=== PATIENT | male | born 1965 | race Caucasian/White ===

== ENCOUNTER 2022-06-25 13:11 | Emergency (ER) | payer OTHER, SELFPAY ==
[2022-06-25 13:22] VITALS: BP 161/74; PULSE 96; RESP 18; TEMP 36.8; O2SAT 97; BMI 28.7
[2022-06-25 13:30] VITALS: BP 154/104; PULSE 92; RESP 18; O2SAT 98
--- NOTE | 2022-06-25 13:36 | CRLHL7_ITS ---
For Patients: As a result of the Century Cures Act, medical imaging exams and procedure reports are released immediately into your electronic medical record. You may view this report before your referring provider. If you have questions, please contact your health care provider. INDICATION: CHEST PAIN TECHNIQUE: Chest 1 view. COMPARISON: 12/15/19 FINDINGS: Cardiovascular and mediastinum: Heart size and vasculature are normal in caliber and appearance. Mediastinum is within normal limits. Lungs and pleural space: Lungs are clear. No sign of infiltrate or mass. No sign of pleural effusion. No pneumothorax. Bones and soft tissues: No significant findings. IMPRESSION: Unremarkable chest. Dictated by: Jono Salinas MD @ 06/25/2022 14:23:49 (Electronically Signed)
[2022-06-25 13:43] LABS: Troponin, Point-of-Care* 0.01 ng/ml (0.01-0.04)
[2022-06-25 13:44] LABS: Basophils Absolute Auto 0.03 K/uL (0.00-0.30); Basophils Percent Auto 0.3 % (0.0-3.0); Eosinophils Absolute Auto 0.11 K/uL (0.00-0.50); Eosinophils Percent Auto 1.2 % (0.0-7.0); Hematocrit 44.9 % (37.0-53.0); Hemoglobin* 15.3 gm/dL (13.5-17.5); Immature Granulocytes Abs Auto 0.04 K/uL (0.00-0.30); Lymphocytes Absolute Auto 1.92 K/uL (0.90-2.90); Lymphocytes Percent Auto 21.4 % (20-44); Mean Corpuscular HGB Conc 34 gm/dL (32-36); Mean Corpuscular Hemoglobin 31 pg (26-34); Mean Corpuscular Volume 91 fL (80-100); Monocytes Percent Auto 9.7 % (0.0-11.0); Neutrophils Absolute Auto 6.01 K/uL (1.7-7.0); Platelet Count* 231 K/uL (140-440); RDW Coefficient of Variation % 12.9 % (11.5-15.5); Red Blood Count 4.91 m/uL (4.30-5.90); White Blood Count* 8.98 K/uL (4.50-11.00)
[2022-06-25] MEDS: ASPIRIN 81 MG TAB.CHEW 324 MG PO (13:46)
--- OUTSIDE RECORDS SUMMARY | 2022-06-25 13:47 | XMS_ITS | Clinical Summary ---
:1965 Author Organization [facility] [place] [address] Care Team Providers Name Role Phone Leticia Armendariz MD Primary Care Provider Allergies No known active allergies Medications Medication Sig Dispensed Refills Start Date End Date Status fenofibrate TAKE 2 TABLETS 0 08/14/2020 Ac tive nanocrystallized (TRICOR) BY MOUTH DAILY. 48 mg tablet omeprazole (PRILOSEC) 20 Take 20 mg by 0 Active mg Delayed-Release mouth. capsule tamsulosin (FLOMAX) 0.4 Take 0.8 mg by 0 08/06/2020 Active mg capsule mouth. sildenafil citrate Take 1 Tablet 0 10/31/2021 Active (VIAGRA) 100 mg tablet by mouth one time if needed. losartan (COZAAR) 50 mg Take 1 Tablet 90 Tablet 1 04/06/2022 Active tabletIndications: (50 mg) by Essential hypertension mouth once daily. amLODIPine (NORVASC) 5 mg Take 1 Tablet 90 Tablet 2 04/30/2022 Active tabletIndications: Benign (5 mg) by mouth essential HTN once daily. zolpidem (AMBIEN) 10 mg Take 1 Tablet 30 Tablet 0 05/05/2022 Active tabletIndications: (10 mg) by Primary insomnia mouth at bedtime if needed for Sleep. Active Problems Problem Noted Date Pulmonary nodules 02/22/2020 Overview: Formatting of this note might be differe nt from the original. 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 er 01/03/2018 Primary insomnia 01/03/2018 Atrial fibrillation status post cardioversion 08/24/20 13 Essential hypertension 08/24/2013 Esophageal reflux 12/02/2005 Encounters Date Type Specialty Care Team Description 06/06/2022 Emergency TorjaienAllison Facial l aceration, initial encounter (Primary Dx); DICK Knapp Injury of head, initial encounter; Nasal laceratio n, initial encounter 06/06/2022 Travel 04/07/2022 Office Visit Jeremias Horn MD Fol low Up (Cervical/ Lumbar Spine) 04/07/2022 Travel 03/25/2022 Telephone Jeremias Horn MD from Last 3 Months Immunizations Name Administration Dates Next Due Tdap 03/29/2016, 02/03/2006 Family History Medical History Relation Name Comments Other Father PVD Relation Name Status Comments Father Alive Mother Alive Social History Tobacco Use Types Packs/Day Years Used Date Current Every Day Smoker Cigarettes 0.5 Jean t: 09/02/2009 Smokeless Tobacco: Never Used Tobacco Cessation: Ready to Quit: Yes; C ounseling Given: Yes Comments: previous use 1.0ppd for 30 yea rs Alcohol Use Standard Drinks/Week Comments No 0 (1 standard drink = 0.6 oz pure alcoho l) 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 Date Recorded Not on file COVID-19 Exposure Response Date Recorded In the last 10 days, have you been in contact with No / Unsu re 06/06/2022 4:16 PM CDT someone who was confirmed or suspected to have Coronavirus/COVID-19? Obstetrics History Last Filed Vital Signs Vital Sign Reading Time Taken Comments Blood Pressure 130/80 06/06/2022 5:00 PM CDT Pulse 79 06/06/2022 5:00 PM CDT Temperature 36.8 ??C (98.2 ??F) 06/06/2022 4:20 PM CDT Respiratory Rate 18 06/06/2022 5:00 PM CDT Oxygen Saturation 99% 06/06/2022 5:00 PM CDT Inhaled Oxygen Concentration - - Weight 90.7 kg (200 lb) 06/06/2022 4:20 PM CDT Height 177.8 cm (5' 10) 06/06/2022 4:20 PM CDT Body Mass Index 28.7 06/06/2022 4:20 PM CDT Plan of Treatment Health Maintenance Due Date Last Done Comments Pneumococcal series for age 19-64 1971 (1 - PCV) Hepatitis C screening for age 0703/18/1983 18-79 Zoster (shingles) series for age 0703/18/2015 50+ (1 of 2) Lipids for age 45-75 04/01/2016 04/01/2011 COVID-19 vaccine series (3 - 07/01/2021 05/06/2021, 021 Booster for Moderna series) Influenza for age 50-64 05/06/2022 Depression screening for age 12+ 12/24/2022 12/24/2021 BMI (ht and wt on same day) for 04/07/2023 04/07/2022, 02/03, age 18+ 12/24/2021, Additional history exists Colonoscopy through age 75 06/25/2025 06/25/2015 Tetanus booster 03/29/2026 03/29/2016, 02/03/2006 Tdap Completed 03/29/2016, 02/03/2006 Procedures Procedure Name Priority Date/Time Associated Comments Diagnosis CT HEAD BRAIN AND STAT 06/06/2022 4:56 PM Resu lts for this FACIAL BONES WO CDT procedure ar e in the results section. LACERATION REPAIR Routine 06/06/2022 4:41 PM Resu lts for this CDT procedure are i n the results section. from Last [address] HEAD BRAIN AND FACIAL BONES WO (06/06/2022 4:56 PM CDT) Anatomical Region Laterality Modality HEAD, BRAIN, SINUS Computed Tomography Specimen (Source) Anatomical Collection Method Collection Time Re ceived Time Location / / Volume Laterality 06/06/2022 5:17 PM CDT Addenda Addendum by Aryan Malloy MD on 10/2021 5:24 PM CDT For Patients: ??As a result of the Century Cures Act, medical imaging exams and procedure reports are released immediately into your electronic medical record. ??You may view this repo rt before your referring provider. ?? If you have questions, please contact [facility] health care provider. Indication: Laceration Technique: CT examination of the facial bones was p erformed. Imaging was acquired from a above the frontal sinuses through below the hyoid bone. Contrast was not administered. Sagittal and coron al reformatted imaging was also performed. Please note that all CT scans at this [facility] use dose modulation, iterative reconstruction, and/or weight- based dosing when appropriate to reduce radiation dose to as low as reaso nably achievable. Comparison: None Findings: There is no radiopaque foreign body iden tified within the soft tissues. There is carious dentition diffusely. Th is includes abnormal periapical lucencies. Follow-up dental evaluation i s recommended at a clinically appropriate time. There are nasal bone fractures that are probably not acute. Correlate with point tenderness in this area. There are no additional findings suggesting fracture involving the orbits or facial bones. Impression: 1. Nasal bone fractures, nondisplaced. T hey are probably not acute. Correlate with point tenderness in this area. Otherwise, there is no suggestion of acute fracture involving t he orbits or facial bones. 2. Carious dentition for which dental fo llow-up is recommended in the not acute care setting. Please note that all CT scans at this [facility] use dose modulation, iterative reconstruction, and/or weight- based dosing when appropriate to reduce radiation dose to as low as reaso nably achievable. Dictated by Aryan Malloy MD @ 2 5:23:34 PM (Electronically Signed) Impressions 06/06/2022 5:17 PM CDT No acute intracranial posttraumatic findings. Please note that all CT scans at this [facility] use dose modulation, iterative reconstruction, and/or weight-based dosing when appropriate to reduce radiation dose to as low as reasonably achievable. Dictated by Aryan Malloy MD @ 2 5:17:26 PM (Electronically Signed) Narrative 06/06/2022 5:17 PM CDT For Patients: ??As a result of the Century Cures Act, medical imaging exams and procedure report s are released immediately into your [facility] medical record. ??You may view this report before your referring provider. ??If you have questions, please contact your health care provider. INDICATION: Laceration COMPARISON: None TECHNIQUE: CT examination of the head was performed as axial sections without intravenous contrast. Images were obtained from the vertex of the skull through the skull base. Please note that all CT scans at this [facility] use dose modulation, iterative reconstruction, and/or weight-based dosing when appropriate to reduce radiation dose to as low as reasonably achievable. FINDINGS: The brain shows no sign of mass lesion, mass effect, hemorrhage, or edema. The ventricles and sulci are normal in a ppearance for the patient`s age. The visualized portions of the orbits ar e normal in appearance. The osseous structures are normal in the ir appearance with no sign of abnormality in the skull base or calvarium. Procedure Note Aryan Malloy MD - 06/06/2022Format ting of this note might be different from the original. For Patients: As a result of the ntury Cures Act, medical imaging exams and procedure reports are released immediately into your electronic medical record. You may view this report before your referring provider. If you have questions, please contact [facility] care provider. INDICATION: Laceration COMPARISON: None TECHNIQUE: CT examination of the head was performed as axial sections without intravenous contrast. Images were obtained from the vertex of the skull through the skull base. Please note that all CT scans at this fa cility use dose modulation, iterative reconstruction, and/or weight-based dosing when appropriate to reduce radiation dose to as low as reasonably achievable. FINDINGS: The brain shows no sign of mass lesion, mass effect, hemorrhage, or edema. The ventricles and sulci are normal in a ppearance for the patient`s age. The visualized portions of the orbits ar e normal in appearance. The osseous structures are normal in the ir appearance with no sign of abnormality in the skull base or calvarium. IMPRESSION: No acute intracranial posttraumatic find ings. Please note that all CT scans at this fa cility use dose modulation, iterative reconstruction, and/or weight-based dosing when appropriate to reduce radiation dose to as low as reasonably achievable. Dictated by Aryan Malloy MD @ 5:17:26 PM (Electronically Signed) Allison Sahu NP CT LACERATION REPAIR (06/06/2022 4:41 PM CDT) Narrative Allison Sahu NP - 022 4:41 PM CDT Allison Sahu NP ? 06/06/2022 ??5:39 PM LACERATION REPAIR Date/Time: 06/06/2022 4:41 PM Performed by: Allison Sahu NP Authorized by: Allison Sahu NP Consent: ??Consent obtained: ??Verbal ??Consent given by: ??Patient ??Risks, benefits, and alternatives wer e discussed: yes ?Risks discussed: ??Pain and poor cosm etic result ??Alternatives discussed: ??No treatmen t [place] protocol: ??Procedure explained and questions ans wered to patient or proxy's satisfaction: yes ?Relevant documents present and verifi ed: yes ?Test results available: yes ?Imaging studies available: yes ?Required blood products, implants, de vices, and special equipment available: no ?Site/side marked: yes ?Immediately prior to procedure, a hayder e out was called: yes ?Patient identity confirmed: ??Verball y with patient Anesthesia: ??Anesthesia method: ??Topical applicat ion ??Topical anesthetic: ??LET Laceration details: ??Location: ??Face ??Face location: ??Forehead (nose sutur e) ??Length (cm): ??5 ??Depth (mm): ??6 Pre-procedure details: ??Preparation: ??Patient was prepped an d draped in usual sterile fashion Exploration: ??Limited defect created (wound extende d): no ?Hemostasis achieved with: ??Direct pr essure ??Imaging obtained: x-ray ?Imaging outcome: foreign body not not ed ?Wound exploration: entire depth of wo und visualized ?Wound extent: no nerve damage noted, no tendon damage noted and no vascular damage noted ?Contaminated: no ?? Treatment: ??Area cleansed with: ??Saline and Shur -Clens ??Amount of cleaning: ??Standard ??Irrigation solution: ??Sterile saline ??Irrigation volume: ??5000 ??Irrigation method: ??Pressure wash ??Visualized foreign bodies/material re moved: no ?Debridement: ??None ??Undermining: ??None ??Scar revision: no ?? Skin repair: ??Repair method: ??Sutures ??Suture size: ??4-0 ??Suture technique: ??Simple interrupte d ??Number of sutures: ??6 Approximation: ??Approximation: ??Close Repair type: ??Repair type: ??Simple Post-procedure details: ??Dressing: ??Adhesive bandage, antibio tic ointment and non-adherent dressing ??Procedure completion: ??Tolerated wel l, no immediate complications Comments: ?? he has a total of 2 lacerations. ??F irst laceration is on his forehead right side above the eyebrow measuring 2 cm, second laceration is over the nose measuring 3 cm Allison Sahu NP PROCEDURE ORD from Last 3 Months Insurance Payer Benefit Plan Subscriber ID Effective Dates Phone Address Type / Group WC WORKERS WC WORKERS [id number] Effective for [phone] [address] [place] [address] MEDICA MEDICA CHOICE [id number] 2020-Presen [address] [address] [place] [address] Feng Perez Workers Comp Self [birth year] [facility] (Home) [phone] [place] (Work) [id number] Care Teams Glass Wool Blanket Machine Feeder Relationship Specialty Start Date End Date Leticia Armendariz MD PCP - General Internal Medicine 07/27/21 [address] [place], [place] [address]
--- OUTSIDE RECORDS SUMMARY | 2022-06-25 13:47 | XMS_ITS | Encounter Summary ---
:1965 Author Organization [facility] Address [address] [place] [address] Care Team Providers Name Role Phone Leticia Armendariz MD Primary Care Provider Nahum Lemus MD Unavailable Karuna Ramirez MD Unavailable [phone] Karime Castro DO Unavailable Tito Almonte MD Unavailable Torsten Rodriguez MD Unavailable Annabelle Shields CNP Unavailable Reason for Visit Reason Comments Medication Refill ambien Encounter Details Date Type Department Care Team Description 10/31/2021 Refill [facility] Maged Aggarwal, Med ication Refill Clinic [facility] BOURGEOIS (ambien) [address] [place] [address] [place], [place] [phone] (Wo rk) [address] [phone] Social History Tobacco Use Types Packs/Day Years Used Date Smoking Tobacco: Every Day Cigarettes 0.8 25 Smokeless Tobacco: Never Comments: 1 pack daily Alcohol Use Standard Drinks/Week Comments No 0 (1 standard drink = 0.6 oz pure alcoho l) 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 Date Recorded 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 encounter Miscellaneous Notes Telephone Encounter - Natali Hamilton RN - 11/02/2021 10:48 AM CST Routing refill request to provider for review/approval because: Drug not on the [facility] refill protocol Routed to provider covering the letter Too Armendariz FACTURING ASSISTANT documented in this encounter Plan of Treatment Not on filedocumented as of this encounter Visit Diagnoses Diagnosis Primary insomnia Persistent disorder of initiating or adrianne ntaining sleep documented in this encounter Additional Health Concerns Assessment Noted Time PHQ-9 Depression Total Score: 3 01/08/2021 4:16 PM CDT documented as of this encounter Care Teams Automotive Artist Relationship Specialty Start Date End Date Leticia Armendariz, PCP - General Internal Medicine 03/17/15 Nahum Lemus MD 09/16/16 [facility] [address] [facility] [facility] [address] [place] [phone] Karuna Ramirez MD Cardiology 09/16/16 MD Erend[place] Karime Castro, Referring Physician Orthopedics 05/13/17 DO [facility] [address] [id number] Tito Almonte MD MD Orthopedics 05/13/[address] [place], [place] [address] Torsten Rodriguez MD Assigned Musculoskeletal 08/24/20 02/19/22 [address] [facility] Provider [place], [place] [id number] Annabelle Shields CNP Assigned PCP 02/08/[address] [place], [place] [address] documented as of this encounter
--- OUTSIDE RECORDS SUMMARY | 2022-06-25 13:47 | XMS_ITS | Encounter Summary ---
:1965 Author Organization [facility] Address [address] [place] [address] Care Team Providers Name Role Phone Leticia Armendariz MD Primary Care Provider Nahum Lemus MD Unavailable Karuna Ramirez MD Unavailable [phone] Karime Castro DO Unavailable Tito Almonte MD Unavailable Annabelle Shields CNP Unavailable Reason for Visit Reason Comments Medication Refill Encounter Details Date Type Department Care Team Description 02/26/2022 Refill [facility] Maged Aggarwal MD Medication Refill [address] [place] [address] [facility] [place] [address] [phone] Social History Tobacco Use Types Packs/Day Years Used Date Smoking Tobacco: Every Day Cigarettes 0.8 25 Smokeless Tobacco: Never Comments: 1 pack daily Alcohol Use Standard Drinks/Week Comments No 0 (1 standard drink = 0.6 oz pure alcoho l) 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 Date Recorded 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 as of this encounter Miscellaneous Notes Telephone Encounter - Natali Hamilton RN - 02/26/2022 11:31 AM CDT Routing refill request to provider for review/approval because: Drug not on the [facility] refill protocol Routed to covering provider for Juan Colov documented in this encounter Plan of Treatment Not on filedocumented as of this encounter Visit Diagnoses Diagnosis Primary insomnia Persistent disorder of initiating or adrianne ntaining sleep documented in this encounter Additional Health Concerns Assessment Noted Time PHQ-9 Depression Total Score: 3 01/08/2021 4:16 PM CDT documented as of this encounter Care Teams Pharmacognosist Relationship Specialty Start Date End Date Leticia Armendariz MD PCP - General Internal Medicine 03/17/15 Nahum Lemus MD 09/16/16 [place] [facility] [address] [place] [id number] Karuna Ramirez MD MD Cardiology 09/16/16 Karime Castro DO Referring Physician Orthopedics 05/13/17 [facility] [address] [id number] Tito Almonte MD MD Orthopedics 05/13/[address] [place], [place] [address] Annabelle Shields, LINSEED CAKE TRIMMER Assigned PCP 02/08/[address] [place], [place] [id number] documented as of this encounter
--- OUTSIDE RECORDS SUMMARY | 2022-06-25 13:47 | XMS_ITS | Encounter Summary ---
:1965 Author Organization [facility] Address [address] [place] [address] Care Team Providers Name Role Phone Leticia Armendariz MD Primary Care Provider Nahum Lemus MD Unavailable Karuna Ramirez MD Unavailable [phone] Karime Castro DO Unavailable Tito Almonte MD Unavailable Annabelle Shields CNP Unavailable Reason for Visit Reason Comments Medication Refill Encounter Details Date Type Department Care Team Description 04/03/2022 Refill [facility] Annabelle Shields CNP Medication Refill [place] [address] [address] [facility] [address] [facility] [place] [address] [facility] [place] [address] [phone] Social History Tobacco Use Types Packs/Day Years Used Date Smoking Tobacco: Every Day Cigarettes 0.8 25 Smokeless Tobacco: Never Comments: 1 pack daily Alcohol Use Standard Drinks/Week Comments No 0 (1 standard drink = 0.6 oz pure alcoho l) 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 Date Recorded Male 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 Patient is seeing Dr. Armendariz at [facility], please advise pharmacy to forward to Dr. Armendariz at [facility], see my note from 02/04/22. Please inform pharmacy to send all further refills to [facility]. Telephone Encounter - Akila Low RN - 04/05/2022 6:45 PM CDT Pending Prescriptions: Disp Refills losartan (COZAAR) 50 MG tablet [Pharmacy M*90 tab*2 Sig: TAKE 1 TABLET BY MOUTH EVERY DAY Routing refill request to provider for review/approval because: Patient needs to be seen because it has been more than 1 year since last office visit. documented in this encounter Plan of Treatment Not on filedocumented as of this encounter Visit Diagnoses Diagnosis Atrial fibrillation status post cardiove rsion documented in this encounter Additional Health Concerns Assessment Noted Time PHQ-9 Depression Total Score: 3 01/08/2021 4:16 PM CDT documented as of this encounter Care Teams Joiner Apprentice Relationship Specialty Start Date End Date Leticia Armendariz MD PCP - General Internal Medicine 03/17/15 Nahum Lemus MD 09/16/16 [place] [facility] [address] [facility] [facility] [address] [place] [phone] Karuna Ramirez MD MD Cardiology 09/16/16 Karime Castro DO Referring Physician Orthopedics 05/13/17 [facility] [address] [facility] [address] [place] [address] Tito Almonte MD MD Orthopedics 05/13/17 [address] [facility] [address] [place] [address] Annabelle Shields, EDISON Assigned PCP 02/08/21 [address] [place] [address] documented as of this encounter
--- OUTSIDE RECORDS SUMMARY | 2022-06-25 13:47 | XMS_ITS | Encounter Summary ---
:1965 Author Organization [place] Address [address] [place] [address] Care Team Providers Name Role Phone Leticia Armendariz MD Primary Care Provider Nahum Lemus MD Unavailable Karuna Ramirez MD Unavailable [phone] Karime Castro DO Unavailable Tito Almonte MD Unavailable Torsten Rodriguez MD Unavailable Annabelle Shields CNP Unavailable Reason for Visit Reason Comments Medication Refill Encounter Details Date Type Department Care Team Description 11/12/2021 Refill [facility] Annabelle Shields CNP Medication Refill [address] [place] [address] [facility] [place] [address] [phone] Social History Tobacco Use Types Packs/Day Years Used Date Smoking Tobacco: Every Day Cigarettes 0.8 25 Smokeless Tobacco: Never Comments: 1 pack daily Alcohol Use Standard Drinks/Week Comments No 0 (1 standard drink = 0.6 oz pure alcoho l) 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 Date Recorded 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 Telephone Encounter - Janina Pavon RN - 11/13/2021 10:13 AM CST Prescription approved per [facility] Refill Protocol. Routing to [place]/[facility] [employer]. The Pt is due for a visit with PCP in January with a new provider Janina Polk RN, BSN LIFE REFUGE SPECIALIST documented in this encounter Plan of Treatment Not on filedocumented as of this encounter Visit Diagnoses Diagnosis Dysuria documented in this encounter Additional Health Concerns Assessment Noted Time PHQ-9 Depression Total Score: 3 01/08/2021 4:16 PM CDT documented as of this encounter Care Teams Dry Roller Relationship Specialty Start Date End Date Leticia Armendariz, PCP - General Internal Medicine 03/17/15 Nahum Lemus MD 09/16/16 [facility] [address] [facility] [place] [address] Karuna Ramirez MD Cardiology 09/16/16 MD [place] Karime Castro, Referring Physician Orthopedics 05/13/[address] [facility] [address] [facility] [address] [place] [address] Tito Almonte MD MD Orthopedics 05/13/[address] [place] [address] Torsten Rodriguez MD Assigned Musculoskeletal 08/24/20 02/19/22 909 [facility] Provider [place], [place] [address] Annabelle Shields CNP Assigned PCP 02/08/[address] [place], [place] [id number] documented as of this encounter
--- OUTSIDE RECORDS SUMMARY | 2022-06-25 13:47 | XMS_ITS | Encounter Summary ---
:1965 Author Organization [place] Address [address] [place] [address] Care Team Providers Name Role Phone Leticia Armendariz MD Primary Care Provider Nahum Lemus MD Unavailable Karuna Ramirez MD Unavailable [phone] Karime Castro DO Unavailable Tito Almonte MD Unavailable Leticia Armendariz MD Unavailable Cristian Cooper MD Unavailable Torsten Rodriguez MD Unavailable Encounter Details Date Type Department Care Team Description 01/15/2021 Travel Social History Tobacco Use Types Packs/Day Years Used Date Smoking Tobacco: Every Day Cigarettes 0.8 25 Smokeless Tobacco: Never Comments: 1 pack daily Alcohol Use Standard Drinks/Week Comments No 0 (1 standard drink = 0.6 oz pure alcoho l) 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 Date Recorded 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 documented as of this encounter Plan of Treatment Not on filedocumented as of this encounter Visit Diagnoses Not on filedocumented in this encounter Additional Health Concerns Assessment Noted Time PHQ-9 Depression Total Score: 3 01/08/2021 4:16 PM CDT documented as of this encounter Care Teams Scratch Brusher Relationship Specialty Start Date End Date Leticia Armendariz, PCP - General Internal Medicine 03/17/15 Nahum Lemus MD 09/16/16 [place] [facility] [address] [facility] [place] [address] Karuna Ramirez MD Cardiology 09/16/16 MD Erendira Karime Castro, Referring Physician Orthopedics 05/13/17 DO [facility] [address] [facility] [address] [place], [place] [phone] Tito Almonte MD MD Orthopedics 05/13/[address] [place], [place] [phone] Leticia Armendariz, Assigned PCP 12/30/19 02/07/21 [facility] [address] [place] [address] Cristian Cooper MD Assigned Heart and 06/27/20 07/11/21 [address], Vascular Provider [facility] [address] [place], [place] [address] Torsten Rodriguez MD Assigned Musculoskeletal 08/24/20 02/19/22 [address] [facility] [place] [address] documented as of this encounter
--- OUTSIDE RECORDS SUMMARY | 2022-06-25 13:47 | XMS_ITS | Encounter Summary ---
:1965 Author Organization [place] Address [address] [place] [address] Care Team Providers Name Role Phone Leticia rAmendariz MD Primary Care Provider Nahum Lemus MD Unavailable Karuna Ramirez MD Unavailable [phone] Karime Castro DO Unavailable Tito Almonte MD Unavailable Leticia Armendariz MD Unavailable Cristian Cooper MD Unavailable Torsten Rodriguez MD Unavailable Reason for Visit Reason Comments Medication Refill Encounter Details Date Type Department Care Team Description [facility] Leticia Armendariz, Medication Refill [place] MD [address] [place] [address] 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 documented as of this encounter Miscellaneous Notes Telephone Encounter - Jasmin Mcdowell MA - 02/05/2021 7:04 AM CDT Controlled Substance Refill Request for zolpidem (AMBIEN) 10 MG tablet 30 tablet 1 10/06/2020 Problem List Complete: No PROVIDER TO CONSIDER COMPLETION OF PROBLEM LIST AND OVERVIEW/CONTROLLED SUBSTANCE AGREEMENT Last Written Prescription Date: 10/06/2020 Last Fill Quantity: 30, # refills: 1 THE MOST RECENT OFFICE VISIT MUST BE WITHIN THE PAST 3 MONTHS. AT LEAST ONE FACE TO FACE VISIT MUST OCCUR EVERY 6 MONTHS. ADDITIONAL VISITS CAN BE VIRTUAL. (THIS STATEMENT SHOULD BE DELETED.) Last Office Visit with [facility] primary care provider: 01/29/2021 Future Office visit: Controlled substance agreement: Encounter-Level CSA: There are no encounter-level csa. Patient-Level CSA: There are no patient-level csa. Last Urine Drug Screen: No results found for: CDAUT, No results found for: COMDAT, No results found for: THC13, PCP13, COC13, MAMP13, OPI13, AMP13, BZO13, TCA13, MTD13, BAR13, OXY13, PPX13, BUP13 Processing: Rx to be electronically transmitted to pharmacy by provider [email or web address] documented in this encounter Plan of Treatment Not on filedocumented as of this encounter Visit Diagnoses Diagnosis Primary insomnia Persistent disorder of initiating or adrianne ntaining sleep documented in this encounter Additional Health Concerns Assessment Noted Time PHQ-9 Depression Total Score: 3 01/08/2021 4:16 PM CDT documented as of this encounter Care Teams Alteration Hand Relationship Specialty Start Date End Date Leticia Armendariz, PCP - General Internal Medicine 03/17/15 Nahum Lemus MD 09/16/16 [facility] [address] [place] [address] Karuna Ramirez MD Cardiology 09/16/16 MD Erendira Karime Castro, Referring Physician Orthopedics 05/13/17 DO [facility] [address] [facility] [address] [place] [address] Tito Almonte MD MD Orthopedics 05/13/[address] [place] [address] Leticia Armendariz, Assigned PCP 12/30/19 02/07/21 [facility] [address] [place], [place] [phone] Cristian Cooper MD Assigned Heart and 06/27/20 07/11/21 [address], Vascular Provider [facility] [address] [place], [place] [address] Torsten Rodriguez MD Assigned Musculoskeletal 08/24/20 02/19/[address] [place] [address] documented as of this encounter
--- OUTSIDE RECORDS SUMMARY | 2022-06-25 13:47 | XMS_ITS | Encounter Summary ---
:1965 Author Organization [place] Address [address] [place] [address] Care Team Providers Name Role Phone Leticia Armendariz MD Primary Care Provider Nahum Lemus MD Unavailable Karuna Ramirez MD Unavailable [phone] Karime Castro DO Unavailable Tito Almonte MD Unavailable Leticia Armendariz MD Unavailable Cristian Cooper MD Unavailable Torsten Rodriguez MD Unavailable Encounter Details Date Type Department Care Team Description 01/29/2021 Travel Social History Tobacco Use Types Packs/Day Years Used Date Smoking Tobacco: Every Day Cigarettes 0.8 25 Smokeless Tobacco: Never Comments: 1 pack daily Alcohol Use Standard Drinks/Week Comments No 0 (1 standard drink = 0.6 oz pure alcoho l) 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 Date Recorded 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 Date Recorded In the [...] documented as of this encounter Care Teams Rivet Maker Relationship Specialty Start Date End Date Leticia Armenadriz, PCP - General Internal Medicine 03/17/15 Nahum Lemus MD 09/16/16 [place] [facility] [address] [facility] [place] [address] Karuna Ramirez MD Cardiology 09/16/16 MD Erendira Karime Castro, Referring Physician Orthopedics 05/13/17 DO [facility] [address] [facility] [address] [place], [place] [phone] Tito Almonte MD MD Orthopedics 05/13/[address] [place], [place] [phone] Leticia Armendariz, Assigned PCP 12/30/19 02/07/21 [facility] [address] [place] [address] Cristian Cooper MD Assigned Heart and 06/27/20 07/11/21 [address], Vascular Provider [facility] [address] [place], [place] [address] Torsten Rodriguez MD Assigned Musculoskeletal 08/24/20 02/19/22 909 [place] [address] documented as of this encounter
--- OUTSIDE RECORDS SUMMARY | 2022-06-25 13:47 | XMS_ITS | Encounter Summary ---
:1965 Author Organization [place] Address [address] [place] [address] Care Team Providers Name Role Phone Leticia Armendariz MD Primary Care Provider Nahum Lemus MD Unavailable Karuna Ramirez MD Unavailable [phone] Karime Castro DO Unavailable Tito Almonte MD Unavailable Leticia Armendariz MD Unavailable Cristian Cooper MD Unavailable Torsten Rodriguez MD Unavailable Reason for Visit Reason Onset Date Comments Panel Management 01/08/2021 PHQ9 is due Encounter Details Date Type Department Care Team Description 01/08/2021 [facility] Annabelle Shields CNP Panel Management (PHQ9 [facility] [place] [address] [facility] is due) [address] [place] [address] [facility] [place] [address] Social History Tobacco Use Types Packs/Day Years Used Date Smoking Tobacco: Every Day Cigarettes 0.8 25 Smokeless Tobacco: Never Comments: 1 pack daily Alcohol Use Standard Drinks/Week Comments No 0 (1 standard drink = 0.6 oz pure alcoho l) 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 Date Recorded 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 documented as of this encounter Miscellaneous Notes Telephone Encounter - Opal Mclean MA - 01/08/2021 4:16 PM CDT Patient Quality Outreach Summary: Patient has the following on his problem list/HM: Depression / Dysthymia review 6 Month Remission: 4-8 month window range: 12 Month Remission: 10-14 month window range: PHQ-9 SCORE 12/20/2019 02/19/2020 01/08/2021 PHQ-9 Total Score MyChart - - - PHQ-9 Total Score 0 19 3 If PHQ-9 recheck is 5 or more, route to provider for next steps. Patient is due/failing the following: PHQ-9 Needed Type of outreach: Patient was seen today and PHQ9 was done in clinic. Questions for provider review: None Opal Mclean MA Chart routed to closed. documented in this encounter Plan of Treatment Not on filedocumented as of this encounter Visit Diagnoses Not on filedocumented in this encounter Additional Health Concerns Assessment Noted Time PHQ-9 Depression Total Score: 3 01/08/2021 4:16 PM CDT documented as of this encounter Care Teams Jinrikisha Driver Relationship Specialty Start Date End Date Leticia Armendariz, PCP - General Internal Medicine 03/17/15 Nahum Lemus MD 09/16/16 [place] [facility] [address] [facility]1] [place] [phone] Karuna Ramirez MD Cardiology 09/16/16 MD Erendira Karime Castro, Referring Physician Orthopedics 05/13/17 DO [facility] [address] [facility] [address] [place], [place] [phone] Tito Almonte MD MD Orthopedics 05/13/[address] [place] [address] Leticia Armendariz, Assigned PCP 12/30/19 02/07/21 [facility] [address] [place] [address] Cristian Cooper MD Assigned Heart and 06/27/20 07/11/21 [address], Vascular Provider [facility] [address] [place], [place] [address] Torsten Rodriguez MD Assigned Musculoskeletal 08/24/20 02/19/22 [address] [facility] [place] [address] documented as of this encounter
--- OUTSIDE RECORDS SUMMARY | 2022-06-25 13:47 | XMS_ITS | Clinical Summary ---
:1965 Author Organization [place] Address [address] [place] [address] Care Team Providers Name Role Phone Leticia Armendariz MD Primary Care Provider Nahum Lemus MD Unavailable Karuna Ramirez MD Unavailable [phone] Karime Castro DO Unavailable Tito Almonte MD Unavailable Annabelle Shields CNP Unavailable Allergies No known active allergies Medications Medication Sig Dispensed Refills Start Date End Date Status omeprazole (PRILOSEC) Take 20 mg by 0 Active 20 MG CR capsule mouth daily ciclopirox (LOPROX) Apply topically 2 90 g 1 08/24/2019 Active 0.77 % times daily creamIndications: Rash sertraline (ZOLOFT) 50 TAKE 1 TABLET BY 30 tablet 0 01/27/2021 Active MG tabletIndications: MOUTH EVERY DAY Mild single current episode of major depressive disorder (H), LUIS FELIPE (generalized anxiety disorder) amLODIPine (NORVASC) 5 TAKE 1 TABLET BY 90 tablet 3 05/08/2021 Active MG tabletIndications: MOUTH EVERY DAY Atrial fibrillation status post cardioversion (H) losartan (COZAAR) 50 TAKE 1 TABLET BY 90 tablet 2 05/19/2021 Active MG tabletIndications: MOUTH EVERY DAY Atrial fibrillation status post cardioversion (H) tamsulosin (FLOMAX) TAKE 1 CAPSULE BY 90 capsule 0 11/13/2021 Active 0.4 MG MOUTH EVERY DAY capsuleIndications: Dysuria fenofibrate (TRICOR) TAKE 2 TABLETS BY 180 tablet 0 01/25/2022 Active 48 MG MOUTH EVERY DAY tabletIndications: Elevated triglycerides with high cholesterol zolpidem (AMBIEN) 10 TAKE 1 TABLET BY 15 tablet 0 04/02/2022 Active MG tabletIndications: MOUTH EVERY DAY Primary insomnia AT BEDTIME NEEDED. Due for follow up for future refills. Active Problems Problem Noted Date Pulmonary nodules 02/22/2020 Overview: Follow up due 02/2021 Dilated aortic root 01/08/2020 Primary insomnia 01/03/2018 Mild single current episode of major depressive disord er 01/03/2018 Essential hypertension 03/30/2017 Tremors of nervous system 10/18/2014 Cervical disc herniation 03/08/2014 HTN (hypertension) 08/24/2013 Atrial fibrillation status post cardioversion 08/24/20 13 CARDIOVASCULAR SCREENING; LDL GOAL LESS THAN 130 08/24 High triglycerides Resolved Problems Problem Noted Date Resolved Date Cervicalgia 02/14/2017 03/29/2017 Low back pain 07/17/2014 07/24/2014 Overview: Diagnosis updated by automated process. Provider to review and confirm. S/P cervical spinal fusion 04/15/2014 03/29/2017 Encounters Date Type Specialty Care Team Description 05/03/2022 Refill Internal Medicine Sascha Fitzgerald MD Medication Refill 04/23/2022 Refill Internal Medicine Annabelle Shields CNP Medi cation Refill 04/03/2022 Refill Internal Medicine Annabelle Shields CNP Medi cation Refill 04/01/2022 Refill Internal Medicine Sascha Fitzgerald MD Medication Refill from Last 3 Months Immunizations Name Administration Dates Next Due TDAP Vaccine (Adacel) 03/29/2016 Tdap (Adacel,Boostrix) 02/03/2006 Family History Medical History Relation Comments Circulatory Father Coronary Artery Disease Father Hyperlipidemia Father Hypertension Father C.A.D. Maternal Grandmother Arthritis Mother Hypertension Mother C.A.D. 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 Filed Vital Signs Vital Sign Reading Time Taken Comments Blood Pressure 134/78 01/29/2021 2:29 PM CDT Pulse 88 01/29/2021 2:29 PM CDT Temperature 36.8 ??C (98.2 ??F) 01/29/2021 2:29 PM CDT Respiratory Rate 16 01/29/2021 2:29 PM CDT Oxygen Saturation 98% 01/29/2021 2:29 PM CDT Inhaled Oxygen Concentration - - Weight 93.4 kg (205 lb 12.8 oz) 01/29/2021 2:29 PM CDT Height 177.8 cm (5' 10) 01/08/2021 2:59 PM CDT Body Mass Index 29.53 01/08/2021 2:59 PM CDT Plan of Treatment Health Maintenance Due Date Last Done Comments ADVANCE CARE PLANNING 1965 ANNUAL REVIEW OF HM ORDERS 1965 CT COLONOGRAPHY 1965 DEPRESSION ACTION PLAN 1965 FIT-DNA (Cologuard) 1965 FLEX SIG 1965 HEPATITIS B IMMUNIZATION (1 1965 of 3 - 3-dose series) COVID-19 Vaccine (#1) 1965 Pneumococcal Vaccine: 1971 Pediatrics (0 to 5 Years) and At-Risk Patients (6 to 64 Years) (1 - PCV) HIV SCREENING 1980 FIT 12/27/2014 12/27/2013 ZOSTER IMMUNIZATION (1 of 2015 2) LUNG CANCER SCREENING 10/26/2016 10/26/2015 YEARLY PREVENTIVE VISIT 01/03/2019 01/03/2018 PHQ-9 07/11/2021 01/08/2021, 02/19/2020, 12/20/2019, Additional history exists INFLUENZA VACCINE (#1) 2022 08/24/2019 (Declined), 07/17/2018 (Declined) COLONOSCOPY 06/25/2025 06/25/2015, 06/25/2015 COLORECTAL CANCER SCREENING 06/25/2025 LIPID 01/29/2026 01/29/2021, 07/12/2018, 04/26/2018, Additional history exists DTAP/TDAP/TD IMMUNIZATION 03/29/2026 03/29/2016, 02/03/2006 (3 - Td or Tdap) HEPATITIS C SCREENING Completed 03/29/2016 IPV IMMUNIZATION Aged Out No longer eligi ble based on patient 's age to complete this topic MENINGITIS IMMUNIZATION Aged Out No longe r eligible based on patient 's age to complete this topic Medical Devices Implanted Type Area Air Conditioner Installer Helper Device Shelf Model / Identifier Expiration Serial / Date Lot Mesh Ultrapro Hernia 2.4x4.7 Large Uhsl Mesh Left: Groin [employer] 11/03/2019 UHSL / Implanted: Qty: 1 on 07/21/2018 by Jono Loving MD at [facility]- / [id number] 4.2x16mm Fixed N/A: Spine 150. 016 / Implanted: Qty: 2 on 04/15/2014 by Umang Polanco MD at [facility] Cervical / 1 2 [id number] Insurance Payer Benefit Plan / Subscriber ID Effective Dates Phone Addre ss Type Group MEDICA MEDICA CHOICE [id number] 2020-Present [phone] [address] [address] Indemnity 2 [place] [address] Feng Perez Personal/Family Self 1965 [id number] (Home) [facility] [phone] Deena AGUILERA (Work) [phone] Feng Perez Behavioral Self 1965 [id number] (Home) [facility] [phone] Deena AGUILERA (Work) [phone] Advance Directives For more information, please contact: [phone] Latest Code Status on File Code Status Date Activated Date Inactivated Comments Full Code 04/12/2019 10:26 AM Question Answer Comments Code status determined by: Discussion with patient/legal dec ision maker Code Status History Code Status Date Activated Date Inactivated Comments Full Code 04/16/2014 7:28 AM 04/12/2019 6:06 AM Full Code 04/15/2014 3:51 PM 04/16/2014 7:28 AM Care Teams Roof Shingler Relationship Specialty Start Date End Date Leticia Armendariz MD PCP - General Internal Medicine 03/17/15 Nahum Lemus MD 09/16/16 [facility] [address] [facility] [address] [place] [phone] Karuna Ramirez MD MD Cardiology 09/16/16 Karime Castro DO Referring Physician Orthopedics 05/13/17 [facility] [address] [facility] [address] [place], [place] [phone] Tito Almonte MD MD Orthopedics 05/13/17 [address] [facility] [address] [place] [address] Annabelle Shields, EDISON Assigned PCP 02/08/21 [address] [place], [place] [phone]
--- OUTSIDE RECORDS SUMMARY | 2022-06-25 13:47 | XMS_ITS | Encounter Summary ---
:1965 Author Organization [place] Address [address] [place] [address] Care Team Providers Name Role Phone Leticia Armendariz MD Primary Care Provider Nahum Lemus MD Unavailable Karuna Ramirez MD Unavailable [phone] Karime Csatro DO Unavailable Tito Almonte MD Unavailable Leticia Armendariz MD Unavailable Cristian Cooper MD Unavailable Torsten Rodriguez MD Unavailable Reason for Visit Reason Comments Medication Refill Encounter Details Date Type Department Care Team Description [facility] Let[facility] Armendariz, Medication Refill Jarrell MD [address] [place] [address] 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 documented as of this encounter Miscellaneous Notes Telephone Encounter - Cecelia Antonio RN - 01/27/2021 11:21 AM CDT Prescription approved per [facility] Refill Protocol. documented in this encounter Plan of Treatment Not on filedocumented as of this encounter Visit Diagnoses Diagnosis Mild single current episode of major dep ressive disorder (H) LUIS FELIPE (generalized anxiety disorder) Generalized anxiety disorder documented in this encounter Additional Health Concerns Assessment Noted Time PHQ-9 Depression Total Score: 3 01/08/2021 4:16 PM CDT documented as of this encounter Care Teams Emergency Room Physician Assistant Relationship Specialty Start Date End Date Leticia Armendariz, PCP - General Internal Medicine 03/17/15 Nahum Lemus MD 09/16/16 [place] [facility] [address] [facility] [address] [place] [phone] Karuna Ramirez MD Cardiology 09/16/16 MD Erendira Karime Castro, Referring Physician Orthopedics 05/13/17 DO [facility] [address] [facility] [address] [place] [address] Tito Almonte MD MD Orthopedics 05/13/17 [address] [facility] [address] [place] [address] Leticia Armendariz, Assigned PCP 12/30/19 02/07/21 [place] [address] [place] [id number] Cristian Cooper MD Assigned Heart and 06/27/20 07/11/21 [address], Vascular Provider [facility] [address] [place] [address] Torsten Rodriguez MD Assigned Musculoskeletal 08/24/20 02/19/22 909 [facility] Provider [place], [place] [phone] documented as of this encounter
--- OUTSIDE RECORDS SUMMARY | 2022-06-25 13:47 | XMS_ITS | Encounter Summary ---
:1965 Author Organization [place] Address [address] [place] [address] Care Team Providers Name Role Phone Leticia Armendariz MD Primary Care Provider Nahum Lemus MD Unavailable Karuna Ramirez MD Unavailable [phone] Karime Castro DO Unavailable Tito Almonte MD Unavailable Cristian Cooper MD Unavailable Torsten Rodriguez MD Unavailable Annabelle Shields CNP Unavailable Reason for Visit Reason Comments Medication Refill Encounter Details Date Type Department Care Team Description 06/05/2021 Refill [facility] Leticia Armendariz, Medication Refill [place] MD [address] [place] [address] [address] [place] [address] [place], [place] [address] (Wo rk) Social History Tobacco Use Types Packs/Day Years Used Date Smoking Tobacco: Every Day Cigarettes 0.8 25 Smokeless Tobacco: Never Comments: 1 pack daily Alcohol Use Standard Drinks/Week Comments No 0 (1 standard drink = 0.6 oz pure alcoho l) 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 Date Recorded 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 documented as of this encounter Miscellaneous Notes Telephone Encounter - Maged Aggarwal MD - 06/08/2021 5:18 PM CDT PDMP checked - no concerns Last office visit 01/29 Last refill 02/05 CSA Telephone Encounter - Natali Hamilton, RN - 06/05/2021 4:26 PM CDT Routing refill request to provider for review/approval because: Drug not on the [facility] refill protocol Routed to covering provider for the letter R documented in this encounter Plan of Treatment Not on filedocumented as of this encounter Visit Diagnoses Diagnosis Primary insomnia Persistent disorder of initiating or adrianne ntaining sleep documented in this encounter Additional Health Concerns Assessment Noted Time PHQ-9 Depression Total Score: 3 01/08/2021 4:16 PM CDT documented as of this encounter Care Teams Paste Up Copy Camera Operator Relationship Specialty Start Date End Date Leticia Armendariz, PCP - General Internal Medicine 03/17/15 Nahum Lemus MD 09/16/16 [facility] [address] [place] [address] Karuna Ramirez MD Cardiology 09/16/16 MD Erend[place] Karime Castro, Referring Physician Orthopedics 05/13/17 DO [place] [facility] [address] [facility] [address] [place], [place] [phone] Tito Almonte MD MD Orthopedics 05/13/[address] [place], [place] [address] Cristian Cooper MD Assigned Heart and 06/27/20 07/11/21 [address], Vascular Provider [address] [place], [place] [address] Torsten Rodriguez MD Assigned Musculoskeletal 08/24/20 02/19/22 [address] Provider [place], [place] [phone] Annabelle Shields, EDISON Assigned PCP 02/08/21 [address] [place], [place] [phone] documented as of this encounter
--- OUTSIDE RECORDS SUMMARY | 2022-06-25 13:47 | XMS_ITS | Encounter Summary ---
:1965 Author Organization [place] Address [address] [place] [address] Care Team Providers Name Role Phone Leticia Armendariz MD Primary Care Provider Nahum Lemus MD Unavailable Karuna Ramirez MD Unavailable [phone] Karime Castro DO Unavailable Tito Almonte MD Unavailable Leticia Armendariz MD Unavailable Cristian Cooper MD Unavailable Torsten Rodriguez MD Unavailable Reason for Visit Reason Comments Pre-Op Exam Encounter Details Date Type Department Care Team Description 01/29/2021 Office Visit [facility] Evelin Lozano CNP Pre-op exam (Primary Dx); Clinic [place] [address] Hip pain, right; [address] [place] [phone] Social History Tobacco Use Types Packs/Day Years Used Date Smoking Tobacco: Every Day Cigarettes 0.8 25 Smokeless Tobacco: Never Comments: 1 pack daily Alcohol Use Standard Drinks/Week Comments No 0 (1 standard drink = 0.6 oz pure alcoho l) 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 Date Recorded 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 documented as of this encounter Last Filed Vital Signs Vital Sign Reading Time Taken Comments Blood Pressure 134/78 01/29/2021 2:29 PM CDT Pulse 88 01/29/2021 2:29 PM CDT Temperature 36.8 ??C (98.2 ??F) 01/29/2021 2:29 PM CDT Respiratory Rate 16 01/29/2021 2:29 PM CDT Oxygen Saturation 98% 01/29/2021 2:29 PM CDT Inhaled Oxygen Concentration - - Weight 93.4 kg (205 lb 12.8 oz) 01/29/2021 2:29 PM CDT Height - - Body Mass Index 29.53 01/08/2021 2:59 PM CDT documented in this encounter Patient Instructions Patient InstructionsEvelin Lozano CNP - 01/29/2021 2:30 PM CDT Pre-op Exam done and cleared for surgery EKG: Ok Labs are pending (done earlier today) Will treat with antibiotic called Doxycycline 100 mg twice daily x 7 days for swollen testicle suspected Epidymidis (history); if no resolve will need follow up appointment to evaluate further Take only blood pressure medications (Amlodopine and Losartan) with sip of water day of surgery documented in this encounter Progress Notes Evelin Lozano CNP - 01/29/2021 2:30 PM CDT [address] [address] Primary Provider: Leticia Armendariz Pre-op Performing Provider: EVELIN LOZANO PREOPERATIVE EVALUATION: Today's date: 01/29/2021 Feng Perez is a 55 year old male who presents for a preoperative evaluation. Surgical Information: Surgery/Procedure: total right hip replacement Surgery Location: [facility] Surgeon: Dr T J Binta Surgery Date: 02/26/21 Time of Surgery: TBD Where patient plans to recover: At home with family Fax number for surgical facility: [phone] Type of Anesthesia Anticipated: General Assessment & Plan The proposed surgical procedure is considered INTERMEDIATE risk. Pre-op exam - cleared for surgery - EKG 12-lead complete w/read - Clinics: normal Hip pain, right - having right Total Hip Replacement on 02/26/2021 Epididymitis - history with some left testicular swelling so will go ahead and treat: - doxycycline hyclate (VIBRA-TABS) 100 MG tablet; Take 1 tablet (100 mg) by mouth 2 times daily for 7 days Risks and Recommendations: The patient has the following additional risks and recommendations for perioperative complications: - No identified additional risk factors other than previously addressed Medication Instructions: Take only Amlodipine and Losartan with sip of water prior to surgery; HOLD all other medications NO NSAID'S. RECOMMENDATION: APPROVAL GIVEN to proceed with proposed procedure, without further diagnostic evaluation. [id number]} Subjective HPI related to upcoming procedure: complete right hip replacement due to severe osteoarthritis with hip pain scheduled for 02/26/2021 Preop Questions 01/29/2021 1. Have you ever had a heart attack or stroke? No 2. Have you ever had surgery on your heart or blood vessels, such as a stent placement, a coronary artery bypass, or surgery on an artery in your head, neck, heart, or legs? No 3. Do you have chest pain with activity? No 4. Do you have a history of heart failure? No 5. Do you currently have a cold, bronchitis or symptoms of other infection? No 6. Do you have a cough, shortness of breath, or wheezing? No 7. Do you or anyone in your family have previous history of blood clots? No 8. Do you or does anyone in your family have a serious bleeding problem such as prolonged bleeding following surgeries or cuts? No 9. Have you ever had problems with anemia or been told to take iron pills? No 10. Have you had any abnormal blood loss such as black, tarry or bloody stools? No 11. Have you ever had a blood transfusion? No 12. Are you willing to have a blood transfusion if it is medically needed before, during, or after your surgery? Yes 13. Have you or any of your relatives ever had problems with anesthesia? No 14. Do you have sleep apnea, excessive snoring or daytime drowsiness? No 15. Do you have any artifical heart valves or other implanted medical devices like a pacemaker, defibrillator, or continuous glucose monitor? No 16. Do you have artificial joints? YES - metal in neck s/p surgery 17. Are you allergic to latex? No Health Care Directive: Patient does not have a Health Care Directive or Living Will: Patient states has Advance Directive and will bring in a copy to clinic. Preoperative Review of HOSPICE CARE CONSULTANT: HOSPICE CARE CONSULTANT reviewed - no record of controlled substances prescribed. Status of Chronic Conditions: A-FIB - Patient had hx of A-fib. Current treatment regimen includes none; had cardioconversion and no problem since (2013) with no issues for stroke and denies significant symptoms of lightheadedness, palpitations or dyspnea. HYPERLIPIDEMIA - Patient has a long history of significant Hyperlipidemia requiring medication for treatment with recent good control. Patient reports no problems or side effects with the medication. HYPERTENSION - Patient has longstanding history of HTN , currently denies any symptoms referable to elevated blood pressure. Specifically denies chest pain, palpitations, dyspnea, orthopnea, PND or peripheral edema. Blood pressure readings have been in normal range. Current medication regimen is as listed below. Patient denies any side effects of medication. See ROS for other details Review of Systems CONSTITUTIONAL: NEGATIVE for fever, chills, change in weight INTEGUMENTARY/SKIN: NEGATIVE for worrisome rashes, moles or lesions EYES: NEGATIVE for vision changes or irritation ENT/MOUTH: NEGATIVE for ear, mouth and throat problems RESP: NEGATIVE for significant cough or SOB CV: NEGATIVE for chest pain, palpitations or peripheral edema; hx of AF and on medication for HTN GI: NEGATIVE for nausea, abdominal pain, heartburn, or change in bowel habits : NEGATIVE for frequency, dysuria, or hematuria; reports testicular enlargement and discomfort with hx of epididymitis MUSCULOSKELETAL: NEGATIVE for significant arthralgias or myalgia; right hip pain and OA NEURO: NEGATIVE for weakness, dizziness or paresthesias ENDOCRINE: NEGATIVE for temperature intolerance, skin/hair changes HEME: NEGATIVE for bleeding problems PSYCHIATRIC: NEGATIVE for changes in mood or affect; on medication for depression Patient Active Problem List Diagnosis Date Noted ??? High triglycerides Priority: Medium ??? Pulmonary nodules 02/22/2020 Priority: Medium Follow up due 02/2021 ??? Dilated aortic root (H) 01/08/2020 Priority: Medium ??? Primary insomnia 01/03/2018 Priority: Medium ??? Mild single current episode of major depressive disorder (H) 01/03/2018 Priority: Medium ??? Essential hypertension 03/30/2017 Priority: Medium ??? Tremors of nervous system 10/18/2014 Priority: Medium ??? Cervical disc herniation 03/08/2014 Priority: Medium ??? HTN (hypertension) 08/24/2013 Priority: Medium ??? Atrial fibrillation status post cardioversion (H) 08/24/2013 Priority: Medium ??? CARDIOVASCULAR SCREENING; LDL GOAL LESS THAN 130 08/24/2013 Priority: Medium Past Medical History: Diagnosis Date ??? A-fib (H) ??? Arrhythmia afib ??? Arthritis hips, back, hands ??? Atrial fibrillation (H) ??? Complication of anesthesia panics when waking up ??? Gastroesophageal reflux disease ??? Hepatitis 15 yrs ago from bad food ??? High triglycerides ??? Hypertension ??? Other chronic pain back, hip and hands ??? Palpitations Past Surgical History: Procedure Laterality Date ??? COLONOSCOPY N/A 06/25/2015 Procedure: COLONOSCOPY; Surgeon: Haven Sosa MD; Location: [facility] ??? DISCECTOMY LUMBAR POSTERIOR MICROSCOPIC TWO LEVELS Right 04/12/2019 Procedure: 1. Right L4-5 hemilaminectomy, medial facetectomy and microdiscectomy 2. Right L5-S1 hemilaminectomy, medial facetectomy and microdiscectomy 3. Use of intraoperative microscope and C-Arm; Surgeon: Umang Sandoval MD; Location: [facility] ??? FUSION CERVICAL ANTERIOR ONE LEVEL 04/15/2014 Procedure: FUSION CERVICAL ANTERIOR ONE LEVEL; Surgeon: Umang Sandoval MD; Location: [facility] ??? GENITOURINARY SURGERY vasectomy ??? HERNIORRHAPHY INGUINAL Left 07/21/2018 Procedure: open left inguinal hernia repair with mesh; Surgeon: Jono Delarosa MD; Location: [facility] ??? TESTICLE SURGERY ??? VASECTOMY ??? VASOVASOSTOMY Current Outpatient Medications Medication Sig Dispense Refill ??? amLODIPine (NORVASC) 5 MG tablet Take 1 tablet (5 mg) by mouth daily 90 tablet 0 ??? ciclopirox (LOPROX) 0.77 % cream Apply topically 2 times daily 90 g 1 ??? fenofibrate (TRICOR) 48 MG tablet Take 2 tablets (96 mg) by mouth daily 180 tablet 1 ??? losartan (COZAAR) 50 MG tablet Take 1 tablet (50 mg) by mouth daily 90 tablet 0 ??? omeprazole (PRILOSEC) 20 MG CR capsule Take 20 mg by mouth daily ??? sertraline (ZOLOFT) 50 MG tablet TAKE 1 TABLET BY MOUTH EVERY DAY 30 tablet 0 ??? tamsulosin (FLOMAX) 0.4 MG capsule Take 1 capsule (0.4 mg) by mouth daily 90 capsule 0 ??? zolpidem (AMBIEN) 10 MG tablet TAKE 1 TABLET BY MOUTH AT BEDTIME NEEDED 30 tablet 1 No Known Allergies Social History Tobacco Use ??? Smoking status: Current Every Day Smoker Packs/day: 0.75 Years: 25.00 Pack years: 18.75 Types: Cigarettes ??? Smokeless tobacco: Never Used ??? Tobacco comment: 1 pack daily Substance Use Topics ??? Alcohol use: No Alcohol/week: 0.0 standard drinks Family History Problem Relation Age of Onset ??? Arthritis Mother ??? Hypertension Mother ??? Circulatory Father ??? Coronary Artery Disease Father ??? Hypertension Father ??? Hyperlipidemia Father ??? C.A.D. Maternal Grandmother ??? C.A.D. Paternal Grandmother ??? Breast Cancer No family hx of ??? Colon Cancer No family hx of ??? Prostate Cancer No family hx of History Drug Use No Comment: clean for 13 years- cocaine Objective BP 134/78 (BP Location: Left arm, Patient Position: Sitting, Cuff Size: Adult Large) Pulse 88 Temp 98.2 ??F (36.8 ??C) (Oral) Resp 16 Wt 93.4 kg (205 lb 12.8 oz) SpO2 98% BMI 29.53 kg/m?? Physical Exam GENERAL APPEARANCE: alert and no distress EYES: EOMI, PERRL HENT: ear canals and TM's normal NECK: no adenopathy, no asymmetry, masses, or scars and thyroid normal to palpation RESP: lungs clear to auscultation - no rales, rhonchi or wheezes CV: regular rates and rhythm, normal S1 S2, no S3 or S4 and no murmur, click or rub ABDOMEN: soft, nontender, no HSM or masses and bowel sounds normal MS: extremities normal- no gross deformities noted, no evidence of inflammation in joints, FROM in all extremities. SKIN: no suspicious lesions or rashes NEURO: Normal strength and tone, sensory exam grossly normal, mentation intact and speech normal PSYCH: mentation appears normal. and affect normal/bright LYMPHATICS: No cervical adenopathy Recent Labs Lab Test 01/29/21 0918 08/22/20 1526 04/04/19 1543 HGB 16.5 15.3 15.8 PLT 209 236 235 NA -- -- 140 POTASSIUM -- -- 4.2 CR -- -- 1.23 Diagnostics: Labs pending at this time. Results will be reviewed when available. EKG: Normal Sinus Rhythm, normal axis, normal intervals, no acute ST/T changes c/w ischemia, no LVH by voltage criteria, improved from EKG 04/04/2019 Had Stress Echocardiogram 01/04/2020 essentially normal Revised Cardiac Risk Index (RCRI): The patient has the following serious cardiovascular risks for perioperative complications: - No serious cardiac risks = 0 points RCRI Interpretation: 1 point: Class II (low risk - 0.9% complication rate) Signed Electronically by: Evelin Lozano CNP Copy of this evaluation report is provided to requesting physician. documented in this encounter Plan of Treatment Not on filedocumented as of this encounter Procedures Procedure Name Priority Date/Time Associated Diagnosis Comme nts EKG 12-LEAD Routine 01/29/2021 3:09 PM Pre-op exam Results f or this COMPLETE W/READ - CDT procedure are in CLINICS the results section. documented in this encounter Results EKG 12-lead complete w/read - Clinics (01/29/2021 3:09 PM CDT) Narrative This result has an attachment that is no t available. Evelin Lozano CNP ECG ORDERABLES documented in this encounter Visit Diagnoses Diagnosis Pre-op exam - Primary Preoperative examination, unspecified Hip pain, right Pain in joint, pelvic region and thigh Epididymitis Orchitis and epididymitis, unspecified documented in this encounter Additional Health Concerns Assessment Noted Time PHQ-9 Depression Total Score: 3 01/08/2021 4:16 PM CDT documented as of this encounter Care Teams Assurance Specialist Relationship Specialty Start Date End Date Leticia Armendariz, PCP - General Internal Medicine 03/17/15 Nahum Lemus MD 09/16/16 [facility] [address] [facility] [place] [address] Karuna Ramirez MD Cardiology 09/16/16 MD Erendira Karime Castro, Referring Physician Orthopedics 05/13/[address] [facility] [address] [facility] [address] [place], [place] [phone] Tito Almonte MD MD Orthopedics 05/13/[address] [place], [place] [phone] Leticia Armendariz, Assigned PCP 12/30/19 02/07/21 [facility] [address] [place] [address] Cristian Cooper MD Assigned Heart and 06/27/20 07/11/21 [address], Vascular Provider [facility] [address] [place], [place] [address] Torsten Rodriguez MD Assigned Musculoskeletal 08/24/20 02/19/22 [address] [facility] [place] [address] documented as of this encounter
--- OUTSIDE RECORDS SUMMARY | 2022-06-25 13:47 | XMS_ITS | Encounter Summary ---
:1965 Author Organization [place] Address [address] [place] [address] Care Team Providers Name Role Phone Leticia Armendariz MD Primary Care Provider Nahum Lemus MD Unavailable Karuna Ramirez MD Unavailable [phone] Karime Castro DO Unavailable Tito Almonte MD Unavailable Annabelle Shields CNP Unavailable Reason for Visit Reason Onset Date Comments Medication Refill CHANGED CLINICS 02/25/2022 CHANGED CLINICS TO [facility] Encounter Details Date Type Department Care Team Description 02/25/2022 Refill [facility] Annabelle Shields CNP Medication Refill; Clinic [address] CHANGED CLINICS [address] [place] [address] (CHANGED CLINICS TO [facility]) [place] [address] Social History Tobacco Use Types Packs/Day Years Used Date Smoking Tobacco: Every Day Cigarettes 0.8 25 Smokeless Tobacco: Never Comments: 1 pack daily Alcohol Use Standard Drinks/Week Comments No 0 (1 standard drink = 0.6 oz pure alcoho l) 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 Date Recorded 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 Goes to [facility]. documented in this encounter Plan of Treatment Not on filedocumented as of this encounter Visit Diagnoses Diagnosis Elevated triglycerides with high cholest [place] Mixed hyperlipidemia Atrial fibrillation status post cardiove rsion documented in this encounter Additional Health Concerns Assessment Noted Time PHQ-9 Depression Total Score: 3 01/08/2021 4:16 PM CDT documented as of this encounter Care Teams Yarn Mercerizer Operator Relationship Specialty Start Date End Date Leticia Armendariz MD PCP - General Internal Medicine 03/17/15 Nahum Lemus MD 09/16/16 [facility] [address] [facility] [address] [place] [phone] Karuna Ramirez MD MD Cardiology 09/16/16 Karime Castro DO Referring Physician Orthopedics 05/13/17 [facility] [address] [phone] Tito Almonte MD MD Orthopedics 05/13/17 [address] [facility] [address] [place], [place] [phone] Annabelle Shields, EDISON Assigned PCP 02/08/21 [address] [place] [address] documented as of this encounter
--- OUTSIDE RECORDS SUMMARY | 2022-06-25 13:47 | XMS_ITS | Encounter Summary ---
:1965 Author Organization [place] Address [address] [place] [address] Care Team Providers Name Role Phone Leticia Armendariz MD Primary Care Provider Nahum Lemus MD Unavailable Karuna Ramirez MD Unavailable [phone] Karime Castro DO Unavailable Tito Almonte MD Unavailable Cristian Cooper MD Unavailable Torsten Rodriguez MD Unavailable Annabelle Shields CNP Unavailable Reason for Visit Reason Comments Medication Refill Encounter Details Date Type Department Care Team Description 05/17/2021 Refill [facility] Annabelle Shields CNP Medication Refill [place] [address] [place] [address] [place] [address] [facility] [place] [address] [phone] Social History Tobacco Use Types Packs/Day Years Used Date Smoking Tobacco: Every Day Cigarettes 0.8 25 Smokeless Tobacco: Never Comments: 1 pack daily Alcohol Use Standard Drinks/Week Comments No 0 (1 standard drink = 0.6 oz pure alcoho l) 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 Date 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 documented in this encounter Plan of Treatment Not on filedocumented as of this encounter Visit Diagnoses Diagnosis Atrial fibrillation status post cardiove rsion documented in this encounter Additional Health Concerns Assessment Noted Time PHQ-9 Depression Total Score: 3 01/08/2021 4:16 PM CDT documented as of this encounter Care Teams Ore Fielder Relationship Specialty Start Date End Date Leticia Armendariz, PCP - General Internal Medicine 03/17/15 Nahum Lemus MD 09/16/16 [facility] [address] [facility] [address] [place] [phone] Karuna Ramirez MD Cardiology 09/16/16 MD Erendira Karime Castro, Referring Physician Orthopedics 05/13/17 DO [facility] [address] [facility] [address] [place], [place] [phone] Tito Almonte MD MD Orthopedics 05/13/[address] [place], [place] [phone] Cristian Cooper MD Assigned Heart and 06/27/20 07/11/[address], Vascular Provider [facility] [address] [place], [place] [address] Torsten Rodriguez MD Assigned Musculoskeletal 08/24/20 02/19/[address] [place] [address] Annabelle Shields, EDISON Assigned PCP 02/08/21 [address] [place] [address] documented as of this encounter
--- OUTSIDE RECORDS SUMMARY | 2022-06-25 13:47 | XMS_ITS | Encounter Summary ---
:1965 Author Organization [place] Address [address] [place] [address] Care Team Providers Name Role Phone Leticia Armendariz MD Primary Care Provider Nahum Lemus MD Unavailable Karuna Ramirez MD Unavailable Karime Castro DO Unavailable Tito Almonte MD Unavailable Leticia Armendariz MD Unavailable Cristian Cooper MD Unavailable Torsten Rodriguez MD Unavailable Encounter Details Date Type Department Care Team Description 01/08/2021 Travel Social History Tobacco Use Types Packs/Day Years Used Date Smoking Tobacco: Every Day Cigarettes 0.8 25 Smokeless Tobacco: Never Comments: 1 pack daily Alcohol Use Standard Drinks/Week Comments No 0 (1 standard drink = 0.6 oz pure alcoho l) 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 Date Recorded 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 Exposure Response Date Recorded In the [...] documented as of this encounter Care Teams Fisher [employer]ef Net Relationship Specialty Start Date End Date Leticia Armendariz, PCP - General Internal Medicine 03/17/15 Nahum Lemus MD 09/16/16 [facility] [address] [facility] [place] [address] Karuna Ramirez MD Cardiology 09/16/16 MD Erendira Karime Castro, Referring Physician Orthopedics 05/13/17 DO [facility] [address] [facility] [address] [place], [place] [phone] Tito Almonte MD MD Orthopedics 05/13/[address] [place], [place] [phone] Leticia Armendariz, Assigned PCP 12/30/19 02/07/21 [facility] [address] [place] [address] Cristian Cooper MD Assigned Heart and 06/27/20 07/11/21 [address], Vascular Provider [facility] [address] [place], [place] [address] Torsten Rodriguez MD Assigned Musculoskeletal 08/24/20 02/19/22 909 [facility] [place] [address] documented as of this encounter
--- OUTSIDE RECORDS SUMMARY | 2022-06-25 13:47 | XMS_ITS | Encounter Summary ---
:1965 Author Organization [place] Address [address] [place] [address] Care Team Providers Name Role Phone Leticia Armendariz MD Primary Care Provider Nahum Lemus MD Unavailable Karuna Ramirez MD Unavailable [phone] Karime Castro DO Unavailable Tito Almonte MD Unavailable Annabelle Shields CNP Unavailable Reason for Visit Reason Comments Medication Refill Encounter Details Date Type Department Care Team Description 04/23/2022 Refill [facility] Annabelle Shields CNP Medication Refill [address] [place] [address] [facility] [place] [address] [phone] Social History Tobacco Use Types Packs/Day Years Used Date Smoking Tobacco: Every Day Cigarettes 0.8 25 Smokeless Tobacco: Never Comments: 1 pack daily Alcohol Use Standard Drinks/Week Comments No 0 (1 standard drink = 0.6 oz pure alcoho l) 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 Date 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 Miscellaneous Notes Telephone Encounter - Maddie Barnhart RN - 04/26/2022 6:03 PM CDT Amlodipine 5 mg tab Patient of [facility] Patient should contact provider at [facility] documented in this encounter Plan of Treatment Not on filedocumented as of this encounter Visit Diagnoses Diagnosis Atrial fibrillation status post cardiove rsion documented in this encounter Additional Health Concerns Assessment Noted Time PHQ-9 Depression Total Score: 3 01/08/2021 4:16 PM CDT documented as of this encounter Care Teams Brand Protection Manager Relationship Specialty Start Date End Date Leticia Armendariz MD PCP - General Internal Medicine 03/17/15 Nahum Lemus MD 09/16/16 [place] [facility] [address] [facility] [facility] [address] [place] [id number] Karuna Ramirez MD MD Cardiology 09/16/16 Karime Castro DO Referring Physician Orthopedics 05/13/17 [facility] [address] [facility] [address] [place], [place] [id number] Tito Almonte MD MD Orthopedics 05/13/17 [address] [facility] [address] [place], [place] [address] Annabelle Shields, EDISON Assigned PCP 02/08/21 Renny [place], [place] [phone] documented as of this encounter
--- OUTSIDE RECORDS SUMMARY | 2022-06-25 13:47 | XMS_ITS | Encounter Summary ---
:1965 Author Organization [place] Address [address] [place] [address] Care Team Providers Name Role Phone Leticia Armendariz MD Primary Care Provider Nahum Lemus MD Unavailable Karuna Ramirez MD Unavailable [phone] Karime Castro DO Unavailable Tito Almonte MD Unavailable Leticia Armendariz MD Unavailable Cristian Cooper MD Unavailable Torsten Rodriguez MD Unavailable Annabelle Shields CNP Unavailable Reason for Visit Reason Onset Date Comments Refill Request 01/29/2021 sertraline (ZOLOFT) 50 MG tablet wants 90 day supply Encounter Details Date Type Department Care Team Description 01/29/2021 Refill [facility] Leticia Armendariz Refill Request Demarco Bender MD (sertraline (ZOLOFT) [address] alth MG tablet wants 90 day [facility] [address] [place] [address]) [place] [address] [phone] Social History Tobacco Use Types Packs/Day Years Used Date Smoking Tobacco: Every Day Cigarettes 0.8 25 Smokeless Tobacco: Never Comments: 1 pack daily Alcohol Use Standard Drinks/Week Comments No 0 (1 standard drink = 0.6 oz pure alcoho l) 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 Date Recorded 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 COVID-19 Exposure Response Date Recorded In [...] documented as of this encounter Care Teams Paint Roller Covermaker Relationship Specialty Start Date End Date Leticia Armendariz, PCP - General Internal Medicine 03/17/15 Nahum Lemus MD 09/16/16 [place] [facility] [address] [facility] [place] [address] Karuna Ramirez MD Cardiology 09/16/16 MD Erendira Karime Castro, Referring Physician Orthopedics 05/13/17 DO [facility] [address] [facility] [address] [place], [place] [phone] Tito Almonte MD MD Orthopedics 05/13/[address] [place], [place] [phone] Leticia Armendariz, Assigned PCP 12/30/19 02/07/21 [facility] [address] [place], [place] [address] Cristian Cooper MD Assigned Heart and 06/27/20 07/11/21 [address], Vascular Provider [address] [place], [place] [address] Torsten Rodriguez MD Assigned Musculoskeletal 08/24/20 02/19/22 909 [facility] SE Provider [place], [place] [phone] Annabelle Shields CNP Assigned PCP 02/08/21 [address] [place] [place], [place] [address] documented as of this encounter
--- OUTSIDE RECORDS SUMMARY | 2022-06-25 13:47 | XMS_ITS | Encounter Summary ---
:1965 Author Organization [place] Address [address] [place] [address] Care Team Providers Name Role Phone Leticia Armendariz MD Primary Care Provider Nahum Lemus MD Unavailable Karuna Ramirez MD Unavailable [phone] Karime Castro DO Unavailable Tito Almonte MD Unavailable Torsten Rodriguez MD Unavailable Annabelle Shields CNP Unavailable Reason for Visit Reason Comments Medication Refill Encounter Details Date Type Department Care Team Description 01/24/2022 Refill [facility] Annabelle Shields CNP Medication Refill [address] [place] [address] [facility] [place] [address] [phone] Social History Tobacco Use Types Packs/Day Years Used Date Smoking Tobacco: Every Day Cigarettes 0.8 25 Smokeless Tobacco: Never Comments: 1 pack daily Alcohol Use Standard Drinks/Week Comments No 0 (1 standard drink = 0.6 oz pure alcoho l) 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 Date Recorded 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 GAIL Chauhan Telephone Encounter - Janina Pavon RN - 01/25/2022 2:30 PM CDT Medication is being filled for 1 time refill only due to: Patient needs to be seen because it has been more than one year since last visit. Routing to MA/TC [place]. The Pt is due for a visit with PCP Janina Polk RN, BSN documented in this encounter Plan of Treatment Not on filedocumented as of this encounter Visit Diagnoses Diagnosis Elevated triglycerides with high cholest [place] Mixed hyperlipidemia documented in this encounter Additional Health Concerns Assessment Noted Time PHQ-9 Depression Total Score: 3 01/08/2021 4:16 PM CDT documented as of this encounter Care Teams Steel Cutter Relationship Specialty Start Date End Date Leticia Armendariz, PCP - General Internal Medicine 03/17/15 Nahum Lemus MD 09/16/16 [place] [facility] [address] [facility] [place] [address] Karuna Ramirez MD Cardiology 09/16/16 MD Erendira Karime Castro, Referring Physician Orthopedics 05/13/17 DO [facility] [address] [facility] [address] [place] [address] Tito Almonte MD MD Orthopedics 05/13/17 [address] [facility] [address] [place], [place] [address] Torsten Rodriguez MD Assigned Musculoskeletal 08/24/20 02/19/22 [address] [place], [place] [address] Annabelle Shields CNP Assigned PCP 02/08/21 [address] [place], [place] [address] documented as of this encounter
--- OUTSIDE RECORDS SUMMARY | 2022-06-25 13:47 | XMS_ITS | Encounter Summary ---
:1965 Author Organization [place] Address [address] [place] [address] Care Team Providers Name Role Phone Leticia Armendariz MD Primary Care Provider Nahum eLmus MD Unavailable Karuna Ramirez MD Unavailable [phone] Karime Castro DO Unavailable Tito Almonte MD Unavailable Leticia Armendariz MD Unavailable Cristian Cooper MD Unavailable Torsten Rodriguez MD Unavailable Encounter Details Date Type Department Care Team Description 01/29/2021 Orders Only [facility] Scr eening for prostate cancer; [place] [facility] Elevated triglycerides with high cholesterol; [address] Dysuria; [place] [address] Atrial fibrillation status p ost cardioversion [phone] Social History Tobacco Use Types Packs/Day Years Used Date Smoking Tobacco: Every Day Cigarettes 0.8 25 Smokeless Tobacco: Never Comments: 1 pack daily Alcohol Use Standard Drinks/Week Comments No 0 (1 standard drink = 0.6 oz pure alcoho l) 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 Date Recorded 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 documented as of this encounter Plan of Treatment Not on filedocumented as of this encounter Procedures Procedure Name Priority Date/Time Associated Diagnosis Comme nts PROSTATE SPECIFIC Routine 01/29/2021 9:18 Screening for Result s for this ANTIGEN SCREEN AM CDT prostate cancer procedure are in the results section. LIPID REFLEX TO Routine 01/29/2021 9:18 Elevated Results f or this DIRECT LDL PANEL AM CDT triglycerides with proce dure are in high cholesterol the results section. COMPREHENSIVE Routine 01/29/2021 9:18 Atrial fibrillation Resu lts for this METABOLIC PANEL AM CDT status post procedure ar e in cardioversion the results section. CBC WITH PLATELETS Routine 01/29/2021 9:18 Dysuria Result s for this AM CDT procedure are i n the results section. documented in this encounter Results (ABNORMAL) Comprehensive metabolic panel FUTURE anytime (01/29/2021 9:18 AM CDT) athologist Signature Sodium 138 133 - 144 01/29/2021 [place] mmol/L 4:39 PM [facility] Potassium 4.1 3.4 - 5.3 01/29/2021 [place] mmol/L 4:39 PM [facility] Chloride 106 94 - 109 01/29/2021 [place] mmol/L 4:39 PM [facility] Carbon Dioxide 31 20 - 32 01/29/2021 [place] mmol/L 4:48 PM [facility] Anion Gap 1 (L) 3 - 14 01/29/2021 [place] mmol/L 4:48 PM [facility] Glucose 86 70 - 99 01/29/2021 [place] mg/dL 4:48 PM [facility] Comment: Fasting specimen Urea Nitrogen 9 7 - 30 mg/dL 01/29/2021 4:48 PM [facility] Creatinine 1.23 0.66 - 1.25 mg/dL 01/29/2021 4:48 PM [facility] GFR Estimate 65 >60 01/29/2021 4:48 PM [facility] mL/min/{1.73_m2} HOSPITAL Comment: Non GFR Calc Starting 08/22/2018, serum creatinine ba sed estimated GFR (eGFR) will be calculated using the Chronic Kidney Dise ase Epidemiology Collaboration (CKD-EPI) equation. GFR Estimate If 76 >60 mL/min/{1.73_m2} 01/29/2021 4: 48 PM [facility] Comment: GFR Calc Starting 08/22/2018, serum creatinine ba sed estimated GFR (eGFR) will be calculated using the Chronic Kidney Dise [facility] Epidemiology Collaboration (CKD-EPI) equation. Calcium 9.3 8.5 - 10.1 mg/dL 01/29/2021 4:48 PM [facility] Bilirubin Total 0.7 0.2 - 1.3 mg/dL 01/29/2021 4:50 PM [facility] Albumin 4.0 3.4 - 5.0 g/dL 01/29/2021 4:50 PM [facility] Protein Total 7.7 6.8 - 8.8 g/dL 01/29/2021 4:50 PM [facility] Alkaline Phosphatase 61 40 - 150 U/L 01/29/2021 4:50 PM [facility] ALT 25 0 - 70 U/L 01/29/2021 4:50 PM [facility] AST 16 0 - 45 U/L 01/29/2021 4:50 PM [facility] Specimen Anatomical Collection Method Collection Time Receive d Time (Source) Location / / Volume Laterality Blood 01/29/2021 9:18 AM 9:23 CDT AM CDT Annabelle Shields CNP LAB - BLOOD ORDERABLES Performing Organization Address City/State/ZIP Code Phon e Number [place] [address] [place] [address] [facility] [address] [place] [address] [place] [address], [facility] [phone] [place] [address] [place] [address], [facility] CBC with platelets FUTURE anytime (01/29/2021 9:18 AM CDT) athologist Signature WBC 7.8 4.0 - 11.0 01/29/2021 [place] 10e9/L 11:08 AM CDT [facility] RBC Count 5.33 4.4 - 5.9 01/29/2021 [place] 10e12/L 11:08 AM CDT [facility] Hemoglobin 16.5 13.3 - 01/29/2021 [place] 17.7 g/dL 11:08 AM CDT [facility] Hematocrit 49.2 40.0 - 01/29/2021 [place] 53.0 % 11:08 AM CDT [facility] MCV 92 78 - 100 01/29/2021 [place] fl 11:08 AM CDT [facility] MCH 31.0 26.5 - 01/29/[address] [facility] 33.0 pg 11:08 AM CDT [facility] MCHC 33.5 31.5 - 01/29/2021 [place] 36.5 g/dL 11:08 AM CDT [facility] RDW 13.2 10.0 - 01/29/[address] 15.0 % 11:08 AM CDT [facility] Platelet Count 209 150 - 450 01/29/2021 [place] 10e9/L 11:08 AM CDT [facility] Specimen Anatomical Collection Method Collection Time Receive d Time (Source) Location / / Volume Laterality Blood 01/29/2021 9:18 AM 9:23 CDT AM CDT Annabelle Shields CNP LAB - BLOOD ORDERABLES Performing Organization Address City/State/ZIP Code Phon e Number [facility] [address] [place], [place] [address] [address] (ABNORMAL) Lipid panel reflex to direct LDL Fasting (01/29/2021 9:18 AM CDT) P athologist Signature Cholesterol 163 <200 mg/dL 01/29/2021 [place] 4:50 PM CDT [facility] Triglycerides 183 (H) <150 mg/dL 01/29/2021 [place] 4:50 PM CDT [facility] Comment: Borderline high: ??150-199 mg/dl High: ? 200-499 mg/dl Very high: ? >499 mg/dl Fasting specimen HDL Cholesterol 33 (L) >39 mg/dL 01/29/2021 4:51 PM [facility] LDL Cholesterol 93 <100 mg/dL 01/29/2021 4:[address] [facility] Comment: Desirable: <100 mg/dl Non HDL Cholesterol 130 (H) <130 mg/dL 01/29/2021 4:51 PM T [facility] Comment: Above Desirable: ??130-159 mg/dl Borderline high: ??160-189 mg/dl High: ? 190-219 mg/dl Very high: ? >219 mg/dl Specimen Anatomical Collection Method Collection Time Receive d Time (Source) Location / / Volume Laterality Blood 01/29/2021 9:18 AM 9:23 CDT AM CDT Annabelle Shields CNP LAB - BLOOD ORDERABLES Performing Organization Address City/State/ZIP Code Phon e Number M [facility] [address] [place], [place] [address] [facility] [address] [place] [address] [address] [place], [place] [address], [facility] [phone] Prostate spec antigen screen FUTURE anytime (01/29/2021 9:18 AM CDT) athologist Signature PSA 1.89 0 - 4 ug/L 01/30/2021 [place] 8:23 AM [facility] Comment: Assay Method: Chemiluminescence using Siemens [place] analyzer Specimen Anatomical Collection Method Collection Time Receive d Time (Source) Location / / Volume Laterality Blood 01/29/2021 9:18 AM 9:23 CDT AM CDT Annabelle Shields CNP LAB - BLOOD ORDERABLES Performing Organization Address City/State/ZIP Code Phon e Number M [facility] [address] [place] [address] [phone] [facility] [address] [place] [address], [facility] [phone] documented in this encounter Visit Diagnoses Diagnosis Screening for prostate cancer Special screening for malignant neoplasm of prostate Elevated triglycerides with high cholest [place] Mixed hyperlipidemia Dysuria Atrial fibrillation status post cardiove rsion documented in this encounter Additional Health Concerns Assessment Noted Time PHQ-9 Depression Total Score: 3 01/08/2021 4:16 PM CDT documented as of this encounter Care Teams Care Transport Nurse Relationship Specialty Start Date End Date Leticia Armendariz, PCP - General Internal Medicine 03/17/15 Nahum Lemus MD 09/16/16 [place] [facility] [address] [place] [address] Karuna Ramirez MD Cardiology 09/16/16 MD Erendira Karime Castro, Referring Physician Orthopedics 05/13/17 DO [facility] [address] [facility] [address] [place] [address] Tito Almonte MD MD Orthopedics 05/13/[address] [place] [address] Leticia Armendariz, Assigned PCP 12/30/19 02/07/21 [facility] [address] [place], [place] [address] Cristian Cooper MD Assigned Heart and 06/27/20 07/11/21 [address] , Vascular Provider [facility] [address] [place] [address] Torsten Rodriguez MD Assigned Musculoskeletal 08/24/20 02/19/22 9[address] [facility] [place] [address] documented as of this encounter
--- OUTSIDE RECORDS SUMMARY | 2022-06-25 13:47 | XMS_ITS | Encounter Summary ---
:1965 Author Organization [place] Address [address] [place] [address] Care Team Providers Name Role Phone Leticia Armendariz MD Primary Care Provider Nahum Lemus MD Unavailable Karuna Ramirez MD Unavailable [phone] Karime Castro DO Unavailable Tito Almonte MD Unavailable Torsten Rodriguez MD Unavailable Annabelle Shields CNP Unavailable Reason for Visit Reason Comments Medication Refill Encounter Details Date Type Department Care Team Description 01/24/2022 Refill [facility] Maged Aggarwal MD Medication Refill [address] [place] [address] [place] [address] [phone] Social History Tobacco Use Types Packs/Day Years Used Date Smoking Tobacco: Every Day Cigarettes 0.8 25 Smokeless Tobacco: Never Comments: 1 pack daily Alcohol Use Standard Drinks/Week Comments No 0 (1 standard drink = 0.6 oz pure alcoho l) 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 Date Recorded 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 documented as of this encounter Miscellaneous Notes Telephone Encounter - Janina Pavon RN - 01/25/2022 10:34 AM CDT Routing refill request to provider for review/approval because: Drug not on the [facility] refill protocol Janina Pavon RN, BSN documented in this encounter Plan of Treatment Not on filedocumented as of this encounter Visit Diagnoses Diagnosis Primary insomnia Persistent disorder of initiating or adrianne ntaining sleep documented in this encounter Additional Health Concerns Assessment Noted Time PHQ-9 Depression Total Score: 3 01/08/2021 4:16 PM CDT documented as of this encounter Care Teams Registered Occupational Therapist Relationship Specialty Start Date End Date Leticia Armendariz, PCP - General Internal Medicine 03/17/15 Nahum Lemus MD 09/16/16 [place] [facility] [address] [facility] [place] [id number] Karuna Ramirez MD Cardiology 09/16/16 MD Erendira Karime Castro, Referring Physician Orthopedics 05/13/17 DO [facility] [address] [address] Tito Almonte MD MD Orthopedics 05/13/[address] [place], [place] [address] Torsten Rodriguez MD Assigned Musculoskeletal 08/24/20 02/19/22 909 [facility] Provider [place], [place] [phone] Annabelle Shields, EDISON Assigned PCP 02/08/21 [address] [place], [place] [address] documented as of this encounter
--- OUTSIDE RECORDS SUMMARY | 2022-06-25 13:47 | XMS_ITS | Encounter Summary ---
:1965 Author Organization [place] Address [address] [place] [address] Care Team Providers Name Role Phone Leticia Armendariz MD Primary Care Provider Nahum Lemus MD Unavailable Karuna Ramirez MD Unavailable [phone] Karime Castro DO Unavailable Tito Almonte MD Unavailable Torsten Rodriguez MD Unavailable Annabelle Shields CNP Unavailable Reason for Visit Reason Comments Medication Refill Encounter Details Date Type Department Care Team Description 08/06/2021 Refill [facility] Annabelle Shields CNP Medication Refill [address] [place] [address] [facility] [place] [address] [phone] Social History Tobacco Use Types Packs/Day Years Used Date Smoking Tobacco: Every Day Cigarettes 0.8 25 Smokeless Tobacco: Never Comments: 1 pack daily Alcohol Use Standard Drinks/Week Comments No 0 (1 standard drink = 0.6 oz pure alcoho l) 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 Date Recorded 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 ER SETTER documented in this encounter Plan of Treatment Not on filedocumented as of this encounter Visit Diagnoses Diagnosis Elevated triglycerides with high cholest [place] Mixed hyperlipidemia documented in this encounter Additional Health Concerns Assessment Noted Time PHQ-9 Depression Total Score: 3 01/08/2021 4:16 PM CDT documented as of this encounter Care Teams Tight Cooper Relationship Specialty Start Date End Date Leticia Armendariz, PCP - General Internal Medicine 03/17/15 Nahum [place]us MD 09/16/16 [place] [facility] [address] [facility] [address] [place] [phone] Karuna Ramirez MD Cardiology 09/16/16 MD Erendira Karime Castro, Referring Physician Orthopedics 05/13/17 [facility] [address] [facility] [address] [place], [place] [address] Tito Almonte MD MD Orthopedics 05/13/[address] [place], [place] [phone] Torsten Rodriguez MD Assigned Musculoskeletal 08/24/20 02/19/22 909 [facility] Provider [place], [place] [address] Annabelle Shields, EDISON Assigned PCP 02/08/21 [address] [place], [place] [address] documented as of this encounter
--- OUTSIDE RECORDS SUMMARY | 2022-06-25 13:47 | XMS_ITS | Encounter Summary ---
:1965 Author Organization [place] Address [address] [place] [address] Care Team Providers Name Role Phone Leticia Armendariz MD Primary Care Provider Nahum Lemus MD Unavailable Karuna Ramirez MD Unavailable [phone] Karime Castro DO Unavailable Tito Almonte MD Unavailable Annabelle Shields CNP Unavailable Reason for Visit Reason Comments Medication Refill Encounter Details Date Type Department Care Team Description 05/03/2022 Refill [facility] Tommy Fitzgerald, Medication Refill Demarco [address] [place] [address] [place] [address] [place] [address] [phone] Social History Tobacco Use Types Packs/Day Years Used Date Smoking Tobacco: Every Day Cigarettes 0.8 25 Smokeless Tobacco: Never Comments: 1 pack daily Alcohol Use Standard Drinks/Week Comments No 0 (1 standard drink = 0.6 oz pure alcoho l) 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 Date Recorded 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 [facility] [place] [phone] Telephone Encounter - Sascha Fitzgerald MD - 05/05/2022 7:42 AM CDT Per review of his chart, it would appear that he has not been seen in the clinic since January 2021. Telephone Encounter - Natali Hamilton RN - 05/04/2022 2:27 PM CDT Routing refill request to provider for review/approval because: Drug not on the [facility] refill protocol documented in this encounter Plan of Treatment Not on filedocumented as of this encounter Visit Diagnoses Diagnosis Primary insomnia Persistent disorder of initiating or adrianne ntaining sleep documented in this encounter Additional Health Concerns Assessment Noted Time PHQ-9 Depression Total Score: 3 01/08/2021 4:16 PM CDT documented as of this encounter Care Teams Top Printing Press Operator Relationship Specialty Start Date End Date Leticia Armendariz MD PCP - General Internal Medicine 03/17/15 Nahum Lemus MD 09/16/16 [place] [facility] 1185 [facility] [place] [id number] Karuna Ramirez MD MD Cardiology 09/16/16 Karime Castro DO Referring Physician Orthopedics 05/13/17 [facility] [address] [facility] [address] [place] [address] Tito Almonte MD MD Orthopedics 05/13/17 2450 [facility] [address] [place] [address] Annabelle Shields, EDISON Assigned PCP 02/08/21 [address] [place] [address] documented as of this encounter
--- OUTSIDE RECORDS SUMMARY | 2022-06-25 13:47 | XMS_ITS | Encounter Summary ---
:1965 Author Organization [place] Address [address] [place] [address] Care Team Providers Name Role Phone Leticia Armendariz MD Primary Care Provider Nahum Lemus MD Unavailable Karuna Ramirez MD Unavailable [phone] Karime Castro DO Unavailable Tito Almonte MD Unavailable Torsten Rodriguez MD Unavailable Annabelle Shields CNP Unavailable Reason for Visit Reason Comments Medication Refill Encounter Details Date Type Department Care Team Description 02/04/2022 Refill [facility] Annabelle Shields CNP Medication Refill [address] [place] [address] [facility] [place] [address] [phone] Social History Tobacco Use Types Packs/Day Years Used Date Smoking Tobacco: Every Day Cigarettes 0.8 25 Smokeless Tobacco: Never Comments: 1 pack daily Alcohol Use Standard Drinks/Week Comments No 0 (1 standard drink = 0.6 oz pure alcoho l) 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 Date Recorded 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 Armendariz at [facility], please advise pharmacy to forward to Dr. Armendariz at [facility] Telephone Encounter - Cyndee Peters RN - 02/05/2022 3:30 PM CDT Pending Prescriptions: Disp Refills losartan (COZAAR) 50 MG tablet [Pharmacy M*90 tab*2 Sig: TAKE 1 TABLET BY MOUTH EVERY DAY Routing refill request to provider for review/approval because: Patient needs to be seen because it has been more than 1 year since last office visit. Protocol failed. Thea Shields is no longer within the organization. Per the medication refill policy, the refill request is to be sent to the covering provider for review and recommendation. Please advise, thanks. Routed to covering provider(s). documented in this encounter Plan of Treatment Not on filedocumented as of this encounter Visit Diagnoses Diagnosis Atrial fibrillation status post cardiove rsion documented in this encounter Additional Health Concerns Assessment Noted Time PHQ-9 Depression Total Score: 3 01/08/2021 4:16 PM CDT documented as of this encounter Care Teams Reconciliation Manager Relationship Specialty Start Date End Date Leticia Armendariz, PCP - General Internal Medicine 03/17/15 Nahum Lemus MD 09/16/16 [facility] [address] [facility] [facility] [address] [place] [phone] Karuna Ramirez MD Cardiology 09/16/16 MD [place] Karime Castro, Referring Physician Orthopedics 05/13/[address] [facility] [address] [facility] [address] [place] [address] Tito Almonte MD MD Orthopedics 05/13/[address] [place] [address] Torsten Rodriguez MD Assigned Musculoskeletal 08/24/20 02/19/22 [address] [place] [address] Annabelle Shields, EDISON Assigned PCP 02/08/21 [address] [place], [place] [id number] documented as of this encounter
--- OUTSIDE RECORDS SUMMARY | 2022-06-25 13:47 | XMS_ITS | Encounter Summary ---
:1965 Author Organization [facility] Address [address] [place] [address] Care Team Providers Name Role Phone Leticia Armendariz MD Primary Care Provider Nahum Lemus MD Unavailable Karuna Ramirez MD Unavailable [phone] Karime Castro DO Unavailable Tito Almonte MD Unavailable Annabelle Shields CNP Unavailable Reason for Visit Reason Comments Medication Refill Encounter Details Date Type Department Care Team Description 04/01/2022 Refill [facility] Tommy Fitzgerald, Medication Refill [place] [address] [place] [address] [place] [address] [place] [address] [place] [address] [phone] Social History Tobacco Use Types Packs/Day Years Used Date Smoking Tobacco: Every Day Cigarettes 0.8 25 Smokeless Tobacco: Never Comments: 1 pack daily Alcohol Use Standard Drinks/Week Comments No 0 (1 standard drink = 0.6 oz pure alcoho l) 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 Date Recorded 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 documented as of this encounter Miscellaneous Notes Telephone Encounter - Natali Hamilton RN - 04/02/2022 10:02 AM CDT Routing refill request to provider [...] documented as of this encounter Care Teams Payroll Analyst Relationship Specialty Start Date End Date Leticia Armendariz MD PCP - General Internal Medicine 03/17/15 Nahum Lemus MD 09/16/16 [place] [facility] [address] [facility] [place] [phone] Karuna Ramirez MD MD Cardiology 09/16/16 Karime Castro DO Referring Physician Orthopedics 05/13/17 [facility] SP[facility]TS [facility] [address] [facility] [address] [place], [place] [phone] Tito Almonte MD MD Orthopedics 05/13/[address] [place], [place] [phone] Annabelle Shields, DRYWALL PROFESSIONAL Assigned PCP 02/08/21 [address] [place] [place], [place] [id number] documented as of this encounter
--- OUTSIDE RECORDS SUMMARY | 2022-06-25 13:47 | XMS_ITS | Encounter Summary ---
:1965 Author Organization [place] Address [address] [place] [address] Care Team Providers Name Role Phone Leticia Armendariz MD Primary Care Provider Nahum Lemus MD Unavailable Karuna Ramirez MD Unavailable [phone] Karime Castro DO Unavailable Tito Almonte MD Unavailable Cristian Cooper MD Unavailable Torsten Rodriguez MD Unavailable Annabelle Shields CNP Unavailable Reason for Visit Reason Comments Medication Refill Encounter Details Date Type Department Care Team Description 05/08/2021 Refill [facility] Annabelle Shields CNP Medication Refill [place] [address] [address] [place] [address] [facility] [place] [address] [phone] Social History Tobacco Use Types Packs/Day Years Used Date Smoking Tobacco: Every Day Cigarettes 0.8 25 Smokeless Tobacco: Never Comments: 1 pack daily Alcohol Use Standard Drinks/Week Comments No 0 (1 standard drink = 0.6 oz pure alcoho l) 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 Date Recorded 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 documented in this encounter Plan of Treatment Not on filedocumented as of this encounter Visit Diagnoses Diagnosis Atrial fibrillation status post cardiove rsion documented in this encounter Additional Health Concerns Assessment Noted Time PHQ-9 Depression Total Score: 3 01/08/2021 4:16 PM CDT documented as of this encounter Care Teams Technical Sales Representatives Relationship Specialty Start Date End Date Leticia Armendariz, PCP - General Internal Medicine 03/17/15 Nahum Lemus MD 09/16/16 [facility] [address] [facility] [address] [place] [phone] Karuna Ramirez MD Cardiology 09/16/16 MD [place] Karime Castro, Referring Physician Orthopedics 05/13/17 DO [facility] [address] [facility] [address] [place] [address] Tito Almonte MD MD Orthopedics 05/13/[address] [place] [address] Cristian Cooper MD Assigned Heart and 06/27/20 07/11/[address], Vascular Provider [facility] [address] [place], [place] [address] Torsten Rodriguez MD Assigned Musculoskeletal 08/24/20 02/19/[address] [place] [address] Annabelle Shields, HACKSAW INSPECTOR Assigned PCP 02/08/21 [address] [place] [address] documented as of this encounter
--- OUTSIDE RECORDS SUMMARY | 2022-06-25 13:47 | XMS_ITS | Encounter Summary ---
:1965 Author Organization [place] Address [address] [place] [address] Care Team Providers Name Role Phone Leticia Armendariz MD Primary Care Provider Nahum Lemus MD Unavailable Karuna Ramirez MD Unavailable [phone] Karime Castro DO Unavailable Tito Almonte MD Unavailable Cristian Cooper MD Unavailable Torsten Rodriguez MD Unavailable Annabelle Shields CNP Unavailable Reason for Visit Reason Comments Medication Refill Encounter Details Date Type Department Care Team Description 04/21/2021 Refill [facility] Annabelle Shields CNP Medication Refill [place] [address] [address] [place] [address] [facility] [place] [phone] [phone] Social History Tobacco Use Types Packs/Day Years Used Date Smoking Tobacco: Every Day Cigarettes 0.8 25 Smokeless Tobacco: Never Comments: 1 pack daily Alcohol Use Standard Drinks/Week Comments No 0 (1 standard drink = 0.6 oz pure alcoho l) 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 Date Recorded 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 documented in this encounter Plan of Treatment Not on filedocumented as of this encounter Visit Diagnoses Diagnosis Dysuria documented in this encounter Additional Health Concerns Assessment Noted Time PHQ-9 Depression Total Score: 3 01/08/2021 4:16 PM CDT documented as of this encounter Care Teams Staker Surveying Relationship Specialty Start Date End Date Leticia Armendariz, PCP - General Internal Medicine 03/17/15 Nahum Lemus MD 09/16/16 [place] [facility] [address] [facility] [address] [place] [phone] Karuna Ramirez MD Cardiology 09/16/16 MD [place] Karime Castro, Referring Physician Orthopedics 05/13/17 DO [facility] SPORTS [facility] [address] [facility] [address] [place], [place] [address] Tito Almonte MD MD Orthopedics 05/13/17 [address] [place] [address] Cristian Cooper MD Assigned Heart and 06/27/20 07/11/21 [address], Vascular Provider [facility] [address] [place], [place] [address] Torsten Rodriguez MD Assigned Musculoskeletal 08/24/20 02/19/22 909 [facility] [place] [address] Annabelle Shields, EDISON Assigned PCP 02/08/21 [address] [place] [address] documented as of this encounter
--- OUTSIDE RECORDS SUMMARY | 2022-06-25 13:47 | XMS_ITS | Encounter Summary ---
:1965 Author Organization [place] Address [address] [place] [address] Care Team Providers Name Role Phone Leticia Armendariz MD Primary Care Provider Nahum Lemus MD Unavailable Karuna Ramirez MD Unavailable [phone] Karime Castro DO Unavailable Tito Almonte MD Unavailable Torsten Rodriguez MD Unavailable Annabelle Shields CNP Unavailable Reason for Visit Reason Comments Medication Refill Encounter Details Date Type Department Care Team Description 09/29/2021 Refill [facility] Maged Aggarwal MD Medication Refill [address] [place] [address] [facility] [place] [address] [phone] Social History Tobacco Use Types Packs/Day Years Used Date Smoking Tobacco: Every Day Cigarettes 0.8 25 Smokeless Tobacco: Never Comments: 1 pack daily Alcohol Use Standard Drinks/Week Comments No 0 (1 standard drink = 0.6 oz pure alcoho l) 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 Date Recorded 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 encounter Miscellaneous Notes Telephone Encounter - Natali Hamilton RN - 09/29/2021 1:40 PM CST Routing refill request to provider for review/approval because: Drug not on the [facility] refill protocol TRUCK DRIVER documented in this encounter Plan of Treatment Not on filedocumented as of this encounter Visit Diagnoses Diagnosis Primary insomnia Persistent disorder of initiating or adrianne ntaining sleep documented in this encounter Additional Health Concerns Assessment Noted Time PHQ-9 Depression Total Score: 3 01/08/2021 4:16 PM CDT documented as of this encounter Care Teams Enamel Dipper Relationship Specialty Start Date End Date Leticia Armendariz, PCP - General Internal Medicine 03/17/15 Nahum Lemus MD 09/16/16 [place] [facility] [address] [facility] [address] [place] [phone] Karuna Ramirez MD Cardiology 09/16/16 MD [place] Karime Castro, Referring Physician Orthopedics 05/13/17 DO [facility] [address] [address] Tito Almonte MD MD Orthopedics 05/13/[address] [place], [place] [address] Torsten Rodriguez MD Assigned Musculoskeletal 08/24/20 02/19/22 9[address] [facility] Provider [place], [place] [phone] Annabelle Shields, EDISON Assigned PCP 02/08/21 [address] [place], [place] [address] documented as of this encounter
--- OUTSIDE RECORDS SUMMARY | 2022-06-25 13:48 | XMS_ITS | Encounter Summary ---
:1965 Author Organization [place] Address [address] [place] [address] Care Team Providers Name Role Phone Leticia Armendariz MD Primary Care Provider Nahum Lemus MD Unavailable Karuna Ramirez MD Unavailable [phone] Karime Castro DO Unavailable Tito Almonte MD Unavailable Leticia Armendariz MD Unavailable Cristian Cooper MD Unavailable Encounter Details Date Type Department Care Team Description 08/19/2020 Travel Social History Tobacco Use Types Packs/Day Years Used Date Smoking Tobacco: Every Day Cigarettes 0.8 25 Smokeless Tobacco: Never Comments: 1 pack daily Alcohol Use Standard Drinks/Week Comments No 0 (1 standard drink = 0.6 oz pure alcoho l) 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 Date Recorded 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 documented as of this encounter Plan of Treatment Not on filedocumented as of this encounter Visit Diagnoses Not on filedocumented in this encounter Additional Health Concerns Assessment Noted Time PHQ-9 Depression Total Score: 19 02/19/2020 1:05 PM CD T documented as of this encounter Care Teams Rectifying Operator Relationship Specialty Start Date End Date Leticia Armendariz MD PCP - General Internal Medicine 03/17/15 Nahum Lemus MD 09/16/16 [place] [facility] [address] [facility] [address] [place], [place] [phone] Karuna Ramirez MD Cardiology 09/16/16 MD [place] Karime Castro DO Referring Physician Orthopedics 05/13/17 [facility] [address] [facility] [address] [place], [place] [phone] Tito Almonte MD MD Orthopedics 05/13/[address] [place], [place] [phone] Leticia Armendariz MD Assigned PCP 12/30/19 02/07/21 [facility] [address] [place], [place] [address] Cristian Cooper MD Assigned Heart and 06/27/20 07/11/21 [address], [facility] Vascular Provider [address] [place], [place] [address] documented as of this encounter
--- OUTSIDE RECORDS SUMMARY | 2022-06-25 13:48 | XMS_ITS | Encounter Summary ---
:1965 Author Organization [place] Address [address] [place] [address] Care Team Providers Name Role Phone Leticia Armendariz MD Primary Care Provider Nahum Lemus MD Unavailable Karuna Ramirez MD Unavailable [phone] Karime Castro DO Unavailable Tito Almonte MD Unavailable Leticia Armendariz MD Unavailable Reason for Visit Reason Comments Medication Refill Encounter Details Date Type Department Care Team Description 02/10/2020 Refill [facility] Leticia Armendariz, Medication Refill [place] MD [address] [place] [address] [address] [place] [address] [place], [place] [address] (Wo rk) Social History Tobacco Use Types Packs/Day Years Used Date Smoking Tobacco: Every Day Cigarettes 0.8 25 Smokeless Tobacco: Never Comments: 1 pack daily Alcohol Use Standard Drinks/Week Comments No 0 (1 standard drink = 0.6 oz pure alcoho l) 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 Date Recorded 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 documented as of this encounter Miscellaneous Notes Telephone Encounter - Macy Murdock, [facility] - 02/12/2020 7:46 AM CDT Patient on fluticasone-salmeterol in [place]. Prescription approved per [facility] Refill Protocol. Electronically signed by [place], Macycarito Mercer [facility] at 02/12/2020 7:46 AM CDT documented in this encounter Plan of Treatment Not on filedocumented as of this encounter Visit Diagnoses Diagnosis Shortness of breath documented in this encounter Additional Health Concerns Assessment Noted Time PHQ-9 Depression Total Score: 0 12/20/2019 11:27 AM CD T documented as of this encounter Care Teams Acid Filler Relationship Specialty Start Date End Date Leticia Armendariz MD PCP - General Internal Medicine 03/17/15 Nahum Lemus MD 09/16/16 [place] [facility] [address] [facility] [address] [place] [phone] Karuna Ramirez MD MD Cardiology 09/16/16 Karime Castro DO Referring Physician Orthopedics 05/13/17 [facility] SP[facility]TS MED [address] [facility] [address] [place], [place] [phone] Tito Almonte MD MD Orthopedics 05/13/[address] [place], [place] [address] Leticia Armendariz MD Assigned PCP 12/30/19 02/07/21 [place] [address] [address], [place] [address] documented as of this encounter
--- OUTSIDE RECORDS SUMMARY | 2022-06-25 13:48 | XMS_ITS | Encounter Summary ---
:1965 Author Organization [place] Address [address] [place] [address] Care Team Providers Name Role Phone Leticia Armendariz MD Primary Care Provider Nahum Lemus MD Unavailable Karuna Ramirez MD Unavailable [phone] Karime Castro DO Unavailable Tito Almonte MD Unavailable Leticia Armendariz MD Unavailable Cristian Cooper MD Unavailable Encounter Details Date Type Department Care Team Description 08/22/2020 Travel Social History Tobacco Use Types Packs/Day Years Used Date Smoking Tobacco: Every Day Cigarettes 0.8 25 Smokeless Tobacco: Never Comments: 1 pack daily Alcohol Use Standard Drinks/Week Comments No 0 (1 standard drink = 0.6 oz pure alcoho l) 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 Date Recorded 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 documented as of this encounter Plan of Treatment Not on filedocumented as of this encounter Visit Diagnoses Not on filedocumented in this encounter Additional Health Concerns Assessment Noted Time PHQ-9 Depression Total Score: 19 02/19/2020 1:05 PM CD T documented as of this encounter Care Teams Steam Setter Relationship Specialty Start Date End Date Leticia Armendariz MD PCP - General Internal Medicine 03/17/15 Nahum Lemus MD 09/16/16 [place] [facility] [address] [facility] [address] [place], [place] [phone] Karuna Ramirez MD Cardiology 09/16/16 MD [place] Karime Castro DO Referring Physician Orthopedics 05/13/17 [facility] MED [address] [facility] [address] [place], [place] [phone] Tito Almonte MD MD Orthopedics 05/13/[address] [place], [place] [phone] Leticia Armendariz MD Assigned PCP 12/30/19 02/07/21 [facility] [address] [place], [place] [address] Cristian Cooper MD Assigned Heart and 06/27/20 07/11/21 [address], [facility] Vascular Provider [address] [place], [place] [address] documented as of this encounter
--- OUTSIDE RECORDS SUMMARY | 2022-06-25 13:48 | XMS_ITS | Encounter Summary ---
:1965 Author Organization [place] Address [address] [place] [address] Care Team Providers Name Role Phone Leticia Armendariz MD Primary Care Provider Nahum Lemus MD Unavailable Karuna Ramirez MD Unavailable Karime Castro DO Unavailable Tito Almonte MD Unavailable Leticia Armendariz MD Unavailable Encounter Details Date Type Department Care Team Description 02/06/2020 Telephone [facility] Sa manav Asher RN [facility] [address] [place] [address] Social History Tobacco Use Types Packs/Day Years Used Date Smoking Tobacco: Every Day Cigarettes 0.8 25 Smokeless Tobacco: Never Comments: 1 pack daily Alcohol Use Standard Drinks/Week Comments No 0 (1 standard drink = 0.6 oz pure alcoho l) 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 Date Recorded Male 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 documented as of this encounter Miscellaneous Notes Telephone Encounter - Janae Asher RN - 02/06/2020 11:49 AM CDT Notes recorded by Janae Asher RN on 02/06/2020 at 8:43 AM CDT Last OV W/Dr. Cooper 01/08/2020, for non-exertional chest discomfort in pt with Hx PAF. Pt to have coronary CTA and 14 day ziopatch for further eval. CTA complete. Ziopatch ordered for 03/10/2020 placement. Follow-up ordered / Scheduled for 05/2020. Routing to Dr. Cooper for review and recommendations. Dana Asher RN, BSN. ----- Message from Cristian Cooper MD sent at 02/06/2020 9:04 AM CDT ----- Results reviewed, very favorable coronary CTA results with no blockages detected, and no coronary artery calcium. Mildly dilated ascending aorta There is mild dilatation aortic root measuring 38.4 mm, but this is only borderline above normal limits, should get a follow up ultrasound in about a year orso, and then if it's stable, it can be followed every 3-5 years with a repeat ultrasound. Overall very favorable results. Call placed to pt to review results. Pt verbalized understanding of all results. Incidental findingsfound on scan to be forwarded to PMD per Pt's request. All pt's questions answered to satisfaction. Dana Asher RN, BSN. 02/07/20 12:59 PM documented in this encounter Plan of Treatment Not on filedocumented as of this encounter Visit Diagnoses Not on filedocumented in this encounter Additional Health Concerns Assessment Noted Time PHQ-9 Depression Total Score: 0 12/20/2019 11:27 AM CD T documented as of this encounter Care Teams Block Cutter Relationship Specialty Start Date End Date Leticia Armendariz MD PCP - General Internal Medicine 03/17/15 Nahum Lemus MD 09/16/16 [place] [facility] [address] [facility] [place] [address] Karuna Ramirez MD MD Cardiology 09/16/16 Karime Castro DO Referring Physician Orthopedics 05/13/17 [facility] SP[facility]TS MED [address] [facility] [address] [place] [address] Tito Almonte MD MD Orthopedics 05/13/17 [address] [facility] [address] [place] [address] Leticia Armendariz MD Assigned PCP 12/30/19 02/07/21 [facility] [address] [place], [place] [address] documented as of this encounter
--- OUTSIDE RECORDS SUMMARY | 2022-06-25 13:48 | XMS_ITS | Encounter Summary ---
:1965 Author Organization [facility] Address [address] [place] [address] Care Team Providers Name Role Phone Leticia Armendariz MD Primary Care Provider Nahum Lemus MD Unavailable Karuna Ramirez MD Unavailable [phone] Karime Castro DO Unavailable Tito Almonte MD Unavailable Leticia Armendariz MD Unavailable Reason for Visit Reason Comments Medication Refill Encounter Details Date Type Department Care Team Description 02/22/2020 Refill [facility] Leticia Armendariz, Medication Refill [place] MD [address] [place] [address] [place] [address] [place], [place] [address] (Wo rk) Social History Tobacco Use Types Packs/Day Years Used Date Smoking Tobacco: Every Day Cigarettes 0.8 25 Smokeless Tobacco: Never Comments: 1 pack daily Alcohol Use Standard Drinks/Week Comments No 0 (1 standard drink = 0.6 oz pure alcoho l) 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 Date Recorded 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 documented as of this encounter Miscellaneous Notes Telephone Encounter - Akila Low RN - 02/25/2020 5:09 PM CDT Pending Prescriptions: Disp Refills losartan (COZAAR) 50 MG tablet [Pharmacy *90 tab*2 Sig: TAKE 1 TABLET BY MOUTH EVERY DAY Prescription approved per [facility] Refill Protocol. documented in this encounter Plan of Treatment Not on filedocumented as of this encounter Visit Diagnoses Diagnosis Atrial fibrillation status post cardiove rsion documented in this encounter Additional Health Concerns Assessment Noted Time PHQ-9 Depression Total Score: 02/19/2020 1:05 PM CD T documented as of this encounter Care Teams Base Brander Relationship Specialty Start Date End Date Lteicia Armendariz MD PCP - General Internal Medicine 03/17/15 Nahum Lemus MD 09/16/16 [facility] [address] [address] [place] [id number] Karuna Ramirez MD MD Cardiology 09/16/16 Karime Castro DO Referring Physician Orthopedics 05/13/17 [facility] [address] [facility] [address] [place], [place] [phone] Tito Almonte MD MD Orthopedics 05/13/[address] [place], [place] [phone] Leticia Armendariz MD Assigned PCP 12/30/19 02/07/21 [facility] [address], [place] [address] documented as of this encounter
--- OUTSIDE RECORDS SUMMARY | 2022-06-25 13:48 | XMS_ITS | Encounter Summary ---
:1965 Author Organization [facility] Address [address] [place] [address] Care Team Providers Name Role Phone Leticia Armendariz MD Primary Care Provider Nahum Lemus MD Unavailable Karuna Ramirez MD Unavailable [phone] Karime Castro DO Unavailable Tito Almonte MD Unavailable Leticia Armendariz MD Unavailable Cristian Cooper MD Unavailable Torsten Rodriguez MD Unavailable Reason for Visit Reason Comments Medication Refill Encounter Details Date Type Department Care Team Description [facility], Medication Refill [place] MD [address] [place] [address] [address] [phone] [place], [place] [address] (Wo rk) Social History Tobacco Use Types Packs/Day Years Used Date Smoking Tobacco: Every Day Cigarettes 0.8 25 Smokeless Tobacco: Never Comments: 1 pack daily Alcohol Use Standard Drinks/Week Comments No 0 (1 standard drink = 0.6 oz pure alcoho l) 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 Date Recorded 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 ressive disorder (H) LUIS FELIPE (generalized anxiety disorder) Generalized anxiety disorder documented in this encounter Additional Health Concerns Assessment Noted Time PHQ-9 Depression Total Score: 19 02/19/2020 1:05 PM CD T documented as of this encounter Care Teams Logistics Center Manager Relationship Specialty Start Date End Date Leticia Armendariz, PCP - General Internal Medicine 03/17/15 Nahum Lemus MD 09/16/16 [place] [facility] [address] [address] [place] [phone] Karuna Ramirez MD Cardiology 09/16/16 MD [place] Karime Castro, Referring Physician Orthopedics 05/13/17 DO [facility] [place] [facility] [address] [facility] [address] [place] [address] Tito Almonte MD MD Orthopedics 05/13/17 [address] [facility] [address] [place] [address] Leticia Armendariz, Assigned PCP 12/30/19 02/07/21 [place] [address] [place] [phone] Cristian Cooper MD Assigned Heart and 06/27/20 07/11/21 [address], Vascular Provider [facility] [address] [place] [address] Torsten Rodriguez MD Assigned Musculoskeletal 08/24/20 02/19/22 [address] [facility] [place] [address] documented as of this encounter
--- OUTSIDE RECORDS SUMMARY | 2022-06-25 13:48 | XMS_ITS | Encounter Summary ---
:1965 Author Organization [facility] Address [address] [place] [address] Care Team Providers Name Role Phone Leticia Armendariz MD Primary Care Provider Nahum Lemus MD Unavailable Karuna Ramirez MD Unavailable [phone] Karime Castro DO Unavailable Tito Almonte MD Unavailable Leticia Armendariz MD Unavailable Reason for Visit Reason Comments Medication Refill Encounter Details Date Type Department Care Team Description 03/09/2020 Refill [facility] Leticia Armendariz, Medication Refill [place] MD [address] [place] [address] [address] [place] [address] [place], [place] [address] (Wo rk) Social History Tobacco Use Types Packs/Day Years Used Date Smoking Tobacco: Every Day Cigarettes 0.8 25 Smokeless Tobacco: Never Comments: 1 pack daily Alcohol Use Standard Drinks/Week Comments No 0 (1 standard drink = 0.6 oz pure alcoho l) 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 Date Recorded 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 documented as of this encounter Miscellaneous Notes Telephone Encounter - Akila Low, RN - 03/10/2020 4:13 PM CDT Pending Prescriptions: Disp Refills amLODIPine (NORVASC) 5 MG tablet [Pharmacy*90 tab*2 Sig: TAKE 1 TABLET BY MOUTH EVERY DAY Routing refill request to provider for review/approval because: Labs will this month, should patient have labs drawn? documented in this encounter Plan of Treatment Not on filedocumented as of this encounter Visit Diagnoses Diagnosis Atrial fibrillation status post cardiove rsion documented in this encounter Additional Health Concerns Assessment Noted Time PHQ-9 Depression Total Score: 02/19/2020 1:05 PM CD T documented as of this encounter Care Teams President And Ceo Relationship Specialty Start Date End Date Leticia Armendariz MD PCP - General Internal Medicine 03/17/15 Nahum Lemus MD 09/16/16 [place] [facility] [address] [facility] [place] [phone] Karuna Ramirez MD MD Cardiology 09/16/16 Karime Castro DO Referring Physician Orthopedics 05/13/17 [facility] SP[facility] [address] [facility] [address] [place], [place] [phone] Tito Almonte MD MD Orthopedics 05/13/[address] [place], [place] [phone] Leticia Armendariz MD Assigned PCP 12/30/19 02/07/21 [facility] [address] [place], [place] [address] documented as of this encounter
--- OUTSIDE RECORDS SUMMARY | 2022-06-25 13:48 | XMS_ITS | Encounter Summary ---
:1965 Author Organization [facility] Address [address] [place] [address] Care Team Providers Name Role Phone Leticia Armendariz MD Primary Care Provider Nahum Lemus MD Unavailable Karuna Ramirez MD Unavailable [phone] Karime Castro DO Unavailable Tito Almonte MD Unavailable Leticia Armendariz MD Unavailable Cristian Cooper MD Unavailable Torsten Rodriguez MD Unavailable Reason for Visit Reason Comments Recheck Medication Encounter Details Date Type Department Care Team Description 01/08/2021 Office Visit [facility] Annabelle Shields CNP Screening for prostate cancer (Primary D x); [facility] [address] Atrial fibrillation status p ost cardioversion; [address] Elevated triglycerides with high cholest [place]; [place], [place] Dysuria [place], [place] [phone] Social History Tobacco Use Types Packs/Day Years Used Date Smoking Tobacco: Every Day Cigarettes 0.8 25 Smokeless Tobacco: Never Tobacco Cessation: Counseling Given: No Comments: 1 pack daily Alcohol Use Standard Drinks/Week Comments No 0 (1 standard drink = 0.6 oz pure alcoho l) 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 Date Recorded 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 documented as of this encounter Last Filed Vital Signs Vital Sign Reading Time Taken Comments Blood Pressure 131/81 01/08/2021 2:59 PM CDT Pulse 96 01/08/2021 2:59 PM CDT Temperature 36.7 ??C (98 ??F) 01/08/2021 2:59 PM CDT Respiratory Rate 18 01/08/2021 2:59 PM CDT Oxygen Saturation 100% 01/08/2021 2:59 PM CDT Inhaled Oxygen Concentration - - Weight 95.3 kg (210 lb 1.6 oz) 01/08/2021 2:59 PM CDT Height 177.8 cm (5' 10) 01/08/2021 2:59 PM CDT Body Mass Index 30.15 01/08/2021 2:59 PM CDT documented in this encounter Patient Instructions Patient InstructionsAnnabelle Shields CNP - 01/08/2021 3:10 PM CDT Medication refills on Amlodipine, Trichor, Losartan, and Tamulosin Go to [address] for scheduling fasting labs Will be scheduling pre-op for right hip total hip replacement documented in this encounter Progress Notes Annabelle Shields CNP - 01/08/2021 3:10 PM CDT Assessment & Plan Atrial fibrillation status post cardioversion - stable with Rx refill with lab: - amLODIPine (NORVASC) 5 MG tablet; Take 1 tablet (5 mg) by mouth daily - losartan (COZAAR) 50 MG tablet; Take 1 tablet (50 mg) by mouth daily - Comprehensive metabolic panel FUTURE anytime; Future Elevated triglycerides with high cholesterol - Rx refill with lab order: - fenofibrate (TRICOR) 48 MG tablet; Take 2 tablets (96 mg) by mouth daily - Lipid panel reflex to direct LDL Fasting; Future Dysuria - intermittent but stable with Rx refill: - tamsulosin (FLOMAX) 0.4 MG capsule; Take 1 capsule (0.4 mg) by mouth daily - CBC with platelets FUTURE anytime; Future Screening for prostate cancer - Prostate spec antigen screen FUTURE anytime; Future [id number]} Tobacco Cessation: reports that he has been smoking cigarettes. He has a 18.75 pack-year smoking history. He has neverused smokeless tobacco. Tobacco Cessation Action Plan: working on quitting by self BMI: Estimated body mass index is 30.15 kg/m?? as calculated from the following: Height as of this encounter: 1.778 m (5' 10). Weight as of this encounter: 95.3 kg (210 lb 1.6 oz). Patient Instructions Medication refills on Amlodipine, Trichor, Losartan, and Tamulosin Go to [address] for scheduling fasting labs Will be scheduling pre-op for right hip total hip replacement Return in about 1 year (around 01/08/2022) for Routine preventive, with me, in person. Annabelle Shields CNP [facility] Shelley Toney is a 55 year old who presents for the following health issues accompanied by himself: HPI Hyperlipidemia Follow-Up ?? Are you regularly taking any medication or supplement to lower your cholesterol? Yes- Fenofibrate ?? Are you having muscle aches or other side effects that you think could be caused by your cholesterol lowering medication? No Hypertension Follow-up ?? Do you check your blood pressure regularly outside of the clinic? Yes ?? Are you following a low salt diet? Yes ?? Are your blood pressures ever more than 140 on the top number (systolic) OR more than 90 on the bottom number (diastolic), for example 140/90? Yes Former patient of [facility]. He wants to establish care with you and have you manage his medications. ?? How many servings of fruits and vegetables do you eat daily? 0-1 ?? On average, how many sweetened beverages do you drink each day (Examples: soda, juice, sweet tea,etc. Do NOT count diet or artificially sweetened beverages)? 4 ?? How many days per week do you exercise enough to make your heart beat faster? 4 ?? How many minutes a day do you exercise enough to make your heart beat faster? 30 - 60 ?? How many days per week do you miss taking your medication? 0 See above. Needs Rx refills for Amlodopione, Losartan, and Trichor. Last visit with PCP Dr. Armendariz was 02/22/2020 with last labs 03/2019 (BMP, CBC) and 03/2018 (Lipid, TSH, CBC, and PSA). Today plans to establish with me. Briefly reviewed PMH, SH, FH, medications and labs. Overall doing ok. Voiced no fever or cough. No shortness of breathe or chest pain. No stomach issues. Has urinary hesitancy for years. Getting scheduled for right Total Hip Replacement in February. Review of Systems Constitutional, HEENT, cardiovascular, pulmonary, GI, , musculoskeletal, neuro, skin, endocrine and psych systems are negative, except as otherwise noted. Objective BP 131/81 (BP Location: Left arm, Patient Position: Sitting, Cuff Size: Adult Large) Pulse 96 Temp 98 ??F (36.7 ??C) (Oral) Resp 18 Ht 1.778 m (5' 10) Wt 95.3 kg (210 lb 1.6 oz) SpO2 100% BMI 30.15 kg/m?? Body mass index is 30.15 kg/m??. Physical Exam GENERAL: alert and no distress RESP: lungs clear to auscultation - no rales, rhonchi or wheezes CV: regular rate and rhythm, normal S1 S2, no S3 or S4, no murmur, click or rub, no peripheral edemaand peripheral pulses strong ABDOMEN: soft, nontender, no hepatosplenomegaly, no masses and bowel sounds normal MS: no gross musculoskeletal defects noted, no edema SKIN: no suspicious lesions or rashes documented in this encounter Plan of Treatment Not on filedocumented as of this encounter Results Prostate spec antigen screen FUTURE anytime (01/29/2021 9:18 AM CDT) athologist Signature PSA 1.89 0 - 4 ug/L 01/30/2021 [place] 8:23 AM CDT [facility] Comment: Assay Method: Chemiluminescence using Siemens [place] analyzer Specimen Anatomical Collection Method Collection Time Receive d Time (Source) Location / / Volume Laterality Blood 01/29/2021 9:18 AM 9:23 CDT AM CDT Annabelle Shields CNP LAB - BLOOD ORDERABLES Performing Organization Address City/State/ZIP Code Phon e Number M [facility] [address] [place] [address] [phone] [facility] [address] [place] [address], [place] [phone] (ABNORMAL) Lipid panel reflex to direct LDL Fasting (01/29/2021 9:18 AM CDT) athologist Signature Cholesterol 163 <200 mg/dL 01/29/2021 [place] 4:50 PM [facility] Triglycerides 183 (H) <150 mg/dL 01/29/2021 [place] 4:50 PM [facility] Comment: Borderline high: ??150-199 mg/dl High: ? 200-499 mg/dl Very high: ? >499 mg/dl Fasting specimen HDL Cholesterol 33 (L) >39 mg/dL 01/29/2021 4:51 PM [facility] LDL Cholesterol 93 <100 mg/dL 01/29/2021 4:51 PM [facility] Comment: Desirable: <100 mg/dl Non HDL Cholesterol 130 (H) <130 mg/dL 01/29/2021 4:51 PM [facility] Comment: Above Desirable: ??130-159 mg/dl Borderline high: ??160-189 mg/dl High: ? 190-219 mg/dl Very high: ? >219 mg/dl Specimen Anatomical Collection Method Collection Time Receive d Time (Source) Location / / Volume Laterality Blood 01/29/2021 9:18 AM 9:23 CDT AM CDT Annabelle Shields CNP LAB - BLOOD ORDERABLES Performing Organization Address City/State/ZIP Code Phon e Number M [facility] [address] [place], [place] [address] [facility] [address] [place] [address], [facility] [phone] [facility] [address] [place], [place] [address], [facility] [phone] CBC with platelets FUTURE anytime (01/29/2021 9:18 AM CDT) athologist Signature WBC 7.8 4.0 - 11.0 01/29/2021 [place] 10e9/L 11:08 AM CDT [facility] RBC Count 5.33 4.4 - 5.9 01/29/2021 [place] 10e12/L 11:08 AM CDT [facility] Hemoglobin 16.5 13.3 - 01/29/2021 [place] 17.7 g/dL 11:08 AM CDT [facility] Hematocrit 49.2 40.0 - 01/29/2021 [place] 53.0 % 11:08 AM CDT [facility] MCV 92 78 - 100 01/29/2021 [place] fl 11:08 AM CDT [facility] MCH 31.0 26.5 - 01/29/2021 [place] 33.0 pg 11:08 AM CDT [facility] MCHC 33.5 31.5 - 01/29/2021 [place] 36.5 g/dL 11:08 AM CDT [facility] RDW 13.2 10.0 - 01/29/2021 [place] 15.0 % 11:08 AM CDT [facility] Platelet Count 209 150 - 450 01/29/2021 [place] 10e9/L 11:08 AM CDT [facility] Specimen Anatomical Collection Method Collection Time Receive d Time (Source) Location / / Volume Laterality Blood 01/29/2021 9:18 AM 9:23 CDT AM CDT Annabelle Shields CNP LAB - BLOOD ORDERABLES Performing Organization Address City/State/ZIP Code Phon e Number [facility] [address] [place], [place] [address] [address] (ABNORMAL) Comprehensive metabolic panel FUTURE anytime (01/29/2021 9:18 AM CDT) athologist Signature Sodium 138 133 - 144 01/29/2021 [facility] mmol/L 4:39 PM [facility] Potassium 4.1 3.4 - 5.3 01/29/2021 [facility] mmol/L 4:39 PM [facility] Chloride 106 94 - 109 01/29/2021 [facility] mmol/L 4:39 PM [facility] Carbon Dioxide 31 20 - 32 01/29/2021 [facility] mmol/L 4:48 PM [facility] Anion Gap 1 (L) 3 - 14 01/29/2021 [facility] mmol/L 4:48 PM [facility] Glucose 86 70 - 99 01/29/2021 [facility] mg/dL 4:48 PM [facility] Comment: Fasting specimen Urea Nitrogen 9 7 - 30 mg/dL 01/29/2021 4:48 PM [facility] Creatinine 1.23 0.66 - 1.25 mg/dL 01/29/2021 4:48 PM [facility] GFR Estimate 65 >60 01/29/2021 4:48 PM [facility] mL/min/{1.73_m2} [facility] Comment: Non GFR Calc Starting 08/22/2018, serum creatinine ba sed estimated GFR (eGFR) will be calculated using the Chronic Kidney Dise [facility] Epidemiology Collaboration (CKD-EPI) equation. GFR Estimate If 76 >60 mL/min/{1.73_m2} 01/29/2021 4: 48 PM [facility] Comment: GFR Calc Starting 08/22/2018, serum creatinine ba sed estimated GFR (eGFR) will be calculated using the Chronic Kidney Dise [facility] Epidemiology Collaboration (CKD-EPI) equation. Calcium 9.3 8.5 - 10.1 mg/dL 01/29/2021 4:48 PM [facility] Bilirubin Total 0.7 0.2 - 1.3 mg/dL 01/29/2021 4:50 PM [facility] Albumin 4.0 3.4 - 5.0 g/dL 01/29/2021 4:50 PM [facility] Protein Total 7.7 6.8 - 8.8 g/dL 01/29/2021 4:50 PM [facility] Alkaline Phosphatase 61 40 - 150 U/L 01/29/2021 4:50 PM [facility] ALT 25 0 - 70 U/L 01/29/2021 4:[address] [facility] AST 16 0 - 45 U/L 01/29/2021 4:[address] [facility] Specimen Anatomical Collection Method Collection Time Receive d Time (Source) Location / / Volume Laterality Blood 01/29/2021 9:18 AM 9:23 CDT AM CDT Annabelle Shields [facility] LAB - BLOOD ORDERABLES Performing Organization Address City/State/ZIP Code Phon e Number M [facility] [address] [facility] [place] [address] [facility] [address] [place], [place] [address], [facility] [phone] [place] [address], [facility] documented in this encounter Visit Diagnoses Diagnosis Screening for prostate cancer - Primary Special screening for malignant neoplasm of prostate Atrial fibrillation status post cardiove rsion Elevated triglycerides with high cholest [place] Mixed hyperlipidemia Dysuria documented in this encounter Additional Health Concerns Assessment Noted Time PHQ-9 Depression Total Score: 3 01/08/2021 4:16 PM CDT documented as of this encounter Care Teams Grain Cleaner Relationship Specialty Start Date End Date Leticia Armendariz, PCP - General Internal Medicine 03/17/15 Nahum Lem[place] MD 09/16/16 [facility] [address] [facility] [place] [address] Karuna Ramirez MD Cardiology 09/16/16 MD [place] Karime Castro, Referring Physician Orthopedics 05/13/17 [facility] [address] [facility] [address] [place] [address] Tito Almonte MD MD Orthopedics 05/13/[address] [place] [address] Leticia Armendariz, Assigned PCP 12/30/19 02/07/21 [facility] [address] [place] [address] Cristian Cooper MD Assigned Heart and 06/27/20 07/11/21 [address], Vascular Provider [address] [place] [address] Torsten Rodriguez MD Assigned Musculoskeletal 08/24/20 02/19/22 [address] [facility] [place] [address] documented as of this encounter
--- OUTSIDE RECORDS SUMMARY | 2022-06-25 13:48 | XMS_ITS | Encounter Summary ---
:1965 Author Organization [facility] Address [address] [place] [address] Care Team Providers Name Role Phone Leticia Armendariz MD Primary Care Provider Nahum Lemus MD Unavailable Karuna Ramirez MD Unavailable [phone] Karime Castro DO Unavailable Tito Almonte MD Unavailable Leticia Armendariz MD Unavailable Reason for Visit Reason Comments Medication Refill Encounter Details Date Type Department Care Team Description 03/26/2020 Refill [facility] Leticia Armendariz, Medication Refill [place]a [place] MD [address] [place] [address] [place] [address] [place], [place] [address] (Wo rk) Social History Tobacco Use Types Packs/Day Years Used Date Smoking Tobacco: Every Day Cigarettes 0.8 25 Smokeless Tobacco: Never Comments: 1 pack daily Alcohol Use Standard Drinks/Week Comments No 0 (1 standard drink = 0.6 oz pure alcoho l) 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 Date Recorded 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 encounter Miscellaneous Notes Telephone Encounter - Natali Hamilton RN - 03/26/2020 5:18 PM CDT Routing refill request to provider for review/approval because: Labs not current: Due for lipids documented in this encounter Plan of Treatment Not on filedocumented as of this encounter Visit Diagnoses Diagnosis Elevated triglycerides with high cholest [place] Mixed hyperlipidemia documented in this encounter Additional Health Concerns Assessment Noted Time PHQ-9 Depression Total Score: 19 02/19/2020 1:05 PM CD T documented as of this encounter Care Teams Concrete Pipe Making Machine Operator Relationship Specialty Start Date End Date Leticia Armendariz MD PCP - General Internal Medicine 03/17/15 Nahum Lemus MD 09/16/16 [place] [facility] [address]5 [facility] [place] [phone] Karuna Ramirez MD MD Cardiology 09/16/16 Karime Castro DO Referring Physician Orthopedics 05/13/17 [facility] [address] [facility] [address] [place], [place] [phone] Tito Almonte MD MD Orthopedics 05/13/[address] [place], [place] [address] Leticia Armendariz MD Assigned PCP 12/30/19 02/07/21 [facility] [address] [place] [id number] documented as of this encounter
--- OUTSIDE RECORDS SUMMARY | 2022-06-25 13:48 | XMS_ITS | Encounter Summary ---
:1965 Author Organization [facility] Address [address] [place] [address] Care Team Providers Name Role Phone Leticia Armendariz MD Primary Care Provider Nahum Lemus MD Unavailable Karuna Ramirez MD Unavailable [phone] Karime Castro DO Unavailable Tito Almonte MD Unavailable Leticia Armendariz MD Unavailable Encounter Details Date Type Department Care Team Description 02/05/2020 [facility]o Ph[facility] Heart [address] [address] Social History Tobacco Use Types Packs/Day Years Used Date Smoking Tobacco: Every Day Cigarettes 0.8 25 Smokeless Tobacco: Never Comments: 1 pack daily Alcohol Use Standard Drinks/Week Comments No 0 (1 standard drink = 0.6 oz pure alcoho l) 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 Date Recorded 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 documented as of this encounter Miscellaneous Notes Telephone Encounter - Allison Pham - 02/05/2020 1:56 PM CDT Left a message to call back. documented in this encounter Plan of Treatment Not on filedocumented as of this encounter Visit Diagnoses Not on filedocumented in this encounter Additional Health Concerns Assessment Noted Time PHQ-9 Depression Total Score: 0 12/20/2019 11:27 AM CD T documented as of this encounter Care Teams Water Mechanic Relationship Specialty Start Date End Date Leticia Armendariz MD PCP - General Internal Medicine 03/17/15 Nahum Lemus MD 09/16/16 [place] [facility] [address] [facility] [address] [place] [phone] Karuna Ramirez MD MD Cardiology 09/16/16 Karime Castro DO Referring Physician Orthopedics 05/13/17 [facility] [address] [facility] [address] [place], [place] [address] Tito Almonte MD MD Orthopedics 05/13/[address] [place], [place] [phone] Leticia Armendariz MD Assigned PCP 12/30/19 02/07/[address] [id number] documented as of this encounter
--- OUTSIDE RECORDS SUMMARY | 2022-06-25 13:48 | XMS_ITS | Encounter Summary ---
:1965 Author Organization [facility] Address [address] [place] [address] Care Team Providers Name Role Phone Leticia Armendariz MD Primary Care Provider Nahum Lemus MD Unavailable Karuna Ramirez MD Unavailable [phone] Karime Castro DO Unavailable Tito Almonte MD Unavailable Leticia Armendariz MD Unavailable Reason for Visit Reason Comments Medication Refill Encounter Details Date Type Department Care Team Description 03/05/[address] 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 documented as of this encounter Plan of Treatment Not on filedocumented as of this encounter Visit Diagnoses Diagnosis Tobacco abuse Tobacco use disorder documented in this encounter Additional Health Concerns Assessment Noted Time PHQ-9 Depression Total Score: 19 02/19/2020 1:05 PM CD T documented as of this encounter Care Teams Paralegal Specialist Relationship Specialty Start Date End Date Leticia Armendariz MD PCP - General Internal Medicine 03/17/15 Nahum Lemus MD 09/16/16 [place] [facility] [address] [facility] [address] [place] [phone] Karuna Ramirez MD MD Cardiology 09/16/16 Karime Castro DO Referring Physician Orthopedics 05/13/17 [facility] [address] [facility] [address] [place], [place] [address] Tito Almonte MD MD Orthopedics 05/13/17 [address] [facility] [address] [place], [place] [phone] Leticia Armendariz MD Assigned PCP 12/30/19 02/07/[address] [id number] documented as of this encounter
--- OUTSIDE RECORDS SUMMARY | 2022-06-25 13:48 | XMS_ITS | Encounter Summary ---
:1965 Author Organization [facility] Address [address] [place] [address] Care Team Providers Name Role Phone Leticia Armendariz MD Primary Care Provider Nahum Lemus MD Unavailable Karuna Ramirez MD Unavailable [phone] Karime Castro DO Unavailable Tito Almonte MD Unavailable Leticia Armendariz MD Unavailable Reason for Visit Reason Onset Date Comments Refill Request 06/23/2020 Encounter Details Date Type Department Care Team Description 06/23/2020 [facility] Leticia Armendariz, Refill Request [place]ar[place] [address] [place] [address] [address] [place] [address] [place], [place] [address] (Wo rk) Social History Tobacco Use Types Packs/Day Years Used Date Smoking Tobacco: Every Day Cigarettes 0.8 25 Smokeless Tobacco: Never Comments: 1 pack daily Alcohol Use Standard Drinks/Week Comments No 0 (1 standard drink = 0.6 oz pure alcoho l) 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 Date Recorded 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 documented as of this encounter Plan of Treatment Not on filedocumented as of this encounter Visit Diagnoses Diagnosis Primary insomnia Persistent disorder of initiating or adrianne ntaining sleep documented in this encounter Additional Health Concerns Assessment Noted Time PHQ-9 Depression Total Score: 19 02/19/2020 1:05 PM CD T documented as of this encounter Care Teams Edi Consultant Relationship Specialty Start Date End Date Leticia Armendariz MD PCP - General Internal Medicine 03/17/15 Nahum Lemus MD 09/16/16 [place] [facility] [address] [facility] [address] [place] [phone] Karuna Ramirez MD MD Cardiology 09/16/16 Karime Castro DO Referring Physician Orthopedics 05/13/17 [facility] [address] [facility] [address] [place], [place] [phone] Tito Almonte MD MD Orthopedics 05/13/[address] [place], [place] [phone] Leticia Armendariz MD Assigned PCP 12/30/19 02/07/21 [place] [address] [address], [place] [address] documented as of this encounter
--- OUTSIDE RECORDS SUMMARY | 2022-06-25 13:48 | XMS_ITS | Encounter Summary ---
:1965 Author Organization [facility] Address [address] [place] [address] Care Team Providers Name Role Phone Leticia Armendariz MD Primary Care Provider Nahum Lemus MD Unavailable Karuna Ramirez MD Unavailable [phone] Karime Castro DO Unavailable Tito Almonte MD Unavailable Leticia Armendariz MD Unavailable Encounter Details Date Type Department Care Team Description 02/22/2020 Travel Social History Tobacco Use Types Packs/Day Years Used Date Smoking Tobacco: Every Day Cigarettes 0.8 25 Smokeless Tobacco: Never Comments: 1 pack daily Alcohol Use Standard Drinks/Week Comments No 0 (1 standard drink = 0.6 oz pure alcoho l) 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 Date Recorded 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 [place] [address] Karuna Ramirez MD MD Cardiology 09/16/16 Karime Castro DO Referring Physician Orthopedics 05/13/17 [facility] [address] [facility] [address] [place] [address] Tito Almonte MD MD Orthopedics 05/13/[address] [place], [place] [phone] Leticia Armendariz MD Assigned PCP 12/30/19 02/07/21 [place] [address] [place] [address] documented as of this encounter
--- OUTSIDE RECORDS SUMMARY | 2022-06-25 13:48 | XMS_ITS | Encounter Summary ---
:1965 Author Organization [facility] Address [address] [place] [address] Care Team Providers Name Role Phone Leticia Armendariz MD Primary Care Provider Nahum Lemus MD Unavailable Karuna Ramirez MD Unavailable [phone] Karime Castro DO Unavailable Tito Almonte MD Unavailable Leticia Armendariz MD Unavailable Reason for Referral Consultation (Routine) - Closed Specialty Diagnoses / Procedures Referred By Contact Refer red To Contact Diagnoses Shortness of breath Leticia Armendariz MD [facility] [address] [place] [phone] Fax: Referral ID Status Reason Start Date Expiration Date Visits Requ ested Visits Authorized [id number] Closed 02/22/2020 02/21/2021 1 1 Reason for Visit Reason Onset Date Comments Consult 02/22/2020 anxiety Encounter Details Date Type Department Care Team Description 02/22/2020 Virtual Visit [facility] Leticia Armendarizn ess of breath (Primary Dx); Clinic Demarco Bender MD Mild single current episode of major dep ressive disorder (H); [address] [place] alth LUIS FELIPE (generalized anxiety disorder); [place] [address] [place] [address] [phone] Social History Tobacco Use Types Packs/Day Years Used Date Smoking Tobacco: Every Day Cigarettes 0.8 25 Smokeless Tobacco: Never Comments: 1 pack daily Alcohol Use Standard Drinks/Week Comments No 0 (1 standard drink = 0.6 oz pure alcoho l) 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 Date Recorded 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 documented as of this encounter Progress Notes Leticia Armendariz MD - 02/22/2020 10:20 AM CDT Feng Perez is a 54 year old male who is being evaluated via a billable video visit. The patient has been notified of following: This video visit will be conducted via a call between you and your physician/provider. We have found that certain health care needs can be provided without the need for an in-person physical exam. This service lets us provide the care you need with a video conversation. If a prescription is necessarywe can send it directly to your pharmacy. If lab work is needed we can place an order for that and you can then stop by our lab to have the test done at a later time. Video visits are billed at different rates depending on your insurance coverage. Please reach out toyour insurance provider with any questions. If during the course of the call the physician/provider feels a video visit is not appropriate, you will not be charged for this service. Patient has given verbal consent for Video visit? Yes Will anyone else be joining your video visit? No Subjective Feng Perez is a 54 year old male who presents today via video visit for the following health issues: HPI Hypertension Follow-up ?? Do you check your blood pressure regularly outside of the clinic? No ?? Are you following a low salt diet? Yes ?? Are your blood pressures ever more than 140 on the top number (systolic) OR more than 90 on the bottom number (diastolic), for example 140/90? No Depression and Anxiety Follow-Up ?? How are you doing with your depression since your last visit? Worsened ?? How are you doing with your anxiety since your last visit? anxiety ?? Have you had a significant life event? See below ?? Do you have any concerns with your use of alcohol or other drugs? no He has dealt with this until age [age] years old. He reports that he is exhausted from trying to control it. He becomes quite angry at times. The patient reports last May his dad's . Then he found out his dad had dementia. 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 His father in September 18. His moved out in September 25. She moved out November 03. Then MISTI hit. The patient has made 7 different appointment with therapists, and has cancelled them. He has went to the ER for chest pain and shortness of breath. He had a cardiac work up. Doni has helped with his shortness of breath. He had a CT scan of his chest, which found nodules he needs to follow up in 1 month. Of note, he is decreasing amount of smoking. He is on chantix. Insomnia. Patient has returned to the gym, and he is sleeping better through the night. ambien 10mg for sleep works better now. When the gym was closed, he was only having 2 hours of sleepin a row. Social History Tobacco Use ??? Smoking status: Current Every Day Smoker Packs/day: 0.75 Years: 25.00 Pack years: 18.75 Types: Cigarettes ??? Smokeless tobacco: Never Used ??? Tobacco comment: 1 pack daily Substance Use Topics ??? Alcohol use: No Alcohol/week: 0.0 standard drinks ??? Drug use: No Comment: clean for 13 years- cocaine PHQ 06/09/2018 12/20/2019 02/19/2020 PHQ-9 Total Score 0 0 19 Q9: Thoughts of better off /self-harm past 2 weeks Not at all Not at all Not at all Suicide Assessment Five-step Evaluation and Treatment (SAFE-T) ?? Returning to exercise Video Start Time: 11:24am Patient Active Problem List Diagnosis ??? HTN (hypertension) ??? Atrial fibrillation status post cardioversion (H) ??? CARDIOVASCULAR SCREENING; LDL GOAL LESS THAN 130 ??? Cervical disc herniation ??? Tremors of nervous system ??? Essential hypertension ??? Primary insomnia ??? Mild single current episode of major depressive disorder (H) ??? Dilated aortic root (H) ??? Pulmonary nodules Past Surgical History: Procedure Laterality Date ??? [...] ??? TESTICLE SURGERY ??? VASECTOMY ??? VASOVASOSTOMY Social History Tobacco Use ??? Smoking status: [...] ??? Prostate Cancer No family hx of Reviewed and updated as needed this visit by Provider Meds Review of Systems CONSTITUTIONAL: NEGATIVE for fever, chills, change in weight ENT/MOUTH: NEGATIVE for ear, mouth and throat problems RESP: NEGATIVE for significant cough or SOB CV: NEGATIVE for chest pain, palpitations or peripheral edema Objective There were no vitals taken for this visit. Estimated body mass index is 29.64 kg/m?? as calculated from the following: Height as of 08/24/19: 1.778 m (5' 10). Weight as of 08/24/19: 93.7 kg (206 lb 9.6 oz). Physical Exam No vitals at home recently GENERAL: Healthy, alert and no distress EYES: Eyes grossly normal to inspection. No discharge or erythema, or obvious scleral/conjunctival abnormalities. RESP: No audible wheeze, cough, or visible cyanosis. No visible retractions or increased work of breathing. SKIN: Visible skin clear. No significant rash, abnormal pigmentation or lesions. NEURO: Cranial nerves grossly intact. Mentation and speech appropriate for age. PSYCH: Mentation appears normal, affect normal/bright, judgement and insight intact, normal speech and appearance well-groomed. Diagnostic Test Results: Labs reviewed in [facility] Assessment & Plan (R06.02) Shortness of breath (primary encounter diagnosis) Comment: Plan: PULMONARY MEDICINE REFERRAL (F32.0) Mild single current episode of major depressive disorder (H) Comment: denies harm Plan: sertraline (ZOLOFT) 50 MG tablet -start zoloft (F41.1) LUIS FELIPE (generalized anxiety disorder) Comment: Plan: sertraline (ZOLOFT) 50 MG tablet -start zoloft BMI: Estimated body mass index is 29.64 kg/m?? as calculated from the following: Height as of 08/24/19: 1.778 m (5' 10). Weight as of 08/24/19: 93.7 kg (206 lb 9.6 oz). See Patient Instructions Return in about 4 weeks (around 03/21/2020) for anxiety, depression. Leticia Armendariz MD [facility] Video-Visit Details Type of service: Video Visit Video End Time11:42am Originating Location (pt. Location): Home Distant Location (provider location):home Platform used for Video Visit: Doximity Return in about 4 weeks (around 03/21/2020) for anxiety, depression. Leticia Armendariz MD documented in this encounter Plan of Treatment Scheduled Referrals Name Type Priority Associated Diagnoses Order S chedule PULMONARY MEDICINE Referral Routine Shortness of breath Or dered: 02/22/2020 REFERRAL documented as of this encounter Visit Diagnoses Diagnosis Shortness of breath - Primary Mild single current episode of major dep ressive disorder (H) LUIS FELIPE (generalized anxiety disorder) Generalized anxiety disorder Pulmonary nodules Other nonspecific abnormal finding of lee ng field documented in this encounter Additional Health Concerns Assessment Noted Time PHQ-9 Depression Total Score: 02/19/2020 1:05 PM CD T documented as of this encounter Care Teams General Intern Relationship Specialty Start Date End Date Leticia Armendariz MD PCP - General Internal Medicine 03/17/15 Nahum Lemus MD 09/16/16 [facility] [address] [facility] [address] [place] [phone] Karuna Ramirez MD MD Cardiology 09/16/16 Karime Castro DO Referring Physician Orthopedics 05/13/17 [facility] [address] [facility] [address] [place], [place] [phone] Tito Almonte MD MD Orthopedics 05/13/[address] [place], [place] [phone] Leticia Armendariz MD Assigned PCP 12/30/19 02/07/21 [facility] [address] [place], [place] [address] documented as of this encounter
--- OUTSIDE RECORDS SUMMARY | 2022-06-25 13:48 | XMS_ITS | Encounter Summary ---
:1965 Author Organization [facility] Address [address] [place] [address] Care Team Providers Name Role Phone Leticia Armendariz MD Primary Care Provider Nahum Lemus MD Unavailable Karuna Ramirez MD Unavailable [phone] Karime Castro DO Unavailable Tito Almonte MD Unavailable Leticia Armendariz MD Unavailable Reason for Visit Reason Comments Medication Refill Encounter Details Date Type Department Care Team Description 06/12/2020 [facility] Leticia Armendariz, Medication Refill [employer] MD [address] [place] [address] [place] [address] [place], [place] [address] (Wo rk) Social History Tobacco Use Types Packs/Day Years Used Date Smoking Tobacco: Every Day Cigarettes 0.8 25 Smokeless Tobacco: Never Comments: 1 pack daily Alcohol Use Standard Drinks/Week Comments No 0 (1 standard drink = 0.6 oz pure alcoho l) 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 Date Recorded 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 documented as of this encounter Miscellaneous Notes Telephone Encounter - Akila Low RN - 06/13/2020 8:35 AM CDT Pending Prescriptions: Disp Refills sertraline (ZOLOFT) 50 MG tablet [Pharmacy*90 tab*0 Sig: TAKE 1 TABLET BY MOUTH EVERY DAY Routing refill request to provider for review/approval because: Patient fails protocol PHQ-9 score: PHQ 02/19/2020 PHQ-9 Total Score 19 Q9: Thoughts of better off /self-harm past 2 weeks Not at all documented in this encounter Plan of Treatment Not on filedocumented as of this encounter Visit Diagnoses Diagnosis Mild single current episode of major dep ressive disorder (H) LUIS FELIPE (generalized anxiety disorder) Generalized anxiety disorder documented in this encounter Additional Health Concerns Assessment Noted Time PHQ-9 Depression Total Score: 19 02/19/2020 1:05 PM CD T documented as of this encounter Care Teams Melt Helper Relationship Specialty Start Date End Date Letiica Armendariz MD PCP - General Internal Medicine 03/17/15 Nahum Lemus MD 09/16/16 [facility] [address] [facility] [place] [address] Karuna Ramirez MD MD Cardiology 09/16/16 Karime Castro DO Referring Physician Orthopedics 05/13/17 [facility] [address] [facility] [address] [place], [place] [phone] Tito Almonte MD MD Orthopedics 05/13/[address] [place], [place] [address] Leticia Armendariz MD Assigned PCP 12/30/19 02/07/21 [facility] [address], [place] [address] documented as of this encounter
--- OUTSIDE RECORDS SUMMARY | 2022-06-25 13:48 | XMS_ITS | Encounter Summary ---
:1965 Author Organization [facility] Address [address] [place] [address] Care Team Providers Name Role Phone Leticia Armendariz MD Primary Care Provider Nahum Lemus MD Unavailable Karuna Ramirez MD Unavailable [phone] Karime Castro DO Unavailable Tito Almonte MD Unavailable Leticia Armendariz MD Unavailable Reason for Visit Reason Comments Medication Refill Encounter Details Date Type Department Care Team Description 03/19/2020 Refill [facility] Leticia Armendariz, Medication Refill [place] MD [address] [place] [phone] [place] [address] [place], [place] [address] (Wo rk) Social History Tobacco Use Types Packs/Day Years Used Date Smoking Tobacco: Every Day Cigarettes 0.8 25 Smokeless Tobacco: Never Comments: 1 pack daily Alcohol Use Standard Drinks/Week Comments No 0 (1 standard drink = 0.6 oz pure alcoho l) 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 Date Recorded Male 08/13/2020 9:06 AM [employer] COVID-19 Exposure Response Date Recorded In the last month, have you been in contact with No / Unsure 02/22/2020 10:20 AM CDT someone who was confirmed or suspected to have Coronavirus / COVID-19? documented as of this encounter Miscellaneous Notes Telephone Encounter - Akila Low RN - 03/20/2020 8:50 AM CDT Pending Prescriptions: Disp Refills sertraline (ZOLOFT) 50 MG tablet [Pharmacy*34 tab*0 Sig: TAKE 1/2 TABLET (25 MG) BY MOUTH DAILY FOR 7 DAYS, THEN 1 TABLET (50 MG) DAILY. Routing refill request to provider for review/approval because: PHQ-9 score PHQ-9 score: PHQ 02/19/2020 PHQ-9 Total Score [...] documented as of this encounter Care Teams Manager Hospitality Relationship Specialty Start Date End Date Leticia Armendariz MD PCP - General Internal Medicine 03/17/15 Nahum Lemus MD 09/16/16 [facility] GA[facility] [id number] [facility] [place] [id number] Karuna Ramirez MD MD Cardiology 09/16/16 Kairme Castro DO Referring Physician Orthopedics 05/13/17 [facility] [address] [facility] [address] [place] [address] Tito Almonte MD MD Orthopedics 05/13/17 [facility] [address] [place], [place] [address] Leticia Armendariz MD Assigned PCP 12/30/19 02/07/[address] [address] documented as of this encounter
--- OUTSIDE RECORDS SUMMARY | 2022-06-25 13:48 | XMS_ITS | Encounter Summary ---
:1965 Author Organization [place] Address [address] [place] [address] Care Team Providers Name Role Phone Leticia Armendariz MD Primary Care Provider Nahum Lemus MD Unavailable Karuna Ramirez MD Unavailable [phone] Karime Castro DO Unavailable Tito Almonte MD Unavailable Leticia Armendariz MD Unavailable Cristian Cooper MD Unavailable Encounter Details Date Type Department Care Team Description 08/22/[address] [facility] Raphael ateral primary [facility] osteoarthritis of hip [address] [place] [address] Social History Tobacco Use Types Packs/Day Years Used Date Smoking Tobacco: Every Day Cigarettes 0.8 25 Smokeless Tobacco: Never Comments: 1 pack daily Alcohol Use Standard Drinks/Week Comments No 0 (1 standard drink = 0.6 oz pure alcoho l) 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 Date Recorded Male 08/13/2020 9:06 AM [employer] COVID-19 Exposure Response Date Recorded In the last month, have you been in contact with No / Unsure 08/22/2020 3:25 PM [employer] someone who was confirmed or suspected to have Coronavirus / COVID-19? documented as of this encounter Plan of Treatment Not on filedocumented as of this encounter Procedures Procedure Name Priority Date/Time Associated Diagnosis Comme nts CYCLIC CITRULLINATED Routine 08/22/2020 3:26 Bilateral primary Results for this PEPTIDE ANTIBODY IGG PM [employer] osteoarthritis of hi p procedure are in the results section. CBC WITH PLATELETS & Routine 08/22/2020 3:26 Bilateral primary Results for this DIFFERENTIAL PM [employer] osteoarthritis of hip proced ure are in the results section. RHEUMATOID FACTOR Routine 08/22/2020 3:26 Bilateral primary Re sults for this PM [employer] osteoarthritis of hip proced ure are in the results section. ERYTHROCYTE Routine 08/22/2020 3:26 Bilateral primary Results for this SEDIMENTATION RATE PM [employer] osteoarthritis of hip procedure are in AUTO the results section. CRP INFLAMMATION Routine 08/22/2020 3:26 Bilateral primary Res ults for this PM [employer] osteoarthritis of hip proced ure are in the results section. documented in this encounter Results Cyclic Citrullinated Peptide Antibody IgG (08/22/2020 3:26 PM [employer]) [facility] gist Method Time Signature Cyclic 1 <7 U/mL 08/27/2020 [facility] 10:24 AM [employer]DER [facility] Peptide Antibody, [facility] Comment: Negative Specimen Anatomical Collection Method Collection Time Receive d Time (Source) Location / / Volume Laterality Blood specimen 08/22/2020 3:26 PM 020 3:31 (specimen) [employer] PM [employer] Karime Castro DO LAB - BLOOD ORDERABLES Performing Organization Address City/[facility] Code Phon e Number [address] CRP inflammation (08/22/2020 3:26 PM [employer] BU[employer]) Analysis Performed At Patho logist Time Signature CRP Inflammation <2.9 0.0 - 8.0 08/22/2020 [facility] mg/L 9:42 PM [employer] Specimen Anatomical Collection Method Collection Time Receive d Time (Source) Location / / Volume Laterality Blood specimen 08/22/2020 3:26 PM 020 3:31 (specimen) [employer] PM [employer] Karime Castro LAB - BLOOD ORDERABLES Performing Organization Address City/[facility] Phon e Number [address] CBC with platelets differential (08/22/2020 3:26 PM [employer]) [facility] gist Method Time Signature WBC 10.5 4.0 - 08/22/2020 [facility] 11.0 3:46 PM [facility] [employer] [facility] CLINICS 10e9/L [place] RBC Count 4.89 4.4 - 5.9 08/22/2020 [facility] 10e12/L 3:46 PM [facility] [facility] [place] Hemoglobin 15.3 13.3 - 08/22/2020 [facility] 17.7 g/dL 3:46 PM [facility] [place] Hematocrit 44.9 40.0 - 08/22/2020 [facility] 53.0 % 3:46 PM [facility] [employer] [facility] [place] MCV 92 78 - 100 08/22/2020 [facility] fl 3:46 PM [facility] [employer] [facility] [place] MCH 31.3 26.5 - 08/22/2020 [facility] 33.0 pg 3:46 PM [facility] [employer] [facility] [place] MCHC 34.1 31.5 - 08/22/2020 [facility] 36.5 g/dL 3:46 PM [facility] [facility] [place] RDW 12.7 10.0 - 08/22/2020 [facility] 15.0 % 3:46 PM [facility] [place] Platelet Count 236 150 - 450 08/22/2020 [facility] 10e9/L 3:46 PM [facility] [place] % Neutrophils 69.8 % 08/22/2020 [facility] 3:46 PM [facility] [place] % Lymphocytes 19.5 % 08/22/2020 [facility] 3:46 PM [facility] [place] % Monocytes 8.9 % 08/22/2020 [facility] 3:46 PM [facility] [place] % Eosinophils 1.2 % 08/22/2020 [facility] 3:46 PM [facility] [place] % Basophils 0.6 % 08/22/2020 [facility] 3:46 PM [facility] [place] Absolute 7.3 1.6 - 8.3 08/22/2020 [facility] Neutrophil 10e9/L 3:46 PM [facility] [place] Absolute 2.0 0.8 - 5.3 08/22/2020 [facility] Lymphocytes 10e9/L 3:46 PM [facility] [place] Absolute 0.9 0.0 - 1.3 08/22/2020 [facility] Monocytes 10e9/L 3:46 PM [facility] [place] Absolute 0.1 0.0 - 0.7 08/22/2020 [facility] Eosinophils 10e9/L 3:46 PM [facility] [place] Absolute 0.1 0.0 - 0.2 08/22/2020 [facility] Basophils 10e9/L 3:46 PM [facility] Diff Method Automated 08/22/2020 [facility] Method 3:46 PM [facility] Specimen Anatomical Collection Method Collection Time Receive d Time (Source) Location / / Volume Laterality Blood specimen 08/22/2020 3:26 PM 020 3:31 (specimen) [employer] PM [employer] Karime Castro DO LAB - BLOOD ORDERABLES Performing Organization Address [facility]/ZIP Code Phon e Number [facility] [address] [place], [place] [address] [address] Rheumatoid factor (08/22/2020 3:26 PM [employer] BU[employer]DER) athologist Signature Rheumatoid <7 <12 IU/mL 08/25/2020 [facility] 1:21 PM [facility] Specimen Anatomical Collection Method Collection Time Receive d Time (Source) Location / / Volume Laterality Blood specimen 08/22/2020 3:26 PM 020 3:31 (specimen) [employer] PM [employer] Karime Castro DO LAB - BLOOD ORDERABLES Performing Organization Address City/[facility]/ZIP Code Phon e Number [facility] [address] [place], [place] [phone] [place] [address] Erythrocyte sedimentation rate auto (08/22/2020 3:26 PM [employer]) athologist Signature Sed Rate 5 0 - 20 mm/h 08/22/2020 [facility] 3:58 PM [facility] Specimen Anatomical Collection Method Collection Time Receive d Time (Source) Location / / Volume Laterality Blood specimen 08/22/2020 3:26 PM 020 3:31 (specimen) [employer] PM [employer]ILDER Shemara Irina Castro DO LAB - BLOOD ORDERABLES Performing Organization Address City/[facility]/ZIP [facility] Phon e Number [facility] [address] [place], [place] [address] [address] documented in this encounter Visit Diagnoses Diagnosis Bilateral primary osteoarthritis of hip documented in this encounter Additional Health Concerns Assessment Noted Time PHQ-9 Depression Total Score: 19 02/19/2020 1:05 PM CD T documented as of this encounter Care Teams Drywall Finisher Relationship Specialty Start Date End Date Leticia Armendariz MD PCP - General Internal Medicine 03/17/15 Nahum Lemus MD 09/16/16 [place] [facility] [address] [facility] [place] [id number] Karuna Ramirez MD Cardiology 09/16/16 MD E[facility] Karime Castro DO Referring Physician Orthopedics 05/13/17 [facility] [address] [facility] [address] [place] [address] Tito Almonte MD MD Orthopedics 05/13/[address] [place], [place] [id number] Leticia Armendariz MD Assigned PCP 12/30/19 02/07/21 [facility] [address] [place], [place] [phone] Cristian Cooper MD Assigned Heart and 06/27/20 07/11/21 [address] , [facility] Vascular Provider [address] [place], [place] [phone] documented as of this encounter
--- OUTSIDE RECORDS SUMMARY | 2022-06-25 13:48 | XMS_ITS | Encounter Summary ---
:1965 Author Organization [facility] Address [address] [place] [address] Care Team Providers Name Role Phone Leticia Armendariz MD Primary Care Provider Nahum Lemus MD Unavailable Karuna Ramirez MD Unavailable [phone] Karime Castro DO Unavailable Tito Almonte MD Unavailable Leticia Armendariz MD Unavailable Cristian Cooper MD Unavailable Reason for Referral Consultation (Routine) - Closed Specialty Diagnoses / Procedures Referred By Contact Refer red To Contact Diagnoses Bilateral primary osteoarthritis of hip Torsten Rodriguez MD [address] [place], [place] [address] Referral ID Status Reason Start Date Expiration Date Visits Requ ested Visits Authorized [id number] Closed 08/19/2020 08/19/2021 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 Reason for Visit Reason Comments Hip Pain Consultation (Routine) - Closed Specialty Diagnoses / Procedures Referred By Contact Refer red To Contact Diagnoses Bilateral primary osteoarthritis of hip Karime Castro DO [facility] [address] [facility] [address] [place] [address] Referral ID Status Reason Start Date Expiration Date Visits Requ ested Visits Authorized [id number] Closed 08/14/2020 08/14/2021 1 1 Encounter Details Date Type Department Care Team Description 08/19/2020 Office Visit [facility] Karime Castro, DO [facility] [place] [facility] [address] [facility] [address] [place], [place] [address] Bilateral primary Orthopedic Clinic Torsten Rodriguez MD [address] [place] [address] osteoarthritis of hip [place] [id number] [place] [address] [address] [place] [address] Social History Tobacco Use Types Packs/Day Years Used Date Smoking Tobacco: Every Day Cigarettes 0.8 25 Smokeless Tobacco: Never Tobacco Cessation: Ready to Quit: No; Co unseling Given: Yes Comments: 1 pack daily Alcohol Use Standard Drinks/Week Comments No 0 (1 standard drink = 0.6 oz pure alcoho l) 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 Date Recorded Male 08/13/2020 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 documented as of this encounter Last Filed Vital Signs Vital Sign Reading Time Taken Comments Blood Pressure 148/78 08/19/2020 11:38 AM TAXICAB DRIVER Pulse - - Temperature - - Respiratory Rate - - Oxygen Saturation - - Inhaled Oxygen Concentration - - Weight 93 kg (205 lb) 08/19/2020 11:38 AM TAXICAB DRIVER Height 177.8 cm (5' 10) 08/19/2020 11:38 AM TAXICAB DRIVER Body Mass Index 29.41 08/19/2020 11:38 AM TAXICAB DRIVER documented in this encounter Patient Instructions Patient InstructionsRadha Reyna - 08/19/2020 11:30 AM CST Recommend bilateral ultrasound guided hip injections. Follow up via Video or Telephone visit 2 weeks after injections, call [phone] to schedule this appointment. Call my office with any questions or concerns, . CAB DRIVER documented in this encounter Progress Notes Torsten Rodriguez MD - 08/19/2020 11:30 AM CST Images from the original note were not included. [facility] Orthopaedic Surgery Consultation by Torsten Rodriguez M.D. Feng Perez Age: [age] year old Date of : 1965 Requesting physician: Leticia Josue Background history: DX: 1. Hepatitis 2. GERD 3. Hypertension 4. Atrial fibrillation 5. Dilated aortic root 6. Depressive disorder TREATMENTS: 1. 04/15/2014, C5-C6 anterior discectomy and fusion, Dr. Sandoval 2. 07/21/2018, open left inguinal hernia repair, Dr. Rausch 3. 04/12/2019 right L4-S1 hemilaminectomy History of Present Illness: 55 year old male who was referred to our clinic by Dr. Castro because of bilateral hip pain. Patienthas had chronic hip pain that waxes and wanes for the past 3 to 4 years. In 2017 he had bilateral intra-articular injections of his hip which alleviated his pain for proximately 3 to 4 months. Patient also has a past medical history that includes lower back pain. For this he has underwent a L4-S1 hemilaminectomy by Dr. Sandoval in 2019. Patient feels that the pain is mostly located in his groin and buttock region which does not radiate down his lower extremities. He describes night pain and initiationstiffness and soreness. After sitting down for 10 minutes he starts feeling more pain that subsides a fter 5 minutes of walking. He has trouble putting on his shoes. He denies the presence of motor or neurological deficits. Does not ambulate with any assistive devices. To mitigate the pain he uses NSAIDs. He has not seen a physical therapist recently. Patient works in [employer]. He lives independently and alone. Current symptoms: Problem: Right sided low back pain, bilateral hip pain. Onset and duration: chronic low back pain, and hip pain. Recent flare-up of pain ~ 4 weeks ago. Awakens from sleep due to sx's: Yes Precipitating Injury: No Other joints or sites painful: Yes, neck, low back Social: Occupation: [employer]- [employer] removal Living situation: lives alone, his daughter occasionally will stay with him Hobbies / Sports: has been limited due to his pain from riding motorcycle, and working around the house. Smoking: Yes Alcohol: No Illicit drug use: No Physical Exam: EXAMINATION pertinent findings: PSYCH: Pleasant, healthy-appearing, alert, oriented x3, cooperative. Normal mood and affect. VITAL SIGNS: Blood pressure (!) 148/78, height 1.778 m (5' 10), weight 93 kg (205 lb).. Reviewed nursing intake notes. Body mass index is 29.41 kg/m??. RESP: non labored breathing ABD: benign, soft, non-tender, no acute peritoneal findings SKIN: grossly normal LYMPHATIC: grossly normal, no adenopathy, no extremity edema NEURO: grossly normal , no motor deficits VASCULAR: satisfactory perfusion of all extremities MUSCULOSKELETAL: Alignment: Neutral Gait: Slightly antalgic with shortened stance over the right lower extremity. Hips: L hip: ROM FF 100 ??, Extension 0 ??, IRF 0 ??, ERF 40 ??, ABD 40 ??, ADD 10 ?? R hip: ROM FF 95 ??, Extension 0 ??, IRF 0 ??, ERF 40 ??, ABD 40 ??, ADD 10 ?? Bilateral LE: Thigh and leg compartments soft and compressible +Quad/TA/GSC/FHL/EHL SILT DP/SP/Scooby/Saph/Tib nerve distributions Palpable dorsalis pedis pulse Data: All laboratory data reviewed All imaging studies reviewed by me personally. XR pelvis/bilateral hip 08/14/2020: Moderate osteoarthritic changes of the right hip. Superior joint space narrowing with sclerosis, osteophyte formation and cyst formation. Calcification of the labrum. Cam deformity/osteophytic changes femoral neck. A similar pattern to a lesser extent is visible on the left side. Assessment and Plan: Assessment: 55-year-old male with chronic bilateral hip pain right > left most likely due to osteoarthritic changes in the setting of underlying cam deformity and labral pathology. Lumbar spine pathology seems less likely but cannot be excluded. Plan: I extensively discussed my findings with the patient. In order to objectify the origin of his pain intra-articular injections of bilateral hips under fluoroscopic guidance were proposed. This would be both diagnostic and therapeutic will help differentiate between intra-articular and lumbar spine pathology. We had a long discussion about nonoperative and operative management options for hip osteoarthritis. Patient understands and agrees to the treatment plan as set forth. We will follow-up 2 weeks after the injections to evaluate its results. I furthermore advised him strongly to attempt quitting smoking to which he is agreeable. Feng to follow up with Primary Care provider regarding elevated blood pressure. Thank you for your referral. Torsten Rodriguez MD [employer] Adult [employer] [facility] Department of Orthopaedic Surgery Pager DATA for DOCUMENTATION: Past Medical History: Patient Active Problem List Diagnosis ??? HTN (hypertension) ??? Atrial fibrillation status post cardioversion (H) ??? CARDIOVASCULAR SCREENING; LDL GOAL LESS THAN 130 ??? Cervical disc herniation ??? Tremors of nervous system ??? Essential hypertension ??? Primary insomnia ??? Mild single current episode of major depressive disorder (H) ??? Dilated aortic root (H) ??? Pulmonary nodules Past Medical History: Diagnosis Date ??? A-fib (H) ??? Arrhythmia afib ??? Arthritis hips, back, hands ??? Atrial fibrillation (H) ??? Complication of anesthesia panics when waking up ??? Gastroesophageal reflux disease ??? Hepatitis 15 yrs ago from bad food ??? Hypertension ??? Other chronic pain back, hip and hands ??? Palpitations Also see scanned health assessment forms. Past Surgical History: Past Surgical History: Procedure Laterality Date ??? [...] TESTICLE SURGERY ??? VASECTOMY ??? VASOVASOSTOMY Social History: Social History Socioeconomic History ??? Marital status: Legally Spouse name: Not on file ??? Number of children: 2 ??? Years of education: Not on file ??? Highest education level: Not on file Occupational History Employer: [employer] Social Needs ??? Financial resource strain: Not on file ??? Food insecurity Worry: Not on file Inability: Not on file ??? Transportation needs Medical: Not on file Non-medical: Not on file Tobacco Use ??? Smoking status: Current Every Day Smoker Packs/day: 0.75 Years: 25.00 Pack years: 18.75 Types: Cigarettes ??? Smokeless tobacco: Never Used ??? Tobacco comment: 1 pack daily Substance and Sexual Activity ??? Alcohol use: No Alcohol/week: 0.0 standard drinks ??? 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 Sexual activity: Yes Partners: Female Comment: spouse Lifestyle ??? Physical activity Days per week: Not on file Minutes per session: Not on file ??? Stress: Not on file Relationships ??? Social connections Talks on phone: Not on file Gets together: Not on file Attends moravian service: Not on file Active member of club or organization: Not on file Attends meetings of clubs or organizations: Not on file Relationship status: Not on file ??? Intimate partner violence Fear of current or ex partner: Not on file Emotionally abused: Not on file Physically abused: Not on file Forced sexual activity: Not on file Other Topics Concern ??? Parent/sibling w/ CABG, AK or angioplasty before 65F 55M? Not Asked ??? Service Not Asked ??? Blood Transfusions Not Asked ??? Caffeine Concern No Comment: 1 pot of coffee daily ??? Occupational Exposure Not Asked ??? Hobby Hazards Not Asked ??? Sleep Concern Not Asked ??? Stress Concern Not Asked ??? Weight Concern Not Asked ??? Special Diet No Comment: regular ??? Back Care Not Asked ??? Exercise No Comment: work is physical ??? Bike Helmet Not Asked ??? Seat Belt Not Asked ??? Self-Exams Not Asked Social History Narrative ??? Not on file Family History: Family History Problem Relation Age of Onset ??? Arthritis Mother ??? Hypertension Mother ??? Circulatory Father ??? Coronary Artery Disease Father ??? Hypertension Father ??? Hyperlipidemia Father ??? C.A.D. Maternal Grandmother ??? C.A.D. Paternal Grandmother ??? Breast Cancer No family hx of ??? Colon Cancer No family hx of ??? Prostate Cancer No family hx of Medications: Current Outpatient Medications Medication Sig ??? amLODIPine (NORVASC) 5 MG tablet TAKE 1 TABLET BY MOUTH EVERY DAY ??? ciclopirox (LOPROX) 0.77 % cream Apply topically 2 times daily ??? fenofibrate (TRICOR) 48 MG tablet TAKE 2 TABLETS BY MOUTH DAILY. ??? ketoconazole (NIZORAL) 2 % external shampoo Use over affected area daily ??? losartan (COZAAR) 50 MG tablet TAKE 1 TABLET BY MOUTH EVERY DAY ??? omeprazole (PRILOSEC) 20 MG CR capsule Take 20 mg by mouth daily ??? sertraline (ZOLOFT) 50 MG tablet TAKE 1 TABLET BY MOUTH EVERY DAY ??? tamsulosin (FLOMAX) 0.4 MG capsule Take 1 capsule (0.4 mg) by mouth daily ??? zolpidem (AMBIEN) 10 MG tablet TAKE 1 TABLET BY MOUTH AT BEDTIME NEEDED No current facility-administered medications for this visit. Review of Systems: A comprehensive 10 point review of systems (constitutional, ENT, cardiac, peripheral vascular, lymphatic, respiratory, GI, , Musculoskeletal, skin, Neurological) was performed and found to be negative except as described in this note. 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 DRIVER documented in this encounter Plan of Treatment Scheduled Referrals Name Type Priority Associated Diagnoses Order S chedule Orthopedic & Spine Referral Routine Bilateral primary Expe cted: Post Acute Care Nurse Referral osteoarthritis of hip 08/19/2020, Expires: 2020 documented as of this encounter Visit Diagnoses Diagnosis Bilateral primary osteoarthritis of hip documented in this encounter Additional Health Concerns Assessment Noted Time PHQ-9 Depression Total Score: 19 02/19/2020 1:05 PM CD T documented as of this encounter Care Teams Library Aide Relationship Specialty Start Date End Date Leticia Armendariz MD PCP - General Internal Medicine 03/17/15 Nahum Lemus MD 09/16/16 [place] [facility] [address] [facility] [place] [address] Karuna Ramirez MD Cardiology 09/16/16 MD Erendira Karime Castro DO Referring Physician Orthopedics 05/13/17 [facility] [address] [facility] [address] [place], [place] [phone] Tito Almonte MD MD Orthopedics 05/13/[address] [place], [place] [phone] Leticia Armendariz MD Assigned PCP 12/30/19 02/07/21 [facility] [address] [place], [place] [phone] Cristian Cooper MD Assigned Heart and 06/27/20 07/11/21 [address] [facility] [place] , [facility] Vascular Provider [address] [place], [place] [phone] documented as of this encounter
--- OUTSIDE RECORDS SUMMARY | 2022-06-25 13:48 | XMS_ITS | Encounter Summary ---
:1965 Author Organization [facility] [place] Address [address] [place] [address] Care Team Providers Name Role Phone Leticia Armendariz MD Primary Care Provider Nahum Lemus MD Unavailable Karuna Ramirez MD Unavailable Karime Castro DO Unavailable Tito Almonte MD Unavailable Leticia Armendariz MD Unavailable Cristian Cooper MD Unavailable Encounter Details Date Type Department Care Team Description 08/14/2020 Travel Social History Tobacco Use Types Packs/Day Years Used Date Smoking Tobacco: Every Day Cigarettes 0.8 25 Smokeless Tobacco: Never Comments: 1 pack daily Alcohol Use Standard Drinks/Week Comments No 0 (1 standard drink = 0.6 oz pure alcoho l) 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 Date Recorded Male 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 documented as of this encounter Plan of Treatment Not on filedocumented as of this encounter Visit Diagnoses Not on filedocumented in this encounter Additional Health Concerns Assessment Noted Time PHQ-9 Depression Total Score: 19 02/19/2020 1:05 PM CD T documented as of this encounter Care Teams Carton Counter Feeder Relationship Specialty Start Date End Date Leticia Armendariz MD PCP - General Internal Medicine 03/17/15 Nahum Lemus MD 09/16/16 [place] [facility] [address] [facility] [address] [place], [place] [phone] Karuna Ramirez MD Cardiology 09/16/16 MD Erendira Karime Castro DO Referring Physician Orthopedics 05/13/17 [facility] MED [address] [facility] [address] [place], [place] [phone] Tito Almonte MD MD Orthopedics 05/13/[address] [place], [place] [phone] Leticia Armendariz MD Assigned PCP 12/30/19 02/07/21 [facility] [address] [place], [place] [address] Cristian Cooper MD Assigned Heart and 06/27/20 07/11/21 [address], [facility] Vascular Provider [address] [place], [place] [phone] documented as of this encounter
--- OUTSIDE RECORDS SUMMARY | 2022-06-25 13:48 | XMS_ITS | Encounter Summary ---
:1965 Author Organization [facility] Address [address] [place] [address] Care Team Providers Name Role Phone Leticia Armendariz MD Primary Care Provider Nahum Lemus MD Unavailable Karuna Ramirez MD Unavailable [phone] Karime Castro DO Unavailable Tito Almonte MD Unavailable Leticia Armendariz MD Unavailable Cristian Cooper MD Unavailable Torsten Rodriguez MD Unavailable Annabelle Shields CNP Unavailable Reason for Visit Reason Onset Date Comments Medication Refill 02/08/2020 CHANTIX 1 MG tablet Encounter Details Date Type Department Care Team Description 02/08/2020 Refill [facility] Leticia Armendariz Medication Refill Demarco Bender MD (CHANTIX 1 MG tablet) [address] [place] [id number] Social History Tobacco Use Types Packs/Day Years Used Date Smoking Tobacco: Every Day Cigarettes 0.8 25 Smokeless Tobacco: Never Comments: 1 pack daily Alcohol Use Standard Drinks/Week Comments No 0 (1 standard drink = 0.6 oz pure alcoho l) 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 Date Recorded 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 documented as of this encounter Miscellaneous Notes Telephone Encounter - Ro Mares RPH - 02/11/2020 2:30 PM CDT Prescription approved per [facility] Refill Protocol. Ro Mares Pharm D [phone] (phone) [phone] (pager) Medication Therapy Management Pharmacist Telephone Encounter - Keyla Pennington - 02/08/2020 3:11 PM CDT Requested Prescriptions Pending Prescriptions Disp Refills ??? CHANTIX 1 MG tablet [Pharmacy Med Name: CHANTIX 1 MG TABLET] Last Written Prescription Date: 01/13/2020 Last Fill Quantity: 90, # refills: 0 Last office visit: 08/24/2019 with prescribing provider: Michael Future Office Visit: 56 tablet 1 Sig: TAKE 1 TABLET BY MOUTH TWICE A DAY Partial Cholinergic Nicotinic Agonist Agents Passed - 02/08/2020 8:32 AM Passed - Blood pressure under 140/90 in past 12 months BP Readings from Last 3 Encounters: 02/05/20 122/80 08/24/19 138/84 04/12/19 120/78 Passed - Recent (12 mo) or future (30 days) visit within the authorizing provider's specialty Patient has had an office visit with the authorizing provider or a provider within the authorizing providers department within the previous 12 mos or has a future within next 30 days. See Patient Info tab in inbasket, or Choose Columns in Meds & Orders section of the refill encounter. Passed - Medication is active on med list Passed - Patient is 18 years of age or older documented in this encounter Plan of Treatment Not on filedocumented as of this encounter Visit Diagnoses Diagnosis Tobacco abuse Tobacco use disorder documented in this encounter Additional Health Concerns Assessment Noted Time PHQ-9 Depression Total Score: 0 12/20/2019 11:27 AM CD T documented as of this encounter Care Teams Vp Ancillary Relationship Specialty Start Date End Date Leticia Armendariz, PCP - General Internal Medicine 03/17/15 Nahum Lemus MD 09/16/16 [facility] [facility] [address] [facility] [address] [place] [phone] Karuna Ramirez MD Cardiology 09/16/16 MD Erendira Karime Castro, Referring Physician Orthopedics 05/13/17 DO [facility] [address] [facility] [address] [place], [place] [phone] Tito Almonte MD MD Orthopedics 05/13/17 [address] [place] [address] Leticia Armendariz, Assigned PCP 12/30/19 02/07/21 [facility] [address], [place] [address] Cristian Cooper MD Assigned Heart and 06/27/20 07/11/[address], Vascular Provider [facility] [address] [place], [place] [address] Torsten Rodriguez MD Assigned Musculoskeletal 08/24/20 02/19/[address] Provider [place], [place] [phone] Annabelle Shields, EDISON Assigned PCP 02/08/21 [address] [place] [address] documented as of this encounter
--- OUTSIDE RECORDS SUMMARY | 2022-06-25 13:48 | XMS_ITS | Encounter Summary ---
:1965 Author Organization [facility] Address [address] [place] [address] Care Team Providers Name Role Phone Leticia Armendariz MD Primary Care Provider Nahum Lemus MD Unavailable Karuna Ramirez MD Unavailable [phone] Karime Castro DO Unavailable Tito Almonte MD Unavailable Leticia Armendariz MD Unavailable Cristian Cooper MD Unavailable Reason for Visit Diagnostic Imaging XR (Routine) - Closed Specialty Diagnoses / Procedures Referred By Contact Refer red To Contact Diagnoses Chronic hip pain, bilateral Gloria, Shemara Irina, DO Procedures XR Pelvis and Hip Bilateral 2 Views [place] [id number] [facility] [address] [place] [address] Referral ID Status Reason Start Date Expiration Date Visits Requ ested Visits Authorized [id number] Closed 08/14/2020 08/14/2021 1 1 Encounter Details Date Type Department Care Team Description 08/14/2020 [facility] Karime Castro Chronic hip pain, Procedure Sports and Irina, DO bilateral [facility] [address] [place] [address] 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 documented as of this encounter Plan of Treatment Not on filedocumented as of this encounter Procedures Procedure Name Priority Date/Time Associated Diagnosis Comme nts XR PELVIS AND HIP Routine 08/14/2020 11:48 AM Chronic hip pain , Results for this BILATERAL 2 VIEWS AUTOMATIC GRINDING MACHINE OPERATOR bilateral procedure are in the results section. documented in this encounter Results XR Pelvis and Hip Bilateral 2 Views (08/14/2020 11:48 AM AUTOMATIC GRINDING MACHINE OPERATOR) Anatomical Region Laterality Modality Hip, Abdomen/Pelvis Bilateral Computed Radiography Specimen (Source) Anatomical Location Collection Method / Collectio n Time Received Time / Laterality Volume Impressions 08/14/2020 3:48 PM AUTOMATIC GRINDING MACHINE OPERATOR IMPRESSION: Mild bilateral hip osteoarthritis. There is bony convexity at the lateral femoral head-neck junctio n regions bilaterally. ??This can predispose to femoroacetabular impin gement, and clinical correlation is recommended. SUMANTH CASILLAS MD Narrative 08/14/2020 3:48 PM AUTOMATIC GRINDING MACHINE OPERATOR PELVIS AND BILATERAL HIPS, TWO VIEWS ?? 08/14/2020 11:48 AM HISTORY: ??Chronic hip pain, bilateral. COMPARISON: ??04/28/2017 Procedure Note Sumanth Casillas MD - 08/14/2020Formatting o f this note might be different from the original. PELVIS AND BILATERAL HIPS, TWO VIEWS 06/2020 11:48 AM HISTORY: Chronic hip pain, bilateral. COMPARISON: 04/28/2017 IMPRESSION: Mild bilateral hip osteoarth ritis. There is bony convexity at the lateral femoral head-neck junctio n regions bilaterally. This can predispose to femoroacetabular impin gement, and clinical correlation is recommended. SUMANTH CASILLAS MD Karime Castro DO IMG DIAGNOSTIC IMAGING ORDER WHITNEY documented in this encounter Visit Diagnoses Diagnosis Chronic hip pain, bilateral documented in this encounter Additional Health Concerns Assessment Noted Time PHQ-9 Depression Total Score: 19 02/19/2020 1:05 PM CD T documented as of this encounter Care Teams Legal Clerk Relationship Specialty Start Date End Date Leticia Armendariz MD PCP - General Internal Medicine 03/17/15 Nahum Lemus MD 09/16/16 [place] [facility] [address] [facility] [place] [address] Karuna Ramirez MD Cardiology 09/16/16 MD [place] Karime Castro DO Referring Physician Orthopedics 05/13/17 [facility] [address] [facility] [address] [place], [place] [phone] Tito Almonte MD MD Orthopedics 05/13/[address] [place], [place] [address] Leticia Armendariz MD Assigned PCP 12/30/19 02/07/21 [facility] [address] [place], [place] [address] Cristian Cooper MD Assigned Heart and 06/27/20 07/11/21 [address], [facility] Vascular Provider [address] [place], [place] [address] documented as of this encounter
--- OUTSIDE RECORDS SUMMARY | 2022-06-25 13:48 | XMS_ITS | Encounter Summary ---
:1965 Author Organization [facility] Address [address] [place] [address] Care Team Providers Name Role Phone Leticia Armendariz MD Primary Care Provider Nahum Lemus MD Unavailable Karuna Ramirez MD Unavailable [phone] Karime Castro DO Unavailable Tito Almonte MD Unavailable Leticia Armendariz MD Unavailable Cristian Cooper MD Unavailable Torsten Rodriguez MD Unavailable Reason for Visit Reason Comments Medication Refill Encounter Details Date Type Department Care Team Description 11/21/2020 [facility] Leticia Armendariz, Medication Refill [place] MD [address] [place] [address] [address] [phone] [place], [place] [address] (Wo rk) Social History Tobacco Use Types Packs/Day Years Used Date Smoking Tobacco: Every Day Cigarettes 0.8 25 Smokeless Tobacco: Never Comments: 1 pack daily Alcohol Use Standard Drinks/Week Comments No 0 (1 standard drink = 0.6 oz pure alcoho l) 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 Date 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 Miscellaneous Notes Telephone Encounter - Akila Low RN - 11/21/2020 10:23 AM CDT Pending Prescriptions: Disp Refills losartan (COZAAR) 50 MG tablet [Pharmacy M*90 tab*2 Sig: TAKE 1 TABLET BY MOUTH EVERY DAY Routing refill request to provider for review/approval because: BP Readings from Last 3 Encounters: 08/19/20 (!) 148/78 08/14/20 132/84 02/05/20 122/80 Sodium Date Value Ref Range Status 04/04/2019 140 133 - 144 mmol/L Final Creatinine Date Value Ref Range Status 04/04/2019 1.23 0.66 - 1.25 mg/dL Final documented in this encounter Plan of Treatment Not on filedocumented as of this encounter Visit Diagnoses Diagnosis Atrial fibrillation status post cardiove rsion documented in this encounter Additional Health Concerns Assessment Noted Time PHQ-9 Depression Total Score: 19 02/19/2020 1:05 PM CD T documented as of this encounter Care Teams Fourdrinier Operator Relationship Specialty Start Date End Date Leticia Armendariz, PCP - General Internal Medicine 03/17/15 Nahum Lemus MD 09/16/16 [place] [facility] [address] [facility] [address] [place] [id number] Karuna Ramirez MD Cardiology 09/16/16 MD [place]ira Karime Castro, Referring Physician Orthopedics 05/13/17 DO [facility] [address] [facility] [address] [place], [place] [phone] Tito Almonte MD MD Orthopedics 05/13/17 [address] [facility] [address] [place], [place] [phone] Leticia Armendariz, Assigned PCP 12/30/19 02/07/21 [facility] [address] [place], [place] [address] Cristian Cooper MD Assigned Heart and 06/27/20 07/11/21 [address], Vascular Provider [address] [place], [place] [address] Torsten Rodriguez MD Assigned Musculoskeletal 08/24/20 02/19/22 909 [facility] Provider [place], [place] [phone] documented as of this encounter
--- OUTSIDE RECORDS SUMMARY | 2022-06-25 13:48 | XMS_ITS | Encounter Summary ---
:1965 Author Organization [place] Address [address] [place] [address] Care Team Providers Name Role Phone Leticia Armendariz MD Primary Care Provider Nahum Lemus MD Unavailable Karuna Ramirez MD Unavailable [phone] Karime Castro DO Unavailable Tito Almonte MD Unavailable Leticia Armendariz MD Unavailable Cristian Cooper MD Unavailable Reason for Visit Reason Comments Medication Refill Encounter Details Date Type Department Care Team Description 08/13/2020 [facility] Leticia Armendariz, Medication Refill [place] MD [address] [place] [address] [place] [address] [place], [place] [address] (Wo rk) Social History Tobacco Use Types Packs/Day Years Used Date Smoking Tobacco: Every Day Cigarettes 0.8 25 Smokeless Tobacco: Never Comments: 1 pack daily Alcohol Use Standard Drinks/Week Comments No 0 (1 standard drink = 0.6 oz pure alcoho l) 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 Date Recorded 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 OPERATIONS AGENT documented in this encounter Plan of Treatment Not on filedocumented as of this encounter Visit Diagnoses Diagnosis Elevated triglycerides with high cholest [place] Mixed hyperlipidemia documented in this encounter Additional Health Concerns Assessment Noted Time PHQ-9 Depression Total Score: 19 02/19/2020 1:05 PM CD T documented as of this encounter Care Teams Apple Thinner Relationship Specialty Start Date End Date Leticia Armendariz MD PCP - General Internal Medicine 03/17/15 Nahum Lemus MD 09/16/16 [place] [facility] [address] [facility] [address] [place] [phone] Karuna Ramirez MD Cardiology 09/16/16 MD [place] Karime Castro DO Referring Physician Orthopedics 05/13/17 [facility] [address] [facility] [address] [place], [place] [phone] Tito Almonte MD MD Orthopedics 05/13/[address] [place], [place] [phone] Leticia Armendariz MD Assigned PCP 12/30/19 02/07/21 [facility] [address] [place], [place] [phone] Cristian Cooper MD Assigned Heart and 06/27/20 07/11/21 [address] [facility] , [facility] Vascular Provider [address] [place] [address] documented as of this encounter
--- OUTSIDE RECORDS SUMMARY | 2022-06-25 13:48 | XMS_ITS | Encounter Summary ---
:1965 Author Organization [facility] Address [address] [place] [address] Care Team Providers Name Role Phone Leticia Armendariz MD Primary Care Provider Nahum Lemus MD Unavailable Karuna Ramirez MD Unavailable [phone] Karime Castro DO Unavailable Tito Almonte MD Unavailable Leticia Armendariz MD Unavailable Encounter Details Date Type Department Care Team Description 02/05/2020 Travel Social History Tobacco Use Types Packs/Day Years Used Date Smoking Tobacco: Every Day Cigarettes 0.8 25 Smokeless Tobacco: Never Comments: 1 pack daily Alcohol Use Standard Drinks/Week Comments No 0 (1 standard drink = 0.6 oz pure alcoho l) 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 Date 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 Date Recorded In [...] documented as of this encounter Care Teams Communications Tower Technician Relationship Specialty Start Date End Date Leticia Armendariz MD PCP - General Internal Medicine 03/17/15 Nahum Lemus MD 09/16/16 [place] [facility] [address] [facility] [place] [address] Karuna Ramirez MD MD Cardiology 09/16/16 Karime Castro DO Referring Physician Orthopedics 05/13/17 [facility] [address] [facility] [address] [place] [address] Tito Almonte MD MD Orthopedics 05/13/[address] [place], [place] [phone] Leticia Armendariz MD Assigned PCP 12/30/19 02/07/21 [place] [address] [place] [id number] documented as of this encounter
--- OUTSIDE RECORDS SUMMARY | 2022-06-25 13:48 | XMS_ITS | Encounter Summary ---
:1965 Author Organization [facility] Address [address] [place] [address] Care Team Providers Name Role Phone Leticia Armendariz MD Primary Care Provider Nahum Lemus MD Unavailable Karuna Ramirez MD Unavailable [phone] Karime Castro DO Unavailable Tito Almonte MD Unavailable Leticia Armendariz MD Unavailable Reason for Visit Reason Onset Date Comments Refill Request 03/01/2020 Encounter Details Date Type Department Care Team Description 03/01/2020 [facility] Leticia Armendariz, Refill Request [place]ar[place] [address] [place] [address] [place] [address] [place], [place] [address] (Wo rk) Social History Tobacco Use Types Packs/Day Years Used Date Smoking Tobacco: Every Day Cigarettes 0.8 25 Smokeless Tobacco: Never Comments: 1 pack daily Alcohol Use Standard Drinks/Week Comments No 0 (1 standard drink = 0.6 oz pure alcoho l) 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 documented as of this encounter Miscellaneous Notes Telephone Encounter - Mary Pan RN - 03/03/2020 4:14 PM CDT Pending Prescriptions: Disp Refills zolpidem (AMBIEN) 10 MG tablet 30 tab*1 Sig: TAKE 1 TABLET BY MOUTH AT BEDTIME NEEDED Routing refill request to provider for review/approval because: Drug not on the [facility] refill protocol documented in this encounter Plan of Treatment Not on filedocumented as of this encounter Visit Diagnoses Diagnosis Primary insomnia Persistent disorder of initiating or adrianne ntaining sleep documented in this encounter Additional Health Concerns Assessment Noted Time PHQ-9 Depression Total Score: 02/19/2020 1:05 PM CD T documented as of this encounter Care Teams Water Pump Operator Relationship Specialty Start Date End Date Leticia Armendariz MD PCP - General Internal Medicine 03/17/15 Nahum Lemus MD 09/16/16 [place] [facility] [address] [facility] [place] [phone] Karuna Ramirez MD MD Cardiology 09/16/16 Karime Castro DO Referring Physician Orthopedics 05/13/17 [facility] SP[facility]TS MED [address] [facility] [address] [place] [address] Tito Almonte MD MD Orthopedics 05/13/17 [address] [facility] [address] [place] [address] Leticia Armendariz MD Assigned PCP 12/30/19 02/07/21 [place] [address] [place] [phone] documented as of this encounter
--- OUTSIDE RECORDS SUMMARY | 2022-06-25 13:48 | XMS_ITS | Encounter Summary ---
:1965 Author Organization [facility] Address [address] [place] [address] Care Team Providers Name Role Phone Leticia Armendariz MD Primary Care Provider Nahum Lemus MD Unavailable Karuna Ramirez MD Unavailable [phone] Karime Castro DO Unavailable Tito Almonte MD Unavailable Leticia Armendariz MD Unavailable Cristian Cooper MD Unavailable Torsten Rodriguez MD Unavailable Annabelle Shields CNP Unavailable Reason for Visit Reason Comments Medication Refill Encounter Details Date Type Department Care Team Description 12/04/[address] [facility] Leticia Armendariz, Medication Refill [place] [address] [place] [address] 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 [place] [id number] Karuna Ramirez MD Cardiology 09/16/16 MD Erendira Karime Castro, Referring Physician Orthopedics 05/13/17 DO [facility] SP[facility]TS [facility] [address] [facility] [address] [place], [place] [address] Tito Almonte MD MD Orthopedics 05/13/17 [address] [facility] [address] [place], [place] [address] Leticia Armendariz, Assigned PCP 12/30/19 02/07/21 [place] [address] [place] [address] Cristian Cooper MD Assigned Heart and 06/27/20 07/11/21 [address], Vascular Provider [address] [place], [place] [address] Torsten Rodriguez MD Assigned Musculoskeletal 08/24/20 02/19/22 909 [facility] [address] Provider [place], [place] [phone] Annabelle Shields, EDISON Assigned PCP 02/08/21 [address] [place], [place] [phone] documented as of this encounter
--- OUTSIDE RECORDS SUMMARY | 2022-06-25 13:48 | XMS_ITS | Encounter Summary ---
:1965 Author Organization [place] Address [address] [place] [address] Care Team Providers Name Role Phone Leticia Armendariz MD Primary Care Provider Nahum Lemus MD Unavailable Karuna Ramirez MD Unavailable [phone] Karime Castro DO Unavailable Tito Almonte MD Unavailable Leticia Armendariz MD Unavailable Cristian Cooper MD Unavailable Torsten Rodriguez MD Unavailable Annabelle Shields CNP Unavailable Reason for Visit Reason Comments Medication Refill Encounter Details Date Type Department Care Team Description 11/25/2020 Refill [facility] Leticia Armendariz, Medication Refill [place] [address] [place] [address] [address] [phone] [place], [place] [address] (Wo rk) Social History Tobacco Use Types Packs/Day Years Used Date Smoking Tobacco: Every Day Cigarettes 0.8 25 Smokeless Tobacco: Never Comments: 1 pack daily Alcohol Use Standard Drinks/Week Comments No 0 (1 standard drink = 0.6 oz pure alcoho l) 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 Date 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 Miscellaneous Notes Telephone Encounter - Akila Low, RN - 11/27/2020 10:13 AM CDT Pending Prescriptions: Disp Refills amLODIPine (NORVASC) 5 MG tablet [Pharmacy*90 tab*2 Sig: TAKE 1 TABLET BY MOUTH EVERY DAY Routing refill request to provider for review/approval because: BP Readings from Last 3 Encounters: 08/19/20 (!) 148/78 08/14/20 132/84 02/05/20 122/80 Creatinine Date Value Ref Range Status 04/04/2019 1.23 0.66 - 1.25 mg/dL Final documented in this encounter Plan of Treatment Not on filedocumented as of this encounter Visit Diagnoses Diagnosis Atrial fibrillation status post cardiove rsion documented in this encounter Additional Health Concerns Assessment Noted Time PHQ-9 Depression Total Score: 19 02/19/2020 1:05 PM CD T documented as of this encounter Care Teams Warp Preparer Relationship Specialty Start Date End Date Leticia Armendariz, PCP - General Internal Medicine 03/17/15 Nahum Lemus MD 09/16/16 [place] [facility] [address]5 [facility] [place] [address] Karuna Ramirez MD Cardiology 09/16/16 MD [place] Karime Castro, Referring Physician Orthopedics 05/13/17 DO [facility] SP[facility] [address] [facility] [address] [place], [place] [phone] Tito Almonte MD MD Orthopedics 05/13/17 [address] [facility] [address] [place], [place] [address] Leticia Armendariz, Assigned PCP 12/30/19 02/07/21 [facility] [address] [place], [place] [address] Cristian Cooper MD Assigned Heart and 06/27/20 07/11/21 [address], Vascular Provider [address] [place], [place] [address] Torsten Rodriguez MD Assigned Musculoskeletal 08/24/20 02/19/[address] [facility] Provider [place], [place] [phone] Annabelle Shields, EDISON Assigned PCP 02/08/21 [address] [place], [place] [phone] documented as of this encounter
--- OUTSIDE RECORDS SUMMARY | 2022-06-25 13:48 | XMS_ITS | Encounter Summary ---
:1965 Author Organization [place] Address [address] [place] [address] Care Team Providers Name Role Phone Leticia Armendariz MD Primary Care Provider Nahum Lemus MD Unavailable Karuna Ramirez MD Unavailable [phone] Karime Castro DO Unavailable Tito Almonte MD Unavailable Leticia Armendariz MD Unavailable Cristian Cooper MD Unavailable Reason for Referral Consultation (Routine) - Closed Specialty Diagnoses / Procedures Referred By Contact Refer red To Contact Diagnoses Bilateral primary osteoarthritis of hip Karime Castro DO [facility] [address] [address] Referral ID Status Reason Start Date Expiration Date Visits Requ ested Visits Authorized [id number] Closed 08/14/2020 08/14/2021 1 1 NCIAL SERVICES REPRESENTATIVE Diagnostic Imaging XR (Routine) - Closed Specialty Diagnoses / Procedures Referred By Contact Refer red To Contact Diagnoses Chronic hip pain, bilateral Karime Castro DO Procedures XR Pelvis and Hip Bilateral 2 Views [facility] [address] [address] Referral ID Status Reason Start Date Expiration Date Visits Requ ested Visits Authorized [id number] Closed 08/14/2020 08/14/2021 1 1 NCIAL SERVICES REPRESENTATIVE Reason for Visit Reason Comments Pain Pain Encounter Details Date Type Department Care Team Description 08/14/2020 Office Visit [facility] Karime Castro Chronic hip pain, bilateral (Primary Dx); Sports Medicine DO Irina Bilateral primary osteoarthritis of hip Clinic [facility] [id number] [place] [address] [employer] [address] [place] [id number] (Wo rk) Social History Tobacco Use Types Packs/Day Years Used Date Smoking Tobacco: Every Day Cigarettes 0.8 25 Smokeless Tobacco: Never Tobacco Cessation: Ready to Quit: No; Co unseling Given: Yes Comments: 1 pack daily Alcohol Use Standard Drinks/Week Comments No 0 (1 standard drink = 0.6 oz pure alcoho l) 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 Date Recorded Male 08/13/2020 9:06 AM 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 documented as of this encounter Last Filed Vital Signs Vital Sign Reading Time Taken Comments Blood Pressure 132/84 08/14/2020 11:24 AM FINANCIAL SERVICES REPRESENTATIVE Pulse - - Temperature - - Respiratory Rate - - Oxygen Saturation - - Inhaled Oxygen Concentration - - Weight 93 kg (205 lb) 08/14/2020 11:24 AM FINANCIAL SERVICES REPRESENTATIVE pt repor marcela Height 177.8 cm (5' 10) 08/14/2020 11:24 AM FINANCIAL SERVICES REPRESENTATIVE Body Mass Index 29.41 08/14/2020 11:24 AM FINANCIAL SERVICES REPRESENTATIVE documented in this encounter Patient Instructions Patient InstructionsKarime Castro DO - 08/14/2020 11:00 AM CST 1. Chronic hip pain, bilateral 2. Bilateral primary osteoarthritis of hip Reviewed xrays - impingement and mild arthritis Given how much pain you're in recommend labwork to evaluate for inflammatory causes. These have beenordered and I will let you know through [facility] Recommend getting your post-surgical MRI from Dr. Sandoval and dropping off for Dr. Rodriguez Referral placed to Dr. Rodriguez to discuss your hips Follow-up with Dr. Rodriguez NCIAL SERVICES REPRESENTATIVE documented in this encounter Progress Notes Karime Castro DO - 08/14/2020 11:00 AM CST ASSESSMENT & PLAN 1. Chronic hip pain, bilateral 2. Bilateral primary osteoarthritis of hip Reviewed xrays - impingement and mild arthritis Given how much pain you're in recommend labwork to evaluate for inflammatory causes. These have beenordered and I will let you know through [facility] Recommend getting your post-surgical lumbar MRI from Dr. Sandoval and dropping off for Dr. Rodriguez Referral placed to Dr. Rodriguez to discuss your hips Follow-up with Dr. Rodriguez ----- SUBJECTIVE Feng Perez is a/an 55 year old male who is seen in consultation at the request of Leticia Armendariz M.D. for evaluation of bilateral hip pain. The patient is seen by themselves. Onset: years. Reports insidious onset without acute precipitating event. Has been evaluated by ([facility]) and at [facility]. Location of Pain: bilateral groin (right side worse than left side), right lateral hip, right sided low back Rating of Pain at worst: 12/10 Rating of Pain Currently: 5/10 Worsened by: bending forward, walking, turning over in bed, prolonged sitting then transitioning from sit to stand Better with: nothing Treatments tried: rest/activity avoidance, ibuprofen, other medications: Cyclobenzaprine (Flexeril) and previous imaging (MRI 02/01/2019 - lumbar spine, MRI 05/02/2017 left hip) and xray 11/30/2018 - bilateral hips), most recent: XR guided bilateral hip intra articular CSI 11/09/2017 - which provided minimal relief, Right L5-S1 transforaminal LUZ 02/21/2019 which provided minimal relief Quality: stiffness, sharp, shooting / stabbing into right lower back Associated symptoms: shooting pain right lower back Orthopedic history: YES - chronic low back pain Relevant surgical history: YES - lumbar microdiscectomy 04/2019 which provided great relief (was having crippling midline lower back pain and radiating pain and numbness in right foot), cervical fusion 2013 (Dr. 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 REVIEW OF SYSTEMS: 10 point ROS is negative other than symptoms noted above in HPI, Past Medical History or as stated below Constitutional: NEGATIVE for fever, chills, change in weight Skin: NEGATIVE for worrisome rashes, moles or lesions GI/: NEGATIVE for bowel or bladder changes Neuro: NEGATIVE for weakness, dizziness or paresthesias OBJECTIVE: BP 132/84 Ht 1.778 m (5' 10) Wt 93 kg (205 lb) BMI 29.41 kg/m?? General: healthy, alert and in moderate distress due to pain HEENT: no scleral icterus or conjunctival erythema Skin: no suspicious lesions or rash. No jaundice. CV: no pedal edema Resp: normal respiratory effort without conversational dyspnea Psych: normal mood and affect Gait: extremely slow to rise from chair and to achieve hip extension, in significant amount of distress to walk to and get up onto the exam table Neuro: Normal light sensory exam of bilateral lower extremity MSK: BILATERAL HIP Inspection: Uneven pelvis, extremely difficult to ambulate due to pain Palpation: Tender about the anterior groin/joint line, SI joint and sciatic notch. Otherwise all other landmarks are nontender. Active Range of Motion: Flexion limited by pain, IR limited by pain, ER limited by pain Strength: Flexion 5-/5 Special Tests: Positive: anterior impingement (FADIR), slump (increased back pain) Independent visualization of the below image: Recent Results (from the past 24 hour(s)) XR Pelvis and Hip Bilateral 2 Views Narrative PELVIS AND BILATERAL HIPS, TWO VIEWS 08/14/2020 11:48 AM HISTORY: Chronic hip pain, bilateral. COMPARISON: 04/28/2017 Impression IMPRESSION: Mild bilateral hip osteoarthritis. There is bony convexity at the lateral femoral head-neck junction regions bilaterally. This can predispose to femoroacetabular impingement, and clinical correlation is recommended. XR Bilateral Hips 11/30/2018 Result Impression IMPRESSION: Mild to moderate right, mild left hip osteoarthritis. Result Narrative EXAM: DX HIPS AND PELVIS BILATERAL 3-4 VIEWS COMPARISON: None FINDINGS: Mild to moderate osteoarthritis of the right hip. Mild osteoarthritis of the left hip. No fracture or dislocation. No suspicious osseous lesion. MR HIP LEFT WITHOUT CONTRAST 05/02/2017 10:22 AM ?? HISTORY: Several years of bilateral hip pain. ?? COMPARISON: A CT of the abdomen and pelvis which included the hips on 04/20/2017. That examination demonstrated a dense calcification or ossification in the medial aspect of the left hip joint. ?? TECHNIQUE: Coronal T1 and STIR. Transverse T1 and T2 fat suppression. Sagittal T1. ?? FINDINGS: ?? Osseous and Cartilaginous Structures: No fracture or osseous lesion is demonstrated. No femoral head osteonecrosis. No abnormal marrow signal intensity is identified. No significant hip osteoarthritis or apparent chondromalacia. ?? Acetabular Labrum: No juxtaacetabular cyst. No obvious labral tear is appreciated, allowing for the large field of view technique. If indicated clinically, MR arthrography would be considered the study of choice to evaluate the labrum. ?? Hip joint space: No significant joint effusion. In the medial aspect of the left hip joint, there is a 1.0 cm diameter focus of decreased signal intensity on all pulse sequences. This corresponds to the calcific densities seen on the recent CT. No other intra-articular filling defect is identified. ?? Trochanteric and Iliopsoas Bursae: No fluid collection in the trochanteric or iliopsoas bursae. ?? Common Hamstring Tendon: No evidence of tear or significant tendinosis. ?? Additional Findings: The muscles are symmetric and demonstrate normal signal intensity. No adjacent soft tissues pathology is seen. ?? IMPRESSION: There is a 1.0 cm calcified body within the medial aspect of the left hip joint corresponding to the abnormality on the recent CT. This likely represents a loose body, although the origin is not identified. ?? SARAH BRAVO MD XR Lumbar Spine 01/20/2019 Result Narrative EXAM: DX LUMBAR SPINE 2-3 VIEWS Other Result Information Interface, [facility] Generic [id number] - 01/20/2019 7:28 PM CDT EXAM: DX LUMBAR SPINE 2-3 VIEWS IMPRESSION: Pseudoarthrosis of left L5 transverse process with left S1. Slight lateral curvature convex to the right. Slight retrolisthesis L2-L3. No fracture. There is multilevel disc height loss, disc endplate spurring, and facet hypertrophy from degenerative lumbar spondylosis. MRI Lumbar Spine 02/01/2019 - before microdisc Interface, [facility] Generic [id number] - 02/01/2019 8:25 AM CDT EXAM: MR LUMBAR SPINE WITHOUT IV CONTRAST COMPARISON: X-ray January 20, 2019 FINDINGS: Lumbar vertebral bodies are normal in stature. Slight degenerative grade 1 retrolisthesis of L4-5. No suspicious bone marrow signal abnormality. The conus is normal in position and morphology. Partially imaged right renal cyst. Multilevel lumbar spine degenerative changes are detailed below: L1-2: Noncontributory. L2-3: Small broad-based disc bulge. Facet arthropathy. Mild spinal canal stenosis. Mild bilateral neuroforaminal stenosis. L3-4: Small broad-based disc bulge and annular fissure. Facet arthropathy. Mild spinal canal stenosis. Mild to moderate bilateral neuroforaminal stenosis. L4-5: Broad-based disc bulge with superimposed right paracentral disc protrusion which severely narrows the lateral recess, abutting and potentially impinging the right L5 nerve root (series 8 images #[id number]). Facet arthropathy. Mild central canal stenosis. Mild bilateral neuroforaminal stenosis. L5-S1: Right paracentral disc protrusion moderately narrows the right lateral recess with potential abutment of the right S1 nerve root (series 8 images #22). Facet arthropathy. Mild central canal stenosis. Mild bilateral neuroforaminal stenosis. For the purpose of this report, 5 lumbar type vertebral bodies are assumed. Close radiographic correlation recommended prior to any spinal intervention or surgery. IMPRESSION: Lumbar disc and joint degeneration with right paracentral disc protrusions at L4-5 and L5-S1 potentially affecting the L5 and S1 nerve roots respectively. Karime Castro DO [facility] NCIAL SERVICES REPRESENTATIVE documented in this encounter Plan of Treatment Scheduled Referrals Name Type Priority Associated Diagnoses Order S chedule Orthopedic & Spine Referral Routine Bilateral primary Expe cted: Lead Cashier Referral osteoarthritis of hip 08/14/2020, Expires: 2020 documented as of this encounter Results Rheumatoid factor (08/22/2020 3:26 PM FINANCIAL SERVICES REPRESENTATIVE) athologist Signature Rheumatoid <7 <12 IU/mL 08/25/2020 [facility] 1:21 PM FINANCIAL SERVICES REPRESENTATIVE [facility] Specimen Anatomical Collection Method Collection Time Receive d Time (Source) Location / / Volume Laterality Blood specimen 08/22/2020 3:26 PM 020 3:31 (specimen) FINANCIAL SERVICES REPRESENTATIVE PM FINANCIAL SERVICES REPRESENTATIVE [facility] LAB - BLOOD ORDERABLES Performing Organization Address City/State/ZIP Code Phon e Number [facility] [address] [place] [address] [facility] Erythrocyte sedimentation rate auto (08/22/2020 3:26 PM FINANCIAL SERVICES REPRESENTATIVE) athologist Signature Sed Rate 5 0 - 20 mm/h 08/22/2020 [facility] 3:58 PM [facility] Specimen Anatomical Collection Method Collection Time Receive d Time (Source) Location / / Volume Laterality Blood specimen 08/22/2020 3:26 PM 020 3:31 (specimen) FINANCIAL SERVICES REPRESENTATIVE PM FINANCIAL SERVICES REPRESENTATIVE [facility] - BLOOD ORDERABLES Performing Organization Address City/State/ZIP Code Phon e Number [facility] [address] [place], [place] [address] [address] CBC with platelets differential (08/22/2020 3:26 PM FINANCIAL SERVICES REPRESENTATIVE) [facility] Method Time Signature WBC 10.5 4.0 - 08/22/2020 [facility] 11.0 3:46 PM [facility] 10e9/L [place] RBC Count 4.89 4.4 - 5.9 08/22/2020 [facility] 10e12/L 3:46 PM [facility] Hemoglobin 15.3 13.3 - 08/22/2020 [facility] 17.7 g/dL 3:46 PM [facility] Hematocrit 44.9 40.0 - 08/22/2020 [facility] 53.0 % 3:46 PM [facility] MCV 92 78 - 100 08/22/2020 [facility] fl 3:46 PM [facility] MCH 31.3 26.5 - 08/22/2020 [facility] 33.0 pg 3:46 PM [facility] MCHC 34.1 31.5 - 08/22/2020 [facility] 36.5 g/dL 3:46 PM [facility] RDW 12.7 10.0 - 08/22/2020 [facility] 15.0 % 3:46 PM [facility] Platelet Count 236 150 - 450 08/22/2020 [facility] 10e9/L 3:46 PM [facility] % Neutrophils 69.8 % 08/22/2020 [facility] 3:46 PM [facility] % Lymphocytes 19.5 % 08/22/2020 [facility] 3:46 PM FINANCIAL SERVICES REPRESENTATIVE [facility] % Monocytes 8.9 % 08/22/2020 [facility] 3:46 PM FINANCIAL SERVICES REPRESENTATIVE [facility] % Eosinophils 1.2 % 08/22/2020 [facility] 3:46 PM [facility] % Basophils 0.6 % 08/22/2020 [facility] 3:46 PM [facility] Absolute 7.3 1.6 - 8.3 08/22/2020 [facility] Neutrophil 10e9/L 3:46 PM [facility] Absolute 2.0 0.8 - 5.3 08/22/2020 [facility] Lymphocytes 10e9/L 3:46 PM [facility] Absolute 0.9 0.0 - 1.3 08/22/2020 [facility] Monocytes 10e9/L 3:46 PM [facility] Absolute 0.1 0.0 - 0.7 08/22/2020 [facility] Eosinophils 10e9/L 3:46 PM [facility] Absolute 0.1 0.0 - 0.2 08/22/2020 [facility] Basophils 10e9/L 3:46 PM [facility] Diff Method Automated 08/22/2020 [facility] Method 3:46 PM [facility] Specimen Anatomical Collection Method Collection Time Receive d Time (Source) Location / / Volume Laterality Blood specimen 08/22/2020 3:26 PM 020 3:31 (specimen) FINANCIAL SERVICES REPRESENTATIVE PM FINANCIAL SERVICES REPRESENTATIVE Karime Castro DO LAB - BLOOD ORDERABLES Performing Organization Address City/State/ZIP Code Phon e Number [facility] [address] [place], [place] [address] [address] CRP inflammation (08/22/2020 3:26 PM FINANCIAL SERVICES REPRESENTATIVE) Analysis Performed At Patho logist Time [facility] CRP Inflammation <2.9 0.0 - 8.0 08/22/2020 [facility] mg/L 9:42 PM FINANCIAL SERVICES REPRESENTATIVE [facility] Specimen Anatomical Collection Method Collection Time Receive d Time (Source) Location / / Volume Laterality Blood specimen 08/22/2020 3:26 PM 020 3:31 (specimen) FINANCIAL SERVICES REPRESENTATIVE PM FINANCIAL SERVICES REPRESENTATIVE Karime Castro DO LAB - BLOOD ORDERABLES Performing Organization Address City/State/ZIP Code Phon e Number [facility] [address] [place] [address] [facility] XR Pelvis and Hip Bilateral 2 Views (08/14/2020 11:48 AM FINANCIAL SERVICES REPRESENTATIVE) Anatomical Region Laterality Modality Hip, Abdomen/Pelvis Bilateral Computed Radiography Specimen (Source) Anatomical Location Collection Method / Collectio n Time Received Time / Laterality Volume Impressions 08/14/2020 3:48 PM FINANCIAL SERVICES REPRESENTATIVE IMPRESSION: Mild bilateral hip osteoarthritis. There is bony convexity at the lateral femoral head-neck junctio n regions bilaterally. ??This can predispose to femoroacetabular impin gement, and clinical correlation is recommended. SYLVESTER CASILLAS MD Narrative 08/14/2020 3:48 PM FINANCIAL SERVICES REPRESENTATIVE PELVIS AND BILATERAL HIPS, TWO VIEWS ?? 08/14/2020 11:48 AM HISTORY: ??Chronic hip pain, bilateral. COMPARISON: ??04/28/2017 Procedure Note Sylvester Casillas MD - 08/14/2020Formatting o f this note might be different from the original. PELVIS AND BILATERAL HIPS, TWO VIEWS 06/2020 11:48 AM HISTORY: Chronic hip pain, bilateral. COMPARISON: 04/28/2017 IMPRESSION: Mild bilateral hip osteoarth ritis. There is bony convexity at the lateral femoral head-neck junctio n regions bilaterally. This can predispose to femoroacetabular impin gement, and clinical correlation is recommended. SYLVESTER CASILLAS MD Karime Castro DO [facility] ORDER WHITNEY documented in this encounter Visit Diagnoses Diagnosis Chronic hip pain, bilateral - Primary Bilateral primary osteoarthritis of hip Chronic hip pain, bilateral documented in this encounter Additional Health Concerns Assessment Noted Time PHQ-9 Depression Total Score: 19 02/19/2020 1:05 PM CD T documented as of this encounter Care Teams Processing Associate Relationship Specialty Start Date End Date Leticia Armendariz MD PCP - General Internal Medicine 03/17/15 Nahum Lemus MD 09/16/16 [facility] [address] [place] [id number] Karuna Ramirez MD Cardiology 09/16/16 MD Erendira Karime Castro DO Referring Physician Orthopedics 05/13/17 [facility] [address] [facility] [address] [place], [place] [phone] Tito Almonte MD MD Orthopedics 05/13/[address] [place], [place] [id number] Leticia Armendariz MD Assigned PCP 12/30/19 02/07/21 [facility] [address] [place], [place] [phone] Cristian Cooper MD Assigned Heart and 06/27/20 07/11/21 [address], [facility] Vascular Provider [address] [place], [place] [phone] documented as of this encounter
--- OUTSIDE RECORDS SUMMARY | 2022-06-25 13:48 | XMS_ITS | Encounter Summary ---
:1965 Author Organization [place] Address [address] [place] [address] Care Team Providers Name Role Phone Leticia Armendariz MD Primary Care Provider Nahum Lemus MD Unavailable Karuna Ramirez MD Unavailable Karime Castro DO Unavailable Tito Almonte MD Unavailable Leticia Armendariz MD Unavailable Cristian Cooper MD Unavailable Torsten Rodriguez MD Unavailable Reason for Visit Reason Comments Medication Refill Encounter Details Date Type Department Care Team Description 12/30/2020 Refill [facility] Nabila Medley ba, Medication Refill Demarco [facility] [address] [place] [address] Social History Tobacco Use Types Packs/Day Years Used Date Smoking Tobacco: Every Day Cigarettes 0.8 25 Smokeless Tobacco: Never Comments: 1 pack daily Alcohol Use Standard Drinks/Week Comments No 0 (1 standard drink = 0.6 oz pure alcoho l) 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 Date Recorded 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 Telephone Encounter - Leticia Armendariz MD - 01/01/2021 12:30 PM CDT Due for appointment. Telephone Encounter - Akila Low RN - 01/01/2021 11:48 AM CDT Pending Prescriptions: Disp Refills sertraline (ZOLOFT) 50 MG tablet [Pharmacy*30 tab*0 Sig: TAKE 1 TABLET BY MOUTH [...] documented as of this encounter Care Teams Candy Polisher Relationship Specialty Start Date End Date Leticia Armendariz, PCP - General Internal Medicine 03/17/15 Nahum Lemus MD 09/16/16 [place] [facility] [address] [facility] [place] [address] Karuna Ramirez MD Cardiology 09/16/16 MD Erendira Karime Castro, Referring Physician Orthopedics 05/13/17 DO [facility] [address] [facility] [address] [place] [address] Tito Almonte MD MD Orthopedics 05/13/17 [address] [place] [address] Leticia Armendariz, Assigned PCP 12/30/19 02/07/21 [facility] [address] [place] [address] Cristian Cooper MD Assigned Heart and 06/27/20 07/11/21 [address], Vascular Provider [address] [place] [address] Torsten Rodriguez MD Assigned Musculoskeletal 08/24/20 02/19/22 [address] [facility] [place] [address] documented as of this encounter
--- OUTSIDE RECORDS SUMMARY | 2022-06-25 13:49 | XMS_ITS | Encounter Summary ---
:1965 Author Organization [facility] Address [address] [place] [address] Care Team Providers Name Role Phone Leticia Armendariz MD Primary Care Provider Nahum Lemus MD Unavailable Karuna Ramirez MD Unavailable [phone] Karime Castro DO Unavailable Tito Almonte MD Unavailable Ro Reyna NP Unavailable Reason for Visit Reason Comments Pre-Op Exam back surgery 04/12/2019 Encounter Details Date Type Department Care Team Description [facility] (Primary Dx[facility] [place] Preop general physical exam [address] [place] [address] [phone] Social History Tobacco Use Types Packs/Day Years Used Date Smoking Tobacco: Every Day Cigarettes 0.8 25 Smokeless Tobacco: Never Tobacco Cessation: Ready to Quit: No; Co unseling Given: No Comments: 1 pack daily Alcohol Use Standard Drinks/Week Comments No 0 (1 standard drink = 0.6 oz pure alcoho l) 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 Date Recorded 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 documented as of this encounter Last Filed Vital Signs Vital Sign Reading Time Taken Comments Blood Pressure 140/89 04/04/2019 3:28 PM CDT Pulse 95 04/04/2019 3:28 PM CDT Temperature 36.7 ??C (98.1 ??F) 04/04/2019 3:28 PM CDT Respiratory Rate 18 04/04/2019 3:28 PM CDT Oxygen Saturation 97% 04/04/2019 3:28 PM CDT Inhaled Oxygen Concentration - - Weight 94 kg (207 lb 3.2 oz) 04/04/2019 3:28 PM CDT Height 177.8 cm (5' 10) 04/04/2019 3:28 PM CDT Body Mass Index 29.73 04/04/2019 3:28 PM CDT documented in this encounter Patient Instructions Patient InstructionsMoLubna dale - 04/04/2019 3:00 PM CDT Before Your Surgery ??? Call your surgeon if there is any change in your health. This includes signs of a cold or flu (such as a sore throat, runny nose, cough, rash or fever). ??? Do not smoke, drink alcohol or take over the counter medicine (unless your surgeon or primary care doctor tells you to) for the 24 hours before and after surgery. ??? If you take prescribed drugs: Follow your doctor???s orders about which medicines to take and which to stop until after surgery. ??? Eating and drinking prior to surgery: follow the instructions from your surgeon ??? Take a shower or bath the night before surgery. Use the soap your surgeon gave you to gently clean your skin. If you do not have soap from your surgeon, use your regular soap. Do not shave or scrubthe surgery site. Wear clean pajamas and have clean sheets on your bed. documented in this encounter Progress Notes Ro Reyna NP - 04/04/2019 3:00 PM CDT [place] [address] [facility] [address] Dept: [phone] PRE-OP EVALUATION: Today's date: 04/04/2019 Feng Perez (: 1965) presents for pre-operative evaluation assessment as requested by Dr. Rj Sandoval. He requires evaluation and anesthesia risk assessment prior to undergoing surgery/procedure for treatment of L4-5, L5-S1 discectomy . Fax number for surgical facility: [facility] Primary Physician: Leticia Armendariz Type of Anesthesia Anticipated: General Patient has a Health Care Directive or Living Will: NO Preop Questions 04/04/2019 Who is doing your surgery? Dr Sandoval What are you having done? back surgery Date of Surgery/Procedure: April 12 2019 Facility or Hospital where procedure/surgery will be performed: [facility] 1. Do you have a history of Heart attack, stroke, stent, coronary bypass surgery, or other heart surgery? No 2. Do you ever have any pain or discomfort in your chest? No 3. Do you have a history of Heart Failure? No 4. Are you troubled by shortness of breath when: walking on a level surface, or up a slight hill, orat night? No 5. Do you currently have a cold, bronchitis or other respiratory infection? No 6. Do you have a cough, shortness of breath, or wheezing? No 7. Do you sometimes get pains in the calves of your legs when you walk? UNKNOWN - 8. Do you or anyone in your family have previous history of blood clots? UNKNOWN - 9. Do you or does anyone in your family have a serious bleeding problem such as prolonged bleeding following surgeries or cuts? No 10. Have you ever had problems with anemia or been told to take iron pills? No 11. Have you had any abnormal blood loss such as black, tarry or bloody stools? No 12. Have you ever had a blood transfusion? No 13. Have you or any of your relatives ever had problems with anesthesia? UNKNOWN - 14. Do you have sleep apnea, excessive snoring or daytime drowsiness? YES - snoring 15. Do you have any prosthetic heart valves? No 16. Do you have prosthetic joints? No HPI: HPI related to upcoming procedure: lumbar discectomy See problem list for active medical problems. Problems all longstanding and stable, except as noted/documented. See ROS for pertinent symptoms related to these conditions. MEDICAL HISTORY: Patient Active Problem List Diagnosis Date Noted ??? Primary insomnia 01/03/2018 Priority: Medium ??? [...] Haven Sosa MD; Location: [facility] ??? FUSION CERVICAL ANTERIOR ONE LEVEL 04/15/2014 Procedure: FUSION CERVICAL ANTERIOR ONE LEVEL; Surgeon: Umang Sandoval MD; Location: [facility] ??? GENITOURINARY SURGERY vasectomy ??? HERNIORRHAPHY INGUINAL Left 07/21/2018 Procedure: open left inguinal hernia repair with mesh; Surgeon: Jono Delarosa MD; Location: [facility] ??? TESTICLE SURGERY ??? VASECTOMY ??? VASOVASOSTOMY Current Outpatient Medications Medication Sig Dispense Refill ??? amLODIPine (NORVASC) 5 MG tablet TAKE 1 TABLET BY MOUTH EVERY DAY 90 tablet 2 ??? cyclobenzaprine (FLEXERIL) 10 MG tablet Take 1 tablet (10 mg) by mouth 3 times daily as needed for muscle spasms 40 tablet 0 ??? fenofibrate (TRICOR) 48 MG tablet TAKE 2 TABLETS (96 MG) BY MOUTH DAILY 180 tablet 1 ??? losartan (COZAAR) 50 MG tablet TAKE 1 TABLET BY MOUTH EVERY DAY 90 tablet 1 ??? omeprazole (PRILOSEC) 20 MG CR capsule Take 20 mg by mouth daily ??? tamsulosin (FLOMAX) 0.4 MG capsule Take 1 capsule (0.4 mg) by mouth daily 90 capsule 3 ??? zolpidem (AMBIEN) 10 MG tablet TAKE 1 TABLET BY MOUTH AT BEDTIME NEEDED 30 tablet 1 OTC products: None, except as noted above No Known Allergies Latex Allergy: NO Social History Tobacco Use ??? Smoking status: Current Every Day Smoker Packs/day: 0.75 Years: 25.00 Pack years: 18.75 Types: Cigarettes ??? Smokeless tobacco: Never Used ??? Tobacco comment: 1 pack daily Substance Use Topics ??? Alcohol use: No Alcohol/week: 0.0 oz History Drug Use No Comment: clean for 13 years- cocaine REVIEW OF SYSTEMS: CONSTITUTIONAL: NEGATIVE for fever, chills, change in weight ENT/MOUTH: NEGATIVE for ear, mouth and throat problems RESP: NEGATIVE for significant cough or SOB CV: NEGATIVE for chest pain, palpitations or peripheral edema GI: NEGATIVE for nausea, abdominal pain, heartburn, or change in bowel habits : NEGATIVE for frequency, dysuria, or hematuria MUSCULOSKELETAL: NEGATIVE for significant arthralgias or myalgia NEURO: NEGATIVE for weakness, dizziness or paresthesias ENDOCRINE: NEGATIVE for temperature intolerance, skin/hair changes HEME: NEGATIVE for bleeding problems PSYCHIATRIC: NEGATIVE for changes in mood or affect EXAM: There were no vitals taken for this visit. GENERAL APPEARANCE: healthy, alert and no distress RESP: lungs clear to auscultation - no rales, rhonchi or wheezes CV: regular rates and rhythm, normal S1 S2, no S3 or S4 and no murmur, click or rub ABDOMEN: soft, nontender, no HSM or masses and bowel sounds normal MS: extremities normal- no gross deformities noted, no evidence of inflammation in joints, FROM in all extremities. NEURO: Normal strength and tone, sensory exam grossly normal, mentation intact and speech normal PSYCH: mentation appears normal. and affect normal/bright DIAGNOSTICS: EKG: appears normal, NSR Recent Labs Lab Test 07/17/18 0919 07/07/18 1155 HGB 15.6 15.8 PLT 227 203 NA 142 140 POTASSIUM 4.1 4.3 CR 1.04 1.06 IMPRESSION: Reason for surgery/procedure: lumbar discectomy The proposed surgical procedure is considered INTERMEDIATE risk. REVISED CARDIAC RISK INDEX The patient has the following serious cardiovascular risks for perioperative complications such as (AL, PE, VFib and 3?? AV Block): No serious cardiac risks INTERPRETATION: 0 risks: Class I (very low risk - 0.4% complication rate) The patient has the following additional risks for perioperative complications: No identified additional risks ICD-10-CM 1. Pre-op exam Z01.818 EKG 12-lead complete w/read - Clinics 2. Preop general physical exam Z01.818 (Z01.818) Pre-op exam (primary encounter diagnosis) Comment: Plan: EKG 12-lead complete w/read - Clinics, CBC with platelets, Basic metabolic panel RECOMMENDATIONS: --Consult hospital rounder / IM to assist post-op medical management --Patient is to take all scheduled medications on the day of surgery EXCEPT for modifications listedbelow. APPROVAL GIVEN to proceed with proposed procedure, without further diagnostic evaluation Signed Electronically by: Ro Reyna NP Copy of this evaluation report is provided to requesting physician. [facility] Preop Guidelines Revised Cardiac Risk Index documented in this encounter Nursing Notes [facility] Schmid - 04/04/2019 3:00 PM CDT BP (!) 140/89 (BP Location: Right arm, Patient Position: Sitting, Cuff Size: Adult Large) Pulse 95 Temp 98.1 ??F (36.7 ??C) (Oral) Resp 18 Ht 1.778 m (5' 10) Wt 94 kg (207 lb 3.2 oz) SpO2 97% BMI 29.73 kg/m?? Patient is here for a pre op exam back surgery on 04/12/2019 documented in this encounter Plan of Treatment Not on filedocumented as of this encounter Procedures Procedure Name Priority Date/Time Associated Diagnosis Comme nts BASIC METABOLIC Routine 04/04/2019 3:43 PM Pre-op exam Result s for this PANEL CDT procedure are i n the results section. CBC WITH PLATELETS Routine 04/04/2019 3:43 PM Pre-op exam Res ults for this CDT procedure are i n the results section. EKG 12-LEAD Routine 04/04/2019 3:24 PM Pre-op exam Results f or this COMPLETE W/READ - CDT procedure are in CLINICS the results section. documented in this encounter Results Basic metabolic panel (04/04/2019 3:43 PM CDT) P athologist Signature Sodium 140 133 - 144 04/05/2019 [facility] mmol/L 1:[address] [facility] Potassium 4.2 3.4 - 5.3 04/05/2019 [facility] mmol/L 1:[address] [facility] Chloride 107 94 - 109 04/05/2019 [facility] mmol/L 1:[address] [facility] Carbon Dioxide 29 20 - 32 04/05/2019 [facility] mmol/L 1:[address] [facility] Anion Gap 4 3 - 14 04/05/2019 [facility] mmol/L 1:[address] [facility] Glucose 73 70 - 99 04/05/2019 [facility] mg/dL 1:[address] [facility] Comment: Non Fasting Urea Nitrogen 9 7 - 30 mg/dL 04/05/2019 1:49 PM T [facility] Creatinine 1.23 0.66 - 1.25 mg/dL 04/05/2019 1:49 PM CD T [facility] GFR Estimate 66 >60 04/05/2019 1:49 PM T [facility] mL/min/{1.73_m2} [place] [facility] [place] Comment: Non GFR Calc Starting 08/22/2018, serum creatinine ba sed estimated GFR (eGFR) will be calculated using the Chronic Kidney Dise [facility] Epidemiology Collaboration (CKD-EPI) equation. GFR Estimate If 77 >60 mL/min/{1.73_m2} 04/05/2019 1: [address] [facility] Black [facility] Comment: GFR Calc Starting 08/22/2018, serum creatinine ba sed estimated GFR (eGFR) will be calculated using the Chronic Kidney Dise [facility] Epidemiology Collaboration (CKD-EPI) equation. Calcium 8.9 8.5 - 10.1 mg/dL 04/05/2019 1:49 PM T [facility] Specimen Anatomical Collection Method Collection Time Receive d Time (Source) Location / / Volume Laterality Blood specimen 04/04/2019 3:43 PM 019 3:44 (specimen) CDT PM CDT Ro Reyna CLINICAL SALES CONSULTANT LAB - BLOOD ORDERABLES Performing Organization Address City/State/ZIP Code Phon e Number [facility] [place] [address] [place] [address] CBC with platelets (04/04/2019 3:43 PM CDT) athologist Signature WBC 8.8 4.0 - 11.0 04/04/2019 [facility] 10e9/L 4:22 PM CDT [facility] [place] RBC Count 5.13 4.4 - 5.9 04/04/2019 [facility] 10e12/L 4:22 PM CDT [facility] [place] Hemoglobin 15.8 13.3 - 04/04/2019 [facility] 17.7 g/dL 4:22 PM CDT [facility] Hematocrit 46.7 40.0 - 04/04/2019 [facility] 53.0 % 4:22 PM CDT [facility] MCV 91 78 - 100 04/04/2019 [facility] fl 4:22 PM CDT [facility] [place] MCH 30.8 26.5 - 04/04/2019 [facility] 33.0 pg 4:22 PM CDT [facility] [place] MCHC 33.8 31.5 - 04/04/2019 [facility] 36.5 g/dL 4:22 PM CDT [facility] RDW 13.0 10.0 - 04/04/2019 [facility] 15.0 % 4:22 PM CDT [facility] Platelet Count 235 150 - 450 04/04/2019 [facility] 10e9/L 4:22 PM CDT [facility] Specimen Anatomical Collection Method Collection Time Receive d Time (Source) Location / / Volume Laterality Blood specimen 04/04/2019 3:43 PM 019 3:44 (specimen) CDT PM CDT Ro Reyna CLINICAL SALES CONSULTANT LAB - BLOOD ORDERABLES Performing Organization Address City/State/ZIP Code Phon e Number [facility] [address] [place], [place] [address] [address] EKG 12-lead complete w/read - Clinics (04/04/2019 3:24 PM CDT) Narrative This result has an attachment that is no t available. Ro Reyna CLINICAL SALES CONSULTANT ECG ORDERABLES documented in this encounter Visit Diagnoses Diagnosis Pre-op exam - Primary Preoperative examination, unspecified Preop general physical exam Other specified pre-operative examinatio n documented in this encounter Additional Health Concerns Assessment Noted Time PHQ-9 Depression Total Score: 0 06/10/2018 7:05 AM CDT documented as of this encounter Care Teams Corporate Officer Relationship Specialty Start Date End Date Leticia Armendariz MD PCP - General Internal Medicine 03/17/15 Nahum Lemus MD 09/16/16 [place] GASTROENTEROLOG[facility] [address] [facility] [place] [address] Karuna Ramirez MD MD Cardiology 09/16/16 Karime Castro DO Referring Physician Orthopedics 05/13/17 [facility] [address] [phone] Tito Almonte MD MD Orthopedics 05/13/17 [address] [facility] [address] [place], [place] [id number] Ro Reyna NP Assigned PCP 01/07/19 08/25/19 [address] [place] [address] documented as of this encounter
--- OUTSIDE RECORDS SUMMARY | 2022-06-25 13:49 | XMS_ITS | Encounter Summary ---
:1965 Author Organization [facility] Address [address] [place] [address] Care Team Providers Name Role Phone Leticia Armendariz MD Primary Care Provider Nahum Lemus MD Unavailable Karuna Ramirez MD Unavailable [phone] Karime Castro DO Unavailable Tito Almonte MD Unavailable Leticia Armendariz MD Unavailable Encounter Details Date Type Department Care Team Description [facility] [address] [address] Social History Tobacco Use Types Packs/Day Years Used Date Smoking Tobacco: Every Day Cigarettes 0.8 25 Smokeless Tobacco: Never Comments: 1 pack daily Alcohol Use Standard Drinks/Week Comments No 0 (1 standard drink = 0.6 oz pure alcoho l) 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 Date Recorded 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 documented as of this encounter Miscellaneous Notes Telephone Encounter - Nikolas Fregoso - 02/04/2020 2:56 PM CDT Left message for wellness screening documented in this encounter Plan of Treatment Not on filedocumented as of this encounter Visit Diagnoses Not on filedocumented in this encounter Additional Health Concerns Assessment Noted Time PHQ-9 Depression Total Score: 0 12/20/2019 11:27 AM CD T documented as of this encounter Care Teams Air Traffic Controller Relationship Specialty Start Date End Date Leticia Armendariz MD PCP - General Internal Medicine 03/17/15 Nahum Lemus MD 09/16/16 [place] GASTROENTEROLOG[facility] [address] [facility] [place] [id number] Karuna Ramirez MD MD Cardiology 09/16/16 Karime Castro DO Referring Physician Orthopedics 05/13/17 [facility] [address] [facility] [address] [place], [place] [phone] Tito Almonte MD MD Orthopedics 05/13/17 [address] [facility] [address] [place], [place] [address] Leticia Armendariz MD Assigned PCP 12/30/19 02/07/[address] [id number] documented as of this encounter
--- OUTSIDE RECORDS SUMMARY | 2022-06-25 13:49 | XMS_ITS | Encounter Summary ---
:1965 Author Organization [facility] Address [address] [place] [address] Care Team Providers Name Role Phone Leticia Armendariz MD Primary Care Provider Nahum Lemus MD Unavailable Karuna Ramirez MD Unavailable [phone] Karime Castro DO Unavailable Tito Almonte MD Unavailable Leticia Armendariz MD Unavailable Reason for Referral Diagnostic Imaging XR (Routine) - Closed Specialty Diagnoses / Procedures Referred By Contact Refer red To Contact Diagnoses Atypical chest pain Palpitations Cristian Cooper MD Procedures Radiologist Consult For Cardiology [address], [address] [place] [id number] Referral ID Status Reason Start Date Expiration Date Visits Requ ested Visits Authorized [id number] Closed 01/21/2020 01/20/2021 [address] Scan (Routine) - Closed Specialty Diagnoses / Procedures Referred By Contact Refer red To Contact Cardiology Diagnoses Atypical chest pain Palpitations Cristian Cooper MD Sh Cv Ct Procedures CTA Angiogram coronary artery [address], [place] [address] [place] [address] [place] [id number] Referral ID Status Reason Start Date Expiration Date Visits Requ ested Visits Authorized [id number] Closed 01/08/2020 01/07/2021 1 1 Reason for Visit Diagnostic Imaging CT Scan (Routine) - Closed Specialty Diagnoses / Procedures Referred By Contact Refer red To Contact Cardiology Diagnoses Atypical chest pain Palpitations Cristian Cooper MD Cv Ct Procedures CTA Angiogram coronary artery [address], [place] [address] [facility] [address] [place] [address] [place] [address] Referral ID Status Reason Start Date Expiration Date Visits Requ ested Visits Authorized [id number] Closed 01/08/2020 01/07/2021 1 1 Encounter Details Date Type Department Care Team Description 02/05/2020 Hospital Encounter [facility] Cristian Cooper MD Atypical chest pain; [facility] [address] [facility] [facility] [place], [place] [address] [address] [phone] [address] (Work) [place] [phone] (Fax) [phone] Social History Tobacco Use Types Packs/Day Years Used Date Smoking Tobacco: Every Day Cigarettes 0.8 25 Smokeless Tobacco: Never Comments: 1 pack daily Alcohol Use Standard Drinks/Week Comments No 0 (1 standard drink = 0.6 oz pure alcoho l) 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 Date Recorded Male 08/13/2020 9:06 AM [employer] COVID-19 Exposure Response Date Recorded In the last month, have you been in contact with No / Unsure 02/05/2020 7:49 AM CDT someone who was confirmed or suspected to have Coronavirus / COVID-19? documented as of this encounter Last Filed Vital Signs Vital Sign Reading Time Taken Comments Blood Pressure 122/80 02/05/2020 9:16 AM CDT Pulse 85 02/05/2020 8:00 AM CDT Temperature - - Respiratory Rate - - Oxygen Saturation - - Inhaled Oxygen Concentration - - Weight - - Height - - Body Mass Index - - documented in this encounter Medications at Time of Discharge Medication Sig Dispensed Refills Start Date End Date ciclopirox (LOPROX) 0.77 Apply topically 2 90 g 1 08/06 % creamIndications: Rash times daily omeprazole (PRILOSEC) 20 Take 20 mg by mouth 0 MG CR capsule daily ADVAIR DISKUS 100-50 INHALE 1 PUFF INTO 1 Inhaler 0 020 02/12/2020 MCG/DOSE THE LUNGS EVERY 12 inhalerIndications: HOURS Shortness of breath amLODIPine (NORVASC) 5 TAKE 1 TABLET BY 90 tablet 2 019 03/10/2020 MG tabletIndications: MOUTH EVERY DAY Atrial fibrillation status post cardioversion (H) CHANTIX 1 MG TAKE 1 TABLET BY 90 tablet 0 01/13/20202019 tabletIndications: MOUTH TWICE A DAY Tobacco abuse fenofibrate (TRICOR) 48 TAKE 2 TABLETS (96 180 tablet 1 09/0603/26/2020 MG tabletIndications: MG) BY MOUTH DAILY Elevated triglycerides with high cholesterol ketoconazole (NIZORAL) 2 Use over affected 120 mL 3 08/0601/08/2021 % external area daily shampooIndications: Rash losartan (COZAAR) 50 MG TAKE 1 TABLET BY 90 tablet 2 201802/25/2020 tabletIndications: MOUTH EVERY DAY Atrial fibrillation status post cardioversion (H) tamsulosin (FLOMAX) 0.4 Take 1 capsule (0.4 90 capsule 3 10/201701/08/2021 MG capsuleIndications: mg) by mouth daily Dysuria zolpidem (AMBIEN) 10 MG TAKE 1 TABLET BY 30 tablet 1 201903/01/2020 tabletIndications: MOUTH AT BEDTIME Primary insomnia NEEDED documented as of this encounter Plan of Treatment Scheduled Orders Name Type Priority Associated Diagnoses Order S chedule EKG 12-lead, tracing EKG STAT One Jhonny e for use with EKGs only so they will sc hedule correctly for 1 Occurrences starting 2019 until 02/05/2020 documented as of this encounter Procedures Procedure Name Priority Date/Time Associated Comments Diagnosis CTA ANGIOGRAM Routine 02/05/2020 10:04 Atypical chest pain Results for this CORONARY ARTERY AM CDT Palpitations procedure ar e in the results section. RADIOLOGIST CONSULT Routine 02/05/2020 10:04 Atypical ch est pain Results for this FOR CARDIOLOGY AM CDT Palpitations procedure are in the results section. documented in this encounter Results Radiologist Consult For Cardiology (02/05/2020 10:04 AM CDT) Anatomical Region Laterality Modality Computed Tomography Specimen (Source) Anatomical Location Collection Method / Collectio n Time Received Time / Laterality Volume Impressions 02/05/2020 2:13 PM CDT IMPRESSION: 2 mm nodule left upper lobe image 20 series 12. 3 mm right lower lobe nodule image 32 series 12. Be nign calcified granuloma in the upper right middle lobe. Additional granulomata in tiny nodules noted. No effusions. No infiltrates. Ple ase see cardiology report for cardiac and vascular findings. Recommendations for one or multiple inci dental lung nodules < 6mm : ??Low risk patients: No routine follow- up. ??High risk patients: Optional follow-u p CT at 12 months; if unchanged, no further follow-up. *Low Risk: Minimal or absent history of smoking or other known risk factors. *Nonsolid (ground glass) or partly solid nodules may require longer follow-up to exclude indolent adenocarci noma. *Recommendations based on Guidelines for the Management of Incidental Pulmonary Nodules Detected at CT: From t he Fleischner Society 2017, Radiology 2017. Procedure: CTA ANGIOGRAM CORONARY ARTERY , RADIOLOGIST CONSULT FOR CARDIOLOGY Examination Date: 02/05/2020 10:04 AM Indication: ??Atypical chest pain. Clinical Information: CAD eval, intermed iate/high risk, norm angio >= 2yrs; Atypical chest pain; Palpitations Ordering Provider: Dr. Cooper Overall quality of the study: . PROCEDURE: ECG gated multi-slice compute d tomography of the heart with and without intravenous contrast ?? ( Isovue 370, 100 cc) was performed on a Siemens Dual Source Flash scanner without incident. Beta-blockers were used to optimize hear t rate (Metoprolol 100 mg Oral/ Metoprolol 40 mg IV). Sublingual N itrostat 0.4 mg was given prior to scanning. Coronary artery calci um score was performed using the Flash scanner protocol. CTA was perf ormed in the spiral mode at a heart rate of 65 bpm with 120/100 kVp. I mages were reconstructed and analyzed on a [employer] workstation. Sca n protocol was optimized to minimize radiation exposure. The total r adiation exposure including the calcium score was calculated to be 3 43 DLP, and 4.8 mSv. IMPRESSION: 1. Total Agatston score 0, 2. Normal coronary anatomy with no detec table stenosis. 3. ??Please review Radiology report for incidental noncardiac findings that will follow separately. 4. ??Mild dilatation of the aortic root measuring 38.4 mm FINDINGS: CORONARY CALCIUM SCORE: The total Agatst on calcium score is 0, Left main: 0, left anterior descendin, ?? circumflex: 0, right coronary artery: 0. CORONARY CT ANGIOGRAPHY DOMINANCE: Right dominant system. LEFT MAIN: The left main arises normally from the left coronary cusp and is widely patent without any detecta ble stenosis. LEFT ANTERIOR DESCENDING: The left anter ior descending and its major diagonal branches are widely patent with out any detectable stenosis. CIRCUMFLEX: The circumflex and its major branches are widely patent without any detectable stenosis . RIGHT CORONARY ARTERY: The right coronar y artery and its major branches are widely patent without any d etectable stenosis. ADDITIONAL FINDINGS: The proximal ascending aorta is normal i n size. There is mild dilatation aortic root puneet suring 38.4 mm. Normal pulmonary venous anatomy with all four pulmonary veins draining into the left atrium. ?? There is no left ventricular mass or thr ombus. Normal pericardial thickness. There is n o pericardial effusion. The proximal pulmonary arteries are well opacified. Please review Radiology report for incid ental noncardiac findings that will follow separately. JASON ESCALONA MD Narrative 02/05/2020 2:13 PM CDT CTA ANGIOGRAM CORONARY ARTERY, RADIOLOGIST CONSULT FOR CARDIOLOGY 02/05/2020 10:04 AM HISTORY: CAD eval, intermediate/high ris k, norm angio >= 2yrs; Atypical chest pain; Palpitations COMPARISON: None. TECHNIQUE: Volumetric helical acquisitio n of CT images of the chest from the clavicles to the kidneys were a cquired without IV contrast. Radiation dose for this scan was reduced using automated exposure control, adjustment of the mA and/or kV according to patient size, or iterative reconstruction technique. Procedure Note Jason Escalona MD - 02/05/2020Fo rmatting of this note might be different from the original. CTA ANGIOGRAM CORONARY ARTERY, RADIOLOGI ST CONSULT FOR CARDIOLOGY 02/05/2020 10:04 AM HISTORY: CAD eval, intermediate/high ris k, norm angio >= 2yrs; Atypical chest pain; Palpitations COMPARISON: None. TECHNIQUE: Volumetric helical acquisitio n of CT images of the chest from the clavicles to the kidneys were a cquired without IV contrast. Radiation dose for this scan was reduced using automated exposure control, adjustment of the mA and/or kV according to patient size, or iterative reconstruction technique. IMPRESSION: 2 mm nodule left upper lobe image 20 series 12. 3 mm right lower lobe nodule image 32 series 12. Be nign calcified granuloma in the upper right middle lobe. Additional granulomata in tiny nodules noted. No effusions. No infiltrates. Ple ase see cardiology report for cardiac and vascular findings. Recommendations for one or multiple inci dental lung nodules < 6mm : Low risk patients: No routine follow-up . High risk patients: Optional follow-up CT at 12 months; if unchanged, no further follow-up. *Low Risk: Minimal or absent history of smoking or other known risk factors. *Nonsolid (ground glass) or partly solid nodules may require longer follow-up to exclude indolent adenocarci noma. *Recommendations based on Guidelines for the Management of Incidental Pulmonary Nodules Detected at CT: From t he Fleischner Society 2017, Radiology 2017. Procedure: CTA ANGIOGRAM CORONARY ARTERY , RADIOLOGIST CONSULT FOR CARDIOLOGY Examination Date: 02/05/2020 10:04 AM Indication: Atypical chest pain. Clinical Information: CAD eval, intermed iate/high risk, norm angio >= 2yrs; Atypical chest pain; Palpitations Ordering Provider: Dr. Cooper Overall quality of the study: . PROCEDURE: ECG gated multi-slice compute d tomography of the heart with and without intravenous contrast ( Isovue 370, 100 cc) was performed on a Siemens Dual Source Flash scanner without incident. Beta-blockers were used to optimize hear t rate (Metoprolol 100 mg Oral/ Metoprolol 40 mg IV). Sublingual N itrostat 0.4 mg was given prior to scanning. Coronary artery calci um score was performed using the Flash scanner protocol. CTA was perf ormed in the spiral mode at a heart rate of 65 bpm with 120/100 kVp. I mages were reconstructed and analyzed on a [employer] workstation. Sca n protocol was optimized to minimize radiation exposure. The total r adiation exposure including the calcium score was calculated to be 3 43 DLP, and 4.8 mSv. IMPRESSION: 1. Total Agatston score 0, 2. Normal coronary anatomy with no detec table stenosis. 3. Please review Radiology report for in cidental noncardiac findings that will follow separately. 4. Mild dilatation of the aortic root me asuring 38.4 mm FINDINGS: CORONARY CALCIUM SCORE: The total Agatst on calcium score is 0, Left main: 0, left anterior descendin, ci rcumflex: 0, right coronary artery: 0. CORONARY CT ANGIOGRAPHY DOMINANCE: Right dominant system. LEFT MAIN: The left main arises normally from the left coronary cusp and is widely patent without any detecta ble stenosis. LEFT ANTERIOR DESCENDING: The left anter ior descending and its major diagonal branches are widely patent with out any detectable stenosis. CIRCUMFLEX: The circumflex and its major branches are widely patent without any detectable stenosis . RIGHT CORONARY ARTERY: The right coronar y artery and its major branches are widely patent without any d etectable stenosis. ADDITIONAL FINDINGS: The proximal ascending aorta is normal i n size. There is mild dilatation aortic root puneet suring 38.4 mm. Normal pulmonary venous anatomy with all four pulmonary veins draining into the left atrium. There is no left ventricular mass or thr ombus. Normal pericardial thickness. There is n o pericardial effusion. The proximal pulmonary arteries are well opacified. Please review Radiology report for incid ental noncardiac findings that will follow separately. JASON ESCALONA MD Cristian Cooper MD IMG DIAGNOSTIC IMAGING ORDER WHITNEY CTA Angiogram coronary artery (02/05/2020 10:04 AM CDT) Anatomical Region Laterality Modality Cardio, SUBRAD CT BODY, UMP CT CHEST, RAD CT Computed Tomography Specimen (Source) Anatomical Location Collection Method / Collectio n Time Received Time / Laterality Volume Impressions 02/05/2020 2:13 PM CDT IMPRESSION: 2 mm nodule left upper lobe image 20 series 12. 3 mm right lower lobe nodule image 32 series 12. Be nign calcified granuloma in the upper right middle lobe. Additional granulomata in tiny nodules noted. No effusions. No infiltrates. Ple ase see cardiology report for cardiac and vascular findings. Recommendations for one or multiple inci dental lung nodules < 6mm : ??Low risk patients: No routine follow- up. ??High risk patients: Optional follow-u p CT at 12 months; if unchanged, no further follow-up. *Low Risk: Minimal or absent history of smoking or other known risk factors. *Nonsolid (ground glass) or partly solid nodules may require longer follow-up to exclude indolent adenocarci noma. *Recommendations based on Guidelines for the Management of Incidental Pulmonary Nodules Detected at CT: From t he Fleischner Society 2017, Radiology 2017. Procedure: CTA ANGIOGRAM CORONARY ARTERY , RADIOLOGIST CONSULT FOR CARDIOLOGY Examination Date: 02/05/2020 10:04 AM Indication: ??Atypical chest pain. Clinical Information: CAD eval, intermed iate/high risk, norm angio >= 2yrs; Atypical chest pain; Palpitations Ordering Provider: Dr. Cooper Overall quality of the study: . PROCEDURE: ECG gated multi-slice compute d tomography of the heart with and without intravenous contrast ?? ( Isovue 370, 100 cc) was performed on a Siemens Dual Source Flash scanner without incident. Beta-blockers were used to optimize hear t rate (Metoprolol 100 mg Oral/ Metoprolol 40 mg IV). Sublingual N itrostat 0.4 mg was given prior to scanning. Coronary artery calci um score was performed using the Flash scanner protocol. CTA was perf ormed in the spiral mode at a heart rate of 65 bpm with 120/100 kVp. I mages were reconstructed and analyzed on a [employer] workstation. Sca n protocol was optimized to minimize radiation exposure. The total r adiation exposure including the calcium score was calculated to be 3 43 DLP, and 4.8 mSv. IMPRESSION: 1. Total Agatston score 0, 2. Normal coronary anatomy with no detec table stenosis. 3. ??Please review Radiology report for incidental noncardiac findings that will follow separately. 4. ??Mild dilatation of the aortic root measuring 38.4 mm FINDINGS: CORONARY CALCIUM SCORE: The total Agatst on calcium score is 0, Left main: 0, left anterior descendin, ?? circumflex: 0, right coronary artery: 0. CORONARY CT ANGIOGRAPHY DOMINANCE: Right dominant system. LEFT MAIN: The left main arises normally from the left coronary cusp and is widely patent without any detecta ble stenosis. LEFT ANTERIOR DESCENDING: The left anter ior descending and its major diagonal branches are widely patent with out any detectable stenosis. CIRCUMFLEX: The circumflex and its major branches are widely patent without any detectable stenosis . RIGHT CORONARY ARTERY: The right coronar y artery and its major branches are widely patent without any d etectable stenosis. ADDITIONAL FINDINGS: The proximal ascending aorta is normal i n size. There is mild dilatation aortic root puneet suring 38.4 mm. Normal pulmonary venous anatomy with all four pulmonary veins draining into the left atrium. ?? There is no left ventricular mass or thr ombus. Normal pericardial thickness. There is n o pericardial effusion. The proximal pulmonary arteries are well opacified. Please review Radiology report for incid ental noncardiac findings that will follow separately. JASON ESCALONA MD Narrative 02/05/2020 2:13 PM CDT CTA ANGIOGRAM CORONARY ARTERY, RADIOLOGIST CONSULT FOR CARDIOLOGY 02/05/2020 10:04 AM HISTORY: CAD eval, intermediate/high ris k, norm angio >= 2yrs; Atypical chest pain; Palpitations COMPARISON: None. TECHNIQUE: Volumetric helical acquisitio n of CT images of the chest from the clavicles to the kidneys were a cquired without IV contrast. Radiation dose for this scan was reduced using automated exposure control, adjustment of the mA and/or kV according to patient size, or iterative reconstruction technique. Procedure Note Jason Escalona MD - 02/05/2020Fo rmatting of this note might be different from the original. CTA ANGIOGRAM CORONARY ARTERY, RADIOLOGI ST CONSULT FOR CARDIOLOGY 02/05/2020 10:04 AM HISTORY: CAD eval, intermediate/high ris k, norm angio >= 2yrs; Atypical chest pain; Palpitations COMPARISON: None. TECHNIQUE: Volumetric helical acquisitio n of CT images of the chest from the clavicles to the kidneys were a cquired without IV contrast. Radiation dose for this scan was reduced using automated exposure control, adjustment of the mA and/or kV according to patient size, or iterative reconstruction technique. IMPRESSION: 2 mm nodule left upper lobe image 20 series 12. 3 mm right lower lobe nodule image 32 series 12. Be nign calcified granuloma in the upper right middle lobe. Additional granulomata in tiny nodules noted. No effusions. No infiltrates. Ple ase see cardiology report for cardiac and vascular findings. Recommendations for one or multiple inci dental lung nodules < 6mm : Low risk patients: No routine follow-up . High risk patients: Optional follow-up CT at 12 months; if unchanged, no further follow-up. *Low Risk: Minimal or absent history of smoking or other known risk factors. *Nonsolid (ground glass) or partly solid nodules may require longer follow-up to exclude indolent adenocarci noma. *Recommendations based on Guidelines for the Management of Incidental Pulmonary Nodules Detected at CT: From t he Fleischner Society 2017, Radiology 2017. Procedure: CTA ANGIOGRAM CORONARY ARTERY , RADIOLOGIST CONSULT FOR CARDIOLOGY Examination Date: 02/05/2020 10:04 AM Indication: Atypical chest pain. Clinical Information: CAD eval, intermed iate/high risk, norm angio >= 2yrs; Atypical chest pain; Palpitations Ordering Provider: Dr. Cooper Overall quality of the study: . PROCEDURE: ECG gated multi-slice compute d tomography of the heart with and without intravenous contrast ( Isovue 370, 100 cc) was performed on a Siem[employer] Dual Source Flash scanner without incident. Beta-blockers were used to optimize hear t rate (Metoprolol 100 mg Oral/ Metoprolol 40 mg IV). Sublingual N itrostat 0.4 mg was given prior to scanning. Coronary artery calci um score was performed using the Flash scanner protocol. CTA was perf ormed in the spiral mode at a heart rate of 65 bpm with 120/100 kVp. I mages were reconstructed and analyzed on a [employer] workstation. Sca n protocol was optimized to minimize radiation exposure. The total r adiation exposure including the calcium score was calculated to be 3 43 DLP, and 4.8 mSv. IMPRESSION: 1. Total Agatston score 0, 2. Normal coronary anatomy with no detec table stenosis. 3. Please review Radiology report for in cidental noncardiac findings that will follow separately. 4. Mild dilatation of the aortic root me asuring 38.4 mm FINDINGS: CORONARY CALCIUM SCORE: The total Agatst on calcium score is 0, Left main: 0, left anterior descendin, ci rcumflex: 0, right coronary artery: 0. CORONARY CT ANGIOGRAPHY DOMINANCE: Right dominant system. LEFT MAIN: The left main arises normally from the left coronary cusp and is widely patent without any detecta ble stenosis. LEFT ANTERIOR DESCENDING: The left anter ior descending and its major diagonal branches are widely patent with out any detectable stenosis. CIRCUMFLEX: The circumflex and its major branches are widely patent without any detectable stenosis . RIGHT CORONARY ARTERY: The right coronar y artery and its major branches are widely patent without any d etectable stenosis. ADDITIONAL FINDINGS: The proximal ascending aorta is normal i n size. There is mild dilatation aortic root puneet suring 38.4 mm. Normal pulmonary venous anatomy with all four pulmonary veins draining into the left atrium. There is no left ventricular mass or thr ombus. Normal pericardial thickness. There is n o pericardial effusion. The proximal pulmonary arteries are well opacified. Please review Radiology report for incid ental noncardiac findings that will follow separately. JASON ESCALONA MD Cristian Cooper MD IMG CT ORDERABLES documented in this encounter Visit Diagnoses Diagnosis Atypical chest pain Other chest pain Palpitations documented in this encounter Administered Medications Inactive Administered Medications - up to 3 most recent administrations Medication Order MAR Action Action Date Dose Rate Site iopamidol (ISOVUE-370) solution Given 02/05/2020 10:05 AM CDT 10 0 mLs 500 mL 500 mL, Intravenous, ONCE, On Tue02/05/20 at 0930, For 1 dose metoprolol (LOPRESSOR) injection 5-15 mg Given 02/05/2020 9:16 AM CDT 5 mg 5-15 mg, Intravenous, EVERY 3 MIN PRN, other, during procedure for maintaining heart rate less than 60 bpm.?MAX total dose = 40 mg., Administer over 5-10 Minutes, Starting on Tue02/05/20 at 0821, May give every 3 minutes, as needed during the procedure as verbally directed by provider. Vital signs to be monitored during the administration of the drug. HOLD for systolic blood pressure less than 90 mmHg. Dose to be given by CT nursing staff. Discontinue after procedure. USE metoprolol (LOPRESSOR) UNLESS allergic to beta-blockers or contraindications (asthma, COPD with active wheezing, or advanced heart block). IF patient has asthma or COPD with wheezing, use diltiazem (avoid diltiazem if advanced second degree or third degree heart block) Give IV Push undiluted for IV doses 0.1-15 mg. For new therapy administer each 5mg administered over 1-2 minutes. When replacing chronic therapy, administer dose over 5-10 minutes., Cardiac Intra-procedure Given 02/05/2020 9:13 AM CDT 5 mg Given 02/05/2020 9:10 AM CDT 5 mg metoprolol tartrate (LOPRESSOR) tablet 50-100 Given 8:02 AM CDT 100 mg mg 50-100 mg, Oral, ONCE PRN, for patients in whom the heart rate is 55 bpm or greater and systolic blood pressure greater than 90 mm Hg, Starting on Tue02/05/20 at 0821, For 1 dose, If patient has not received metoprolol prior to the procedure. - 50 mg if heart rate is 55-59 bpm and systolic blood pressure greater than 90 mmHg - 100 mg if heart rate is 60 bpm or greater and systolic blood pressure greater than 90 mmHg USE metoprolol (LOPRESSOR) UNLESS allergic to beta-blockers or contraindications (asthma, COPD with active wheezing, or advanced heart block). IF patient has asthma or COPD with wheezing, use diltiazem (avoid diltiazem if advanced second degree or third degree heart block) HOLD for systolic blood pressure less than 90 mmHg. Give one hour PRIOR to procedure. Dose to be given by CT nursing staff. Discontinue after procedure., Cardiac Intra-procedure nitroGLYcerin (NITROSTAT) sublingual tablet Given 02/05/2020 9:28 AM CDT 0.4 mg 0.4 mg 0.4 mg, Sublingual, EVERY 15 MIN PRN, other, Administer the first dose when the patient is on the table just before starting CT scan. As verbally ordered by the provider., Starting on Tue02/05/20 at 0821, For 2 doses, If there is a delay in the procedure, administer a second dose if necessary 15 minutes after the initial dose IF directed by the provider prior to the start of the exam. Hold for systolic blood pressure less than 90 mmHg - notify provider. Notify provider prior to giving medication if patient has a history of severe aortic stenosis., Cardiac Intra-procedure sodium chloride (PF) 0.9% PF flush 40-100 Given 02/05/2020 1 0:05 AM CDT 100 mLs mL 40-100 mL, Intravenous, ONCE, On Tue02/05/20 at 0930, For 1 dose documented in this encounter Additional Health Concerns Assessment Noted Time PHQ-9 Depression Total Score: 0 12/20/2019 11:27 AM CD T documented as of this encounter Care Teams Emergency Planner Relationship Specialty Start Date End Date Leticia Armendariz MD PCP - General Internal Medicine 03/17/15 Nahum Lemus MD 09/16/16 [place] [facility] [address] [facility] [address] Karuna Ramirez MD MD Cardiology 09/16/16 Karime Castro DO Referring Physician Orthopedics 05/13/17 [facility] [address] [facility] [address] [place], [place] [id number] Tito Almonte MD MD Orthopedics 05/13/17 [address] [facility] [address] [place], [place] [id number] Leticia Armendariz MD Assigned PCP 12/30/19 02/07/21 [place] [address] [place] [phone] documented as of this encounter
--- OUTSIDE RECORDS SUMMARY | 2022-06-25 13:49 | XMS_ITS | Encounter Summary ---
:1965 Author Organization [place] Address [address] [place] [address] Care Team Providers Name Role Phone Leticia Armendariz MD Primary Care Provider Nahum Lemus MD Unavailable Karuna Rmairez MD Unavailable [phone] Karime Castro DO Unavailable Tito Almonte MD Unavailable Kedar Rodriguez MD Unavailable Reason for Visit Reason Onset Date Comments Refill Request 11/07/2019 zolpidem (AMBIEN) 10 MG tablet Encounter Details Date Type Department Care Team Description 11/07/2019 MyC Refill [facility] Leticia Armendariz Refill Request Clinic Demarco Bender MD (zolpidem (AMBIEN) [address] alth MG ta... [facility] [address] [place] [phone] Social History Tobacco Use Types Packs/Day Years Used Date Smoking Tobacco: Every Day Cigarettes 0.8 25 Smokeless Tobacco: Never Comments: 1 pack daily Alcohol Use Standard Drinks/Week Comments No 0 (1 standard drink = 0.6 oz pure alcoho l) 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 Date Recorded Male 08/13/2020 9:06 AM [employer] documented as of this encounter Miscellaneous Notes Telephone Encounter - Mary Pan RN - 11/09/2019 11:00 AM CST Requested Prescriptions Pending Prescriptions Disp Refills ??? zolpidem (AMBIEN) 10 MG tablet Last Written Prescription Date: 07/17/19 Last Fill Quantity: 30, # refills: 1 Last office visit: 08/24/2019 with prescribing provider: Dr. 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 documented in this encounter Additional Health Concerns Assessment Noted Time PHQ-9 Depression Total Score: 0 06/10/2018 7:05 AM CDT documented as of this encounter Care Teams Supervisor Production Department Relationship Specialty Start Date End Date Leticia Armendariz MD PCP - General Internal Medicine 03/17/15 Nahum Lemus MD 09/16/16 [place] [facility] [address] [facility] [address] [place] [phone] Karuna Ramirez MD MD Cardiology 09/16/16 Karime Castro DO Referring Physician Orthopedics 05/13/17 [facility] [address] [facility] [address] [place] [address] Tito Almonte MD MD Orthopedics 05/13/17 [address] [facility] [address] [place], [place] [address] Kedar Rodriguez MD Assigned PCP 08/26/19 12/29/[address] TRANLLET [address] [address] documented as of this encounter
--- OUTSIDE RECORDS SUMMARY | 2022-06-25 13:49 | XMS_ITS | Encounter Summary ---
:1965 Author Organization [place] Address [address] [place] [address] Care Team Providers Name Role Phone Leticia Armendariz MD Primary Care Provider Nahum Lemus MD Unavailable Karuna Ramirez MD Unavailable [phone] Karime Castro DO Unavailable Tito Almonte MD Unavailable Ro Reyna NP Unavailable Reason for Visit Reason Onset Date Comments Refill Request 05/28/2019 losartan (COZAAR) Encounter Details Date Type Department Care Team Description 05/28/[address] 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 Per 04/04/19 office visit note, patient is not due to return until 03/2020 Telephone Encounter - Shyann Wooten - 05/28/2019 3:55 PM CDT Requested Prescriptions Pending Prescriptions Disp Refills ??? losartan (COZAAR) 50 MG tablet [Pharmacy Med Name: LOSARTAN POTASSIUM 50 MG TAB] 90 tablet 1 Sig: TAKE 1 TABLET BY MOUTH EVERY DAY Last Written Prescription Date: 12/22/2018 Last Fill Quantity: 90, # refills: 01 Last office visit: 04/04/2019 with prescribing provider: Future Office Visit: Angiotensin-II Receptors Passed - 05/28/2019 2:16 AM Passed - Last blood pressure under 140/90 in past 12 months BP Readings from Last 3 Encounters: 04/12/19 120/78 04/04/19 (!) 140/89 02/21/19 126/81 Passed - Recent (12 mo) or future (30 days) visit within the authorizing provider's specialty Patient had office visit in the last 12 months or has a visit in the next 30 days with authorizing provider or within the authorizing provider's specialty. See Patient Info tab in inbasket, or Choose Columns in Meds & Orders section of the refill encounter. Passed - Medication is active on med list Passed - Patient is age 18 or older Passed - Normal serum creatinine on file in past 12 months Recent Labs Lab Test 04/04/19 1543 10/26/15 1355 CR 1.23 < > -- CREAT -- -- 1.2 < > = values in this interval not displayed. Passed - Normal serum potassium on file in past 12 months Recent Labs Lab Test 04/04/19 1543 POTASSIUM 4.2 documented in this encounter Plan of Treatment Not on filedocumented as of this encounter Visit Diagnoses Diagnosis Atrial fibrillation status post cardiove rsion documented in this encounter Additional Health Concerns Assessment Noted Time PHQ-9 Depression Total Score: 0 06/10/2018 7:05 AM CDT documented as of this encounter Care Teams Travel [employer] Relationship Specialty Start Date End Date Leticia Armendariz MD PCP - General Internal Medicine 03/17/15 Nahum Lemus MD 09/16/16 [place] [facility] [address] [facility] [address] [place] [phone] Karuna Ramirez MD MD Cardiology 09/16/16 Karime Castro DO Referring Physician Orthopedics 05/13/17 [facility] [id number] [address] Tito Almonte MD MD Orthopedics 05/13/17 [address] [facility] [address] [place] [address] Ro Reyna, DICK Assigned PCP 01/07/19 08/25/19 [address] [place] [address] documented as of this encounter
--- OUTSIDE RECORDS SUMMARY | 2022-06-25 13:49 | XMS_ITS | Encounter Summary ---
:1965 Author Organization [facility] Address [address] [place] [id number] Care Team Providers Name Role Phone Leticia Armendariz MD Primary Care Provider Nahum Lemus MD Unavailable Karuna Ramirez MD Unavailable [phone] Karime Castro DO Unavailable Tito Almonte MD Unavailable Ro Reyna NP Unavailable Reason for Visit Auth/Cert Specialty Diagnoses / Procedures Referred By Contact Refer red To Contact Surgery Diagnoses Large right L4-S1 herniated disc with RLE rediculopathy and weakness Rh Periop Services Procedures MICRODISCECTOMY, SPINE, LUMBAR, 1 LEVEL, POSTERIOR APPROACH [address] [place], [place] [address] Phone: Fax: Referral ID Status Reason Start Date Expiration Date Visits Requ ested Visits Authorized [id number] 1 1 Encounter Details Date Type Department Care Team Description 04/12[facility] Umang Sandoval S/P l umbar Encounter Corazon Navarro MD microdiscectomy PreOP/PostOP [facility] (Primary Dx) [address] [facility] [address] [place], [place] [address] [id number] [place], [place] [phone] [id number] Social History Tobacco Use Types Packs/Day Years Used Date Smoking Tobacco: Every Day Cigarettes 0.8 25 Smokeless Tobacco: Never Comments: 1 pack daily Alcohol Use Standard Drinks/Week Comments No 0 (1 standard drink = 0.6 oz pure alcoho l) 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 Date Recorded 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 documented as of this encounter Last Filed Vital Signs Vital Sign Reading Time Taken Comments Blood Pressure 120/78 04/12/2019 1:40 PM CDT Pulse 87 04/12/2019 1:17 PM CDT Temperature 36.5 ??C (97.7 ??F) 04/12/2019 11:30 AM CDT Respiratory Rate 16 04/12/2019 1:40 PM CDT Oxygen Saturation 96% 04/12/2019 1:40 PM CDT Inhaled Oxygen Concentration - - Weight 93.4 kg (206 lb) 04/12/2019 6:13 AM CDT Height 177.8 cm (5' 10) 04/12/2019 6:13 AM CDT per pt Body Mass Index 29.56 04/12/2019 6:13 AM CDT documented in this encounter Discharge Instructions Discharge InstructionsKevin Carcamo RN - 04/12/2019 12:30 PM CDT SPINE SURGERY DISCHARGE INSTRUCTIONS DR. UMANG SANDOVAL M.D. [phone] 1. NO LIFTING OF MORE THAT 10 POUNDS AND NO BENDING, TWISTING OR OVERHEAD REACHING UNTIL FOLLOW-UP VISIT IN 6-8 WEEKS. 2. OK TO REMOVE DRESSING IN 24 HOURS. YOU MAY SHOWER IN 48 HOURS,, BUT DO NOT SCRUB OR SUBMERGE INCISION UNDER WATER FOR 6 WEEKS. IF YOU HAVE DRAINAGE FROM THE INCISION, YOU MAY REPLACE THE DRESSING ASNEEDED. 3. OK TO USE ICE PACKS TO THE BACK AREA FOR 20 MINUTES ON AND 20 MINUTES OFF FOR 24-48 HOURS AFTER SURGERY. AVOID ICE CONTACT DIRECTLY TO THE SKIN OR INCISION. 4. OK TO WALK MUCH TOLERATED. 5. NO CONTACT SPORTS UNTIL FOLLOW-UP VISIT. 6. NO HIGH IMPACT ACTIVITIES SUCH RUNNING/JOGGING, SNOWMOBILE OR FOUR KNIGHT RIDING OR ANY OTHERRECREACTIONAL VEHICLES. CALL MY OFFICE AT [phone] FOR INCREASING REDNESS, SWELLING OR PUS DRAINING FROM THE INCISION. CALL IF YOU HAVE INCREASED PAIN OR ANY OTHER QUESTIONS OR CONCERNS. GENERAL ANESTHESIA OR SEDATION ADULT DISCHARGE INSTRUCTIONS SPECIAL PRECAUTIONS FOR 24 HOURS AFTER SURGERY IT IS NOT UNUSUAL TO FEEL LIGHT-HEADED OR FAINT, UP TO 24 HOURS AFTER SURGERY OR WHILE TAKING PAIN MEDICATION. IF YOU HAVE THESE SYMPTOMS; SIT FOR A FEW MINUTES BEFORE STANDING AND HAVE SOMEONE ASSIST YOU WHEN YOU GET UP TO WALK OR USE THE BATHROOM. YOU SHOULD REST AND RELAX FOR THE NEXT 24 HOURS AND YOU MUST MAKE ARRANGEMENTS TO HAVE SOMEONE STAY WITH YOU FOR AT LEAST 24 HOURS AFTER YOUR DISCHARGE. AVOID HAZARDOUS AND STRENUOUS ACTIVITIES. DO NOTMAKE IMPORTANT DECISIONS FOR [address] ANY VEHICLE OR OPERATE MECHANICAL EQUIPMENT FOR 24 HOURS FOLLOWING THE END OF YOUR SURGERY. EVEN THOUGH YOU MAY FEEL NORMAL, YOUR REACTIONS MAY BE AFFECTED BY THE MEDICATION YOU HAVE RECEIVED. DO NOT DRINK ALCOHOLIC BEVERAGES FOR 24 HOURS FOLLOWING YOUR SURGERY. DRINK CLEAR LIQUIDS (APPLE JUICE, ATTILA LULU, 7-UP, BROTH, ETC.). PROGRESS TO YOUR REGULAR DIET YOU FEEL ABLE. YOU MAY HAVE A DRY MOUTH, A SORE THROAT, MUSCLES ACHES OR TROUBLE SLEEPING. THESE SHOULD GO AWAY AFTER 24 HOURS. CALL YOUR DOCTOR FOR ANY OF THE FOLLOWING: SIGNS OF INFECTION (FEVER, GROWING TENDERNESS AT THE SURGERY SITE, A LARGE AMOUNT OF DRAINAGE OR BLEEDING, SEVERE PAIN, FOUL-SMELLING DRAINAGE, REDNESS OR SWELLING. IT HAS BEEN OVER 8 TO 10 HOURS SINCE SURGERY AND YOU ARE STILL NOT ABLE TO URINATE (PASS WATER). documented in this encounter Medications at Time of Discharge Medication Sig Dispensed Refills Start Date End Date omeprazole (PRILOSEC) 20 Take 20 mg by 0 MG CR capsule mouth daily amLODIPine (NORVASC) 5 MG TAKE 1 TABLET BY 90 tablet 2 09/201806/23/2019 tabletIndications: Atrial MOUTH EVERY DAY fibrillation status post cardioversion (H) cyclobenzaprine (FLEXERIL) Take 1 tablet (10 40 tablet 0 08/24/2019 10 MG tabletIndications: mg) by mouth 3 Low back pain radiating to times daily as right leg needed for muscle spasms fenofibrate (TRICOR) 48 MG TAKE 2 TABLETS (96 180 tablet 1 0 04/06/2019 10/01/2019 tabletIndications: MG) BY MOUTH DAILY Elevated triglycerides with high cholesterol HYDROmorphone (DILAUDID) 2 Take 1-2 tablets 50 tablet 0 04/201908/24/2019 MG tabletIndications: S/P (2-4 mg) by mouth lumbar microdiscectomy every 6 hours as needed for pain losartan (COZAAR) 50 MG TAKE 1 TABLET BY 90 tablet 1 201805/28/2019 tabletIndications: Atrial MOUTH EVERY DAY fibrillation status post cardioversion (H) tamsulosin (FLOMAX) 0.4 MG Take 1 capsule 90 capsule 3 01/0401/08/2021 capsuleIndications: (0.4 mg) by mouth Dysuria daily zolpidem (AMBIEN) 10 MG TAKE 1 TABLET BY 30 tablet 1 201807/15/2019 tabletIndications: Primary MOUTH AT BEDTIME insomnia NEEDED documented as of this encounter Miscellaneous Notes Op Note - Umang Sandoval MD - 04/12/2019 10:31 AM CDT Operative Report PREOPERATIVE DIAGNOSIS: Right L4-5 and right L5-S1 herniated disk with right lower extremity radiculopathy POSTOPERATIVE DIAGNOSIS: Same PROCEDURE: 1. Right L4-5 hemilaminectomy, medial facetectomy and microdiscectomy 2. Right L5-S1 hemilaminectomy, medial facetectomy and microdiscectomy 3. Use of intraoperative microscope and C-arm ARTIST'S MODEL: Rikki Meza INDICATION FOR PROCEDURE: The patient is a 54 year old male that presented with RLE radiculopathy. After reviewing the imaging studies and examination, the decision was made to proceed with the above procedure. The patient understood the risk of surgery to be infection, CSF leak, nerve root injury, failure of improvement of his symptoms. The patient voiced understanding and wanted to proceed. DESCRIPTION OF PROCEDURE: The patient was seen in the pre op area and the procedure was discussed with the patient and significant other once again and all questions were answered. The consent was thensigned and the lumbar spine was marked with a marker. The patient was transported to the operating room on a stretcher and received general endotracheal anesthesia. The patient was placed on the operating table in the prone position on the Zev frame with all pressure points padded. The planned operative area of the back was prepped and draped in normal sterile fashion. Portable X-ray was used to identify the appropriate level. Local anesthesia was then injected along the planned incision. A 10 blade scalpel was used to make a midline incision with dissection down through the subcutaneous tissue to the fascia. The fascia was opened on the right side with the Bovie cautery. Subperiosteal dissection exposed the lamina facet joint at L4-5 and L5-S1. The Zarate retractor was then placed. The Mid as Jose Cruz drill and the Kerrison rongeur were used to perform the hemilaminectomy, medial facetectomy, foraminotomy, and to remove the ligamentum flavum. The thecal sac and L5 and S1 nerve roots were identified. There was a small inferiorly migrated disk fragment at L4-5 and a larger superiorly migrated f ragment at L5-S1. The disks were then removed with the Asha curette and also the pituitary rongeur. The nerve root was then noted to be decompressed and the Kincaid ball hook was used to verify that.Copious irrigation was performed with saline. The retractor was removed and the wound was irrigated once again. The retractor was removed and the wound was irrigated once again. The fascia was then closed with 0-Vicryl, the subcutaneous tissue with 3-0 Vicryl, and the skin closed with Dermabond. The patient was then transported back to the stretcher, extubated, and sent to recovery. At the end of thecase, all counts were correct. No complications ESTIMATED BLOOD LOSS: 30 ml IV FLUID: See Anesthesia The patient received Ancef preoperatively and Vancomycin powder in the wound Umang Sandoval MD, MS, FAANS documented in this encounter Plan of Treatment Not on filedocumented as of this encounter Procedures Procedure Name Priority Date/Time Associated Diagnosis Comme nts XR CROSSTABLE Routine 04/12/2019 9:02 AM Results for this LATERAL LUMBAR CDT procedure are in SPINE PORTABLE the results section. XR CROSSTABLE Routine 04/12/2019 8:23 AM Results for this LATERAL LUMBAR CDT procedure are in SPINE PORTABLE the results section. MICRODISCECTOMY, 04/12/2019 7:29 AM Large right L4-S1 SPINE, LUMBAR, 2 CDT herniated disc with LEVELS, POSTERIOR RLE rediculopathy and APPROACH weakness Special Needs 5ft 10 in, 210 lbs per ptOnl ine class documented in this encounter Results XR Lumbar Spine Port 1 View (04/12/2019 9:02 AM CDT) Anatomical Region Laterality Modality Spine Radio Fluoroscopy Specimen (Source) Anatomical Location Collection Method / Collectio n Time Received Time / Laterality Volume Impressions 04/12/2019 9:28 AM CDT IMPRESSION: Surgical instrument appears to be directed at the L5 vertebral body if there are assumed to b e five lumbar-type vertebral bodies. ?? DOTTIE PLUNKETT MD Narrative 04/12/2019 9:28 AM CDT LUMBAR SPINE PORTABLE ONE VIEW ??04/12/2019 9:02 AM HISTORY: Xtbl lumbar port. COMPARISON: None. Procedure Note Dottie Plunkett MD - 04/12/2019 LUMBAR SPINE PORTABLE ONE VIEW 04/12/2019 9:02 AM HISTORY: Xtbl lumbar port. COMPARISON: None. IMPRESSION: Surgical instrument appears to be directed at the L5 vertebral body if there are assumed to b e five lumbar-type vertebral bodies. DOTTIE PLUNKETT MD Umang Sandoval MD [facility] XR Lumbar Spine Port 1 View (04/12/2019 8:23 AM CDT) Specimen (Source) Anatomical Location Collection Method / Collectio n Time Received Time / Laterality Volume Narrative [facility] - 04/12/2019 8:28 AM CDT This exam was marked as non-reportable because it will not be read by a radiologist or a [facility] non-radiologis t provider. Umang Sandoval MD [facility] ER[facility] Performing Organization Address City/State/ZIP Code Phon e Number [facility] documented in this encounter Visit Diagnoses Diagnosis S/P lumbar microdiscectomy - Primary Other postprocedural status documented in this encounter Administered Medications Inactive Administered Medications - up to 3 most recent administrations Medication Order MAR Action Action Date Dose Rate Site fentaNYL (PF) (SUBLIMAZE) Given 04/12/2019 10:56 AM CDT 50 mcg injection 25-50 mcg 25-50 mcg, Intravenous, EVERY 2 MIN PRN, other, acute pain while in PACU., Starting on Felicia 04/12/19 at 1025, MAX cumulative dose = 250 mcg. Use fentaNYL (SUBLIMAZE) initially, as a short acting agent for acute pain control. If insufficient, or a longer acting agent is needed, begin morphine or HYDROmorphone (DILAUDID) if ordered. For ordered IV doses 1-100 mcg give IV Push undiluted over a minimum of 3-5 minutes., PACU Given 04/12/2019 10:45 AM CDT 50 mcg fentaNYL (PF) (SUBLIMAZE) injection 25-5 0 mcg 25-50 mcg, Intravenous, EVERY 15 MIN PRN, other, acute pain while in Phase II, Starting on Felicia 04/12/19 at 1025, Indicati ons: Sedated State, MAX cumulative dose = 250 mcg. Use fentaNYL (SUBLIMAZE) initia lly, as a short acting agent for acute pain control. If insufficient, or a longer acting agent is needed, begin morphine or HYDROmorphone (DILAUDID) if ordered. For ordered IV doses 1-100 mcg give IV Push undiluted over a minimum of 3-5 minutes., Phase ll HYDROmorphone (DILAUDID) tablet 2-4 mg Given 04/12/2019 11:34 AM CDT 2 mg 2-4 mg, Oral, ONCE PRN, moderate to severe pain, Starting on Felicia 04/12/19 at 1131, For 1 dose, PACU/Phase II HYDROmorphone (PF) (DILAUDID) injection 0.3-0.5 mg 0.3-0.5 mg, Intravenous, EVERY 10 MIN PRN, other, acut e pain. May administer if Respiratory Rate is greater than 10, Sta rting on Felicia 04/12/19 at 1025, Max cumulative dose = 2 mg If fentaNYL (SUBLIMAZE) is a lso ordered, use HYDROmorphone (DILAUDID) if pain control insufficient with fentaN YL (SUMBLIMAZE) or a longer acting agent is needed. For ordered IV doses 0.1-4 mg gi ve IV Push undiluted. Administer each 2mg over 2-5 minutes., PACU/Phase II lactated ringers infusion Rate/Dose Verify 04/12/2019 10:25 AM CDT 100 mL/hr at 100 mL/hr, Intravenous, CONTINUOUS, Continue until IV catheter is weaned, PACU/Phase II, Starting on Felicia 04/12/19 at 1030, Until Felicia 04/12/19 at 1541 meperidine (DEMEROL) injection 12.5 mg 12.5 mg, Intravenous, EVERY 15 MIN PRN, post anesthesia shivering, Starting on Felicia 04/12/19 at 1025, For 2 doses, If ordered intravenously. Give IV Push undiluted. 10-40 mg over 2-3 minutes, up to 125 mg over 3-15 kaylie valentina, PACU/Phase II naloxone (NARCAN) injection 0.1-0.4 mg 0.1-0.4 mg, Intravenous, EVERY 2 MIN PRN , opioid reversal, Starting on Felicia 04/12/19 at 1025, For 24 hours, For apnea or imminent respirato ry arrest: give 0.4 mg IV undiluted Q 2 minutes PRN until desired degree of reversal is obtained, stop opioid and notify provider. Continue monitoring until dischar ge are criteria met for a minimum of 2 hours. For severe sedation, decrease in respiratory depth, quality or Respiratory Rate greater than 8: give 0. 1 mg IV Q 2 minutes x 3 doses, stop opioid and notify provider. Try to minimize reversal of analg esia especially in end-of-life patients. Continue monitorin g until discharge criteria are met for a minimum of 2 hours. For ordered IV doses 0.1-2mg give IVP. Give each 0.4mg over 15 seconds in emergency situations. For non -emergent situations further dilute in 9mL of NS to facilitate titration of response., PACU/Phase II ondansetron (ZOFRAN) injection 4 mg Given 04/12/2019 11:40 AM CDT 4 mg 4 mg, Intravenous, EVERY 30 MIN PRN, nausea, vomiting, Administer over 2-5 Minutes, Starting on Felicia 04/12/19 at 1025, For 2 doses, MAX total dose = 8 mg, including OR dosing. This is step 1 of nausea and vomiting management. If not resolved in 15 minutes, then go to step 2 [prochlorperazine (COMPAZINE) if ordered]. Irritant. For ordered IV doses 0.1-4 mg, give IV Push undiluted over 2-5 minutes., PACU/Phase II ondansetron (ZOFRAN-ODT) ODT tab 4 mg 4 mg, Oral, EVERY 30 MIN PRN, nausea, vo miting, Starting on Felicia 04/12/19 at 1025, For 2 doses, MAX total dose = 8 mg, includin g OR dosing. This is step 1 of nausea and vomiting management. If not resolved in 15 minutes, th en go to step 2 [prochlorperazine (COMPAZINE) if ordered ]. With dry hands, peel back foil backing and gently remove tablet. Do not push oral disintegrat ing tablet through foil backing. Administer immediately on tongu e and oral disintegrating tablet dissolves in seconds, then swallow with saliva. Liquid not requi red., PACU/Phase II ORAL Pain Medications - may administer a s ordered by surgeon for take home use CONTINUOUS PRN, Starting on Felicia 04/12/19 at 1025, Until Felicia 04/12/19 at 1541, May administer oral pain medications as ordered by surgeon for take home use. Discontinue IV pain medication prior to administration of oral pain medication., PACU/Phase II documented in this encounter Active and Recently Administered Medications Times are shown in CDT. Scheduled Medication Order 04/10/2019 04/11/2019 04/12/2019 ceFAZolin (ANCEF) 1 g, gentamicin (GARAM YCIN) 120 mg in sodium chloride 0.9% (bag) 1,000 mL irrigation (COMPLETED) 00 30 (Due)0946 (Given - Provider: Umang Sandoval MD) Irrigation, ONCE, Felicia 04/12/19 at 0030, For 1 dose, Intra-procedur e Continuous Medication Order 04/10/2019 04/11/2019 04/12/2019 lactated ringers infusion (CANCELED) 0656 (New Bag - Provider: Feng Portillo APRN CRNA)0818 (New Bag - Provider: Feng Portillo APRN CRNA)0928 (New Bag - Provider: Feng Portillo APRN CRNA)1013 (Anesthesia Volume Adjustment - Provider: Feng Portillo APRN CRNA) at 25 mL/hr, Intravenous, CONTINUOUS, IF patient NOT on dialysis., Pre- procedure, Starting Felicia 04/12/19 at 0630, Until Felicia 04/12/19 at 1025 lactated ringers infusion 1025 ( Rate/Dose Verify - Provider: Fide Locke RN) at 100 mL/hr, Intravenous, CONTINUOUS, C ontinue until IV catheter is weaned, PACU/Phase II, Starting Felicia 04/12/19 at 1030, Until Felicia 04/12/19 at 1541 PRN Medication Order 04/10/2019 04/11/2019 04/12/2019 bupivacaine 0.5 % - EPINEPHrine 1:200,000 injection (CANCELED) 1014 (Given - Provider: Umang Sandoval MD) PRN, Starting Felicia 04/12/19 at 1014, Intra-procedure fentaNYL (PF) (SUBLIMAZE) injection 25-50 mcg (CANCELED) 1045 (Given - Provider: Fide Locke RN)1056 (Given - Provider: Fide Locke RN) 25-50 mcg, Intravenous, EVERY 2 MIN PRN, Starting Feliica 04/12/19 at 1025, other, acute pain while in PACU., MAX cumulative dose = 250 mcg. Use fentaNYL (SUBLIMAZE) initially, as a short acting agent for acu te pain control. If insufficient, or a l onger acting agent is needed, begin morphine or HYDROmorphone (DILAUDID) if ordered. For ordered IV doses 1-100 mcg give IV Push undiluted over a minimum of 3-5 minutes., PACU fentaNYL (PF) (SUBLIMAZE) injection 25-50 mcg 25-50 mcg, Intravenous, EVERY 15 MIN PRN , Starting Felicia 04/12/19 at 1025, other, acute pain while in Phase II, MAX cumulative dose = 250 mcg. Use fentaNYL (SUBLIMAZE) initially, as a short acting agent for acute pain control. If insufficient, or a longer acting agent is needed, begin morphine or HYDROmorphone (DILAUDID) if ordered. For ordered IV doses 1-100 mcg give IV Push undiluted over a minimum of 3-5 minutes., Phase ll hemostatic matrix with thrombin (SURGIFLO) kit (CANCELED) 0858 (Given - Provider: Umang Sandoval MD) PRN, Starting Felicia 04/12/19 at 0858, Intra-procedure HYDROmorphone (DILAUDID) tablet 2-4 mg (COMPLETED) 1134 (Given - Provider: Fide Locke RN) 2-4 mg, Oral, ONCE PRN, moderate to jadyn re pain, Starting Felicia 04/12/19 at 1131, For 1 dose, PACU/Phase II HYDROmorphone (PF) (DILAUDID) injection 0.3-0.5 mg 0.3-0.5 mg, Intravenous, EVERY 10 MIN NY N, Starting Felicia 04/12/19 at 1025, Until Felicia 8 at 1541, other, acute pain. May administer if Respiratory Rate is greater than 10, PACU/Phase II, Max cumulative dose = 2 mg If fentaNYL (SUBLIMAZE) is a lso ordered, use HYDROmorphone (DILAUDID) if pain control insufficient with fentaNYL (SUMBLIMAZE) or a longer acting agent is needed. For ordered IV doses 0.1-4 m g give IV Push undiluted. Administer each 2mg over 2-5 minutes. meperidine (DEMEROL) injection 12.5 mg 12.5 mg, Intravenous, EVERY 15 MIN PRN, 2 doses, Starting Felicia 8 at 1025, Until Felicia 8 at 1541, post anesthesia shivering, PACU/Phase II, If ordered intravenously. Give IV Push undiluted. 10-40 mg over 2-3 minutes, up to 125 mg over 3-15 minutes naloxone (NARCAN) injection 0.1-0.4 mg 0.1-0.4 mg, Intravenous, EVERY 2 MIN PRN , opioid reversal, Starting Felicia 04/12/19 at 1025, For 24 hours, For apnea or imminent respiratory arrest: give 0.4 mg IV undiluted Q 2 minutes PRN until desired deg ree of reversal is obtained, stop opioid and notify provider. Continue monitoring until discharge are criteria met for a minimum of 2 hours. For severe sedation, decrease in respiratory depth, quality o r Respiratory Rate greater than 8: give 0.1 mg IV Q 2 minutes x 3 doses, stop opioid and notify provider. Try to minimize reversal of analgesia especially in end-of-life patients. Continue monitoring un til discharge criteria are met for a min imum of 2 hours. For ordered IV doses 0.1-2mg give IVP. Give each 0.4mg over 15 seconds in emergency situations. For non-emergent situations further dilute in 9mL of NS to facilitate titration of response., PACU/Phase II ondansetron (ZOFRAN) injection 4 mg(Linked Group 1) 1140 (Given - Provider: Fide Locke RN) 4 mg, Intravenous, EVERY 30 MIN PRN, roc sea, vomiting, Administer over 2-5 Minutes, Starting Felicia 04/12/19 at 1025, For 2 doses, MAX total dose = 8 mg, including OR dosing. This is step 1 of nausea and vom iting management. If not resolved in 15 minutes, then go to step 2 [prochlorperazine (COMPAZINE) if ordered]. Irritant. For ordered IV doses 0.1-4 mg, give IV Push undiluted over 2-5 minutes., PACU/Phase II ondansetron (ZOFRAN-ODT) ODT tab 4 mg(Linked Group 1) 1140 (See Alternative - Provider: Fide Locke RN) 4 mg, Oral, EVERY 30 MIN PRN, nausea, vo miting, Starting Felicia 04/12/19 at 1025, For 2 doses, MAX total dose = 8 mg, including OR dosing. This is step 1 of nausea and vomiting management. If not resolved in 15 minutes, then go to step 2 [prochlor perazine (COMPAZINE) if ordered]. With dry hands, peel back foil backing and gently remove tablet. Do not push oral disintegrating tablet through foil backing. Ad health care assistant immediately on tongue and oral disintegrating tablet dissolves in seconds, then swallow with saliva. Liquid not required., PACU/Phase II ORAL Pain Medications - may administer as ordered by surgeon for take home use CONTINUOUS PRN, Starting Felicia 04/12/19 at 1 025, Until Felicia 04/12/19 at 1541, May administer oral pain medications as ordered by surgeon for take home use. Discontinue IV pain medication prior to administration of oral pain medication., PACU/Phase II thrombin 5000 units vial (CANCELED) 0858 (Given - Provider: Umang Sandoval MD) PRN, Starting Felicia 04/12/19 at 0858, Intra-procedure vancomycin (VANCOCIN) topical powder (CANCELED) 0945 (Given - Provider: Umang Sandoval MD) PRN, Starting Felicia 04/12/19 at 0945, Intra-procedure Linked Groups Order Group 1: ondansetron (ZOFRAN-ODT) ODT tab 4 mgJump to med 4 mg, Oral, EVERY 30 MIN PRN, nausea, vo miting, Starting Felicia 04/12/19 at 1025, For 2 doses
MAX total dose = 8 mg, including OR dosing. This is step 1 of nausea and vomiting management. & amp;nbsp;If not resolved in 15 minutes, then go to step 2 [prochlorperazine (COMPAZINE) if ordered]. With dry hands, peel back foil backing and gently remove tablet. Do not push oral disintegra ting tablet through foil backing. Admini ster immediately on tongue and oral disintegrating tablet dissolves in seconds, then swallow with saliva. Liquid not required.
PACU/Phase II Or ondansetron (ZOFRAN) injection 4 mgJump to med 4 mg, Intravenous, EVERY 30 MIN PRN, roc sea, vomiting, Administer over 2-5 Minutes, Starting Felicia 04/12/19 at 1025, For 2 doses
MAX total dose = 8 mg, including OR dosing. This is step 1 of nausea and vomiting management. If not resolved in 15 minutes, then go to step 2 [prochlorperazine (COMPAZINE) if ordered]. Irritant. For ordered IV doses 0.1-4 mg, give IV Push undiluted over 2-5 minutes.
PACU/Phase II documented in this encounter Additional Health Concerns Assessment Noted Time PHQ-9 Depression Total Score: 0 06/10/2018 7:05 AM CDT documented as of this encounter Care Teams Eyelet Cutter Relationship Specialty Start Date End Date Leticia Armendariz MD PCP - General Internal Medicine 03/17/15 Nahum Lemus MD 09/16/16 [place] [facility] [address] [facility] [place] [address] Karuna Ramirez MD MD Cardiology 09/16/16 Karime Castro DO Referring Physician Orthopedics 05/13/17 [facility] [id number] [address] Tito Almonte MD MD Orthopedics 05/13/17 [id number] [place] [address] Ro Reyna NP Assigned PCP 01/07/19 08/25/19 [address] [place] [address] documented as of this encounter
--- OUTSIDE RECORDS SUMMARY | 2022-06-25 13:49 | XMS_ITS | Encounter Summary ---
:1965 Author Organization [place] Address [address] [place] [address] Care Team Providers Name Role Phone Leticia Armendariz MD Primary Care Provider Nahum Lemus MD Unavailable Karuna Ramirez MD Unavailable [phone] Karime Castro DO Unavailable Tito Almonte MD Unavailable Ro Reyna NP Unavailable Reason for Visit Reason Comments Medication Refill fenofibrate (TRICOR) Encounter Details Date Type Department Care Team Description 04/06/2019 Refill [facility] Leticia Armendariz Medication Refill Demarco Bender MD (fenofibrate (TRICOR)) [address] [place] [facility] [address] [phone] [id number] Social History Tobacco Use Types Packs/Day Years Used Date Smoking Tobacco: Every Day Cigarettes 0.8 25 Smokeless Tobacco: Never Comments: 1 pack daily Alcohol Use Standard Drinks/Week Comments No 0 (1 standard drink = 0.6 oz pure alcoho l) 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 Date Recorded 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 Telephone Encounter - Shyann Wooten - 04/06/2019 9:30 AM CDT Requested Prescriptions Pending Prescriptions Disp Refills ??? fenofibrate (TRICOR) 48 MG tablet [Pharmacy Med Name: FENOFIBRATE 48 MG TABLET] 180 tablet 1 Sig: TAKE 2 TABLETS (96 MG) BY MOUTH DAILY Last Written Prescription Date: 10/18/2018 Last Fill Quantity: 180, # refills: 01 Last office visit: 04/04/2019 with prescribing provider: Future Office Visit: Fibrates Passed - 04/06/2019 8:33 AM Passed - Lipid panel on file in past 12 months Recent Labs Lab Test 04/26/18 0803 CHOL 222* TRIG 439* HDL 31* LDL Cannot estimate LDL when triglyceride exceeds 400 mg/dL 117* NHDL 191* Passed - No abnormal creatine kinase in past 12 months Recent Labs Lab Test 03/05/14 0810 CKT 247 Passed - Recent (12 mo) or future [...] - Patient is age 18 or older documented in this encounter Plan of Treatment Not on filedocumented as of this encounter Visit Diagnoses Diagnosis Elevated triglycerides with high cholest [place] Mixed hyperlipidemia documented in this encounter Additional Health Concerns Assessment Noted Time PHQ-9 Depression Total Score: 0 06/10/2018 7:05 AM CDT documented as of this encounter Care Teams Cold Roll Packer Sheet Iron Relationship Specialty Start Date End Date Leticia Armendariz MD PCP - General Internal Medicine 03/17/15 Nahum Lemus MD 09/16/16 [place] [facility] [address] [facility] [place], [place] [phone] Karuna Ramirez MD MD Cardiology 09/16/16 Karime Castro DO Referring Physician Orthopedics 05/13/17 [facility] [address] [facility] [address] [place] [address] Tito Almonte MD MD Orthopedics 05/13/17 [address] [facility] [address] [place] [address] Ro Reyna, DICK Assigned PCP 01/07/19 08/25/19 [address] [place], [place] [id number] documented as of this encounter
--- OUTSIDE RECORDS SUMMARY | 2022-06-25 13:49 | XMS_ITS | Encounter Summary ---
:1965 Author Organization [place] Address [address] [place] [address] Care Team Providers Name Role Phone Leticia Armendariz MD Primary Care Provider Nahum Lemus MD Unavailable Karuna Ramirez MD Unavailable [phone] Karime Castro DO Unavailable Tito Almonte MD Unavailable Ro Reyna NP Unavailable Reason for Visit Reason Onset Date Comments Refill Request 07/15/2019 laila Encounter Details Date Type Department Care Team Description 07/15/2019 My[facility] Leticia Armendariz Refill Request (laila) Clinic Paramusben Bender MD [address] [facility] [address] [phone] [id number] Social History Tobacco Use Types Packs/Day Years Used Date Smoking Tobacco: Every Day Cigarettes 0.8 25 Smokeless Tobacco: Never Comments: 1 pack daily Alcohol Use Standard Drinks/Week Comments No 0 (1 standard drink = 0.6 oz pure alcoho l) 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 Date Recorded 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 Miscellaneous Notes Telephone Encounter - Akila Low RN - 07/17/2019 3:13 PM CST Laila Last Written Prescription Date: 03/14/19 Last Fill Quantity: 30, # refills: 1 Last Office Visit: 04/04/19 Future Office visit: Routing refill request to provider for review/approval because: Drug not on the [facility], [facility] or [facility] refill protocol or controlled substance documented in this encounter Plan of Treatment Not on filedocumented as of this encounter Visit Diagnoses Diagnosis Primary insomnia Persistent disorder of initiating or adrianne ntaining sleep documented in this encounter Additional Health Concerns Assessment Noted Time PHQ-9 Depression Total Score: 0 06/10/2018 7:05 AM CDT documented as of this encounter Care Teams Clean Rice Broker Relationship Specialty Start Date End Date Leticia Armendariz MD PCP - General Internal Medicine 03/17/15 Nahum Lemus MD 09/16/16 [place] [facility] [address] [facility] [address] [place] [phone] Karuna Ramirez MD MD Cardiology 09/16/16 Karime Castro DO Referring Physician Orthopedics 05/13/17 [facility] [address] [facility] [address] [place], [place] [address] Tito Almonte MD MD Orthopedics 05/13/[address] [place], [place] [address] Ro Reyna, DICK Assigned PCP 01/07/19 08/25/19 [address] [place], [place] [phone] documented as of this encounter
--- OUTSIDE RECORDS SUMMARY | 2022-06-25 13:49 | XMS_ITS | Encounter Summary ---
:1965 Author Organization [place] Address [address] [place] [address] Care Team Providers Name Role Phone Leticia Armendariz MD Primary Care Provider Nahum Lemus MD Unavailable Karuna Ramirez MD Unavailable [phone] Karime Castro DO Unavailable Tito Almonte MD Unavailable Leticia Armendariz MD Unavailable Reason for Visit Reason Comments Medication Refill Encounter Details Date Type Department Care Team Description 01/11/2020 Refill [facility] Leticia Armendariz, Medication Refill Lueders MD [address] [place] [address] [address] [place] [address] [place], [place] [address] (Wo rk) Social History Tobacco Use Types Packs/Day Years Used Date Smoking Tobacco: Every Day Cigarettes 0.8 25 Smokeless Tobacco: Never Comments: 1 pack daily Alcohol Use Standard Drinks/Week Comments No 0 (1 standard drink = 0.6 oz pure alcoho l) 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 Date 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 documented as of this encounter Miscellaneous Notes Telephone Encounter - Akila Low, RN - 01/11/2020 10:42 AM CDT Pending Prescriptions: Disp Refills CHANTIX 1 MG tablet [Pharmacy Med Name: C*56 tab*1 Sig: TAKE 1 TABLET BY MOUTH TWICE A DAY Routing refill request to provider for review/approval because: Drug interaction warning documented in this encounter Plan of Treatment Not on filedocumented as of this encounter Visit Diagnoses Diagnosis Tobacco abuse Tobacco use disorder documented in this encounter Additional Health Concerns Assessment Noted Time PHQ-9 Depression Total Score: 0 12/20/2019 11:27 AM CD T documented as of this encounter Care Teams Facilities Administrator Relationship Specialty Start Date End Date Leticia Armendariz MD PCP - General Internal Medicine 03/17/15 Nahum Lemus MD 09/16/16 [place] [facility] [address] [facility] [place] [address] Karuna Ramirez MD MD Cardiology 09/16/16 Karime Castro DO Referring Physician Orthopedics 05/13/17 [facility] [employer] [address] [facility] [address] [place], [place] [address] Tito Almonte MD MD Orthopedics 05/13/[address] [place], [place] [phone] Leticia Armendariz MD Assigned PCP 12/30/19 02/07/21 [facility] [address], [place] [address] documented as of this encounter
--- OUTSIDE RECORDS SUMMARY | 2022-06-25 13:49 | XMS_ITS | Encounter Summary ---
:1965 Author Organization [place] Address [address] [place] [address] Care Team Providers Name Role Phone Leticia Armendariz MD Primary Care Provider Nahum Lemus MD Unavailable Karuna Ramirez MD Unavailable [phone] Karime Castro DO Unavailable Tito Almonte MD Unavailable Ro Reyna NP Unavailable Encounter Details Date Type Department Care Team Description 04/12/2019 Travel Social History Tobacco Use Types Packs/Day Years Used Date Smoking Tobacco: Every Day Cigarettes 0.8 25 Smokeless Tobacco: Never Comments: 1 pack daily Alcohol Use Standard Drinks/Week Comments No 0 (1 standard drink = 0.6 oz pure alcoho l) 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 Date Recorded 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 as 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 encounter Plan of Treatment Not on filedocumented as of this encounter Visit Diagnoses Not on filedocumented in this encounter Additional Health Concerns Assessment Noted Time PHQ-9 Depression Total Score: 0 06/10/2018 7:05 AM CDT documented as of this encounter Care Teams Retirement Officer Relationship Specialty Start Date End Date Leticia Armendariz MD PCP - General Internal Medicine 03/17/15 Nahum Lemus MD 09/16/16 [place] [facility] [address] [facility] [place] [phone] Karuna Ramirez MD MD Cardiology 09/16/16 Karime Castro DO Referring Physician Orthopedics 05/13/17 [facility] [address] [facility] [address] [place] [address] Tito Almonte MD MD Orthopedics 05/13/17 [address] [facility] [address] [place] [address] Ro Reyna NP Assigned PCP 01/07/19 08/25/19 [address] [place], [place] [phone] documented as of this encounter
--- OUTSIDE RECORDS SUMMARY | 2022-06-25 13:49 | XMS_ITS | Encounter Summary ---
:1965 Author Organization [facility] Address [address] [place] [address] Care Team Providers Name Role Phone Leticia Armendariz MD Primary Care Provider Nahum Lemus MD Unavailable Karuna Ramirez MD Unavailable [phone] Karime Castro DO Unavailable Tito Almonte MD Unavailable Ro Reyna NP Unavailable Reason for Visit Auth/Cert Specialty Diagnoses / Procedures Referred By Contact Refer red To Contact Surgery Diagnoses Large right L4-S1 herniated disc with RLE rediculopathy and weakness Rh Periop Services Procedures MICRODISCECTOMY, SPINE, LUMBAR, 1 LEVEL, POSTERIOR APPROACH [address] [place], [place] [address] Phone: Fax: Referral ID Status Reason Start Date Expiration Date Visits Requ ested Visits Authorized [id number] 1 1 Encounter Details Date Type Department Care Team Description 04/12/2019 Surgery [facility] Umang Sandoval 1. Ri ght L4-5 [place] PeriOp MD Ramon hemilaminectomy, [facility] Services [facility] facetectomy and [address] [facility] ORTHOPEDICS microdiscectomy 2. Right [place], [place] [address] L5-S1 hemilaminectomy, [phone] 201 medial facetectomy and [phone] [place], [place] [address] microdiscectomy 3. Use of [phone] (Wo rk) intraoperative microscope and C-Arm Surgery Details Date/Time Status Location OR Service Patient Case Case Traum a Class Class Type Case? 04/12/19 7:30 Posted OR OR Neurosurgery Same Day AM Surgery Panel 1 Procedure [facility] Anes Op Region Wound Class Commen ts 1. Right L4-5 hemilaminectomy, medial Right General Spine I-Clean facetectomy and microdiscectomy 2. Right L5-S1 hemilaminectomy, medial facetectomy and microdiscectomy 3. 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 UMANG SANDOVAL M.D. [phone] 1. NO LIFTING OF MORE THAT 10 [...] ANY OTHERRECREACTIONAL VEHICLES. CALL MY OFFICE AT [phone] FOR INCREASING REDNESS, SWELLING OR PUS DRAINING [...] 3. Use of intraoperative microscope and C-arm METAL CUT OFF SAW TENDER: Rikki Meza INDICATION FOR PROCEDURE: The patient [...] bodies. DOTTIE PLUNKETT MD Umang Sandoval MD IMG DIAGNOSTIC IMAGING ORD ERABLES XR Lumbar Spine Port 1 View (04/12/2019 8:23 AM CDT) Specimen (Source) Anatomical Location Collection Method / Collectio n Time Received Time / Laterality Volume Narrative RADIANT - 04/12/2019 8:28 AM CDT This exam was marked as non-reportable because it will not be read by a radiologist or a [facility] non-radiologis t provider. Umang Sandoval MD IMG DIAGNOSTIC IMAGING ORD ERABLES Performing Organization Address City/State/ZIP Code Phon e Number RADIANT documented in this encounter Visit Diagnoses Not on filedocumented in this encounter Administered Medications Inactive Administered Medications - up to 3 most recent administrations Medication Order MAR Action Action Date Dose Rate Site bupivacaine 0.5 % - Given 04/12/2019 10:14 10 mLs Operative EPINEPHrine 1:200,000 AM CDT Sit e/Surgical Site injection PRN, Starting on Felicia 04/12/19 at 1014, Intra-procedure ceFAZolin (ANCEF) 1 g, Given 04/12/2019 9:46 1,000 mLs Operative gentamicin (GARAMYCIN) 120 mg AM CDT Site/Surgical Site in sodium chloride 0.9% (bag) 1,000 mL irrigation Irrigation, ONCE, On Felicia 04/12/19 at 0030, For 1 dose, Intra-procedure fentaNYL (PF) (SUBLIMAZE) injection 25-50 Given 04/12/2019 10:56 AM CDT 50 mcg mcg 25-50 mcg, Intravenous, EVERY 2 MIN [...] 3-5 minutes., Phase ll hemostatic matrix with Given 04/12/2019 8:58 AM 2 kits Operative Site/Surgical thrombin (SURGIFLO) kit CDT Site PRN, Starting on Felicia 04/12/19 at 0858, Intra-procedure HYDROmorphone (DILAUDID) tablet 2-4 mg Given 04/12/2019 [...] medication., PACU/Phase II thrombin 5000 units vial Given 04/12/2019 8:58 AM 10,000 Units Operative PRN, Starting on Felicia CDT Site /Surgical Site 04/12/19 at 0858, Intra-procedure vancomycin (VANCOCIN) Given 04/12/2019 9:45 AM CDT 1 g Operative Site/Surgical topical powder Site PRN, Starting on Felicia 04/12/19 at 0945, Intra-procedure documented in this encounter Active and Recently [...] (New Bag - Provider: Feng Portillo APRN OUTREACH ASSOCIATE)1013 (Anesthesia Volume Adjustment - Provider: Feng Portillo [...] mcg, Intravenous, EVERY 2 MIN PRN, Starting Felicia 04/12/19 at 1025, other, acute [...] mg 0.3-0.5 mg, Intravenous, EVERY 10 MIN TN N, Starting Felicia 04/12/19 at 1025, Until Felicia 04/12/19 at 1541, other, acute pain. May administer [...] 15 MIN PRN, 2 doses, Starting Felicia 04/12/19 at 1025, Until Felicia 04/12/19 at 1541, post anesthesia shivering, PACU/Phase II, [...] vomiting, Administer over 2-5 Minutes, Starting Felicia 8/8/19 at 1025, For 2 doses, MAX total [...] oral disintegrating tablet through foil backing. Ad brass instrument repair technician immediately on tongue and oral disintegrating tablet [...] documented as of this encounter Care Teams Anthropologist Physical Relationship Specialty Start Date End Date Leticia Armendariz MD PCP - General Internal Medicine 03/17/15 Nahum Lemus MD 09/16/16 [place] [facility] [address] [facility] [place] [phone] Karuna Ramirez MD MD Cardiology 09/16/16 Karime Castro DO Referring Physician Orthopedics 05/13/[address] [facility] [address] [facility] [address] [place] [address] Tito Almonte MD MD Orthopedics 05/13/[address] [place] [address] Ro Reyna NP Assigned PCP 01/07/19 08/25/19 [address] [place] [address] documented as of this encounter
--- OUTSIDE RECORDS SUMMARY | 2022-06-25 13:49 | XMS_ITS | Encounter Summary ---
:1965 Author Organization [facility] Address [address] [place] [address] Care Team Providers Name Role Phone Leticia Armendariz MD Primary Care Provider Nahum Lemus MD Unavailable Karuna Ramirez MD Unavailable [phone] Karime Castro DO Unavailable Tito Almonte MD Unavailable Ro Reyna NP Unavailable Reason for Visit Reason Comments Medication Refill amLODIPine (NORVASC) Encounter Details Date Type Department Care Team Description 06/23/2019 Refill [facility] Leticia Armendariz Medication Refill Demarco Bender MD (amLODIPine (NORVASC)) [address] [place] [facility] [address] [place] [phone] [id number] Social History Tobacco Use Types Packs/Day Years Used Date Smoking Tobacco: Every Day Cigarettes 0.8 25 Smokeless Tobacco: Never Comments: 1 pack daily Alcohol Use Standard Drinks/Week Comments No 0 (1 standard drink = 0.6 oz pure alcoho l) 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 Date 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 Telephone Encounter - Shyann Wooten - 06/25/2019 9:08 AM CDT Requested Prescriptions Pending Prescriptions Disp Refills ??? amLODIPine (NORVASC) 5 MG tablet [Pharmacy Med Name: AMLODIPINE BESYLATE 5 MG TAB] 90 tablet 2 Sig: TAKE 1 TABLET BY MOUTH EVERY DAY Last Written Prescription Date: 10/06/2018 Last Fill Quantity: 90, # refills: 02 Last office visit: 04/04/2019 with prescribing provider: Future Office Visit: Calcium Channel Blockers Protocol Passed - 06/23/2019 9:12 AM Passed - Blood pressure under 140/90 [...] = values in this interval not displayed. documented in this encounter Plan of Treatment Not on filedocumented as of this encounter Visit Diagnoses Diagnosis Atrial fibrillation status post cardiove rsion documented in this encounter Additional Health Concerns Assessment Noted Time PHQ-9 Depression Total Score: 0 06/10/2018 7:05 AM CDT documented as of this encounter Care Teams Sports Marketing Specialist Relationship Specialty Start Date End Date Leticia Armendariz MD PCP - General Internal Medicine 03/17/15 Nahum Lemus MD 09/16/16 [place] [facility] [address] [facility] [address] [place] [phone] Karuna Ramirez MD MD Cardiology 09/16/16 Karime Castro DO Referring Physician Orthopedics 05/13/17 [facility] [address] [id number] Tito Almonte MD MD Orthopedics 05/13/17 [address] [facility] [address] [place], [place] [address] Ro Reyna NP Assigned PCP 01/07/19 08/25/19 [address] [place], [place] [phone] documented as of this encounter
--- OUTSIDE RECORDS SUMMARY | 2022-06-25 13:49 | XMS_ITS | Encounter Summary ---
:1965 Author Organization [place] Address [address] [place] [address] Care Team Providers Name Role Phone Leticia Armendariz MD Primary Care Provider Nahum Lemus MD Unavailable Karuna Ramirez MD Unavailable [phone] Karime Castro DO Unavailable Tito Almonte MD Unavailable Leticia Armendariz MD Unavailable Reason for Visit Reason Comments Medication Refill Encounter Details Date Type Department Care Team Description 01/12/2020 Refill [facility] Leticia Armendariz, Medication Refill [place] MD [address] [place] [address] [address] [place] [address] [place], [place] [address] (Wo rk) Social History Tobacco Use Types Packs/Day Years Used Date Smoking Tobacco: Every Day Cigarettes 0.8 25 Smokeless Tobacco: Never Comments: 1 pack daily Alcohol Use Standard Drinks/Week Comments No 0 (1 standard drink = 0.6 oz pure alcoho l) 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 Date Recorded 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 documented as of this encounter Miscellaneous Notes Telephone Encounter - Cyndee Peters RN - 01/14/2020 11:50 AM CDT Pending Prescriptions: Disp Refills ADVAIR DISKUS 100-50 MCG/DOSE inhaler [Pha* 0 Sig: INHALE 1 PUFF INTO THE LUNGS EVERY 12 HOURS Routing refill request to provider for review/approval because: Protocol failed. Please advise, thanks. documented in this encounter Plan of Treatment Not on filedocumented as of this encounter Visit Diagnoses Diagnosis Shortness of breath documented in this encounter Additional Health Concerns Assessment Noted Time PHQ-9 Depression Total Score: 0 12/20/2019 11:27 AM CD T documented as of this encounter Care Teams It Senior Analyst Relationship Specialty Start Date End Date Leticia Armendariz MD PCP - General Internal Medicine 03/17/15 Nahum Lemus MD 09/16/16 [place] [facility] [address] [facility] [place] [address] Karuna Ramirez MD MD Cardiology 09/16/16 Karime Castro DO Referring Physician Orthopedics 05/13/17 [facility] [address] [facility] [address] [place], [place] [phone] Tito Almonte MD MD Orthopedics 05/13/[address] [place], [place] [phone] Leticia Armendariz MD Assigned PCP 12/30/19 02/07/21 [facility] [address] [place], [place] [address] documented as of this encounter
--- OUTSIDE RECORDS SUMMARY | 2022-06-25 13:49 | XMS_ITS | Encounter Summary ---
:1965 Author Organization [facility] Address [address] [place] [address] Care Team Providers Name Role Phone Leticia Armendariz MD Primary Care Provider Nahum Lemus MD Unavailable Karuna Ramirez MD Unavailable [phone] Karime Castro DO Unavailable Tito Almonte MD Unavailable Kedar Rodriguez MD Unavailable Encounter Details Date Type Department Care Team Description 12/20/2019 Travel Social History Tobacco Use Types Packs/Day Years Used Date Smoking Tobacco: Every Day Cigarettes 0.8 25 Smokeless Tobacco: Never Comments: 1 pack daily Alcohol Use Standard Drinks/Week Comments No 0 (1 standard drink = 0.6 oz pure alcoho l) 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 Date Recorded 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 documented as of this encounter Plan of Treatment Not on filedocumented as of this encounter Visit Diagnoses Not on filedocumented in this encounter Additional Health Concerns Assessment Noted Time PHQ-9 Depression Total Score: 0 12/20/2019 11:27 AM CD T documented as of this encounter Care Teams Talend Etl Developer Relationship Specialty Start Date End Date Leticia Armendariz MD PCP - General Internal Medicine 03/17/15 Nahum Lemus MD 09/16/16 [place] [facility] [address] [facility] [place] [place] [id number] Karuna Ramirez MD MD Cardiology 09/16/16 Karime Castro DO Referring Physician Orthopedics 05/13/17 [facility] [address] [facility] [address] [place], [place] [id number] Tito Almonte MD MD Orthopedics 05/13/17 [address] [facility] [address] [place], [place] [phone] Kedar Rodriguez MD Assigned PCP 08/26/19 12/29/19 [address] [facility] [address] [place], [place] [id number] documented as of this encounter
--- OUTSIDE RECORDS SUMMARY | 2022-06-25 13:49 | XMS_ITS | Encounter Summary ---
:1965 Author Organization [facility] Address [address] [place] [address] Care Team Providers Name Role Phone Leticia Armendariz MD Primary Care Provider Nahum Lemus MD Unavailable Karuna Ramirez MD Unavailable [phone] Karime Castro DO Unavailable Tito Almonte MD Unavailable Ro Reyna NP Unavailable Reason for Referral Consultation (Routine) - Closed Specialty Diagnoses / Procedures Referred By Contact Refer red To Contact Diagnoses Kedar Mccormick MD MULTIPLE LOCATIONS [address] [facility] 160 [place] [address] Referral ID Status Reason Start Date Expiration Date Visits Requ ested Visits Authorized [id number] Closed 08/24/2019 08/23/2020 1 1 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 Encounter Details Date Type Department Care Team Description 08/24/[address] 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 documented as of this encounter Last Filed Vital Signs Vital Sign Reading Time Taken Comments Blood Pressure 138/84 08/24/2019 8:25 AM PRODUCTION CLOTH CUTTER Pulse 94 08/24/2019 8:25 AM PRODUCTION CLOTH CUTTER Temperature 36.7 ??C (98.1 ??F) 08/24/2019 8:25 AM PRODUCTION CLOTH CUTTER Respiratory Rate 18 08/24/2019 8:25 AM PRODUCTION CLOTH CUTTER Oxygen Saturation 99% 08/24/2019 8:25 AM PRODUCTION CLOTH CUTTER Inhaled Oxygen Concentration - - Weight 93.7 kg (206 lb 9.6 oz) 08/24/2019 8:25 AM PRODUCTION CLOTH CUTTER Height 177.8 cm (5' 10) 08/24/2019 8:25 AM PRODUCTION CLOTH CUTTER Body Mass Index 29.64 08/24/2019 8:25 AM PRODUCTION CLOTH CUTTER documented in this encounter Patient Instructions Patient InstructionsKedar Rodriguez MD - 08/24/2019 8:20 AM CST Try once daily use of one of the three antifungal options (two are creams, one is a shampoo) over the affected areas--every day for at least four weeks or so, then daily as needed. If no clear benefit from any of these, we should probably get some help from dermatology. UCTION CLOTH CUTTER documented in this encounter Progress Notes Kedar Rodriguez MD - 08/24/2019 8:20 AM CST Subjective Feng Perez is a 54 year old male who presents to clinic today for the following health issues: Patient is being seen for arthritis and joint pain. Patient also has psoriasis on head, face and chest. HPI Dry skin Over the past few years, 95% of his face, head, and ears have been affected with severe dry skin. Itflakes so bad it looks like snow. There are times he and his are able to pull chunks of skin off of his face and scalp. At times his skin is so dry it cracks and leads to open weeping sores. Themustache, cheeks, and chin area will also get very red and tender about once weekly. He has kept a lopez to help hide the dry skin. Notes that he has been applying OTC lotions aimed for Psoriasis, which provide temporary relief. He has never been diagnosed with psoriasis. His has commented that it appears he has craddle cap at times. He has never used OTC shampoos for dandruff. Symptoms are progressively worsening. Also has a red patch that flakes on the center of his chest. Joint pains He reports bilateral knee, hip, and hand pains. 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 Notes that his mother has RA. He wonders if he could have RA as well or psoriatic arthritis. He has a hx of back and neck surgery. He was also very into weight lifting years ago. Tobacco use He is a current smoker and interested in cessation. Requests an rx for Chantix. He's used Chantix inthe past which worked for him. Past/recent records reviewed and discussed for: -Last colonoscopy was on 06/05/2015--due for repeat 2024 Reviewed and updated as needed this visit by Provider Review of Systems No dyspnea or cough. No chest discomfort, dizziness or palpitations. No diarrhea, abdominal pain or rectal bleeding. No acute problems with vision or speech, lateralizing weakness or paresthesias. ROS: as above or negative for derm, musculoskeletal systems. This document serves as a record of the services and decisions personally performed and made by Kedar Rodriguez MD. It was created on his behalf by Abi Castrejon, a trained medical record administrator. The creation of this document is based on the provider's statements to the medical record administrator. Abi Castrejon August 24, 2019 8:29 AM Objective BP 138/84 (BP Location: Right arm, Patient Position: Sitting, Cuff Size: Adult Large) Pulse 94 Temp 98.1 ??F (36.7 ??C) (Oral) Resp 18 Ht 1.778 m (5' 10) Wt 93.7 kg (206 lb 9.6 oz) SpO2 99% BMI 29.64 kg/m?? Body mass index is 29.64 kg/m??. Physical Exam GENERAL: healthy, alert and no distress MS: no gross musculoskeletal defects noted, no edema SKIN: no suspicious lesions or rashes NEURO: Normal strength and tone, mentation intact and speech normal PSYCH: mentation appears normal, affect normal/bright Diagnostic Test Results: Labs reviewed in Epic Assessment & Plan (R21) Rash (primary encounter diagnosis) Comment: Suspect dermatitis and/or a possible fungal component. Recommended trying ketaconazole shampoo or cream, and/or ciclopirox cream daily for 4 weeks. Recommended applying bacitracin ointment to any weeping sores. If symptoms do not improve, consider following up with dermatology. Plan: DERMATOLOGY REFERRAL, ketoconazole (NIZORAL) 2 % external cream, ciclopirox (LOPROX) 0.77 % cream, ketoconazole (NIZORAL) 2 % external shampoo (Z72.0) Tobacco abuse Comment: Patient requested rx. He's used Chantix before successfully. Plan: varenicline (CHANTIX STARTING MONTH BRANDY) 0.5 MG X 11 & 1 MG X 42 tablet, varenicline (CHANTIX CONTINUING MONTH BRANDY) 1 MG tablet Suspect joint pains are likely osteoarthritis and not inflammatory related. Recommended Tylenol as needed for pain. Tobacco Cessation: reports that he has been smoking cigarettes. He has a 18.75 pack-year smoking history. He has neverused smokeless tobacco. Tobacco Cessation Action Plan: Pharmacotherapies : Chantix BMI: Estimated body mass index is 29.64 kg/m?? as calculated from the following: Height as of this encounter: 1.778 m (5' 10). Weight as of this encounter: 93.7 kg (206 lb 9.6 oz). Weight management plan: Discussed healthy diet and exercise guidelines FUTURE APPOINTMENTS: - Follow-up visit in 6 months Patient Instructions Try once daily use of one of the three antifungal options (two are creams, one is a shampoo) over the affected areas--every day for at least four weeks or so, then daily as needed. If no clear benefit from any of these, we should probably get some help from dermatology. The information in this document, created by the medical record administrator for me, accurately reflects the services I personally performed and the decisions made by me. I have reviewed and approved this document for accuracy prior to leaving the patient care area. August 24, 2019 8:49 AM Kedar Rodriguez MD, [facility] UCTION CLOTH CUTTER documented in this encounter Nursing Notes Lubna Schmid - 08/24/2019 8:20 AM CST BP 138/84 (BP Location: Right arm, Patient Position: Sitting, Cuff Size: Adult Large) Pulse 94 Temp 98.1 ??F (36.7 ??C) (Oral) Resp 18 Ht 1.778 m (5' 10) Wt 93.7 kg (206 lb 9.6 oz) SpO2 99% BMI 29.64 kg/m?? Patient is being seen for arthritis and joint pain. Patient also has psoriasis on face chest and head. UCTION CLOTH CUTTER documented in this encounter Plan of Treatment Scheduled Referrals Name Type Priority Associated Diagnoses Order S [facility] DERMATOLOGY REFERRAL Referral Routine Rash Ordered : 08/24/2019 documented as of this encounter Visit Diagnoses Diagnosis Rash - Primary Rash and other nonspecific skin eruption Tobacco abuse Tobacco use disorder documented in this encounter Additional Health Concerns Assessment Noted Time PHQ-9 Depression Total Score: 0 06/10/2018 7:05 AM CDT documented as of this encounter Care Teams Manager Global Communications Relationship Specialty Start Date End Date Leticia Armendariz MD PCP - General Internal Medicine 03/17/15 Nahum Lemus MD 09/16/16 [place] [facility] [address] [facility] [place] [phone] Karuna Ramirez MD MD Cardiology 09/16/16 Karime Castro DO Referring Physician Orthopedics 05/13/17 [facility] [address] [facility] [address] [place] [address] Tito Almonte MD MD Orthopedics 05/13/[address] [place] [address] Ro Reyna NP Assigned PCP 01/07/19 08/25/19 [address] [place] [address] documented as of this encounter
--- OUTSIDE RECORDS SUMMARY | 2022-06-25 13:49 | XMS_ITS | Encounter Summary ---
:1965 Author Organization [facility] Address [address] [place] [address] Care Team Providers Name Role Phone Leticia Armendariz MD Primary Care Provider Nahum Lemus MD Unavailable Karuna Ramirez MD Unavailable [phone] Karime Castro DO Unavailable Tito Almonte MD Unavailable Kedar Rodriguez MD Unavailable Reason for Visit Reason Comments Medication Refill CHANTIX 1 MG Encounter Details Date Type Department Care Team Description 12/17/[address] 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 documented as of this encounter Miscellaneous Notes Telephone Encounter - Akila Low RN - 12/19/2019 2:37 PM CDT Patient is scheduled for an appointment tomorrow. Next 5 appointments (look out 90 days) Dec 20, 2019 1:00 PM CDT Telephone Visit with Leticia Armendariz MD [facility] ([facility]) Renny Gordon [facility] [id number] Telephone Encounter - Leticia Armendariz MD - 12/19/2019 12:22 PM CDT Due for an appt Telephone Encounter - Macy Conley RN - 12/18/2019 12:55 PM CDT This medication appears to pass protocol, but a warning pops up regarding medication and suggests analternative med should be used- which nursing can not approve. Routing to provider for review Telephone Encounter - Janae Medley - 12/17/2019 3:28 PM CDT Requested Prescriptions Pending Prescriptions Disp Refills ??? CHANTIX 1 MG tablet [Pharmacy Med Name: CHANTIX 1 MG TABLET] Last Written Prescription Date: 08/24/2019 Last Fill Quantity: 60, # refills: 4 Last office visit: 08/24/2019 with prescribing provider: Future Office Visit: 180 tablet 1 Sig: TAKE 1 TABLET BY MOUTH TWICE A DAY Partial Cholinergic Nicotinic Agonist Agents Passed - 12/17/2019 1:45 PM Passed - Blood pressure under 140/90 in past 12 months BP Readings from Last 3 Encounters: 08/24/19 138/84 04/12/19 120/78 04/04/19 (!) 140/89 Passed - Recent (12 mo) or future [...] documented as of this encounter Care Teams Engineering Production Liaison Relationship Specialty Start Date End Date Leticia Armendariz MD PCP - General Internal Medicine 03/17/15 Nahum Lemus MD 09/16/16 [facility] [address] [facility] [address] Karuna Ramirez MD MD Cardiology 09/16/16 Karime Castro DO Referring Physician Orthopedics 05/13/17 [facility] [address] [facility] [address] [place], [place] [address] Tito Almonte MD MD Orthopedics 05/13/17 [address] [facility] [address] [place], [place] [phone] Kedar Rodriguez MD Assigned PCP 08/26/19 12/29/19 [address] [facility] [address] [place], [place] [phone] documented as of this encounter
--- OUTSIDE RECORDS SUMMARY | 2022-06-25 13:49 | XMS_ITS | Encounter Summary ---
:1965 Author Organization [facility] Address [address] [place] [address] Care Team Providers Name Role Phone Leticia Armendariz MD Primary Care Provider Nahum Lemus MD Unavailable Karuna Ramirez MD Unavailable [phone] Karime Castro DO Unavailable Tito Almonte MD Unavailable Leticia Armendariz MD Unavailable Encounter Details Date Type Department Care Team Description 01/08/2020 Travel Social History Tobacco Use Types Packs/Day Years Used Date Smoking Tobacco: Every Day Cigarettes 0.8 25 Smokeless Tobacco: Never Comments: 1 pack daily Alcohol Use Standard Drinks/Week Comments No 0 (1 standard drink = 0.6 oz pure alcoho l) 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 Date Recorded Male 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 COVID-19 Exposure Response Date Recorded In the [...] documented as of this encounter Care Teams Thread Grinder Relationship Specialty Start Date End Date Leticia Armendariz MD PCP - General Internal Medicine 03/17/15 Nahum Lemus MD 09/16/16 [facility] [address] [facility] [place] [address] Karuna Ramirez MD MD Cardiology 09/16/16 Karime Castro DO Referring Physician Orthopedics 05/13/17 [facility] [address] [facility] [address] [place] [address] Tito Almonte MD MD Orthopedics 05/13/[address] [place], [place] [phone] Leticia Armendariz MD Assigned PCP 12/30/19 02/07/21 [place] [address] [place] [id number] documented as of this encounter
--- OUTSIDE RECORDS SUMMARY | 2022-06-25 13:49 | XMS_ITS | Encounter Summary ---
:1965 Author Organization [place] Address [address] [facility] [place] [address] Care Team Providers Name Role Phone Leticia Armendariz MD Primary Care Provider Nahum Lemus MD Unavailable Karuna Ramirez MD Unavailable [phone] Karime Castro DO Unavailable Tito Almonte MD Unavailable Ro Reyna NP Unavailable Reason for Visit Auth/Cert Specialty Diagnoses / Procedures Referred By Contact Refer red To Contact Surgery Diagnoses Large right L4-S1 herniated disc with RLE rediculopathy and weakness Rh Periop Services Procedures MICRODISCECTOMY, SPINE, LUMBAR, 1 LEVEL, POSTERIOR APPROACH [address], [place] [address] Phone: Fax: Referral ID Status Reason Start Date Expiration Date Visits Requ ested Visits Authorized [id number] 1 1 Encounter Details Date Type Department Care Team Description 04/12/2019 Anesthesia Event [facility] Ronny Greer PeriOp Services MD Erendira [address] [place] [address] ANESTHESIA [id number] [place], [place] [address] (Wo rk) Anesthesia Record Procedure Summary Procedure Name Responsible Anesthesia Start Anesthesia Stop Anesthesiologist Time Time 1. Right L4-5 Ronny Greer MD 04/12/19 0728 9 1031 hemilaminectomy, medial facetectomy and microdiscectomy 2. Right L5-S1 hemilaminectomy, medial facetectomy and microdiscectomy 3. Use of intraoperative microscope and C-Arm (Right: Spine) Events Date Time Event Comment 04/12/2019 0728 An Start 0728 MD Present 0730 An Start Data 0731 An Induction 0732 MD Present 0734 MD Present 0735 An Intubation 0739 MD Present 0821 MD Present 0836 Quick Note Diego drip started 0850 MD Present 0941 MD Present 1020 MD Present 1023 an stop data 1031 An Stop Electronically s igned by Feng Portillo on April 12, 2019 10:31 AM Name Total fentaNYL (SUBLIMAZE) injection 250 mcg propofol (DIPRIVAN) injection 10 mg/mL vial 200 mg lidocaine 1% 40 mg glycopyrrolate 0.2 mg/mL 0.6 mg neostigmine 1mg/mL 2 mg rocuronium 10mg/mL 80 mg dexamethasone 4 mg/mL 4 mg ondansetron 2 mg/mL 4 mg HYDROmorphone 1 mg/ml 2 mg ePHEDrine 5 mg/mL 10 mg phenylephrine (DIEGO-SYNEPHRINE) injection 800 mcg dexmedetomidine (PRECEDEX) in NS syringe (4 mcg/mL) 75 .5 mcg lactated ringers infusion 2,500 mL Agents Name NO HELIOX O2 N2O Air Exp Sevoflurane Exp Isoflurane Exp Desflurane Exp N2O Ins Sevoflurane Ins Isoflurane Ins Desflurane O2 Auxiliary Blood No blood administrations on file. Lines, Drains, and Airways Type Details Placement Removal Incision/Surgical Site 04/15/14; 1233; Neck 04/15/14 1233 by Chela Coppola RN Incision/Surgical Site 07/21/18; 0750; Left; 07/21/18 0750 by Janae Steve RN Incision/Surgical Site 04/12/19; 0812; Back 04/12/19 0812 by Jessica Brown, [place] Arterial Sheath 06/26/13; 1026; 4 Fr; 06/26/13 1026 by 02/05/20 1005 by Femoral; Right; Dr. 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 MACHINE OPERATOR Intubation: Easy; Airway Size: 8; Cuffed; Oral; Blade Type: Glidescope; Place by: mdt; Insertion Attempts: 1; Secured at (cm)to lip: 23 cm; Breath Sounds: Equal, clear and bilateral; End Tidal CO2: Present; Dentition: Intact, Unchanged; Grade View of Cords: 1 documented in this encounter Social History Tobacco Use Types Packs/Day Years Used Date Smoking Tobacco: Every Day Cigarettes 0.8 25 Smokeless Tobacco: Never Comments: 1 pack daily Alcohol Use Standard Drinks/Week Comments No 0 (1 standard drink = 0.6 oz pure alcoho l) 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 Date Recorded 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 Anesthesia Type: General, ETT Note: Anesthesia Post Evaluation Patient location during evaluation: PACU Patient participation: Able to fully participate in evaluation Level of consciousness: awake Pain management: adequate Airway patency: patent Cardiovascular status: acceptable Respiratory status: acceptable Hydration status: acceptable PONV: none Last vitals: Vitals: 04/12/19 1120 04/12/19 1125 04/12/19 1130 BP: (!) 121/90 Pulse: 95 Resp: 07 17 21 Temp: 97.7 ??F (36.5 ??C) SpO2: 91% 91% 95% Electronically Signed By: Ronny Greer MD April 12, 2019 11:54 AM Anesthesia Preprocedure Evaluation - Ronny Greer MD - 04/12/2019 6:28 AM CDT Anesthesia Pre-Procedure Evaluation Patient: Feng Perez : 1965 Preoperative Diagnosis: Large right L4-S1 herniated disc with RLE rediculopathy and weakness Procedure(s): Right L4-5 L5-S1 microdiscectomy Past Medical History: Diagnosis Date ??? A-fib [...] ??? TESTICLE SURGERY ??? VASECTOMY ??? VASOVASOSTOMY Anesthesia Evaluation . Pt has had prior anesthetic. No history of anesthetic complications ROS/MED HX ENT/Pulmonary: (+)tobacco use, Current use , . . Neurologic: (+)other neuro HNP Cardiovascular: (+) hypertension----. : . . . :. dysrhythmias a-fib, . METS/Exercise Tolerance: Hematologic: - neg hematologic ROS Musculoskeletal: (+) arthritis, - GI/Hepatic: (+) GERD hepatitis type A, Renal/Genitourinary: Endo: Psychiatric: (+) psychiatric history depression Infectious Disease: Malignancy: Other: (+) H/O Chronic Pain, Physical Exam Normal systems: cardiovascular and pulmonary Airway Mallampati: II TM distance: >3 FB Neck ROM: limited Dental Cardiovascular Pulmonary Lab Results Component Value Date WBC 8.8 04/04/2019 HGB 15.8 04/04/2019 HCT 46.7 04/04/2019 PLT 235 04/04/2019 NA 140 04/04/2019 POTASSIUM 4.2 04/04/2019 CHLORIDE 107 04/04/2019 CO2 29 04/04/2019 BUN 9 04/04/2019 CR 1.23 04/04/2019 GLC 73 04/04/2019 CEFERINO 8.9 04/04/2019 MAG 2.0 03/05/2014 ALBUMIN 4.2 01/09/2018 PROTTOTAL 7.5 01/09/2018 ALT 30 04/26/2018 AST 16 01/09/2018 ALKPHOS 93 01/09/2018 BILITOTAL 0.8 01/09/2018 TSH 0.66 01/09/2018 T4 0.81 06/21/2013 Preop Vitals BP Readings from Last 3 Encounters: 04/12/19 (!) 137/91 04/04/19 (!) 140/89 02/21/19 126/81 Pulse Readings from Last 3 Encounters: 04/12/19 78 04/04/19 95 02/21/19 94 Resp Readings from Last 3 Encounters: 04/04/19 18 07/21/18 16 07/17/18 16 SpO2 Readings from Last 3 Encounters: 04/12/19 98% 04/04/19 97% 07/21/18 100% Temp Readings from Last 1 Encounters: 04/12/19 97.7 ??F (36.5 ??C) (Temporal) Ht Readings from Last 1 Encounters: 04/12/19 1.778 m (5' 10) Wt Readings from Last 1 Encounters: 04/12/19 93.4 kg (206 lb) Estimated body mass index is 29.56 kg/m?? as calculated from the following: Height as of this encounter: 1.778 m (5' 10). Weight as of this encounter: 93.4 kg (206 lb). Anesthesia Plan History & Physical Review History and physical reviewed and following examination; no interval change. ASA Status: 2 . NPO Status: > 8 hours Plan for General and ETT with Intravenous and Propofol induction. Maintenance will be Balanced. PONV prophylaxis: Ondansetron (or other 5HT-3) and Dexamethasone or Solumedrol Postoperative Care Postoperative pain management: IV analgesics. Consents Anesthetic plan, risks, benefits and alternatives discussed with: Patient. Use of blood products discussed: Yes. Use of blood products discussed with Patient. Consented to blood products. . Ronny Greer MD . documented in this encounter Miscellaneous Notes Anesthesia Care Transfer Note - Feng Portillo APRN CRNA - 04/12/2019 10:31 AM CDT Patient: Feng Perez Procedure(s): Right L4-5 L5-S1 microdiscectomy Diagnosis: Large right L4-S1 herniated disc with RLE rediculopathy and weakness Diagnosis Additional Information: No value filed. Anesthesia Type: General, ETT Note: Airway :Face Mask Patient transferred to:PACU Handoff Report: Identifed the Patient, Identified the Reponsible Provider, Reviewed the pertinent medical history, Discussed the surgical course, Reviewed Intra-OP anesthesia mangement and issues during anesthesia, Set expectations for post-procedure period and Allowed opportunity for questions and acknowledgement of understanding Vitals: (Last set prior to Anesthesia Care Transfer) CATHERINE VITALS 04/12/2019 0953 - 04/12/2019 1031 04/12/2019 Pulse: 105 SpO2: 98 % Resp Rate (observed): 24 Electronically Signed By: Feng Portillo APRN CRNA April 12, 2019 10:31 AM documented in this encounter Plan of Treatment Not on filedocumented as of this encounter Visit Diagnoses Not on filedocumented in this encounter Administered Medications Inactive Administered Medications - up to 3 most recent administrations Medication Order MAR Action Action Date Dose Rate Site dexamethasone (DECADRON) injection Given 04/12/2019 7:32 AM CDT 4 mg Intravenous, PRN, Administer over 1 Minutes, Starting on Felicia 04/12/19 at 0732, Anesthesia Intra-op dexmedetomidine (PRECEDEX) in Restarted 04/12/2019 9:29 AM 0.5 m cg/kg/hr 11.7 mL/hr NS syringe (4 mcg/mL) CDT CONTINUOUS PRN, Starting on Felicia 04/12/19 at 0745, Anesthesia Intra-op Rate/Dose Change 04/12/2019 8:25 AM CDT 0.4 mcg/kg/hr 9.3 mL/hr New Bag 04/12/2019 7:45 AM CDT 0.5 mcg/kg/hr 11.7 mL/hr ePHEDrine injection Given 04/12/2019 8:52 AM CDT 10 mg PRN, Starting on Felicia 04/12/19 at 0852, Anesthesia Intra-op fentaNYL (PF) (SUBLIMAZE) injection Given 04/12/2019 8:11 AM CDT 150 mcg PRN, Administer over 3-5 Minutes, Starting on Felicia 04/12/19 at 0732, Anesthesia Intra-op Given 04/12/2019 7:32 AM CDT 100 mcg glycopyrrolate (ROBINUL) injection Given 04/12/2019 10:02 AM CDT 0.4 mg Intravenous, PRN, Administer over 1-2 Minutes, Starting on Felicia 04/12/19 at 0732, Anesthesia Intra-op Given 04/12/2019 7:32 AM CDT 0.2 mg HYDROmorphone (DILAUDID) injection Given 04/12/2019 9:35 AM CDT 1 mg Intravenous, PRN, Starting on Felicia 04/12/19 at 0922, Anesthesia Intra-op Given 04/12/2019 9:22 AM CDT 1 mg lactated ringers infusion New Bag 04/12/2019 9:28 AM CDT at 25 mL/hr, Intravenous, CONTINUOUS, IF patient NOT on dialysis., Pre-procedure, Starting on Felicia 04/12/19 at 0630, Until Felicia 04/12/19 at 1025 New Bag 04/12/2019 8:18 AM CDT New Bag 04/12/2019 6:56 AM CDT lidocaine 1 % injection Given 04/12/2019 7:32 AM CDT 40 mg Intravenous, PRN, Starting on Felicia 04/12/19 at 0732, Anesthesia Intra-op neostigmine (PROSTIGMINE) injection Given 04/12/2019 10:02 AM CDT 2 mg Intravenous, PRN, Starting on Felicia 04/12/19 at 1002, Anesthesia Intra-op ondansetron (ZOFRAN) injection Given 04/12/2019 9:33 AM CDT 4 mg Intravenous, PRN, Administer over 2-5 Minutes, Starting on Felicia 04/12/19 at 0933, Anesthesia Intra-op phenylephrine (DIEGO-SYNEPHRINE) injection Bolus 04/12/2019 8:31 AM CDT 200 mcg Intravenous, CONTINUOUS PRN, Starting on Felicia 04/12/19 at 0800, Anesthesia Intra-op Bolus 04/12/2019 8:24 AM CDT 200 mcg Bolus 04/12/2019 8:18 AM CDT 200 mcg propofol (DIPRIVAN) injection 10 mg/mL v ial Given 04/12/2019 7:32 AM CDT 200 mg PRN, Starting on Felicia 04/12/19 at 0732, Anesthesia Intra-op rocuronium injection Given 04/12/2019 9:22 AM CDT 10 mg PRN, Starting on Felicia 04/12/19 at 0732, Anesthesia Intra-op Given 04/12/2019 8:01 AM CDT 20 mg Given 04/12/2019 7:32 AM CDT 50 mg documented in this encounter Additional Health Concerns Assessment Noted Time PHQ-9 Depression Total Score: 0 06/10/2018 7:05 AM CDT documented as of this encounter Care Teams Calenderer Relationship Specialty Start Date End Date Leticia Armendariz MD PCP - General Internal Medicine 03/17/15 Nahum Lemus MD 09/16/16 [facility] [address] [facility] [place] [id number] Karuna Ramirez MD MD Cardiology 09/16/16 Karime Castro DO Referring Physician Orthopedics 05/13/17 [facility] [address] [facility] [address] [place] [address] Tito Almonte MD MD Orthopedics 05/13/17 [address] [facility] [address] [place] [address] Ro Reyna, DICK Assigned PCP 01/07/19 08/25/19 [address] [place], [place] [id number] documented as of this encounter
--- OUTSIDE RECORDS SUMMARY | 2022-06-25 13:49 | XMS_ITS | Encounter Summary ---
:1965 Author Organization [facility] Address [address] [place] [address] Care Team Providers Name Role Phone Leticia Armendariz MD Primary Care Provider Nahum Lemus MD Unavailable Karuna Ramirez MD Unavailable [phone] Karime Castro DO Unavailable Tito Almonte MD Unavailable Kedar Rodriguez MD Unavailable Reason for Visit Reason Comments Medication Refill fenofibrate (TRICOR) Encounter Details Date Type Department Care Team Description 09/29/2019 Refill [facility] Leticia Armendariz Medication Refill Demarco Bender MD (fenofibrate (TRICOR)) [address] [facility] [address] [id number] Social History Tobacco Use Types Packs/Day Years Used Date Smoking Tobacco: Every Day Cigarettes 0.8 25 Smokeless Tobacco: Never Comments: 1 pack daily Alcohol Use Standard Drinks/Week Comments No 0 (1 standard drink = 0.6 oz pure alcoho l) 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 Date Recorded 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 Failed - Lipid panel on file in past 12 months ? Recent Labs Lab Test 04/26/18 0803 CHOL 222* TRIG 439* HDL 31* LDL Cannot estimate LDL when triglyceride exceeds 400 mg/dL 117* NHDL 191* TING SALES REPRESENTATIVE Telephone Encounter - Shyann Wooten - 10/01/2019 8:45 AM CST Requested Prescriptions Pending Prescriptions Disp Refills ??? fenofibrate (TRICOR) 48 MG tablet [Pharmacy Med Name: FENOFIBRATE 48 MG TABLET] 180 tablet 1 Sig: TAKE 2 TABLETS (96 MG) BY MOUTH DAILY Last Written Prescription Date: 04/06/2019 Last Fill Quantity: 180, # refills: 01 Last office visit: 08/24/2019 with prescribing provider: Future Office Visit: Fibrates Failed - 09/29/2019 9:56 AM Failed - Lipid panel on file in past [...] - Patient is age 18 or older TING SALES REPRESENTATIVE documented in this encounter Plan of Treatment Not on filedocumented as of this encounter Visit Diagnoses Diagnosis Elevated triglycerides with high cholest [place] Mixed hyperlipidemia documented in this encounter Additional Health Concerns Assessment Noted Time PHQ-9 Depression Total Score: 0 06/10/2018 7:05 AM CDT documented as of this encounter Care Teams Housing And Residence Life Director Relationship Specialty Start Date End Date Leticia Armendariz MD PCP - General Internal Medicine 03/17/15 Nahum Lemus MD 09/16/16 [facility] [address] [facility] [address] [place] [id number] Karuna Ramirez MD MD Cardiology 09/16/16 Karime Castro DO Referring Physician Orthopedics 05/13/17 [facility] [address] [facility] [address] [place] [address] Tito Almonte MD MD Orthopedics 05/13/17 [address] [facility] [address] [place] [address] Kedar Rodriguez MD Assigned PCP 08/26/19 12/29/19 [address] [facility] [address] [place] [address] documented as of this encounter
--- OUTSIDE RECORDS SUMMARY | 2022-06-25 13:49 | XMS_ITS | Encounter Summary ---
:1965 Author Organization [place] Address [address] [place] [address] Care Team Providers Name Role Phone Frances Leon MD Primary Care Provider Nahum Lemus MD Unavailable Karuna Ramirez MD Unavailable [phone] Karime Castro DO Unavailable Tito Almonte MD Unavailable Frances Leon MD Unavailable Reason for Referral CV Testing (Routine) - Closed Specialty Diagnoses / Procedures Referred By Contact Refer red To Contact Cardiology Diagnoses Atypical chest pain Frances Leon MD Rh Cardiac Services Procedures Echocardiogram Exercise Stress HC DOPPLER ECHO PULSED, F/U OR LIMITED HC DOPPLER ECHO COLOR FLOW VELOCITY MAP HC ECHO HEART XTHORACIC, STRESS/REST HC ECHO TRANSTHORACIC, STRESS/REST W CONTRAST [address] [facility] HC ECHO TRANSTHORACIC, STRES S/REST W/O CONTRAST HC IV PUSH SINGLE, INITIAL SUBSTANCE C INJECTION, PERFLUTREN LIPID MICROSPHERES, PER ML HC STATISTIC IV PUSH SINGLE INITIAL SUBSTANCE [address] [place], [place] [phone] Referral ID Status Reason Start Date Expiration Date Visits Requ ested Visits Authorized [id number] Closed 12/21/2019 12/20/2020 1 1 Reason for Visit CV Testing (Routine) - Closed Specialty Diagnoses / Procedures Referred By Contact Refer red To Contact Cardiology Diagnoses Atypical chest pain Frances Leon MD Rh Cardiac Services Procedures Echocardiogram Exercise Stress HC DOPPLER ECHO PULSED, F/U OR LIMITED HC DOPPLER ECHO COLOR FLOW VELOCITY MAP HC ECHO HEART XTHORACIC, STRESS/REST HC ECHO TRANSTHORACIC, STRESS/REST W CONTRAST [facility] [address] HC ECHO TRANSTHORACIC, STRES S/REST W/O CONTRAST HC IV PUSH SINGLE, INITIAL SUBSTANCE C INJECTION, PERFLUTREN LIPID MICROSPHERES, PER ML HC STATISTIC IV PUSH SINGLE INITIAL SUBSTANCE [address] [place] [phone] Referral ID Status Reason Start Date Expiration Date Visits Requ ested Visits Authorized [id number] Closed 12/21/2019 12/20/2020 1 1 Encounter Details Date Type Department Care Team Description 01/04/2020 Hospital Encounter [facility] Charles Leon ical chest pain [facility] Heart Frances Bender MD Care [facility] [address] [place] [address] Social History Tobacco Use Types Packs/Day Years Used Date Smoking Tobacco: Every Day Cigarettes 0.8 25 Smokeless Tobacco: Never Comments: 1 pack daily Alcohol Use Standard Drinks/Week Comments No 0 (1 standard drink = 0.6 oz pure alcoho l) 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 Date Recorded Male 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 documented as of this encounter Medications at Time of Discharge Medication Sig Dispensed Refills Start Date End Date ciclopirox (LOPROX) 0.77 Apply topically 2 90 g 1 08/06 % creamIndications: Rash times daily omeprazole (PRILOSEC) 20 Take 20 mg by mouth 0 MG CR capsule daily amLODIPine (NORVASC) 5 TAKE 1 TABLET BY 90 tablet 2 019 03/10/2020 MG tabletIndications: MOUTH EVERY DAY Atrial fibrillation status post cardioversion (H) fenofibrate (TRICOR) 48 TAKE 2 TABLETS (96 180 tablet 1 09/0603/26/2020 MG tabletIndications: MG) BY MOUTH DAILY Elevated triglycerides with high cholesterol fluticasone-salmeterol Inhale 1 puff into 1 Inhaler 0 12/2001/14/2020 (ADVAIR) 100-50 MCG/DOSE the lungs every 12 inhalerIndications: hours Shortness of breath ketoconazole (NIZORAL) 2 Apply topically 60 g 3 201801/08/2020 % external daily creamIndications: Rash ketoconazole (NIZORAL) 2 Use over affected 120 mL 3 08/0601/08/2021 % external area daily shampooIndications: Rash losartan (COZAAR) 50 MG TAKE 1 TABLET BY 90 tablet 2 201802/25/2020 tabletIndications: MOUTH EVERY DAY Atrial fibrillation status post cardioversion (H) tamsulosin (FLOMAX) 0.4 Take 1 capsule (0.4 90 capsule 3 10/201701/08/2021 MG capsuleIndications: mg) by mouth daily Dysuria varenicline (CHANTIX Take 1 tablet (1 mg) 60 tablet 4 08/2401/08/2020 CONTINUING MONTH BRANDY) 1 by mouth 2 times MG tabletIndications: daily Tobacco abuse varenicline (CHANTIX Use as directed 53 tablet 1 08/24/2019 01/08/2020 STARTING MONTH BRANDY) 0.5 MG X 11 & 1 MG X 42 tabletIndications: Tobacco abuse varenicline (CHANTIX) 1 Take 1 tablet (1 mg) 90 tablet 0 01/11/2020 MG tabletIndications: by mouth 2 times Tobacco abuse daily zolpidem (AMBIEN) 10 MG TAKE 1 TABLET BY 30 tablet 1 201903/01/2020 tabletIndications: MOUTH AT BEDTIME Primary insomnia NEEDED documented as of this encounter Plan of Treatment Not on filedocumented as of this encounter Procedures Procedure Name Priority Date/Time Associated Diagnosis Comme nts ECHO EXERCISE Routine 01/04/2020 10:03 AM Atypical chest pain Results for this STRESS TEST WITH CDT procedure a re in CONTRAST the results section. documented in this encounter Results ECHO EXERCISE STRESS TEST WITH CONTRAST (01/04/2020 10:03 AM CDT) Anatomical Region Laterality Modality Echocardiography Specimen (Source) Anatomical Collection Method Collection Time Re ceived Time Location / / Volume Laterality 01/04/2020 9:17 AM CDT Narrative 01/04/2020 12:19 PM CDT [id number]^EDWARD^FRANCES^RAMANDEEP [facility] Echocardiography Laboratory [address] [place] [address] Name: LILIANA DUEÑAS : 1965 Study Date: 01/04/2020 09:17 AM Age: 54 yrs Gender: Male Patient Location: [facility] Reason For Study: Atypical chest pain History: HTN Ordering Physician: FRANCES LEON Referring Physician: FRANCES LEON Performed By: Omayra Buckley RDCS BSA: 2.1 m2 Height: 70 in Weight: 200 lb HR: 82 BP: 138/84 mmHg Medications: Norvasc,LOSARTAN __ Procedure Stress Echo Complete. Contrast Optison. __ Interpretation Summary Pt had 1/10 chest pain before/during/att er treadmill test unchanged There were no ST segment changes observe d with stress. This was a normal stress echocardiogram with no evidence of stress-induced ischemia. Normal resting wall motion and no stress -induced wall motion abnormality. __ Stress The patient exercised 10:56. RPP 49229. Pt had 1/10 chest pain before/during/att er treadmill test unchanged. A high workload was achieved. There was a normal BP response to exerci se. Exercise was stopped due to fatigue. Target Heart Rate was achieved. The Guillen treadmill score was low risk ( >5 Guillen score). There were no ST segment changes observe d with stress. A moderately-high workload was achieved. No arrhythmia noted. This was a normal stress echocardiogram with no evidence of stress-induced ischemia. The visual ejection fraction is estimate d at >70%. Normal resting wall motion and no stress -induced wall motion abnormality. Baseline Normal baseline electrocardiogram. Normal left ventricular function and wal l motion at rest. The visual ejection fraction is estimate d at 55-60%. Stress Results ? Protocol: ??Bon ?Maximum Predicted HR: ?? 166 bpm ? Target HR: 141 bpm ?% Maximum Predicted HR: 86 % ?Stage ??DurationHeart Rate ??BP ? Comment ?(mm:ss) ?? (bpm) ? Stage 1 ?? 3:00 ?106 ?? 14 ? Stage 2 ?? 3:00 ?116 ?? 14 ? Stage 3 ?? 3:00 ?130 ?? 15 ? Stage 4 ?? 1:56 ?142 ?? 16 RPP: [id number] ?RecoveryR ??6:00 ?98 ?1 4/10 chest tightness during recovery ? Stress Duration: ?? 10:56 mm:s s * ?Recovery Time: 6:00 mm:ss ? Maximum Stress HR: 142 bpm * ?METS: ?13 Aortic Valve No hemodynamically significant valvular aortic stenosis. Vessels Borderline aortic root dilatation. __ Report approved by: Chung Camp 01/04/2020 12:19 PM __ Procedure Note Myles Paiz MD - 01/04/2020Format ting of this note might be different from the original. [id number]^EDWARD^FRANCES^RAMANDEEP [facility] Echocardiography Laboratory [address] [place] [address] Name: LILIANA DUEÑAS : 1965 Study Date: 01/04/2020 09:17 AM Age: 54 yrs Gender: Male Patient Location: [facility] Reason For Study: Atypical chest pain History: HTN Ordering Physician: FRANCES LEON Referring Physician: FRANCES LEON Performed By: Omayra Buckley RDCS BSA: 2.1 m2 Height: 70 in Weight: 200 lb HR: 82 BP: 138/84 mmHg Medications: Norvasc,LOSARTAN __ Procedure Stress Echo Complete. Contrast Optison. __ Interpretation Summary Pt had 1/10 chest pain before/during/att er treadmill test unchanged There were no ST segment changes observe d with stress. This was a normal stress echocardiogram with no evidence of stress-induced ischemia. Normal resting wall motion and no stress -induced wall motion abnormality. __ Stress The patient exercised 10:56. RPP 28278. Pt had 1/10 chest pain before/during/att er treadmill test unchanged. A high workload was achieved. There was a normal BP response to exerci se. Exercise was stopped due to fatigue. Target Heart Rate was achieved. The Guillen treadmill score was low risk ( >5 Guillen score). There were no ST segment changes observe d with stress. A moderately-high workload was achieved. No arrhythmia noted. This was a normal stress echocardiogram with no evidence of stress-induced ischemia. The visual ejection fraction is estimate d at >70%. Normal resting wall motion and no stress -induced wall motion abnormality. Baseline Normal baseline electrocardiogram. Normal left ventricular function and wal l motion at rest. The visual ejection fraction is estimate d at 55-60%. Stress Results Protocol: Bon Maximum Predicted HR: 1 66 bpm Target HR: 141 bpm % Maximum Predicted HR: 86 % Stage DurationHeart Rate BP Comment (mm:ss) (bpm) Stage 1 3:00 106 142/84 Stage 2 3:00 116 148/84 Stage 3 3:00 130 158/84 Stage 4 1:56 142 164/84RPP: [id number] RecoveryR 6:00 98 128/784/10 chest tigh tness during recovery Stress Duration: 10:56 mm:ss * Recovery Time: 6:00 mm:ss Maximum Stress HR: 142 bpm * METS: 13 Aortic Valve No hemodynamically significant valvular aortic stenosis. Vessels Borderline aortic root dilatation. __ Report approved by: Chung Camp 01/04/2020 12:19 PM __ Frances Leon MD CV ECHO ORDERABLES documented in this encounter Visit Diagnoses Diagnosis Atypical chest pain Other chest pain documented in this encounter Administered Medications Inactive Administered Medications - up to 3 most recent administrations Medication Order MAR Action Action Date Dose Rate Site perflutren diluted 1mL to 2mL with Given 01/04/2020 10:05 AM CDT 4 mLs saline (OPTISON) diluted injection 4 mL 4 mL, Intravenous, ONCE, On Tue01/04/20 at 1015, For 1 dose, [facility] 2150-4548-87 sodium chloride (PF) 0.9% PF flush 10 mL Given 01/04/2020 10:05 AM CDT 10 mLs 10 mL, Intravenous, ONCE, On Tue01/04/20 at 1015, For 1 dose documented in this encounter Additional Health Concerns Assessment Noted Time PHQ-9 Depression Total Score: 0 12/20/2019 11:27 AM CD T documented as of this encounter Care Teams Pickers Material Handlers Relationship Specialty Start Date End Date Frances Leon MD PCP - General Internal Medicine 03/17/15 Nahum Lemus MD 09/16/16 [facility] [address] [facility] [place] [id number] Karuna Ramirez MD MD Cardiology 09/16/16 Karime Castro DO Referring Physician Orthopedics 05/13/17 [facility] [address] [facility] [address] [place] [address] Tito Almonte MD MD Orthopedics 05/13/17 [address] [facility] [address] [place] [address] Frances Leon MD Assigned PCP 12/30/19 02/07/21 [facility] [address] [place] [address] documented as of this encounter
--- OUTSIDE RECORDS SUMMARY | 2022-06-25 13:49 | XMS_ITS | Encounter Summary ---
:1965 Author Organization [place] Address [address] [place] [address] Care Team Providers Name Role Phone Leticia Armendariz MD Primary Care Provider Nahum Lemus MD Unavailable Karuna Ramirez MD Unavailable [phone] Karime Castro DO Unavailable Tito Almonte MD Unavailable Leticia Armendariz MD Unavailable Reason for Referral (Routine) - Closed Specialty Diagnoses / Procedures Referred By Contact Refer red To Contact Diagnoses Atypical chest pain Palpitations Cristian Cooper MD [address], [address] [place] [address] Referral ID Status Reason Start Date Expiration Date Visits Requ ested Visits Authorized [id number] Closed 01/08/2020 01/07/2021 [address] Scan (Routine) - Closed Specialty Diagnoses / Procedures Referred By Contact Refer red To Contact Cardiology Diagnoses Atypical chest pain Palpitations Cristian Cooper MD Cv Ct Procedures CTA Angiogram coronary artery [address], [place] [address] [place] [address] [place] [phone] Referral ID Status Reason Start Date Expiration Date Visits Requ ested Visits Authorized [id number] Closed 01/08/2020 01/07/2021 1 1 Reason for Visit CV Cardio consult (Routine) - Closed Specialty Diagnoses / Procedures Referred By Contact Refer red To Contact Cardiology Diagnoses Atypical chest pain Leticia Armendariz MD [facility] [address] [facility] [address] [place] [address] [address] [place] [address] [place] [address] Phone: Fax: Referral ID Status Reason Start Date Expiration Date Visits Requ ested Visits Authorized [id number] Closed 12/28/2019 12/27/2020 1 1 Encounter Details Date Type Department Care Team Description 01/08/2020 Virtual Visit [facility] Leticia Armendariz MD [facility] [address] [place] [id number] Other chest pain (Primary Dx); [facility] Cristian Cooper MD [address] [facility] [address] [place], [place] [address] Atypical chest pain; [facility] Palpitations; [address] [facility] Dilated aortic root (H) [address] [place] [address] Social History Tobacco Use Types Packs/Day Years Used Date Smoking Tobacco: Every Day Cigarettes 0.8 25 Smokeless Tobacco: Never Comments: 1 pack daily Alcohol Use Standard Drinks/Week Comments No 0 (1 standard drink = 0.6 oz pure alcoho l) 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 Date Recorded 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 documented as of this encounter Patient Instructions Patient InstructionsCristian Cooper MD - 01/08/2020 8:15 AM CDT Images from the original note were not included. January 08, 2020 Thank you for allowing our Cardiology team to participate in your care. Please note the following changes to your heart treatment plan: Medication changes: - none Tests to be done: - ZioPatch 14days - Coronary CTA Follow up: - Follow up when results are available, or sooner as needed. Please contact our team at [phone] for any questions or concerns. If you are having a medical emergency, please call 911. Sincerely, Cristian Cooper MD, [facility] Cardiology [facility] - [facility] - [facility] [place] documented in this encounter Progress Notes Cristian Cooper MD - 01/08/2020 8:57 AM CDT Service Date: 01/08/2020 CARDIOLOGY CLINIC VIRTUAL VISIT CONSULT NOTE HISTORY OF PRESENT ILLNESS CONSULT INDICATION: Chest discomfort, atrial fibrillation. I had the opportunity to speak to patient Liliana Dueñas today through a video encounter for a Cardiology Clinic consultation. Due to the COVID-19 pandemic, this visit was done as a virtual video visit. As you know, Liliana Dueñas is a 54-year-old male with a past medical history significant for paroxysmal atrial fibrillation in 2012, for which he was seen by Dr. Ramirez on 08/20/2016. At that time, it was reported that he was doing heavy weight lifting and using anabolic steroids as well as testosterone supplementation with multiple stimulant drinks and was found to have atrial fibrillation and underwent a cardioversion. Since then, he has been doing reasonably well; however, he did complain of chest pain at that time, and so he was evaluated further. Prior cardiac evaluation includes a stress echocardiogram 10/2015 that was negative, his last cardiac evaluation in 2012, also, and a coronary angiogram 06/26/2013 showed no significant coronary artery disease. Subsequently, he underwent anevent monitor 07/2013 that showed no evidence of atrial fibrillation (enrolled 06/29/2013-07/16/2013). Subsequent exercise stress echocardiogram as aforementioned 10/2015 was negative for ischemia. He also underwent a Zio patch 08/2016 (in place from 08/03/2016-08/14/2016) that did not show any evidence of atrial fibrillation, but did show some paroxysmal SVT. After that, he reports that he has been doing reasonably well, no longer using any anabolic steroids. However, over the past several months, he has had significant fatigue as well as some chest discomfort, which he states is similar to his prior chest discomfort, no palpitation, it is not exertional, present at rest and with exertion all of the time. He underwent an exercise stress echocardiogram on 01/04/2020 that was negative for evidenceof ischemia. This chest discomfort is described as a vague central chest discomfort without radiation. No associated jaw numbness or tingling or radiation to his shoulders. No associated diaphoresis. He does note significant fatigue and some shortness of breath with exertion. No palpitations, dizziness, lightheadedness. He is not sure if this is similar to his prior atrial fibrillation symptoms, but he does not believe it is. 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 He also notes that he was suspected of sleep apnea a few years ago and underwent a sleep study approximately 5 years ago that was negative for evidence of sleep apnea. ASSESSMENT AND PLAN 1. Chest discomfort. Etiology of his chest discomfort is not entirely clear. His symptoms are not classic for angina in that his chest discomfort is not exertional, not associated with any diaphoresis and is present throughout the day and has been present for several months up to a year. He has undergone extensive cardiac evaluation for this chest discomfort, including a stress test as well as a coronary angiogram in 08/2013, most recently a stress echocardiogram 01/2020 that was negative for evidence of ischemia. This chest pain/discomfort does seem to be worse over the past several months. Previously, he was diagnosed with a hiatal hernia; however, after treatment, he did not note any change in his symptoms. 2. Atrial fibrillation, paroxysmal. CHADS2-VASc of 1 for hypertension. Diagnosed in 2012 during a period in which he was taking anabolic steroids, using testosterone as well as numerous stimulant drinks. Required cardioversion. No evidence of recurrence since then. 3. Hypertension. 4. Mildly dilated aortic root on stress echocardiogram 01/2020. 5. Hiatal hernia with erosion/GERD. - Will obtain a Zio patch 14 days to assess for recurrence of atrial fibrillation. - Discussed with him anticoagulation for the primary prevention of stroke. Due to his occupation as a monotype mechanic and a propensity to injure himself with minor bleeding events, the decision was made to hold off on anticoagulation for now, which I think is reasonable. - We will assess with a coronary CTA. - Follow up when results are available. Thank you for allowing our team to participate in the care of patient Liliana Dueñas. Please do not hesitate to page or call anytime with questions or concerns. Cristian Cooper MD, [facility] Cardiology Pager: [phone] Text Page January 08, 2020 MT: [place]aine Name: LILIANA DUEÑAS MRN: [id number] Account: [id number] : 1965 Service Date: 01/08/2020 Document: [id number] Cristian Cooper MD - 01/08/2020 8:15 AM CDT Liliana Dueñas is a 54 year old male who [...] given verbal consent for Video visit? Yes How would you like to obtain your AVS? Mail a copy Patient would like the video invitation sent by: Text to cell phone: [phone] Will anyone else be joining your video visit? No Patient reported vitals: BP: 137/82 Heart rate: n/a Weight: 200lb Review Of Systems Skin: negative Eyes: negative Ears/Nose/Throat: negative Respiratory: Dyspnea on exertion- minimal exertion, inhaler helps Cardiovascular: exertional chest pain or pressure Gastrointestinal: heartburn Genitourinary: negative Musculoskeletal: neck pain Neurologic: negative Psychiatric: negative Hematologic/Lymphatic/Immunologic: negative Endocrine: negative Pinky Corrigan CMA 01/08/2020 Video-Visit Details Type of service: Video Visit Video Start Time: 8:15 Video End Time: 8:32 Originating Location (pt. Location): Home Distant Location (provider location): [facility] Platform used for Video Visit: [facility] CARDIOLOGY CLINIC VIRTUAL VISIT NOTE: Past medical history, social history, family history, medication list, allergies all personally reviewed. HP and A/P: PLEASE SEE DICTATION [id number] Physical exam: Constitutional: appears stated age, in no apparent distress, appears to be well nourished Eyes: sclera anicteric, conjunctiva normal, no lesions on eyelids or lashes ENT: normocephalic, without obvious abnormality, atraumatic Pulmonary: no increased work of breathing Cardiovascular: JVP normal Gastrointestinal: No jaundice, no guarding Neurologic: awake, alert, face symmetrical, symmetrical upper extremity movement Skin: no abnormal rashes or lesions on limited exam Psychiatric: affect is normal, answers questions appropriately, oriented to self and place Cristian Cooper MD, [facility] Cardiology Pager: [phone] Text Page January 08, 2020 documented in this encounter Plan of Treatment Scheduled Referrals Name Type Priority Associated Diagnoses Order S chedule Follow-Up with Referral Routine Atypical chest p ain Expected: 05/10/2020 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 Sca n protocol was optimized to [...] mages were reconstructed and analyzed on a [employer] workstation. Sca n protocol was optimized to [...] documented in this encounter Visit Diagnoses Diagnosis Other chest pain - Primary Atypical chest pain Other chest pain Palpitations Dilated aortic root (H) Aortic ectasia, unspecified site Atypical chest pain Other chest pain Palpitations documented in this encounter Additional Health Concerns Assessment Noted Time PHQ-9 Depression Total Score: 0 12/20/2019 11:27 AM CD T documented as of this encounter Care Teams Director Of Curriculum And Instruction Relationship Specialty Start Date End Date Leticia Armendariz MD PCP - General Internal Medicine 03/17/15 Nahum Lemus MD 09/16/16 [place] [facility] [address] [facility] [address] [place] [id number] Karuna Ramirez MD MD Cardiology 09/16/16 Karime Castro DO Referring Physician Orthopedics 05/13/17 [facility] [address] [facility] [address] [place], [place] [address] Tito Almonte MD MD Orthopedics 05/13/[address] [place] [address] Leticia Armendariz MD Assigned PCP 12/30/19 02/07/[address] [address] documented as of this encounter
--- OUTSIDE RECORDS SUMMARY | 2022-06-25 13:49 | XMS_ITS | Encounter Summary ---
:1965 Author Organization [facility] Address [address] [place] [address] Care Team Providers Name Role Phone Frances Leon MD Primary Care Provider Nahum Lemus MD Unavailable Karuna Ramirez MD Unavailable [phone] Karime Castro DO Unavailable Tito Almonte MD Unavailable Kedar Rodriguez MD Unavailable Reason for Referral CV Testing (Routine) - Closed Specialty Diagnoses / Procedures Referred By Contact Refer red To Contact Cardiology Diagnoses Atypical chest pain Frances Leon MD [facility] Procedures Echocardiogram Exercise Stress HC DOPPLER ECHO PULSED, F/U OR LIMITED HC DOPPLER ECHO COLOR FLOW VELOCITY MAP HC ECHO HEART XTHORACIC, STRESS/REST HC ECHO TRANSTHORACIC, STRESS/REST W CONTRAST [facility] [address] [facility] HC ECHO TRANSTHORACIC, STRES S/REST W/O CONTRAST HC IV PUSH SINGLE, INITIAL SUBSTANCE C INJECTION, PERFLUTREN LIPID MICROSPHERES, PER ML HC STATISTIC IV PUSH SINGLE INITIAL SUBSTANCE [address] [place], [place] [id number] Referral ID Status Reason Start Date Expiration Date Visits Requ ested Visits Authorized [id number] Closed 12/21/2019 12/20/2020 1 1 Reason for Visit Reason Onset Date Comments RECHECK 12/20/2019 ED F/U Encounter Details Date Type Department Care Team Description 12/20/2019 Virtual Visit [facility] Frances Leon chest pain (Primary Dx); Clinic Demarco Bender MD Tobacco abuse; [address] Shortness of breath [place] [address] [place] [address] [phone] Social History Tobacco Use Types Packs/Day Years Used Date Smoking Tobacco: Every Day Cigarettes 0.8 25 Smokeless Tobacco: Never Tobacco Cessation: Counseling Given: No Comments: 1 pack daily Alcohol Use Standard Drinks/Week Comments No 0 (1 standard drink = 0.6 oz pure alcoho l) 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 Date Recorded 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 documented as of this encounter Progress Notes Frances Leon MD - 12/20/2019 1:00 PM CDT Liliana Dueñas is a 54 year [...] would you like to obtain your AVS? Lawrence Patient would like the video invitation sent by: Text to cell phone: [phone] Change to telephone secondary to technology issues. Subjective Liliana Dueñas is a 54 year old male who presents to clinic today for the following health issues: Do not have records yet. He reports that he had went to the ER in [place]. The patient had an EKG. He also had an ultrasound. He had blood work and was told they were normal- troponin and ddimer. He also had a chest xray. He was told he might have COPD. Consider seeing a project manager finance. Since the ER, he continues to have chest pain and shortness of breath. He did not have a stress test. The tightness in the chest is constant and to the left side. Flares up when he is sitting still or when he moves. When he exerts himself, the shortness of breath increases. The patient wishes to quit smoking. Of note, he takes prilosec every day. Stress test was negative in 2016. Hypertension Follow-up ?? Do you check your blood pressure regularly outside of the clinic? Yes ?? Are you following a low salt diet? Yes ?? Are your blood pressures ever more than 140 on the top number (systolic) OR more than 90 on the bottom number (diastolic), for example 140/90? No ?? How many servings of fruits and vegetables do you eat daily? 2-3 ?? On average, how many sweetened beverages do you drink each day (Examples: soda, juice, sweet tea,etc. Do NOT count diet or artificially sweetened beverages)? 2 ?? How many days per week do you exercise enough to make your heart beat faster? 4 ?? How many minutes a day do you exercise enough to make your heart beat faster? 20 - 29 ?? How many days per week do you miss taking your medication? 0 Patient Active Problem List Diagnosis ??? HTN (hypertension) ??? Atrial fibrillation status post cardioversion (H) ??? CARDIOVASCULAR SCREENING; LDL GOAL LESS THAN 130 ??? Cervical disc herniation ??? Tremors of nervous system ??? Essential hypertension ??? Primary insomnia ??? Mild single current episode of major depressive disorder (H) Past Surgical History: Procedure Laterality Date ??? [...] this visit by Provider Review of Systems ROS COMP: CONSTITUTIONAL: NEGATIVE for fever, chills, change in weight RESP: POS SOB CV: POS chest pain, palpitations or peripheral edema Objective There were no vitals taken for this visit. Estimated body mass index is 29.64 kg/m?? as calculated from the following: Height as of 08/24/19: 1.778 m (5' 10). Weight as of 08/24/19: 93.7 kg (206 lb 9.6 oz). Physical Exam GENERAL: healthy, alert and no distress Diagnostic Test Results: Labs reviewed in [facility] Assessment & Plan (R07.89) Atypical chest pain (primary encounter diagnosis) Comment: assess for cardiac etiology; consider COPD Plan: obtain records -stress test ordered -during COVID would unlikely obtain spirometry- trial of advair to see if improvement (Z72.0) Tobacco abuse Comment: counseled on smoking cessation Plan: varenicline (CHANTIX) 1 MG tablet See Patient Instructions Frances Leon MD [facility] Video-Visit Details- change to telephone visity Type of service: phone visit Originating Location (pt. Location): Home Distant Location (provider location): [facility] Frances Leon MD Telephone visit 22 minutes documented in this encounter Plan of Treatment Not on filedocumented as of this encounter Results ECHO EXERCISE STRESS TEST WITH CONTRAST (01/04/2020 10:03 AM CDT) Anatomical Region Laterality Modality Echocardiography Specimen (Source) Anatomical Collection Method Collection Time Re ceived Time Location / / Volume Laterality 01/04/2020 9:17 AM CDT Narrative 01/04/2020 12:19 PM CDT [id number]^EDWARD^FRANCES^RAMANDEEP [facility] Echocardiography Laboratory [address] [place] [address] Name: LILIANA DUEÑAS : 1965 Study Date: 01/04/2020 09:17 AM Age: 54 yrs Gender: Male Patient Location: [facility] Reason For Study: Atypical chest pain History: [...] __ Stress The patient exercised 10:56. RPP 15942. Pt had 1/10 chest pain before/during/att er [...] 4 ?? 1:56 ?142 ?? 16 RPP: 57780 ?RecoveryR ??6:00 ?98 ?1 4/10 chest tightness [...] note might be different from the original. [id number]^EDWARD^FRANCES^[facility] Echocardiography Laboratory [address] [place] [address] Name: LILIANA DUEÑAS Gómez : 1965 Study Date: 01/04/2020 09:17 AM Age: 54 yrs Gender: Male Patient Location: [facility] Reason For Study: Atypical chest pain History: [...] __ Stress The patient exercised 10:56. RPP 25391. Pt had 1/10 chest pain before/during/att er [...] 130 158/84 Stage 4 1:56 142 164/84RPP: 21478 RecoveryR 6:00 98 128/784/10 chest tigh tness [...] encounter Visit Diagnoses Diagnosis Atypical chest pain - Primary Other chest pain Tobacco abuse Tobacco use disorder Shortness of breath Atypical chest pain Other chest pain documented in this encounter Additional Health Concerns Assessment Noted Time PHQ-9 Depression Total Score: 0 12/20/2019 11:27 AM CD T documented as of this encounter Care Teams Food Mixer Assembler Relationship Specialty Start Date End Date Frances Leon MD PCP - General Internal Medicine 03/17/15 Nahum Lemus MD 09/16/16 [place] [facility] [address] [facility] [place] [id number] Karuna Ramirez MD MD Cardiology 09/16/16 Karime Castro DO Referring Physician Orthopedics 05/13/17 [facility] [address] [facility] [address] [place], [place] [id number] Tito Almonte MD MD Orthopedics 05/13/[address] [address] [place], [place] [phone] Kedar Rodriguez MD Assigned PCP 08/26/19 12/29/19 [address] [facility] [address] [place], [place] [phone] documented as of this encounter
--- OUTSIDE RECORDS SUMMARY | 2022-06-25 13:49 | XMS_ITS | Encounter Summary ---
:1965 Author Organization [facility] [place] Address [address] [place] [address] Care Team Providers Name Role Phone Leticia Armendariz MD Primary Care Provider Nahum Lemus MD Unavailable Karuna Ramirez MD Unavailable [phone] Karime Castro DO Unavailable Tito Almonte MD Unavailable Ro Reyna NP Unavailable Encounter Details Date Type Department Care Team Description 08/24/2019 Travel Social History Tobacco Use Types Packs/Day Years Used Date Smoking Tobacco: Every Day Cigarettes 0.8 25 Smokeless Tobacco: Never Comments: 1 pack daily Alcohol Use Standard Drinks/Week Comments No 0 (1 standard drink = 0.6 oz pure alcoho l) 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 Date Recorded 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 encounter Plan of Treatment Not on filedocumented as of this encounter Visit Diagnoses Not on filedocumented in this encounter Additional Health Concerns Assessment Noted Time PHQ-9 Depression Total Score: 0 06/10/2018 7:05 AM CDT documented as of this encounter Care Teams Digital Field Service Technician Relationship Specialty Start Date End Date Leticia Armendariz MD PCP - General Internal Medicine 03/17/15 Nahum Lemus MD 09/16/16 [place] [facility] [address] [facility] [place] [phone] Karuna Ramirez MD MD Cardiology 09/16/16 Karime Castro DO Referring Physician Orthopedics 05/13/17 [facility] [address] [facility] [address] [place] [address] Tito Almonte MD MD Orthopedics 05/13/17 [facility] [facility] [address] [place] [address] Ro Reyna NP Assigned PCP 01/07/19 08/25/19 [address] [place], [place] [id number] documented as of this encounter
--- OUTSIDE RECORDS SUMMARY | 2022-06-25 13:49 | XMS_ITS | Encounter Summary ---
:1965 Author Organization [facility] Address [address] [place] [address] Care Team Providers Name Role Phone Leticia Armendariz MD Primary Care Provider Nahum Lemus MD Unavailable Karuna Ramirez MD Unavailable [phone] Karime Castro DO Unavailable Tito Almonte MD Unavailable Leticia Armendariz MD Unavailable Encounter Details Date Type Department Care Team Description 01/04/2020 Travel Social History Tobacco Use Types Packs/Day Years Used Date Smoking Tobacco: Every Day Cigarettes 0.8 25 Smokeless Tobacco: Never Comments: 1 pack daily Alcohol Use Standard Drinks/Week Comments No 0 (1 standard drink = 0.6 oz pure alcoho l) 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 Date Recorded 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-19 Exposure Response Date Recorded In the [...] of this encounter Care Teams Director Of Business Continuity Relationship Specialty Start Date End Date Leticia Armendariz MD PCP - General Internal Medicine 03/17/15 Nahum Lemus MD 09/16/16 [place] [facility] [address] [facility] [place] [address] Karuna Ramierz MD MD Cardiology 09/16/16 Karime Castro DO Referring Physician Orthopedics 05/13/17 [facility] [address] [facility] [address] [place] [address] Tito Almonte MD MD Orthopedics 05/13/[address] [place], [place] [phone] Leticia Armendariz MD Assigned PCP 12/30/19 02/07/21 [place] [address] [place] [id number] documented as of this encounter
--- OUTSIDE RECORDS SUMMARY | 2022-06-25 13:49 | XMS_ITS | Encounter Summary ---
:1965 Author Organization [facility] Address [address] [place] [address] Care Team Providers Name Role Phone Leticia Armendariz MD Primary Care Provider Nahum Lemus MD Unavailable Karuna Ramirez MD Unavailable [phone] Karime Castro DO Unavailable Tito Almonte MD Unavailable Ro Reyna NP Unavailable Encounter Details Date Type Department Care Team Description 04/04/2019 Travel Social History Tobacco Use Types Packs/Day Years Used Date Smoking Tobacco: Every Day Cigarettes 0.8 25 Smokeless Tobacco: Never Comments: 1 pack daily Alcohol Use Standard Drinks/Week Comments No 0 (1 standard drink = 0.6 oz pure alcoho l) 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 Date Recorded 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 [place] [id number] Karuna Ramirez MD MD Cardiology 09/16/16 Karime Castro DO Referring Physician Orthopedics 05/13/17 [facility] SP[facility]TS [facility] [address] [facility] [address] [place] [address] Tito Almonte MD MD Orthopedics 05/13/17 2450 [facility] [address] [place] [address] Ro Reyna NP Assigned PCP 01/07/19 08/25/19 [address] [place], [place] [phone] documented as of this encounter
--- OUTSIDE RECORDS SUMMARY | 2022-06-25 13:49 | XMS_ITS | Encounter Summary ---
:1965 Author Organization [facility] Address [address] [place] [address] Care Team Providers Name Role Phone Leticia Armendariz MD Primary Care Provider Nahum Lemus MD Unavailable Karuna Ramirez MD Unavailable [phone] Karime Castro DO Unavailable Tito Almonte MD Unavailable Kedar Rodriguez MD Unavailable Encounter Details Date Type Department Care Team Description 12/14/2019 E-Visit [facility] Leticia Armendariz Dyspnea, unspecified Demarco Bender MD type (Primary Dx) [address] [place] [facility] [address] [place] [id number] Social History Tobacco Use Types Packs/Day Years Used Date Smoking Tobacco: Every Day Cigarettes 0.8 25 Smokeless Tobacco: Never Comments: 1 pack daily Alcohol Use Standard Drinks/Week Comments No 0 (1 standard drink = 0.6 oz pure alcoho l) 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 Date Recorded Male 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 His grandson and daughter live with him. His grandson has stage 1/2 kidney disease. Daughter works in a snf. Around noon yesterday came home from work. He slept all day yesterday. The patient reports that he had chest tightness and shortness of breath starting around 11am. The patient would get winded going up and down the stairs. This morning he has had chest pain still and shortness of breath. No significant cough. His temperature is 97. He has chest pain located substernal in his chest. The chest pain is a 3/10 and constant. After he ate dinner, the pain flared up further. He takes his prilosec every day. He had seen a GI doctor years ago and was found to have a hiatal hernia. If he is walking around, he reports that he becomes winded going up the stairs. The patient reports that his right lower back from his hip down started bothering him. He does not have swelling in his legs. He has a history of atrial fibrillation, elevated blood pressure, devendra cholesterol, and he smokes. No family history of early heart disease. Recommend ER, as patient has exertional dyspnea and chest pain- consider cardiac- CAD or atrial fibrillation; consider pulmonary etiology. Patient will have neighbor drive him to the closest ER, as he is not wanting to take an ambulance. He is 15 minutes from the nearest hospital. E-Visit time total (minutes): 27 minutes documented in this encounter Plan of Treatment Not on filedocumented as of this encounter Visit Diagnoses Diagnosis Dyspnea, unspecified type - Primary documented in this encounter Additional Health Concerns Assessment Noted Time PHQ-9 Depression Total Score: 0 06/10/2018 7:05 AM CDT documented as of this encounter Care Teams Necktie Centralizing Machine Operator Relationship Specialty Start Date End Date Leticia Armendariz MD PCP - General Internal Medicine 03/17/15 Nahum Lemus MD 09/16/[address] [place] [facility] [address] [facility] [place] [address] Karuna Ramirez MD MD Cardiology 09/16/16 Karime Castro DO Referring Physician Orthopedics 05/13/17 [facility]TS [facility] [address] [facility] [address] [place] [address] Tito Almonte MD MD Orthopedics 05/13/17 2450 [facility] [address] [place] [address] Kedar Rodriguez MD Assigned PCP 08/26/19 12/29/19 [address] [facility] 160 [place] [address] documented as of this encounter
--- OUTSIDE RECORDS SUMMARY | 2022-06-25 13:49 | XMS_ITS | Encounter Summary ---
:1965 Author Organization [facility] [place] Address [address] [place] [address] Care Team Providers Name Role Phone Leticia Armendariz MD Primary Care Provider Nahum Lemus MD Unavailable Karuna Ramirez MD Unavailable [phone] Karime Castro DO Unavailable Tito Almonte MD Unavailable Kedar Rodriguez MD Unavailable Reason for Visit Reason Onset Date Comments Refill Request 10/27/2019 Encounter Details Date Type Department Care Team Description 10/27/2019 MyC Refill [facility] Kedar Rodriguez MD Refill Request [place] [address] [facility] [address] [place] [address] [place] [address] [phone] Social History Tobacco Use Types Packs/Day Years Used Date Smoking Tobacco: Every Day Cigarettes 0.8 25 Smokeless Tobacco: Never Comments: 1 pack daily Alcohol Use Standard Drinks/Week Comments No 0 (1 standard drink = 0.6 oz pure alcoho l) 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 Date Recorded 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 See StayNTouch message. RATOR TENDER documented in this encounter Plan of Treatment Not on filedocumented as of this encounter Visit Diagnoses Diagnosis Tobacco abuse Tobacco use disorder documented in this encounter Additional Health Concerns Assessment Noted Time PHQ-9 Depression Total Score: 0 06/10/2018 7:05 AM CDT documented as of this encounter Care Teams It Field Technician Relationship Specialty Start Date End Date Leticia Armendariz MD PCP - General Internal Medicine 03/17/15 Nahum Lemus MD 09/16/16 [place] [facility] [address] [facility] [place] [address] Karuna Ramirez MD MD Cardiology 09/16/16 Karime Castro DO Referring Physician Orthopedics 05/13/17 [facility] [address] [facility] [address] [place] [address] Tito Almonte MD MD Orthopedics 05/13/17 2450 [facility] [address] [place], [place] [address] Kedar Rodriguez MD Assigned PCP 08/26/19 12/29/19 [address] [facility] [place], [place] [id number] documented as of this encounter
[2022-06-25 13:50] LABS: Slide Review Reflex No
--- OUTSIDE RECORDS SUMMARY | 2022-06-25 13:50 | XMS_ITS | Encounter Summary ---
:1965 Author Organization [facility] Address [address] [place] [address] Care Team Providers Name Role Phone Leticia Armendariz MD Primary Care Provider Nahum Lemus MD Unavailable Karuna Ramirez MD Unavailable [phone] Karime Castro DO Unavailable Tito Almonte MD Unavailable Leticia Armendariz MD Unavailable Leticia Armendariz MD Unavailable Reason for Visit Reason Onset Date Comments Refill Request 10/19/2018 zolpidem Encounter Details Date Type Department Care Team Description 10/19/2018 MyC Refill [facility] Leticia Armendariz Refill Request Clinic Demarco Bender MD (zolpidem) [address] [facility] [address] [address] [phone] Social History Tobacco Use Types Packs/Day Years Used Date Smoking Tobacco: Every Day Cigarettes Smokeless Tobacco: Never Comments: 1 pack daily Alcohol Use Standard Drinks/Week Comments No 0 (1 standard drink = 0.6 oz pure alcoho l) 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 Date Recorded 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 RX monitoring program ([place]) reviewed: MUTUAL FUND ANALYST reviewed- no concerns [place] profile: [email or web address] Please advise, thanks. ER documented in this encounter Plan of Treatment Not on filedocumented as of this encounter Visit Diagnoses Diagnosis Primary insomnia Persistent disorder of initiating or adrianne ntaining sleep documented in this encounter Additional Health Concerns Assessment Noted Time PHQ-9 Depression Total Score: 0 06/10/2018 7:05 AM CDT documented as of this encounter Care Teams Nutritionalist Relationship Specialty Start Date End Date Leticia Armendariz MD PCP - General Internal Medicine 03/17/15 Leticia Armendariz MD PCP - Assigned PCP 06/30/14 11/07/[address] [address] Nahum Lemus MD 09/16/16 [place] [facility] [address] [facility] [place] [address] Karuna Ramirez MD MD Cardiology 09/16/16 Karime Castro DO Referring Physician Orthopedics 05/13/17 [facility] [address] [facility] 300 [place] [address] Tito Almonte MD MD Orthopedics 05/13/[address] [place], [place] [address] Leticia Armendariz MD Assigned PCP 06/30/14 01/06/19 [place] [address] [place] [id number] documented as of this encounter
--- OUTSIDE RECORDS SUMMARY | 2022-06-25 13:50 | XMS_ITS | Encounter Summary ---
:1965 Author Organization [facility] Address [address] [place] [address] Care Team Providers Name Role Phone Leticia Armendariz MD Primary Care Provider Nahum Lemus MD Unavailable Karuna Ramirez MD Unavailable [phone] Karime Castro DO Unavailable Tito Almonte MD Unavailable Leticia Armendariz MD Unavailable Leticia Armendariz MD Unavailable Reason for Visit Reason Comments Medication Refill amLODIPine (NORVASC) Encounter Details Date Type Department Care Team Description 10/05/2018 Refill [facility] Leticia Armendariz Medication Refill Demarco Bender MD (amLODIPine (NORVASC)) [address] 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 DIANA Bradshaw, RN Flex Workforce Triage IC TANK INSTALLER Telephone Encounter - Shyann Wooten - 10/05/2018 8:35 AM CST Requested Prescriptions Pending Prescriptions Disp Refills ??? amLODIPine (NORVASC) 5 MG tablet [Pharmacy Med Name: AMLODIPINE BESYLATE 5 MG TAB] 90 tablet 1 Last Written Prescription Date: 04/10/2018 Last Fill Quantity: 90, # refills: 1 Last office visit: 07/17/2018 with prescribing provider: Future Office Visit: Sig: TAKE 1 TABLET BY MOUTH EVERY DAY Calcium Channel Blockers Protocol Passed - 10/05/2018 1:48 AM Passed - Blood pressure under 140/90 in past 12 months BP Readings from Last 3 Encounters: 07/21/18 129/83 07/17/18 138/89 07/10/18 118/72 Passed - Recent (12 mo) or future [...] past 12 months Recent Labs Lab Test 07/17/18 0919 10/26/15 1355 CR 1.04 < > -- CREAT -- -- 1.2 < > = values in this interval not displayed. IC TANK INSTALLER documented in this encounter Plan of Treatment Not on filedocumented as of this encounter Visit Diagnoses Diagnosis Atrial fibrillation status post cardiove rsion documented in this encounter Additional Health Concerns Assessment Noted Time PHQ-9 Depression Total Score: 0 06/10/2018 7:05 AM CDT documented as of this encounter Care Teams Mainframe Systems Administrator Relationship Specialty Start Date End Date Leticia Armendariz MD PCP - General Internal Medicine 03/17/15 Leticia Armendariz MD PCP - Assigned PCP 06/30/14 11/07/[address] [address] Nahum Lemus MD 09/16/16 [facility] [address] [facility] [address] [place] [id number] Karuna Ramirez MD MD Cardiology 09/16/16 Karime Castro DO Referring Physician Orthopedics 05/13/17 [facility] [address] [facility] [address] [place], [place] [address] Tito Almonte MD MD Orthopedics 05/13/[address] [place], [place] [address] Leticia Armendariz MD Assigned PCP 06/30/14 01/06/[address] [address] documented as of this encounter
--- OUTSIDE RECORDS SUMMARY | 2022-06-25 13:50 | XMS_ITS | Encounter Summary ---
:1965 Author Organization [place] Address [address] [place] [address] Care Team Providers Name Role Phone Leticia Armendariz MD Primary Care Provider Nahum Lemus MD Unavailable Karuna Ramirez MD Unavailable [phone] Karime Castro DO Unavailable Tito Almonte MD Unavailable Leticia Armendariz MD Unavailable Leticia Armendariz MD Unavailable Reason for Visit Reason Onset Date Comments Medication Request 07/28/2018 Alternative for Dicy clomine Encounter Details Date Type Department Care Team Description 07/28/2018 [facility] Leticia Armendariz Medicat ion Request Clinic Demarco Bender MD (Alternative for [address] [place] [address] [place] [facility] Dicyclomine ) [facility] [address] [address] [phone] Social History Tobacco Use Types Packs/Day Years Used Date Smoking Tobacco: Every Day Cigarettes Smokeless Tobacco: Never Comments: 1 pack daily Alcohol Use Standard Drinks/Week Comments No 0 (1 standard drink = 0.6 oz pure alcoho l) 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 Date Recorded 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 RER PLUMBING Telephone Encounter - Leticia Armendariz MD - 07/31/2018 12:39 PM LABORER PLUMBING Maybe patient can get at a different pharmacy. Patient is taking for IBS. Not sure if his insurance will cover hyoscyamine Please ask patient if would like to try a different pharmacy or check with insurance what they cover. RER PLUMBING Telephone Encounter - Megha Tarango - 07/28/2018 1:21 PM CST Fax received from [facility] in [place] requesting alternative for Dicyclomine. Medication is on Backorder/Univailable. Please advise. RER PLUMBING documented in this encounter Plan of Treatment Not on filedocumented as of this encounter Visit Diagnoses Not on filedocumented in this encounter Additional Health Concerns Assessment Noted Time PHQ-9 Depression Total Score: 0 06/10/2018 7:05 AM CDT documented as of this encounter Care Teams Him Manager Relationship Specialty Start Date End Date Leticia Armendariz MD PCP - General Internal Medicine 03/17/15 Leticia Armendariz MD PCP - Assigned PCP 06/30/14 [facility] [place] [address] [place] [address] Nahum Lemus MD 09/16/16 [facility] [address] [facility] [place] [id number] Karuna Ramirez MD MD Cardiology 09/16/16 Karime Castro DO Referring Physician Orthopedics 05/13/17 [facility] [address] [facility] [address] [place] [address] Tito Almonte MD MD Orthopedics 05/13/17 [id number] [place] [address] Leticia Armendariz MD Assigned PCP 06/30/14 01/06/19 [facility] [address] [place] [address] documented as of this encounter
--- OUTSIDE RECORDS SUMMARY | 2022-06-25 13:50 | XMS_ITS | Encounter Summary ---
:1965 Author Organization [facility] Address [address] [place] [address] Care Team Providers Name Role Phone Leticia Armendariz MD Primary Care Provider Nahum Lemus MD Unavailable Karuna Ramirez MD Unavailable [phone] Karime Castro DO Unavailable Tito Almonte MD Unavailable Ro Reyna NP Unavailable Reason for Referral Diagnostic Imaging XR (Routine) - Closed Specialty Diagnoses / Procedures Referred By Contact Refer red To Contact Radiology. Diagnoses Low back pain radiating to right leg Lumbar disc herniation with radiculopathy Jorge Young, Xray Rscc Procedures XR Lumbar Epidural Injection Incl Imaging [facility] [address] [place] [address] [address] [place] [phone] Fax: Referral ID Status Reason Start Date Expiration Date Visits Requ ested Visits Authorized [id number] Closed 02/13/2019 02/13/2020 1 1 Reason for Visit Diagnostic Imaging XR (Routine) - Closed Specialty Diagnoses / Procedures Referred By Contact Refer red To Contact Radiology. Diagnoses Low back pain radiating to right leg Lumbar disc herniation with radiculopathy Jorge Young, Rh Xray Rscc Procedures XR Lumbar Epidural Injection Incl Rex [facility] [address] [place] [address] [address] [facility] [address] [place] [phone] Fax: Referral ID Status Reason Start Date Expiration Date Visits Requ ested Visits Authorized [id number] Closed 02/13/2019 02/13/2020 1 1 Encounter Details Date Type Department Care Team Description 02/21[facility] Jorge Young Low back pain radiating to right leg; Encounter Corazon Gottlieb PA-C Lumbar disc herniation with radiculopath y [address] [place] [address] [place] [address] [address] [place] [address] [phone] (Wo rk) Social History Tobacco Use Types Packs/Day Years Used Date Smoking Tobacco: Every Day Cigarettes Smokeless Tobacco: Never Comments: 1 pack daily Alcohol Use Standard Drinks/Week Comments No 0 (1 standard drink = 0.6 oz pure alcoho l) 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 Date Recorded 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 Last Filed Vital Signs Vital Sign Reading Time Taken Comments Blood Pressure 126/81 02/21/2019 3:49 PM CDT Pulse 94 02/21/2019 3:49 PM CDT Temperature - - Respiratory Rate - [...] TAKE 1 TABLET BY 90 tablet 2 /09/201806/23/2019 tabletIndications: Atrial MOUTH EVERY DAY fibrillation status post cardioversion (H) cyclobenzaprine Take 1 tablet (10 40 tablet 0 02/16/2019 (FLEXERIL) 10 MG mg) by mouth 3 tabletIndications: Low times daily as back pain radiating to needed for muscle right leg spasms dicyclomine (BENTYL) 10 TAKE 1 CAPSULE BY 240 capsule 3 07/0703/26/2019 MG capsuleIndications: ORAL ROUTE 2-4 Irritable bowel syndrome, TIMES EVERY DAY unspecified type fenofibrate (TRICOR) 48 TAKE 2 TABLETS (96 180 tablet 1 10/0604/06/2019 MG tabletIndications: MG) BY MOUTH DAILY Elevated triglycerides with high cholesterol losartan (COZAAR) 50 MG TAKE 1 TABLET BY 90 tablet 1 201805/28/2019 tabletIndications: Atrial MOUTH EVERY DAY fibrillation status post cardioversion (H) oxyCODONE IR (ROXICODONE) Take 1-2 tablets 12 tablet 0 07/0603/26/2019 5 MG tabletIndications: (5-10 mg) by mouth Left inguinal hernia every 4 hours as needed for moderate to severe pain tamsulosin (FLOMAX) 0.4 Take 1 capsule 90 capsule 3 01/05/20 18 01/08/2021 MG capsuleIndications: (0.4 mg) by mouth Dysuria daily traMADol (ULTRAM) 50 MG Take 1 tablet (50 30 tablet 0 02/1604/04/2019 tabletIndications: Low mg) by mouth every back pain radiating to 6 hours as needed right leg for moderate pain or severe pain zolpidem (AMBIEN) 10 MG TAKE 1 TABLET BY 30 tablet 1 201803/13/2019 tabletIndications: MOUTH AT BEDTIME Primary insomnia NEEDED documented as of this encounter Progress Notes Bereket Bell PA - 02/21/2019 4:42 PM CDT RADIOLOGY PROCEDURE NOTE Patient name: Feng Perez : 1965 Pre-procedure diagnosis: Low back pain Post-procedure diagnosis: Same Procedure Date/Time: February 21, 2019 4:43 PM Procedure: Right L5-S1 TFESI Estimated blood loss: None Specimen(s) collected with description: none The patient tolerated the procedure well with no immediate complications. Significant findings:none See imaging dictation for procedural details. Provider name: Bereket Bell Studio Operations Manager(s):None Miroslava Rinaldi RN - 02/21/2019 4:31 PM CDT Pt here for Low back pain and right leg pain . Consent obtained by provider. Procedure performed by Bereket MITCHELL. Pt tolerated procedure well no complications. Pre procedure pain Low Back 5/Right Leg 5. Post procedure pain Low Back 3/Right Leg 3. Discharge instructions reviewed. Pt verified underst anding. Pt discharged in satisfactory condition to be driven home by spouse. documented in this encounter Plan of Treatment Not on filedocumented as of this encounter Procedures Procedure Name Priority Date/Time Associated Diagnosis Comme nts XR LUMBAR EPIDURAL Routine 02/21/2019 4:28 PM Low back pain Re sults for this INJECTION INCL CDT radiating to rig ht leg procedure are in IMAGING Lumbar disc herniation the r esults with radiculopathy section. documented in this encounter Results XR Lumbar Epidural Injection Incl Imaging (02/21/2019 4:28 PM CDT) Anatomical Region Laterality Modality Spine Radio Fluoroscopy Specimen (Source) Anatomical Location Collection Method / Collectio n Time Received Time / Laterality Volume Impressions 02/22/2019 10:04 AM CDT Impression: ??Technically successful ??transforaminal lumbar epidural steroid injection ??with favorable initi al pain relief. jail results pending. PAULA BOLIVAR-Deepali Narrative 02/22/2019 10:04 AM CDT XR LUMBAR EPIDURAL INJECTION INCL IMAGING ? 02/21/2019 4:28 PM ?? History: ??back pain radiating to right leg; Lumbar disc herniation with radiculopathy. Procedure: ??The risks (bleeding, infect ion, reaction to contrast and medications) and benefits of the procedu re were explained to the patient and consent was obtained. ??Dayanara alvarado sterile technique and fluoroscopic guidance a #22 gauge spinal needle was placed into the right L5-S1 foramen using a posterior- l ateral approach. ??A small amount of contrast was injected confirmi ng satisfactory position of the needle tip. ??20 mg of Dexamethasone mixed with 3 mL Lidocaine 1% were injected. ??No initial complication . ? Fluoroscopy time: ??0.5 minutes Number of Images: 2 Medications used: 3 mL lidocaine 1% loca l anesthetic The patient's pain levels (0-10 scale) w ere as follows: ? PRE INJECTION ? Low back ?5 ? Right leg ? 5 ? POST INJECTION Low back ? 3 Right leg ?3 Procedure Note Bereket Bell PA - 02/22/2019F ormatting of this note might be different from the original. XR LUMBAR EPIDURAL INJECTION INCL ROBE G 02/21/2019 4:28 PM History: back pain radiating to right le g; Lumbar disc herniation with radiculopathy. Procedure: The risks (bleeding, infectio n, reaction to contrast and medications) and benefits of the procedu re were explained to the patient and consent was obtained. Using sterile technique and fluoroscopic guidance a #22 gauge spinal needle was placed into the right L5-S1 foramen using a posterior- l ateral approach. A small amount of contrast was injected confirmi ng satisfactory position of the needle tip. 20 mg of Dexamethasone m ixed with 3 mL Lidocaine 1% were injected. No initial complication. Fluoroscopy time: 0.5 minutes Number of Images: 2 Medications used: 3 mL lidocaine 1% loca l anesthetic The patient's pain levels (0-10 scale) w ere as follows: PRE INJECTION Low back 5 Right leg 5 POST INJECTION Low back 3 Right leg 3 Impression: Technically successful trans foraminal lumbar epidural steroid injection with favorable initial pain relief. lobsterman results pending. BEREKET BELL PA-C Jorge Young PA-C IMG DIAGNOSTIC IMAGING ORDER WHITNEY documented in this encounter Visit Diagnoses Diagnosis Low back pain radiating to right leg Lumbago Lumbar disc herniation with radiculopath y Displacement of lumbar intervertebral di sc without myelopathy documented in this encounter Administered Medications Inactive Administered Medications - up to 3 most recent administrations Medication Order MAR Action Action Date Dose Rate Site dexamethasone PF (DECADRON) 10 MG/ML inj ection Starting on Tue02/21/19 at 1559, For 1 d ose, Miroslava Rinaldi : cabinet override For IV doses 1-20 mg, give IV Push undiluted over 1 minute . dexamethasone PF (DECADRON) injection 20 mg Given 02/21/2019 4:07 PM CDT 10 mg 20 mg, EPIDURAL, ONCE, Administer over 1 Minutes, On Tue02/21/19 at 1600, For 1 dose, For IV doses 1-20 mg, give IV Push undiluted over 1 minute., IR Pre-procedure iopamidol (ISOVUE-M 200) solution 10 mL Given 02/21/2019 4:06 PM CDT 10 mLs 10 mL, EPIDURAL, ONCE, On Tue02/21/19 at 1600, For 1 dose, IR Pre-procedure lidocaine (PF) (XYLOCAINE) 1 % injection 3 mL Given 02/21/2019 4:10 PM CDT 30 mLs 3 mL, EPIDURAL, ONCE, On Tue02/21/19 at 1600, For 1 dose, IR Pre-procedure lidocaine (PF) (XYLOCAINE) 1 % injection 5 mL Given 02/21/2019 4:05 PM CDT 30 mLs 5 mL, Subcutaneous, ONCE, On Tue02/21/19 at 1600, For 1 dose, IR Pre-procedure lidocaine (PF) (XYLOCAINE) 1 % injection Starting on Tue02/21/19 at 1559, For 1 dose, Miroslava Rinaldi : cabinet override documented in this encounter Additional Health Concerns Assessment Noted Time PHQ-9 Depression Total Score: 0 06/10/2018 7:05 AM CDT documented as of this encounter Care Teams Tub Washer Relationship Specialty Start Date End Date Leticia Armendariz MD PCP - General Internal Medicine 03/17/15 Nahum Lemus MD 09/16/16 [facility] [address] [facility] [address] [place] [phone] Karuna Ramirez MD MD Cardiology 09/16/16 Karime Castro DO Referring Physician Orthopedics 05/13/17 [facility] [address] [address] Tito Almonte MD MD Orthopedics 05/13/17 [address] [facility] [address] [place] [address] Ro Reyna NP Assigned PCP 01/07/19 08/25/19 [address] [place] [address] documented as of this encounter
--- OUTSIDE RECORDS SUMMARY | 2022-06-25 13:50 | XMS_ITS | Encounter Summary ---
:1965 Author Organization [place] Address [address] [place] [address] Care Team Providers Name Role Phone Leticia Armendariz MD Primary Care Provider Nahum Lemus MD Unavailable Karuna Ramirez MD Unavailable [phone] Karime Castro DO Unavailable Tito Almonte MD Unavailable Leticia Armendariz MD Unavailable Leticia Armendariz MD Unavailable Reason for Visit Reason Onset Date Comments Refill Request 07/24/2018 Dicyclomine Encounter Details Date Type Department Care Team Description 07/24/2018 MyC Refill [facility] Leticia Armendariz Refill Request Clinic Demarco Bender MD (Dicyclomine) [address] [facility] [address] [address] [phone] Social History Tobacco Use Types Packs/Day Years Used Date Smoking Tobacco: Every Day Cigarettes Smokeless Tobacco: Never Comments: 1 pack daily Alcohol Use Standard Drinks/Week Comments No 0 (1 standard drink = 0.6 oz pure alcoho l) 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 Date Recorded 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 Patient has been taking once per day. EL DEPARTMENT MANAGER Telephone Encounter - Mary Pan RN - 07/25/2018 8:51 AM CST Requested Prescriptions Pending Prescriptions Disp Refills ??? dicyclomine (BENTYL) 10 MG capsule Last Written Prescription Date: historic Last Fill Quantity: n/a, # refills: n/a Last office visit: 07/17/2018 with prescribing provider: Ro Future Office Visit: 240 capsule 3 Sig: TAKE 1 CAPSULE BY ORAL ROUTE 2-4 TIMES EVERY DAY Oral Anticholinergic Agents Passed 07/25/2018 8:51 AM Passed - Patient is of age 12 or older Passed - Recent (12 mo) or future (30 days) visit with authorizing provider's specialty Patient had office visit in the last 12 months or has a visit in the next 30 days with authorizing provider or within the authorizing provider's specialty. See Patient Info tab in inbasket, or Choose Columns in Meds & Orders section of the refill encounter. LED Engin message sent to patient to confirm dosing, who was ordering this and what he uses it for. Refill request can then be sent to PCP to review. EL DEPARTMENT MANAGER Telephone Encounter - Mary Pan RN - 07/25/2018 8:50 AM MUTUEL DEPARTMENT MANAGER Message from [place]: Original authorizing provider: MD Feng Gandhi would like a refill of the following medications: dicyclomine (BENTYL) 10 MG capsule [Leticia Armendariz MD] Preferred pharmacy: [facility] [address] [place] [address] Comment: EL DEPARTMENT MANAGER documented in this encounter Plan of Treatment Not on filedocumented as of this encounter Visit Diagnoses Diagnosis Irritable bowel syndrome, unspecified ty pe - Primary documented in this encounter Additional Health Concerns Assessment Noted Time PHQ-9 Depression Total Score: 0 06/10/2018 7:05 AM CDT documented as of this encounter Care Teams Senior Marketing Data Analyst Relationship Specialty Start Date End Date Leticia Armendariz MD PCP - General Internal Medicine 03/17/15 Leticia Armendariz MD PCP - Assigned PCP 06/30/14 11/07/18 [facility] [address] [address] Nahum Lemus MD 09/16/16 [facility] [address] [facility] [place] [address] Karuna Ramirez MD MD Cardiology 09/16/16 Karime Castro DO Referring Physician Orthopedics 05/13/17 [facility] [address] [facility] [address] [place], [place] [phone] Tito Almonte MD MD Orthopedics 05/13/[address] [place], [place] [address] Leticia Armendariz MD Assigned PCP 06/30/14 01/06/19 [facility] [address] [address] documented as of this encounter
--- OUTSIDE RECORDS SUMMARY | 2022-06-25 13:50 | XMS_ITS | Encounter Summary ---
:1965 Author Organization [place] Address [address] [place] [address] Care Team Providers Name Role Phone Leticia Armendariz MD Primary Care Provider Nahum Lemus MD Unavailable Karuna Ramirez MD Unavailable [phone] Karime Castro DO Unavailable Tito Almonte MD Unavailable Leticia Armendariz MD Unavailable Reason for Visit Reason Onset Date Comments Refill Request 11/16/2018 Zolpidem Encounter Details Date Type Department Care Team Description 11/16/2018 MyC Refill [facility] Leticia Armendariz Refill Request Clinic Demarco Bender MD (Zolpidem) [address] [facility] [address] [address] [phone] Social History Tobacco Use Types Packs/Day Years Used Date Smoking Tobacco: Every Day Cigarettes Smokeless Tobacco: Never Comments: 1 pack daily Alcohol Use Standard Drinks/Week Comments No 0 (1 standard drink = 0.6 oz pure alcoho l) 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 Date Recorded 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 zolpidem (AMBIEN) 10 MG tablet Last Written Prescription Date: 10/23/18 Last Fill Quantity: 30, # refills: 1 Last office visit: 07/17/2018 with prescribing provider: Ro; 01/03/[address] Armendariz Future Office Visit: 30 tablet 1 Sig: TAKE 1 TABLET BY MOUTH AT BEDTIME NEEDED There is no refill protocol information for this order Routing refill request to provider for review/approval because: Drug not on the [facility] refill protocol documented in this encounter Plan of Treatment Not on filedocumented as of this encounter Visit Diagnoses Diagnosis Primary insomnia Persistent disorder of initiating or adrianne ntaining sleep documented in this encounter Additional Health Concerns Assessment Noted Time PHQ-9 Depression Total Score: 0 06/10/2018 7:05 AM CDT documented as of this encounter Care Teams Photogrammetric Surveyor Relationship Specialty Start Date End Date Leticia Armendariz MD PCP - General Internal Medicine 03/17/15 Nahum Lemus MD 09/16/16 [facility] [address] [facility] [address] [place] [id number] Karuna Ramirez MD MD Cardiology 09/16/16 Karime Castro DO Referring Physician Orthopedics 05/13/17 [facility] [address] [address] Tito Almonte MD MD Orthopedics 05/13/[address] [place], [place] [address] Leticia Armendariz MD Assigned PCP 06/30/14 01/06/19 [place] [address] [place], [place] [id number] documented as of this encounter
--- OUTSIDE RECORDS SUMMARY | 2022-06-25 13:50 | XMS_ITS | Encounter Summary ---
:1965 Author Organization [place] Address [address] [place] [address] Care Team Providers Name Role Phone Leticia Armendariz MD Primary Care Provider Nahum Lemus MD Unavailable Karuna Ramirez MD Unavailable [phone] Karime Castro DO Unavailable Tito Almonte MD Unavailable Leticia Armendariz MD Unavailable Leticia Armendariz MD Unavailable Reason for Visit Reason Comments Medication Refill fenofibrate (TRICOR) 48 MG t ablet Encounter Details Date Type Department Care Team Description 10/18/2018 Refill [facility] Leticia Armendariz Medication Refill Demarco Bender MD (fenofibrate (TRICOR) 48 [address] [facility] MG tablet ) [address] [address] [phone] Social History Tobacco Use Types Packs/Day Years Used Date Smoking Tobacco: Every Day Cigarettes Smokeless Tobacco: Never Comments: 1 pack daily Alcohol Use Standard Drinks/Week Comments No 0 (1 standard drink = 0.6 oz pure alcoho l) 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 Date Recorded 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 fenofibrate (TRICOR) 48 MG tablet [Pharmacy Med Name: FENOFIBRATE 48 MG TABLET] 180 tablet 1 Last Written Prescription Date: 04/28/2018 Last Fill Quantity: 180, # refills: 1 Last office visit: 07/17/2018 with prescribing provider: Future Office Visit: Sig: TAKE 2 TABLETS (96 MG) BY MOUTH DAILY Fibrates Passed - 10/18/2018 1:36 AM Passed - Lipid panel on file [...] - Patient is age 18 or older PROCESSOR documented in this encounter Plan of Treatment Not on filedocumented as of this encounter Visit Diagnoses Diagnosis Elevated triglycerides with high cholest [place] Mixed hyperlipidemia documented in this encounter Additional Health Concerns Assessment Noted Time PHQ-9 Depression Total Score: 0 06/10/2018 7:05 AM CDT documented as of this encounter Care Teams Second Miller Relationship Specialty Start Date End Date Leticia Armendariz MD PCP - General Internal Medicine 03/17/15 Leticia Armendariz MD PCP - Assigned PCP 06/30/14 11/07/[address] [id number] Nahum Lemus MD 09/16/16 [facility] [address] [place] [address] Karuna Ramirez MD MD Cardiology 09/16/16 Karime Castro DO Referring Physician Orthopedics 05/13/17 [facility] [address] [facility] [address] [place], [place] [id number] Tito Almonte MD MD Orthopedics 05/13/[address] [place], [place] [address] Leticia Armendariz MD Assigned PCP 06/30/14 01/06/[address] [address] documented as of this encounter
--- OUTSIDE RECORDS SUMMARY | 2022-06-25 13:50 | XMS_ITS | Encounter Summary ---
:1965 Author Organization [place] Address [address] [place] [address] Care Team Providers Name Role Phone Leticia Armendariz MD Primary Care Provider Nahum Lemus MD Unavailable Karuna Ramirez MD Unavailable [phone] Karime Castro DO Unavailable Tito Almonte MD Unavailable Leticia Armendariz MD Unavailable Reason for Visit Reason Comments Medication Refill Encounter Details Date Type Department Care Team Description [facility] Angy Feliciano PA-C Medication Refill Clinic [address] [place] [address] [address] [place] [address] [place] [address] [phone] Social History Tobacco Use Types Packs/Day Years Used Date Smoking Tobacco: Every Day Cigarettes Smokeless Tobacco: Never Comments: 1 pack daily Alcohol Use Standard Drinks/Week Comments No 0 (1 standard drink = 0.6 oz pure alcoho l) 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 Date Recorded 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 Plan of Treatment Not on filedocumented as of this encounter Visit Diagnoses Diagnosis Dysuria documented in this encounter Additional Health Concerns Assessment Noted Time PHQ-9 Depression Total Score: 0 06/10/2018 7:05 AM CDT documented as of this encounter Care Teams Assistant Professor Of English Relationship Specialty Start Date End Date Leticia Armendariz MD PCP - General Internal Medicine 03/17/15 Nahum Lemus MD 09/16/16 [place] [facility] [address] [facility] [address] [place] [id number] Karuna Ramirez MD MD Cardiology 09/16/16 Karime Castro DO Referring Physician Orthopedics 05/13/17 [facility] [address] [facility] [address] [place], [place] [id number] Tito Almonte MD MD Orthopedics 05/13/17 [address] [facility] [address] [place], [place] [phone] Leticia Armendariz MD Assigned PCP 06/30/14 01/06/19 [facility] [address] [place] [id number] documented as of this encounter
--- OUTSIDE RECORDS SUMMARY | 2022-06-25 13:50 | XMS_ITS | Encounter Summary ---
:1965 Author Organization [facility] Address [address] [place] [id number] Care Team Providers Name Role Phone Leticia Armendariz MD Primary Care Provider Nahum Lemus MD Unavailable Karuna Ramirez MD Unavailable [phone] Karime Castro DO Unavailable Tito Almonte MD Unavailable Leticia Armendariz MD Unavailable Leticia Armendariz MD Unavailable Reason for Visit Auth/Cert Specialty Diagnoses / Procedures Referred By Contact Refer red To Contact Surgery Diagnoses left inguinal hernia Rh Periop Services Procedures HERNIORRHAPHY INGUINAL [address] [place], [place] [address] Phone: Fax: Referral ID Status Reason Start Date Expiration Date Visits Requ ested Visits Authorized [id number] 1 1 Encounter Details Date Type Department Care Team Description 07/21/2018 Surgery [facility] Jono Delarosa MD open left inguinal [facility] [address] [facility] hernia repair with mesh [address] [place], [place] [id number] [phone] Surgery Details Date/Time Status Location OR Service Patient Case Class Case Type Trauma Class Case? 07/21/18 7:30 Posted [facility] OR OR 02 General Same Day AM Surgery Panel 1 Procedure LRB Anes Op Region Wound Class Commen ts open left inguinal hernia repair with Left General Groin I-Clean mesh Surgeon Surgeon Role Service Panel Nilda Johnson PA-C Assisting Cell Technician Authorizati on 1 Jono Delarosa MD Primary General 1 Special Needs [id number], 212 lb H&P documented in this encounter Social History Tobacco Use Types Packs/Day Years Used Date Smoking Tobacco: Every Day Cigarettes Smokeless Tobacco: Never Comments: 1 pack daily Alcohol Use Standard Drinks/Week Comments No 0 (1 standard drink = 0.6 oz pure alcoho l) 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 Date Recorded Male 08/13/2020 9:06 AM MANAGER ED documented as of this encounter Last Filed Vital Signs Vital Sign Reading Time Taken Comments Blood Pressure 105/65 07/21/2018 9:00 AM MANAGER ED Pulse 74 07/21/2018 6:14 AM MANAGER ED Temperature 36.3 ??C (97.4 ??F) 07/21/2018 8:34 AM MANAGER ED Respiratory Rate 12 07/21/2018 9:00 AM MANAGER ED Oxygen Saturation 91% 07/21/2018 9:00 AM MANAGER ED Inhaled Oxygen Concentration - - Weight 94.3 kg (208 lb) 07/21/2018 6:10 AM MANAGER ED Height 177.8 cm (5' 10) 07/21/2018 6:14 AM MANAGER ED per pt Body Mass Index 29.84 07/21/2018 6:10 AM MANAGER ED documented in this encounter Discharge Instructions Discharge Cecelia Mcginnis RN - 07/21/2018 9:00 AM CST HOME CARE FOLLOWING INGUINAL/FEMORAL HERNIA REPAIR Stefany Kimbrough N. Guttormson, D. Maurer, R. O???Denisse Kinney DIET: No restrictions. Increased fluid intake is recommended. While taking pain medications, increase dietary fiber or add a fiber supplementation like Metamucil or Citrucel to help prevent constipation - a possible side effect of pain medications. NAUSEA: If nauseated from the anesthetic/pain meds; rest in bed, get up cautiously with assistance, and drink clear liquids (juice, tea, broth). ACTIVITY: Light Activity -- you may immediately be up and about as tolerated. Driving -- you may drive when comfortable and off narcotic pain medications. Light Work -- resume when comfortable off pain medications. (If you can drive, you probably can work.) Strenuous Work/Activity -- limit lifting to 20 pounds for 3 weeks. Active Sports (running, biking, etc.) -- cautiously resume after 4 weeks. INCISIONAL CARE: ??? If you have a dressing in place, keep clean and dry for 48 hours; you may replace the gauze if it becomes soiled. ??? After 48 hours you may remove the dressing and shower. Do not submerse incision in water for 1 week. ??? Sutures will absorb and need not be removed. ??? If present, leave the steri-strips (white paper tapes) in place for 14 days after surgery. ??? Expect a variable amount of swelling/black and blue discoloration that may involve the penis/scrotum or labia. ??? Some numbness around the incision is common. ??? A lump/ridge under the incision is normal and will gradually resolve. DISCOMFORT: Local anesthetic placed at surgery should provide relief for 4-8 hours. Begin taking pain pills before discomfort is severe. Take the pain medication with some food, when possible, to minimize side effects. Intermittent use of ice packs to the hernia repair site may help during the first 1-3 weeks after surgery. Expect gradual improvement. Mkhz-rrk-hshcunl anti-inflammatory medications (i.e. Ibuprofen/Advil/Motrin or Naprosyn/Aleve) may be used per package instructions in addition to or while tapering off the narcotic pain medications todecrease swelling and sensitivity at the repair site. DO NOT TAKE these Anti-inflammatory medications if your primary physician has advised against doing so, or if you have acid reflux, ulcer, or bleeding disorder, or take blood-thinner medications. Call your primary physician or the surgery office ifyou have medication questions. RETURN APPOINTMENT: Schedule a follow-up visit 2-3 weeks post-op. Office CONTACT US IF THE FOLLOWING DEVELOPS: 1. A fever that is above 101?? 2. If there is a large amount of drainage, bleeding, or swelling. 3. Severe pain that is not relieved by your prescription. 4. Drainage that is thick, cloudy, yellow, green or white. 5. Any other questions not answered by ???Frequently Asked Questions?? sheet. FREQUENTLY ASKED QUESTIONS: Q: How should my incision look? A: Normally your incision will appear slightly swollen with light redness directly along the incision itself as it heals. It may feel like a bump or ridge as the healing/scarring happens, and over time(3-4 months) this bump or ridge feeling should slowly go away. In general, clear or pink watery drainage can be normal at first as your incision heals, but should decrease over time. Q: How do I know if my incision is infected? A: Look at your incision for signs of infection, like redness around the incision spreading to surrounding skin, or drainage of cloudy or foul-smelling drainage. If you feel warm, check your temperature to see if you are running a fever. If any of these things occur, please notify the nurse at our office. We may need you to come into the office for an incision check. Q: How do I take care of my incision? A: If you have a dressing in place - Starting the day after surgery, replace the dressing 1-2 times a day until there is no further drainage from the incision. At that time, a dressing is no longer needed. Try to minimize tape on the skin if irritation is occurring at the tape sites. If you have significant irritation from tape on the skin, please call the office to discuss other method of dressing your incision. Small pieces of tape called ???steri-strips?? may be present directly overlying your incision; these may be removed 10 days after surgery unless otherwise specified by your surgeon. If these tapes start to loosen at the ends, you may trim them back until they fall off or are removed. Q: There is a piece of tape or a sticky ???lead?? still on my skin. Can I remove this? A: Sometimes the sticky ???leads?? used for monitoring during surgery or for evaluation in the emergency department are not all removed while you are in the hospital. These sometimes have a tab or metal dot on them. You can easily remove these on your own, like taking off a band-aid. If there is a gel substance under the ???lead?? , simply wipe/clean it off with a washcloth or paper towel. Q: What can I do to minimize constipation (very hard stools, or lack of stools)? A: Stay well hydrated. Increase your dietary fiber intake or take a fiber supplement -with plenty ofwater. Walk around frequently. You may consider an tant-izp-rlzuxmx stool-softener. Your Pharmacist can assist you with choosing one that is stocked at your pharmacy. Constipation is also one of the most common side effects of pain medication. If you are using pain medication, be pro-active and try toPREVENT problems with constipation by taking the steps above BEFORE constipation becomes a problem. Q: What do I do if I need more pain medications? A: Call the office to receive refills. Be aware that certain pain meds cannot be called into a pharmacy and actually require a paper prescription. A change may be made in your pain med as you progress thru your recovery period or if you have side effects to certain meds. --Pain meds are NOT refilled after 5pm on weekdays, and NOT AT ALL on the weekends, so please look ahead to prevent problems. Q: Why am I having a hard time sleeping now that I am at home? A: Many medications you receive while you are in the hospital can impact your sleep for a number of days after your surgery/hospitalization. Decreased level of activity and naps during the day may alsomake sleeping at night difficult. Try to minimize day-time naps, and get up frequently during the day to walk around your home during your recovery time. Sleep aides may be of some help, but are not recommended for long-term use. Q: I am having some back discomfort. What should I do? A: This may be related to certain positioning that was required for your surgery, extended periods of time in bed, or other changes in your overall activity level. You may try ice, heat, acetaminophen,or ibuprofen to treat this temporarily. Note that many pain medications have acetaminophen in them and would state this on the prescription bottle. Be sure not to exceed the maximum of 4000mg per day of acetaminophen. If the pain you are having does not resolve, is severe, or is a flare of back pain you have had onother occasions prior to surgery, please contact your primary physician for further recommendations or for an appointment to be examined at their office. Q: Why am I having headaches? A: Headaches can be caused by many things: caffeine withdrawal, use of pain meds, dehydration, high blood pressure, lack of sleep, over-activity/exhaustion, flare-up of usual migraine headaches. If youfeel this is related to muscle tension (a band-like feeling around the head, or a pressure at the low-back of the head) you may try ice or heat to this area. You may need to drink more fluids (try electrolyte drink like Gatorade), rest, or take your usual migraine medications. If your headaches do not resolve, worsen, are accompanied by other symptoms, or if your blood pressure is high, please call your primary physician for recommendation and/or examination. Q: I am unable to urinate. What do I do? A: A small percentage of people can have difficulty urinating initially after surgery. This includesbeing able to urinate only a very small amount at a time and feeling discomfort or pressure in the very low abdomen. This is called ???urinary retention?? , and is actually an urgent situation. Proceedto your nearest Emergency department for evaluation (not an Urgent Care Center). Sometimes the bladder does not work correctly after certain medications you receive during surgery, or related to certain procedures. You may need to have a catheter placed until your bladder recovers. When planning to goto an Emergency department, it may help to call the ER to let them know you are coming in for this problem after a surgery. This may help you get in quicker to be evaluated. If you have symptoms of a urinary tract infection, please contact your primary physician for the proper evaluation and treatment. If you have other questions, please call the office Tuesday thru Tuesday between 8am and 5pm to discuss with the nurse or physician assistant spa director. # There is a surgeon [employer] on weekday evenings and over the weekend in case of urgent need only, andmay be contacted at the same number. If you are having an emergency, call 911 or proceed to your nearest emergency department. GENERAL ANESTHESIA OR SEDATION ADULT DISCHARGE INSTRUCTIONS [...] STILL NOT ABLE TO URINATE (PASS WATER). You received Toradol, an IV form of ibuprofen (Motrin) at 7:30. Do not take any ibuprofen products until 1:30pm. GER ED documented in this encounter Medications at Time of Discharge Medication Sig Dispensed Refills Start Date End Date omeprazole (PRILOSEC) 20 Take 20 mg by mouth 0 MG CR capsule daily amLODIPine (NORVASC) 5 TAKE 1 TABLET (5 90 tablet 1 018 10/05/2018 MG tabletIndications: MG) BY MOUTH DAILY Atrial fibrillation status post cardioversion (H) dicyclomine (BENTYL) 10 TAKE 1 CAPSULE BY 240 capsule 3 03/0607/24/2018 MG capsule ORAL ROUTE 2-4 TIMES EVERY DAY fenofibrate 48 MG Take 2 tablets (96 180 tablet 1 04/28/2018 10/18/2018 tabletIndications: mg) by mouth daily Elevated triglycerides with high cholesterol losartan (COZAAR) 50 MG TAKE 1 TABLET (50 90 tablet 1 06/2812/21/2018 tabletIndications: MG) BY MOUTH DAILY Atrial fibrillation status post cardioversion (H) oxyCODONE IR Take 1-2 tablets 12 tablet 0 07/21/20182018 (ROXICODONE) 5 MG (5-10 mg) by mouth tabletIndications: Left every 4 hours as inguinal hernia needed for moderate to severe pain tamsulosin (FLOMAX) 0.4 Take 1 capsule (0.4 90 capsule 3 10/201701/08/2021 MG capsuleIndications: mg) by mouth daily Dysuria zolpidem (AMBIEN) 10 MG TAKE 1 TABLET BY 30 tablet 1 201710/19/2018 tabletIndications: MOUTH AT BEDTIME Primary insomnia NEEDED documented as of this encounter H&P Notes Amaya Arrington - 07/20/2018 10:56 AM CST This note is for the purpose of making the H&P performed in clinic within the last 30 days available in the hospital surgical encounter. GER ED Source Note - Ro Reyan NP - 07/17/2018 8:37 AM MANAGER ED [address] [address] Dept: [phone] PRE-OP EVALUATION: Today's date: 07/17/2018 Feng Perez (: 1965) presents for pre-operative evaluation assessment as requested by Dr. Rausch. He requires evaluation and anesthesia risk assessment prior to undergoing surgery/procedurefor treatment of Left inguinal hernia . Fax number for surgical facility: [facility] Primary Physician: Leticia Armendariz Type of Anesthesia Anticipated: General Patient has a Health Care Directive or Living Will: NO Preop Questions 07/15/2018 Who is doing your surgery? [facility] consultant What are you having done? Hernia repair. Left inguinal Date of Surgery/Procedure: 07-21-18 Facility or Hospital where procedure/surgery will be performed: [facility] 1. Do you have a history of Heart attack, stroke, stent, coronary bypass surgery, or other heart surgery? No 2. Do you ever have any pain or discomfort in your chest? No 3. Do you have a history of Heart Failure? No 4. Are you troubled by shortness of breath when: walking on a level surface, or up a slight hill, orat night? YES - smoker 5. Do you currently have a cold, bronchitis or other respiratory infection? No 6. Do you have a cough, shortness of breath, or wheezing? No 7. Do you sometimes get pains in the calves of your legs when you walk? No 8. Do you or anyone in your family have previous history of blood clots? No 9. Do you or does anyone in [...] drowsiness? No 15. Do you have any prosthetic heart valves? No 16. Do you have prosthetic joints? No HPI: HPI related to upcoming procedure: Left inguinal hernia See problem list for active medical problems. Problems all longstanding and stable, except as noted/documented. See ROS for pertinent symptoms related to these conditions. . MEDICAL HISTORY: Patient Active Problem List Diagnosis [...] Date ??? A-fib (H) ??? Arrhythmia afib ablation ??? Atrial fibrillation (H) ??? Complication of anesthesia ??? Hepatitis 15 yrs ago from bad food ??? Hypertension ??? Palpitations Past Surgical History: Procedure Laterality Date ??? COLONOSCOPY N/A 06/25/2015 Procedure: COLONOSCOPY; Surgeon: Haven Sosa MD; Location: [facility] ??? FUSION CERVICAL ANTERIOR ONE LEVEL 04/15/2014 Procedure: FUSION CERVICAL ANTERIOR ONE LEVEL; Surgeon: Umang Sandoval MD; Location: [facility] ??? GENITOURINARY SURGERY vasectomy ??? TESTICLE SURGERY ??? VASECTOMY ??? VASOVASOSTOMY Current Outpatient Prescriptions Medication Sig Dispense Refill ??? amLODIPine (NORVASC) 5 MG tablet TAKE 1 TABLET (5 MG) BY MOUTH DAILY 90 tablet 1 ??? dicyclomine (BENTYL) 10 MG capsule TAKE 1 CAPSULE BY ORAL ROUTE 2-4 TIMES EVERY DAY 240 capsule 3 ??? fenofibrate 48 MG tablet Take 2 tablets (96 mg) by mouth daily 180 tablet 1 ??? losartan (COZAAR) 50 MG tablet TAKE 1 TABLET (50 MG) BY MOUTH DAILY 90 tablet 1 ??? omeprazole (PRILOSEC) 20 MG CR capsule Take 20 mg by mouth daily ??? tamsulosin (FLOMAX) 0.4 MG capsule Take 1 capsule (0.4 mg) by mouth daily 90 capsule 3 ??? zolpidem (AMBIEN) 10 MG tablet TAKE 1 TABLET BY MOUTH AT BEDTIME NEEDED 30 tablet 1 ??? [DISCONTINUED] fenofibrate 48 MG tablet Take 96 mg by mouth OTC products: None, except as noted above No Known Allergies Latex Allergy: NO Social History Substance Use Topics ??? Smoking status: Current Every Day Smoker Types: Cigarettes ??? Smokeless tobacco: Never Used Comment: 1 pack daily ??? Alcohol use No History Drug Use No Comment: clean for 13 years- cocaine REVIEW OF SYSTEMS: CONSTITUTIONAL: NEGATIVE for fever, chills, change in weight RESP: NEGATIVE for significant cough or SOB [...] for changes in mood or affect EXAM: BP 138/89 (BP Location: Right arm, Patient Position: Sitting, Cuff Size: Adult Large) Pulse 97 Temp 98.1 ??F (36.7 ??C) (Oral) Resp 16 Ht 5' 10 (1.778 m) Wt 212 lb 1.6 oz (96.2 kg) SpO2 97% BMI 30.43 kg/m2 GENERAL APPEARANCE: healthy, alert and no distress NECK: no adenopathy, no asymmetry, masses, or [...] appears normal. and affect normal/bright DIAGNOSTICS: EKG: Normal Sinus Rhythm Recent Labs Lab Test 07/07/18 1155 01/09/18 0824 HGB 15.8 14.8 PLT 203 210 NA 140 142 POTASSIUM 4.3 4.2 CR 1.06 0.87 IMPRESSION: Reason for surgery/procedure: Left inguinal hernia The proposed surgical procedure is considered INTERMEDIATE risk. REVISED CARDIAC RISK INDEX The patient has the following serious cardiovascular risks for perioperative complications such as (IN, PE, VFib and 3?? AV Block): No [...] evaluation report is provided to requesting physician. [facility] Preop Guidelines Revised Cardiac Risk Index GER ED documented in this encounter Miscellaneous Notes Op Note - Jono Delarosa MD - 07/21/2018 8:23 AM CST General Surgery Operative Note Pre-operative diagnosis: Left inguinal hernia Post-operative diagnosis: Left inguinal hernia, indirect Procedure: Indirect left inguinal hernia repair with Ultrapro hernia system (large size) Surgeon: Jono Delarosa MD Cell Technician(s): SANDEE Martinez PA was medically necessary for their expertise in prepping, retracting, exposure, and suctioning. Anesthesia: General Estimated blood loss: Complications: 5 cc None Specimens: * No specimens in log * DESCRIPTION OF PROCEDURE: The patient was placed on the table in supine position. General endotracheal anesthesia was induced and the abdomen was prepped and draped in sterile fashion. A pause was performed, the site had been marked with the patient in pre-induction. An inguinal incision was made on the left side and was carried down through the subcutaneous tissue. The external oblique aponeurosis was cleared of subcutaneous tissue. The external oblique aponeurosis was incised parallel to its fibers through the external ring. Flaps were developed superomedially and inferolaterally. The cord was encircled with a isidro drain at the level of the pubic tubercle. This allowed for good exposure of the inguinal canal. This revealed an intact floor of the inguinal canal. We then performed a thorough evaluation of the spermatic cord. Cremaster fibers were split and the nerve was preserved. There was amoderate indirect hernia defect noted. The sac was mobilized from normal cord structures and reduced. The pre-peritoneal space was developed to accept the inner layer of the Ultrapro hernia system. Theoperative field and the Ultrapro mesh were irrigated with irricept and rinsed. The inner layer of the mesh was carefully deployed in the preperitoneal space. The outer layer was deployed. A slit had been cut for egress of the cord and nerve. This was coapted adjacent to the cord, thus re- enforcing theinternal ring. The medial portion of the outer layer was sutured to the inguinal ligament (wrapping the ligament with the mesh), overlapped and sutured adjacent to the pubic tubercle and then sutured to the anterior rectus sheath as far medially as possible. The other portion of the outer layer was tuc ked up under the external oblique aponeurosis. The cord was evaluated with a sterile doppler and excellent arterial and venous signals were noted. There was no venous engorgement of the cord. Local anesthetic was injected for post op pain relief. . We inspected for hemostasis and irrigated with sterile saline. We closed the external oblique aponeurosis with a 2-0 PDS suture in running fashion. The Edelmira's fascia was closed with 2-0 PDS sutures. The skin was closed with a running 4-0 Vicryl subcuticular suture and dressings were applied. The patient tolerated the procedure well. Sponge, needle and instrument counts were correct at the end of the case. The testicle position was verified after the procedure. Jono Delarosa MD GER ED Provider Notification - Reba Rojas RN - 07/18/2018 1:43 PM CST [facility] contacted today and spoke to Nurse regarding pt. Lab results - WBC 12.4. Nurse to consult with And call us back. GER ED documented in this encounter Plan of Treatment Not on filedocumented as of this encounter Procedures Procedure Name Priority Date/Time Associated Diagnosis Comme nts HERNIORRHAPHY, 07/21/2018 7:26 AM MANAGER ED left inguinal h ernia INGUINAL, OPEN Special Needs [id number], 212 lb H&P documented in this encounter Visit Diagnoses Not on filedocumented in this encounter Administered Medications Inactive Administered Medications - up to 3 most recent administrations Medication Order MAR Action Action Date Dose Rate Site bupivacaine 0.25 % - Given 07/21/2018 8:19 AM 30 mLs Operative EPINEPHrine 1:200,000 MANAGER ED Sit e/Surgical Site (PF) injection PRN, Starting on Tue07/21/18 at 0819, Intra-procedure chlorhexidine 0.05% in Given 07/21/2018 8:06 AM 200 mLs Operative Site/Surgical water for irrigation MANAGER ED Site (IRRESEPT) PRN, Starting on Tue07/21/18 at 0806, Intra-procedure naloxone (NARCAN) injection 0.1-0.4 mg 0.1-0.4 mg, Intravenous, EVERY 2 MIN PRN , opioid reversal, Starting on Tue07/21/18 at 0835, For 24 hours, For apnea or imminent respirato ry arrest: give 0.4 mg IV undiluted Q 2 minutes PRN until desired degree of reversal is obtained, stop opioid and notify provider. Continue monitoring until dischar ge criteria are met for a minimum of 2 hours. For severe sedation, decrease in respiratory depth, quality or respiratory rate less than 8: give 0.1 m g IV Q 2 minutes x 3 doses, stop opioid and notify provider. Try to minimize reversa l of analgesia especially in end-of-life patients For ordered IV doses 0.1-2mg gi ve IVP. Give each 0.4mg over 15 seconds in emergency situations. For non-emergent s ituations further dilute in 9mL of NS to facilitate titration of response., Post-procedure tamsulosin (FLOMAX) capsule 0.4 mg 0.4 mg, Oral, ONCE PRN, If ruvalcaba placed for urinary re tention AND history of previous postoperative Urinary Retention OR male age >50, Starting on Tue07/21/18 at 0835, For 1 dose, Capsules should be swallowed whol e; do not crush chew or open., PACU/Phase II documented in this encounter Active and Recently Administered Medications Times are shown in MANAGER ED. Scheduled Medication Order 07/19/2018 07/20/2018 07/21/2018 ceFAZolin (ANCEF) intermittent infusion 2 g in 100 mL dextrose PRE-MIX (COMPLETED) 0724 (Given - Provid er: Alisha Rowe APRN CRNA) 2 g, Intravenous, PRE-OP/PRE-PROCEDURE, Starting Tue07/21/18 at 0608, For 1 dose, Give first dose within 1 hour PRIOR to incision. If patient weight is greater than or equal to 120 kg increase dose to 3 g., Indications: Perioperative Pharmacoprophylaxis, Pre-proced ure Continuous Medication Order 07/19/2018 07/20/2018 07/21/2018 lactated ringers infusion (CANCELED) 0724 (New Bag - Provider: Alisha Rowe APRN CRNA)0817 (New Bag - Provider: Alisha Rowe APRN CRNA) at 25 mL/hr, Intravenous, CONTINUOUS, IF patient NOT on dialysis., Pre- procedure, Starting Tue07/21/18 at 0615, Until Tue07/21/18 at 0834 PRN Medication Order 07/19/2018 07/20/2018 07/21/2018 bupivacaine 0.25 % - EPINEPHrine 1:200,000 (PF) injection (CANCE LED) 0819 (Given - Provider: Jono Delarosa MD - Comment: topical and injection) PRN, Starting Tue07/21/18 at 0819, Intra-procedure chlorhexidine 0.05% in water for irrigation (IRRESEPT) (CANCELED ) 08 (Given - Provider: Jono Delarosa MD - Comment: mesh soaked in irrisept prior to implantation) PRN, Starting Tue07/21/18 at 0806, Intra-procedure lidocaine 1 % 1 mL (CANCELED) 07 (Given - Provider: Kostas Arreaga MD) 1 mL, Other, EVERY 1 HOUR PRN, mild pain with VAD insertion or accessing implanted port, Starting Tue07/21/18 at 0611, Do NOT give if patient has a history of allergy to any local anesthetic or any ca ine product. MAX dose 1 mL subcutaneous OR intradermal in divided doses., Pre-procedure naloxone (NARCAN) injection 0.1-0.4 mg 0.1-0.4 mg, Intravenous, EVERY 2 MIN PRN , opioid reversal, Starting Tue07/21/18 at 0835, For 24 hours, For apnea or imminent respiratory arrest: give 0.4 mg IV undiluted Q 2 minutes PRN until desired d egree of reversal is obtained, stop opio id and notify provider. Continue monitoring until discharge criteria are met for a minimum of 2 hours. For severe sedation, decrease in respiratory depth, quality or respiratory rate less than 8: give 0 .1 mg IV Q 2 minutes x 3 doses, stop opioid and notify provider. Try to minimize reversal of analgesia especially in end-of-life patients For ordered IV doses 0.1 -2mg give IVP. Give each 0.4mg over 15 s econds in emergency situations. For non- emergent situations further dilute in 9mL of NS to facilitate titration of response., Post-procedure oxyCODONE IR (ROXICODONE) tablet 5 mg 5 mg, Oral, ONCE PRN, other, pain contro l or improvement in physical function.??, Starting Tue07/21/18 at 0835, For 1 dose, Notify provider to assess for uncontrolled pain or analgesic side effects., Post-procedure tamsulosin (FLOMAX) capsule 0.4 mg 0.4 mg, Oral, ONCE PRN, If ruvalcaba placed for urinary retention AND history of previous postoperative Urinary Retention OR male age >50, Starting Tue07/21/18 at 0835, For 1 dose, Capsules should be sw allowed whole; do not crush chew or open., PACU/Phase II documented in this encounter Additional Health Concerns Assessment Noted Time PHQ-9 Depression Total Score: 0 06/10/2018 7:05 AM CDT documented as of this encounter Care Teams Therapy Teacher Relationship Specialty Start Date End Date Leticia Armendariz MD PCP - General Internal Medicine 03/17/15 Leticia Armendariz MD PCP - Assigned PCP 06/30/14 11/07/[address] [facility] [address] [place] [address] Nahum Lemus MD 09/16/16 [facility] [address] [facility] [place] [id number] Karuna Ramirez MD MD Cardiology 09/16/16 Karime Castro DO Referring Physician Orthopedics 05/13/17 [facility] [address] [facility] [address] [place], [place] [id number] Tito Almonte MD MD Orthopedics 05/13/17 [address] [facility] [address] [place], [place] [address] Leticia Armendariz MD Assigned PCP 06/30/14 01/06/[address] [facility] [address] [address] documented as of this encounter
--- OUTSIDE RECORDS SUMMARY | 2022-06-25 13:50 | XMS_ITS | Encounter Summary ---
:1965 Author Organization [facility] Address [address] [facility] [place] [address] Care Team Providers Name Role Phone Leticia Armendariz MD Primary Care Provider Nahum Lemus MD Unavailable Karuna Ramirez MD Unavailable [phone] Karime Castro DO Unavailable Ttio Almonte MD Unavailable Leticia Armendariz MD Unavailable Leticia Armendariz MD Unavailable Reason for Visit Auth/Cert Specialty Diagnoses / Procedures Referred By Contact Refer red To Contact Surgery Diagnoses left inguinal hernia Rh Periop Services Procedures HERNIORRHAPHY INGUINAL [address] [place], [place] [address] Phone: Fax: Referral ID Status Reason Start Date Expiration Date Visits Requ ested Visits Authorized [id number] 1 1 Encounter Details Date Type Department Care Team Description 07/21/2018 Anesthesia Event [facility] Jeff Arreaga Ahmet PeriOp Services MD [facility] [address] [place] [address] ANESTHESIA [id number] [place], [place] [address] (Wo rk) Anesthesia Record Procedure Summary Procedure Name Responsible Anesthesia Start Anesthesia Stop Time Anesthesiologist Time open left inguinal Kostas Arreaga Ahmet 07/21/18 0724 07/21/18 0848 hernia repair with MD [facility] mesh (Left: Groin) Events Date Time Event Comment 07/21/2018 0724 An Start 0724 MD Present 0727 An Start Data 0727 MD Present 0729 An Induction 0729 MD Present 0730 AN START SEVO 0731 An LMA 0731 MD Present 0734 MD Present 0820 Present 0823 AN END SEVO 0833 an stop data 0838 MD Present 0844 MD Present 0848 An Stop Electronically s igned by Alisha Rowe on July 21 8 8:48 AM 0848 MD Present Name Total midazolam 1mg/mL 4 mg fentaNYL (SUBLIMAZE) injection 100 mcg propofol (DIPRIVAN) injection 10 mg/mL vial 200 mg propofol infusion (mcg/kg/min) 216.89 mg glycopyrrolate 0.2mg/mL 0.2 mg rocuronium 10 mg/mL 20 mg ondansetron 2mg/mL 4 mg dexamethasone 4 mg/mL 8 mg ketorolac 30 mg/mL 30 mg HYDROmorphone 1 mg/mL 1 mg phenylephrine 10mg/mL 300 mcg lidocaine 1 % 1 mL 30 mg ceFAZolin (ANCEF) intermittent infusion 2 g in 100 mL dextrose PRE-MIX 2 g lactated ringers infusion 1,000 mL Agents Name NO HELIOX O2 N2O Air Exp Sevoflurane Exp Isoflurane Exp Desflurane Exp N2O Ins Sevoflurane Ins Isoflurane Ins Desflurane O2 Auxiliary Blood No blood administrations on file. Lines, Drains, and Airways Type Details Placement Removal Incision/Surgical Site 04/15/14; 1233; Neck 04/15/14 1233 by Chela Coppola RN Incision/Surgical Site 07/21/18; 0750; Left; 07/21/18 0750 by Janae Steve, [place] Arterial Sheath 06/26/13; 1026; 4 Fr; 06/26/13 1026 by 02/05/20 1005 by Femoral; Right; Marixa Zepeda Olson, Lynn Biring; 02/05/20; 1005 RN Retired Non-Surgical 07/21/18 0848 by 07/21/18 0 848 by Airway Semaj Rowe APRN COAL SAMPLER Retired Non-Surgical 07/21/18; 0731; Easy; 07/21/18 0731 by 07/06 02/20 0848 by Airway Intravenous; Easy; 5; Alisha Rowe J ennifer, RN laryngeal mask airway; BRUCE Bender CRNA center of mouth; Equal, clear and bilateral; COAL SAMPLER; KB; Spontaneous ventilation, Adequate tidal volume, Follows commands, Transported with oxygen, Purposeful movement; End of therapy Peripheral IV 07/21/18; 0834; 20 G; 07/21/18 0834 by 07/21/18 1106 by Left; Cecelia Cavazos RN Ries, Kristen M, RN documented in this encounter Social History Tobacco Use Types Packs/Day Years Used Date Smoking Tobacco: Every Day Cigarettes Smokeless Tobacco: Never Comments: 1 pack daily Alcohol Use Standard Drinks/Week Comments No 0 (1 standard drink = 0.6 oz pure alcoho l) 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 Date Recorded 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 encounter OR Notes Anesthesia Postprocedure Evaluation - Kostas Arreaga MD - 07/21/2018 9:40 AM CST Patient: Feng Perez Procedure(s): open left inguinal hernia repair with mesh Diagnosis: left inguinal hernia Diagnosis Additional Information: JOHN Delarosa Anesthesia Type: General, LMA Note: Anesthesia Post Evaluation Patient location during evaluation: PACU Patient participation: Able to fully participate in evaluation Level of consciousness: awake Pain management: adequate Airway patency: patent Cardiovascular status: acceptable Respiratory status: acceptable Hydration status: acceptable PONV: none Last vitals: Vitals: 07/21/18 0845 07/21/18 0900 07/21/18 0915 BP: 93/57 105/65 108/68 Pulse: Resp: 16 12 8 Temp: 97.8 ??F (36.6 ??C) SpO2: 97% 91% 92% Electronically Signed By: Kostas Arreaga MD July 21, 2018 9:40 AM EMATICAL TECHNICIAN Anesthesia Preprocedure Evaluation - Kostas Arreaga MD - 07/21/2018 6:18 AM CST PAC NOTE: ANESTHESIA PRE EVALUATION: Anesthesia Evaluation . Pt has had prior anesthetic. Type: General No history of anesthetic complications ROS/MED HX ENT/Pulmonary: (+)tobacco use, Current use 1 packs/day , . . Neurologic: (+)other neuro tremor of uncertain etiology Cardiovascular: Comment: afib was successfully treated with endocardial ablation (+) hypertension----. : . . . :. dysrhythmias a-fib, . METS/Exercise Tolerance: Hematologic: - neg hematologic ROS Musculoskeletal: (+) arthritis, , , - GI/Hepatic: (+) GERD Asymptomatic on medication, hepatitis type A, liver disease, Renal/Genitourinary: - ROS Renal section negative Endo: - neg endo ROS Psychiatric: (+) psychiatric history depression Infectious Disease: - neg infectious disease ROS Malignancy: - no malignancy Other: - neg other ROS Physical Exam Normal systems: cardiovascular, pulmonary and dental Airway Mallampati: II TM distance: >3 FB Neck ROM: full Dental Cardiovascular Rhythm and rate: regular and normal Pulmonary breath sounds clear to auscultation Other findings: Lab Test 07/17/18 07/07/18 01/09/18 0919 1155 0824 WBC 12.4* 6.4 9.0 HGB 15.6 15.8 14.8 MCV 93 93 91 PLT 227 203 210 Lab Test 07/17/18 07/07/18 01/09/18 0919 1155 0824 NA 142 140 142 POTASSIUM 4.1 4.3 4.2 CHLORIDE 108 106 108 CO2 27 28 25 BUN 6* 11 9 CR 1.04 1.06 0.87 ANIONGAP 7 6 9 CEFERINO 9.2 8.6 9.2 GLC 81 82 100* ECG EKG: Normal Sinus Rhythm Anesthesia Plan History & Physical Review History and physical reviewed and following examination; no interval change. ASA Status: 2 . NPO Status: > 8 hours Plan for General and LMA with Intravenous and Propofol induction. Maintenance will be Balanced (propofol background). PONV prophylaxis: Ondansetron (or other 5HT-3) and Dexamethasone or Solumedrol Postoperative Care Postoperative pain management: IV analgesics, Oral pain medications and Multi- modal analgesia. Consents Anesthetic plan, risks, benefits and alternatives discussed with: Patient. Use of blood products discussed: No . . . EMATICAL TECHNICIAN documented in this encounter Miscellaneous Notes Anesthesia Care Transfer Note - Alisha Rowe APRN CRNA - 07/21/2018 8:48 AM CST Patient: Feng Perez Procedure(s): open left inguinal hernia repair with mesh Diagnosis: left inguinal hernia Diagnosis Additional Information: No value filed. Anesthesia Type: General, LMA Note: Airway :Face Mask Patient transferred to:PACU Handoff Report: Identifed the Patient, Identified the Reponsible Provider, Reviewed the pertinent medical history, Discussed the surgical course, Reviewed Intra-OP anesthesia mangement and issues during anesthesia, Set expectations for post-procedure period and Allowed opportunity for questions and acknowledgement of understanding Vitals: (Last set prior to Anesthesia Care Transfer) CATHERINE VITALS 07/21/2018 0803 - 07/21/2018 0848 07/21/2018 Pulse: 83 SpO2: 99 % Resp Rate (observed): 16 Electronically Signed By: Alisha Rowe APRN CRNA July 21, 2018 8:48 AM EMATICAL TECHNICIAN documented in this encounter Plan of Treatment Not on filedocumented as of this encounter Visit Diagnoses Not on filedocumented in this encounter Administered Medications Inactive Administered Medications - up to 3 most recent administrations Medication Order MAR Action Action Date Dose Rate Site ceFAZolin (ANCEF) intermittent Given 07/21/2018 7:24 AM MATHEMATICAL TECHNICIAN 2 g infusion 2 g in 100 mL dextrose PRE-MIX Routine, 2 g, Intravenous, PRE-OP/PRE-PROCEDURE, Starting on Tue07/21/18 at 0608, For 1 dose, Give first dose within 1 hour PRIOR to incision. If patient weight is greater than or equal to 120 kg increase dose to 3 g., Indications: Perioperative Pharmacoprophylaxis, Pre-procedure dexamethasone (DECADRON) injection Given 07/21/2018 7:29 AM MATHEMATICAL TECHNICIAN 8 mg Intravenous, PRN, Administer over 1 Minutes, Starting on Tue07/21/18 at 0729, Anesthesia Intra-op fentaNYL (PF) (SUBLIMAZE) injection Given 07/21/2018 7:29 AM MATHEMATICAL TECHNICIAN 100 mcg PRN, moderate to severe pain, Administer over 3-5 Minutes, Starting on Tue07/21/18 at 0729, Anesthesia Intra-op glycopyrrolate (ROBINUL) injection Given 07/21/2018 7:29 AM MATHEMATICAL TECHNICIAN 0.2 mg PRN, Administer over 1-2 Minutes, Starting on Tue07/21/18 at 0729, Anesthesia Intra-op HYDROmorphone (DILAUDID) injection Given 07/21/2018 7:29 AM MATHEMATICAL TECHNICIAN 1 mg Intravenous, PRN, moderate to severe pain, Starting on Tue07/21/18 at 0729, Anesthesia Intra-op ketorolac (TORADOL) injection Given 07/21/2018 7:29 AM MATHEMATICAL TECHNICIAN 30 mg Intravenous, PRN, moderate pain, Administer over 2 Minutes, Starting on Tue07/21/18 at 0729, Anesthesia Intra-op lactated ringers infusion New Bag 07/21/2018 8:17 AM MATHEMATICAL TECHNICIAN at 25 mL/hr, Intravenous, CONTINUOUS, IF patient NOT on dialysis., Pre-procedure, Starting on Tue07/21/18 at 0615, Until Tue07/21/18 at 0834 New Bag 07/21/2018 7:24 AM MATHEMATICAL TECHNICIAN lidocaine 1 % 1 mL Given 07/21/2018 7:29 AM MATHEMATICAL TECHNICIAN 30 mg 1 mL, Other, EVERY 1 HOUR PRN, mild pain with VAD insertion or accessing implanted port, Starting on Tue07/21/18 at 0611, Do NOT give if patient has a history of allergy to any local anesthetic or any wyatt product. MAX dose 1 mL subcutaneous OR intradermal in divided doses., Pre-procedure midazolam (VERSED) injection Given 07/21/2018 8:10 AM MATHEMATICAL TECHNICIAN 2 mg Administer over 2 Minutes, PRN, anxiety, Starting on Tue07/21/18 at 0724, Anesthesia Intra-op Given 07/21/2018 7:24 AM MATHEMATICAL TECHNICIAN 2 mg ondansetron (ZOFRAN) injection Given 07/21/2018 7:29 AM MATHEMATICAL TECHNICIAN 4 mg PRN, nausea, vomiting, Administer over 2-5 Minutes, Starting on Tue07/21/18 at 0729, Anesthesia Intra-op phenylephrine (LA-SYNEPHRINE) injection Given 07/21/2018 8:19 AM MATHEMATICAL TECHNICIAN 100 mcg PRN, Starting on Tue07/21/18 at 0804, Anesthesia Intra-op Given 07/21/2018 8:09 AM MATHEMATICAL TECHNICIAN 100 mcg Given 07/21/2018 8:04 AM MATHEMATICAL TECHNICIAN 100 mcg propofol (DIPRIVAN) infusion New Bag 07/21/2018 7:29 AM 50 mcg/kg/min 28.3 mL/hr Intravenous, CONTINUOUS PRN, MATHEMATICAL TECHNICIAN Starting on Tue07/21/18 at 0729, Anesthesia Intra-op propofol (DIPRIVAN) injection 10 mg/mL v ial Given 07/21/2018 7:29 AM MATHEMATICAL TECHNICIAN 200 mg PRN, Starting on Tue07/21/18 at 0729, Anesthesia Intra-op rocuronium (ZEMURON) injection Given 07/21/2018 7:29 AM MATHEMATICAL TECHNICIAN 20 mg Intravenous, PRN, Starting on Tue07/21/18 at 0729, Anesthesia Intra-op documented in this encounter Additional Health Concerns Assessment Noted Time PHQ-9 Depression Total Score: 0 06/10/2018 7:05 AM CDT documented as of this encounter Care Teams Survey Research Manager Relationship Specialty Start Date End Date Leticia Armendariz MD PCP - General Internal Medicine 03/17/15 Leticia Armendariz MD PCP - Assigned PCP 06/30/14 11/07/18 [facility] [address] [place] [id number] Nahum Lemus MD 09/16/16 [place] [facility] [address] [facility] [place] [phone] Karuna Ramirez MD MD Cardiology 09/16/16 Karime Castro DO Referring Physician Orthopedics 05/13/17 [facility] [address] [facility] [address] [place] [address] Tito Almonte MD MD Orthopedics 05/13/17 [address] [facility] [address] [place], [place] [phone] Leticia Armendariz MD Assigned PCP 06/30/14 01/06/[address] [address] documented as of this encounter
--- OUTSIDE RECORDS SUMMARY | 2022-06-25 13:50 | XMS_ITS | Encounter Summary ---
:1965 Author Organization [facility] Address [address] [place] [address] Care Team Providers Name Role Phone Leticia Armendariz MD Primary Care Provider Nahum Lemus MD Unavailable Karuna Ramirez MD Unavailable [phone] Karime Castro DO Unavailable Tito Almonte MD Unavailable Leticia Armendariz MD Unavailable Reason for Visit Reason Comments Medication Refill losartan (COZAAR) 50 MG tabl et Encounter Details Date Type Department Care Team Description 12/21/2018 Refill [facility] Leticia Armendariz Medication Refill Deamrco Bender MD (losartan (COZAAR) 50 MG [address] [place] Heidi Hobbs He alth tablet) [address] [id number] [phone] Social History Tobacco Use Types Packs/Day Years Used Date Smoking Tobacco: Every Day Cigarettes Smokeless Tobacco: Never Comments: 1 pack daily Alcohol Use Standard Drinks/Week Comments No 0 (1 standard drink = 0.6 oz pure alcoho l) 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 Date Recorded 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 Telephone Encounter - Shyann Wooten - 12/21/2018 9:22 AM CDT Requested Prescriptions Pending Prescriptions Disp Refills ??? losartan (COZAAR) 50 MG tablet [Pharmacy Med Name: LOSARTAN POTASSIUM 50 MG TAB] 90 tablet 1 Sig: TAKE 1 TABLET BY MOUTH EVERY DAY Last Written Prescription Date: 06/28/2018 Last Fill Quantity: 90, # refills: 1 Last office visit: 07/17/2018 with prescribing provider: Future Office Visit: Angiotensin-II Receptors Passed - 12/21/2018 2:02 AM Passed - Blood pressure under 140/90 [...] months Recent Labs Lab Test 07/17/18 0919 POTASSIUM 4.1 documented in this encounter Plan of Treatment Not on filedocumented as of this encounter Visit Diagnoses Diagnosis Atrial fibrillation status post cardiove rsion documented in this encounter Additional Health Concerns Assessment Noted Time PHQ-9 Depression Total Score: 0 06/10/2018 7:05 AM CDT documented as of this encounter Care Teams Dip Stand Loader Relationship Specialty Start Date End Date Leticia Armendariz MD PCP - General Internal Medicine 03/17/15 Nahum Lemus MD 09/16/16 [place] [facility] [address] [facility] [address] [place] [id number] Karuna Ramirez MD MD Cardiology 09/16/16 Karime Castro DO Referring Physician Orthopedics 05/13/17 [facility] [address] [facility] [address] [place] [address] Tito Almonte MD MD Orthopedics 05/13/17 [facility] [address] [place], [place] [phone] Leticia Armendariz MD Assigned PCP 06/30/14 01/06/19 [facility] [address] [place] [phone] documented as of this encounter
--- OUTSIDE RECORDS SUMMARY | 2022-06-25 13:50 | XMS_ITS | Encounter Summary ---
:1965 Author Organization [facility] Address [address] [place] [address] Care Team Providers Name Role Phone Leticia Armendariz MD Primary Care Provider Nahum Lemus MD Unavailable Karuna Ramirez MD Unavailable [phone] Karime Castro DO Unavailable Tito Almonte MD Unavailable Leticia Armendariz MD Unavailable Leticia Armendariz MD Unavailable Reason for Visit Auth/Cert Specialty Diagnoses / Procedures Referred By Contact Refer red To Contact Surgery Diagnoses left inguinal hernia Rh Periop Services Procedures HERNIORRHAPHY INGUINAL [address] [place], [place] [address] Phone: Fax: Referral ID Status Reason Start Date Expiration Date Visits Requ ested Visits Authorized [id number] 1 1 Encounter Details Date Type Department Care Team Description 07/21/2018 Hospital Encounter [facility] Jono Delarosa, Left inguinal hernia [place] PreOP/PostOP (Primary Dx) [address] [facility] [address] [address] [place], [place] [phone] Social History Tobacco Use Types Packs/Day Years Used Date Smoking Tobacco: Every Day Cigarettes Smokeless Tobacco: Never Comments: 1 pack daily Alcohol Use Standard Drinks/Week Comments No 0 (1 standard drink = 0.6 oz pure alcoho l) 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 Date Recorded Male 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 documented as of this encounter Last Filed Vital Signs Vital Sign Reading Time Taken Comments Blood Pressure 129/83 07/21/2018 11:00 AM FUR BUYER Pulse 74 07/21/2018 6:14 AM FUR BUYER Temperature 36.8 ??C (98.3 ??F) 07/21/2018 11:00 AM FUR BUYER Respiratory Rate 16 07/21/2018 11:00 AM FUR BUYER Oxygen Saturation 100% 07/21/2018 11:00 AM FUR BUYER Inhaled Oxygen Concentration - - Weight 94.3 kg (208 lb) 07/21/2018 6:10 AM FUR BUYER Height 177.8 cm (5' 10) 07/21/2018 6:14 AM FUR BUYER per pt Body Mass Index 29.84 07/21/2018 6:10 AM FUR BUYER documented in this encounter Discharge Instructions Discharge Cecelia Mcginnis RN - 07/21/2018 9:00 AM CST HOME CARE FOLLOWING INGUINAL/FEMORAL HERNIA REPAIR Stefany Kimbrough, Romel Allison, R. O???Denisse Kinney DIET: No restrictions. Increased [...] 1-3 weeks after surgery. Expect gradual improvement. Fumr-eij-xdmsqfk anti-inflammatory medications (i.e. Ibuprofen/Advil/Motrin or Naprosyn/Aleve) may [...] Walk around frequently. You may consider an gihb-qrm-lvzxexv stool-softener. Your Pharmacist can assist you with [...] discuss with the nurse or physician assistant manager/embalmer. # There is a surgeon FINANCIAL SERVICES DIRECTOR on weekday evenings and over the weekend [...] not take any ibuprofen products until 1:30pm. BUYER documented in this encounter Medications at Time [...] days available in the hospital surgical encounter. BUYER Source Note - Ro Reyna NP - 07/17/2018 8:37 AM FUR BUYER [address] [address] Dept: [phone] PRE-OP EVALUATION: Today's date: 07/17/2018 Feng Perez [...] Questions 07/15/2018 Who is doing your surgery? [facility] websphere commerce consultant What are you having done? Hernia repair. Left inguinal Date of Surgery/Procedure: 07-21-18 Facility or Hospital where procedure/surgery will be performed: [facility] 1. Do you have a history of [...] ONE LEVEL; Surgeon: Umang Sandoval MD; Location: [facility] ??? GENITOURINARY SURGERY vasectomy ??? TESTICLE SURGERY [...] cardiovascular risks for perioperative complications such as ([place], PE, VFib and 3?? AV Block): No [...] Olivia Preop Guidelines Revised Cardiac Risk Index BUYER documented in this encounter Miscellaneous Notes Op Note - Jono Delarosa MD - 07/21/2018 8:23 AM CST General Surgery Operative Note Pre-operative diagnosis: Left inguinal hernia Post-operative diagnosis: Left inguinal hernia, indirect Procedure: Indirect left inguinal hernia repair with Ultrapro hernia system (large size) Surgeon: Jono Delarosa MD Retirement Officer(s): SANDEE Martinez PA was medically necessary for [...] verified after the procedure. Jono Delarosa MD BUYER Provider Notification - Reba Rojas, RN - 07/18/2018 1:43 PM CST [facility] [place] 2] contacted today and spoke to Nurse regarding pt. Lab results - WBC 12.4. Nurse to consult with And call us back. BUYER documented in this encounter Plan of Treatment Not on filedocumented as of this encounter Procedures Procedure Name Priority Date/Time Associated Diagnosis Comme nts HERNIORRHAPHY, 07/21/2018 7:26 AM FUR BUYER left inguinal h ernia INGUINAL, OPEN Special Needs [id number], 212 lb H&P documented in this encounter Visit Diagnoses Diagnosis Left inguinal hernia - Primary Inguinal hernia without mention of obstr uction or gangrene, unilateral or unspecified, (not specified as recurrent ) documented in this encounter Administered Medications Inactive Administered Medications - up to 3 most recent administrations Medication Order MAR Action Action Date Dose Rate Site naloxone (NARCAN) injection 0.1-0.4 mg 0.1-0.4 mg, [...] Recently Administered Medications Times are shown in FUR BUYER. Scheduled Medication Order 07/19/2018 07/20/2018 07/21/2018 ceFAZolin [...] (New Bag - Provider: Alisha Rowe APRN SOLDERER)0817 (New Bag - Provider: Alisha Rowe APRN [...] in water for irrigation (IRRESEPT) (CANCELED ) 0806 (Given - Provider: Jono Delarosa MD - Comment: mesh soaked in irrisept prior to implantation) PRN, Starting Tue07/21/18 at 0806, Intra-procedure lidocaine 1 % 1 mL (CANCELED) 07 29 (Given - Provider: Kostas Arreaga MD) 1 [...] documented as of this encounter Care Teams Planning Specialist Relationship Specialty Start Date End Date Leticia Armendariz MD PCP - General Internal Medicine 03/17/15 Leticia Armendariz MD PCP - Assigned PCP 06/30/14 11/07/[address] [address] Nahum Lemus MD 09/16/16 [place] [facility] [address] [facility] [place] [address] Karuna Ramirez MD MD Cardiology 09/16/16 Karime Castro DO Referring Physician Orthopedics 05/13/17 [facility] [address] [id number] Tito Almonte MD MD Orthopedics 05/13/[address] [place], [place] [address] Leticia Armendariz MD Assigned PCP 06/30/14 01/06/[address] [address] documented as of this encounter
--- OUTSIDE RECORDS SUMMARY | 2022-06-25 13:50 | XMS_ITS | Encounter Summary ---
:1965 Author Organization [facility] Address [address] [place] [address] Care Team Providers Name Role Phone Leticia Armendariz MD Primary Care Provider Nahum Lemus MD Unavailable Karuna Ramirez MD Unavailable [phone] Karime Castro DO Unavailable Tito Almonte MD Unavailable Ro Reyna NP Unavailable Reason for Visit Reason Onset Date Comments Refill Request 03/13/2019 Encounter Details Date Type Department Care Team Description 03/13/2019 Darius Yanes [facility] Leticia Armendariz, Refill Request Demarco BOURGEOIS [address] [place] [address] [place] [address] [place], [place] [address] (Wo rk) Social History Tobacco Use Types Packs/Day Years Used Date Smoking Tobacco: Every Day Cigarettes Smokeless Tobacco: Never Comments: 1 pack daily Alcohol Use Standard Drinks/Week Comments No 0 (1 standard drink = 0.6 oz pure alcoho l) 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 Date Recorded 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 Kerry Dumont MA Telephone Encounter - Akila Low RN - 03/14/2019 3:56 PM CDT Livia Last Written Prescription Date: 11/17/18 Last Fill Quantity: 30, # refills: 1 Last Office Visit: 07/17/18 Future Office visit: Routing refill request to provider for review/approval because: Drug not on the [facility], [facility] or Health refill protocol or controlled substance documented in this encounter Plan of Treatment Not on filedocumented as of this encounter Visit Diagnoses Diagnosis Primary insomnia Persistent disorder of initiating or adrianne ntaining sleep documented in this encounter Additional Health Concerns Assessment Noted Time PHQ-9 Depression Total Score: 0 06/10/2018 7:05 AM CDT documented as of this encounter Care Teams Patient Relations Coordinator Relationship Specialty Start Date End Date Leticia Armendariz MD PCP - General Internal Medicine 03/17/15 Nahum Lemus MD 09/16/16 [place] [facility] [address] [facility] [address] [place] [phone] Karuna Ramirez MD MD Cardiology 09/16/16 Karime Castro DO Referring Physician Orthopedics 05/13/17 [facility] [address] [facility] [address] [place] [address] Tito Almonte MD MD Orthopedics 05/13/17 [address] [facility] [address] [place], [place] [address] Ro Reyna NP Assigned PCP 01/07/19 08/25/19 [place] [address] documented as of this encounter
--- OUTSIDE RECORDS SUMMARY | 2022-06-25 13:50 | XMS_ITS | Encounter Summary ---
:1965 Author Organization [facility] Address [address] [place] [address] Care Team Providers Name Role Phone Leticia Armendariz MD Primary Care Provider Nahum Lemus MD Unavailable Karuna Ramirez MD Unavailable [phone] Karime Castro DO Unavailable Tito Almonte MD Unavailable Ro Reyna NP Unavailable Reason for Visit Reason Onset Date Comments Referral 02/15/2019 LUZ Encounter Details Date Type Department Care Team Description 02/15/2019 [facility] Jorge Young, Referral (LUZ) Orthopedic Clinic SANDEE Chelan [address] [facility] [id number] [place] [address] [address] [place] [address] [place] [address] [phone] Social History Tobacco Use Types Packs/Day Years Used Date Smoking Tobacco: Every Day Cigarettes Smokeless Tobacco: Never Comments: 1 pack daily Alcohol Use Standard Drinks/Week Comments No 0 (1 standard drink = 0.6 oz pure alcoho l) 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 Date Recorded 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 He was told he would be called to set up an injection for his back and has not received a call. He asks if there is a number he can call, or should he continue to wait. Phone call to patient and provided [facility]'s phone number to schedule. Patient instructedto call in 2 weeks if not improving an we would refer to a surgeon. If improving, he is to follow upwith Wayne Young PA-C in 4 weeks. Patient verbalized understanding. Chery Ren RN documented in this encounter Plan of Treatment Not on filedocumented as of this encounter Visit Diagnoses Not on filedocumented in this encounter Additional Health Concerns Assessment Noted Time PHQ-9 Depression Total Score: 0 06/10/2018 7:05 AM CDT documented as of this encounter Care Teams Kiln Packer Relationship Specialty Start Date End Date Leticia Armendariz MD PCP - General Internal Medicine 03/17/15 Nahum Lemus MD 09/16/16 [place] [facility] [address] [facility] [address] [place] [phone] Karuna Ramirez MD MD Cardiology 09/16/16 Karime Castro DO Referring Physician Orthopedics 05/13/17 [facility] [address] [facility] [address] [place] [address] Tito Almonte MD MD Orthopedics 05/13/[address] [place], [place] [address] Ro Reyna NP Assigned PCP 01/07/19 08/25/19 [place] [address] documented as of this encounter
--- OUTSIDE RECORDS SUMMARY | 2022-06-25 13:50 | XMS_ITS | Encounter Summary ---
:1965 Author Organization [facility] Address [address] [place] [address] Care Team Providers Name Role Phone Leticia Armendariz MD Primary Care Provider Nahum Lemus MD Unavailable Karuna Ramirez MD Unavailable [phone] Karime Castro DO Unavailable Tito Almonte MD Unavailable Leticia Armendariz MD Unavailable Leticia Armendariz MD Unavailable Reason for Visit Reason Comments Pre-Op Exam hernia repair Encounter Details Date Type Department Care Team Description 07/17/2018 Office Visit [facility] Maribell Ro Pre-op e xam (Primary [facility] [place] DICK Sarabia Dx) [address] [phone] Social History Tobacco Use Types Packs/Day Years Used Date Smoking Tobacco: Every Day Cigarettes Smokeless Tobacco: Never Comments: 1 pack daily Alcohol Use Standard Drinks/Week Comments No 0 (1 standard drink = 0.6 oz pure alcoho l) 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 Date Recorded 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 encounter Last Filed Vital Signs Vital Sign Reading Time Taken Comments Blood Pressure 138/89 07/17/2018 8:33 AM KNIFE BLADE POLISHER Pulse 97 07/17/2018 8:33 AM KNIFE BLADE POLISHER Temperature 36.7 ??C (98.1 ??F) 07/17/2018 8:33 AM KNIFE BLADE POLISHER Respiratory Rate 16 07/17/2018 8:33 AM KNIFE BLADE POLISHER Oxygen Saturation 97% 07/17/2018 8:33 AM KNIFE BLADE POLISHER Inhaled Oxygen Concentration - - Weight 96.2 kg (212 lb 1.6 oz) 07/17/2018 8:33 AM KNIFE BLADE POLISHER Height 177.8 cm (5' 10) 07/17/2018 8:33 AM KNIFE BLADE POLISHER Body Mass Index 30.43 07/17/2018 8:33 AM KNIFE BLADE POLISHER documented in this encounter Patient Instructions Patient InstructionsLubna Schmid - 07/17/2018 8:37 AM CST Before Your Surgery ??? Call your surgeon [...] and have clean sheets on your bed. E BLADE POLISHER documented in this encounter Progress Notes Ro Reyna NP - 07/17/2018 8:37 AM CST [address] [address] Dept: [phone] PRE-OP EVALUATION: Today's date: 07/17/2018 Feng Perez [...] Questions 07/15/2018 Who is doing your surgery? [facility] tax consultant What are you having done? Hernia repair. Left inguinal Date of Surgery/Procedure: 07-21-18 Facility or Hospital where procedure/surgery will be performed: [facility] 1. Do you have a history of [...] Location: [facility] ??? GENITOURINARY SURGERY vasectomy ??? TESTICLE SURGERY [...] Olivia Preop Guidelines Revised Cardiac Risk Index E BLADE POLISHER documented in this encounter Nursing Notes Lubna Schmid - 07/17/2018 8:20 AM CST Patient here for hernia repair preop E BLADE POLISHER documented in this encounter Plan of Treatment Not on filedocumented as of this encounter Procedures Procedure Name Priority Date/Time Associated Diagnosis Comme nts BASIC METABOLIC Routine 07/17/2018 9:19 AM Pre-op exam Result s for this PANEL KNIFE BLADE POLISHER procedure are i n the results section. CBC WITH PLATELETS Routine 07/17/2018 9:19 AM Pre-op exam Res ults for this KNIFE BLADE POLISHER procedure are i n the results section. EKG 12-LEAD Routine 07/17/2018 8:22 AM Pre-op exam Results f or this COMPLETE W/READ - KNIFE BLADE POLISHER procedure are in CLINICS the results section. documented in this encounter Results (ABNORMAL) Basic metabolic panel (07/17/2018 9:19 AM KNIFE BLADE POLISHER) P athologist Signature Sodium 142 133 - 144 07/18/2018 [facility] mmol/L 7:53 AM KNIFE BLADE POLISHER [facility] [place] Potassium 4.1 3.4 - 5.3 07/18/2018 [facility] mmol/L 7:53 AM KNIFE BLADE POLISHER [facility] [place] Chloride 108 94 - 109 07/18/2018 [facility] mmol/L 7:53 AM [facility]IFE BLADE POLISHER [facility] Carbon Dioxide 27 20 - 32 07/18/2018 [facility] mmol/L 7:53 AM [facility] Anion Gap 7 3 - 14 07/18/2018 [facility] mmol/L 7:53 AM [facility] Glucose 81 70 - 99 07/18/2018 [facility] mg/dL 7:53 AM [facility] Comment: Non Fasting Urea Nitrogen 6 (L) 7 - 30 mg/dL 07/18/2018 7:53 AM [facility] Creatinine 1.04 0.66 - 1.25 mg/dL 07/18/2018 7:[address] [facility] GFR Estimate 75 >60 mL/min/1.7m2 07/18/2018 7:[address] [facility] Comment: Non GFR Calc GFR Estimate If >90 >60 mL/min/1.7m2 07/18/2018 7:53 A M [facility] Black [facility] Comment: GFR Calc Calcium 9.2 8.5 - 10.1 mg/dL 07/18/2018 7:53 AM [facility] Specimen Anatomical Collection Method Collection Time Receive d Time (Source) Location / / Volume Laterality Blood specimen 07/17/2018 9:19 AM 018 9:20 (specimen) KNIFE BLADE POLISHER AM KNIFE BLADE POLISHER Ro Reyna NP LAB - BLOOD ORDERABLES Performing Organization Address City/State/ZIP Code Phon e Number [facility] [address] [place] [address] (ABNORMAL) CBC with platelets (07/17/2018 9:19 AM KNIFE BLADE POLISHER) [facility] gist Method Time Signature WBC 12.4 (H) 4.0 - 11.0 07/17/2018 [facility] 10e9/L 10:47 AM [facility] RBC Count 5.02 4.4 - 5.9 07/17/2018 [facility] 10e12/L 10:47 AM [facility] Hemoglobin 15.6 13.3 - 07/17/2018 [facility] 17.7 g/dL 10:47 AM [facility] Hematocrit 46.6 40.0 - 07/17/2018 [facility] 53.0 % 10:47 AM [facility] MCV 93 78 - 100 07/17/2018 [facility] fl 10:47 AM [facility] MCH 31.1 26.5 - 07/17/2018 [facility] 33.0 pg 10:47 AM [facility] MCHC 33.5 31.5 - 07/17/2018 [facility] 36.5 g/dL 10:47 AM [facility] RDW 12.7 10.0 - 07/17/2018 [facility] 15.0 % 10:47 AM [facility] Platelet Count 227 150 - 450 07/17/2018 [facility] 10e9/L 10:47 AM [facility] Specimen Anatomical Collection Method Collection Time Receive d Time (Source) Location / / Volume Laterality Blood specimen 07/17/2018 9:19 AM 018 9:20 (specimen) KNIFE BLADE POLISHER AM KNIFE BLADE POLISHER Ro Reyna NP LAB - BLOOD ORDERABLES Performing Organization Address City/State/ZIP Code Phon e Number [facility] [address] [place], [place] [address] [address] EKG 12-lead complete w/read - Clinics (07/17/2018 8:22 AM KNIFE BLADE POLISHER) Narrative This result has an attachment that is no t available. Ro Reyna NP ECG ORDERABLES documented in this encounter Visit Diagnoses Diagnosis Pre-op exam - Primary Preoperative examination, unspecified documented in this encounter Additional Health Concerns Assessment Noted Time PHQ-9 Depression Total Score: 0 06/10/2018 7:05 AM CDT documented as of this encounter Care Teams Fire Coordinator Relationship Specialty Start Date End Date Leticia Armendariz MD PCP - General Internal Medicine 03/17/15 Leticia Armendariz MD PCP - Assigned PCP 06/30/14 11/07/18 [facility] [address] [place] [address] Nahum Lemus MD 09/16/16 [place] [facility] [address] [facility] [place] [address] Karuna Ramirez MD MD Cardiology 09/16/16 Karime Castro DO Referring Physician Orthopedics 05/13/17 [facility] [address] [facility] [address] [place] [address] Tito Almonte MD MD Orthopedics 05/13/17 [address] [facility] [address] [place] [address] Leticia Armendariz MD Assigned PCP 06/30/14 01/06/19 [facility] [address] [place] [address] documented as of this encounter
--- OUTSIDE RECORDS SUMMARY | 2022-06-25 13:50 | XMS_ITS | Encounter Summary ---
:1965 Author Organization [facility] Address [address] [place] [address] Care Team Providers Name Role Phone Leticia Armendariz MD Primary Care Provider Nahum Lemus MD Unavailable Karuna Ramirez MD Unavailable [phone] Karime Castro DO Unavailable Tito Almonte MD Unavailable Ro Reyna NP Unavailable Encounter Details Date Type Department Care Team Description 02/13/2019 Travel Social History Tobacco Use Types Packs/Day Years Used Date Smoking Tobacco: Every Day Cigarettes Smokeless Tobacco: Never Comments: 1 pack daily Alcohol Use Standard Drinks/Week Comments No 0 (1 standard drink = 0.6 oz pure alcoho l) 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 Date Recorded 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 documented as of this encounter Plan of Treatment Not on filedocumented as of this encounter Visit Diagnoses Not on filedocumented in this encounter Additional Health Concerns Assessment Noted Time PHQ-9 Depression Total Score: 0 06/10/2018 7:05 AM CDT documented as of this encounter Care Teams Engraver Flatware Relationship Specialty Start Date End Date Leticia Armendariz MD PCP - General Internal Medicine 03/17/15 Nah[facility] Lemus MD 09/16/16 [place] [facility] [address] [facility] [place] [phone] Karuna Ramirez MD MD Cardiology 09/16/16 Karime Castro DO Referring Physician Orthopedics 05/13/17 [facility] [address] [facility] [address] [place] [address] Tito Almonte MD MD Orthopedics 05/13/17 [address] [facility] [address] [place] [address] Ro Reyna NP Assigned PCP 01/07/19 08/25/19 [address] [place], [place] [id number] documented as of this encounter
--- OUTSIDE RECORDS SUMMARY | 2022-06-25 13:50 | XMS_ITS | Encounter Summary ---
:1965 Author Organization [place] Address [address] [place] [address] Care Team Providers Name Role Phone Leticia Armendariz MD Primary Care Provider Nahum Lemus MD Unavailable Karuna Ramirez MD Unavailable [phone] Karime Castro DO Unavailable Tito Almonte MD Unavailable Leticia Armendariz MD Unavailable Leticia Armendariz MD Unavailable Reason for Visit Reason Comments Medication Refill losartan (COZAAR) 50 MG tabl et Encounter Details Date Type Department Care Team Description 06/28/2018 Refill [facility] Leticia Armendariz Medication Refill Demarco Bender MD (losartan (COZAAR) 50 MG [address] Faby bianchi tablet ) [address] [address] [phone] Social History Tobacco Use Types Packs/Day Years Used Date Smoking Tobacco: Every Day Cigarettes Smokeless Tobacco: Never Comments: 1 pack daily Alcohol Use Standard Drinks/Week Comments Yes 0 (1 standard drink = 0.6 oz pure alcoho l) 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 Date Recorded 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 [Pharmacy Med Name: LOSARTAN POTASSIUM 50 MG TAB] Last Written Prescription Date: 10/06/2017 Last Fill Quantity: 90, # refills: 2 Last office visit: 01/03/2018 with prescribing provider: Future Office Visit: 90 tablet 2 Sig: TAKE 1 TABLET (50 MG) BY MOUTH DAILY Angiotensin-II Receptors Passed 06/28/2018 2:18 AM Passed - Blood pressure under 140/90 in past 12 months BP Readings from Last 3 Encounters: 01/03/18 120/72 11/09/17 119/71 07/13/17 159/87 Passed - Recent (12 mo) or future (30 days) visit within the authorizing provider's specialty Patient had office visit in the last 12 months or has a visit in the next 30 days with authorizing provider or within the authorizing provider's specialty. See Patient Info tab in inbasket, or Choose Columns in Meds & Orders section of the refill encounter. Passed - Patient is age 18 or older Passed - Normal serum creatinine on file in past 12 months Recent Labs Lab Test 01/09/18 0824 10/26/15 1355 CR 0.87 < > -- CREAT -- -- 1.2 < > = values in this interval not displayed. Passed - Normal serum potassium on file in past 12 months Recent Labs Lab Test 01/09/18 0824 POTASSIUM 4.2 documented in this encounter Plan of Treatment Not on filedocumented as of this encounter Visit Diagnoses Diagnosis Atrial fibrillation status post cardiove rsion documented in this encounter Additional Health Concerns Assessment Noted Time PHQ-9 Depression Total Score: 0 06/10/2018 7:05 AM CDT documented as of this encounter Care Teams Rubber Roller Grinder Operator Relationship Specialty Start Date End Date Leticia Armendariz MD PCP - General Internal Medicine 03/17/15 Leticia Armendariz MD PCP - Assigned PCP 06/30/14 11/07/18 [facility] [address] [place] [address] Nahum Lemus MD 09/16/16 [facility] [address] [facility] [place] [address] Karuna Ramirez MD MD Cardiology 09/16/16 Karime Castro DO Referring Physician Orthopedics 05/13/17 [facility] [address] [facility] [address] [place], [place] [address] Tito Almonte MD MD Orthopedics 05/13/17 [address] [facility] [address] [place], [place] [address] Leticia Armendariz MD Assigned PCP 06/30/14 01/06/19 [employer] [facility] [facility] [employer] [address] [place] [address] documented as of this encounter
--- OUTSIDE RECORDS SUMMARY | 2022-06-25 13:50 | XMS_ITS | Encounter Summary ---
:1965 Author Organization [facility] Address [address] [place] [address] Care Team Providers Name Role Phone Leticia Armendariz MD Primary Care Provider Nahum Lemus MD Unavailable Karuna Ramirez MD Unavailable [phone] Karime Castro DO Unavailable Tito Almonte MD Unavailable Ro Reyna NP Unavailable Reason for Visit Reason Onset Date Comments Back Pain 02/26/2019 Encounter Details Date Type Department Care Team Description 02/26/2019 [facility] Jorge Young, [facility] [place] [address] [facility] [address] [address] [address] [place] [address] [place] [address] [phone] Social History Tobacco Use Types Packs/Day Years Used Date Smoking Tobacco: Every Day Cigarettes Smokeless Tobacco: Never Comments: 1 pack daily Alcohol Use Standard Drinks/Week Comments No 0 (1 standard drink = 0.6 oz pure alcoho l) 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 Date Recorded 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 Huddled with Wayne and he said it was fine that he doesn't come back and see him and a referral be placed. He would recommend Dr. Anderson otherwise his other option would be [facility]. He recommended waiting another week to truly see if he gets any relief from the injection and stated most surgeons would say the same before seeing him. Ruchi Jay ATC Telephone Encounter - Toya Ren RN - 02/26/2019 2:57 PM CDT Feng Perez is a 53 year old male who calls stating he had LUZ's done x 3 on 02/21/19 ordered byWayne Young PA-C. For The first day and a half, his pain level decreased from a +5/10 to a +3-4/10.It has now returned to the +5/10. Foot numbness has been unchanged since January 14. He states the radiologist wasn't confident the LUZ's would help the pain. He states he has not had a lot of relief from cortisone injections given to other areas of his body in the past. Informed he needs to wait at least the 2 week time frame before we know the cortisone has not been effective. He asks if he needs to see Wayne Young PA-C after the 2 weeks or if he would be referred to a surgeon. Informed Wayne will be gone the first week of March, so he will need to follow up with us the weekof March 11. Appointment scheduled for March 13. Patient will cancel if not needed. He verbalized understanding. Chery Ren RN documented in this encounter Plan of Treatment Not on filedocumented as of this encounter Visit Diagnoses Not on filedocumented in this encounter Additional Health Concerns Assessment Noted Time PHQ-9 Depression Total Score: 0 06/10/2018 7:05 AM CDT documented as of this encounter Care Teams Bender Machine Operator Relationship Specialty Start Date End Date Leticia Armendariz MD PCP - General Internal Medicine 03/17/15 Nahum Lemus MD 09/16/16 [facility] [address] [facility] [place] [id number] Karuna Ramirez MD MD Cardiology 09/16/16 Karime Castro DO Referring Physician Orthopedics 05/13/17 [facility] [address] [phone] Tito Almonte MD MD Orthopedics 05/13/17 [address] [facility] [address] [place], [place] [address] Ro Reyna NP Assigned PCP 01/07/19 08/25/19 Renny MURRIETA [place], [place] [phone] documented as of this encounter
--- OUTSIDE RECORDS SUMMARY | 2022-06-25 13:50 | XMS_ITS | Encounter Summary ---
:1965 Author Organization [place] Address [address] [place] [address] Care Team Providers Name Role Phone Leticia Armendariz MD Primary Care Provider Nahum Lemus MD Unavailable Karuna Ramirez MD Unavailable [phone] Karime Castro DO Unavailable Tito lAmonte MD Unavailable Leticia Armendariz MD Unavailable Leticia Armendariz MD Unavailable Reason for Visit Reason Comments Consult IH Encounter Details Date Type Department Care Team Description 07/10/2018 Office Visit [facility] Jono Delarosa MD Left inguinal hernia Surgery Clinic [address] [facility] (Prima [facility] Dx) [place] [address] [facility] [address] [address] [place], [place] [phone] (Wo rk) [address] [phone] Social History Tobacco Use Types Packs/Day Years Used Date Smoking Tobacco: Every Day Cigarettes Smokeless Tobacco: Never Tobacco Cessation: Counseling Given: Yes Comments: 1 pack daily Alcohol Use Standard Drinks/Week Comments No 0 (1 standard drink = 0.6 oz pure alcoho l) 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 Date Recorded Male 08/13/2020 9:06 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 documented as of this encounter Last Filed Vital Signs Vital Sign Reading Time Taken Comments Blood Pressure 118/72 07/10/2018 12:47 PM PERSONAL LINES AGENT Pulse - - Temperature - - Respiratory Rate 16 07/10/2018 12:47 PM PERSONAL LINES AGENT Oxygen Saturation - - Inhaled Oxygen Concentration - - Weight 94.8 kg (209 lb) 07/10/2018 12:47 PM PERSONAL LINES AGENT Height 177.8 cm (5' 10) 07/10/2018 12:47 PM PERSONAL LINES AGENT Body Mass Index 29.99 07/10/2018 12:47 PM PERSONAL LINES AGENT documented in this encounter Progress Notes Jono eDlarosa MD - 07/10/2018 1:00 PM CST HPI: Feng is a 53 year old male who presents for evaluation of left groin bulge. Symptoms began 1 weekago. This is described as aching and pressure. The pain occurs with walking and prolonged standing. Associated symptoms include none. The patient has noticed a bulge. The patient has not had a previousherniorrhaphy in this location. Employment does occasional require heavy lifting. Constipation: No Colonoscopy: Yes, 2014, diverticulosis Dysuria: No Cough: No Diabetes: No Past Medical History: has a past medical history of A-fib (H); Arrhythmia; Atrial fibrillation (H); Complication of anesthesia; Hepatitis; Hypertension; and Palpitations. Past Surgical History: Past Surgical History: Procedure Laterality Date ??? COLONOSCOPY N/A 06/25/2015 Procedure: COLONOSCOPY; Surgeon: Haven Sosa MD; Location: [facility] ??? FUSION CERVICAL ANTERIOR ONE LEVEL 04/15/2014 Procedure: FUSION CERVICAL ANTERIOR ONE LEVEL; Surgeon: Umang Sandoval MD; Location: [facility] ??? GENITOURINARY SURGERY vasectomy ??? TESTICLE SURGERY ??? VASECTOMY ??? VASOVASOSTOMY Additional abdominal operations: none Social History: Social History Social History ??? Marital status: Spouse name: N/A ??? Number of children: 2 ??? Years of education: N/A Occupational History ??? [employer] Social History Main Topics ??? Smoking status: Current Every Day Smoker Types: Cigarettes ??? Smokeless tobacco: Never Used Comment: 1 pack daily ??? Alcohol use 0.0 oz/week 0 Standard drinks or equivalent per week ??? 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 Sexual activity: Yes Partners: Female Comment: spouse Other Topics Concern ??? Caffeine Concern No 1 pot of coffee daily ??? Special Diet No regular ??? Exercise No work is physical Social History Narrative Family History: Family History Problem Relation Age of Onset ??? Arthritis Mother ??? Circulatory Father ??? C.A.D. Maternal Grandmother ??? C.A.D. Paternal Grandmother ??? Coronary Artery Disease No family hx of ??? Breast Cancer No family hx of ??? Colon Cancer No family hx of ??? Prostate Cancer No family hx of Hernias: No ROS: The 10 point review of systems is negative other than noted in the HPI and above. PE: General- Well-developed, well-nourished, patient able to get up on table without difficulty. HEENT- Normocephalic and atraumatic. Pupils equal and round. Mucous membranes moist. Sclera are nonicteric. Neck- No lymphadenopathy or masses Respirations- are regular and non labored Abdomen is abdomen is soft without significant tenderness, masses, organomegaly or guarding Hernia- Left inguinal hernia is present with valsalva Right inguinal hernia is not present with valsalva The hernia is reducible Testicles are normal Varix- left present Imagin/17 - CT, questionable small amount of fat in left inguinal canal Assesment: LIH, reducible, symptomatic Plan: We have discussed observation, reduction techniques and importance, incarceration and strangulation signs, symptoms and importance as well as need to seek emergency treatment. We have discussed surgery in detail, including risk, benefits, complications, mesh, infection, nerveand cord damage and their sequelae including chronic pain and testicular loss, lifting and activity limits after surgery. He has been given literature to review. We also discussed laparoscopic surgery,including transabdominal surgery and complications. We will schedule surgery at patient's convenience. Time spent with the patient with greater that 50% of the time in discussion was 30 minutes. Jono Delarosa MD Please route or send letter to: Primary Care Provider (PCP) and Include Progress Note ONAL LINES AGENT Casi Hardy REGISTERED NURSE AMBULATORY - 07/10/2018 1:00 PM CST HPI ROS (Review of Systems): Cardiovascular: Positive for leg pain, hypertension and hyperlipidemia. GASTROINTESTINAL: Positive for abdominal pain. MUSCULOSKELETAL: Positive for arthralgias. Physical Exam ONAL LINES AGENT documented in this encounter Plan of Treatment Not on filedocumented as of this encounter Visit Diagnoses Diagnosis Left inguinal hernia - Primary Inguinal hernia without mention of obstr uction or gangrene, unilateral or unspecified, (not specified as recurrent ) documented in this encounter Additional Health Concerns Assessment Noted Time PHQ-9 Depression Total Score: 0 06/10/2018 7:05 AM CDT documented as of this encounter Care Teams Software Specialist Relationship Specialty Start Date End Date Leticia Armendariz MD PCP - General Internal Medicine 03/17/15 Leticia Armendariz MD PCP - Assigned PCP 06/30/14 [facility] [address] [phone] Nahum Lemus MD 09/16/16 [facility] [address] [facility] [place] [id number] Karuna Ramirez MD MD Cardiology 09/16/16 Karime Castro DO Referring Physician Orthopedics 05/13/17 [facility] [address] [facility] [address] [place], [place] [phone] Tito Almonte MD MD Orthopedics 05/13/17 [address] [facility] [address] [place], [place] [phone] Leticia Armendariz MD Assigned PCP 06/30/14 01/06/[address] [phone] documented as of this encounter
--- OUTSIDE RECORDS SUMMARY | 2022-06-25 13:50 | XMS_ITS | Encounter Summary ---
:1965 Author Organization [facility] Address [address] [place] [address] Care Team Providers Name Role Phone Leticia Armendariz MD Primary Care Provider Nahum Lemus MD Unavailable Karuna Ramirez MD Unavailable [phone] Karime Castro DO Unavailable Tito Almonte MD Unavailable Ro Reyna NP Unavailable Encounter Details Date Type Department Care Team Description 02/21/2019 Travel Social History Tobacco Use Types Packs/Day [...] documented as of this encounter Care Teams Campaign Worker Relationship Specialty Start Date End Date Leticia Armendariz MD PCP - General Internal Medicine 03/17/15 Nahum Lemus MD 09/16/16 [facility] [address] [facility] [place] [phone] Karuna Ramirez MD MD Cardiology 09/16/16 Karime Castro DO Referring Physician Orthopedics 05/13/17 [facility] [address] [facility] [address] [place] [address] Tito Almonte MD MD Orthopedics 05/13/17 [address] [facility] [address] [place] [address] Ro Reyna NP Assigned PCP 01/07/19 08/25/19 [address] [place], [place] [phone] documented as of this encounter
--- OUTSIDE RECORDS SUMMARY | 2022-06-25 13:50 | XMS_ITS | Encounter Summary ---
:1965 Author Organization [facility] Address [address] [place] [address] Care Team Providers Name Role Phone Leticia Armendariz MD Primary Care Provider Nahum Lemus MD Unavailable Karuna Ramirez MD Unavailable [phone] Karime Castro DO Unavailable Tito Almonte MD Unavailable Leticia Armendariz MD Unavailable Leticia Armendariz MD Unavailable Reason for Visit Reason Comments Abdominal Pain Encounter Details Date Type Department Care Team Description 07/07/2018 Emergency [facility] Fransisco Rubalcava MD Abdominal pain, left lower quadrant; [facility] Emergency Dep t [facility]ERG[facility] PHYSIC[facility] Unilateral inguinal hernia w ithout obstruction or gangrene, recurrence not specified [address] [place], [place] [address] [address] [place] [id number] [place] [address] [place], [place] [id number] (Wo rk) Social History Tobacco Use Types Packs/Day Years Used Date Smoking Tobacco: Every Day Cigarettes Smokeless Tobacco: Never Comments: 1 pack daily Alcohol Use Standard Drinks/Week Comments Yes 0 (1 standard drink = 0.6 oz pure alcoho l) 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 Date Recorded Male 08/13/2020 9:06 AM [employer] 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 Your evaluation today does not show the exact cause for your pain. Your provider today has decided that it is unlikely your pain is due to a life threatening problem, or a problem requiring surgery or hospital admission. Sometimes those problems cannot be found right away, so it is very important that you follow up as directed. Sometimes only the changes which occur over time allow the cause of your pain to be found. Generally, every Emergency Department visit should have a follow-up clinic visit with either a primary or a specialty clinic/provider. Please follow-up as instructed by your emergency provider today. With abdominal pain, we often recommend very close follow-up, such as the following day. ADULTS: Return to the Emergency Department right away if: ??? You get an oral temperature above 102oF or as directed by your provider. ??? You have blood in your stools. This may be bright red or appear as black, tarry stools. ??? You keep vomiting (throwing up) or cannot drink liquids. ??? You see blood when you vomit. ??? You cannot have a bowel movement or you cannot pass gas. ??? Your stomach gets bloated or bigger. ??? Your skin or the whites of your eyes look yellow. ??? You faint. ??? You have bloody, frequent or painful urination (peeing). ??? You have new symptoms or anything that worries you. CHILDREN: Return to the Emergency Department right away if your child has any of the above-listed symptoms or the following: ??? Pushes your hand away or screams/cries when his/her belly is touched. ??? You notice your child is very fussy or weak. ??? Your child is very tired and is too tired to eat or drink. ??? Your child is dehydrated. Signs of dehydration can be: o Significant change in the amount of wet diapers/urine. o Your or child starts to have dry mouth and lips, or no saliva (spit) or tears. WOMEN: Return to the Emergency Department right away if you have any of the above-listed symptoms or the following: ??? You have bleeding, leaking fluid or passing tissue from the vagina. ??? You have worse pain or cramping, or pain in your shoulder or back. ??? You have vomiting that will not stop. ??? You have a temperature of 100oF or more. ??? Your baby is not moving as much as usual. ??? You faint. ??? You get a bad headache with or without eye problems and abdominal pain. ??? You have a seizure. ??? You have unusual discharge from your vagina and abdominal pain. Abdominal pain is pretty common during . Your pain may or may not be related to your . You should follow-up closely with your OB provider so they can evaluate you and your baby. Untilyou follow-up with your regular provider, do the following: ??? Avoid sex and do not put anything in your vagina. ??? Drink clear fluids. ??? Only take medications approved by your provider. MORE INFORMATION: Appendicitis: A possible cause of abdominal pain in any person who still has their appendix is acuteappendicitis. Appendicitis is often hard to diagnose. Testing does not always rule out early appendicitis or other causes of abdominal pain. Close follow-up with your provider and re-evaluations may beneeded to figure out the reason for your abdominal pain. Follow-up: It is very important that you make an appointment with your clinic and go to the appointment. If you do not follow-up with your primary provider, it may result in missing an important development which could result in permanent injury or disability and/or lasting pain. If there is any problem keeping your appointment, call your provider or return to the Emergency Department. Medications: Take your medications as directed by your provider today. Before using licl-cfo-whjfvjrzxbnkwiwavl, ask your provider and make sure to take the medications as directed. If you have any questions about medications, ask your provider. Diet: Resume your normal diet as much as possible, but do not eat fried, fatty or spicy foods while you have pain. Do not drink alcohol or have caffeine. Do not smoke tobacco. Probiotics: If you have been given an antibiotic, you may want to also take a probiotic pill or eat yogurt with live cultures. Probiotics have good bacteria to help your intestines stay healthy. Studies have shown that probiotics help prevent diarrhea (loose stools) and other intestine problems (including C. diff infection) when you take antibiotics. You can buy these without a prescription in the pharmacy section of the store. If you were given a prescription for medicine here today, be sure to read all of the information (including the package insert) that comes with your prescription. This will include important information about the medicine, its side effects, and any warnings that you need to know about. The pharmacist who fills the prescription can provide more information and answer questions you may have about the medicine. If you have questions or concerns that the pharmacist cannot address, please call or return to the Emergency Department. Remember that you can always come back to the Emergency Department if you are not able to see your regular provider in the amount of time listed above, if you get any new symptoms, or if there is anything that worries you. documented in this encounter Medications at Time of Discharge Medication Sig Dispensed Refills Start Date End Date omeprazole (PRILOSEC) 20 Take 20 mg by 0 MG CR capsule mouth daily amLODIPine (NORVASC) 5 MG TAKE 1 TABLET (5 90 tablet 1 02/201810/05/2018 tabletIndications: Atrial MG) BY MOUTH DAILY fibrillation status post cardioversion (H) dicyclomine (BENTYL) 10 TAKE 1 CAPSULE BY 240 capsule 3 03/0607/24/2018 MG capsule ORAL ROUTE 2-4 TIMES EVERY DAY fenofibrate 48 MG tablet Take 96 mg by 0 04/28/20 18 07/17/2018 mouth fenofibrate 48 MG Take 2 tablets (96 180 tablet 1 04/28/2018 10/18/2018 tabletIndications: mg) by mouth daily Elevated triglycerides with high cholesterol losartan (COZAAR) 50 MG TAKE 1 TABLET (50 90 tablet 1 06/2812/21/2018 tabletIndications: Atrial MG) BY MOUTH DAILY fibrillation status post cardioversion (H) tamsulosin (FLOMAX) 0.4 Take 1 capsule 90 capsule 3 01/05/20 18 01/08/2021 MG capsuleIndications: (0.4 mg) by mouth Dysuria daily zolpidem (AMBIEN) 10 MG TAKE 1 TABLET BY 30 tablet 1 201710/19/2018 tabletIndications: MOUTH AT BEDTIME Primary insomnia NEEDED documented as of this encounter ED Notes Angy Chong - 07/07/2018 12:59 PM CDT Patient discharged to home. Patient received follow-up information with PCP as needed and follow-up with Surgical consultants within 1 week. Patient received discharge instructions and has no other questions at this time. Angy Chong - 07/07/2018 11:05 AM CDT Patient presents with left-sided abdominal pain for the past month on/off. Patient has history of diverticulosis with flare-ups. Patient states pain has gotten worse in the past month, but yesterday, noticed mass in left lower abdomen with pain and swelling. ABCDs intact, alert and oriented x 4. Louie Rubalcava MD - 07/07/2018 10:58 AM CDT History Chief Complaint: Abdominal Pain HPI Feng Perez is a 53 year old male who presents to the emergency department today with abdominalpain. Patient reports 3 years ago he was told he has diverticulosis. For the last month he notes that the left side is swollen on the abdomen, with associated intermittent pain. Last night he felt likethere was a lump, with associated pain this morning not resolving, he decided to come into the ED today. The pain is at the bulge area and feels warm and wet and radiates to the front of the abdomen.He rates his pain as 5/10. He denies testicular pain, hematuria, dysuria, vomiting, black or bloody stool. He denies recent heavy lifting, trauma, straining. Allergies: No Known Drug Allergies Medications: Fenofibrate Norvasc Bentryl Cozaar Prilosec Flomax Ambien Past Medical History: Atrial fibrillation Primary insomnia Hypertension Tremors of nervous system Cervical disk herniation Arrhythmia Complication of anesthesia Hepatitis Palpitations Past Surgical History: Colonoscopy Fusion cervical anterior Genitourinary Testicle surgery Vasectomy Vasovasostomy Family History: Arthritis Circulatory CAD Social History: The patient was alone. Smoking Status: Current every day Smokeless Tobacco: Never Alcohol Use: 0.0 oz/week Marital Status: Review of Systems Gastrointestinal: Positive for abdominal distention (swelling on the left side on the right) and abdominal pain. Negative for blood in stool and vomiting. Genitourinary: Negative for dysuria, hematuria and testicular pain. All other systems reviewed and are negative. Physical Exam Patient Vitals for the past 24 hrs: BP Temp Temp src Heart Rate Resp SpO2 07/07/18 1115 (!) 126/98 - - - - - 07/07/18 1109 - - - - - 97 % 07/07/18 1108 146/85 - - - - - 07/07/18 1104 146/85 97.6 ??F (36.4 ??C) Oral 85 16 97 % Physical Exam VS: Reviewed per above HENT: Mucous membranes moist EYES: sclera anicteric CV: Rate as noted, regular rhythm. RESP: Effort normal. Breath sounds are normal bilaterally. GI: minimal left sided tenderness, not distended. : No testicular tenderness, bulging ballotable protrusion in the left inguinal canal. NEURO: Alert, moving all extremities MSK: No deformity of the extremities SKIN: Warm and dry Emergency Department Course Laboratory: Laboratory findings were communicated with the patient who voiced understanding of the findings. UA: clear, yellow urine all WNL Lactic Acid: 0.7 CBC: AWNL (WBC 6.4, HGB 15.8, PLT 203) BMP: AWNL (Creatinine 1.06) Procedures: Procedure Note: Hernia reduction Indication: Suspected hernia Consent: Verbal consent obtained after reviewing the risk and benefits of this. Technique: With gentle and gradual slow movements and pressure over the area of tenderness, the hernia was reduced and pt was pain free. Outcome: pt is pain free. Emergency Department Course: Nursing notes and vitals reviewed. 1104: I performed an exam of the patient as documented above. IV was inserted and blood was drawn for laboratory testing, results above. The patient provided a urine sample here in the emergency department. This was sent for laboratory testing, findings above. 1236: Findings and plan explained to the Patient. Patient discharged home with instructions regarding supportive care, medications, and reasons to return. The importance of close follow-up was reviewed. I personally reviewed the laboratory results with the Patient and answered all related questions prior to discharge. Impression & Plan Medical Decision Making: Patient presents to the ER with 1 day of left inguinal mass and associated pain radiating into the abdomen. Initial vital signs are unremarkable. Patient declined pain medicine. On exam there is evidence of left inguinal hernia. This was successfully reduced at bedside according to the procedure note above. His pain did improve after this. There is no evidence of bowel ischemia with normal lactate. Urinalysis revealed no evidence of infection or blood. Patient has reported history of diverticulosis and states that he has chronic intermittent left-sided abdominal discomfort. He has not had fevers orblood in the stool or worsening pain. In the past he has reportedly had CT imaging for similar sympto ms and there was no evidence of diverticulitis. Based on minimal tenderness on exam and history, I have a lower suspicion that his abdominal discomfort is secondary to diverticulitis flare. Patient wasdischarged home with general surgery outpatient follow-up to discuss hernia repair. Close return precautions were discussed. Diagnosis: ICD-10-CM 1. Abdominal pain, left lower quadrant R10.32 2. Unilateral inguinal hernia without obstruction or gangrene, recurrence not specified K40.90 Disposition: discharged to home Scribe Disclosure: Araseli Stallworth, am serving as a scribe at 11:04 AM on 07/07/2018 to document services personally performed by Louie Rubalcava MD based on my observations and the provider's statements to me. 07/07/2018 [facility] EMERGENCY DEPARTMENT Louie Rubalcava MD 07/07/18 [id number] documented in this encounter Plan of Treatment Not on filedocumented as of this encounter Procedures Procedure Name Priority Date/Time Associated Comments Diagnosis CBC WITH PLATELETS & STAT 07/07/2018 11:55 Res ults for this DIFFERENTIAL AM CDT procedure are i n the results section. LACTIC ACID STAT 07/07/2018 11:55 Results for this AM CDT procedure are i n the results section. BASIC METABOLIC PANEL STAT 07/07/2018 11:55 Re sults for this AM CDT procedure are i n the results section. ROUTINE UA WITH STAT 07/07/2018 11:46 Results for this MICROSCOPIC AM CDT procedure are i n the results section. documented in this encounter Results Lactic acid (07/07/2018 11:55 AM CDT) P athologist Signature Lactic Acid 0.7 0.4 - 2.0 07/07/2018 [place] mmol/L 12:00 PM T [facility] Specimen Anatomical Collection Method Collection Time Receive d Time (Source) Location / / Volume Laterality Blood specimen 07/07/2018 11:55 8 (specimen) AM CDT 11:56 AM CDT Louie Rubalcava MD LAB - BLOOD ORDERABLES Performing Organization Address City/State/ZIP Code Phon e Number [place] [address] [address] [place] [phone] [place] [phone] CBC with platelets differential (07/07/2018 11:55 AM CDT) Patholo gist Method Time Signature WBC 6.4 4.0 - 07/07/2018 [facility] 11.0 12:00 PM [facility] 10e9/L [facility] RBC Count 5.05 4.4 - 5.9 07/07/2018 [place] 10e12/L 12:00 PM [facility] Hemoglobin 15.8 13.3 - 07/07/2018 [place] 17.7 g/dL 12:00 PM [facility] Hematocrit 46.7 40.0 - 07/07/2018 [place] 53.0 % 12:00 PM [facility] MCV 93 78 - 100 07/07/2018 [place] fl 12:00 PM [facility] MCH 31.3 26.5 - 07/07/2018 [place] 33.0 pg 12:00 PM [facility] MCHC 33.8 31.5 - 07/07/2018 [facility] 36.5 g/dL 12:00 PM [facility] RDW 12.5 10.0 - 07/07/2018 [facility] 15.0 % 12:00 PM [facility] Platelet Count 203 150 - 450 07/07/2018 [facility] 10e9/L 12:00 PM [facility] Diff Method Automated 07/07/2018 [facility] Method 12:00 [facility] % Neutrophils 61.3 % 07/07/2018 [facility] 12:00 PM [facility] % Lymphocytes 26.6 % 07/07/2018 [facility] 12:00 PM [facility] % Monocytes 9.8 % 07/07/2018 [facility] 12:00 PM [facility] % Eosinophils 1.1 % 07/07/2018 [facility] 12:00 PM [facility] % Basophils 0.6 % 07/07/2018 [facility] 12:00 [facility] % Immature 0.6 % 07/07/2018 [facility] Granulocytes 12:00 [facility] Nucleated RBCs 0 0 /100 07/07/2018 [facility] 12:00 PM [facility] Absolute 3.9 1.6 - 8.3 07/07/2018 [facility] Neutrophil 10e9/L 12:00 PM [facility] Absolute 1.7 0.8 - 5.3 07/07/2018 [facility] Lymphocytes 10e9/L 12:00 [facility] Absolute 0.6 0.0 - 1.3 07/07/2018 [facility] Monocytes 10e9/L 12:00 PM [facility] Absolute 0.1 0.0 - 0.7 07/07/2018 [facility] Eosinophils 10e9/L 12:00 PM [facility] Absolute 0.0 0.0 - 0.2 07/07/2018 [facility] Basophils 10e9/L 12:00 PM [facility] Abs Immature 0.0 0 - 0.4 07/07/2018 [facility] Granulocytes 10e9/L 12:00 [facility] Absolute 0.0 07/07/2018 [facility] Nucleated RBC 12:00 PM [facility] Specimen Anatomical Collection Method Collection Time Receive d Time (Source) Location / / Volume Laterality Blood specimen 07/07/2018 11:55 8 (specimen) AM CDT 11:56 AM CDT Louie Rubalcava MD LAB - BLOOD ORDERABLES Performing Organization Address City/State/ZIP Code Phon e Number [place] [address] [address], [place] [address] [facility] [address] [place], [place] [address] [facility] [phone] Basic metabolic panel (07/07/2018 11:55 AM CDT) athologist Signature Sodium 140 133 - 144 07/07/2018 [facility] mmol/L 12:16 PM [facility] Potassium 4.3 3.4 - 5.3 07/07/2018 [place] mmol/L 12:16 PM [facility] Chloride 106 94 - 109 07/07/2018 [place] mmol/L 12:16 PM [facility] Carbon Dioxide 28 20 - 32 07/07/2018 [place] mmol/L 12:16 PM [facility] Anion Gap 6 3 - 14 07/07/2018 [place] mmol/L 12:16 PM [facility] Glucose 82 70 - 99 07/07/2018 [place] mg/dL 12:16 PM [facility] Urea Nitrogen 11 7 - 30 07/07/2018 [facility] mg/dL 12:16 PM [facility] Creatinine 1.06 0.66 - 07/07/2018 [facility] 1.25 mg/dL 12:16 PM [facility] GFR Estimate 73 >60 07/07/2018 [place] mL/min/1.7 12:[address] Comment: Non GFR Calc GFR Estimate If 88 >60 mL/min/1.7m2 07/07/2018 12:16 PM [facility] Comment: GFR Calc Calcium 8.6 8.5 - 10.1 mg/dL 07/07/2018 12:16 PM [facility] Specimen Anatomical Collection Method Collection Time Receive d Time (Source) Location / / Volume Laterality Blood specimen 07/07/2018 11:55 8 (specimen) AM CDT 11:56 AM CDT Louie Rubalcava MD LAB - BLOOD ORDERABLES Performing Organization Address City/State/ZIP Code Phon e Number [facility] [address] [place], [place] [address] [facility] [address] [place], [place] [address] [facility] [phone] UA with Microscopic (07/07/2018 11:46 AM CDT) [facility] Method Time Signature Color Urine Yellow 07/07/2018 [facility] 12:08 PM [facility] Appearance Urine Clear 07/07/2018 [facility] 12:08 PM [facility] Glucose Urine Negative NEG^Negat 07/07/2018 [place] audra mg/dL 12:08 PM [facility] Bilirubin Urine Negative NEG^Negat 07/07/2018 [place] audra 12:08 PM [facility] Ketones Urine Negative NEG^Negat 07/07/2018 [place] audra mg/dL 12:08 PM [facility] Specific [place] 1.006 1.003 - 07/07/2018 [facility] Urine 1.035 12:08 PM [facility] Blood Urine Negative NEG^Negat 07/07/2018 [place] audra 12:08 PM [facility] pH Urine 7.0 5.0 - 7.0 07/07/2018 [place] pH 12:08 PM [facility] Protein Albumin Negative NEG^Negat 07/07/2018 [place] Urine audra mg/dL 12:08 PM [facility] Urobilinogen 0.0 0.0 - 2.0 07/07/2018 [place] mg/dL mg/dL 12:08 PM [facility] Nitrite Urine Negative NEG^Negat 07/07/2018 [place] audra 12:08 PM [facility] Leukocyte Negative NEG^Negat 07/07/2018 [place] Esterase Urine audra 12:08 PM [facility] Source Midstream 07/07/2018 [facility] Urine 11:46 AM [facility] WBC Urine <1 0 - 5 07/07/2018 [facility] /HPF 12:08 PM [facility] RBC Urine <1 0 - 2 07/07/2018 [facility] /HPF 12:08 PM [facility] Specimen (Source) Anatomical Collection Method Collection Time Re ceived Time Location / / Volume Laterality Examination of 07/07/2018 11:46 8 midstream urine AM CDT 11:47 AM CDT specimen (procedure) Louie Rubalcava MD LAB - URINE ORDERABLES Performing Organization Address City/State/ZIP Code Phon e Number M [facility] [address], [place] [address] [facility] [address], [place] [address] [facility] [phone] documented in this encounter Visit Diagnoses Diagnosis Abdominal pain, left lower quadrant Unilateral inguinal hernia without obstr uction or gangrene, recurrence not specified documented in this encounter Additional Health Concerns Assessment Noted Time PHQ-9 Depression Total Score: 0 06/10/2018 7:05 AM CDT documented as of this encounter Care Teams Pizza Maker Relationship Specialty Start Date End Date Leticia Armendariz MD PCP - General Internal Medicine 03/17/15 Leticia Armendariz MD PCP - Assigned PCP 06/30/14 11/07/18 [facility] [address] [place] [address] [id number] Nahum Lemus MD 09/16/16 [facility] [address] [place] [id number] Karuna Ramirez MD MD Cardiology 09/16/16 Karime Castro DO Referring Physician Orthopedics 05/13/17 [facility] [address] [facility] [address] [place] [address] Tito Almonte MD MD Orthopedics 05/13/17 [address] [facility] [address] [place], [place] [phone] Leticia Armendariz MD Assigned PCP 06/30/14 01/06/[address] [address] documented as of this encounter
--- OUTSIDE RECORDS SUMMARY | 2022-06-25 13:50 | XMS_ITS | Encounter Summary ---
:1965 Author Organization [facility] Address [address] [place] [address] Care Team Providers Name Role Phone Leticia Leon MD Primary Care Provider Nahum Lemus MD Unavailable Karuna Ramirez MD Unavailable [phone] Karime Castro DO Unavailable Tito Almonte MD Unavailable Leticia Leon MD Unavailable Leticia Leon MD Unavailable Reason for Visit Reason Onset Date Comments Schedule Surgery 07/10/2018 OPEN LEFT INGUINAL H ERNIA REPAIR WITH MESH Encounter Details Date Type Department Care Team Description 07/10/2018 [facility] Jono Meneses MD Schedule Surgery (OPEN Surgery Clinic [address] LEFT I NGUINAL HERNIA [place] [address] REPAIR WITH MESH ) 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 MENESES Pre-Op Appt Date: PATIENT TO SCHEDULE Post-Op Appt Date: PATIENT TO SCHEDULE Packet sent out: GIVEN TO PATIENT Pre-cert/Authorization completed: Not Applicable Date: 07-21-18 OPEN LEFT INGUINAL HERNIA REPAIR WITH MESH GENERAL PT INST TO HAVE H&P WITH DR. LEON 90 MINS REQ PA ASSIST DJM ALW PROVOST documented in this encounter Plan of Treatment Not on filedocumented as of this encounter Visit Diagnoses Not on filedocumented in this encounter Additional Health Concerns Assessment Noted Time PHQ-9 Depression Total Score: 0 06/10/2018 7:05 AM CDT documented as of this encounter Care Teams Patient Support Specialist Relationship Specialty Start Date End Date Leticia Leon MD PCP - General Internal Medicine 03/17/15 Leticia Leon MD PCP - Assigned PCP 06/30/14 11/07/[address] [address] Nahum Lemus MD 09/16/16 [place] [facility] [address] [facility] [place] [place] [address] Karuna Ramirez MD MD Cardiology 09/16/16 Karime Castro DO Referring Physician Orthopedics 05/13/17 [facility] [address] [address] Tito Almonte MD MD Orthopedics 05/13/[address] [employer] [place] [address] Leticia Leon MD Assigned PCP 06/30/14 01/06/19 [place] [address] [place], [place] [address] documented as of this encounter
--- OUTSIDE RECORDS SUMMARY | 2022-06-25 13:50 | XMS_ITS | Encounter Summary ---
:1965 Author Organization [facility] Address [address] [place] [address] Care Team Providers Name Role Phone Leticia Armendariz MD Primary Care Provider Nahum Lemus MD Unavailable Karuna Ramirez MD Unavailable [phone] Karime Castro DO Unavailable Tito Almonte MD Unavailable Ro Reyna NP Unavailable Reason for Referral Diagnostic Imaging XR (Routine) - Closed Specialty Diagnoses / Procedures Referred By Contact Refer red To Contact Radiology. Diagnoses Low back pain radiating to right leg Lumbar disc herniation with radiculopathy Jorge Young, Xray Rscc Procedures XR Lumbar Epidural Injection Incl Imaging [facility] [address] [place] [phone] Fax: Referral ID Status Reason Start Date Expiration Date Visits Requ ested Visits Authorized [id number] Closed 02/13/2019 02/13/2020 1 1 Reason for Visit Reason Comments Pain Encounter Details Date Type Department Care Team Description 02/13/2019 Office Visit [facility] Jorge Young Low back pain radiating to right leg (Primary Dx); [facility] [place] Lumbar disc herniation with radiculopath y [place] [id number] [place] [address] 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 Continue to avoid heavy lifting or twisting at the lower back. NSAIDs, relaxants, heat or ice for symptoms. Follow up in clinic in 4 weeks if improving, or contact the office for a referral to a surgeon if not improving after 2 weeks. documented in this encounter Progress Notes Jorge Young PA-C - 02/13/2019 8:00 AM CDT [facility] Neurosurgery Clinic Visit CC: low back pain Primary care Provider: Leticia Armendariz Reason For Visit: Patient is following up for acute onset of low back pain with right radiculopathy. Seen at [place]: MRI02/01/19. HPI: Feng Perez is a 53 year old male who presents for evaluation of low back and right leg pain, weakness and numbness. Patient states injury occurred on 01/14/19 while lifting a 70-100# box in the attic. He states he was in a bent over position due to a cramped space and lifted with poor mechanics. He states his back locked up. The following 01/19/19 patient recalls sneezing that causedsevere increase in back pain and leg symptoms that caused him to seek care in the . He was evaluated and provided with a medrol dosepak, and cyclobenzaprine. He states the follow Tuesday he woke up at 4:30am to use the restroom and had excruciating pain that dropped him to the floor. He proceeded to follow up in the ED where an MRI was performed. He was given Toradol, and instructed to finish the medrol dosepak. Patient states he had a vacation planned for 02/02/19, and felt like he was not provided with a plan, nor followed up with and is here today to establish care. Pain is located in right glut and radiates down back of leg into the right right foot. Describes the pain as a kick in the ass with pain down the back of the thigh, burning into his calf, that radiates across the top of his foot. Numbness present in lateral lower leg, right foot and toes, patient states he has not been able to feel his toes since 01/20/19. He also states intermittently he notices pain of the anterior right anterior thigh. Pain is worsened with lifting, bending, sitting >5 minutes, and laying. Patient wakes frequently due to pain with sleeping aid Ambien. Pain is alleviated with walking for approximately 20-30 minutes. Patient feels weakness in the right leg, and states he is unable to move his right great toe. Denies bladder/bowel incontinence, trauma, systemic illness, fever. Treatments have included: Medrol DosePak with no relief, Flexeril, remaining Oxycodone from recent hernia repair surgery, OTC Ibuprofen and Tylenol by the handful, Chiropractic evaluation. Current pain: 5/10 At worst: 10/10 Past Medical History: Diagnosis Date ??? A-fib (H) ??? Arrhythmia afib ablation ??? Atrial fibrillation (H) ??? Complication of anesthesia ??? Gastroesophageal reflux disease ??? Hepatitis 15 yrs ago from bad food ??? Hypertension ??? Palpitations Past Medical History reviewed with patient during visit. Past Surgical History: Procedure Laterality Date ??? [...] ??? TESTICLE SURGERY ??? VASECTOMY ??? VASOVASOSTOMY Past Surgical History reviewed with patient during visit. Current Outpatient Medications Medication ??? amLODIPine (NORVASC) 5 MG tablet ??? dicyclomine (BENTYL) 10 MG capsule ??? fenofibrate (TRICOR) 48 MG tablet ??? losartan (COZAAR) 50 MG tablet ??? omeprazole (PRILOSEC) 20 MG CR capsule ??? oxyCODONE IR (ROXICODONE) 5 MG tablet ??? tamsulosin (FLOMAX) 0.4 MG capsule ??? zolpidem (AMBIEN) 10 MG tablet No current facility-administered medications for this visit. No Known Allergies Social History Socioeconomic History ??? Marital status: Spouse name: Not on file ??? Number of children: 2 ??? Years of education: Not on file ??? Highest education level: Not on file Occupational History Employer: [employer] Social Needs ??? Financial resource strain: Not on file ??? Food insecurity: Worry: Not on file Inability: Not on file ??? Transportation needs: Medical: Not on file Non-medical: Not on file Tobacco Use ??? Smoking status: Current Every Day Smoker Types: Cigarettes ??? Smokeless tobacco: Never Used ??? Tobacco comment: 1 pack daily Substance and Sexual Activity ??? Alcohol use: No Alcohol/week: 0.0 oz ??? 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 Sexual activity: Yes Partners: Female Comment: spouse Lifestyle ??? Physical activity: Days per week: Not on file Minutes per session: Not on file ??? Stress: Not on file Relationships ??? Social connections: Talks on phone: Not on file Gets together: Not on file Attends congregational service: Not on file Active member of club or organization: Not on file Attends meetings of clubs or organizations: Not on file Relationship status: Not on file ??? Intimate partner violence: Fear of current or ex partner: Not on file Emotionally abused: Not on file Physically abused: Not on file Forced sexual activity: Not on file Other Topics Concern ??? Parent/sibling w/ CABG, AR or angioplasty before 65F 55M? Not Asked [...] History Narrative ??? Not on file Family History Problem Relation Age of Onset ??? Arthritis Mother ??? Hypertension Mother ??? Circulatory Father ??? Coronary Artery Disease Father ??? Hypertension Father ??? Hyperlipidemia Father ??? C.A.D. Maternal Grandmother ??? C.A.D. Paternal Grandmother ??? Breast Cancer No family hx of ??? Colon Cancer No family hx of ??? Prostate Cancer No family hx of ROS: 10 point ROS neg other than the symptoms noted above in the HPI. Vital Signs: BP (!) 148/96 (BP Location: Right arm, Patient Position: Chair, Cuff Size: Adult Large) Ht 1.778 m (5' 10) Wt 92.5 kg (204 lb) BMI 29.27 kg/m?? Examination: Constitutional: Alert, well nourished, NAD. HEENT: Normocephalic, atraumatic. Pulmonary: Without shortness of breath, normal effort. Lymph: no lymphadenopathy to low back or LE. Integumentary: Skin is free of rashes or lesions. Cardiovascular: No pitting edema of BLE. Neurological: Awake Alert Oriented x 3 Speech clear Cranial nerves II - XII grossly intact PERRL EOMI Face symmetric Tongue midline Motor exam Hip Flexor: Right: 5/5 Left: 5/5 Hip Adductor: Right: 5/5 Left: 5/5 Hip Abductor: Right: 5/5 Left: 5/5 Gastroc Soleus: Right: 5/5 Left: 5/5 Tib/Ant: Right: 3/5 Left: 5/5 EHL: Right: 5 Left: 5 Knee extension Right 4/5 Left: 5/5 Sensation: absent right sole, decreased lateral lower leg, otherwise intact to lower extremities. Reflexes are 1+ in the patellar and 2+ Achilles bilaterally. There is no clonus. Difficulty heel walk, toe walk normal with good balance. Finger to Nose smooth Pronator drift negative Musculoskeletal: Gait: Able to stand from a seated position. Normal non-antalgic, non-myelopathic gait, with mild limp on right LE. Lumbar examination reveals tenderness of the spine at L4-S1 with mild paraspinous muscles hypertonicity. Hip height is symmetrical. Negative SI joint, sciatic notch or greater trochanteric tenderness to palpation bilaterally. Straight leg raise is pos on right. AROM restricted due to pain with extension and RLF. Imaging: MRI of the lumbar spine from [facility] on 02/01/19 was reviewed in the office today. EXAM:?MR LUMBAR SPINE WITHOUT IV CONTRAST? COMPARISON:?X-ray January 20, 2019? FINDINGS:? Lumbar vertebral bodies are normal in stature. Slight degenerative grade 1?? retrolisthesis of L4-5.? No suspicious bone marrow signal abnormality.? The conus is normal in position and morphology.? Partially imaged right renal cyst.? Multilevel lumbar spine degenerative changes are detailed below:? L1-2: Noncontributory.? L2-3: Small broad-based disc bulge. Facet arthropathy. Mild spinal canal?? stenosis. Mild bilateral neuroforaminal stenosis.? L3-4: Small broad-based disc bulge and annular fissure. Facet arthropathy. Mild?? spinal canal stenosis. Mild to moderate bilateral neuroforaminal stenosis.? L4-5: Broad-based disc bulge with superimposed right paracentral disc protrusion?? which severely narrows the lateral recess, abutting and potentially impinging?? the right L5 nerve root (series 8 images #[id number]). Facet arthropathy. Mild?? central canal stenosis. Mild bilateral neuroforaminal stenosis.? L5-S1: Right paracentral disc protrusion moderately narrows the right lateral?? recess with potential abutment of the right S1 nerve root (series 8 images #22).?? Facet arthropathy. Mild central canal stenosis. Mild bilateral neuroforaminal?? stenosis.? For the purpose of this report, 5 lumbar type vertebral bodies are assumed. ?? Close radiographic correlation recommended prior to any spinal intervention or?? surgery. ? [id number]?? Assessment/Plan: Feng Perez is a 53 year old male subacute LBP with right radiculopathy weakness and sensation loss. Disc extrusions right L4-5 and right L5-S1. - LUZ transforaminal ordered for right L4-5 and right L5-S1 Follow up in 4 weeks or will refer to surgery if no improvement. Jorge Young PA-C [facility] Spine and Brain. documented in this encounter Nursing Notes Radha Reyna - 02/13/2019 8:00 AM CDT Feng to follow up with Primary Care provider regarding elevated blood pressure. documented in this encounter Plan of Treatment Not on filedocumented as of this encounter Results XR Lumbar Epidural Injection Incl Imaging (02/21/2019 4:28 PM CDT) Anatomical Region Laterality Modality Spine Radio Fluoroscopy Specimen (Source) Anatomical Location Collection Method / Collectio n Time Received Time / Laterality Volume Impressions 02/22/2019 10:04 AM CDT Impression: ??Technically successful ??transforaminal lumbar epidural steroid injection ??with favorable initi al pain relief. alf results pending. BEREKET BLEL PA-C Narrative 02/22/2019 10:04 AM CDT XR LUMBAR EPIDURAL INJECTION INCL IMAGING ? 02/21/2019 4:28 PM ?? History: ??back pain radiating to right leg; Lumbar disc herniation with radiculopathy. Procedure: ??The risks (bleeding, infect ion, reaction to contrast and medications) and benefits of the procedu re were explained to the patient and consent was obtained. ??in g sterile technique and fluoroscopic guidance a #22 [...] the original. XR LUMBAR EPIDURAL INJECTION INCL IMAGIN G 02/21/2019 4:28 PM History: back pain [...] steroid injection with favorable initial pain relief. quality control projectionist results pending. BEREKET BELL PA-C Jorge Young PA-C [facility] DIAGNOSTIC IMAGING ORDER WHITNEY documented in this encounter Visit Diagnoses Diagnosis Low back pain radiating to right leg - P rimary Lumbago Lumbar disc herniation with radiculopath y Displacement of lumbar intervertebral di sc without myelopathy Low back pain radiating to right leg Lumbago Lumbar disc herniation with radiculopath y Displacement of lumbar intervertebral di sc without myelopathy documented in this encounter Additional Health Concerns Assessment Noted Time PHQ-9 Depression Total Score: 0 06/10/2018 7:05 AM CDT documented as of this encounter Care Teams Supervisor Graphite Relationship Specialty Start Date End Date Leticia Armendariz MD PCP - General Internal Medicine 03/17/15 Nahum Lemus MD 09/16/16 [place] [facility] [address] [facility] [place] [id number] Karuna Ramirez MD MD Cardiology 09/16/16 Karime Castro DO Referring Physician Orthopedics 05/13/17 [facility] [address] [facility] [address] [place] [address] Tito Almonte MD MD Orthopedics 05/13/17 [address] [facility] [address] [place] [address] Ro Reyna NP Assigned PCP 01/07/19 08/25/19 [address] [place], [place] [id number] documented as of this encounter
--- OUTSIDE RECORDS SUMMARY | 2022-06-25 13:50 | XMS_ITS | Encounter Summary ---
:1965 Author Organization [facility] Address [address] [place] [address] Care Team Providers Name Role Phone Leticia Armendariz MD Primary Care Provider Nahum Lemus MD Unavailable Karuna Ramirez MD Unavailable [phone] Karime Castro DO Unavailable Tito Almonte MD Unavailable Leticia Armendariz MD Unavailable Leticia Armendariz MD Unavailable Reason for Visit Reason Onset Date Comments Results 07/18/2018 labs Encounter Details Date Type Department Care Team Description 07/18/2018 Telephone [facility] Ro Reyna, Results (labs) [facility] [address] [place] [address] [place] [address] [place] [address] [phone] Social History Tobacco Use Types Packs/Day Years Used Date Smoking Tobacco: Every Day Cigarettes Smokeless Tobacco: Never Comments: 1 pack daily Alcohol Use Standard Drinks/Week Comments No 0 (1 standard drink = 0.6 oz pure alcoho l) 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 Date Recorded 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 Dana BOBBY CMA S AND CUSTOMER RELATIONS REP Telephone Encounter - Ro Reyna NP - 07/18/2018 1:52 PM SALES AND CUSTOMER RELATIONS REP Pt had minor nasal congestion day of preop, afebrile, normal exam. Cleared for hernia surgery Ro Reyna CNP S AND CUSTOMER RELATIONS REP Telephone Encounter - Macy Villalta, RN - 07/18/2018 1:34 PM CST Reba from pre-admitting calling--the reviewed the pre-op labs and noticed that the WBC was elevated. Please advise if patient can continue with his surgery on Tuesday and notify Reba or anyone in pre-admitting. CBC RESULTS: Recent Labs Lab Test 07/17/18 0919 WBC 12.4* RBC 5.02 HGB 15.6 HCT 46.6 MCV 93 MCH 31.1 MCHC 33.5 RDW 12.7 PLT 227 Macy Villalta RN S AND CUSTOMER RELATIONS REP documented in this encounter Plan of Treatment Not on filedocumented as of this encounter Visit Diagnoses Not on filedocumented in this encounter Additional Health Concerns Assessment Noted Time PHQ-9 Depression Total Score: 0 06/10/2018 7:05 AM CDT documented as of this encounter Care Teams Material Damage Appraiser Relationship Specialty Start Date End Date Leticia Armendariz MD PCP - General Internal Medicine 03/17/15 Leticia Armendariz MD PCP - Assigned PCP 06/30/14 11/07/18 [place] [address] [place] [address] Nahum Lemus MD 09/16/16 [place] [facility] [address] [facility] [address] [place], [place] [id number] Karuna Ramirez MD MD Cardiology 09/16/16 Karime Castro DO Referring Physician Orthopedics 05/13/17 [facility] [address] [facility] [address] [place] [address] Tito Almonte MD MD Orthopedics 05/13/[address] [place], [place] [id number] Leticia Armendariz MD Assigned PCP 06/30/14 01/06/19 [facility] [address] [place], [place] [id number] documented as of this encounter
--- OUTSIDE RECORDS SUMMARY | 2022-06-25 13:50 | XMS_ITS | Encounter Summary ---
:1965 Author Organization [facility] Address [address] [place] [address] Care Team Providers Name Role Phone Leticia Armnedariz MD Primary Care Provider Nahum Lemus MD Unavailable Karuna Ramirez MD Unavailable [phone] Karime Castro DO Unavailable Tito Almonte MD Unavailable Leticia Armendariz MD Unavailable Leticia Armendariz MD Unavailable Reason for Visit Reason Onset Date Comments Refill Request 10/21/2018 zolpidem (duplicate) Encounter Details Date Type Department Care Team Description 10/21/2018 MyC Refill [facility] Leticia Armendariz Refill Request Clinic Demarco Bender MD (zolpidem (duplicate)) [address] [facility] [facility] [address] [address] [phone] Social History Tobacco Use Types Packs/Day Years Used Date Smoking Tobacco: Every Day Cigarettes Smokeless Tobacco: Never Comments: 1 pack daily Alcohol Use Standard Drinks/Week Comments No 0 (1 standard drink = 0.6 oz pure alcoho l) 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 Date Recorded 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 STRIAL YARD BRAKE COUPLER Telephone Encounter - Mary Pan RN - 10/23/2018 10:23 AM CST Duplicate request - addressed in 10/19/18 [facility] Refill encounter. STRIAL YARD BRAKE COUPLER documented in this encounter Plan of Treatment Not on filedocumented as of this encounter Visit Diagnoses Diagnosis Primary insomnia Persistent disorder of initiating or adrianne ntaining sleep documented in this encounter Additional Health Concerns Assessment Noted Time PHQ-9 Depression Total Score: 0 06/10/2018 7:05 AM CDT documented as of this encounter Care Teams Manager Consumer Insights Relationship Specialty Start Date End Date Leticia Armendariz MD PCP - General Internal Medicine 03/17/15 Leticia Armendariz MD PCP - Assigned PCP 06/30/14 11/07/[address] [id number] Nahum Lemus MD 09/16/16 [place] [facility] [address] [facility] [place] [id number] Karuna Ramirez MD MD Cardiology 09/16/16 Karime Castro DO Referring Physician Orthopedics 05/13/17 [facility] [address] [facility] [address] [place] [address] Tito Almonte MD MD Orthopedics 05/13/17 [facility] [place] [id number] [place] [address] Leticia Armendariz MD Assigned PCP 06/30/14 01/06/[address] [address] documented as of this encounter
--- OUTSIDE RECORDS SUMMARY | 2022-06-25 13:50 | XMS_ITS | Encounter Summary ---
:1965 Author Organization [place] Address [address] [place] [address] Care Team Providers Name Role Phone Leticia Armendariz MD Primary Care Provider Nahum Lemus MD Unavailable Karuna Ramirez MD Unavailable [phone] Karime Castro DO Unavailable Tito Almonte MD Unavailable Ro Reyna NP Unavailable Reason for Visit Reason Onset Date Comments Medication Request 02/16/2019 Encounter Details Date Type Department Care Team Description 02/16/2019 [facility] Jorge Young, Medication Request Orthopedic [facility] [place] [address] [facility] [address] [facility] [address] [place] [address] [place], [place] [address] [phone] Social History Tobacco Use Types Packs/Day Years Used Date Smoking Tobacco: Every Day Cigarettes Smokeless Tobacco: Never Comments: 1 pack daily Alcohol Use Standard Drinks/Week Comments No 0 (1 standard drink = 0.6 oz pure alcoho l) 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 Date Recorded 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 Asked that he call back in 2 weeks if noimprovement, otherwise make appointment to see Wayne Young PA-C in 4 weeks if having improvement. He verbalized understanding. Chery Ren RN Telephone Encounter - Jorge Young PA-C - 02/16/2019 12:48 PM CDT Tramadol for pain, flexeril for spasm. Left with triage. Jorge Young PA-C [facility] - [facility] Telephone Encounter - Toya Ren RN - 02/16/2019 10:44 AM CDT Feng Perez is a 53 year old male who calls with request for pain medication recommendation until he can get LUZ's that are scheduled for 02/21/19 at 3:30 pm. He has Flexeril 10mg leftover for urgent care in [place] that will run out the evening of 02/20/19. He takes it three times daily but doesn't feel it does much. Pain improves with walking and worsens with lying down. Pain is tolerable during the day with ibuprofen, aleve, Tylenol. Pain is worse in the evenings after work and at bedtime. Is able to sleep 2-3 hours only at a time. Patient currently taking 5 tabs of Ibuprofen at times and more than 3 times a day. Patient also has been taking Aleve at bedtime in addition to ibuprofen. He has been taking Tylenol also. Informed of maximum dosages of all three medications and cautioned him regarding the risk of damaging his kidneys and possible gastric bleeding. Recommended he take with food. Denies stomach upset at this time. Last Office Visit by provider: 02/13/19 Patient desires to have faxed or E-prescribe to pharmacy if available, otherwise he can picker operator in the office. Pharmacy selected in [place]. Phone number patient can be reached at: Cell number on file: Telephone Information: Can we leave a detailed message on this number? YES Medication requests may take up to 3 business days for a response Has patient been notified of this No Informed will check with provider and get back with him. Please advise. Chery Ren RN documented in this encounter Plan of Treatment Not on filedocumented as of this encounter Visit Diagnoses Diagnosis Low back pain radiating to right leg - P rimary Lumbago documented in this encounter Additional Health Concerns Assessment Noted Time PHQ-9 Depression Total Score: 0 06/10/2018 7:05 AM CDT documented as of this encounter Care Teams Emergency Generator Mechanic Relationship Specialty Start Date End Date Leticia Armendariz MD PCP - General Internal Medicine 03/17/15 Nahum Lemus MD 09/16/16 [place] [facility] [address] [facility] [place] [id number] Karuna Ramirez MD MD Cardiology 09/16/16 Karime Castro DO Referring Physician Orthopedics 05/13/17 [facility] [address] [id number] Tito Almonte MD MD Orthopedics 05/13/17 [facility] [address] [place], [place] [address] Ro Reyna, DICK Assigned PCP 01/07/19 08/25/19 [address] [place], [place] [id number] documented as of this encounter
--- OUTSIDE RECORDS SUMMARY | 2022-06-25 13:51 | XMS_ITS | Encounter Summary ---
:1965 Author Organization [place] Address [address] [place] [address]. [place] [address] Care Team Providers Name Role Phone Leticia Armendariz MD Primary Care Provider Nahum Lemus MD Unavailable Karuna Ramirez MD Unavailable [phone] Karime Castro DO Unavailable Tito Almonte MD Unavailable Leticia Armendariz MD Unavailable Leticia Armendariz MD Unavailable Reason for Referral Diagnostic Imaging XR - Closed Specialty Diagnoses / Procedures Referred By Contact Refer red To Contact Radiology. Diagnoses Arthritis of hip Tito Almonte MD Rh Xray Rscc Procedures XR Joint Injection Major Bilateral [facility] [address] [address] [place], [place] [address] [address] [place] [address] Phone: Fax: Referral ID Status Reason Start Date Expiration Date Visits Requ ested Visits Authorized [id number] Closed 11/07/2017 10/27/2018 1 1 MATIC RIVETING MACHINE OPERATOR Encounter Details Date Type Department Care Team Description 10/27/2017 Orders Only [facility] Orthopaedic Tito Almonte A rthritis of hip Clinic (Primary Dx) [address] [place] [address] [phone] (Wo rk) Social History Tobacco Use Types Packs/Day Years Used Date Smoking Tobacco: Every Day Cigarettes Smokeless Tobacco: Never Comments: 1 pack daily Alcohol Use Standard Drinks/Week Comments Yes 0 (1 standard drink = 0.6 oz pure alcoho l) 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 Date Recorded 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 ??Long-term results pending. JARRELL VINCENT PA-C Narrative 11/09/2017 4:52 PM AUTOMATIC RIVETING MACHINE OPERATOR XR JOINT INJECTION MAJOR BILATERAL ? 11/09/2017 3:41 PM ?? History: ??Bilateral intra-articular hip injections of Steroid and Lidocaine. PROCEDURE: The risks (including bleeding , infection, and allergy to contrast and medications) and benefits o f the procedure were explained to the patient and consent was obtained. ??Using sterile technique and fluoroscopic guidance, a #22 gauge needl e was placed into the bilateral hip joint using an anterior ap proach. ??A small amount of contrast was injected to confirm intraar ticular location of the needle tip. ??40mg of Kenalog and 3-4 mL Marcai ne 0.5% were injected per hip. Estimated blood loss during the procedur e was less than 5 mL. No specimens collected. No initial complica tion. ?? Fluoroscopy time: 2.4 minutes Images Obtained: 2 The patients pain level on both sides (0 -10 scale) were as follows: ?? PRE INJECTION ?? 5 ?? POST INJECTION 2 ?? Procedure Note Jarrell Vincent PA-C - 11/09/2017F ormatting of this note might be different from the original. XR JOINT INJECTION MAJOR BILATERAL 018 3:41 PM History: Bilateral intra-articular hip i njections of Steroid and Lidocaine. PROCEDURE: The risks (including bleeding , infection, and allergy to contrast and medications) and benefits o f the procedure were explained to the patient and consent was obtained. Using sterile technique and fluoroscopic guidance, a #22 gauge needl e was placed into the bilateral hip joint using an anterior ap proach. A small amount of contrast was injected to confirm intraar ticular location of the needle tip. 40mg of Kenalog and 3-4 mL Marcaine 0.5% were injected per hip. Estimated blood loss during the procedur e was less than 5 mL. No specimens collected. No initial complica tion. Fluoroscopy time: 2.4 minutes Images Obtained: 2 The patients pain level on both sides (0 -10 scale) were as follows: PRE INJECTION 5 POST INJECTION 2 IMPRESSION: Technically successful bilat eral hip steroid/anesthetic injection with partial initial pain reli ef. Long-term results pending. JARRELL VINCENT PA-C Tito Almonte MD IMG DIAGNOSTIC IMAGING ORDER WHITNEY documented in this encounter Visit Diagnoses Diagnosis Arthritis of hip - Primary Unspecified arthropathy, pelvic region a nd thigh Arthritis of hip Unspecified arthropathy, pelvic region a nd thigh documented in this encounter Care Teams Tag Machine Operator Relationship Specialty Start Date End Date Leticia Armendariz MD PCP - General Internal Medicine 03/17/15 Leticia Armendariz MD PCP - Assigned PCP 06/30/14 11/07/18 [facility] [address] [place] [address] Nahum Lemus MD 09/16/16 [place] [facility] 1185 [facility] [place] [id number] Karuna Ramirez MD MD Cardiology 09/16/16 Castro, Siatta Irina, DO Referring Physician Orthopedics 05/13/17 [facility] [address] [facility] [address] [place], [place] [address] Tito Almonte MD MD Orthopedics 05/13/17 [facility] [address] [place], [place] [phone] Leticia Armendariz MD Assigned PCP 06/30/14 01/06/19 [place] [address] [place] [id number] documented as of this encounter
--- OUTSIDE RECORDS SUMMARY | 2022-06-25 13:51 | XMS_ITS | Encounter Summary ---
:1965 Author Organization [place] Address [address] [place] [address] Care Team Providers Name Role Phone Leticia Armendariz MD Primary Care Provider Nahum Lemus MD Unavailable Karuna Ramirez MD Unavailable [phone] Karime Castro DO Unavailable Tito Almonte MD Unavailable Leticia Armendariz MD Unavailable Leticia Armendariz MD Unavailable Reason for Visit Reason Onset Date Comments Panel Management 06/09/2018 Encounter Details Date Type Department Care Team Description 06/09/2018 [facility] Leticia Armendariz, Panel Management [place] [address] [place] [address] [address] [place] [address] [place], [place] [address] (Wo rk) Social History Tobacco Use Types Packs/Day Years Used Date Smoking Tobacco: Every Day Cigarettes Smokeless Tobacco: Never Comments: 1 pack daily Alcohol Use Standard Drinks/Week Comments Yes 0 (1 standard drink = 0.6 oz pure alcoho l) 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 Date Recorded 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 Administer PHQ-9 and if score is 5 or more, send encounter to provider for next steps. 5 - 7 month window range: yes PHQ-9 SCORE 01/03/2018 Total Score 12 If PHQ-9 recheck is 5 or more, route to provider for next steps. Patient is due for: PHQ9 Hypertension Last three blood pressure readings: BP Readings from Last 3 Encounters: 01/03/18 120/72 11/09/17 119/71 07/13/17 159/87 Blood pressure: Passed HTN Guidelines: Age 18-59 BP range: Less than 140/90 Age 60-85 with Diabetes: Less than 140/90 Age 60-85 without Diabetes: less than 150/90 Composite cancer screening Chart review shows that this patient is due/due soon for the following None Summary: Patient is due/failing the following: PHQ9 Action needed: Sent pt my chart message with phq9 attached Type of outreach: Sent SCL message. Questions for provider review: None Joyce Oneill CMA Chart routed to no one . documented in this encounter Plan of Treatment Not on filedocumented as of this encounter Visit Diagnoses Not on filedocumented in this encounter Additional Health Concerns Assessment Noted Time PHQ-9 Depression Total Score: 0 06/10/2018 7:05 AM CDT documented as of this encounter Care Teams Customer Service Specialist Relationship Specialty Start Date End Date Leticia Armendariz MD PCP - General Internal Medicine 03/17/15 Leticia Armendariz MD PCP - Assigned PCP 06/30/14 11/07/[address] [address] Nahum Lemus MD 09/16/16 [place] [facility] 1185 [facility] [place] [address] Karuna Ramirez MD MD Cardiology 09/16/16 Karime Castro DO Referring Physician Orthopedics 05/13/17 [facility] [address] [facility] [address] [place] [address] Tito Almonte MD MD Orthopedics 05/13/17 [facility] [facility] [address] [place] [address] Leticia Armendariz MD Assigned PCP 06/30/14 01/06/19 [facility] [address] [place] [address] documented as of this encounter
--- OUTSIDE RECORDS SUMMARY | 2022-06-25 13:51 | XMS_ITS | Encounter Summary ---
:1965 Author Organization [place] Address [address] [place] [address] Care Team Providers Name Role Phone Leticia Armendariz MD Primary Care Provider Nahum Lemus MD Unavailable Karuna Ramirez MD Unavailable [phone] Karime Castro DO Unavailable Tito Almonte MD Unavailable Leticia Armendariz MD Unavailable Leticia Armendariz MD Unavailable Reason for Visit Reason Comments Medication Refill Encounter Details Date Type Department Care Team Description 08/29/2017 Telephone [facility] Leticia Armendariz, Medication Refill [place] [address] [place] [phone] [place], [place] [phone] (Wo rk) Social History Tobacco Use Types Packs/Day Years Used Date Smoking Tobacco: Every Day Cigarettes Smokeless Tobacco: Never Comments: 1 pack daily Alcohol Use Standard Drinks/Week Comments Yes 0 (1 standard drink = 0.6 oz pure alcoho l) 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 Date Recorded 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 Alejandro LINE OPERATOR [facility] Telephone Encounter - Leticia Armendariz MD - 08/30/2017 10:42 AM DESIGNER Script ready and in my outbox thanks [facility] Telephone Encounter - Ayaka Wilson, RN - 08/30/2017 6:42 AM CST Last refill-03/30/17-#30 x1 refill Last OV-03/30/17 [facility] documented in this encounter Plan of Treatment Not on filedocumented as of this encounter Visit Diagnoses Diagnosis Primary insomnia Persistent disorder of initiating or adrianne ntaining sleep documented in this encounter Care Teams Service Unit Operator Relationship Specialty Start Date End Date Leticia Armendariz MD PCP - General Internal Medicine 03/17/15 Leticia Armendariz MD PCP - Assigned PCP 06/30/14 11/07/18 [place] [address] [place] [address] Nahum Lemus MD 09/16/16 [place] [facility] 1185 [facility] [place] [phone] Karuna Ramirez MD MD Cardiology 09/16/16 Karime Castro DO Referring Physician Orthopedics 05/13/17 [facility] [address] [facility] [address] [place] [address] Tito Almonte MD MD Orthopedics 05/13/17 2450 [facility] [address] [place] [address] Leticia Armendariz MD Assigned PCP 06/30/14 01/06/19 [facility] [address] [place], [place] [address] documented as of this encounter
--- OUTSIDE RECORDS SUMMARY | 2022-06-25 13:51 | XMS_ITS | Encounter Summary ---
:1965 Author Organization [place] Address [address] [place] [address] Care Team Providers Name Role Phone Leticia rAmendariz MD Primary Care Provider Nahum Lemus MD Unavailable Karuna Ramirez MD Unavailable [phone] Karime Castro DO Unavailable Tito Almonte MD Unavailable Leticia Armendariz MD Unavailable Leticia Armendariz MD Unavailable Reason for Visit Reason Comments Medication Refill Encounter Details Date Type Department Care Team Description 04/09/2018 [facility] Leticia Armendariz, Medication Refill [place] [address] [place] [address] [place] [address] [place], [place] [address] (Wo rk) Social History Tobacco Use Types Packs/Day Years Used Date Smoking Tobacco: Every Day Cigarettes Smokeless Tobacco: Never Comments: 1 pack daily Alcohol Use Standard Drinks/Week Comments Yes 0 (1 standard drink = 0.6 oz pure alcoho l) 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 Date Recorded Male 08/13/2020 9:[address]ER documented as of this encounter Miscellaneous Notes Telephone Encounter - Ayaka Wilson RN - 04/10/2018 7:37 AM CDT Requested Prescriptions Pending Prescriptions Disp Refills ??? amLODIPine (NORVASC) 5 MG tablet [Pharmacy Med Name: AMLODIPINE BESYLATE 5 MG TAB] 90 tablet 1 Sig: TAKE 1 TABLET (5 MG) BY MOUTH DAILY Calcium Channel Blockers Protocol Passed 04/09/2018 2:15 AM Passed - Blood pressure under 140/90 [...] months Recent Labs Lab Test 01/09/18 0824 CR 0.87 documented in this encounter Plan of Treatment Not on filedocumented as of this encounter Visit Diagnoses Diagnosis Atrial fibrillation status post cardiove rsion documented in this encounter Additional Health Concerns Assessment Noted Time PHQ-9 Depression Total Score: 12 01/04/2018 7:37 AM CD T documented as of this encounter Care Teams Manager Cosmetics Relationship Specialty Start Date End Date Leticia Armendariz MD PCP - General Internal Medicine 03/17/15 Leticia Armendariz MD PCP - Assigned PCP 06/30/14 11/07/18 [facility] [address] [place] [address] Nahum Lemus MD 09/16/16 [place] [facility] 1185 [facility] [place] [phone] Karuna Ramirez MD MD Cardiology 09/16/16 Karime Castro DO Referring Physician Orthopedics 05/13/17 [facility] [address] [facility] [address] [place] [address] Tito Almonte MD MD Orthopedics 05/13/17 2450 [facility] [address] [place] [address] Leticia Armendariz MD Assigned PCP 06/30/14 01/06/[address] [phone] documented as of this encounter
--- OUTSIDE RECORDS SUMMARY | 2022-06-25 13:51 | XMS_ITS | Encounter Summary ---
:1965 Author Organization [place] Address [address] [place] [address] Care Team Providers Name Role Phone Leticia Armendariz MD Primary Care Provider Nahum Lemus MD Unavailable Karuna Ramirez MD Unavailable [phone] Leticia Armendariz MD Unavailable Leticia Armendariz MD Unavailable Reason for Referral Consultation - Closed Specialty Diagnoses / Procedures Referred By Contact Refer red To Contact Orthopedics and Diagnoses Primary osteoarthritis of both hips Femoral acetabular impingement Karime Castro [facility] and [facility] [place], operated by [facility] [address] [facility] [address] [facility] [address] [place] [phone] Fax: Referral ID Status Reason Start Date Expiration Date Visits Requ ested Visits Authorized [id number] Closed 05/12/2017 05/12/2018 1 1 Reason for Visit Reason Comments RECHECK bilateral hip pain Encounter Details Date Type Department Care Team Description 05/12/2017 Office Visit [facility] Karime Castro Primary osteoarthritis of both hips (Primary Dx); Sports Medicine DO Irina Femoral acetabular impingement Clinic [facility] [place] [address] [place] [facility] [place] [address] [place] [address] [phone] (Wo rk) Social History Tobacco Use Types Packs/Day Years Used Date Smoking Tobacco: Every Day Cigarettes Smokeless Tobacco: Never Comments: 1 pack daily Alcohol Use Standard Drinks/Week Comments Yes 0 (1 standard drink = 0.6 oz pure alcoho l) 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 Date Recorded 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 Please find below your visit diagnosis and the plan going forward. 1. Primary osteoarthritis of both hips Reviewed MRI - mild/moderate right hip arthritis with impingement. In regards to left hip, loose body and area of bone below the cartilage that appears to be AVN Recommend referral to Dr. Tito Almonte, [facility], Scheduling number: [phone] Follow up as needed. Call direct clinic number [[phone]] at any time with questions or concerns. Karime Castro DO CAQSM [facility] Website: [email or web address] Twitter: [email or web address] documented in this encounter Progress Notes Karime Castro DO - 05/12/2017 9:20 AM CDT ASSESSMENT & PLAN ICD-10-CM 1. Primary osteoarthritis of both hips M16.0 ORTHO BEN DAY ARTIST REFERRAL 2. Femoral acetabular impingement M25.859 ORTHO BEN DAY ARTIST REFERRAL Reviewed MRI - mild/moderate right hip arthritis with impingement. Left hip, loose body and questionable AVN Recommend referral to Dr. Tito Almonte [facility], Scheduling number: [phone] Follow up as needed. Call direct clinic number [[phone]] at any time with questions or concerns. ----- SUBJECTIVE: Feng Perez is a 52 year old male who is seen in follow-up for Primary osteoarthritis of both hips (primary encounter diagnosis). They were last seen 04/28/2017. They indicate that their pain level is 4/10. They have tried previous imaging (MRI see below). He ishere for MRI results. He reports some feeling of instability in the hips. Patient's past medical, surgical, social, and family histories were reviewed today and no changes are noted. REVIEW OF SYSTEMS: Constitutional: NEGATIVE for fever, chills, change in weight Skin: NEGATIVE for worrisome rashes, moles or lesions GI/: NEGATIVE for bowel or bladder changes Neuro: NEGATIVE for weakness, dizziness or paresthesias OBJECTIVE: Ht 5' 10 (1.778 m) Wt 200 lb (90.7 kg) BMI 28.7 kg/m2 General: healthy, alert and in no distress HEENT: no scleral icterus or conjunctival erythema Skin: no suspicious lesions or rash. No jaundice. CV: regular rhythm by palpation, no pedal edema Resp: normal respiratory effort without conversational dyspnea Psych: normal mood and affect Gait: appropriate coordination and balance MSK: Deferred Independent visualization of the below image: MR HIP LEFT WITHOUT CONTRAST 05/02/2017 10:22 AM ?? HISTORY: Several years of bilateral hip pain. ?? COMPARISON: A CT of the abdomen and pelvis which included the hips on 04/20/2017. That examination demonstrated a dense calcification or ossification in the medial aspect of the left hip joint. ? IMPRESSION: There is a 1.0 cm calcified body within the medial aspect of the left hip joint corresponding to the abnormality on the recent CT. This likely represents a loose body, although the origin is not identified. ?? SARAH BRAVO MD Patient's conditions were thoroughly discussed during today's visit with greater than 50% of the visit spent counseling the patient with total time spent [id number] with the patient being 20 minutes. Karime Castro DO [facility] documented in this encounter Nursing Notes Dexter Miller - 05/12/2017 9:20 AM CDT Chief Complaint Patient presents with ??? RECHECK bilateral hip pain Initial BP 132/86 Ht 5' 10 (1.778 m) Wt 200 lb (90.7 kg) BMI 28.7 kg/m2 Estimated body mass index is 28.7 kg/(m^2) as calculated from the following: Height as of this encounter: 5' 10 (1.778 m). Weight as of this encounter: 200 lb (90.7 kg). Medication Reconciliation: complete Dexter Miller ATC documented in this encounter Plan of Treatment Not on filedocumented as of this encounter Visit Diagnoses Diagnosis Primary osteoarthritis of both hips - Pr imary Primary localized osteoarthrosis, pelvic region and thigh Femoral acetabular impingement Enthesopathy of hip region documented in this encounter Care Teams Shellfish Meat Separator Operator Relationship Specialty Start Date End Date Leticia Armendariz MD PCP - General Internal Medicine 03/17/15 Leticia Armendariz MD PCP - Assigned PCP 06/30/14 [facility]07[facility] [address] [place] [address] Nahum Lemus MD 09/16/16 [place] [facility] [address] [facility] [place] [id number] Karuna Ramirez MD MD Cardiology 09/16/16 Leticia Armendariz MD Assigned PCP 06/30/14 01/06/[address] [address] documented as of this encounter
--- OUTSIDE RECORDS SUMMARY | 2022-06-25 13:51 | XMS_ITS | Encounter Summary ---
:1965 Author Organization [place] Address [address] [place] [address] Care Team Providers Name Role Phone Leticia Armendariz MD Primary Care Provider Nahum Lemus MD Unavailable Karuna Ramirez MD Unavailable [phone] Karime Castro DO Unavailable Tito Almonte MD Unavailable Leticia Armendariz MD Unavailable Leticia Armendariz MD Unavailable Reason for Visit Reason Comments Medication Refill [facility] Encounter Details Date Type Department Care Team Description 10/13/2017 Refill [facility] Leticia Armendariz Medication Refill Demarco Bender MD ([facility] [address] [place] [facility] [address] [place] [phone] [phone] Social History Tobacco Use Types Packs/Day Years Used Date Smoking Tobacco: Every Day Cigarettes Smokeless Tobacco: Never Comments: 1 pack daily Alcohol Use Standard Drinks/Week Comments Yes 0 (1 standard drink = 0.6 oz pure alcoho l) 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 Date Recorded 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 amLODIPine (NORVASC) 5 MG tablet [Pharmacy Med Name: AMLODIPINE BESYLATE 5 MG TAB] 90 tablet 1 Sig: TAKE 1 TABLET (5 MG) BY MOUTH DAILY Calcium Channel Blockers Protocol Failed 10/13/2017 11:11 PM Failed - Blood pressure under 140/90 BP Readings from Last 3 Encounters: 07/13/17 159/87 05/12/17 132/86 04/28/17 128/86 Failed - Normal serum creatinine on file in past 12 months Recent Labs Lab Test 08/02/16 1227 CR 0.89 Passed - Recent or future visit with authorizing provider Patient had office visit in the last year or has a visit in the next 30 days with authorizing provider. See Patient Info tab in inbasket, or Choose Columns in Meds & Orders section of the refill encounter. Last OV: 03/30/17 Passed - Patient is age 18 or older Routing refill request to provider for review/approval because: Labs not current: Cr BP out of SO parameters Please advise, thanks. TURNER documented in this encounter Plan of Treatment Not on filedocumented as of this encounter Visit Diagnoses Diagnosis Atrial fibrillation status post cardiove rsion documented in this encounter Care Teams Laundry Tech Relationship Specialty Start Date End Date Leticia Armendariz MD PCP - General Internal Medicine 03/17/15 Leticia Armendariz MD PCP - Assigned PCP 06/30/14 11/07/[address] [facility] [address] [place] [address] Nahum Lemus MD 09/16/16 [place] [facility] [address] [facility] [place] [id number] Karuna Ramirez MD MD Cardiology 09/16/16 Karime Castro DO Referring Physician Orthopedics 05/13/17 [facility] [address] [facility] [address] [place] [address] Tito Almonte MD MD Orthopedics 05/13/17 [address] [facility] [address] [place] [address] Leticia Armendariz MD Assigned PCP 06/30/14 01/06/[address] [facility] [address] [place] [phone] documented as of this encounter
--- OUTSIDE RECORDS SUMMARY | 2022-06-25 13:51 | XMS_ITS | Encounter Summary ---
:1965 Author Organization [place] Address [address] [place] [address] Care Team Providers Name Role Phone Leticia Armendariz MD Primary Care Provider Nahum Lemus MD Unavailable Karuna Ramirez MD Unavailable [phone] Kairme Castro DO Unavailable Tito Almonte MD Unavailable Leticia Armendariz MD Unavailable Leticia Armendariz MD Unavailable Reason for Visit Reason Onset Date Comments Refill Request 04/28/2018 fenofibrate Encounter Details Date Type Department Care Team Description 04/28/2018 Refill [facility] Leticia Armendariz Refill Request Demarco Bender MD (fenofibrate) [address] Hobbs [facility] [address] [place] [phone] [phone] Social History Tobacco Use Types Packs/Day Years Used Date Smoking Tobacco: Every Day Cigarettes Smokeless Tobacco: Never Comments: 1 pack daily Alcohol Use Standard Drinks/Week Comments Yes 0 (1 standard drink = 0.6 oz pure alcoho l) 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 Date Recorded 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 fenofibrate 48 MG tablet Last Written Prescription Date: 01/20/18 Last Fill Quantity: 90, # refills: 0 Last office visit: 01/03/2018 with prescribing provider: Marcello Future Office Visit: 90 tablet 0 Sig: Take 1 tablet (48 mg) by mouth daily Fibrates Passed 04/28/2018 11:06 AM Passed - Lipid panel on file [...] - Patient is age 18 or older Per 04/26/18 result note: Notes Recorded by Leticia Armendariz MD on 04/27/2018 at 9:57 PM The triglycerides have improved, but are still elevated. Recommend taking 2 tablets per day of fenofibrate. The liver function test (ALT) is within normal limits. Prescription updated to take 2 tablets daily. Prescription approved per [facility] Refill Protocol. Telephone Encounter - Marcio Sonia Nuñez - 04/28/2018 10:56 AM CDT Reason for Call: Medication or medication refill: Do you use a [facility]? Name of the pharmacy and phone number for the current request: [facility] Name of the medication requested: Fenofibrate 48 MG tablets 2 times per day ( Other request: completely out of meds. Can we leave a detailed message on this number? YES Phone number patient can be reached at: Cell number on file: Telephone Information: Best Time: any Call taken on 04/28/2018 at 10:56 AM by Sonia Buckley documented in this encounter Plan of Treatment Not on filedocumented as of this encounter Visit Diagnoses Diagnosis Elevated triglycerides with high cholest [place] Mixed hyperlipidemia documented in this encounter Additional Health Concerns Assessment Noted Time PHQ-9 Depression Total Score: 12 01/04/2018 7:37 AM CD T documented as of this encounter Care Teams Timber Sizer Operator Relationship Specialty Start Date End Date Leticia Armendariz MD PCP - General Internal Medicine 03/17/15 Leticia Armendariz MD PCP - Assigned PCP 06/30/14 11/07/18 [facility] [address] [place] [address] Nahum Lemus MD 09/16/16 [place] [facility] [address] [facility] [place] [address] Karuna Ramirez MD MD Cardiology 09/16/16 Karime Castro DO Referring Physician Orthopedics 05/13/17 [facility] [address] [facility] [address] [place], [place] [address] Tito Almonte MD MD Orthopedics 05/13/[address] [place], [place] [address] Leticia Armendariz MD Assigned PCP 06/30/14 01/06/19 [facility] [address] [place] [address] documented as of this encounter
--- OUTSIDE RECORDS SUMMARY | 2022-06-25 13:51 | XMS_ITS | Encounter Summary ---
:1965 Author Organization [place] Address [address] [place] [address] Care Team Providers Name Role Phone Leticia Armendariz MD Primary Care Provider Nahum Lemus MD Unavailable Karuna Ramirez MD Unavailable [phone] Karime Castro DO Unavailable Tito Almonte MD Unavailable Leticia Armendariz MD Unavailable Leticia Armendariz MD Unavailable Reason for Visit Reason Onset Date Comments Refill Request 04/25/2018 Encounter Details Date Type Department Care Team Description 04/25/2018 MyC Refill [facility] Leticia Armendariz, Refill Request Demarco BOURGEOIS [address] [place] [address] [address] [place] [address] [place], [place] [address] (Wo rk) Social History Tobacco Use Types Packs/Day Years Used Date Smoking Tobacco: Every Day Cigarettes Smokeless Tobacco: Never Comments: 1 pack daily Alcohol Use Standard Drinks/Week Comments Yes 0 (1 standard drink = 0.6 oz pure alcoho l) 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 Date Recorded 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 Plan of Treatment Not on filedocumented as of this encounter Visit Diagnoses Diagnosis Primary insomnia Persistent disorder of initiating or adrianne ntaining sleep documented in this encounter Additional Health Concerns Assessment Noted Time PHQ-9 Depression Total Score: 12 01/04/2018 7:37 AM CD T documented as of this encounter Care Teams Appliance Installer Relationship Specialty Start Date End Date Leticia Armendariz MD PCP - General Internal Medicine 03/17/15 Leticia Armendariz MD PCP - Assigned PCP 06/30/14 11/07/18 [email or web address] [address] [place] [address] Nahum Lemus MD 09/16/16 [place] [facility] [address] [facility] [place] [id number] Karuna Ramirez MD MD Cardiology 09/16/16 Karime Castro DO Referring Physician Orthopedics 05/13/17 [facility] [address] [facility] [address] [place], [place] [phone] Tito Almonte MD MD Orthopedics 05/13/[address] [place], [place] [address] Leticia Armendariz MD Assigned PCP 06/30/14 01/06/19 [email or web address] [address] [place] [address] documented as of this encounter
--- OUTSIDE RECORDS SUMMARY | 2022-06-25 13:51 | XMS_ITS | Encounter Summary ---
:1965 Author Organization [place] Address [address] [facility] [place] [address] Care Team Providers Name Role Phone Leticia Armendariz MD Primary Care Provider Nahum Lemus MD Unavailable Karuna Ramirez MD Unavailable [phone] Karime Castro DO Unavailable Tito Almonte MD Unavailable Leticia Armendariz MD Unavailable Leticia Armendariz MD Unavailable Reason for Referral Diagnostic Imaging XR - Closed Specialty Diagnoses / Procedures Referred By Contact Refer red To Contact Radiology. Diagnoses Arthritis of hip Tito Almonte MD Xray Rscc Procedures XR Joint Injection Major Bilateral [address] [facility] [address] [address] [place], [place] [address] [address] [place] [address] Phone: Fax: Referral ID Status Reason Start Date Expiration Date Visits Requ ested Visits Authorized [id number] Closed 11/07/2017 10/27/2018 1 1 ECT CONSTRUCTION ASSISTANT MANAGER Reason for Visit Diagnostic Imaging XR - Closed Specialty Diagnoses / Procedures Referred By Contact Refer red To Contact Radiology. Diagnoses Arthritis of hip Tito Almonte MD Rh Xray Rscc Procedures XR Joint Injection Major Bilateral [address] [address] [place], [place] [address] [address] [place] [address] Phone: Fax: Referral ID Status Reason Start Date Expiration Date Visits Requ ested Visits Authorized [id number] Closed 11/07/2017 10/27/2018 1 1 Encounter Details Date Type Department Care Team Description 11/09/2017 Hospital Encounter [facility] Tito Almonte , Arthritis of hip [facility] [address] [facility] [address] [place] [address] Social History Tobacco Use Types Packs/Day Years Used Date Smoking Tobacco: Every Day Cigarettes Smokeless Tobacco: Never Comments: 1 pack daily Alcohol Use Standard Drinks/Week Comments Yes 0 (1 standard drink = 0.6 oz pure alcoho l) 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 Date Recorded 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 documented as of this encounter Last Filed Vital Signs Vital Sign Reading Time Taken Comments Blood Pressure 119/71 11/09/2017 3:11 PM PROJECT CONSTRUCTION ASSISTANT MANAGER Pulse 92 11/09/2017 3:11 PM PROJECT CONSTRUCTION ASSISTANT MANAGER Temperature - - Respiratory Rate - - [...] TAKE 1 TABLET (5 90 tablet 1 10/0604/09/2018 tabletIndications: Atrial MG) BY MOUTH DAILY fibrillation status post cardioversion (H) aspirin 81 MG EC Take 2 tablets 30 tablet 0 08/20/2016 050 09/2017 tabletIndications: Chest (162 mg) by mouth pain, unspecified type, daily Atrial fibrillation status post cardioversion (H) dicyclomine (BENTYL) 10 TAKE 1 CAPSULE BY 240 capsule 3 03/0607/24/2018 MG capsule ORAL ROUTE 2-4 TIMES EVERY DAY losartan (COZAAR) 50 MG TAKE 1 TABLET (50 90 tablet 2 10/0606/28/2018 tabletIndications: Atrial MG) BY MOUTH DAILY fibrillation status post cardioversion (H) zolpidem (AMBIEN) 10 MG TAKE 1 TABLET BY 30 tablet 1 201612/24/2017 tabletIndications: MOUTH AT BEDTIME Primary insomnia NEEDED FOR SLEEP documented as of this encounter Progress Notes Jarrell Vincent PA-C - 11/09/2017 4:07 PM CST RADIOLOGY PROCEDURE NOTE Patient name: Feng Perez : 1965 Pre-procedure diagnosis: Bilateral hip pain Post-procedure diagnosis: Same Procedure Date/Time: November 09, 2017 4:07 PM Procedure: BIlateral hip steroid injections Estimated blood loss: None Specimen(s) collected with description: none The patient tolerated the procedure well with no immediate complications. Significant findings:none See imaging dictation for procedural details. Provider name: Jarrell Vincent Mortar Carrier(s):None ECT CONSTRUCTION ASSISTANT MANAGER Santi Caro RN - 11/09/2017 3:50 PM CST Pt tolerated ortho procedure well, post procedure pain level improved from a 5 to a 2 . There were no complications during procedure. Pt verbalized understanding of written and verbal instructions and left department in stable and satisfactory condition with . There is no evidence of bleeding upon discharge. ECT CONSTRUCTION ASSISTANT MANAGER documented in this encounter Plan of Treatment Not on filedocumented as of this encounter Procedures Procedure Name Priority Date/Time Associated Diagnosis Comme nts XR JOINT INJECTION Routine 11/09/2017 3:41 PM Arthritis of hip Results for this MAJOR BILATERAL PROJECT CONSTRUCTION ASSISTANT MANAGER procedure ar e in the results section. documented in this encounter Results XR Joint Injection Major Bilateral (11/09/2017 3:41 PM PROJECT CONSTRUCTION ASSISTANT MANAGER) Anatomical Region Laterality Modality Bilateral Radio Fluoroscopy Specimen (Source) Anatomical Location Collection Method / Collectio n Time Received Time / Laterality Volume Impressions 11/09/2017 4:52 PM PROJECT CONSTRUCTION ASSISTANT MANAGER IMPRESSION: ??Technically successful ??bilateral hip steroid/anesthetic injection with partial initial pain reli ef. ??Long-term results pending. JARRELL VINCENT PA-C Narrative 11/09/2017 4:52 PM PROJECT CONSTRUCTION ASSISTANT MANAGER XR JOINT INJECTION MAJOR BILATERAL ? 11/09/2017 [...] encounter Visit Diagnoses Diagnosis Arthritis of hip Unspecified arthropathy, pelvic region a nd thigh documented in this encounter Administered Medications Inactive Administered Medications - up to 3 most recent administrations Medication Order MAR Action Action Date Dose Rate Site BUPivacaine (MARCAINE) Given by Other 11/09/2017 3:27 PM 150 mg injection 0.5% (PF) Clinician PROJECT CONSTRUCTION ASSISTANT MANAGER 200 mg (40 mL), INTRA-ARTICULAR, ONCE, On Tue11/09/17 at 1530, For 1 dose bupivacaine (PF) (MARCAINE) 0.5 % inject ion Starting on Tue11/09/17 at 1515, For 1 do Vania godfrey Robin : cabinet override iopamidol (ISOVUE-M 200) Given by Other 11/09/2017 3:30 PM PROJECT CONSTRUCTION ASSISTANT MANAGER 3 mLs solution 10 mL Clinician 10 mL, INTRA-ARTICULAR, ONCE, On Tue11/09/17 at 1530, For 1 dose lidocaine (PF) (XYLOCAINE) 1 Given by Other Clinician 11/09/2017 3:25 PM PROJECT CONSTRUCTION ASSISTANT MANAGER 5 mLs % injection 5 mL 5 mL, Subcutaneous, ONCE, On Tue11/09/17 at 1530, For 1 dose lidocaine 1 % injection Starting on Tue11/09/17 at 1515, For 1 do Vania godfrey Robin : cabinet override triamcinolone acetonide (KENALOG-40) 40 MG/ML injection Starting on Tue11/09/17 at 1515, For 1 do Vania godfrey Robin : cabinet override triamcinolone acetonide Given by Other 11/09/2017 3:26 PM PROJECT CONSTRUCTION ASSISTANT MANAGER 80 mg (KENALOG-40) injection 80 mg Clinician 80 mg, INTRA-ARTICULAR, ONCE, On Tue11/09/17 at 1530, For 1 dose documented in this encounter Care Teams Developer Trading Systems Relationship Specialty Start Date End Date Leticia Armendariz MD PCP - General Internal Medicine 03/17/15 Leticia Armendariz MD PCP - Assigned PCP 06/30/14 11/07/18 [facility] [address] [place] [address] Nahum Lemus MD 09/16/16 [place] [facility] [address] [facility] [place] [id number] Karuna Ramirez MD MD Cardiology 09/16/16 Karime Castro DO Referring Physician Orthopedics 05/13/17 [facility] [address] [facility] [address] [place], [place] [address] Tito Almonte MD MD Orthopedics 05/13/17 [address] [facility] [address] [place], [place] [address] Leticia Armendariz MD Assigned PCP 06/30/14 01/06/19 [facility] [address] [place] [id number] documented as of this encounter
--- OUTSIDE RECORDS SUMMARY | 2022-06-25 13:51 | XMS_ITS | Encounter Summary ---
:1965 Author Organization [facility] Address [address] [place] [address] Care Team Providers Name Role Phone Leticia Armendariz MD Primary Care Provider Nahum Lemus MD Unavailable Karuna Ramirez MD Unavailable [phone] Karime Castro DO Unavailable Tito Almonte MD Unavailable Leticia Armendariz MD Unavailable Leticia Armendariz MD Unavailable Reason for Visit Reason Onset Date Comments Refill Request 06/20/2018 zolpidem Encounter Details Date Type Department Care Team Description 06/20/2018 My[facility] Refill [facility] Leticia Armendariz Refill Request Clinic Demarco Bender MD (zolpidem) [address] [facility] [address] [phone] Social History Tobacco Use Types Packs/Day Years Used Date Smoking Tobacco: Every Day Cigarettes Smokeless Tobacco: Never Comments: 1 pack daily Alcohol Use Standard Drinks/Week Comments Yes 0 (1 standard drink = 0.6 oz pure alcoho l) 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 Date Recorded 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 Telephone Encounter - Mary Pan RN - 06/21/2018 12:55 PM CDT Requested Prescriptions Pending Prescriptions Disp Refills ??? zolpidem (AMBIEN) 10 MG tablet Last Written Prescription Date: 04/25/18 Last Fill Quantity: 30, # refills: 1 Last office visit: 01/03/2018 with prescribing provider: Dr. Armendariz Future Office Visit: 30 tablet 1 Sig: TAKE 1 TABLET BY MOUTH AT BEDTIME NEEDED There is no refill protocol information for this order Routing refill request to provider for review/approval because: Drug not on the [facility] refill protocol Telephone Encounter - Mary Pan RN - 06/21/2018 12:54 PM CDT Message from [employer]: Original authorizing provider: MD Feng Gandhi would like a refill of the following medications: zolpidem (AMBIEN) 10 MG tablet [Leticia Armendariz MD] Preferred pharmacy: [place] [address] [place] [address] Comment: documented in this encounter Plan of Treatment Not on filedocumented as of this encounter Visit Diagnoses Diagnosis Primary insomnia Persistent disorder of initiating or adrianne ntaining sleep documented in this encounter Additional Health Concerns Assessment Noted Time PHQ-9 Depression Total Score: 0 06/10/2018 7:05 AM CDT documented as of this encounter Care Teams Counter Sales Representative Relationship Specialty Start Date End Date Leticia Armendariz MD PCP - General Internal Medicine 03/17/15 Leticia Armendariz MD PCP - Assigned PCP 06/30/14 11/07/[address] [place] [address] Nahum Lemus MD 09/16/16 [facility] [address] [place] [address] Karuna Ramirez MD MD Cardiology 09/16/16 Karime Castro DO Referring Physician Orthopedics 05/13/17 [facility] [address] [facility] [address] [place], [place] [id number] Tito Almonte MD MD Orthopedics 05/13/17 [address] [place], [place] [id number] Leticia Armendariz MD Assigned PCP 06/30/14 01/06/19 [email or web address] [address] [place] [address] documented as of this encounter
--- OUTSIDE RECORDS SUMMARY | 2022-06-25 13:51 | XMS_ITS | Encounter Summary ---
:1965 Author Organization [facility] Address [address] [place] [address] Care Team Providers Name Role Phone Leticia Armendariz MD Primary Care Provider Nahum Lemus MD Unavailable Karuna Ramirez MD Unavailable [phone] Karime Castro DO Unavailable Tito Almonte MD Unavailable Leticia Armendariz MD Unavailable Leticia Armendariz MD Unavailable Reason for Visit Reason Comments Medication Refill Encounter Details Date Type Department Care Team Description 04/24/2018 [facility] Leticia Armendariz, Medication Refill [facility] [address] [place] [address] [address] [place] [address] [place], [place] [address] (Wo rk) Social History Tobacco Use Types Packs/Day Years Used Date Smoking Tobacco: Every Day Cigarettes Smokeless Tobacco: Never Comments: 1 pack daily Alcohol Use Standard Drinks/Week Comments Yes 0 (1 standard drink = 0.6 oz pure alcoho l) 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 Date Recorded 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 Miscellaneous Notes Telephone Encounter - Ayaka Wilson RN - 04/25/2018 7:04 AM CDT Last Written Prescription Date: 12/26/17 Last Fill Quantity: 30, # refills: 1 Last office visit: 01/03/2018 with prescribing provider: documented in this encounter Plan of Treatment Not on filedocumented as of this encounter Visit Diagnoses Diagnosis Primary insomnia Persistent disorder of initiating or adrianne ntaining sleep documented in this encounter Additional Health Concerns Assessment Noted Time PHQ-9 Depression Total Score: 12 01/04/2018 7:37 AM CD T documented as of this encounter Care Teams Grease Rack Worker Relationship Specialty Start Date End Date Leticia Armendariz MD PCP - General Internal Medicine 03/17/15 Leticia Armendariz MD PCP - Assigned PCP 06/30/14 [facility]/07[facility] [address] [id number] Nahum Lemus MD 09/16/16 [facility] [address] [facility] [place] [address] Karuna Ramirez MD MD Cardiology 09/16/16 Karime Castro DO Referring Physician Orthopedics 05/13/17 [facility] [address] [facility] [address] [place], [place] [phone] Tito Almonte MD MD Orthopedics 05/13/17 [address] [facility] [address] [place], [place] [phone] Leitcia Armendariz MD Assigned PCP 06/30/14 01/06/[address] [address] documented as of this encounter
--- OUTSIDE RECORDS SUMMARY | 2022-06-25 13:51 | XMS_ITS | Encounter Summary ---
:1965 Author Organization [place] Address [address] [place] [address] Care Team Providers Name Role Phone Leticia Armendariz MD Primary Care Provider Nahum Lemus MD Unavailable Karuna Ramirez MD Unavailable [phone] Karime Castro DO Unavailable Tito Almonte MD Unavailable Leticia Armendariz MD Unavailable Leticia Armendariz MD Unavailable Reason for Referral Consultation - Closed Specialty Diagnoses / Procedures Referred By Contact Refer red To Contact Diagnoses Dysuria Leticia Armendariz MD [facility] (aka [facility] Urologic Physician) [address] [place] [address] [address] [place] [address] [place] [address] Phone: [phone] Referral ID Status Reason Start Date Expiration Date Visits Requ ested Visits Authorized [id number] Closed 01/03/2018 01/03/2019 1 1 Reason for Visit Reason Comments Physical pt noting fatigue, low energ y, some aches/pain, non fasting Encounter Details Date Type Department Care Team Description 01/03/[address] 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 (H) (Work) Social History Tobacco Use Types Packs/Day Years Used Date Smoking Tobacco: Every Day Cigarettes Smokeless Tobacco: Never Comments: 1 pack daily Alcohol Use Standard Drinks/Week Comments Yes 0 (1 standard drink = 0.6 oz pure alcoho l) 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 Date Recorded Male 08/13/2020 9:06 AM [employer] documented as of this encounter Last Filed Vital Signs Vital Sign Reading Time Taken Comments Blood Pressure 120/72 01/03/2018 1:40 PM CDT Pulse 98 01/03/2018 1:40 PM CDT Temperature 37.1 ??C (98.8 ??F) 01/03/2018 1:40 PM CDT Respiratory Rate - - Oxygen Saturation 97% 01/03/2018 1:40 PM CDT Inhaled Oxygen Concentration - - Weight 94.8 kg (209 lb) 01/03/2018 1:40 PM CDT Height 177.8 cm (5' 10) 01/03/2018 1:40 PM CDT Body Mass Index 29.99 01/03/2018 1:40 PM CDT documented in this encounter Patient Instructions Patient InstructionsDuLeticia chou MD - 01/03/2018 1:40 PM CDT Lab only appt See urology for painful urination and intermittent pain documented in this encounter Progress Notes Leticia Armendariz MD - 01/03/2018 1:40 PM CDT SUBJECTIVE: CC: Feng Perez is an 52 year old male who presents for preventative health visit. Physical Annual: Getting at least 3 servings of Calcium per day:: Yes Bi-annual eye exam:: Yes Dental care twice a year:: NO Sleep apnea or symptoms of sleep apnea:: None Diet:: Regular (no restrictions) Frequency of exercise:: None Taking medications regularly:: Yes Medication side effects:: None Additional concerns today:: YES (fatigue, low energy) Today's PHQ-2 Score: PHQ-2 (??1998 Pfizer) 05/19/2016 Q1: Little interest or pleasure in doing things 0 Q2: Feeling down, depressed or hopeless 0 PHQ-2 Score 0 Abuse: Current or Past(Physical, Sexual or Emotional)- No Do you feel safe in your environment - Yes Social History Substance Use Topics ??? Smoking status: Current Every Day Smoker Types: Cigarettes ??? Smokeless tobacco: Never Used Comment: 1 pack daily ??? Alcohol use 0.0 oz/week 0 Standard drinks or equivalent per week Last PSA: No results found for: PSA Reviewed orders with patient. Reviewed health maintenance and updated orders accordingly - Yes Labs reviewed in [facility] Reviewed and updated as needed this visit by clinical staff Tobacco Allergies Meds Med Hx Surg Hx Fam Hx Soc Hx Reviewed and updated as needed this visit by Provider Review of Systems C: NEGATIVE for fever, chills, change in weight I: NEGATIVE for worrisome rashes, moles or lesions E: NEGATIVE for vision changes or irritation ENT: NEGATIVE for ear, mouth and throat problems R: NEGATIVE for significant cough or SOB CV: NEGATIVE for chest pain, palpitations or peripheral edema GI: NEGATIVE for nausea, abdominal pain, heartburn, or change in bowel habits male: negative for dysuria, hematuria, decreased urinary stream, erectile dysfunction, urethral discharge M: NEGATIVE for significant arthralgias or myalgia N: NEGATIVE for weakness, dizziness or paresthesias P: POS depression; sleeping 8 hours per night with ambien OBJECTIVE: BP 120/72 (BP Location: Left arm, Cuff Size: Adult Large) Pulse 98 Temp 98.8 ??F (37.1 ??C) (Oral) Ht 5' 10 (1.778 m) Wt 209 lb (94.8 kg) SpO2 97% BMI 29.99 kg/m2 Physical Exam GENERAL: healthy, alert and no distress EYES: Eyes grossly normal to inspection, PERRL and conjunctivae and sclerae normal HENT: ear canals and TM's normal, nose and mouth without ulcers or lesions NECK: no adenopathy, no asymmetry, masses, or scars and thyroid normal to palpation RESP: lungs clear to auscultation - no rales, rhonchi or wheezes CV: regular rate and rhythm, normal S1 S2, no S3 or S4, no murmur, click or rub, no peripheral edemaand peripheral pulses strong ABDOMEN: soft, nontender, no hepatosplenomegaly, no masses and bowel sounds normal : no lumps or lesions appreciated MS: no gross musculoskeletal defects noted, no edema SKIN: no suspicious lesions or rashes NEURO: Normal strength and tone, mentation intact and speech normal PSYCH: mentation appears normal, affect normal/bright ASSESSMENT/PLAN: ICD-10-CM 1. Encounter for routine adult health examination without abnormal findings Z00.00 Lipid panel reflex to direct LDL Fasting CBC with platelets differential TSH with free T4 reflex Comprehensive metabolic panel Testosterone Free and Total PSA, screen UA with Microscopic reflex to Culture 2. Essential hypertension I10 3. Atrial fibrillation status post cardioversion (H) I48.91 4. Other fatigue R53.83 TSH with free T4 reflex Vitamin D Deficiency Testosterone Free and Total 5. Dysuria R30.0 UROLOGY ADULT REFERRAL UA with Microscopic reflex to Culture CANCELED: UA with Microscopic reflex to Culture Fatigue. Counseled on exercising again. Patient does have an elevated PHQ 9 score of 10. Offered counseling and medications. Declined both at this time. COUNSELING: Reviewed preventive health counseling, as reflected in patient instructions reports that he has been smoking Cigarettes. He has never used smokeless tobacco. Estimated body mass index is 29.99 kg/(m^2) as calculated from the following: Height as of this encounter: 5' 10 (1.778 m). Weight as of this encounter: 209 lb (94.8 kg). Counseling Resources: ATP IV Guidelines Pooled Cohorts Equation Calculator FRAX Risk Assessment ICSI Preventive Guidelines Dietary Guidelines for Americans, 2010 USDA's MyPlate ASA Prophylaxis Lung CA Screening Leticia Armendariz MD [facility] documented in this encounter Nursing Notes Joyce Holliday, DIRECTOR OF STRATEGIC ALLIANCES - 01/03/2018 1:40 PM CDT Chief Complaint Patient presents with ??? Physical pt noting fatigue, low energy, some aches/pain, non fasting Initial BP 120/72 (BP Location: Left arm, Cuff Size: Adult Large) Pulse 98 Temp 98.8 ??F (37.1 ??C) (Oral) Ht 5' 10 (1.778 m) Wt 209 lb (94.8 kg) SpO2 97% BMI 29.99 kg/m2 Estimated body mass index is 29.99 kg/(m^2) as calculated from the following: Height as of this encounter: 5' 10 (1.778 m). Weight as of this encounter: 209 lb (94.8 kg). Medication Reconciliation: complete Joyce Oneill CMA documented in this encounter Plan of Treatment Scheduled Referrals Name Type Priority Associated Diagnoses [facility] Referral Routine Dysuria Order ed: 01/03/2018 documented as of this encounter Results UA with Microscopic reflex to Culture (01/09/2018 8:25 AM CDT) [facility] Method Time Signature Color Urine Yellow 01/09/2018 [place] 9:04 AM CDT [facility] Appearance Urine Clear 01/09/2018 [place] 9:04 AM CDT [facility] Glucose Urine Negative NEG^Negat 01/09/2018 [place] audra mg/dL 9:04 AM CDT [facility] Bilirubin Urine Negative NEG^Negat 01/09/2018 [place] audra 9:04 AM CDT [facility] Ketones Urine Negative NEG^Negat 01/09/2018 [place] audra mg/dL 9:04 AM CDT [facility] Specific [place] 1.010 1.003 - 01/09/2018 [place] Urine 1.035 9:04 AM CDT [facility] pH Urine 6.5 5.0 - 7.0 01/09/2018 [place] pH 9:04 AM CDT [facility] Protein Albumin Negative NEG^Negat 01/09/2018 [place] Urine audra mg/dL 9:04 AM CDT [facility] Urobilinogen 0.2 0.2 - 1.0 01/09/2018 [place] Urine EU/dL 9:04 AM CDT [facility] Nitrite Urine Negative NEG^Negat 01/09/2018 [place] audra 9:04 AM CDT [facility] Blood Urine Negative NEG^Negat 01/09/2018 [place] audra 9:04 AM CDT [facility] Leukocyte Negative NEG^Negat 01/09/2018 [place] Esterase Urine audra 9:04 AM CDT [facility] Source Midstream 01/09/2018 [place] Urine 9:04 AM CDT [facility] WBC Urine 0 - 5 OTO5^0 - 01/09/2018 [place] 5 /HPF 9:04 AM CDT [facility] RBC Urine O - 2 OTO2^O - 01/09/2018 [place] 2 /HPF 9:04 AM CDT [facility] Specimen (Source) Anatomical Collection Method Collection Time Re ceived Time Location / / Volume Laterality Examination of 01/09/2018 8:25 01/09/2018 8:30 [place]stream urine AM CDT AM CDT specimen (procedure) Leticia Armendariz MD LAB - URINE ORDERABLES Performing Organization Address City/State/ZIP Code Phon e Number [facility] [address] [place], [place] [address] [address] PSA, screen (01/09/2018 8:24 AM CDT) P athologist Signature PSA 0.85 0 - 4 ug/L 01/09/2018 [place] 5:22 PM CDT [facility] Comment: Assay Method: Chemiluminescence using Siemens [place] analyzer Specimen Anatomical Collection Method Collection Time Receive d Time (Source) Location / / Volume Laterality Blood specimen 01/09/2018 8:24 AM 018 8:29 (specimen) CDT AM CDT Leticia Armendariz MD LAB - BLOOD ORDERABLES Performing Organization Address City/State/ZIP Code Phon e Number [facility] [address] [place] [address] [phone] [facility] [address] [address], U [phone] Testosterone Free and Total (01/09/2018 8:24 AM CDT) Analysis Performed At Patho logist Time Signature Testosterone 330 240 - 950 01/12/2018 [facility] Total ng/dL 8:31 AM CDT [facility] Comment: This test was developed and its performa nce characteristics determined by the [facility], ??Special Chemistry Laboratory. It has not been cleared or approved by the FDA. The laboratory is regulated under CLIA as qualified to perform high-comple xity testing. This test is used for clinical purposes. It should not be rega rded as investigational or for research. Sex Hormone Binding 30 11 - 80 nmol/L 01/09/2018 8:[address] [facility] Globulin [facility] Free Testosterone 6.92 4.7 - 24.4 ng/dL 01/12/2018 8:[address] [facility] Calculated [facility] Specimen Anatomical Collection Method Collection Time Receive d Time (Source) Location / / Volume Laterality Blood specimen 01/09/2018 8:24 AM 018 8:29 (specimen) CDT AM CDT Leticia Armendariz MD LAB - BLOOD ORDERABLES Performing Organization Address [facility] Phon e Number [address] Vitamin D Deficiency (01/09/2018 8:24 AM CDT) athologist Signature Vitamin D 24 20 - 75 01/09/2018 [facility] ug/L 7:52 PM CDT [facility] Comment: Season, race, dietary intake, and treatm ent affect the concentration of 65-wrwfogr-Npxuzga D. Values may decreas e during winter months and increase during summer months. Values 20-29 ug/L may indicate Vitamin D insufficiency and values <20 ug/L may indicate Vitamin D deficiency. Vitamin D determination is routinely per formed by an immunoassay specific for 25 hydroxyvitamin D3. ??If an individual is on vitamin D2 (ergocalciferol) supplementation, please specify 25 [place] vi tamin D2 and D3 level determination by LCMSMS test VITD23. Specimen Anatomical Collection Method Collection Time Receive d Time (Source) Location / / Volume Laterality Blood specimen 01/09/2018 8:24 AM 018 8:29 (specimen) CDT AM CDT Leticia Armendariz MD LAB - BLOOD ORDERABLES Performing Organization Address [facility] Phon e Number [address] (ABNORMAL) Comprehensive metabolic panel (01/09/2018 8:24 AM [facility]NOTE 2[place] Analysis Performed At [facility] Time Signature Sodium 142 133 - 144 01/09/2018 [place] mmol/L 5:[address] [facility] Potassium 4.2 3.4 - 5.3 01/09/2018 [facility] mmol/L 5:27 PM T [facility] Chloride 108 94 - 109 01/09/2018 [place] mmol/L 5:[address] [facility] Carbon Dioxide 25 20 - 32 01/09/2018 [facility] mmol/L 5:[address] [facility] Anion Gap 9 3 - 14 01/09/2018 [place] mmol/L 5:[address] [facility] Glucose 100 (H) 70 - 99 01/09/2018 [facility] mg/dL 5:[address] [facility] Comment: Fasting specimen Urea Nitrogen 9 7 - 30 mg/dL 01/09/2018 5:27 PM T [facility] Creatinine 0.87 0.66 - 1.25 mg/dL 01/09/2018 5:27 PM CD T [facility] GFR Estimate >90 >60 mL/min/1.7m2 01/09/2018 5:27 PM C DT [facility] Comment: Non GFR Calc GFR Estimate If >90 >60 mL/min/1.7m2 01/09/2018 5:27 P M [facility] Black [facility] Comment: GFR Calc Calcium 9.2 8.5 - 10.1 01/09/2018 5:27 PM [facility] mg/dL [facility] Bilirubin Total 0.8 0.2 - 1.3 mg/dL 01/09/2018 5:27 PM [facility] Albumin 4.2 3.4 - 5.0 g/dL 01/09/2018 5:27 PM [facility] Protein Total 7.5 6.8 - 8.8 g/dL 01/09/2018 5:27 PM FA [facility] Alkaline Phosphatase 93 40 - 150 U/L 01/09/2018 5:27 PM [facility] CDT [facility] ALT 28 0 - 70 U/L 01/09/2018 5:27 PM [facility] CDT [facility] AST 16 0 - 45 U/L 01/09/2018 5:27 [facility] Specimen Anatomical Collection Method Collection Time Receive d Time (Source) Location / / Volume Laterality Blood specimen 01/09/2018 8:24 AM 018 8:29 (specimen) CDT AM CDT Leticia Armendariz MD LAB - BLOOD ORDERABLES Performing Organization Address City/[facility]/ZIP Code Phon e Number [facility] [address], [place] [address] TSH with free T4 reflex (01/09/2018 8:24 AM CDT) P athologist Signature TSH 0.66 0.40 - 4.00 01/09/2018 [facility] mU/L 5:27 PM CDT [facility] Specimen Anatomical Collection Method Collection Time Receive d Time (Source) Location / / Volume Laterality Blood specimen 01/09/2018 8:24 AM 018 8:29 (specimen) CDT AM CDT Leticia Armendariz MD LAB - BLOOD ORDERABLES Performing Organization Address City/[facility]/ZIP Code Phon e Number [facility] [address], [place] [address] CBC with platelets differential (01/09/2018 8:24 AM CDT) Patholo gist Method Time Signature WBC 9.0 4.0 - 01/09/2018 [place] 11.0 9:[address] [facility] 10e9/L [place] RBC Count 4.78 4.4 - 5.9 01/09/2018 [place] 10e12/L 9:05 AM CDT [facility] Hemoglobin 14.8 13.3 - 01/09/2018 [place] 17.7 g/dL 9:05 AM CDT [facility] Hematocrit 43.3 40.0 - 01/09/2018 [place] 53.0 % 9:05 AM CDT [facility] MCV 91 78 - 100 01/09/2018 [place] fl 9:05 AM CDT [facility] [place] MCH 31.0 26.5 - 01/09/2018 [place] 33.0 pg 9:05 AM CDT [facility] [place] MCHC 34.2 31.5 - 01/09/2018 [place] 36.5 g/dL 9:05 AM CDT [facility] [place] RDW 12.5 10.0 - 01/09/2018 [place] 15.0 % 9:05 AM CDT [facility] Platelet Count 210 150 - 450 01/09/2018 [place] 10e9/L 9:05 AM CDT [facility] [place] Diff Method Automated 01/09/2018 [place] Method 9:05 AM CDT [facility] % Neutrophils 68.2 % 01/09/2018 [place] 9:05 AM CDT [facility] [place] % Lymphocytes 19.8 % 01/09/2018 [place] 9:05 AM CDT [facility] % Monocytes 9.8 % 01/09/2018 [place] 9:05 AM CDT [facility] % Eosinophils 1.8 % 01/09/2018 [place] 9:05 AM CDT [facility] % Basophils 0.4 % 01/09/2018 [place] 9:05 AM CDT [facility] Absolute 6.2 1.6 - 8.3 01/09/2018 [place] Neutrophil 10e9/L 9:05 AM CDT [facility] Absolute 1.8 0.8 - 5.3 01/09/2018 [place] Lymphocytes 10e9/L 9:05 AM CDT [facility] Absolute 0.9 0.0 - 1.3 01/09/2018 [place] Monocytes 10e9/L 9:05 AM CDT [facility] [place] Absolute 0.2 0.0 - 0.7 01/09/2018 [place] Eosinophils 10e9/L 9:05 AM CDT [facility] [place] Absolute 0.0 0.0 - 0.2 01/09/2018 [place] Basophils 10e9/L 9:05 AM CDT [facility] Specimen Anatomical Collection Method Collection Time Receive d Time (Source) Location / / Volume Laterality Blood specimen 01/09/2018 8:24 AM 018 8:29 (specimen) CDT AM CDT Leticia Armendariz MD LAB - BLOOD ORDERABLES Performing Organization Address City/State/ZIP Code Phon e Number [facility] [address] [place], [place] [address] [address] (ABNORMAL) Lipid panel reflex to direct LDL Fasting (01/09/2018 8:24 AM CDT) Analysis Performed At Patho logist Time Signature Cholesterol 198 <200 mg/dL 01/09/2018 [place] 5:27 PM CDT [facility] Triglycerides 548 (H) <150 mg/dL 01/09/2018 [place] 5:27 PM CDT [facility] Comment: Borderline high: ??150-199 mg/dl High: ? 200-499 mg/dl Very high: ? >499 mg/dl Fasting specimen HDL Cholesterol 23 (L) >39 mg/dL 01/09/2018 5:27 [facility] PM CDT [facility] LDL Cholesterol Cannot estimate LDL <100 mg/dL 01/09/2018 5:27 [facility] Calculated when triglyceride PM CDT [place] exceeds 400 mg/dL [facility] Non HDL 175 (H) <130 mg/dL 01/09/2018 5:27 [facility] Cholesterol PM CDT [facility] Comment: Above Desirable: ??130-159 mg/dl Borderline high: ??160-189 mg/dl High: ? 190-219 mg/dl Very high: ? >219 mg/dl Specimen Anatomical Collection Method Collection Time Receive d Time (Source) Location / / Volume Laterality Blood specimen 01/09/2018 8:24 AM 018 8:29 (specimen) CDT AM CDT Leticia Armendariz MD LAB - BLOOD ORDERABLES Performing Organization Address City/State/ZIP Code Phon e Number [facility] [address] [place] [address] documented in this encounter Visit Diagnoses Diagnosis Encounter for routine adult health exami nation without abnormal findings - Primary Essential hypertension Unspecified essential hypertension Atrial fibrillation status post cardiove rsion (H) Other fatigue Dysuria Primary insomnia Persistent disorder of initiating or adrianne ntaining sleep Mild single current episode of major dep ressive disorder (H) documented in this encounter Additional Health Concerns Assessment Noted Time PHQ-9 Depression Total Score: 12 01/04/2018 7:37 AM CD T documented as of this encounter Care Teams Civil Cad Tech Relationship Specialty Start Date End Date Leticia Armendariz MD PCP - General Internal Medicine 03/17/15 Leticia Armendariz MD PCP - Assigned PCP 06/30/14 11/07/18 [facility] [address] [place] [id number] Nahum Lemus MD 09/16/16 [place] [facility] [address] [place] [id number] Karuna Ramirez MD MD Cardiology 09/16/16 Karime Castro DO Referring Physician Orthopedics 05/13/17 [facility] [address] [facility] [address] [place], [place] [id number] Tito Almonte MD MD Orthopedics 05/13/17 [address] [facility] [address] [place], [place] [address] Leticia Armendariz MD Assigned PCP 06/30/14 01/06[facility] [address] [address] documented as of this encounter
--- OUTSIDE RECORDS SUMMARY | 2022-06-25 13:51 | XMS_ITS | Encounter Summary ---
:1965 Author Organization [facility] Address [address] [place] [address] Care Team Providers Name Role Phone Leticia Armendariz MD Primary Care Provider Nahum Lemus MD Unavailable Karuna Ramirez MD Unavailable [phone] Leticia Armendariz MD Unavailable Leticia Armendariz MD Unavailable Encounter Details Date Type Department Care Team Description 04/28/2017 Radiant Appointment [facility] Karime Castro ilateral hip pain Sports and Irina, Orthopedic Care [facility] [address] [place] [address] [phone] Social History Tobacco Use Types Packs/Day Years Used Date Smoking Tobacco: Every Day Cigarettes Smokeless Tobacco: Never Comments: 1 pack daily Alcohol Use Standard Drinks/Week Comments Yes 0 (1 standard drink = 0.6 oz pure alcoho l) 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 Date Recorded Male 08/13/2020 9:06 AM [employer] documented as of this encounter Plan of Treatment Not on filedocumented as of this encounter Procedures Procedure Name Priority Date/Time Associated Diagnosis Comme nts XR PELVIS AND HIP Routine 04/28/2017 11:07 AM Bilateral hip pa in Results for this RIGHT 2 VIEWS CDT procedure are in the results section. documented in this encounter Results XR Pelvis and Hip Right 2 Views (04/28/2017 11:07 AM CDT) Anatomical Region Laterality Modality Abdomen/Pelvis Right Computed Radiography Specimen (Source) Anatomical Location Collection Method / Collectio n Time Received Time / Laterality Volume Impressions 04/28/2017 11:58 AM CDT IMPRESSION: Bilateral proximal femoral mild hypertrophic changes at the head and neck junctions which could result in cam-type impingement. Hip joint space widths appe ar within normal limits. GABBY SO MD Narrative 04/28/2017 11:58 AM CDT PELVIS AND HIP RIGHT TWO VIEWS 04/28/2017 11:07 AM HISTORY: Pain in right hip. Pain in left hip. Procedure Note Crystal So MD - 04/28/2017Formatt ing of this note might be different from the original. PELVIS AND HIP RIGHT TWO VIEWS 04/28/2017 11:07 AM HISTORY: Pain in right hip. Pain in left hip. IMPRESSION: Bilateral proximal femoral m ild hypertrophic changes at the head and neck junctions which could result in cam-type impingement. Hip joint space widths appe ar within normal limits. GABYB SO MD [facility] documented in this encounter Visit Diagnoses Diagnosis Bilateral hip pain Pain in joint, pelvic region and thigh documented in this encounter Care Teams Institutional Nutrition Consultant Relationship Specialty Start Date End Date Leticia Armendariz MD PCP - General Internal Medicine 03/17/15 Leticia Armendariz MD PCP - Assigned PCP 06/30/14 11/07/[address] [address] Nahum Lemus MD 09/16/16 [place] [facility] [address] [facility] [place] [address] Karuna Ramirez MD MD Cardiology 09/16/16 Leticia Armendariz MD Assigned PCP 06/30/14 01/06/[address] [address] documented as of this encounter
--- OUTSIDE RECORDS SUMMARY | 2022-06-25 13:51 | XMS_ITS | Encounter Summary ---
:1965 Author Organization [place] Address [address] [place] [address]. [place] [address] Care Team Providers Name Role Phone Leticia Armendariz MD Primary Care Provider Nahum Lemus MD Unavailable Karuna Ramirez MD Unavailable [phone] Karime Castro DO Unavailable Tito Almonte MD Unavailable Leticia Armendariz MD Unavailable Leticia Armendariz MD Unavailable Reason for Visit Reason Onset Date Comments Previsit 06/30/2017 Records and imaging in epic/pacs Encounter Details Date Type Department Care Team Description 06/30/2017 PRE VISIT [facility] Tito Almonte P revisit (Records and Clinic MD imaging in epic/pacs) 9 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 Karime Castro Yes / No COMMENT / NOTES DATE & ACTION Patient Contacted? no Internal referral RECORDS CLINIC NAME (use N/A if no records ) DATE & ACTION RECEIVED RECS & IMG? Y/N (may include other helpful notes) External Clinics: n/a Internal Clinics: [facility] Records in [employer] with Dr. Leticia Armendariz [facility] Records and imaging in epic/pacs documented in this encounter Plan of Treatment Not on filedocumented as of this encounter Visit Diagnoses Not on filedocumented in this encounter Care Teams Friction Welding Machine Operator Relationship Specialty Start Date End Date Leticia Armendariz MD PCP - General Internal Medicine 03/17/15 Leticia Armendariz MD PCP - Assigned PCP 06/30/14 11/07/18 [place] [address] [place] [address] [id number] Nahum Lemus MD 09/16/16 [place] [facility] [address] [facility] [place] [address] Karuna Ramirez MD MD Cardiology 09/16/16 Karime Castro DO Referring Physician Orthopedics 05/13/17 [facility] [address] [facility] [address] [place], [place] [id number] Tito Almonte MD MD Orthopedics 05/13/17 [facility] [address] [place], [place] [address] Leticia Armendariz MD Assigned PCP 06/30/14 01/06/[address] [address] documented as of this encounter
--- OUTSIDE RECORDS SUMMARY | 2022-06-25 13:51 | XMS_ITS | Encounter Summary ---
:1965 Author Organization [place] Address [address] [place] [address] Care Team Providers Name Role Phone Leticia Armendariz MD Primary Care Provider Nahum Lmeus MD Unavailable Karuna Ramirez MD Unavailable [phone] Karime Castro DO Unavailable Tito Almonte MD Unavailable Leticia Armendariz MD Unavailable Leticia Armendariz MD Unavailable Reason for Visit Reason Onset Date Comments Refill Request 12/29/2017 Encounter Details Date Type Department Care Team Description 12/29/2017 MyC Refill [facility] Leticia Armendariz, Refill Request Demarco BOURGEOIS [address] [place] [address] [place] [address] [place], [place] [address] (Wo rk) Social History Tobacco Use Types Packs/Day Years Used Date Smoking Tobacco: Every Day Cigarettes Smokeless Tobacco: Never Comments: 1 pack daily Alcohol Use Standard Drinks/Week Comments Yes 0 (1 standard drink = 0.6 oz pure alcoho l) 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 Date Recorded 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 documented as of this encounter Miscellaneous Notes Telephone Encounter - Ayaka Wilson RN - 12/29/2017 2:13 PM CDT Rx already faxed Telephone Encounter - Ayaka Wilson RN - 12/29/2017 2:13 PM CDT Message from [place]: Original authorizing provider: MD Feng Gandhi would like a refill of the following medications: zolpidem (AMBIEN) 10 MG tablet [Leticia Armendariz MD] Preferred pharmacy: [facility] [id number] IN [facility] - [address] Comment: documented in this encounter Plan of Treatment Not on filedocumented as of this encounter Visit Diagnoses Diagnosis Primary insomnia Persistent disorder of initiating or adrianne ntaining sleep documented in this encounter Care Teams Zoo Keeper Relationship Specialty Start Date End Date Leticia Armendariz MD PCP - General Internal Medicine 03/17/15 Leticia Armendariz MD PCP - Assigned PCP 06/30/14 11/07/18 [place] [address] [place] [address] [id number] Nahum Lemus MD 09/16/16 [place] [facility] 1185 [facility] [place] [id number] Karuna Ramirez MD MD Cardiology 09/16/16 Karime Castro DO Referring Physician Orthopedics 05/13/17 [facility] [address] [facility] [address] [place] [address] Tito Almonte MD MD Orthopedics 05/13/17 2450 [facility] [address] [place], [place] [phone] Leticia Armendariz MD Assigned PCP 06/30/14 01/06/[address] [address] documented as of this encounter
--- OUTSIDE RECORDS SUMMARY | 2022-06-25 13:51 | XMS_ITS | Encounter Summary ---
:1965 Author Organization [place] Address [address] [place] [address] Care Team Providers Name Role Phone Leticia Armendariz MD Primary Care Provider Nahum Lemus MD Unavailable Karuna Ramirez MD Unavailable [phone] Karime Castro DO Unavailable Tito Almonte MD Unavailable Leticia Armendariz MD Unavailable Leticia Armendariz MD Unavailable Encounter Details Date Type Department Care Team Description 11/03/2017 [facility] Michel Caro product advisor [id number] [facility] [address] [place] [address] Social History Tobacco Use Types Packs/Day Years Used Date Smoking Tobacco: Every Day Cigarettes Smokeless Tobacco: Never Comments: 1 pack daily Alcohol Use Standard Drinks/Week Comments Yes 0 (1 standard drink = 0.6 oz pure alcoho l) 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 Date Recorded 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 [address] Karuna Ramirez MD MD Cardiology 09/16/16 Karime Castro DO Referring Physician Orthopedics 05/13/17 [facility] MED [address] [facility] [address] [place], [place] [phone] Tito Almonte MD MD Orthopedics 05/13/17 [facility] [address] [place], [place] [address] Leticia Armendariz MD Assigned PCP 06/30/14 01/06/19 [facility] [address] [place] [address] [id number] documented as of this encounter
--- OUTSIDE RECORDS SUMMARY | 2022-06-25 13:51 | XMS_ITS | Encounter Summary ---
:1965 Author Organization [place] Address [address] [place] [address] Care Team Providers Name Role Phone Leticia Armendariz MD Primary Care Provider Nahum Lemus MD Unavailable Karuna Ramirez MD Unavailable [phone] Karime Castro DO Unavailable Tito Almonte MD Unavailable Leticia Armendariz MD Unavailable Leticia Armendariz MD Unavailable Reason for Visit Reason Comments Medication Refill losartan Encounter Details Date Type Department Care Team Description 10/03/[address] 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 losartan (COZAAR) 50 MG tablet [Pharmacy Med Name: LOSARTAN POTASSIUM 50 MG TAB] 90 tablet 2 Sig: TAKE 1 TABLET (50 MG) BY MOUTH DAILY Angiotensin-II Receptors Failed 10/03/2017 3:04 AM Failed - Blood pressure under 140/90 in past 12 months. BP Readings from Last 3 Encounters: 07/13/17 159/87 05/12/17 132/86 04/28/17 128/86 Failed - Normal serum creatinine on file in past 12 months Recent Labs Lab Test 08/02/16 1227 CR 0.89 Failed - Normal serum potassium on file in past 12 months Recent Labs Lab Test 08/02/16 1227 POTASSIUM 4.1 Passed - Recent or future visit with authorizing provider's specialty Patient had office visit in the last year or has a visit in the next 30 days with authorizing provider. See Patient Info tab in inbasket, or Choose Columns in Meds & Orders section of the refill encounter. Passed - Patient is age 18 or older Routing refill request to provider for review/approval because: Protocol failed--bp outside SO parameters. Please advise, thanks. [employer] documented in this encounter Plan of Treatment Not on filedocumented as of this encounter Visit Diagnoses Diagnosis Atrial fibrillation status post cardiove rsion documented in this encounter Care Teams International Account Representative Relationship Specialty Start Date End Date Leticia Armendariz MD PCP - General Internal Medicine 03/17/15 Leticia Armendariz MD PCP - Assigned PCP 06/30/14 11/07/18 [place] [address] [place] [address] Nahum Lemus MD 09/16/16 [place] [address] [facility] [place] [id number] Karuna Ramirez MD MD Cardiology 09/16/16 Karime Castro DO Referring Physician Orthopedics 05/13/17 [facility] [address] [facility] [address] [place], [place] [address] Tito Almonte MD MD Orthopedics 05/13/17 2450 [facility] [address] [place] [address] Leticia Armendariz MD Assigned PCP 06/30/14 01/06/19 [facility] [address] [place] [address] documented as of this encounter
--- OUTSIDE RECORDS SUMMARY | 2022-06-25 13:51 | XMS_ITS | Encounter Summary ---
:1965 Author Organization [facility] Address [address] [facility] [place] [address] Care Team Providers Name Role Phone Leticia Armendariz MD Primary Care Provider Nahum Lemus MD Unavailable Karuna Ramirez MD Unavailable [phone] Antonina Mckeon DO Unavailable Tito Almonte MD Unavailable Leticia Armendariz MD Unavailable Leticia Armendariz MD Unavailable Reason for Visit Reason Comments Consult Pt. states that he is here t serafin for Bilateral Hip Pain. He mention that he been having pain for years, no injury. He has not have any kind of treatment done in the past. Referring: ANTONINA MCKEON Encounter Details Date Type Department Care Team Description 06/30/2017 Office Visit [facility]opa[facility] Tito Almonte [facility] osteoarthritis of both [address] [facility] [address] [facility] hips (Primary Dx) 4th [address] [place] [id number] [phone] Social History Tobacco Use Types Packs/Day Years Used Date Smoking Tobacco: Every Day Cigarettes Smokeless Tobacco: Never Comments: 1 pack daily Alcohol Use Standard Drinks/Week Comments Yes 0 (1 standard drink = 0.6 oz pure alcoho l) 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 Date Recorded 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 states that he is here today for Bilateral Hip Pain. He mention that he been having pain for years, no injury. He has not have any kind of treatment done in the past. Referring: ANTONINA MCKEON) Physician: Antonina Mckeon HPI: Feng Perez is a 52 year old male who presents today for evaluation of his hips. The visitis prompted by an incidental finding of a loose body in the left hip seen on a CT scan done for diverticulitis. Symptom Profile Location of symptoms: Low back, down the anterior thighs, into his feet. He also endorses groin pain. He reports that the symptoms are fairly long standing. 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 Current Status: Results of the patient???s Hip Disability and Osteoarthritis Outcome Score (HOOS) are as follows (0-100 scales with 100 being the theoretical best): Pain: 50 Symptoms: 50 ADLs:48.52 Sports/Recreation: 50 Quality of Life:50 ([email or web address]/) MEDICAL HISTORY: Past Medical History: Diagnosis Date ??? A-fib (H) ??? Arrhythmia afib ablation ??? Atrial fibrillation (H) ??? Hepatitis 15 yrs ago from bad food ??? Hypertension ??? Palpitations Pertinent negatives: Patient has no history of DVT or PE. Discussed risk factors. Medications: Current Outpatient Prescriptions: ??? dicyclomine (BENTYL) 10 MG capsule, TAKE 1 CAPSULE BY ORAL ROUTE 2-4 TIMES EVERY DAY, Disp: 240 capsule, Rfl: 3 ??? zolpidem (AMBIEN) 10 MG tablet, Take 1 tablet (10 mg) by mouth nightly as needed for sleep, Disp: 30 tablet, Rfl: 1 ??? amLODIPine (NORVASC) 5 MG tablet, Take 1 tablet (5 mg) by mouth daily, Disp: 90 tablet, Rfl: 2 ??? losartan (COZAAR) 50 MG tablet, Take 1 tablet (50 mg) by mouth daily, Disp: 90 tablet, Rfl: 2 ??? omeprazole (PRILOSEC) 20 MG CR capsule, Take 20 mg by mouth daily, Disp: , Rfl: ??? aspirin 81 MG EC tablet, Take 2 tablets (162 mg) by mouth daily, Disp: 30 tablet, Rfl: Allergies: Review of patient's allergies indicates no known allergies. SURGICAL HISTORY: Past Surgical History: Procedure Laterality Date ??? COLONOSCOPY N/A 06/25/2015 Procedure: COLONOSCOPY; Surgeon: Haven Sosa MD; Location: [facility] ??? FUSION CERVICAL ANTERIOR ONE LEVEL 04/15/2014 Procedure: FUSION CERVICAL ANTERIOR ONE LEVEL; Surgeon: Umang Sandoval MD; Location: [facility] ??? GENITOURINARY SURGERY vasectomy FAMILY HISTORY: Family History Problem Relation Age of Onset ??? Arthritis Mother ??? Circulatory Father ??? C.A.D. Maternal Grandmother ??? C.A.D. Paternal Grandmother ??? Coronary Artery Disease No family hx of ??? Breast Cancer No family hx of ??? Colon Cancer No family hx of ??? Prostate Cancer No family hx of SOCIAL HISTORY: Social History Substance Use Topics ??? Smoking status: Current Every Day Smoker Types: Cigarettes ??? Smokeless tobacco: Never Used Comment: 1 pack daily ??? Alcohol use 0.0 oz/week 0 Standard drinks or equivalent per week REVIEW OF SYSTEMS: The comprehensive review of systems from the intake form was reviewed with the patient. No fever, weight change or fatigue. No dry eyes. No oral ulcers, sore throat or voice change. No palpitations, syncope, angina or edema. No chest pain, excessive sleepiness, shortness of breath or hemoptysis. No abdominal pain, nausea, vomiting, diarrhea or heartburn. No skin rash. No focal weakness or numbness. No bleeding or lymphadenopathy. No rhinitis or hives. Exam: On physical examination the patient appears the stated age, is in no acute distress, affectThe is appropriate, and breathing is non-labored. Vitals are documented in the EMR and have been reviewed: Ht 1.778 m (5' 10) Wt 91.2 kg (201 lb 1.6 oz) BMI 28.85 kg/m2 5 10 Body mass index is 28.85 kg/(m^2). Rises from chair: with some effort Gait: has has a slow antalgic gait, foavoring the right more than the left RIGHT hip subjective: a little irritated Abd: 30 Add:10 PFC: Flexion: 90 IRF:-10 ERF:30 Impingement test:++ groin only LEFT hip subjective:a little irritated Abd: Add: PFC: Flexion: 95 IRF: 0 ERF: Impingement test: ++ groin only Resisted straight leg raise: ROSIBEL: Distally, the circulatory, motor, and sensation exam is intact with 5/5 EHL, gastroc-soleus, and tibialis anterior. Sensation to light touch is intact. Dorsalis pedis and posterior tibialis pulses are palpable. There are no sores on the feet, no bruising, and no lymphedema. X-rays: Study Result CT ABDOMEN AND PELVIS WITH CONTRAST 04/20/2017 9:53 AM ?? HISTORY: Left lower quadrant pain and diarrhea. ?? TECHNIQUE: Axial images from the lung bases to the symphysis are performed with additional coronal reformatted images. 100 mL of Isovue 370 are given intravenously. Radiation dose for this scan was reduced using automated exposure control, adjustment of the mA and/or kV according to patient size, or iterative reconstruction technique. Oral contrast is also given. ?? FINDINGS: The lung bases are clear. ?? Abdomen: The upper abdominal organs are within normal limits including the liver, spleen, gallbladder, pancreas, adrenal glands and kidneys. Simple-appearing cyst is present in the posterior lower pole right kidney on image 35 measuring 1.5 cm in diameter. No enlarged abdominal lymph nodes. The bowel is normal in caliber without obstruction or diverticulitis. Appendix is normal. ?? Pelvis: The bladder, prostate and rectum are unremarkable. No enlarged pelvic lymph nodes or free fluid. Mild degenerative spine changes are present. No aggressive-appearing bone lesions are noted. Small well-corticated bone fragment is noted in the left acetabulum on series 2, image 71 and image 83 of series 3 measuring approximately 1 cm in diameter. ? IMPRESSION: 1. No evidence of bowel obstruction, diverticulitis or appendicitis. No urinary tract calculi are appreciated. Simple right renal cyst is noted. Abdominal and pelvic organs are otherwise within normal limits. 2. Well-corticated bony fragment in the left acetabulum. No obvious donor site but probably from old cartilaginous injury. Followup as clinically warranted. ?? FALLON ORTEZ MD Study Result PELVIS AND HIP RIGHT TWO VIEWS 04/28/2017 11:07 AM ?? HISTORY: Pain in right hip. Pain in left hip. ? IMPRESSION: Bilateral proximal femoral mild hypertrophic changes at the head and neck junctions which could result in cam-type impingement. Hip joint space widths appear within normal limits. ?? GABBY SO MD Study Result MR HIP LEFT WITHOUT CONTRAST 05/02/2017 10:22 [...] No adjacent soft tissues pathology is seen. ? IMPRESSION: There is a 1.0 cm calcified body within the medial aspect of the left hip joint corresponding to the abnormality on the recent CT. This likely represents a loose body, although the origin is not identified. ?? SARAH BRAVO MD Assessment: This is a 52 year old with two symptom patterns: 1) low back and radicular and 2) groin.The groin symptoms are reproducible with hip examination and are likely related to early to moderatehip osteoarthritis, a little more advanced on the left compared to the left and associated with cam anatomy. I agree with the previous MD that saw this and questioned if the left side has an area of AVN but I think more likely it may represent a subchdronal cyst versus an avulsion of the ligamentum teres. I would interpret the left sided loose body-- one that appears stable and within the notch-- as member service representative of a degenerative process. The back symptoms are consistent with a back problem. Plan: Intra-articular steroid Answers for HPI/ROS submitted by the patient on 06/16/2017 General Symptoms: Yes Skin Symptoms: No HENT Symptoms: No EYE SYMPTOMS: Yes HEART SYMPTOMS: No LUNG SYMPTOMS: No INTESTINAL SYMPTOMS: No URINARY SYMPTOMS: No REPRODUCTIVE SYMPTOMS: No SKELETAL SYMPTOMS: Yes BLOOD SYMPTOMS: No NERVOUS SYSTEM SYMPTOMS: Yes MENTAL HEALTH SYMPTOMS: No Fever: No Loss of appetite: No Weight loss: No Weight gain: No Fatigue: Yes Night sweats: No Chills: No Increased stress: Yes Excessive hunger: No Excessive thirst: No Feeling hot or cold when others believe the temperature is normal: No Loss of height: No Post-operative complications: No Surgical site pain: No Hallucinations: No Change in or Loss of Energy: No Hyperactivity: No Confusion: No Eye pain: No Vision loss: No Dry eyes: No Watery eyes: No Eye bulging: No Double vision: No Flashing of lights: No Spots: No Floaters: Yes Redness: No Crossed eyes: No Tunnel Vision: No Yellowing of eyes: No Eye irritation: No Back pain: Yes Muscle aches: Yes Neck pain: Yes Swollen joints: No Joint pain: No Bone pain: No Muscle cramps: No Muscle weakness: Yes Joint stiffness: Yes Bone fracture: No Trouble with coordination: No Dizziness or trouble with balance: Yes Fainting or black-out spells: No Memory loss: No Headache: No Seizures: No Speech problems: No Tingling: Yes Tremor: No Weakness: Yes Difficulty walking: Yes Paralysis: No Numbness: Yes documented in this encounter Nursing Notes Masha Cleveland MA - 06/30/2017 3:00 PM CDT Reason For Visit: Chief Complaint Patient presents with ??? Consult Pt. states that he is here today for Bilateral Hip Pain. He mention that he been having pain for years, no injury. He has not have any kind of treatment done in the past. Referring: ANTONINA MCKEON Pain Assessment Patient Currently in Pain: Yes 0-10 Pain Scale: 5 Primary Pain Location: Hip Pain Orientation: Left Pain Descriptors: Discomfort Alleviating Factors: Rest Aggravating Factors: Movement, Walking, Standing, Sitting, Lying HEIGHT: 5' 10, WEIGHT: 201 lbs 1.6 oz, BMI: Body mass index is 28.85 kg/(m^2). Current Outpatient Prescriptions Medication Sig Dispense Refill ??? dicyclomine (BENTYL) 10 MG capsule TAKE 1 CAPSULE BY ORAL ROUTE 2-4 TIMES EVERY DAY 240 capsule 3 ??? zolpidem (AMBIEN) 10 MG tablet Take 1 tablet (10 mg) by mouth nightly as needed for sleep 30 tablet 1 ??? amLODIPine (NORVASC) 5 MG tablet Take 1 tablet (5 mg) by mouth daily 90 tablet 2 ??? losartan (COZAAR) 50 MG tablet Take 1 tablet (50 mg) by mouth daily 90 tablet 2 ??? omeprazole (PRILOSEC) 20 MG CR capsule Take 20 mg by mouth daily ??? aspirin 81 MG EC tablet Take 2 tablets (162 mg) by mouth daily 30 tablet No Known Allergies documented in this encounter Miscellaneous Notes Addendum Note - Masha Cleveland MA - 06/30/2017 3:39 PM CDT Addended by: MASHA CLEVELAND on: 06/30/2017 03:39 PM Modules accepted: Orders documented in this encounter Plan of Treatment Not on filedocumented as of this encounter Results XR Joint Injection Major Bilateral (07/13/2017 4:31 PM SALESPERSON MEATS) Anatomical Region Laterality Modality Bilateral Radio Fluoroscopy Specimen (Source) Anatomical Location Collection Method / Collectio n Time Received Time / Laterality Volume Impressions 07/14/2017 2:02 PM SALESPERSON MEATS IMPRESSION: ??Technically successful right and left hip steroid/anesthetic injections with parti al initial pain relief. Long-term results pending. JARRELL VINCENT PA-C Narrative 07/14/2017 2:02 PM SALESPERSON MEATS XR JOINT INJECTION MAJOR BILATERAL ? 07/13/2017 4:31 PM ?? History: ??Bilateral hip osteoarthritis. Request for bilateral steroid injections. ?? PROCEDURE: The risks (including bleeding , infection, and allergy to contrast and medications) and benefits o f the procedure were explained to the patient and consent was obtained. ??Using sterile technique and fluoroscopic guidance, a #22 gauge needl e was placed into the bilateral hip joints using an anterior a pproach. ??A small amount of contrast was injected to confirm intraar ticular location of the needle tip. ??40mg of Kenalog and 3-4 mL Marcai ne 0.5% were injected into each joint. ??Estimated blood loss during the procedure was less than 5 mL. No specimens collected. No initial compl ication. ?? Fluoroscopy time: 0.3 minutes Images Obtained: 2 The patients pain level (0-10 scale) wer e as follows: ?? PRE INJECTION ?? 5 ?? POST INJECTION 2 ?? Procedure Note Jarrell Vincent PA-C - 07/14/2017F ormatting of this note might be different from the original. XR JOINT INJECTION MAJOR BILATERAL 2016 4:31 PM History: Bilateral hip osteoarthritis. R equest for bilateral steroid injections. PROCEDURE: The risks (including bleeding , infection, and allergy to contrast and medications) and benefits o f the procedure were explained to the patient and consent was obtained. Using sterile technique and fluoroscopic guidance, a #22 gauge needl e was placed into the bilateral hip joints using an anterior a pproach. A small amount of contrast was injected to confirm intraar ticular location of the needle tip. 40mg of Kenalog and 3-4 mL Marcaine 0.5% were injected into each joint. Estimated blood loss during the p rocedure was less than 5 mL. No specimens collected. No initial compl ication. Fluoroscopy time: 0.3 minutes Images Obtained: 2 The patients pain level (0-10 scale) wer e as follows: PRE INJECTION 5 POST INJECTION 2 IMPRESSION: Technically successful right and left hip steroid/anesthetic injections with parti al initial pain relief. Long-term results pending. JARRELL VINCENT PA-C Tito Almonte MD [facility] ORDER WHITNEY documented in this encounter Visit Diagnoses Diagnosis Other secondary osteoarthritis of both h ips - Primary Other secondary osteoarthritis of both h ips documented in this encounter Care Teams Account Consultant Relationship Specialty Start Date End Date Leticia Armendariz MD PCP - General Internal Medicine 03/17/15 Leticia Armendariz MD PCP - Assigned PCP 06/30/14 11/07/18 [facility] [address] [id number] Nahum Lemus MD 09/16/16 [facility] [address] [facility] [place] [id number] Karuna Ramirez MD MD Cardiology 09/16/16 Antonina Mckeon DO Referring Physician Orthopedics 05/13/17 [facility] [address] [facility] [address] [place], [place] [id number] Tito Almonte MD MD Orthopedics 05/13/17 [address] [facility] [address] [place], [place] [address] Leticia Armendariz MD Assigned PCP 06/30/14 01/06/19 [facility] [address] [address] documented as of this encounter
--- OUTSIDE RECORDS SUMMARY | 2022-06-25 13:51 | XMS_ITS | Encounter Summary ---
:1965 Author Organization [facility] Address [address] [place] [address] Care Team Providers Name Role Phone Leticia Armendariz MD Primary Care Provider Nahum Lemus MD Unavailable Karuna Ramirez MD Unavailable [phone] Karime Castro DO Unavailable Tito Almonte MD Unavailable Leticia Armendariz MD Unavailable Leticia Armendariz MD Unavailable Reason for Visit (Routine) - Closed Specialty Diagnoses / Procedures Referred By Contact Refer red To Contact Radiology / Radiology. Diagnoses Epic order, SB Myles, patient takes asprin Rh Xray Rs cc Procedures XR JOINT INJECTION MAJOR TOVA [address] [facility] [address] [place] [address] Phone: Fax: Referral ID Status Reason Start Date Expiration Date Visits Requ ested Visits Authorized [id number] Closed 07/11/2017 07/11/2018 1 1 Encounter Details Date Type Department Care Team Description 07/13/2017 [facility] Tito Almonte econdary Encounter Corazon Shaffer MD osteoarthritis of both [id number] 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 documented as of this encounter Last Filed Vital Signs Vital Sign Reading Time Taken Comments Blood Pressure 159/87 07/13/2017 3:39 PM PULLEY MAN Pulse 84 07/13/2017 3:39 PM PULLEY MAN Temperature - - Respiratory Rate - - Oxygen Saturation - - Inhaled Oxygen Concentration - - Weight - - Height - - Body Mass Index - - documented in this encounter Medications at Time of Discharge Medication Sig Dispensed Refills Start Date End Date omeprazole (PRILOSEC) 20 Take 20 mg by 0 MG CR capsule mouth daily amLODIPine (NORVASC) 5 MG Take 1 tablet (5 90 tablet 2 09/0510/13/2017 tabletIndications: Atrial mg) by mouth daily fibrillation status post cardioversion (H) aspirin 81 MG EC Take 2 tablets 30 tablet 0 08/20/2016 05/0 09/2017 tabletIndications: Chest (162 mg) by mouth pain, unspecified type, daily Atrial fibrillation status post cardioversion (H) dicyclomine (BENTYL) 10 TAKE 1 CAPSULE BY 240 capsule 3 03/0607/24/2018 MG capsule ORAL ROUTE 2-4 TIMES EVERY DAY losartan (COZAAR) 50 MG Take 1 tablet (50 90 tablet 2 09/2310/03/2017 tabletIndications: Atrial mg) by mouth daily fibrillation status post cardioversion (H) zolpidem (AMBIEN) 10 MG Take 1 tablet (10 30 tablet 1 03/3008/29/2017 tabletIndications: mg) by mouth Primary insomnia nightly as needed for sleep documented as of this encounter Progress Notes Santi Caro RN - 07/13/2017 4:21 PM CST Pt tolerated ortho procedure well, post procedure pain level now a 1-2 from a 5 starting (bilaterally). There were no complications during procedure. Pt verbalized understanding of written and verbal instructions and left department in stable and satisfactory condition with family. There is no evidence of bleeding upon discharge. EY MAN Jarrell Vincent PA-C - 07/13/2017 4:14 PM CST RADIOLOGY PROCEDURE NOTE Patient name: Feng Perez : 1965 Pre-procedure diagnosis: Bilateral hip pain Post-procedure diagnosis: Same Procedure Date/Time: July 13, 2017 4:14 PM Procedure: Bilateral hip steroid injection Estimated blood loss: None Specimen(s) collected with description: none The patient tolerated the procedure well with no immediate complications. Significant findings:none See imaging dictation for procedural details. Provider name: Jarrell Vincent Panel Builder(s):None EY MAN documented in this encounter Plan of Treatment Not on filedocumented as of this encounter Procedures Procedure Name Priority Date/Time Associated Diagnosis Comme nts XR JOINT INJECTION Routine 07/13/2017 4:31 PM Other secondary Results for this MAJOR BILATERAL PULLEY MAN osteoarthritis of both pr ocedure are in hips the results section. documented in this encounter Results XR Joint Injection Major Bilateral (07/13/2017 4:31 PM PULLEY MAN) Anatomical Region Laterality Modality Bilateral Radio Fluoroscopy Specimen (Source) Anatomical Location Collection Method / Collectio n Time Received Time / Laterality Volume Impressions 07/14/2017 2:02 PM PULLEY MAN IMPRESSION: ??Technically successful right and left hip steroid/anesthetic injections with parti al initial pain relief. Long-term results pending. JARRELL VINCENT PA-C Narrative 07/14/2017 2:02 PM PULLEY MAN XR JOINT INJECTION MAJOR BILATERAL ? 07/13/2017 [...] both h ips documented in this encounter Administered Medications Inactive Administered Medications - up to 3 most recent administrations Medication Order MAR Action Action Date Dose Rate Site bupivacaine (MARCAINE) 0.5 % injection Starting on Tue07/13/17 at 1531, For 1 d Vania mauricio Robin : cabinet override BUPivacaine (MARCAINE) injection 0.5% Given by Other 07/13/2017 4:34 PM PULLEY MAN 40 mg (PF) 40 mg (8 mL), INTRA-ARTICULAR, ONCE, On Tue07/13/17 at 1545, For 1 dose iopamidol (ISOVUE-M 200) solution 10 Given by Other 07/13/2017 4:32 PM PULLEY MAN 5 mLs mL 10 mL, INTRA-ARTICULAR, ONCE, On Tue07/13/17 at 1545, For 1 dose lidocaine (PF) (XYLOCAINE) 1 % Given by Other 07/13/2017 4:32 PM PULLEY MAN 100 mg injection 100 mg 100 mg (10 mL), Subcutaneous, ONCE, On Tue07/13/17 at 1545, For 1 dose lidocaine 1 % injection Starting on Tue07/13/17 at 1531, For 1 d ose, Santi Caro : cabinet override triamcinolone acetonide (KENALOG-40) 40 MG/ML injection Starting on Tue07/13/17 at 1531, For 1 d ose, Santi Caro : cabinet override triamcinolone acetonide (KENALOG-40) Given by Other 07/13/2017 4:34 PM PULLEY MAN 80 mg injection 80 mg 80 mg, INTRA-ARTICULAR, ONCE, On Tue07/13/17 at 1545, For 1 dose documented in this encounter Care Teams Associate Publisher Relationship Specialty Start Date End Date Leticia Armendariz MD PCP - General Internal Medicine 03/17/15 Leticia Armendariz MD PCP - Assigned PCP 06/30/14 11/07/[address] [id number] Nahum Lemus MD 09/16/16 [facility] [address] [facility] [place] [id number] Karuna Ramirez MD MD Cardiology 09/16/16 Karime Castro DO Referring Physician Orthopedics 05/13/17 [facility] [address] [facility] [address] [place] [address] Tito Almonte MD MD Orthopedics 05/13/[address] [place] [address] Leticia Armendariz MD Assigned PCP 06/30/14 01/06/19 [place] [address] [place] [phone] documented as of this encounter
--- OUTSIDE RECORDS SUMMARY | 2022-06-25 13:51 | XMS_ITS | Encounter Summary ---
:1965 Author Organization [place] Address [address] [place] [address] Care Team Providers Name Role Phone Leticia Armendariz MD Primary Care Provider Nahum Lemus MD Unavailable Karuna Ramirez MD Unavailable [phone] Karime Castro DO Unavailable Tito Almonte MD Unavailable Leticia Armendariz MD Unavailable Leticia Armendariz MD Unavailable Encounter Details Date Type Department Care Team Description 04/26/2018 Orders Only [facility] Digna vated triglycerides with [facility] high cholesterol [address] [place] [address] Social History Tobacco Use Types Packs/Day Years Used Date Smoking Tobacco: Every Day Cigarettes Smokeless Tobacco: Never Comments: 1 pack daily Alcohol Use Standard Drinks/Week Comments Yes 0 (1 standard drink = 0.6 oz pure alcoho l) 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 Date Recorded 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 LDL CHOLESTEROL Routine 04/26/2018 8:03 AM Elevated Result s for this DIRECT CDT triglycerides with procedure are in high cholesterol the results section. ALT Routine 04/26/2018 8:03 AM Elevated Results f or this CDT triglycerides with procedure are in high cholesterol the results section. documented in this encounter Results (ABNORMAL) LDL cholesterol direct (04/26/2018 8:03 AM CDT) [facility] gist Method Time Signature LDL Cholesterol 117 (H) <100 04/26/2018 [facility] Direct mg/dL 1:54 PM CDT [facility] Comment: Above desirable: ??100-129 mg/dl Borderline High: ??130-159 mg/dL High: ? 160-189 mg/dL Very high: ? >189 mg/dl Specimen Anatomical Collection Method Collection Time Receive d Time (Source) Location / / Volume Laterality 04/26/2018 8:03 AM 8 8:04 CDT AM CDT Leticia Armendariz MD LAB - BLOOD ORDERABLES Performing Organization Address City/[facility]/ZIP Code Phon e Number [facility] [address] [place] [phone] ALT (04/26/2018 8:03 AM CDT) athologist Signature ALT 30 0 - 70 U/L 04/26/2018 [facility] 1:34 PM CDT [facility] Specimen Anatomical Collection Method Collection Time Receive d Time (Source) Location / / Volume Laterality Blood specimen 04/26/2018 8:03 AM 018 8:04 (specimen) CDT AM CDT Leticia Armendariz MD LAB - BLOOD ORDERABLES Performing Organization Address City/[facility]/ZIP Code Phon e Number [facility] [address] [place] [phone] (ABNORMAL) Lipid panel reflex to direct LDL Fasting (04/26/2018 8:03 AM CDT) athologist Signature Cholesterol 222 (H) <200 mg/dL 04/26/2018 [facility] 1:34 PM CDT [facility] Comment: Desirable: <200 mg/dl Triglycerides 439 (H) <150 mg/dL 04/26/2018 1:[address] [facility] Comment: Borderline high: ??150-199 mg/dl High: ? 200-499 mg/dl Very high: ? >499 mg/dl Fasting specimen HDL Cholesterol 31 (L) >39 mg/dL 04/26/2018 1:38 [facility] PM CDT [facility] LDL Cholesterol Cannot estimate LDL <100 mg/dL 04/26/2018 1:38 [facility] Calculated when triglyceride PM CDT [facility] exceeds 400 mg/dL [facility] Non HDL 191 (H) <130 mg/dL 04/26/2018 1:38 [facility] Cholesterol PM CDT [facility] Comment: Above Desirable: ??130-159 mg/dl Borderline high: ??160-189 mg/dl High: ? 190-219 mg/dl Very high: ? >219 mg/dl Specimen Anatomical Collection Method Collection Time Receive d Time (Source) Location / / Volume Laterality Blood specimen 04/26/2018 8:03 AM 018 8:04 (specimen) CDT AM CDT Leticia Armendariz MD LAB - BLOOD ORDERABLES Performing Organization Address City/State/ZIP Code Phon e Number [facility] [address] [place] [address] documented in this encounter Visit Diagnoses Diagnosis Elevated triglycerides with high cholest [place] Mixed hyperlipidemia documented in this encounter Additional Health Concerns Assessment Noted Time PHQ-9 Depression Total Score: 12 01/04/2018 7:37 AM CD T documented as of this encounter Care Teams Fashion Designer Relationship Specialty Start Date End Date Leticia Armendariz MD PCP - General Internal Medicine 03/17/15 Leticia Armendariz MD PCP - Assigned PCP 06/30/14 11/07/18 [facility] [address] [place], [place] [address] Nahum Lemus MD 09/16/16 [place] [facility] [address] [facility] [place] [id number] Karuna Ramirez MD MD Cardiology 09/16/16 Karime Castro DO Referring Physician Orthopedics 05/13/17 [facility] [id number] [facility] [address] [place] [address] Tito Almonte MD MD Orthopedics 05/13/17 [address] [facility] [address] [place] [address] Leticia Armendariz MD Assigned PCP 06/30/14 01/06/19 [facility] [address] [place] [address] documented as of this encounter
--- OUTSIDE RECORDS SUMMARY | 2022-06-25 13:51 | XMS_ITS | Encounter Summary ---
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 [address] [facility] [address] [place] [address] Social History Tobacco Use Types Packs/Day Years Used Date Smoking Tobacco: Every Day Cigarettes Smokeless Tobacco: Never Comments: 1 pack daily Alcohol Use Standard Drinks/Week Comments Yes 0 (1 standard drink = 0.6 oz pure alcoho l) 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 Date Recorded 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 documented as of this encounter Plan of Treatment Not on filedocumented as of this encounter Visit Diagnoses Not on filedocumented in this encounter Care Teams Fitter Placer Relationship Specialty Start Date End Date Leticia Armendariz MD PCP - General Internal Medicine 03/17/15 Leticia Armendariz MD PCP - Assigned PCP 06/30/14 11/07/18 [facility] [address] [place] [address] Nahum Lemus MD 09/16/16 [place] [facility] [address] [place] [address] Karuna Ramirez MD MD Cardiology 09/16/16 Karime Castro DO Referring Physician Orthopedics 05/13/17 [facility] [address] [facility] [address] [place], [place] [address] Tito Almonte MD MD Orthopedics 05/13/17 [address] [facility] [address] [place], [place] [address] Leticia Armendariz MD Assigned PCP 06/30/14 01/06/19 [facility] [address] [place] [phone] documented as of this encounter
--- OUTSIDE RECORDS SUMMARY | 2022-06-25 13:51 | XMS_ITS | Encounter Summary ---
:1965 Author Organization [place] Address [address] [place] [address] Care Team Providers Name Role Phone Leticia Armendariz MD Primary Care Provider Nahum Lemus MD Unavailable Karuna Ramirez MD Unavailable [phone] Kariem Castro DO Unavailable Tito Almonte MD Unavailable Leticia Armendariz MD Unavailable Leticia Armendariz MD Unavailable Encounter Details Date Type Department Care Team Description 07/07/2017 [facility] Dea Stewart, silk screen printer helper [address] [place] [address] Social History Tobacco Use Types Packs/Day Years Used Date Smoking Tobacco: Every Day Cigarettes Smokeless Tobacco: Never Comments: 1 pack daily Alcohol Use Standard Drinks/Week Comments Yes 0 (1 standard drink = 0.6 oz pure alcoho l) 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 Date Recorded 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 documented as of this encounter Plan of Treatment Not on filedocumented as of this encounter Visit Diagnoses Not on filedocumented in this encounter Care Teams Track Vehicle Repairer Relationship Specialty Start Date End Date Leticia Armendariz MD PCP - General Internal Medicine 03/17/15 Leticia Armendariz MD PCP - Assigned PCP 06/30/14 11/07/18 [facility] [address] [place] [address] Nahum Lemus MD 09/16/16 [place] [facility] [address] [facility] [place] [address] Karuna Ramirez MD MD Cardiology 09/16/16 Karime Castro DO Referring Physician Orthopedics 05/13/17 [facility] [address] [facility] [address] [place], [place] [address] Tito Almonte MD MD Orthopedics 05/13/[address] [place], [place] [phone] Leticia Armendariz MD Assigned PCP 06/30/14 01/06/19 [facility] [address] [place] [address] [phone] documented as of this encounter
--- OUTSIDE RECORDS SUMMARY | 2022-06-25 13:51 | XMS_ITS | Encounter Summary ---
:1965 Author Organization [place] Address [address] [place] [address] Care Team Providers Name Role Phone Leticia Armendariz MD Primary Care Provider Nahum Lemus MD Unavailable Karuna Ramirez MD Unavailable [phone] Karime Castro DO Unavailable Tito Almonte MD Unavailable Leticia Armendariz MD Unavailable Leticia Armendariz MD Unavailable Encounter Details Date Type Department Care Team Description 01/09/2018 [facility] Only [facility] Enc ounter for routine adult health examination without abnormal findings; [facility] Other fatigue; [address] [place] [address] Social History Tobacco Use Types Packs/Day Years Used Date Smoking Tobacco: Every Day Cigarettes Smokeless Tobacco: Never Comments: 1 pack daily Alcohol Use Standard Drinks/Week Comments Yes 0 (1 standard drink = 0.6 oz pure alcoho l) 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 Date Recorded 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 without abnormal findings TESTOSTERONE FREE AND Routine 01/09/2018 8:24 AM Other f atigue Results for this TOTAL CDT Encounter for procedure are in routine adult the results health examination section. without abnormal findings CBC WITH PLATELETS & Routine 01/09/2018 8:24 AM Encounter for Results for this DIFFERENTIAL CDT routine adult procedure are in health examination the resul ts without abnormal section. findings VITAMIN D DEFICIENCY Routine 01/09/2018 8:24 AM Other fatigue Results for this SCREENING CDT procedure are i n the results section. TSH WITH FREE T4 Routine 01/09/2018 8:24 AM Encounter for Resu lts for this REFLEX CDT routine adult procedure are in health examination the resul ts without abnormal section. findings Other fatigue PROSTATE SPECIFIC Routine 01/09/2018 8:24 AM Encounter for Res ults for this ANTIGEN SCREEN CDT routine adult procedure ar e in health examination the resul ts without abnormal section. findings LIPID REFLEX TO DIRECT Routine 01/09/2018 8:24 AM Encounter fo r Results for this LDL PANEL CDT routine adult procedure are in health examination the resul ts without abnormal section. findings LDL CHOLESTEROL DIRECT Routine 01/09/2018 8:24 AM Encounter fo r Results for this CDT routine adult procedure are in health examination the resul ts without abnormal section. findings COMPREHENSIVE Routine 01/09/2018 8:24 AM Encounter for Results for this METABOLIC PANEL CDT routine adult procedure a re in health examination the resul ts without abnormal section. findings documented in this encounter Results UA with Microscopic reflex to Culture (01/09/2018 8:25 AM CDT) [facility] Method Time Signature Color Urine Yellow 01/09/2018 [place] 9:04 AM CDT [facility] Appearance Urine Clear [facility]/09[facility]2018 [facility] Glucose Urine Negative NEG^Negat 01/09/2018 [place] audra mg/dL 9:04 AM CDT [facility] Bilirubin Urine Negative NEG^Negat 01/09/2018 [facility] audra 9:04 AM CDT [facility] Ketones Urine Negative NEG^Negat 01/09/2018 [place] audra mg/dL 9:04 AM CDT [facility] Specific Campbell 1.010 1.003 - 01/09/2018 [place] Urine 1.035 9:04 AM CDT [facility] pH Urine 6.5 5.0 - 7.0 01/09/2018 [place] pH 9:04 AM CDT [facility] Protein Albumin Negative NEG^Negat 01/09/2018 [place] Urine audra mg/dL 9:04 AM CDT [facility] Urobilinogen 0.2 0.2 - 1.0 01/09/2018 [place] Urine EU/dL 9:04 AM CDT [facility] Nitrite Urine Negative NEG^Negat 01/09/2018 [place] audra 9:04 AM CDT [facility] Blood Urine Negative NEG^Negat 01/09/2018 [place] audra 9:04 AM CDT [facility] Leukocyte Negative NEG^Negat 01/09/2018 [place] Esterase Urine audra 9:04 AM CDT [facility] Source Midstream 01/09/2018 [place] Urine 9:04 AM CDT [facility] WBC Urine 0 - 5 OTO5^0 - 01/09/2018 [place] 5 /HPF 9:04 AM CDT [facility] RBC Urine O - 2 OTO2^O - 01/09/2018 [place] 2 /HPF 9:04 AM CDT [facility] Specimen (Source) Anatomical Collection Method Collection Time Re ceived Time Location / / Volume Laterality Examination of 01/09/2018 8:25 01/09/2018 8:30 midstream urine AM CDT AM CDT specimen (procedure) Leticia Armendariz MD LAB - URINE ORDERABLES Performing Organization Address City/[facility]/ZIP Code Phon e Number [facility] [address] [place] [address] [address] LDL cholesterol direct (01/09/2018 8:24 AM CDT) Analysis Performed At Patho logist Time Signature LDL Cholesterol 75 <100 mg/dL 01/09/2018 [facility] Direct 6:20 PM CDT [facility] Comment: Desirable: <100 mg/dl Specimen Anatomical Collection Method Collection Time Receive d Time (Source) Location / / Volume Laterality 01/09/2018 8:24 AM 8 8:29 CDT AM CDT Leticia Armendariz MD LAB - BLOOD ORDERABLES Performing Organization Address City/[facility]/ZIP Code Phon e Number [facility] [address] [place] [address] PSA, screen (01/09/2018 8:24 AM CDT) P athologist Signature PSA 0.85 0 - 4 ug/L 01/09/2018 [place] 5:22 PM CDT [facility] Comment: Assay Method: Chemiluminescence using Siemens Lufkin analyzer Specimen Anatomical Collection Method Collection Time Receive d Time (Source) Location / / Volume Laterality Blood specimen 01/09/2018 8:24 AM 018 8:29 (specimen) CDT AM CDT Leticia Armendariz MD LAB - BLOOD ORDERABLES Performing Organization Address City/State/ZIP Code Phon e Number [facility] [address] [place] [address] [facility] [address] [place] [address], [place] [phone] Testosterone Free and Total (01/09/2018 8:24 AM CDT) Analysis Performed At Patho logist Time Signature Testosterone 330 240 - 950 01/12/2018 [facility] ng/dL 8:31 AM T [facility] Comment: This test was developed and its performa nce characteristics determined by the [facility], ??Special Chemistry Laboratory. It has not been cleared or approved by the FDA. The laboratory is regulated under CLIA as qualified to perform high-comple xity testing. This test is used for clinical purposes. It should not be rega rded as investigational or for research. Sex Hormone Binding 30 11 - 80 nmol/L 01/09/2018 8:12 PM [facility] Globulin [facility] Free Testosterone 6.92 4.7 - 24.4 ng/dL 01/12/2018 8:31 AM [facility] Calculated [facility] Specimen Anatomical Collection Method Collection Time Receive d Time (Source) Location / / Volume Laterality Blood specimen 01/09/2018 8:24 AM 018 8:29 (specimen) CDT AM CDT Leticia Armendariz MD LAB - BLOOD ORDERABLES Performing Organization Address City/State/ZIP Code Phon e Number [facility] [address] [place] [address] [facility] Vitamin D Deficiency (01/09/2018 8:24 AM CDT) P athologist Signature Vitamin D 24 20 - 75 01/09/2018 [facility] ug/L 7:52 PM CDT [place] [facility] Comment: Season, race, dietary intake, and treatm ent affect the concentration of 38-mnkktpb-Frlcuvv D. Values may decreas e during winter [...] Organization Address City/State/ZIP Code Phon e Number [facility] [address] (ABNORMAL) Comprehensive metabolic panel (01/09/2018 8:24 AM CDT) Analysis Performed At Patho logist Time Signature Sodium 142 133 - 144 01/09/2018 [facility] mmol/L 5:27 PM CDT [facility] Potassium 4.2 3.4 - 5.3 01/09/2018 [facility] mmol/L 5:27 PM CDT [facility] Chloride 108 94 - 109 01/09/2018 [facility] mmol/L 5:27 PM CDT [facility] Carbon Dioxide 25 20 - 32 01/09/2018 [facility] mmol/L 5:27 PM CDT [facility] Anion Gap 9 3 - 14 01/09/2018 [facility] mmol/L 5:27 PM CDT [facility] Glucose 100 (H) 70 - 99 01/09/2018 [place] mg/dL 5:27 PM CDT [facility] Comment: Fasting specimen Urea Nitrogen 9 7 - 30 mg/dL 01/09/2018 5:27 PM CDT [facility] Creatinine 0.87 0.66 - 1.25 mg/dL 01/09/2018 5:27 PM CD T [facility] GFR Estimate >90 >60 mL/min/1.7m2 01/09/2018 5:27 PM C DT [facility] Comment: Non GFR Calc GFR Estimate If >90 >60 mL/min/1.7m2 01/09/2018 5:27 P M [facility] Black T [facility] Comment: GFR Calc Calcium 9.2 8.5 - 10.1 01/09/2018 5:27 PM [facility] mg/dL T [facility] Bilirubin Total 0.8 0.2 - 1.3 mg/dL 01/09/2018 5:27 PM [facility] Albumin 4.2 3.4 - 5.0 g/dL 01/09/2018 5:27 PM [facility] Protein Total 7.5 6.8 - 8.8 g/dL 01/09/2018 5:27 PM [facility] Alkaline Phosphatase 93 40 - 150 U/L 01/09/2018 5:27 PM [facility] ALT 28 0 - 70 U/L 01/09/2018 5:27 PM [facility] T [facility] AST 16 0 - 45 U/L 01/09/2018 5:27 PM [facility] T [facility] Specimen Anatomical Collection Method Collection Time Receive d Time (Source) Location / / Volume Laterality Blood specimen 01/09/2018 8:24 AM 018 8:29 (specimen) CDT AM CDT Leticia Armendariz MD LAB - BLOOD ORDERABLES Performing Organization Address City/State/ZIP Code Phon e Number [facility] [address] [place] [address] TSH with free T4 reflex (01/09/2018 8:24 AM CDT) P athologist Signature TSH 0.66 0.40 - 4.00 01/09/2018 [facility] mU/L 5:27 PM CDT [facility] Specimen Anatomical Collection Method Collection Time Receive d Time (Source) Location / / Volume Laterality Blood specimen 01/09/2018 8:24 AM 018 8:29 (specimen) CDT AM CDT Leticia Armendariz MD LAB - BLOOD ORDERABLES Performing Organization Address City/State/ZIP Code Phon e Number [facility] [address] [place] [address] CBC with platelets differential (01/09/2018 8:24 AM CDT) [facility] gist Method Time Signature WBC 9.0 4.0 - 01/09/2018 [facility] 11.0 9:05 AM CDT [facility]IN[facility] 10e9/L [facility] RBC Count 4.78 4.4 - 5.9 01/09/2018 [place] 10e12/L 9:05 AM CDT [facility] Hemoglobin 14.8 13.3 - 01/09/2018 [place] 17.7 g/dL 9:05 AM CDT [facility] Hematocrit 43.3 40.0 - 01/09/2018 [place] 53.0 % 9:05 AM CDT [facility] MCV 91 78 - 100 01/09/2018 [place] fl 9:05 AM CDT [facility] MCH 31.0 26.5 - 01/09/2018 [place] 33.0 pg 9:05 AM CDT [facility] MCHC 34.2 31.5 - 01/09/2018 [place] 36.5 g/dL 9:05 AM CDT [facility] RDW 12.5 10.0 - 01/09/2018 [place] 15.0 % 9:05 AM CDT [facility] Platelet Count 210 150 - 450 01/09/2018 [place] 10e9/L 9:05 AM CDT [facility] Diff Method Automated 01/09/2018 [place] Method 9:05 AM CDT [facility] % Neutrophils 68.2 % 01/09/2018 [place] 9:05 AM CDT [facility] % Lymphocytes 19.8 % 01/09/2018 [place] 9:05 AM CDT [facility] % Monocytes 9.8 % 01/09/2018 [place] 9:05 AM CDT [facility] % Eosinophils 1.8 % 01/09/2018 [place] 9:05 AM CDT [facility] % Basophils 0.4 % 01/09/2018 [place] 9:05 AM CDT [facility] Absolute 6.2 1.6 - 8.3 01/09/2018 [facility] Neutrophil 10e9/L 9:05 AM CDT [facility] Absolute 1.8 0.8 - 5.3 01/09/2018 [place] Lymphocytes 10e9/L 9:05 AM CDT [facility] Absolute 0.9 0.0 - 1.3 01/09/2018 [place] Monocytes 10e9/L 9:05 AM CDT [facility] Absolute 0.2 0.0 - 0.7 01/09/2018 [place] Eosinophils 10e9/L 9:05 AM CDT [facility] Absolute 0.0 0.0 - 0.2 01/09/2018 [facility] Basophils 10e9/L 9:05 AM CDT [facility] Specimen Anatomical Collection Method Collection Time Receive d Time (Source) Location / / Volume Laterality Blood specimen 01/09/2018 8:24 AM 018 8:29 (specimen) CDT AM CDT Leticia Armendariz MD LAB - BLOOD ORDERABLES Performing Organization Address City/State/ZIP Code Phon e Number [facility] [address] [place], [place] [address] [address] (ABNORMAL) Lipid panel reflex to direct LDL Fasting (01/09/2018 8:24 AM CDT) Analysis Performed At Patho logist Time Signature Cholesterol 198 <200 mg/dL 01/09/2018 [place] 5:27 PM CDT [facility] Triglycerides 548 (H) <150 mg/dL 01/09/2018 [place] 5:27 PM CDT [facility] Comment: Borderline high: ??150-199 mg/dl High: ? 200-499 mg/dl Very high: ? >499 mg/dl Fasting specimen HDL Cholesterol 23 (L) >39 mg/dL 01/09/2018 5:27 [facility] PM CDT [facility] LDL Cholesterol Cannot estimate LDL <100 mg/dL 01/09/2018 5:27 [facility] Calculated when triglyceride PM CDT [place] exceeds 400 mg/dL [facility] Non HDL 175 (H) <130 mg/dL 01/09/2018 5:27 [place] [facility] Cholesterol PM CDT [facility] Comment: Above Desirable: ??130-159 mg/dl Borderline high: ??160-189 mg/dl High: ? 190-219 mg/dl Very high: ? >219 mg/dl Specimen Anatomical Collection Method Collection Time Receive d Time (Source) Location / / Volume Laterality Blood specimen 01/09/2018 8:24 AM 018 8:29 (specimen) CDT AM CDT Leticia Armendariz MD LAB - BLOOD ORDERABLES Performing Organization Address City/State/ZIP Code Phon e Number [facility] [address] [place], [place] [phone] documented in this encounter Visit Diagnoses Diagnosis Encounter for routine adult health exami nation without abnormal findings Other fatigue Dysuria documented in this encounter Additional Health Concerns Assessment Noted Time PHQ-9 Depression Total Score: 12 01/04/2018 7:37 AM CD T documented as of this encounter Care Teams Profiler Hand Relationship Specialty Start Date End Date Leticia Armendariz MD PCP - General Internal Medicine 03/17/15 Leticia Armendariz MD PCP - Assigned PCP 06/30/14 11/07/18 [facility] [address] [place], [place] [phone] Nahum Lemus MD 09/16/16 [place] [facility] [address] [address] Karuna Ramirez MD MD Cardiology 09/16/16 Karime Castro DO Referring Physician Orthopedics 05/13/17 [facility] [address] [facility] [address] [place], [place] [address] Tito Almonte MD MD Orthopedics 05/13/[address] [place] [address] Leticia Armendariz MD Assigned PCP 06/30/14 01/06/19 [facility] [address] [place] [address] documented as of this encounter
--- OUTSIDE RECORDS SUMMARY | 2022-06-25 13:51 | XMS_ITS | Encounter Summary ---
:1965 Author Organization [facility] Address [address] [place] [address] Care Team Providers Name Role Phone Leticia Armendariz MD Primary Care Provider Nahum Lemus MD Unavailable Karuna Ramirez MD Unavailable [phone] Karime Castro DO Unavailable Tito Almonte MD Unavailable Leticia Armendariz MD Unavailable Leticia Armendariz MD Unavailable Reason for Visit Reason Comments Medication Refill Encounter Details Date Type Department Care Team Description 12/24/2017 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 Miscellaneous Notes Telephone Encounter - Joyce Holliday CMA - 12/26/2017 1:43 PM CDT Faxed Ambien rx to [facility] Telephone Encounter - Ayaka Wilson RN - 12/26/2017 7:07 AM CDT Last refill-08/30/17-#30 x1 refill Last OV-03/30/17 documented in this encounter Plan of Treatment Not on filedocumented as of this encounter Visit Diagnoses Diagnosis Primary insomnia Persistent disorder of initiating or adrianne ntaining sleep documented in this encounter Care Teams Supervisor Baking Relationship Specialty Start Date End Date Leticia Armendariz MD PCP - General Internal Medicine 03/17/15 Leticia Armendariz MD PCP - Assigned PCP 06/30/14 11/07/18 [facility] [place] [address] [place], [place] [address] Nahum Lemus MD 09/16/16 [place] [facility] [address] [place] [address] Karuna Ramirez MD MD Cardiology 09/16/16 Karime Castro DO Referring Physician Orthopedics 05/13/17 [facility] [address] [facility] [address] [place], [place] [address] Tito Almonte MD MD Orthopedics 05/13/17 [address] [facility] [address] [place], [place] [phone] Leticia Armendariz MD Assigned PCP 06/30/14 01/06/19 [place] [address] [address], [place] [address] documented as of this encounter
--- OUTSIDE RECORDS SUMMARY | 2022-06-25 13:51 | XMS_ITS | Encounter Summary ---
:1965 Author Organization [facility] Address [address] [place] [address] Care Team Providers Name Role Phone Leticia Armendariz MD Primary Care Provider Nahum Lemus MD Unavailable Karuna Ramirez MD Unavailable [phone] Leticia Armendariz MD Unavailable Leticia Armendariz MD Unavailable Reason for Visit (Routine) - Closed Specialty Diagnoses / Procedures Referred By Contact Refer red To Contact Radiology / Radiology. Diagnoses EPIC ORDER, SB PT. Rh Mri Procedures MR HIP LEFT WO [address] [place] [address] Phone: Fax: Referral ID Status Reason Start Date Expiration Date Visits Requ ested Visits Authorized [id number] Closed 04/29/2017 04/29/2018 1 1 Encounter Details Date Type Department Care Team Description 05/02/2017 [facility] Karime Castro Femoral acetabular impingement; Encounter [facility] Irina, DO Primary osteoarthritis of both hips [address] [facility] [place] [address] [place] [address] [place] [address] [place], [place] [phone] Social History Tobacco Use Types Packs/Day Years Used Date Smoking Tobacco: Every Day Cigarettes Smokeless Tobacco: Never Comments: 1 pack daily Alcohol Use Standard Drinks/Week Comments Yes 0 (1 standard drink = 0.6 oz pure alcoho l) 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 Date Recorded 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 documented in this encounter Results MR Hip Left w/o Contrast (05/02/2017 10:22 AM CDT) Anatomical Region Laterality Modality Left Hip, SUBRAD MR MSK, UMP MR MSK Magn etic Resonance Specimen (Source) Anatomical Location Collection Method / Collectio n Time Received Time / Laterality Volume Impressions 05/02/2017 10:40 AM CDT IMPRESSION: There is a 1.0 cm calcified body within the medial aspect of the left hip joint corresponding to t he abnormality on the recent CT. This likely represents a loose body, although the origin is not identified. SARAH HERNANDEZ MD Narrative 05/02/2017 10:40 AM CDT MR HIP LEFT WITHOUT CONTRAST ?? 05/02/2017 10:22 AM HISTORY: ??Several years of bilateral hi p pain. COMPARISON: A CT of the abdomen and pelv is which included the hips on 04/20/2017. That examination demonstrated a dense calcification or ossification in the medial aspect of the left hip joint. TECHNIQUE: ??Coronal T1 and STIR. Transv erse T1 and T2 fat suppression. Sagittal T1. FINDINGS: Osseous and Cartilaginous Structures: No fracture or osseous lesion is demonstrated. No femoral head osteonecro sis. No abnormal marrow signal intensity is identified. No significant hip osteoarthritis or apparent chondromalacia. Acetabular Labrum: No juxtaacetabular cy st. No obvious labral tear is appreciated, allowing for the large fiel d of view technique. If indicated clinically, MR arthrography wo uld be considered the study of choice to evaluate the labrum. Hip joint space: ??No significant joint effusion. In the medial aspect of the left hip joint, there is a 1.0 cm diameter focus of decreased signal intensity on all pulse sequences. This corresponds to the calcific densities seen on the recent CT . No other intra-articular filling defect is identified. Trochanteric and Iliopsoas Bursae: No fl uid collection in the trochanteric or iliopsoas bursae. Common Hamstring Tendon: No evidence of tear or significant tendinosis. Additional Findings: The muscles are sym metric and demonstrate normal signal intensity. No adjacent soft tissu es pathology is seen. Procedure Note Sarah Hernandez MD - 05/02/2017Fo rmatting of this note might be different from the original. MR HIP LEFT WITHOUT CONTRAST 05/02/2017 1 0:22 AM HISTORY: Several years of bilateral hip pain. COMPARISON: A CT of the abdomen and pelv is which included the hips on 04/20/2017. That examination demonstrated a dense calcification or ossification in the medial aspect of the left hip joint. TECHNIQUE: Coronal T1 and STIR. Transver se T1 and T2 fat suppression. Sagittal T1. FINDINGS: Osseous and Cartilaginous Structures: No fracture or osseous lesion is demonstrated. No femoral head osteonecro sis. No abnormal marrow signal intensity is identified. No significant hip osteoarthritis or apparent chondromalacia. Acetabular Labrum: No juxtaacetabular cy st. No obvious labral tear is appreciated, allowing for the large fiel d of view technique. If indicated clinically, MR arthrography wo uld be considered the study of choice to evaluate the labrum. Hip joint space: No significant joint ef fusion. In the medial aspect of the left hip joint, there is a 1.0 cm diameter focus of decreased signal intensity on all pulse sequences. This corresponds to the calcific densities seen on the recent CT . No other intra-articular filling defect is identified. Trochanteric and Iliopsoas Bursae: No fl uid collection in the trochanteric or iliopsoas bursae. Common Hamstring Tendon: No evidence of tear or significant tendinosis. Additional Findings: The muscles are sym metric and demonstrate normal signal intensity. No adjacent soft tissu es pathology is seen. IMPRESSION: There is a 1.0 cm calcified body within the medial aspect of the left hip joint corresponding to t he abnormality on the recent CT. This likely represents a loose body, although the origin is not identified. 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, pelvic region and thigh documented in this encounter Care Teams Vba Programmer Relationship Specialty Start Date End Date Leticia Armendariz MD PCP - General Internal Medicine 03/17/15 Lteicia Armendariz MD PCP - Assigned PCP 06/30/14 11/07/18 [facility] [address] [place] [address] Nahum Lemus MD 09/16/16 [place] [facility] [address] [facility] [place] [address] Karuna Ramirez MD MD Cardiology 09/16/16 Leticia Armendariz MD Assigned PCP 06/30/14 01/06/19 [place] [address] [place] [address] documented as of this encounter
--- OUTSIDE RECORDS SUMMARY | 2022-06-25 13:51 | XMS_ITS | Encounter Summary ---
:1965 Author Organization [place] Address [address] [facility] [place] [address] Care Team Providers Name Role Phone Leticia Armendariz MD Primary Care Provider Nahum Lemus MD Unavailable Karuna Ramirez MD Unavailable [phone] Karime Castro DO Unavailable Tito Almonte MD Unavailable Leticia Armendariz MD Unavailable Leticia Armendariz MD Unavailable Reason for Visit Reason Comments Other post void dysuria Consultation - Closed Specialty Diagnoses / Procedures Referred By Contact Refer red To Contact Diagnoses Dysuria Leticia Armendariz MD [facility] UROLOGY-REF'L (aka [facility] Urologic Physician) [address] [place] [address] [address] [facility] [address] [place] [address] [place] [address] Phone: [phone] Referral ID Status Reason Start Date Expiration Date Visits Requ ested Visits Authorized [id number] Closed 01/03/2018 01/03/2019 1 1 Encounter Details Date Type Department Care Team Description 01/04/2018 Office Visit [facility] Angy Feliciano Dysuri a (Primary Dx) [facility] PAAlvaro [place] [address] [place] [address] [place], [place] [phone] [address] (Work) [phone] Social History Tobacco Use Types Packs/Day Years Used Date Smoking Tobacco: Every Day Cigarettes Smokeless Tobacco: Never Comments: 1 pack daily Alcohol Use Standard Drinks/Week Comments Yes 0 (1 standard drink = 0.6 oz pure alcoho l) 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 Date Recorded 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 Flomax as prescribed for men with difficulty urinating due to a benign prostatic enlargement. Hopefully, you will see improvement in urinary stream in the next 10-14 days. Common side effects include: Weakness or fatigue Blurred vision Sinus congestion or runny nose Dizziness or lightheadedness Decrease our lack of ejaculation documented in this encounter Progress Notes Angy Feliciano PA-C - 01/04/2018 3:00 PM CDT January 04, 2018 CC: Intermittent dysuria HPI: Feng Perez is a 52 year old male who presents via referral from Dr. Armendariz for the above. Also having weak stream, hesitancy, dribbling. Had Flomax post op 4 yrs ago due to retention after neck fusion. Takes longer to empty. Can have perineal and SP pain post void. Nocturia x 1-3. Hx of steroid abuse. Plans to have Testosterone and PSA drawn tomorrow. Past Medical History: Diagnosis Date ??? A-fib [...] MD; Location: [facility] ??? GENITOURINARY SURGERY vasectomy Social History Social History ??? Marital status: Spouse name: N/A ??? Number of children: 2 ??? Years of education: N/A Occupational History ??? [employer] Social History Main Topics ??? Smoking [...] work is physical Social History Narrative Family History Problem Relation Age of Onset ??? Arthritis Mother ??? Circulatory Father ??? C.A.D. Maternal Grandmother ??? C.A.D. Paternal Grandmother ??? Coronary Artery Disease No family hx of ??? Breast Cancer No family hx of ??? Colon Cancer No family hx of ??? Prostate Cancer No family hx of ROS:14 point ROS neg other than the symptoms noted above in the HPI. No Known Allergies Current Outpatient Prescriptions Medication ??? amLODIPine (NORVASC) 5 MG tablet ??? dicyclomine (BENTYL) 10 MG capsule ??? losartan (COZAAR) 50 MG tablet ??? omeprazole (PRILOSEC) 20 MG CR capsule ??? zolpidem (AMBIEN) 10 MG tablet No current facility-administered medications for this visit. PEx: Pulse 82, height 1.778 m (5' 10), weight 94.8 kg (209 lb), SpO2 96 %. 5' 10, Body mass index is 29.99 kg/(m^2)., 209 lbs 0 oz Gen appearance: Well groomed,: age-appropriate appearing male in NAD. HEENT: EOMI, AT NC, CN grossly normal Psych: alert , comfortable in no acute distress Neuro: A/O X 3 Skin: Warm to touch, clear of rashes, ecchymoses Resp: No increased respiratory effort lymph: No LE edema Abd: Soft/NT, ND, no palpable masses, no CVAT Back: bony spine is non-tender, flanks are nontender MAICO: Defer due to PSA draw Urine:Neg PVR: 19cc A/P: Feng Perez is a 52 year old male with BPH with LUTS symptoms Trial of Flomax. If continues to have abdominal pain, would move on to CT. If testosterone levels are low, would recommend Endocrinology consult. RTO 3 months. Will need MAICO. Angy Feliciano PA-C [facility] 30 minutes were spent with the patient today, > 50% in counseling and coordination of care documented in this encounter Nursing Notes Amandeep Johnson CMA - 01/04/2018 3:00 PM CDT Pt has bad hips. Pt states he has pain after he voids. Pt will have blood work on Tuesday. Pt saw [facility] yesterday. Pt drinks coffee... A lot of coffee. Romel Johnson CMA Amandeep Johnson CMA - 01/04/2018 3:00 PM CDT Pvr=19 D. LEYDI Johnson documented in this encounter Plan of Treatment Not on filedocumented as of this encounter Procedures Procedure Name Priority Date/Time Associated Comments Diagnosis URINE MACROSCOPIC Routine 01/04/2018 3:31 PM Dysuria Resu lts for this ONLY CDT procedure are i n the results section. HC MEASURE POST-VOID Routine 01/04/2018 3:23 PM Dysuria RESIDUAL CDT URINE/BLADDER CAPACITY, US NON-IMAGING BLADDER SCAN Routine 01/04/2018 Dysuria Results for thi s procedure are i n the results section. documented in this encounter Results UA without Microscopic (01/04/2018 3:31 PM CDT) [facility] Method Time Signature Color Urine Yellow 01/04/2018 [facility] 3:39 PM CDT [facility] Appearance Urine Clear 01/04/2018 [facility] 3:39 PM CDT [facility] Glucose Urine Negative NEG^Negat 01/04/2018 [facility] audra mg/dL 3:39 PM CDT [facility] Bilirubin Urine Negative NEG^Negat 01/04/2018 [facility]ra 3:39 PM CDT [facility] Ketones Urine Negative NEG^Negat 01/04/2018 [facility]ra mg/dL 3:39 PM CDT [facility] Specific [place] 1.015 1.003 - 01/04/2018 [facility] Urine 1.035 3:39 PM CDT [facility] Blood Urine Negative NEG^Negat 01/04/2018 [facility] audra 3:39 PM CDT [facility] pH Urine 5.5 5.0 - 7.0 01/04/2018 [facility] pH 3:39 PM CDT [facility] Protein Albumin Negative NEG^Negat 01/04/2018 [facility] Urine audra mg/dL 3:39 PM CDT [facility] Urobilinogen 0.2 0.2 - 1.0 01/04/2018 [facility] Urine EU/dL 3:39 PM CDT [facility] Nitrite Urine Negative NEG^Negat 01/04/2018 [facility] audra 3:39 PM CDT [facility] Leukocyte Negative NEG^Negat 01/04/2018 [facility] Esterase Urine audra 3:39 PM CDT [facility] Source Midstream 01/04/2018 [facility] Urine 3:39 PM CDT [facility] Specimen (Source) Anatomical Collection Method Collection Time Re ceived Time Location / / Volume Laterality Examination of 01/04/2018 3:31 01/04/2018 3:32 midstream urine PM CDT PM CDT specimen (procedure) Angy Feliciano PA-C LAB - URINE ORDERABLES Performing Organization Address City/State/ZIP Code Phon e Number [facility] [address] [place] [phone] [facility] [address] Bladder scan (01/04/2018) P athologist Signature Residual Volume 19 (RV) (External) Angy Feliciano PA-C IP NURSING GI/ documented in this encounter Visit Diagnoses Diagnosis Dysuria - Primary documented in this encounter Additional Health Concerns Assessment Noted Time PHQ-9 Depression Total Score: 12 01/04/2018 7:37 AM CD T documented as of this encounter Care Teams Hazardous Materials Waste Technician Relationship Specialty Start Date End Date Leticia Armendariz MD PCP - General Internal Medicine 03/17/15 Leticia Armendariz MD PCP - Assigned PCP 06/30/14 11/07/18 [facility] [address] [place] [address] [id number] Nahum Lemus MD 09/16/16 [place] [facility] [address] [facility] [place] [phone] Karuna Ramirez MD MD Cardiology 09/16/16 Karime Castro DO Referring Physician Orthopedics 05/13/17 [facility] [address] [facility] [address] [place], [place] [phone] Tito Almonte MD MD Orthopedics 05/13/17 [address] [facility] [address] [place], [place] [phone] Leticia Armendariz MD Assigned PCP 06/30/14 01/06/19 [facility] [address] [id number] documented as of this encounter
--- OUTSIDE RECORDS SUMMARY | 2022-06-25 13:52 | XMS_ITS | Encounter Summary ---
:1965 Author Organization [place] Address [address] [facility] [place] [address] Care Team Providers Name Role Phone Leticia Armendariz MD Primary Care Provider Nahum Lemus MD Unavailable Karuna Ramirez MD Unavailable [phone] Leticia Armendariz MD Unavailable Leticia Armendariz MD Unavailable Reason for Visit Reason Onset Date Comments Patient/info Update 12/15/2016 Post [facility] Encounter Details Date Type Department Care Team Description 12/15/2016 [facility] Erendira Schmidt MD Patient/info Update [facility] [id number] [place] [address] (Post [place]AT[facility]) [address], [place] [address] [place] [address] [place] [address] Social History Tobacco Use Types Packs/Day Years Used Date Smoking Tobacco: Every Day Cigarettes Smokeless Tobacco: Never Comments: 1 pack daily Alcohol Use Standard Drinks/Week Comments Yes 0 (1 standard drink = 0.6 oz pure alcoho l) 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 Date 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 Called patient for an update. Pt reported the following details: Patient states that he is not feeling any pain relief at this time. States it took 2 weeks last time for the steroid to kick in. Told patient that the information will be forwarded to her provider. Also explained that, if a steroid medication was used, it could take up to 14 days to feel the full effect and if pt has any further questions or concerns pt should call the nurse line at [phone]. Mirian Carson(R) documented in this encounter Plan of Treatment Not on filedocumented as of this encounter Visit Diagnoses Not on filedocumented in this encounter Care Teams Airport Planner Relationship Specialty Start Date End Date Leticia Armendariz MD PCP - General Internal Medicine 03/17/15 Leticia Armendariz MD PCP - Assigned PCP 06/30/14 11/07/18 [employer] [facility] [address] [place] [address] Nahum Lemus MD 09/16/16 [place] [facility] [address] [facility] [place] [phone] Karuna Ramirez MD MD Cardiology 09/16/16 Leticia Armendariz MD Assigned PCP 06/30/14 01/06/19 [employer] [facility] [address] [place] [address] documented as of this encounter
--- OUTSIDE RECORDS SUMMARY | 2022-06-25 13:52 | XMS_ITS | Encounter Summary ---
:1965 Author Organization [place] Address [address] [place] [address] Care Team Providers Name Role Phone Leticia Armendariz MD Primary Care Provider Nahum Lemus MD Unavailable Karuna Ramirez MD Unavailable [phone] Leticia Armendariz MD Unavailable Leticia Armendariz MD Unavailable Reason for Visit Reason Comments Medication Refill Encounter Details Date Type Department Care Team Description [facility] Medication Refill Tamms MD [address] [place] [address] [address] [phone] [place], [place] [address] (Wo rk) Social History Tobacco Use Types Packs/Day Years Used Date Smoking Tobacco: Every Day Cigarettes Smokeless Tobacco: Never Comments: 1 pack daily Alcohol Use Standard Drinks/Week Comments Yes 0 (1 standard drink = 0.6 oz pure alcoho l) 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 Date 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 Miscellaneous Notes Telephone Encounter - Ayaka Wilson RN - 03/31/2017 10:52 AM CDT Pt can transfer rx documented in this encounter Plan of Treatment Not on filedocumented as of this encounter Visit Diagnoses Diagnosis Atrial fibrillation status post cardiove rsion documented in this encounter Care Teams Group Cio Relationship Specialty Start Date End Date Leticia Armendariz MD PCP - General Internal Medicine 03/17/15 Leticia Armendariz MD PCP - Assigned PCP 06/30/14 11/07/18 [employer] [address] [place] [phone] Nahum Lemus MD 09/16/16 [place] [facility] [address] [facility] [address] [place] [phone] Karuna Ramirez MD MD Cardiology 09/16/16 Leticai Armendariz MD Assigned PCP 06/30/14 01/06/19 [employer] [address] [place] [address] documented as of this encounter
--- OUTSIDE RECORDS SUMMARY | 2022-06-25 13:52 | XMS_ITS | Encounter Summary ---
:1965 Author Organization [place] Address [address] [place] [address] Care Team Providers Name Role Phone Leticia Armendariz MD Primary Care Provider Nahum Lemus MD Unavailable Karuna Ramirez MD Unavailable [phone] Leticia Armendariz MD Unavailable Leticia Armendariz MD Unavailable Reason for Visit Reason Comments Medication Refill lOSARTAN Encounter Details Date Type Department Care Team Description 01/04/2017 Refill [facility] Leticia Armendariz Medication Refill Demarco Bender MD (lOSARTAN) [address] [facility] [address] [place] [phone] [id number] Social History Tobacco Use Types Packs/Day Years Used Date Smoking Tobacco: Every Day Cigarettes Smokeless Tobacco: Never Comments: 1 pack daily Alcohol Use Standard Drinks/Week Comments Yes 0 (1 standard drink = 0.6 oz pure alcoho l) 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 Date 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 in [place] Telephone Encounter - Karen Templeton - 01/04/2017 9:24 AM CDT Losartan Last Written Prescription Date: 09/23/16 Last Fill Quantity: 90, # refills: 2 (shouldn't need yet) Last Office Visit with [facility], [facility] or [facility] prescribing provider: 08/02/16 Potassium Date Value Ref Range Status 08/02/2016 4.1 3.4 - 5.3 mmol/L Final Creatinine Date Value Ref Range Status 08/02/2016 0.89 0.66 - 1.25 mg/dL Final BP Readings from Last 3 Encounters: 12/08/16 121/81 08/20/16 114/77 08/02/16 138/68 documented in this encounter Plan of Treatment Not on filedocumented as of this encounter Visit Diagnoses Diagnosis Atrial fibrillation status post cardiove rsion documented in this encounter Care Teams Warehouse Worker 2Nd Shift Relationship Specialty Start Date End Date Leticia Armendariz MD PCP - General Internal Medicine 03/17/15 Leticia Armendariz MD PCP - Assigned PCP 06/30/14 11/07/[address] [address] Nahum Lemus MD 09/16/16 [place] [facility] [address] [facility] [place] [address] Karuna Ramirez MD MD Cardiology 09/16/16 Leticia Armendariz MD Assigned PCP 06/30/14 01/06/[address] [address] documented as of this encounter
--- OUTSIDE RECORDS SUMMARY | 2022-06-25 13:52 | XMS_ITS | Encounter Summary ---
:1965 Author Organization [place] Address [address] [place] [address] Care Team Providers Name Role Phone Leticia Armendariz MD Primary Care Provider Nahum Lemus MD Unavailable Karuna Ramirez MD Unavailable [phone] Leticia Armendariz MD Unavailable Leticia Armendariz MD Unavailable Reason for Visit Reason Comments Medication Refill Encounter Details Date Type Department Care Team Description 12/14/2016 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 Miscellaneous Notes Telephone Encounter - Ayaka Wilson RN - 12/14/2016 10:26 AM CDT Not needed documented in this encounter Plan of Treatment Not on filedocumented as of this encounter Visit Diagnoses Diagnosis Atrial fibrillation status post cardiove rsion documented in this encounter Care Teams Operations Support Manager Relationship Specialty Start Date End Date Leticia Armendariz MD PCP - General Internal Medicine 03/17/15 Leticia Armendariz MD PCP - Assigned PCP 06/30/14 [facility] [address] [place] [phone] Nahum Lemus MD 09/16/16 [place] [facility] [address] [facility] [address] [place] [phone] Karuna Ramirez MD MD Cardiology 09/16/16 Leticia Armendariz MD Assigned PCP 06/30/14 01/06/19 [employer] [address] [address] documented as of this encounter
--- OUTSIDE RECORDS SUMMARY | 2022-06-25 13:52 | XMS_ITS | Encounter Summary ---
:1965 Author Organization [place] Address [address] [place] [address] Care Team Providers Name Role Phone Leticia Armendariz MD Primary Care Provider Nahum Lemus MD Unavailable Karuna Ramirez MD Unavailable [phone] Leticia Armendariz MD Unavailable Leticia Armendariz MD Unavailable Reason for Visit Reason Comments Other records received from [facility] and sent for scanning. 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 Plan of Treatment Not on filedocumented as of this encounter Visit Diagnoses Not on filedocumented in this encounter Care Teams Parachute Folder Relationship Specialty Start Date End Date Leticia Armendariz MD PCP - General Internal Medicine 03/17/15 Leticia Armendariz MD PCP - Assigned PCP 06/30/14 11/07/18 [facility] [address] [place] [address] Nahum Lemus MD 09/16/16 [place] [facility] [address] [facility] [place] [address] Karuna Ramirez MD MD Cardiology 09/16/16 Leticia Armendariz MD Assigned PCP 06/30/14 01/06/19 [facility] [address] [place] [address] documented as of this encounter
--- OUTSIDE RECORDS SUMMARY | 2022-06-25 13:52 | XMS_ITS | Encounter Summary ---
:1965 Author Organization [place] Address [address] [place] [address] Care Team Providers Name Role Phone Leticia Armendariz MD Primary Care Provider Nahum Lemus MD Unavailable Karuna Ramirez MD Unavailable [phone] Leticia Armendariz MD Unavailable Leticia Armendariz MD Unavailable Reason for Referral Consultation - Closed Specialty Diagnoses / Procedures Referred By Contact Refer red To Contact Orthopedics and Sports Diagnoses Arthralgia of hip, unspecified laterality [facility] C[facility] Bender MD OR[facility]OPEDIC CLINIC [facility]?? [address] [place] [address] [address] [place] [address] Phone: Fax: Referral ID Status Reason Start Date Expiration Date Visits Requ ested Visits Authorized [id number] Closed 04/26/2017 04/26/2018 1 1 Reason for Visit Reason Onset Date Comments CT Results 04/26/2017 Encounter Details Date Type Department Care Team Description 04/26/2017 [facility] Leticia Wilson MD CT Results [place] [address] [place] [phone] [place] [address] [phone] (Wo rk) Social History Tobacco Use Types Packs/Day Years Used Date Smoking Tobacco: Every Day Cigarettes Smokeless Tobacco: Never Comments: 1 pack daily Alcohol Use Standard Drinks/Week Comments Yes 0 (1 standard drink = 0.6 oz pure alcoho l) 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 Date Recorded 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 Informed pt that CT of abdomen was normal, but they did see a bony fragment in left hip. Pt advised to follow up with Ortho if having groin or hip pain. Dr. Armendariz placed referral to [facility] if needed. Pt states he does have intermittent pain in left groin, recommended he make an appt when [facility] calls. Pt verbalizes understanding. Telephone Encounter - Mary Pan RN - 04/26/2017 2:02 PM CDT Attempted to contact pt. Left voice message to call back. Telephone Encounter - Leticia Armendariz MD - 04/26/2017 1:[address] scan of the abdomen is normal. There is a bony fragment in his left hip seen. Recommend following up with ortho for this if he is having pain in his groin or hip. Telephone Encounter - Mary Pan RN - 04/26/2017 10:50 AM CDT Pt left voice message at [phone]. He had CT scan done last Tuesday and was told to call our office ifhe did not receive results by 04/25. Pt requesting a call back with results No result notes recorded by provider, sent to PCP to review. documented in this encounter Plan of Treatment Not on filedocumented as of this encounter Visit Diagnoses Diagnosis Arthralgia of hip, unspecified lateralit y - Primary documented in this encounter Care Teams Natural Resources Manager Relationship Specialty Start Date End Date Leticia Armendariz MD PCP - General Internal Medicine 03/17/15 Leticia Armenadriz MD PCP - Assigned PCP 06/30/14 11/07/18 [employer] [address] [place] [id number] Nahum Lemus MD 09/16/16 [place] [facility] [address] [facility] [place] [address] Karuna Ramirez MD MD Cardiology 09/16/16 Leticia Armendariz MD Assigned PCP 06/30/14 01/06/19 [employer] [address] [place] [address] documented as of this encounter
--- OUTSIDE RECORDS SUMMARY | 2022-06-25 13:52 | XMS_ITS | Encounter Summary ---
:1965 Author Organization [facility] Address [address] [place] [address] Care Team Providers Name Role Phone Leticia Armendariz MD Primary Care Provider Leticia Armendariz MD Unavailable Leticia Armendariz MD Unavailable Reason for Visit Reason Onset Date Comments Previsit 08/19/2016 Encounter Details Date Type Department Care Team Description 08/19/2016 PRE VISIT [facility] Isai Ramirez, Previsit [facility] MD [facility] [place] [place] [address] [place] [address] (Wo rk) Social History Tobacco Use Types Packs/Day Years Used Date Smoking Tobacco: Every Day Cigarettes Smokeless Tobacco: Never Comments: 1/4 pack per day - quit date e of summer Alcohol Use Standard Drinks/Week Comments No 0 (1 standard drink = 0.6 oz pure alcoho l) 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 Date Recorded 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
--- OUTSIDE RECORDS SUMMARY | 2022-06-25 13:52 | XMS_ITS | Encounter Summary ---
:1965 Author Organization [facility] Address [address] [place] [address] Care Team Providers Name Role Phone Leticia Armendariz MD Primary Care Provider Nahum Lemus MD Unavailable Karuna Ramriez MD Unavailable [phone] Leticia Armendariz MD Unavailable Leticia Armendariz MD Unavailable Reason for Visit (Routine) - Closed Specialty Diagnoses / Procedures Referred By Contact Refer red To Contact Radiology / Radiology. Diagnoses Epic Order, SB PT Rh [place]ri [place] [address] [address] [place] [address] Phone: Fax: Referral ID Status Reason Start Date Expiration Date Visits Requ ested Visits Authorized [id number] Closed 02/04/2017 02/01/2018 1 1 Encounter Details Date Type Department Care Team Description 02/04/2017 Hospital Encounter [facility] Jasmin Yu rvical radicular [facility] Ian, PIE BAKER BLINTZE ROLLER pain [address] [facility] [address] ORTHOPEDICS [place], [place] [address] [address] [address] [place] [address] Social History Tobacco Use Types Packs/Day Years Used Date Smoking Tobacco: Every Day Cigarettes Smokeless Tobacco: Never Comments: 1 pack daily Alcohol Use Standard Drinks/Week Comments Yes 0 (1 standard drink = 0.6 oz pure alcoho l) 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 Date Recorded 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 documented 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 encounter Medications at Time of Discharge Medication Sig Dispensed Refills Start Date End Date omeprazole (PRILOSEC) 20 Take 20 mg by mouth 0 MG CR capsule daily amLODIPine (NORVASC) 5 MG Take 1 tablet (5 90 tablet 2 09/0510/13/2017 tabletIndications: Atrial mg) by mouth daily fibrillation status post cardioversion (H) aspirin 81 MG EC Take 2 tablets (162 30 tablet 0 08/20/2016 01/03/2018 tabletIndications: Chest mg) by mouth daily pain, unspecified type, Atrial fibrillation status post cardioversion (H) losartan (COZAAR) 50 MG Take 1 tablet (50 90 tablet 2 09/2310/03/2017 tabletIndications: Atrial mg) by mouth daily fibrillation status post cardioversion (H) zolpidem (AMBIEN) 5 MG TAKE ONE TABLET BY 30 tablet 0 01/2403/19/2017 tabletIndications: Primary MOUTH NIGHTLY insomnia NEEDED FOR SLEEP. documented as of this encounter Plan of Treatment Not on filedocumented as of this encounter Procedures Procedure Name Priority Date/Time Associated Diagnosis Comme [facility] MR CERVICAL SPINE Routine 02/04/2017 6:27 PM Cervical radicula r Results for this W/O CONTRAST CDT pain procedure are i n the results section. documented in this encounter Results MR Cervical Spine w/o Contrast (02/04/2017 6:27 PM CDT) Anatomical Region Laterality Modality Spine, SUBRAD MR NEURO, P MR SPINE Mag netic Resonance Specimen (Source) Anatomical Location Collection Method / Collectio n Time Received Time / Laterality Volume Impressions 02/04/2017 10:20 PM CDT IMPRESSION: 1. Fusion hardware in good position C5-C 6 and without interval change. 2. Mild degenerative changes elsewhere i n the cervical spine as described. 3. No interval change. 4. No cord abnormality through T2. 5. Moderate foraminal stenosis at C3-C4 on the left. DENILSON LUCERO MD Narrative 02/04/2017 10:20 PM CDT MR CERVICAL SPINE WITHOUT CONTRAST 02/04/2017 6:27 PM HISTORY: Midline neck and left arm pain. COMPARISON: MR 05/21/2016. TECHNIQUE: MR cervical spine through mid T2. FINDINGS: Normal alignment through mid T 2. Anterior fusion hardware C5-C6 appears to be in good position and is unchanged in the interval. Cervical and upper thoracic spinal cord appear intrinsically normal. Craniocervical junction region is normal . Vertebral body bone marrow signal is normal removed from the fusion sites. Findings by level as follows: C2-C3: Negative. C3-C4: Mild disc osteophyte complex. Min imal uncinate spurs. No significant central stenosis. Moderate f oraminal stenosis on the left. C4-C5: Tiny central disc protrusion. No central or lateral stenosis. Minimal bilateral facet joint disease. C5-C6: Anterior fusion with plates and p edicle screws in good position. No central or lateral stenosis . No interval change. C6-C7: Negative. C7-T1: Negative. Procedure Note Denilson Lucero MD - 02/04/2017Forma tting of this note might be different from the original. MR CERVICAL SPINE WITHOUT CONTRAST 017 6:27 PM HISTORY: Midline neck and left arm pain. COMPARISON: MR 05/21/2016. TECHNIQUE: MR cervical spine through mid T2. FINDINGS: Normal alignment through mid T 2. Anterior fusion hardware C5-C6 appears to be in good position and is unchanged in the interval. Cervical and upper thoracic spinal cord appear intrinsically normal. Craniocervical junction region is normal . Vertebral body bone marrow signal is normal removed from the fusion sites. Findings by level as follows: C2-C3: Negative. C3-C4: Mild disc osteophyte complex. Min imal uncinate spurs. No significant central stenosis. Moderate f oraminal stenosis on the left. C4-C5: Tiny central disc protrusion. No central or lateral stenosis. Minimal bilateral facet joint disease. C5-C6: Anterior fusion with plates and p edicle screws in good position. No central or lateral stenosis . No interval change. C6-C7: Negative. C7-T1: Negative. IMPRESSION: 1. Fusion hardware in good position C5-C 6 and without interval change. 2. Mild degenerative changes elsewhere i n the cervical spine as described. 3. No interval change. 4. No cord abnormality through T2. 5. Moderate foraminal stenosis at C3-C4 on the left. DENILSON LUCERO MD Jasmin Ian Yu PIE BAKER BLINTZE ROLLER IMG MRI ORDERABLES documented in this encounter Visit Diagnoses Diagnosis Cervical radicular pain Brachial neuritis or radiculitis nos documented in this encounter Care Teams Contour Grinder Relationship Specialty Start Date End Date Leticia Armendariz MD PCP - General Internal Medicine 03/17/15 Leticia Armendariz MD PCP - Assigned PCP 06/30/14 11/07/18 [facility] [address] [id number] Nahum Lemus MD 09/16/16 [facility] [address] [place] [id number] Karuna Ramirez MD MD Cardiology 09/16/16 Leticia Armendariz MD Assigned PCP 06/30/14 [facility] [address] [place] [address] documented as of this encounter
--- OUTSIDE RECORDS SUMMARY | 2022-06-25 13:52 | XMS_ITS | Encounter Summary ---
:1965 Author Organization [facility] Address [address] [place] [address] Care Team Providers Name Role Phone Leticia Armendariz MD Primary Care Provider Nahum Lemus MD Unavailable Karuna Ramirez MD Unavailable [phone] Leticia Armendariz MD Unavailable Leticia Armendariz MD Unavailable Reason for Visit Reason Onset Date Comments Diarrhea 04/08/2017 Encounter Details Date Type Department Care Team Description 04/08/2017 Telephone [facility] Leticia Wilson MD [address] [address] [place] [address] (Wo rk) Social History Tobacco Use Types Packs/Day Years Used Date Smoking Tobacco: Every Day Cigarettes Smokeless Tobacco: Never Comments: 1 pack daily Alcohol Use Standard Drinks/Week Comments Yes 0 (1 standard drink = 0.6 oz pure alcoho l) 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 Date Recorded 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 Advised pt to have CT scan done with labs prior to CT scan. Pt scheduled lab appt for 04/12, he is advised to reschedule for soonerappt if he can get CT done sooner. Pt verbalizes understanding. Call transferred to Radiology to schedule appt for CT scan. Telephone Encounter - Leticia Armendariz MD - 04/08/2017 1:10 PM CDT If he is still worker helper in LLQ when he presses, would recommend a CT scan of ab/pelvis to confirm diverticulitis. CT scan ordered incase patient still having symptoms Would also like labs prior (they will need an updated kidney function, and I would want a CBC too) Telephone Encounter - Mary Pan RN - 04/08/2017 10:49 AM CDT Pt calls, he saw Dr. Armendariz for appt last week and discussed diarrhea and abdominal pain. Pain had improved at time of visit, but he was still having diarrhea. Pt states that she discussed antibiotics, but wanted him to monitor symptoms since the pain was gone. Pt was told to follow up if symptoms c ontinued. Pt states that he has continued to have loose stools after every meal and feeling tired. Denies abdominal pain, fevers or chills. He gets temporary relief with Pepto-Bismol, but the symptoms come back about 24 hours later. He has tried decreasing fiber in diet and drinking extra water. Pt asks if he can get antibiotic or if Dr. Armendariz needs to see him for follow up. documented in this encounter Plan of Treatment Not on filedocumented as of this encounter Results CT Abdomen Pelvis w Contrast (04/20/2017 9:53 AM CDT) Anatomical Region Laterality Modality Abdomen/Pelvis, SUBRAD CT BODY, UMP CT ABDOMEN PELVIS Computed Tomography Specimen (Source) Anatomical Location Collection Method / Collectio n Time Received Time / Laterality Volume Impressions 04/20/2017 11:35 AM CDT IMPRESSION: 1. No evidence of bowel obstruction, div erticulitis or appendicitis. No urinary tract calculi are appreciated . Simple right renal cyst is noted. Abdominal and pelvic organs are o therwise within normal limits. 2. Well-corticated bony fragment in the left acetabulum. No obvious donor site but probably from old cartila ginous injury. Followup as clinically warranted. JEREMIAS ORTEZ MD Narrative 04/20/2017 11:[address] ABDOMEN AND PELVIS WITH CONTRAST ??04/20/2017 9:53 AM HISTORY: Left lower quadrant pain and di arrhea. TECHNIQUE: Axial images from the lung ba ses to the symphysis are performed with additional coronal reform atted images. 100 mL of Isovue 370 are given intravenously. ??Radiation dose for this scan was reduced using automated exposure control, adjust ment of the mA and/or kV according to patient size, or iterative reconstruction technique. Oral contrast is also given. FINDINGS: The lung bases are clear. Abdomen: The upper abdominal organs are within normal limits including the liver, spleen, gallbladder, pancreas , adrenal glands and kidneys. Simple-appearing cyst is present in the posterior lower pole right kidney on image 35 measuring 1.5 cm in d iameter. No enlarged abdominal lymph nodes. The bowel is normal in jesus yana without obstruction or diverticulitis. Appendix is normal. Pelvis: The bladder, prostate and rectum are unremarkable. No enlarged pelvic lymph nodes or free fluid. Mild d egenerative spine changes are present. No aggressive-appearing bone le sions are noted. Small well-corticated bone fragment is noted i n the left acetabulum on series 2, image 71 and image 83 of serie s 3 measuring approximately 1 cm in diameter. Procedure Note Jeremias Ortez MD - 04/20/2017Form atting of this note might be different from the original. CT ABDOMEN AND PELVIS WITH CONTRAST 04/20 9:53 AM HISTORY: Left lower quadrant pain and di arrhea. TECHNIQUE: Axial images from the lung ba ses to the symphysis are performed with additional coronal reform atted images. 100 mL of Isovue 370 are given intravenously. Radiation d ose for this scan was reduced using automated exposure control, adjust ment of the mA and/or kV according to patient size, or iterative reconstruction technique. Oral contrast is also given. FINDINGS: The lung bases are clear. Abdomen: The upper abdominal organs are within normal limits including the liver, spleen, gallbladder, pancreas , adrenal glands and kidneys. Simple-appearing cyst is present in the posterior lower pole right kidney on image 35 measuring 1.5 cm in d iameter. No enlarged abdominal lymph nodes. The bowel is normal in jesus yana without obstruction or diverticulitis. Appendix is normal. Pelvis: The bladder, prostate and rectum are unremarkable. No enlarged pelvic lymph nodes or free fluid. Mild d egenerative spine changes are present. No aggressive-appearing bone le sions are noted. Small well-corticated bone fragment is noted i n the left acetabulum on series 2, image 71 and image 83 of serie s 3 measuring approximately 1 cm in diameter. IMPRESSION: 1. No evidence of bowel obstruction, div erticulitis or appendicitis. No urinary tract calculi are appreciated . Simple right renal cyst is noted. Abdominal and pelvic organs are o therwise within normal limits. 2. Well-corticated bony fragment in the left acetabulum. No obvious donor site but probably from old cartila ginous injury. Followup as clinically warranted. JEREMIAS ORTEZ MD Leticia Armendariz MD IMG CT ORDERABLES documented in this encounter Visit Diagnoses Diagnosis LLQ abdominal pain - Primary Abdominal pain, left lower quadrant LLQ abdominal pain Abdominal pain, left lower quadrant documented in this encounter Care Teams Incubator Tender Relationship Specialty Start Date End Date Leticia Armendariz MD PCP - General Internal Medicine 03/17/15 Leticia Armendariz MD PCP - Assigned PCP 06/30/14 11/07/18 [facility] [address] [place] [address] Nahum Lemus MD 09/16/16 [facility] [address] [facility] [place] [address] Karuna Ramirez MD MD Cardiology 09/16/16 Leticia Armendariz MD Assigned PCP 06/30/14 01/06/19 [place] [address] [address], [place] [address] documented as of this encounter
--- OUTSIDE RECORDS SUMMARY | 2022-06-25 13:52 | XMS_ITS | Encounter Summary ---
:1965 Author Organization [facility] Address [address] [place] [address] Care Team Providers Name Role Phone Leticia Armendariz MD Primary Care Provider Nahum Lemus MD Unavailable Karuna Ramirez MD Unavailable [phone] Leticia Armendariz MD Unavailable Leticia Armendariz MD Unavailable Reason for Referral - Closed Specialty Diagnoses / Procedures Referred By Contact Refer red To Contact Diagnoses Cervical radicular pain Umang Sandoval MD [facility] [address] [place] [address] Referral ID Status Reason Start Date Expiration Date Visits Requ ested Visits Authorized [id number] Closed 11/15/2016 11/15/2017 1 1 Reason for Visit Reason Onset Date Comments other 11/15/2016 Injection order Encounter Details Date Type Department Care Team Description 11/15/2016 Telephone [facility] Umang Sandoval other (Injection [facility] MD Ramon order) [address] ORTHOPEDICS [facility] [address] [place] [address] [place], [place] [id number] (Wo rk) Social History Tobacco Use Types Packs/Day Years Used Date Smoking Tobacco: Every Day Cigarettes Smokeless Tobacco: Never Comments: 1 pack daily Alcohol Use Standard Drinks/Week Comments Yes 0 (1 standard drink = 0.6 oz pure alcoho l) 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 Date Recorded 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 Provided relief until now. Cervical radicular pain and Headaches back. Order placed for Cervical LUZ with [facility]. Advised patient to call back 2weeks after injection if pain persists. Patient verbalized understanding. Telephone Encounter - Jackeline Ruiz - 11/15/2016 2:45 PM CDT Pt is requesting another order to for a cervical injection. He would like someone to call him back to let him know if he needs to come back in for another consult with Jasmin, or if he can just schedulethe injection once the order is in. documented in this encounter Plan of Treatment Scheduled Referrals Name Type Priority Associated Diagnoses Order [facility] Referral Routine Cervical radicular pain Ordered: 11/15/2016 ([facility]) REFERRAL documented as of this encounter Visit Diagnoses Diagnosis Cervical radicular pain - Primary Brachial neuritis or radiculitis nos documented in this encounter Care Teams Licensed Direct Entry Midwife Relationship Specialty Start Date End Date Leticia Armendariz MD PCP - General Internal Medicine 03/17/15 Leticia Armendariz MD PCP - Assigned PCP 06/30/14 11/07/[address] [address] Nahum Lemus MD 09/16/16 [facility] [address] [facility] [place] [address] Karuna Ramirez MD MD Cardiology 09/16/16 Leticia Armendariz MD Assigned PCP 06/30/14 01/06/[address] [address] documented as of this encounter
--- OUTSIDE RECORDS SUMMARY | 2022-06-25 13:52 | XMS_ITS | Encounter Summary ---
:1965 Author Organization [facility] Address [address] [place] [address] Care Team Providers Name Role Phone Leticia Armendariz MD Primary Care Provider Nahum Lemus MD Unavailable Karuna Ramirez MD Unavailable [phone] Leticia Armendariz MD Unavailable Leticia Armendariz MD Unavailable Encounter Details Date Type Department Care Team Description 12/08/2016 Radiant Appointment [facility] Nydia Ly, Cervical Clinic Demarco [facility] radiculopathy Pain Management [address] [place], [place] [address] [address] [place], [place] [phone] [address] (Work) [phone] Social History Tobacco Use Types Packs/Day Years Used Date Smoking Tobacco: Every Day Cigarettes Smokeless Tobacco: Never Comments: 1 pack daily Alcohol Use Standard Drinks/Week Comments Yes 0 (1 standard drink = 0.6 oz pure alcoho l) 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 Date Recorded 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 documented in this encounter Results XR Cervical/Thoracic Epidural Inj (12/08/2016 2:28 PM CDT) Specimen (Source) Anatomical Location Collection Method / Collectio n Time Received Time / Laterality Volume Narrative Mirian Peterson - 12/08/2016 2:31 P M CDT This exam was marked as non-reportable because it will not be read by a radiologist or a [facility] non-radiologis t provider. Nydai Ly MD IMG DIAGNOSTIC IMAGING ORDER WHITNEY documented in this encounter Visit Diagnoses Diagnosis Cervical radiculopathy Brachial neuritis or radiculitis nos documented in this encounter Administered Medications Inactive Administered Medications - up to 3 most recent administrations Medication Order MAR Action Action Date Dose Rate Site iohexol (OMNIPAQUE) 300 mg/mL Given by Other 12/08/2016 2:30 PM CDT 1 mL injection 10 mL 10 mL, EPIDURAL, ONCE, On Tue12/08/16 at 1415, For 1 dose documented in this encounter Care Teams Gun Numberer Relationship Specialty Start Date End Date Leticia Armendariz MD PCP - General Internal Medicine 03/17/15 Leticia Armendariz MD PCP - Assigned PCP 06/30/14 11/07/[address] [facility] [address] [place] [address] Nahum Lemus MD 09/16/16 [place] [facility] [address] [facility] [place] [address] Karuna Ramirez MD MD Cardiology 09/16/16 Leticia Armendariz MD Assigned PCP 06/30/14 [facility] [address] [place] [address] documented as of this encounter
--- OUTSIDE RECORDS SUMMARY | 2022-06-25 13:52 | XMS_ITS | Encounter Summary ---
:1965 Author Organization [facility] Address [address] [place] [address] Care Team Providers Name Role Phone Leticia Armendariz MD Primary Care Provider Nahum Lemus MD Unavailable Karuna Ramirez MD Unavailable [phone] Leticia Armendariz MD Unavailable Leticia Armendariz MD Unavailable Reason for Visit Reason Comments Medication Refill Encounter Details Date Type Department Care Team Description [facility] Med[facility] Refill [facility] [place] [address] [place] [address] [address] [phone] [place], [place] [address] (Wo rk) Social History Tobacco Use Types Packs/Day Years Used Date Smoking Tobacco: Every Day Cigarettes Smokeless Tobacco: Never Comments: 1 pack daily Alcohol Use Standard Drinks/Week Comments Yes 0 (1 standard drink = 0.6 oz pure alcoho l) 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 Date Recorded 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 of 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 encounter Miscellaneous Notes Telephone Encounter - Joyce Holliday CMA - 01/24/2017 6:03 PM CDT Faxed Ambien RX to [facility] Telephone Encounter - Ayaka Wilson RN - 01/24/2017 7:25 AM CDT Livia Last Written Prescription Date: 11/29/16 Last Fill Quantity: 30, # refills: 0 Last Office Visit with [facility] or [facility] prescribing provider: 08/02/16 No CSA on file documented in this encounter Plan of Treatment Not on filedocumented as of this encounter Visit Diagnoses Diagnosis Primary insomnia Persistent disorder of initiating or adrianne ntaining sleep documented in this encounter Care Teams Conservation Educator Relationship Specialty Start Date End Date Leticia Armendariz MD PCP - General Internal Medicine 03/17/15 Leticia Armendariz MD PCP - Assigned PCP 06/30/14 [facility] [address] [place] [address] Nahum Lemus MD 09/16/16 [facility] [address] [facility] [place] [address] Karuna Ramirez MD MD Cardiology 09/16/16 Leticia Armendariz MD Assigned PCP 06/30/14 01/06/19 [facility] [address] [place] [address] documented as of this encounter
--- OUTSIDE RECORDS SUMMARY | 2022-06-25 13:52 | XMS_ITS | Encounter Summary ---
:1965 Author Organization [place] Address [facility] [place] [address] Care Team Providers Name Role Phone Leticia Armendariz MD Primary Care Provider Leticia Armendariz MD Unavailable Leticia Armendariz MD Unavailable Reason for Referral CV Cardio consult - Closed Specialty Diagnoses / Procedures Referred By Contact Refer red To Contact Diagnoses Palpitations Leticia Armendariz MD [facility] [address] [address] [place] [address] Fax: Referral ID Status Reason Start Date Expiration Date Visits Requ ested Visits Authorized [id number] Closed 08/02/2016 08/02/2017 1 1 NTEGRATOR OPERATOR Reason for Visit Reason Comments Musculoskeletal Problem Encounter Details Date Type Department Care Team Description 08/02/2016 Office Visit [facility] Leticia Armendariz (Primary Dx); Clinic Demarco Bender MD Benign essential hypertension [address] [facility] [address] [place] [address] [phone] Social History Tobacco Use Types Packs/Day Years Used Date Smoking Tobacco: Every Day Cigarettes Smokeless Tobacco: Never Comments: 1/4 pack per day - quit date e summer Alcohol Use Standard Drinks/Week Comments No 0 (1 standard drink = 0.6 oz pure alcoho l) 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 Date Recorded Male 08/13/2020 9:06 AM 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 OPERATOR documented as of this encounter Last Filed Vital Signs Vital Sign Reading Time Taken Comments Blood Pressure 138/68 08/02/2016 11:36 AM 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 OPERATOR Pulse 94 08/02/2016 11:36 AM 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 OPERATOR Temperature 36.6 ??C (97.8 ??F) 08/02/2016 11:36 AM 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 OPERATOR Respiratory Rate 12 08/02/2016 11:36 AM 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 OPERATOR Oxygen Saturation 96% 08/02/2016 11:36 AM 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 OPERATOR Inhaled Oxygen Concentration - - Weight 93.9 kg (207 lb) 08/02/2016 11:36 AM 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 OPERATOR Height 175.3 cm (5' 9) 08/02/2016 11:36 AM 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 OPERATOR Body Mass Index 30.57 08/02/2016 11:36 AM 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 OPERATOR documented in this encounter Progress Notes Leticia Armendariz MD - 08/02/2016 11:37 AM CST SUBJECTIVE: Feng Perez is a 51 year old male who presents to clinic today for the following health issues: Patient c/o ongoing neck pain with little relief from Flexeril and injections. Patient expresses concerns regarding A-Fib. Patient states heart fluttering off and on. He does not take flexeril any longer. He had recently seen his surgeon's PA. He had an MRI, which was stable. He recently had an injection, and he did have two weeks of relief. Physical therapy did not help his pain. He does not exercise regularly. He does have an active job during the day. Atrial fibrillation. One week ago, he started to have flushing while carrying the laundry up. The next day he had a fluttery feeling in the chest. The patient has had a fluttering sensation and shortness of breath every day. He has a h/o of afib s/p cardioversion to normal sinus. He had seen Dr. Clark in the past, and had a heart monitor for one month. He has 1/2 decaf. Problem list and histories reviewed & adjusted, as indicated. ROS: C: NEGATIVE for fever, chills, change in weight R: NEGATIVE for significant cough or SOB CV: NEGATIVE for chest pain, peripheral edema; POS palpitations OBJECTIVE: BP 138/68 mmHg Pulse 94 Temp(Src) 97.8 ??F (36.6 ??C) (Oral) Resp 12 Ht 5' 9 (1.753 m) Wt207 lb (93.895 kg) BMI 30.55 kg/m2 SpO2 96% Body mass index is 30.55 kg/(m^2). GENERAL: healthy, alert and no distress NECK: no adenopathy, no asymmetry, masses, or scars and thyroid normal to palpation RESP: lungs clear to auscultation - no rales, rhonchi or wheezes CV: regular rate and rhythm, normal S1 S2, no S3 or S4, no murmur, click or rub ASSESSMENT/PLAN: (R00.2) Palpitations (primary encounter diagnosis) Comment: possibly paroxysmal arrhythmia Plan: CARDIOLOGY EVAL ADULT REFERRAL, CBC with platelets differential, TSH with free T4 reflex, Basic metabolic panel, EKG 12-lead complete w/read - Clinics, Zio Patch Holter, -limit caffeine (I10) Benign essential hypertension Comment: at goal Plan: continue on current medication Leticia Armendariz MD [facility] >25 minutes spent with patient, and >50% of time spent counseling NTEGRATOR OPERATOR documented in this encounter Nursing Notes Sabrina Zamora - 08/02/2016 11:41 AM CST Chief Complaint Patient presents with ??? Musculoskeletal Problem Initial BP 138/68 mmHg Pulse 94 Temp(Src) 97.8 ??F (36.6 ??C) (Oral) Resp 12 Ht 5' 9 (1.753m) Wt 207 lb (93.895 kg) BMI 30.55 kg/m2 SpO2 96% Estimated body mass index is 30.55 kg/(m^2) as calculated from the following: Height as of this encounter: 5' 9 (1.753 m). Weight as of this encounter: 207 lb (93.895 kg). BP completed using cuff size: large JBuffie DRILL PRESS SET UP OPERATOR RADIAL NTEGRATOR OPERATOR documented in this encounter Plan of Treatment Scheduled Referrals Name Type Priority Associated Diagnoses Order S chedule CARDIOLOGY EVAL ADULT Referral Routine Palpitations Ordere d: 08/02/2016 REFERRAL documented as of this encounter Procedures Procedure Name Priority Date/Time Associated Diagnosis Comme nts CBC WITH PLATELETS & Routine 08/02/2016 12:27 Palpitations Res ults for this DIFFERENTIAL PM 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 OPERATOR procedure are i n the results section. TSH WITH FREE T4 Routine 08/02/2016 12:27 Palpitations Results for this REFLEX PM 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 OPERATOR procedure are i n the results section. BASIC METABOLIC PANEL Routine 08/02/2016 12:27 Palpitations Re sults for this PM 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 OPERATOR procedure are i n the results section. EKG 12-LEAD COMPLETE Routine 08/02/2016 12:22 Palpitations Res ults for this W/READ - CLINICS PM 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 OPERATOR procedure a re in the results section. documented in this encounter Results Zio Patch Holter (08/14/2016) Narrative [facility] - 08/14/2016 [facility] [address] [place] [id number] 08/03/2016 Patient: ??Feng Perez Chart: [id number] : ??1965 Age: ??51 year old Sex: ??male Procedure: ??ZioPatch Monitor. Estimating Engineer performing hook-up: ??Laverne Roth Leticia Armendariz MD CV CARDIAC SERVICES ORDERABL ES Performing Organization Address City/State/ZIP Code Phon e Number [facility] Basic metabolic panel (08/02/2016 12:27 PM 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 OPERATOR) [facility] Method Time Signature Sodium 141 133 - 144 [place] mmol/L [facility] Potassium 4.1 3.4 - 5.3 [place] mmol/L [facility] Chloride 106 94 - 109 [place] mmol/L [facility] Carbon Dioxide 26 20 - 32 [place] mmol/L [facility] Anion Gap 9 3 - 14 [place] mmol/L [facility] Glucose 84 70 - 99 [place] mg/dL [facility] Urea Nitrogen 8 7 - 30 [place] mg/dL [facility] Creatinine 0.89 0.66 - [place] 1.25 [facility]INICS mg/dL [facility] GFR Estimate >90 >60 [place] Non GFR Calc mL/min/1. CLINICS 7m2 [facility] GFR Estimate >90 >60 [place] If Black GFR Calc mL/min/1. CLIN ICS 7m2 [facility] Calcium 9.4 8.5 - [place] 10.1 CLINICS mg/dL [facility] Specimen Anatomical Collection Method Collection Time Receive d Time (Source) Location / / Volume Laterality Blood specimen 08/02/2016 12:27 6 (specimen) PM 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 OPERATOR 12:32 PM 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 OPERATOR Leticia Armendariz MD LAB - BLOOD ORDERABLES Performing Organization Address City/State/ZIP Code Phon e Number [facility] [address] [place] [address] TSH with free T4 reflex (08/02/2016 12:27 PM 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 OPERATOR) P athologist Signature TSH 1.46 0.40 - 4.00 [facility] mU/L [facility] Specimen Anatomical Collection Method Collection Time Receive d Time (Source) Location / / Volume Laterality Blood specimen 08/02/2016 12:27 6 (specimen) PM 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 OPERATOR 12:32 PM 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 OPERATOR Leticia Armendariz MD LAB - BLOOD ORDERABLES Performing Organization Address City/[facility]/ZIP Code Phon e Number [facility] [address], [place] [phone] CBC with platelets differential (08/02/2016 12:27 PM 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 OPERATOR) Patholo gist Method Time Signature WBC 10.9 4.0 - [place] 11.0 [facility] 10e9/L [facility] RBC Count 4.85 4.4 - 5.9 [place] 10e12/L [facility] Hemoglobin 15.1 13.3 - [place] 17.7 g/dL [facility] Hematocrit 43.7 40.0 - [place] 53.0 % [facility] MCV 90 78 - 100 [facility] MCH 31.1 26.5 - [place] 33.0 pg [facility] MCHC 34.6 31.5 - [place] 36.5 g/dL [facility] RDW 12.7 10.0 - [place] 15.0 % [facility] Platelet Count 239 150 - 450 [address] [facility] Diff Method Automated [place] Method [facility] % Neutrophils 68.2 % [facility] % Lymphocytes 22.1 % [facility] % Monocytes 8.3 % [facility] % Eosinophils 0.9 % [facility] % Basophils 0.5 % [facility] Absolute 7.4 1.6 - 8.3 [place] Neutrophil 10e9/L [facility] Absolute 2.4 0.8 - 5.3 [place] Lymphocytes 10e9[facility] Absolute 0.9 0.0 - 1.[address] [place] Monocytes [address] Absolute 0.1 0.0 - 0.7 [place] Eosinophils [address] [place] [address] Absolute 0.1 0.0 - 0.2 [place] Basophils [address] [place] [address] Specimen Anatomical Collection Method Collection Time Receive d Time (Source) Location / / Volume Laterality Blood specimen 08/02/2016 12:27 6 (specimen) PM 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 OPERATOR 12:32 PM 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 OPERATOR Leticia Armendariz MD LAB - BLOOD ORDERABLES Performing Organization Address City/State/ZIP Code Phon e Number [place] [address] [place] [address] [facility] [address] [phone] EKG 12-lead complete w/read - Clinics (08/02/2016 12:22 PM 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 OPERATOR) Narrative This result has an attachment that is no t available. Leticia Armendariz MD ECG ORDERABLES documented in this encounter Visit Diagnoses Diagnosis Palpitations - Primary Benign essential hypertension Essential hypertension, benign Palpitations documented in this encounter Care Teams Trimmer Operator Three Knife Relationship Specialty Start Date End Date Leticia Armendariz MD PCP - General Internal Medicine 03/17/15 Leticia Armendariz MD PCP - Assigned PCP 06/30/14 11/07/18 [place] [address] [place] [address] Leticia Armendariz MD Assigned PCP 06/30/14 01/06/19 [facility] [address] [place] [address] documented as of this encounter
--- OUTSIDE RECORDS SUMMARY | 2022-06-25 13:52 | XMS_ITS | Encounter Summary ---
:1965 Author Organization [place] Address [address] [place] [address] Care Team Providers Name Role Phone Leticia Armendariz MD Primary Care Provider Nahum Lemus MD Unavailable Karuna Ramirez MD Unavailable [phone] Leticia Armendariz MD Unavailable Leticia Armendariz MD Unavailable Encounter Details Date Type Department Care Team Description 02/14/2017 Therapy Visit [facility] Adam Lawton Cervicalgia (Primary Dx); Rehabilitation Services NORMAN YAEL Krishna S/P cervical spinal fusion [facility] [address] [facility] [address] [address] [place] [address] [address] [place] [address] (Work) [phone] Social History Tobacco Use Types Packs/Day Years Used Date Smoking Tobacco: Every Day Cigarettes Smokeless Tobacco: Never Comments: 1 pack daily Alcohol Use Standard Drinks/Week Comments Yes 0 (1 standard drink = 0.6 oz pure alcoho l) 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 Date Recorded Male 08/13/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 They are present all the time. He notes that the pain does change after looking down for about oneminute as you would with reading. Clinical findings include declining performance of the deep neck flexors, stiffness of the upper cervical spine, and tension cervical musculature. He would benefit from physical therapy to retrain the muscle of the neck, reduce symptoms, and improve functionality. Subjective: Chief Complaint: Pain: Mid cervical spine, radiates downward between the shoulder blades and upward to the skull Numbness/Tingling: had some numbness/ tingling to the fingers more on the left than the right. [place] still present in the left pinky and ring finger Weakness: in the left more than the right hand Stiffness: in the neck Other: Headaches, daily, wraps around the sides to the front from the base of the skull New/Recurrent/Chronic: Chronic Patient's Goal(s): Is this something actually wrong with his neck, or does he just have to suck it up. DOI/onset: 3 years ago Referral Date: 02/07/2017 Mechanism of onset: unknown PMH/surgical history/trauma: C5/6 Fusion (04/15/2014), HTN, General health as reported by patient: good Medications: Sleep, HTN Previous Treatment (Effect): prednisone (helped with numbness/tingling, not with ache/pain), Imaging: MRI: IMPRESSION: 1. Fusion hardware in good position C5-C6 and without interval change. 2. Mild degenerative changes elsewhere in the cervical spine as described. 3. No interval change. 4. No cord abnormality through T2. 5. Moderate foraminal stenosis at C3-C4 on the left. 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 Job duties: Hx of fractures (in childhood, hands, wrist, leg, fingers), HTN, Heart Problems (A-fib in 2012), Hepatitis, sleep disorder, Hx of concussions Sleeping: wakes him/keeps him awake about 20% of the time, 1-2 hours per night lost Other current functional challenges: looking down, Current Functional Status: looking down - can look down for about 1 minute before increase in pain Hand/Leg Dominance: Right handed Transportation: Independent with transportation Live with Others: Hayder lives at home, able to help Red Flags: - Patient denies the following: Pain with Cough / Sneeze / Laughing ; Fever ; Change in Bowel or Bladder ; - Patient reports the following: Night Pain ; Weakness ; Numbness/Tingling ; Objective: Posture: Forward shoulder, mild forward head Mosaic Worker Strength (lb) R L Attempt #1 115 66 Attempt #2 95 69 Attempt #3 84 50 Average 98 61.7 AROM: (Major, Moderate, Minimal or Nil loss) Movement Loss Herminio Mod Min Nil Pain Flexion x Extension x Left Rotation x Right Rotation x Left Side Bending x Right Side bending x Retraction x x Tight in all directions, no significant increase in pain Cervical PIVMs: (nil, min, mod, sev) Level Up Clyo L Down Clyo L Up Clyo R Down Clyo R Pain C1/2 Tight/hypo C2/3 C3/4 C4/5 C5/6 C6/7 Tight/hypo C7/T1 Deep Neck Flexor Activation: Decrease chin tuck performance within 5 reps of a 10-second hold. Other: - Tension of the SCM bilaterally Symptom Stability: Stable Assessment/Plan: Patient is a 51 year old male with cervical complaints. Patient has the following significant findings with corresponding treatment plan. Diagnosis 1: Neck Pain, status post cervical spinal fusion Pain - hot/cold therapy, manual therapy, splint/taping/bracing/orthotics, self management, educationand home program Decreased ROM/flexibility - manual therapy, therapeutic exercise, therapeutic activity and home program Decreased joint mobility - manual therapy, therapeutic exercise, therapeutic activity and home program Decreased strength - therapeutic exercise, therapeutic activities and home program Decreased function - therapeutic activities and home program Impaired posture - neuro re-education, therapeutic activities and home program Therapy Evaluation Codes: 1) History comprised of: Personal factors that impact the plan of care: Time since onset of symptoms. Comorbidity factors that impact the plan of care are: Cervical Fusion. Medications impacting care: Anti-inflammatory and High blood pressure. 2) Examination of Body Systems comprised of: Body structures and functions that impact the plan of care: Cervical spine and Cranium. Activity limitations that impact the plan of care are: Looking. 3) Clinical presentation characteristics are: Stable/Uncomplicated. 4) Decision-Making Low complexity using standardized patient assessment instrument and/or measureable assessment of functional outcome. Cumulative Therapy Evaluation is: Low complexity. Previous and current functional limitations: (See Goal Flow Sheet for this information) Short term and detention goals: (See Goal Flow Sheet for this information) Communication ability: Patient appears to be able to clearly communicate and understand verbal and written communication and follow directions correctly. Treatment Explanation - The following has been discussed with the patient: RX ordered/plan of care Anticipated outcomes Possible risks and side effects This patient would benefit from PT intervention to resume normal activities. Rehab potential is good. Frequency: 1 X week, once daily Duration: for 6 weeks Discharge Plan: Achieve all LTG. Independent in home treatment program. Reach maximal therapeutic benefit. Please refer to the daily flowsheet for treatment today, total treatment time and time spent performing 1:1 timed codes. Adam Lawton - 02/14/2017 8:00 AM CDT Subjective: HPI Objective: System Physical Exam General ROS Assessment/Plan: DISCHARGE REPORT Updated as of March 29, 2017. Discharge report is from initial evaluation on Feb 14, 2017. SUBJECTIVE Subjective changes noted by patient: Patient has not returned since initial evaluation. Changes in function: Patient has not returned to clinic to assess. Adverse reaction to treatment or activity: Patient has not returned to clinic to assess. OBJECTIVE Changes noted in objective findings: Patient has failed to return to therapy so current objective findings are unknown. Objective: See initial evaluation note. ASSESSMENT/PLAN STG/LTGs have been met or progress has been made towards goals: Goal status unknown Assessment of Progress: Patient has not returned to therapy. Current status is unknown and dischargeG code cannot be reported. [place] continues to require the following intervention to meet STG and LTG's: Unknown, patient has not returned to therapy. Recommendations: No recommendations can accurately be made. Patient has failed to return to therapy. Please refer to the daily flowsheet for treatment today, total treatment time and time spent performing 1:1 timed codes. documented in this encounter Miscellaneous Notes Addendum Note - Adam Lawton - 03/29/2017 8:47 AM CDT Addended by: ADAM LAWTON on: 03/29/2017 08:47 AM Modules accepted: Orders documented in this encounter Plan of Treatment Not on filedocumented as of this encounter Procedures Procedure Name Priority Date/Time Associated Diagnosis Comme [facility] THERAPEUTIC Routine 02/14/2017 9:09 AM Cervicalgia EXERCISES CDT S/P cervical spinal fusion documented in this encounter Visit Diagnoses Diagnosis Cervicalgia - Primary S/P cervical spinal fusion Arthrodesis status documented in this encounter Care Teams Paper Processing Machine Helper Relationship Specialty Start Date End Date Leticia Armendariz MD PCP - General Internal Medicine 03/17/15 Leticia Armendariz MD PCP - Assigned PCP 06/30/14 11/07/[address] [address] Nahum Lemus MD 09/16/16 [facility] [address] [place] [address] Karuna Ramirez MD MD Cardiology 09/16/16 Leitcia Armendariz MD Assigned PCP 06/30/14 [facility]/06/[facility] [address] [address] documented as of this encounter
--- OUTSIDE RECORDS SUMMARY | 2022-06-25 13:52 | XMS_ITS | Encounter Summary ---
:1965 Author Organization [place] Address [address] [place] [address] Care Team Providers Name Role Phone Leticia Armendariz MD Primary Care Provider Nahum Lemus MD Unavailable Karuna Ramirez MD Unavailable [phone] Leticia Armendariz MD Unavailable Leticia Armendariz MD Unavailable Reason for Visit Reason Onset Date Comments other 01/27/2017 con't pain after inj ection Encounter Details Date Type Department Care Team Description 01/27/2017 [facility] Umang Sandoval other (con't pain [facility] MD Ramon after injection ) [address] ORTHOPEDICS [address] [place] [address] [place] [address] (Wo rk) Social History Tobacco Use Types Packs/Day Years Used Date Smoking Tobacco: Every Day Cigarettes Smokeless Tobacco: Never Comments: 1 pack daily Alcohol Use Standard Drinks/Week Comments Yes 0 (1 standard drink = 0.6 oz pure alcoho l) 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 Date Recorded Male 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 Called and informed patient. Order placed in [facility] and provided number to central scheduling. Jasmin will contact patient with results. Patient verbalized understanding. Telephone Encounter - Flakita Bacon RN - 01/27/2017 3:50 PM CDT Patient has had 3 injections (on 06/01/16,06/15/16, and 12/08/16). He said his last injection in December provided no relief at all. He would like to discuss next steps. He reports constant headaches, neck pain to shoulders, numbness down both arms into hands. Call routed to Jasmin Yu CNP for recommendation. Telephone Encounter - Reba Servin - 01/27/2017 3:02 PM CDT ACDF with Dr Sandoval [id number]. Had injection last May and another in November. Pain has returned wondering what his next step is. Please call documented in this encounter Plan of Treatment Not on filedocumented as of this encounter Results MR Cervical Spine w/o Contrast (02/04/2017 6:27 PM CDT) Anatomical Region Laterality Modality Spine, SUBRAD MR NEURO, UMP MR SPINE Mag netic Resonance Specimen (Source) [...] C3-C4 on the left. DENILSON LUCERO MD Jasimn Yu PULLING UNIT FLOORHAND SUPERVISOR DRAPERY HANGING IMG MRI ORDERABLES documented in this encounter Visit Diagnoses Diagnosis Cervical radicular pain - Primary Brachial neuritis or radiculitis nos Cervical radicular pain Brachial neuritis or radiculitis nos documented in this encounter Care Teams Ornamental Metal Fabricator Apprentice Relationship Specialty Start Date End Date Leticia Armendariz MD PCP - General Internal Medicine 03/17/15 Leticia Armendariz MD PCP - Assigned PCP 06/30/14 11/07/[address] [id number] Nahum Lemus MD 09/16/16 [place] [facility] [address] [place] [address] [address] [place] [id number] Karuna Ramirez MD MD [facility] 09/16/16 Leticia Armendariz MD Assigned PCP 06/30/14 01/06/19 [facility] [address] [place] [id number] documented as of this encounter
--- OUTSIDE RECORDS SUMMARY | 2022-06-25 13:52 | XMS_ITS | Encounter Summary ---
:1965 Author Organization [place] Address [address] [place] [address] Care Team Providers Name Role Phone Leticia Armendariz MD Primary Care Provider Leticia Armendariz MD Unavailable Leticia Armendariz MD Unavailable Reason for Visit (Routine) - Closed Specialty Diagnoses / Procedures Referred By Contact Refer red To Contact Cardiology Diagnoses per Marcello 10 day ziopatch, palpitaions Zzrh Cardi ac Test Rscc Procedures ZIOPATCH MONITOR [address] [place], [place] [address] Phone: Fax: Referral ID Status Reason Start Date Expiration Date Visits Requ ested Visits Authorized [id number] Closed 08/03/2016 08/03/2017 1 1 Encounter Details Date Type Department Care Team Description 08/03/2016 Hospital Encounter [facility] Tammi Armendariz ma Palpitations [facility] MD [place] [address] [employer] [facility] [address] [place] [address] [phone] Social History Tobacco Use Types Packs/Day Years Used Date Smoking Tobacco: Every Day Cigarettes Smokeless Tobacco: Never Comments: 1/4 pack per day - quit date e summer Alcohol Use Standard Drinks/Week Comments No 0 (1 standard drink = 0.6 oz pure alcoho l) 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 Date Recorded 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 Medications at Time of Discharge Medication Sig Dispensed Refills Start Date End Date amLODIPine (NORVASC) 5 MG Take 1 tablet (5 90 tablet 1 03/0609/17/2016 tabletIndications: Atrial mg) by mouth daily fibrillation status post cardioversion (H) losartan (COZAAR) 50 MG Take 1 tablet (50 90 tablet 1 03/2909/21/2016 tabletIndications: Atrial mg) by mouth daily fibrillation status post cardioversion (H) zolpidem (AMBIEN) 5 MG Take 1 tablet (5 30 tablet 5 016 11/27/2016 tabletIndications: Primary mg) by mouth insomnia nightly as needed for sleep documented as of this encounter Progress Notes Laverne Roth - 08/03/2016 4:16 PM CST Placed a 10 day zio patch. Written and verbal instructions were given and all questions were answered. L ADVISER documented in this encounter Plan of Treatment Not on filedocumented as of this encounter Procedures Procedure Name Priority Date/Time Associated Diagnosis Comme nts ZIO PATCH HOLTER Routine 08/14/2016 Palpitations Results for this procedure are in the resu lts section. documented in this encounter Results Zio Patch Holter (08/14/2016) Narrative [facility] - 08/14/[address] [facility] [address] [address] 08/03/2016 Patient: ??Feng Perez Chart: [id number] : ??1965 Age: ??51 year old Sex: ??male Procedure: ??ZioPatch Monitor. Landscape Designer performing hook-up: ??Laverne Roth Leticia Armendariz MD [facility] ORDERABL ES Performing Organization Address City/State/ZIP Code Phon e Number [facility] documented in this encounter Visit Diagnoses Diagnosis Palpitations documented in this encounter Care Teams Corrugator Relationship Specialty Start Date End Date Leticia Armendariz MD PCP - General Internal Medicine 03/17/15 Leticia Armendariz MD PCP - Assigned PCP 06/30/14 11/07/[address] [address] Leticia Armendariz MD Assigned PCP 06/30/14 01/06/[address] [address] documented as of this encounter
--- OUTSIDE RECORDS SUMMARY | 2022-06-25 13:52 | XMS_ITS | Encounter Summary ---
:1965 Author Organization [place] Address [address] [place] [address] Care Team Providers Name Role Phone Leticia Armendariz MD Primary Care Provider Nahum Lemus MD Unavailable Karuna Ramirez MD Unavailable [phone] Leticia Armendariz MD Unavailable Leticia Armendariz MD Unavailable Reason for Visit Reason Comments Hernia LLQ abdominal pain--was lift ing heavy items--pain lasted 3 days Recheck Medication discuss Ambien Rx Encounter Details Date Type Department Care Team Description 03/30/2017 Office Visit [facility] Leticia Armendariz Abdomin al pain, left lower quadrant (Primary Dx); Clinic Demarco Bender MD Essential hypertension; [address] [place] [facility] Primary insomnia [address] [place] [address] [id number] Social History Tobacco Use Types Packs/Day Years Used Date Smoking Tobacco: Every Day Cigarettes Smokeless Tobacco: Never Comments: 1 pack daily Alcohol Use Standard Drinks/Week Comments Yes 0 (1 standard drink = 0.6 oz pure alcoho l) 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 Date Recorded 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 encounter Last Filed Vital Signs Vital Sign Reading Time Taken Comments Blood Pressure 126/70 03/30/2017 2:56 PM CDT Pulse 102 03/30/2017 2:56 PM CDT Temperature 36.7 ??C (98.1 ??F) 03/30/2017 2:56 PM CDT Respiratory Rate - - Oxygen Saturation 97% 03/30/2017 2:56 PM CDT Inhaled Oxygen Concentration - - Weight 92.5 kg (204 lb) 03/30/2017 2:56 PM CDT Height 175.3 cm (5' 9) 03/30/2017 2:56 PM CDT Body Mass Index 30.13 03/30/2017 2:56 PM CDT documented in this encounter Progress Notes Leticia Armendariz MD - 03/30/2017 2:40 PM CDT SUBJECTIVE: Feng Perez is a 52 year old male who presents to clinic today for the following health issues: The patient has had LLQ pain a couple of weeks ago. He reports that it was 7/10 constant pain for 3-4 days. He otherwise has felt fine. He has had diarrhea for the past 3 weeks. No blood in stool. No fevers or chills. Colonoscopy was 2015 and normal. He does not feel a bulge. He had been lifting heavy objects lately. Hiatal hernia in the past. 12 years ago he had a lot of pain, and was told her had diverticulitis. HTN. Patient exercises regularly. Tries to eat healthy. BMI is 30. Insomnia. The ambien works for him. His work has been stressed out at work. He does not have caffeine after noon. Exercises still. Problem list and histories reviewed & adjusted, as indicated. Additional history: as documented Reviewed and updated as needed this visit by clinical staff Tobacco Allergies Meds Med Hx Surg Hx Fam Hx Soc Hx Reviewed and updated as needed this visit by Provider ROS: C: NEGATIVE for fever, chills, change in weight R: NEGATIVE for significant cough or SOB CV: NEGATIVE for chest pain, palpitations or peripheral edema GI: see above OBJECTIVE: BP 126/70 Pulse 102 Temp 98.1 ??F (36.7 ??C) (Oral) Ht 5' 9 (1.753 m) Wt 204 lb (92.5 kg) SpO2 97% BMI 30.13 kg/m2 Body mass index is 30.13 kg/(m^2). GENERAL: healthy, alert and no distress RESP: lungs clear to auscultation - no rales, rhonchi or wheezes CV: regular rate and rhythm, normal S1 S2, no S3 or S4, no murmur, click or rub, no peripheral edemaand peripheral pulses strong ABDOMEN: soft, nontender, no hepatosplenomegaly, no masses and bowel sounds normal ASSESSMENT/PLAN: (R10.32) Abdominal pain, left lower quadrant (primary encounter diagnosis) LLQ pain. Possibly diverticulitis. Currently pain has resolved. Monitor for now. CT scan ab/pelvis if symptoms return (I10) Essential hypertension (primary encounter diagnosis) Comment: at goal Plan: continue on norvasc and losartan (F51.01) Primary insomnia Comment: needs refill Plan: zolpidem (AMBIEN) 10 MG tablet Leticia Armendariz MD [facility] documented in this encounter Nursing Notes Antionette Hernandez CMA - 03/30/2017 2:40 PM CDT Chief Complaint Patient presents with ??? Hernia LLQ abdominal pain--was lifting heavy items--pain lasted 3 days ??? Recheck Medication discuss Ambien Rx Initial BP 126/70 Pulse 102 Temp 98.1 ??F (36.7 ??C) (Oral) Ht 5' 9 (1.753 m) Wt 204 lb (92.5 kg) SpO2 97% BMI 30.13 kg/m2 Estimated body mass index is 30.13 kg/(m^2) as calculated from the following: Height as of this encounter: 5' 9 (1.753 m). Weight as of this encounter: 204 lb (92.5 kg). Medication Reconciliation: complete Antionette Hernandez CMA documented in this encounter Plan of Treatment Not on filedocumented as of this encounter Visit Diagnoses Diagnosis Abdominal pain, left lower quadrant - Pr imary Essential hypertension Unspecified essential hypertension Primary insomnia Persistent disorder of initiating or adrianne ntaining sleep documented in this encounter Care Teams Physical Plant Manager Relationship Specialty Start Date End Date Leticia Armendariz MD PCP - General Internal Medicine 03/17/15 Leticia Armendariz MD PCP - Assigned PCP 06/30/14 11/07/18 [facility] [address] [address] Nahum Lemus MD 09/16/16 [facility] [address] [facility] [address] [place] [id number] Karuna Ramirez MD MD Cardiology 09/16/16 Leticia Armendariz MD Assigned PCP 06/30/14 01/06/19 [place] [address] [place] [address] documented as of this encounter
--- OUTSIDE RECORDS SUMMARY | 2022-06-25 13:52 | XMS_ITS | Encounter Summary ---
:1965 Author Organization [place] Address [address] [place] [address] Care Team Providers Name Role Phone Leticia Armendariz MD Primary Care Provider Nahum Lemus MD Unavailable Karuna Ramirez MD Unavailable [phone] Leticia Armendariz MD Unavailable Leticia Armendariz MD Unavailable Reason for Referral [facility] - Closed Specialty Diagnoses / Procedures Referred By Contact Refer red To Contact Diagnoses Status post cervical spinal fusion Jasmin Yu APRN CNP [facility] [address] [facility] [address] [place] [address] Referral ID Status Reason Start Date Expiration Date Visits Requ ested Visits Authorized [id number] Closed 02/07/2017 02/07/2018 1 1 Reason for Visit Reason Onset Date Comments Results 02/07/2017 Encounter Details Date Type Department Care Team Description 02/07/2017 Telephone [facility] Neurosurgery Emmanuel Yu, [place] 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 No new herniation, impingement or herniations. Will try medrol dose pack and PT. He is open to this. Recc. See PCP for headaches. documented in this encounter Plan of Treatment Scheduled Referrals Name Type Priority Associated Diagnoses Order S chedule [facility] PT, HAND, AND Referral Routine Status post cervical Or dered: 02/07/2017 CHIROPRACTIC REFERRAL spinal fusion documented as of this encounter Visit Diagnoses Diagnosis Status post cervical spinal fusion - [facility] Arthrodesis status documented in this encounter Care Teams Zigzag Machine Operator Relationship Specialty Start Date End Date Leticia Armendariz MD PCP - General Internal Medicine 03/17/15 Leticia Armendariz MD PCP - Assigned PCP 06/30/14 11/07/[address] [address] Nahum Lemus MD 09/16/16 [facility] [address] [facility] [place] [address] Karuna Ramirez MD MD Cardiology 09/16/16 Leticia Armendariz MD Assigned PCP 06/30/14 01/06/[address] [address] documented as of this encounter
--- OUTSIDE RECORDS SUMMARY | 2022-06-25 13:52 | XMS_ITS | Encounter Summary ---
:1965 Author Organization [place] Address [facility] [place] [address] Care Team Providers Name Role Phone Leticia Armendariz MD Primary Care Provider Nahum Lemus MD Unavailable Karuna Ramirez MD Unavailable [phone] Karime Castro DO Unavailable Tito Almonte MD Unavailable Leticia Armendariz MD Unavailable Leticia Armendariz MD Unavailable Reason for Visit Reason Onset Date Comments Procedure 11/15/2016 Epidural Steroid (in terlaminar approach): Cervical: level TBD by performing physician Encounter Details Date Type Department Care Team Description 11/15/2016 [facility] Procedu re (Epidural Pain Management Program, [place] Steroid (interlaminar [facility] [place] approach): Cervical: [address] level TBD by [place] [address] performing physician) [place] [address] Social History Tobacco Use Types Packs/Day Years Used Date Smoking Tobacco: Every Day Cigarettes Smokeless Tobacco: Never Comments: 1 pack daily Alcohol Use Standard Drinks/Week Comments Yes 0 (1 standard drink = 0.6 oz pure alcoho l) 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 Date Recorded 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 [facility] Procedure ordered by Dr. Sandoval Procedure ordered? Epidural Steroid (interlaminar approach): Cervical: level TBD by performing physician What insurance would patient like us to bill for this procedure? [employer] ?? Worker's comp- Any injection DO NOT SCHEDULE and route to Arielle Lora. ?? [employer] insurance - If scheduling an SI joint injection DO NOT SCHEDULE and route to Arielle Lora. ?? [employer]- MBB's must be scheduled at LEAST two weeks apart ?? [employer] - Any injection besides hip/shoulder/knee joint DO NOT SCHEDULE and route to Arielle Lora. She will obtain PA and call pt back to schedule procedure or notify pt of denial. Is an certified court/medical interpreter needed? No Patient has a drive home? (mandatory) Yes Is patient taking any blood thinners (plavix, coumadin, jantoven, warfarin, heparin, pradaxa or dabigatran )? No (If so, do not schedule, contact RN and/or MD) Is patient taking any aspirin products? No (If more than 325mg/day do not schedule; Contact RN/MD. For all non-cervical interventional procedures if patient is taking MORE than 325mg/day, limit aspirin to 81-325mg/day x 1 week. No hold requiredday of procedure. For CERVICAL procedures, hold all aspirin products for 6 days.) Does the patient have a bleeding or clotting disorder? No (If yes, okay to schedule, but contact RN/MD). For any patients with platelet count <100, must be forwarded to provider Is patient diabetic? No If YES, have them bring their glucometer. Does patient have an active infection or treated for one within the past week? No Is patient currently taking any antibiotics? No For patients on chronic, preventative, or prophylactic antibiotics, procedures can be scheduled. For patients on antibiotics for active or recent infection: Charles Hassan, Malachi Weber-antibiotic course must have been completed for [address] Tran-antibiotic course must have been completed for 7 days Is patient currently taking any steroid medications? (i.e. Prednisone, Medrol) No For patients on steroid medications: Charles Hassan [place], Burton-steroid course must have been completed for [address] Tran-steroid course must have been completed for 7 days Review with patient: If you are started on any steroids or antibiotics between now and your appointment, you must contact us because it may affect our ability to perform your procedure informed Is patient actively being treated for cancer or immunocompromised, including the spleen having been removed? No For Dr. Harmon patients without spleens should have the chart sent to her (If YES, do NOT schedule and route to RN) Are you able to get on and off an exam table with minimal or no assistance? Yes (If NO, do NOT schedule and route to RN) Are you able to roll over and lay on your stomach with minimal or no assistance? Yes (If NO, do NOT schedule and route to RN) Any allergies to contrast dye, iodine, shellfish, or numbing and steroid medications? No (If so, inform nursing and note in scheduling comments.) Allergies: Review of patient's allergies indicates no known allergies. Any chance of ? No Has the patient had a flu shot or any other vaccinations within 7 days before or after the procedure. No Does patient have an MRI/CT? MRI (SI joint, hip injections, lumbar sympathetic blocks, and stellate ganglion blocks do not require anMRI) ?? If so, was it done at [place]? Yes ?? If not, where was it done? N/A Was the MRI done w/in the last 3 years? Yes If MRI was not done at [place], [facility] or [facility] do NOT schedule. Route to nursing. (If pt has disc the injection can be scheduled but pt has to bring disc to appt. If they show up w/out disc the injection cannot be done) Must be scheduled with elapsed time interval of at least 2 weeks and not more than 6 months between the First MBB and the Second MBB Medial Branch Block Pre-Procedure Instructions ?? It is okay to take long acting pain medications (if you are on them) the day of the procedure buttry not to take any short acting medications unless absolutely necessary. informed Long acting meds would include: Gabapentin (Neurontin), MS Contin, Oxycontin Short acting meds would include: Percocet, Oxycodone, Vicodin, Ibuprofen ?? The day of the procedure, you should try to do things that provoke your pain, since the injectionis being done to see if it will relieve your pain . informed ?? If your pain level is a 4 out of 10 or less on the day of the procedure, please call [phone] reschedule. informed Reminders (please tell patient if applicable): ?? Instructed pt to arrive 30 minutes early for IV start if this is for a cervical procedure, ALL sympathetic (stellate ganglion, hypogastric, or lumbar sympathetic block) and all sedation procedures (RFA, spinal cord stimulation trials). N/A -IVs are not routinely placed for [place] and [place] cervical cases ?? If NPO for sedation, it is okay to take medications with sips of water (except if they are to hold blood thinners). N/A *DO take blood pressure medication if it is prescribed* ?? If this is for a cervical MBB aspirin needs to be held for 6 days. N/A ?? Do not schedule procedures requiring IV placement in the first appointment after lunch ?? For patients 85 or older we recommend having an adult stay w/ them for the remainder of the day. Does the patient have any questions? No documented in this encounter Plan of Treatment Not on filedocumented as of this encounter Visit Diagnoses Not on filedocumented in this encounter Care Teams Inspector Elevators Relationship Specialty Start Date End Date Leticia Armendariz MD PCP - General Internal Medicine 03/17/15 Leticia Armendariz MD PCP - Assigned PCP 06/30/14 11/07/18 [facility] [address] [place] [address] Nahum Lemus MD 09/16/16 [facility] [address] [facility] [place] [id number] Karuna Ramirez MD MD Cardiology 09/16/16 Karime Castro DO Referring Physician Orthopedics 05/13/17 [facility] [address] [facility] [place] [address] [place] [address] Tito Almonte MD MD Orthopedics 05/13/17 [address] [facility] [address] [place] [address] Leticia Armendariz MD Assigned PCP 06/30/14 01/06/19 [facility] [address] [place] [address] documented as of this encounter
--- OUTSIDE RECORDS SUMMARY | 2022-06-25 13:52 | XMS_ITS | Encounter Summary ---
:1965 Author Organization [place] Address [address] [place] [address] Care Team Providers Name Role Phone Leticia Armendariz MD Primary Care Provider Nahum Lemus MD Unavailable Karuna Ramirez MD Unavailable [phone] Leticia Armendariz MD Unavailable Leticia Armendariz MD Unavailable Reason for Visit Reason Comments Medication Refill Encounter Details Date Type Department Care Team Description 03/19/2017 [facility] Leticia Armendariz Medication Refill [place] MD [address] [place] [address] [address] [phone] [place], [place] [address] (Wo rk) Social History Tobacco Use Types Packs/Day Years Used Date Smoking Tobacco: Every Day Cigarettes Smokeless Tobacco: Never Comments: 1 pack daily Alcohol Use Standard Drinks/Week Comments Yes 0 (1 standard drink = 0.6 oz pure alcoho l) 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 Date Recorded 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 Opal Mclean MA Telephone Encounter - Ayaka Wilson RN - 03/21/2017 6:58 AM CDT Livia Last Written Prescription Date: 01/24/17 Last Fill Quantity: 30, # refills: 0 Last Office Visit with [facility] or [facility] prescribing provider: 08/02/16 Next 5 appointments (look out 90 days) Mar 30, 2017 2:40 PM CDT SHORT with Leticia Armendariz MD [facility] ([facility]) [address] [place] [phone] documented in this encounter Plan of Treatment Not on filedocumented as of this encounter Visit Diagnoses Diagnosis Primary insomnia Persistent disorder of initiating or adrianne ntaining sleep documented in this encounter Care Teams Rent Control Office Manager Relationship Specialty Start Date End Date Leticia Armendariz MD PCP - General Internal Medicine 03/17/15 Leticia Armendariz MD PCP - Assigned PCP 06/30/14 11/07/[address] [address] Nahum Lemus MD 09/16/16 [facility] [address] [facility] [place] [place] [address] Karuna Ramirez MD MD Cardiology 09/16/16 Leticia Armendariz MD Assigned PCP 06/30/14 01/06/[address] [address] documented as of this encounter
--- OUTSIDE RECORDS SUMMARY | 2022-06-25 13:52 | XMS_ITS | Encounter Summary ---
:1965 Author Organization [facility] Address [address] [place] [id number] Care Team Providers Name Role Phone Leticia Armendariz MD Primary Care Provider Nahum Lemus MD Unavailable Karuna Ramirez MD Unavailable Leticia Armendariz MD Unavailable Leticia Armendariz MD Unavailable Reason for Visit Reason Comments Pain Encounter Details Date Type Department Care Team Description 12/08/2016 Radiology [facility] Nydia Ly Cervic al Injection Office Pain Management radiculopathy Visit [place] [id number] [place] [address] (Primary Dx) [address] [facility] [address] [place], [place] [address] [address] [place], [place] [phone] (Work) [phone] Social History Tobacco Use Types Packs/Day Years Used Date Smoking Tobacco: Every Day Cigarettes Smokeless Tobacco: Never Comments: 1 pack daily Alcohol Use Standard Drinks/Week Comments Yes 0 (1 standard drink = 0.6 oz pure alcoho l) 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 Date Recorded Male 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 Nydia Ly Your procedure: Epidural steroid injection Medications used: Lidocaine (anesthetic) Dexamethasone (steroid) Omnipaque (contrast) ??? 6-8 hours after the procedure due to effect of the local anesthetic ??? Do not drive for 6 hours. The effect of the local anesthetic could slow your reflexes. ??? Avoid strenuous activity for the first 24 hours. You may resume your regular activities after that. ??? You may shower, however avoid swimming, tub baths or hot tubs for 24 hours following your procedure ??? You may have a mild to moderate increase in pain for several days following the injection. ??? You may use ice packs for 10-15 minutes, 3 to 4 times a day at the injection site for comfort ??? Do not use heat to painful areas for 6 to 8 hours. This will give the local anesthetic time to wear off and prevent you from accidentally burning your skin. ??? You may use anti-inflammatory medications (such as Ibuprofen/Advil or Aleve) or Tylenol for paincontrol if necessary ??? It may take up to 14 days for the steroid medication to start working although you may feel the effect as early as a few days after the procedure. ??? If you experience any of the following, call the pain center nursing line during work hours at [phone] or on-call physician after hours at [phone]: -Fever over 100 degree F -Swelling, bleeding, redness, drainage, warmth at the injection site -Progressive weakness or numbness in your legs or arms -Loss of bowel or bladder function -Unusual headache that is not relieved by Tylenol -Unusual new onset of pain that is not improving Phone #s: Appointment scheduling line: [phone] documented in this encounter Progress Notes Nydia Ly MD - 12/08/2016 1:45 PM CDT [facility] - Procedure Note Date of Visit: 12/08/2016 Procedure performed: C7-T1 interlaminar epidural steroid injection with fluoroscopic guidance Diagnosis: Cervical spondylosis; Cervical radiculitis/radiculopathy Didactic Program In Dietetics Director: Nydia Ly MD Anesthesia: none Indications: Feng Perez is a 51 year old male who is seen at the request of Jasmin Yu CNPfor cervical epidural steroid injection. The patient describes neck pain radiating to his shoulders and head. S/p anterior fusion [address] Sandoval. He previously had an LUZ that gave him about2 months pain relief. The patient has been exhibiting symptoms consistent with cervical intraspinal inflammation and radiculopathy. Symptoms have been persistent, disabling, and intermittently severe. The patient reports minimal improvement with conservative treatment, including stretching and medications. Cervical MRI was done on 05/21/2016 which showed FINDINGS: The patient has undergone prior anterior discectomy and fusion procedure at C5-C6. There is normal posterior alignment. There is no evidence for craniovertebral or cervical medullary junction abnormality. The cervical cord is normal in morphology and signal characteristics. Metallic artifact obscures a good portion of the marrow of the C5 and C6 vertebral segments. Disc space narrowing is present at C3-C4 similar to that seen on the prior exam. ?? C2-C3: Normal. ?? C3-C4: There is some broad-based disc bulging and uncinate spurring which is causing some mild central and mild bilateral neural foraminal stenosis. ?? C4-C5: Minimal central disc bulge or disc protrusion is present. There is no significant stenosis. ?? C5-C6: This level has been fused. There is no stenosis. ?? C6-C7: Minimal disc bulge. No stenosis. ?? C7-T1: Normal. ?? Paraspinal soft tissues: Normal as visualized. ?? IMPRESSION: 1. Prior C5-C6 anterior discectomy and fusion. Alignment is normal and there is no stenosis. 2. C3-C4 degenerative disc disease with mild central and mild bilateral neural foraminal stenosis. This is stable and unchanged. 3. Small central disc protrusion at C4-C5 without stenosis. This is also stable and unchanged. Allergies: No Known Allergies Vitals: BP 118/77 Pulse 80 SpO2 97% Review of Systems: The patient denies recent fever, chills, illness, use of antibiotics or anticoagulants. All other 10-point review of systems negative. Procedure: The procedure and risks were explained, and informed written consent was obtained from the patient. Risks include but are not limited to: infection, bleeding, increased pain, and damage to soft tissue, nerve, muscle, and vasculature structures. After getting informed consent, patient was brought into the procedure suite and was placed in a prone position on the procedure table. A Pause forthe Cause was performed. Patient was prepped and draped in sterile fashion. The C7-T1 interspace was identified with use of fluoroscopy in AP view. A 25- gauge, 1.5 inch needle was used to anesthetize the skin and subcutaneous tissue entry site with a total of 2 ml of 1% lidocaine. Under fluoroscopic visualization, a 22-gauge, 3.5 inch Tuohy epidural needle was slowly advanced towards the epidural space a few millimeters left of midline. The latter part of the needle advancement was guided with fluoroscopy in the lateral view. The epidural space was identified using loss of resistance technique. After negative aspiration for heme and cerebrospinal fluid, a total of 1 mL of non-ionic contrast was injected to confirm needle placement. 9 mL of contrast was wasted. Epidurogramconfirmed spread within the posterior epidural space. 2 ml of 10mg/ml of dexamethasone and 1 ml of preservative free 1% lidocaine was injected. The needle was removed. Images were saved to PACS. The patient tolerated the procedure well, and there was no evidence of procedural complications. No new sensory or motor deficits were noted following the procedure. The patient was stable and able to ambulate on discharge home. Post-procedure instructions were provided. Pre-procedure pain score: 5/10 in the neck, 0/10 in the arm Post-procedure pain score: 6/10 in the neck, 0/10 in the arm Assessment/Plan: Feng Perez is a 51 year old male s/p cervical interlaminar epidural steroid injection today for cervical spondylosis and radiculitis/radiculopathy. 1. Following today's procedure, the patient was advised to contact the [facility] for any of the following: Fever, chills, or night sweats New onset of pain, numbness, or weakness Any questions/concerns regarding the procedure If unable to contact the Pain Center, the patient was instructed to go to a local Emergency Room forany complications. 2. The patient will receive a follow-up call in 1 week. 3. Follow-up with Jasmin Yu CNP in 2 weeks for post-procedure evaluation. Nydia LyMD Pain Management 12/08/2016 documented in this encounter Nursing Notes Karen Dale CMA - 12/08/2016 1:45 PM CDT Injection intake: If this procedure is requiring IV sedation has patient been NPO for 6 Hours? NA Is patient on coumadin, plavix or other prescribed blood thinner? No If patient is on coumadin was it held for 5 days? NA If patient is on plavix was it held for 7 days? NA Does patient take aspirin? No If this is for a cervical procedure and patient is on aspirin has it been held for 6 days? NA Any allergies to contrast dye, iodine, steroid and/or numbing medications? NO Is patient currently taking antibiotics or have an active infection? 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 Not Applicable Are the vital signs normal? Yes Cecelia Bales RN - 12/08/2016 1:45 PM CDT Discharge Information IV Discontiued Time: NA Amount of Fluid Infused: NA Discharge Criteria = When patient returns to baseline or as per MD order Consciousness: Pt is fully awake Circulation: BP +/- 20% of pre-procedure level Respiration: Patient is able to breathe deeply O2 Sat: Patient is able to maintain O2 Sat >92% on room air Activity: Moves 4 extremities on command Ambulation: Patient is able to stand and walk or stand and pivot into wheelchair Dressing: Clean/dry or No Dressing Notes: Discharge instructions and AVS given to patient Patient meets criteria for discharge? YES Admitted to PCU? No Responsible adult present to accompany patient home? Yes Signature/Title: Cecelia Bales RN Medical Staff Services Coordinator [facility] documented in this encounter Plan of Treatment Not on filedocumented as of this encounter Visit Diagnoses Diagnosis Cervical radiculopathy - Primary Brachial neuritis or radiculitis nos documented in this encounter Care Teams Scagliola Mechanic Relationship Specialty Start Date End Date Leticia Armendariz MD PCP - General Internal Medicine 03/17/15 Leticia Armendariz MD PCP - Assigned PCP 06/30/14 11/07/18 [email or web address] [address] [place] [id number] Nahum Lemus MD 09/16/16 [facility] [address] [place] [id number] Karuna Ramirez MD MD Cardiology 09/16/16 Leticia Armendariz MD Assigned PCP 06/30/14 01/06/19 [facility] [address] [address] documented as of this encounter
--- OUTSIDE RECORDS SUMMARY | 2022-06-25 13:52 | XMS_ITS | Encounter Summary ---
:1965 Author Organization [facility] Address [address] [place] [id number] Care Team Providers Name Role Phone Leticia Armendariz MD Primary Care Provider Leticia Armendariz MD Unavailable Leticia Armendariz MD Unavailable Reason for Referral Diagnostic Procedure Outpatient - Closed Specialty Diagnoses / Procedures Referred By Contact Refer red To Contact Diagnoses Atrial fibrillation status post cardioversion (H) Chest pain, unspecified type Linda Ramirez MD HEART [address] [place], [place] [address] Fax: Referral ID Status Reason Start Date Expiration Date Visits Requ ested Visits Authorized [id number] Closed 08/23/2016 08/23/2017 1 1 ION DIRECTOR Reason for Visit Reason Comments Palpitations CV Cardio consult - Closed Specialty Diagnoses / Procedures Referred By Contact Refer red To Contact Diagnoses Palpitations Leticia Armendariz MD [facility] [address] [place] [address] [place] [address] [place] [phone] Fax: Referral ID Status Reason Start Date Expiration Date Visits Requ ested Visits Authorized [id number] Closed 08/02/2016 08/02/2017 1 1 Encounter Details Date Type Department Care Team Description 08/20/2016 Office Visit [facility] fibr illation status post cardioversion (H) (Primary Dx); [facility] Linda Krishna MD Chest pain, unspecified type Heart HEART [address] [place] [id number] Social History Tobacco Use Types Packs/Day Years Used Date Smoking Tobacco: Every Day Cigarettes Smokeless Tobacco: Never Comments: 1 pack daily Alcohol Use Standard Drinks/Week Comments Yes 0 (1 standard drink = 0.6 oz pure alcoho l) 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 Date Recorded 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 documented as of this encounter Last Filed Vital Signs Vital Sign Reading Time Taken Comments Blood Pressure 114/77 08/20/2016 1:26 PM FASHION DIRECTOR Pulse 84 08/20/2016 1:26 PM FASHION DIRECTOR Temperature - - Respiratory Rate - - Oxygen Saturation - - Inhaled Oxygen Concentration - - Weight 90.9 kg (200 lb 6.4 oz) 08/20/2016 1:26 PM FASHION DIRECTOR Height 175.3 cm (5' 9) 08/20/2016 1:26 PM FASHION DIRECTOR Body Mass Index 29.59 08/20/2016 1:26 PM FASHION DIRECTOR documented in this encounter Progress Notes Linda Ramirez MD - 08/20/2016 5:51 PM CST DIAGNOSES: Encounter Diagnoses Name Primary? Atrial fibrillation status post cardioversion (H) Yes ??? Chest pain, unspecified type HPI: See dictation MEDICATIONS: Current Outpatient Prescriptions Medication Sig Dispense Refill ??? omeprazole (PRILOSEC) 20 MG CR capsule Take 20 mg by mouth daily ??? aspirin 81 MG EC tablet Take 2 tablets (162 mg) by mouth daily 30 tablet ??? losartan (COZAAR) 50 MG tablet Take 1 tablet (50 mg) by mouth daily 90 tablet 1 ??? amLODIPine (NORVASC) 5 MG tablet Take 1 tablet (5 mg) by mouth daily 90 tablet 1 ??? zolpidem (AMBIEN) 5 MG tablet Take 1 tablet (5 mg) by mouth nightly as needed for sleep 30 tablet 5 ALLERGIES No Known Allergies PAST MEDICAL HISTORY: Past Medical History Diagnosis Date ??? Hypertension ??? Arrhythmia afib ablation ??? Hepatitis 15 yrs ago from bad food ??? A-fib (H) ??? Atrial fibrillation (H) ??? Palpitations PAST SURGICAL HISTORY: Past Surgical History Procedure Laterality Date ??? Genitourinary surgery vasectomy ??? Fusion cervical anterior one level 04/15/2014 Procedure: FUSION CERVICAL ANTERIOR ONE LEVEL; Surgeon: Umang Sandoval MD; Location: [facility] ??? Colonoscopy N/A 06/25/2015 Procedure: COLONOSCOPY; Surgeon: Haven Sosa MD; Location: [facility] FAMILY HISTORY: Family History Problem Relation Age of Onset ??? Arthritis Mother ??? Circulatory Father ??? C.A.D. Maternal Grandmother ??? C.A.D. Paternal Grandmother ??? Coronary Artery Disease No family hx of ??? Breast Cancer No family hx of ??? Colon Cancer No family hx of ??? Prostate Cancer No family hx of SOCIAL HISTORY: Social History Social History ??? Marital Status: Spouse Name: N/A ??? Number of Children: 2 ??? Years of Education: N/A Occupational History ??? Social History Main Topics ??? Smoking status: Current Every Day Smoker Types: Cigarettes ??? Smokeless tobacco: Never Used Comment: 1 pack daily ??? Alcohol Use: 0.0 oz/week 0 Standard drinks or equivalent per week ??? Drug Use: No Comment: clean for 13 years- cocaine ??? Sexual Activity: Partners: Female Comment: spouse Other Topics Concern ??? Caffeine Concern No 1 pot of coffee daily ??? Special Diet No regular ??? Exercise No work is physical Social History Narrative Review of Systems: Skin: Negative Eyes: Positive for ENT: Positive for hearing loss Respiratory: Positive for dyspnea on exertion;wheezing Cardiovascular: Positive for;palpitations;chest pain;lightheadedness Gastroenterology: Negative Genitourinary: Negative Musculoskeletal: Positive for Neurologic: Positive for numbness or tingling of hands Psychiatric: Positive for excessive stress Heme/Lymph/Imm: Negative Endocrine: Negative Physical Exam: Vitals: BP 114/77 mmHg Pulse 84 Ht 1.753 m (5' 9) Wt 90.901 kg (200 lb 6.4 oz) BMI 29.58 kg/m2 Constitutional: cooperative, alert and oriented, well developed, well nourished, in no acute distress Skin: warm and dry to the touch, no apparent skin lesions or masses noted Head: normocephalic, no masses or lesions Eyes: pupils equal and round, conjunctivae and lids unremarkable, sclera white, no xanthalasma, EOMSintact, no nystagmus ENT: no pallor or cyanosis, dentition good Neck: carotid pulses are full and equal bilaterally;JVP normal;no carotid bruit Chest: normal breath sounds, clear to auscultation, normal A-P diameter, normal symmetry, normal respiratory excursion, no use of accessory muscles Cardiac: regular rhythm, normal S1/S2, no S3 or S4, apical impulse not displaced, no murmurs, gallops or rubs Abdomen: abdomen soft;BS normoactive Vascular: pulses full and equal Extremities and Back: no edema;no deformities, clubbing, cyanosis, erythema observed Neurological: affect appropriate, oriented to time, person and place;no gross motor deficits ASSESSMENT AND PLAN: See dictation ORDERS AT TODAY'S VISIT: Orders Placed This Encounter Procedures ??? GASTROENTEROLOGY ADULT REFERRAL +/- PROCEDURE ??? EKG 12-lead complete w/read - Clinics (performed today) [place] [address] ION DIRECTOR Linda Ramirez MD - 08/20/2016 5:49 PM CST HISTORY OF PRESENT ILLNESS: This is a new patient evaluation for palpitations and chest discomfort. Mr. Dueñas is a 51-year-old gentleman who I had seen for paroxysmal atrial fibrillation in 2012. At that time he was doing heavy weight lifting and using steroids and testosterone as well as multiple stimulant drinks. He was cardioverted with improvement in the palpitations. He had been doing well since that time and had discontinued the bodybuilding efforts and other circumstances that were going on at the time. Mr. Dueñas, however, had an episode in which he was awakened at 2:30 in the morning with severe chest pressure lasting about a half hour and then subsiding without associated symptoms that he thought was a myocardial infarction in the early part of this year. He presented to the emergency room and wastold that it was due to a hiatal hernia. He was placed on omeprazole. Review of the notes demonstrates that he did have a stress echocardiogram at the end of October that was entirely benign for this chest discomfort. He underwent EGD demonstrating the hiatal hernia anderosions. He never followed up with GI after that, however. He has gotten episodic chest discomfort since that time which is entirely nonexertional and lasts only a couple of minutes and goes away. He has also had flutters in his chest without associated symptoms. Of note, the chest discomfort is usually at rest, and in fact is not ever exertional, and there is no associated lightheadedness, shortness of breath, palpitations, diaphoresis or nausea. He states he gets chest discomfort every day. He otherwise does not relate dyspnea on exertion, PND, orthopnea, pre syncope or syncope with the exception of an episode a month ago after doing the laundry and going upstairs that he felt hot, flushed and very lightheaded associated with some palpitations. He sat down and rested for a minute and then lay in bed and went to work the next day with continued palpitationsor flutters in his left chest. These have resolved now. His primary physician arranged a Zio Patch monitor, and I do have the results. He had multiple triggered events for chest discomfort and lightheadedness, all of which were associated with sinus rhythm or supraventricular ectopic beats. The monitor is in fact quite benign, and he had 1 run of supraventricular tachycardia lasting 17 beats, with a maximum rate of 110 beats per minute, which was in fact asymptomatic. He had rare isolated supraventricular ectopics and couplets with rare isolated ventricular ectopics. He had a 6.4 second episode of ventricular bigeminy. Overall, this is an entirely benign monitor. No clear atrial fibrillation is described either. The patient wore the Zio Patch for 10 days and 16 hours after artifact is removed. ASSESSMENT AND PLAN: A pleasant 51-year-old gentleman with palpitations and atypical chest discomfort. He is hypertensive but not diabetic. He is not known to be dyslipidemic. He does have a prior 30-60 pack year tobacco abuse history, having quit 5 years ago, as well as a remote history of cocaine abuse. He has a family history of peripheral arterial disease without myocardial infarctions, but with his father requiring peripheral intervention in his 40s. He had a negative cardiac catheterization in 2012 and a negative stress echo for this same chest discomfort earlier this year. I think it is unlikely to represent coronary ischemia. I was concerned it could be associated with atrial fibrillation or tachycardia. However, the Zio Patch was triggered with multiple episodes of palpitations as well as chest discomfort, none of which showed significant dysrhythmias. I am concerned that the episode that he had about a month ago, however, in which he was diaphoretic with the palpitations, could be more likely to represent his atrial fibrillation, as it approximated his symptoms several years earlier. He has not otherwise had any substantial episodes like that, but I think it would not be unreasonable to start on a baby aspirin a day presumptively for stroke prevention. I have asked that he see Gastroenterology to ensure that there is no underlying pathology that a baby aspirin would disrupt or worsen, and he is to continue his Prilosec to be taken in the morning(he is currently taking it in the evening). I have recommended that he decrease his caffeine intake. Certainly if he has any further episodes like he describes a month ago with palpitations and lightheadedness, we should arrange an event recorder, but it is unclear when he could have another. We will certainly contact him with the formal results of the Zio Patch interpretation, otherwise return him to the care of Dr. Leticia Armendariz. I would be happy to see him with any change in symptoms. Total time is 45 minutes, 40 in coordination of care and counseling. Linda Ramirez MD cc: Leticia Armendariz MD [facility] [address] [id number] LINDA RAMIREZ MD MT: LUCY Name: FENG DUEÑAS Account: [id number] : 1965 Service Date: 08/20/2016 Document: [id number] ION DIRECTOR documented in this encounter Plan of Treatment Scheduled Referrals Name Type Priority Associated Diagnoses Order S chedule GASTROENTEROLOGY ADULT Referral Routine Atrial fibrillatio n Expected: REFERRAL +/- PROCEDURE status post 08/23 cardioversion (H ) (Approximate), Chest pain, unspecified Expi res: type 08/20/2018 documented as of this encounter Procedures Procedure Name Priority Date/Time Associated Diagnosis Comme nts EKG 12-LEAD Routine 08/20/2016 2:20 PM Atrial fibrillation Re sults for this COMPLETE W/READ - FASHION DIRECTOR status post procedure are in CLINICS cardioversion (H) the result s section. documented in this encounter Results EKG 12-lead complete w/read - Clinics (performed today) (08/20/2016 2:20 PM FASHION DIRECTOR) Narrative This result has an attachment that is no t available. Linda Ramirez MD ECG ORDERABLES documented in this encounter Visit Diagnoses Diagnosis Atrial fibrillation status post cardiove rsion (H) - Primary Chest pain, unspecified type documented in this encounter Care Teams Patient Support Tech Relationship Specialty Start Date End Date Leticia Armendariz MD PCP - General Internal Medicine 03/17/15 Leticia Armendariz MD PCP - Assigned PCP 06/30/14 11/07/[address] [address] Leticia Armendariz MD Assigned PCP 06/30/14 01/06/[address] [address] documented as of this encounter
--- OUTSIDE RECORDS SUMMARY | 2022-06-25 13:52 | XMS_ITS | Encounter Summary ---
:1965 Author Organization [place] Address [address] [place] [address] Care Team Providers Name Role Phone Leticia Armendariz MD Primary Care Provider Leticia Armendariz MD Unavailable Leticia Armendariz MD Unavailable Reason for Visit Reason Onset Date Comments Heart Problem 07/19/2016 feels fluttering in heart, lightheadness, and feels hot Encounter Details Date Type Department Care Team Description 07/19/2016 Telephone [facility] Leticia Armendariz P tomás (feels Clinic Demarco Bender MD fluttering in heart, [address] [place] [facility] alth lightheadness, and feels East [address] hot) [place] [address] Social History Tobacco Use Types Packs/Day Years Used Date Smoking Tobacco: Every Day Cigarettes Smokeless Tobacco: Never Comments: 1/4 pack per day - quit date e of summer Alcohol Use Standard Drinks/Week Comments No 0 (1 standard drink = 0.6 oz pure alcoho l) 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 Date Recorded 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 C/o heart fluttering, lightheadedness, and hot intermittently since last noc. States he had his heart shocked back into rhythm x 4-5 yrs ago. Having same symptoms now. Advised ER for eval. ESTATE ASSOCIATE documented in this encounter Plan of Treatment Not on filedocumented as of this encounter Visit Diagnoses Not on filedocumented in this encounter Care Teams Sales Contractor Relationship Specialty Start Date End Date Leticia Armendariz MD PCP - General Internal Medicine 03/17/15 Leticia Armendariz MD PCP - Assigned PCP 06/30/14 11/07/[address] [address] Leticia Armendariz MD Assigned PCP 06/30/14 01/06/[address] [address] documented as of this encounter
--- OUTSIDE RECORDS SUMMARY | 2022-06-25 13:52 | XMS_ITS | Encounter Summary ---
:1965 Author Organization [facility] Address [address] [place] [address] Care Team Providers Name Role Phone Leticia Armendariz MD Primary Care Provider Nahum Lemus MD Unavailable Karuna Ramirez MD Unavailable [phone] Leticia Armendariz MD Unavailable Lteicia Armendariz MD Unavailable Reason for Visit Reason Comments Forms [facility] disablity & leave f orm request Encounter Details Date Type Department Care Team Description 11/08/2016 Documentation Only [facility] Umang Sandoval Forms ([facility] MD Ramon disablity & leave [facility] form req... 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 [place] [address] Karuna Ramirez MD MD Cardiology 09/16/16 Leticia Armendariz MD Assigned PCP 06/30/14 01/06/19 [facility] [address] [address] documented as of this encounter
--- OUTSIDE RECORDS SUMMARY | 2022-06-25 13:52 | XMS_ITS | Encounter Summary ---
:1965 Author Organization [place] Address [address] [place] [address] Care Team Providers Name Role Phone Leticia Armendariz MD Primary Care Provider Nahum Lemus MD Unavailable Karuna Ramirez MD Unavailable [phone] Leticia Armendariz MD Unavailable Leticia Armendariz MD Unavailable Reason for Visit (Routine) - Closed Specialty Diagnoses / Procedures Referred By Contact Refer red To Contact Radiology / Radiology. Procedures Rh Ct Scan [facility] CT ABDOMEN PELVIS W [address] [place] [address] [address] [place] [address] Phone: Fax: Referral ID Status Reason Start Date Expiration Date Visits Requ ested Visits Authorized [id number] Closed 04/13/2017 04/11/2018 1 1 Encounter Details Date Type Department Care Team Description 04/20/2017 Hospital Encounter M [facility] Leticia Armendariz LQ abdominal pain [facility] MD [place] [address] [facility] [address] [place] [address] [phone] Social History Tobacco Use Types Packs/Day Years Used Date Smoking Tobacco: Every Day Cigarettes Smokeless Tobacco: Never Comments: 1 pack daily Alcohol Use Standard Drinks/Week Comments Yes 0 (1 standard drink = 0.6 oz pure alcoho l) 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 Date Recorded 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 documented in this encounter Results CT Abdomen Pelvis w [...] 2, image 71 and image 83 of sarkis s 3 measuring approximately 1 cm in [...] encounter Visit Diagnoses Diagnosis LLQ abdominal pain Abdominal pain, left lower quadrant documented in this encounter Administered Medications Inactive Administered Medications - up to 3 most recent administrations Medication Order MAR Action Action Date Dose Rate Site 0.9% sodium chloride BOLUS New Bag 04/20/2017 9:46 AM CDT 55 mLs Intravenous, 1,000 mL, ONCE, On Tue04/20/17 at 0945, For 1 dose iopamidol (ISOVUE-370) solution 500 mL Given 04/20/2017 9:46 AM CDT 100 mLs 500 mL, Intravenous, ONCE, On Tue04/20/17 at 0945, For 1 dose documented in this encounter Care Teams Probation Manager Relationship Specialty Start Date End Date Leticia Armendariz MD PCP - General Internal Medicine 03/17/15 Leticia Armendariz MD PCP - Assigned PCP 06/30/14 11/07/18 [facility] [address] [place] [address] Nahum Lemus MD 09/16/16 [facility] [address] [facility] [place] [id number] Karuna Ramirez MD MD Cardiology 09/16/16 Leticia Armendariz MD Assigned PCP 06/30/14 01/06/[address] [address] documented as of this encounter
--- OUTSIDE RECORDS SUMMARY | 2022-06-25 13:52 | XMS_ITS | Encounter Summary ---
:1965 Author Organization [place] Address [address] [place] [address] Care Team Providers Name Role Phone Leticia Armendariz MD Primary Care Provider Nahum Lemus MD Unavailable Karuna Ramirez MD Unavailable [phone] Leticia Armendariz MD Unavailable Leticia Armendariz MD Unavailable Reason for Visit Reason Comments Musculoskeletal Problem bilateral hip pain Encounter Details Date Type Department Care Team Description 04/28/2017 Office Visit [facility] Karime Castro hip pain (Primary Dx); Sports Medicine DO Irina Primary osteoarthritis of both hips; Clinic [facility] [place] [address] [place] [address] [address] [facility] [address] [place] [address] [phone] (Wo rk) Social History Tobacco Use Types Packs/Day Years Used Date Smoking Tobacco: Every Day Cigarettes Smokeless Tobacco: Never Comments: 1 pack daily Alcohol Use Standard Drinks/Week Comments Yes 0 (1 standard drink = 0.6 oz pure alcoho l) 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 Date Recorded 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 Please find below your visit diagnosis and the plan going forward. 1. Bilateral hip pain 2. Primary osteoarthritis of both hips 3. Femoral acetabular impingement Discussed exam and xray - osteoarthritis, impingement and bony lesion seen on CT and hip xray MRI of your left hip has been ordered to further access bony lesion in left hip. Schedule with [place] ([phone]). Once you know the date of your MRI, please call my office and schedule a follow-up visit for 2 days after that. Shown how to sign up for Mychart Injection options for osteoarthritis: cortisone, PRP (platelet rich plasma, $450/joint) If pain is not well controlled then can consider hip replacement Follow up on MyChart or in the office to discuss results. Call direct clinic number [[phone]] at any time with questions or concerns. Karime Castro DO CAQSM [facility] Website: [email or web address] Twitter: [email or web address] documented in this encounter Progress Notes Karime Castro DO - 04/28/2017 10:40 AM CDT ASSESSMENT & PLAN ICD-10-CM 1. Bilateral hip pain M25.551 XR Pelvis and Hip Right 2 Views M25.552 2. Primary osteoarthritis of both hips M16.0 MR Hip Left w/o Contrast 3. Femoral acetabular impingement M25.859 MR Hip Left w/o Contrast bilateral Discussed exam and xray - osteoarthritis, impingement and bony lesion seen on CT MRI of your left hip has been ordered to further access bony lesion in left hip. Shown how to sign up for Mychart Injection options for osteoarthritis: cortisone, PRP (platelet rich plasma, $450/joint) If pain is not well controlled then can consider hip replacement Follow up on MyChart or in the office to discuss results. Call direct clinic number [[phone]] at any time with questions or concerns. ----- SUBJECTIVE Feng Perez is a/an 52 year old male who is seen in consultation at the request of Dr. Armendariz for evaluation of bilateral anterior hip pain. The patient is seen by themselves. Onset: many years(s) ago. Reports insidious onset without acute precipitating event. Worsened by: squatting, long car drives, prolonged sitting Better with: rest, change of positions Quality: daily achy pain, intermittent sharp pain Pain Scale (maximum/current)/10: 03/14 / 11/12 Treatments tried: rest/activity avoidance Orthopedic history: YES - Date: at 19 y.o. fell 4 stories, heavy bodybuilding 4 years ago, lot of groin pain with lifting Relevant surgical history: NO Patient Social History: works at [employer] He has a history of diverticulitis. Patient's past medical, surgical, social, and family histories were reviewed today and no changes are noted. REVIEW OF SYSTEMS: 10 point ROS is negative other than symptoms noted above in HPI, Past Medical History or as stated below Constitutional: NEGATIVE for fever, chills, change in weight Skin: NEGATIVE for worrisome rashes, moles or lesions GI/: NEGATIVE for bowel or bladder changes Neuro: NEGATIVE for weakness, dizziness or paresthesias OBJECTIVE: BP 128/86 Ht 5' 10 (1.778 m) Wt 200 lb (90.7 kg) BMI 28.7 kg/m2 General: healthy, alert and in no distress HEENT: no scleral icterus or conjunctival erythema Skin: no suspicious lesions or rash. No jaundice. CV: no pedal edema Resp: normal respiratory effort without conversational dyspnea Psych: normal mood and affect Gait: normal steady gait with appropriate coordination and balance Neuro: Normal light sensory exam of lower extremity MSK: BILATERAL HIP Inspection: No obvious deformity or asymmetry, level pelvis Palpation: Tender about the anterior groin/joint line. Otherwise all other landmarks are nontender. Active Range of Motion: Flexion limited by pain, IR limited by pain, ER full Strength: Flexion 5-/5, adduction 5/5, abduction 5/5 Special Tests: Positive: Logroll, anterior impingement (FADIR) Independent visualization of the below image: PELVIS AND HIP RIGHT TWO VIEWS 04/28/2017 11:07 AM ?? HISTORY: Pain in right hip. Pain in left hip. ? IMPRESSION: Bilateral proximal femoral mild hypertrophic changes at the head and neck junctions which could result in cam-type impingement. Hip joint space widths appear within normal limits. ?? GABBY SO MD My additional comments: Bilateral hip joint space narrowing, right greater than left CT ABDOMEN AND PELVIS WITH CONTRAST 04/20/2017 9:53 AM ?? HISTORY: Left lower quadrant pain and diarrhea. ? IMPRESSION: 1. No evidence of bowel obstruction, diverticulitis or appendicitis. No urinary tract calculi are appreciated. Simple right renal cyst is noted. Abdominal and pelvic organs are otherwise within normal limits. 2. Well-corticated bony fragment in the left acetabulum. No obvious donor site but probably from old cartilaginous injury. Followup as clinically warranted. ?? FALLON ORTEZ MD Patient's conditions were thoroughly discussed during today's visit with greater than 50% of the visit spent counseling the patient with total time spent [id number] with the patient being 25 minutes. Karime Castro DO [facility] documented in this encounter Nursing Dexter Toribio - 04/28/2017 10:40 AM CDT Chief Complaint Patient presents with ??? Musculoskeletal Problem bilateral hip pain Initial BP 128/86 Ht 5' 10 (1.778 m) Wt 200 [...] filedocumented as of this encounter Results MR Hip Left w/o Contrast (05/02/2017 10:22 AM CDT) Anatomical Region Laterality Modality Left Hip, SUBRAD MR GARRICK, UMP MR GARRICK Magn [facility] Resonance Specimen (Source) Anatomical Location Collection Method [...] identified. SARAH HERNANDEZ MD Karime Castro DO IMG MRI ORDERABLES XR Pelvis and Hip Right 2 Views [...] ar within normal limits. GABBY SO MD Si[place]a Irina Castro DO IM DIAGNOSTIC IMAGING ORDER WHITNEY documented in this encounter Visit Diagnoses Diagnosis Bilateral hip pain - Primary Pain in joint, pelvic region and thigh Primary osteoarthritis of both hips Primary localized osteoarthrosis, pelvic region and thigh Femoral acetabular impingement Enthesopathy of hip region Bilateral hip pain Pain in joint, pelvic region and thigh Femoral acetabular impingement Enthesopathy of hip region Primary osteoarthritis of both hips Primary localized osteoarthrosis, pelvic region and thigh documented in this encounter Care Teams School Operations Manager Relationship Specialty Start Date End Date Leticia Armendariz MD PCP - General Internal Medicine 03/17/15 Leticia Armendariz MD PCP - Assigned PCP 06/30/14 11/07/18 [facility] [address] [address] Nahum Lemus MD 09/16/16 [facility] [address] [facility] [place] [address] Karuna Ramirez MD MD Cardiology 09/16/16 Leticia Armendariz MD Assigned PCP 06/30/14 01/06/19 [facility] [address] [place] [address] documented as of this encounter
--- OUTSIDE RECORDS SUMMARY | 2022-06-25 13:52 | XMS_ITS | Encounter Summary ---
:1965 Author Organization [place] Address [address] [place] [address] Care Team Providers Name Role Phone Leticia Armendariz MD Primary Care Provider Nahum Lemus MD Unavailable Karuna Ramirez MD Unavailable [phone] Karime Castro DO Unavailable Tito Almonte MD Unavailable Leticia Armendariz MD Unavailable Leticia Armendariz MD Unavailable Encounter Details Date Type Department Care Team Description 03/21/2017 [facility] Leticia Wilson MD [address] [address] [place], [place] [id number] (Wo rk) Social History Tobacco Use Types Packs/Day Years Used Date Smoking Tobacco: Every Day Cigarettes Smokeless Tobacco: Never Comments: 1 pack daily Alcohol Use Standard Drinks/Week Comments Yes 0 (1 standard drink = 0.6 oz pure alcoho l) 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 Date Recorded 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 [place] [address] Karuna Ramirez MD MD Cardiology 09/16/16 Karime Castro DO Referring Physician Orthopedics 05/13/17 [facility] [address] [facility] [address] [place], [place] [phone] Tito Almonte MD MD Orthopedics 05/13/[address] [place], [place] [address] Leticia Armendariz MD Assigned PCP 06/30/14 01/06/19 [place] [address] [place] [address] documented as of this encounter
--- OUTSIDE RECORDS SUMMARY | 2022-06-25 13:52 | XMS_ITS | Encounter Summary ---
:1965 Author Organization [place] Address [address] [place] [address] Care Team Providers Name Role Phone Leticia Armendariz MD Primary Care Provider Nahum Lemus MD Unavailable Karuna Ramirez MD Unavailable [phone] Leticia Armendariz MD Unavailable Leticia Armendariz MD Unavailable Reason for Visit Reason Onset Date Comments Refill Request 09/21/2016 Losartan Encounter Details Date Type Department Care Team Description 09/21/2016 Refill [facility] Leticia Armendariz Refill Request (Losartan) Demarco Bender MD [address] [place] [facility] [address] [address] Social History Tobacco Use Types Packs/Day Years Used Date Smoking Tobacco: Every Day Cigarettes Smokeless Tobacco: Never Comments: 1 pack daily Alcohol Use Standard Drinks/Week Comments Yes 0 (1 standard drink = 0.6 oz pure alcoho l) 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 Date Recorded 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 O CERTIFIED NETWORK ASSOCIATE Telephone Encounter - Albertina Christiansen MA - 09/21/2016 9:59 AM CST Pending Prescriptions: Disp Refills losartan (COZAAR) 50 MG tablet 90 tab*1 Sig: Take 1 tablet (50 mg) by mouth daily Last OV: 08/20/16 Last refills: 08/20/16 O CERTIFIED NETWORK ASSOCIATE documented in this encounter Plan of Treatment Not on filedocumented as of this encounter Visit Diagnoses Diagnosis Atrial fibrillation status post cardiove rsion - Primary documented in this encounter Care Teams Supervisor Painting Relationship Specialty Start Date End Date Leticia Armendariz MD PCP - General Internal Medicine 03/17/15 Leticia Armendariz MD PCP - Assigned PCP 06/30/14 [facility] [address] [place] [address] Nahum Lemus MD 09/16/16 [place] [facility] [address] [facility] [place] [id number] Karuna Ramirez MD MD Cardiology 09/16/16 Leticia Armendariz MD Assigned PCP 06/30/14 01/06/[address] [facility] [address] [place] [address] documented as of this encounter
--- OUTSIDE RECORDS SUMMARY | 2022-06-25 13:52 | XMS_ITS | Encounter Summary ---
:1965 Author Organization [facility] Address [address] [place] [address] Care Team Providers Name Role Phone Leticia Armendariz MD Primary Care Provider Nahum Lemus MD Unavailable Karuna Ramirez MD Unavailable [phone] Leticia Armendariz MD Unavailable Leticia Armendariz MD Unavailable Reason for Visit Reason Comments Medication Refill Encounter Details Date Type Department Care Team Description 11/27/2016 [facility] Leticia Armendariz Medication Refill Dannemora MD [address] [place] [address] [phone] [place], [place] [address] (Wo rk) Social History Tobacco Use Types Packs/Day Years Used Date Smoking Tobacco: Every Day Cigarettes Smokeless Tobacco: Never Comments: 1 pack daily Alcohol Use Standard Drinks/Week Comments Yes 0 (1 standard drink = 0.6 oz pure alcoho l) 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 Date Recorded 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 Telephone Encounter - Luz Maria Solis MD - 11/29/2016 3:48 PM CDT Med done, pl fax documented in this encounter Plan of Treatment Not on filedocumented as of this encounter Visit Diagnoses Diagnosis Primary insomnia Persistent disorder of initiating or adrianne ntaining sleep documented in this encounter Care Teams Management Instructor Relationship Specialty Start Date End Date Leticia Armendariz MD PCP - General Internal Medicine 03/17/15 Leticia Armendariz MD PCP - Assigned PCP 06/30/14 11/07/[address] [address] Nahum Lemus MD 09/16/16 [facility] [address] [facility] [place] [address] Karuna Ramirez MD MD Cardiology 09/16/16 Leticia Armendariz MD Assigned PCP 06/30/14 01/06/[address] [address] documented as of this encounter
--- OUTSIDE RECORDS SUMMARY | 2022-06-25 13:52 | XMS_ITS | Encounter Summary ---
:1965 Author Organization [facility] Address [address] [place] [address] Care Team Providers Name Role Phone Leticia Armendariz MD Primary Care Provider Nahum Lemus MD Unavailable Karuna Ramirez MD Unavailable [phone] Leticia Armendariz MD Unavailable Leticia Armendariz MD Unavailable Reason for Visit Reason Onset Date Comments Refill Request 09/17/2016 amlodipine Encounter Details Date Type Department Care Team Description 09/17/2016 Refill [facility] Leticia Armendariz Refill Request Demarco Bender MD (amlodipine) [address] [place] [facility] [address] [phone] Social History Tobacco Use Types Packs/Day Years Used Date Smoking Tobacco: Every Day Cigarettes Smokeless Tobacco: Never Comments: 1 pack daily Alcohol Use Standard Drinks/Week Comments Yes 0 (1 standard drink = 0.6 oz pure alcoho l) 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 Date Recorded 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 ONAL PSYCHIATRIC DIRECTOR Telephone Encounter - TylerElba - 09/17/2016 2:36 PM CST amlodipine Last Written Prescription Date: 03/29/16 Last Fill Quantity: 90, # refills: 1 Last Office Visit with [facility], [facility] or [facility] prescribing provider: 08/02/16 Future Office Visit: BP Readings from Last 3 Encounters: 08/20/16 114/77 08/02/16 138/68 06/15/16 125/88 ONAL PSYCHIATRIC DIRECTOR documented in this encounter Plan of Treatment Not on filedocumented as of this encounter Visit Diagnoses Diagnosis Atrial fibrillation status post cardiove rsion - Primary documented in this encounter Care Teams Stitch Bonding Machine Tender Helper Relationship Specialty Start Date End Date Leticia Armendariz MD PCP - General Internal Medicine 03/17/15 Leticia Armendariz MD PCP - Assigned PCP 06/30/14 11/07/18 [facility] [address] [address] Nahum Lemus MD 09/16/16 [facility] [facility] [address] [facility] [place] [address] Karuna Ramirez MD MD Cardiology 09/16/16 Leticia Armendariz MD Assigned PCP 06/30/14 01/06/19 [facility] [address] [place] [address] documented as of this encounter
--- OUTSIDE RECORDS SUMMARY | 2022-06-25 13:53 | XMS_ITS | Encounter Summary ---
:1965 Author Organization [facility] Address [address] [place] [address] Care Team Providers Name Role Phone Leticia Armendariz MD Primary Care Provider Leticia Armendariz MD Unavailable Leticia Armendariz MD Unavailable Reason for Visit Reason Onset Date Comments Other 11/04/2015 fax referral to [facility] Encounter Details Date Type Department Care Team Description 11/04/2015 Telephone [facility] Leticia Armendariz Other ( fax referral to Clinic MD [facility] Rivera) [address]idi Faby [facility] [address] [place] [id number] [id number] Social History Tobacco Use Types Packs/Day Years Used Date Smoking Tobacco: Every Day Cigarettes Smokeless Tobacco: Never Alcohol Use Standard Drinks/Week Comments No 0 (1 standard drink = 0.6 oz pure alcoho l) 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 Date Recorded 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 Armendariz and referred to [facility]. He tried to call for an appt, but was told we need to send referral to their office before he can schedule an appt. Referral printed and faxed to [place] [facility] documented in this encounter Plan of Treatment Not on filedocumented as of this encounter Visit Diagnoses Not on filedocumented in this encounter Care Teams Title I Instructional Assistant Relationship Specialty Start Date End Date Leticia Armendariz MD PCP - General Internal Medicine 03/17/15 Leticia Armendariz MD PCP - Assigned PCP 06/30/14 11/07/[address] [address] Leticia Armendariz MD Assigned PCP 06/30/14 01/06/[address] [address] documented as of this encounter
--- OUTSIDE RECORDS SUMMARY | 2022-06-25 13:53 | XMS_ITS | Encounter Summary ---
:1965 Author Organization [facility] Address [address] [place] [address] Care Team Providers Name Role Phone Leticia Armendariz MD Primary Care Provider Leticia Armendariz MD Unavailable Leticia Armendariz MD Unavailable Reason for Visit (Routine) - Closed Specialty Diagnoses / Procedures Referred By Contact Refer red To Contact Radiology / Radiology. 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 spinal fusion [address] [place], [place] [facility] [address] [phone] [address] [place] [address] Social History Tobacco Use Types Packs/Day Years Used Date Smoking Tobacco: Every Day Cigarettes Smokeless Tobacco: Never Comments: 1/4 pack per day - quit date e summer Alcohol Use Standard Drinks/Week Comments No 0 (1 standard drink = 0.6 oz pure alcoho l) 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 Date Recorded 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 Medications at Time of Discharge Medication Sig Dispensed Refills Start Date End Date amLODIPine (NORVASC) 5 MG Take 1 tablet (5 90 tablet 1 03/0609/17/2016 tabletIndications: Atrial mg) by mouth daily fibrillation status post cardioversion (H) buPROPion (WELLBUTRIN SR) Take 1 tablet once 60 tablet 2 08/02/2016 150 MG 12 hr daily and increase tabletIndications: Tobacco to 1 tablet twice use disorder daily after 4 to 7 days cyclobenzaprine (FLEXERIL) Take 0.5-1 tablets 90 tablet 1 0 03/29/2016 06/11/2016 10 MG tabletIndications: (5-10 mg) by mouth Cervicalgia 3 times daily as needed for muscle spasms losartan (COZAAR) 50 MG Take 1 tablet (50 90 tablet 1 03/2909/21/2016 tabletIndications: Atrial mg) by mouth daily fibrillation status post cardioversion (H) [id number] 0 08/02/2016 rtisone (CORTISPORIN) [id number] otic suspension zolpidem (AMBIEN) 5 MG Take 1 tablet (5 30 tablet 5 016 11/27/2016 tabletIndications: Primary mg) by mouth insomnia nightly as needed for sleep documented as of this encounter Plan of Treatment Not on filedocumented as of this encounter Procedures Procedure Name Priority Date/Time Associated Diagnosis Comme [facility] MR CERVICAL SPINE Routine 05/21/2016 8:39 AM Status post cervi hector Results for this W/O CONTRAST CDT spinal fusion procedure are in the results section. documented in this encounter Results MR Cervical Spine w/o Contrast (05/21/2016 8:39 AM CDT) Anatomical Region Laterality Modality Spine, SUBRAD MR NEURO, UMP MR SPINE Mag netic Resonance Specimen (Source) Anatomical Location Collection Method / Collectio n Time Received Time / Laterality Volume Impressions 05/21/2016 9:25 AM CDT IMPRESSION: 1. Prior C5-C6 anterior discectomy and f usion. Alignment is normal and there is no stenosis. 2. C3-C4 degenerative disc disease with mild central and mild bilateral neural foraminal stenosis. Thi s is stable and unchanged. 3. Small central disc protrusion at C4-C 5 without stenosis. This is also stable and unchanged. ARYAN HONG MD Narrative 05/21/2016 9:25 AM CDT MR CERVICAL SPINE WITHOUT CONTRAST May 21, 2016 8:39 AM HISTORY: Arthrodesis status. TECHNIQUE: Multiplanar multisequence mary jo ges were obtained through the cervical spine without contrast. COMPARISON: 05/14/2015. FINDINGS: The patient has undergone prio r anterior discectomy and fusion procedure at C5-C6. There is norm al posterior alignment. There is no evidence for craniovertebral or ce rvical medullary junction abnormality. The cervical cord is normal in morphology and signal characteristics. Metallic artifact obscu res a good portion of the marrow of the C5 and C6 vertebral segmen ts. Disc space narrowing is present at C3-C4 similar to that seen on the prior exam. C2-C3: Normal. C3-C4: There is some broad-based disc bu lging and uncinate spurring which is causing some mild central and m ild bilateral neural foraminal stenosis. C4-C5: Minimal central disc bulge or dis c protrusion is present. There is no significant stenosis. C5-C6: This level has been fused. There is no stenosis. C6-C7: Minimal disc bulge. No stenosis. C7-T1: Normal. Paraspinal soft tissues: Normal as visua lized. Procedure Note Aryan Hong MD - 05/21/2016Form atting of this note might be different from the original. MR CERVICAL SPINE WITHOUT CONTRAST [facility] 2015 8:39 AM HISTORY: Arthrodesis status. TECHNIQUE: Multiplanar multisequence mary jo ges were obtained through the cervical spine without contrast. COMPARISON: 05/14/2015. FINDINGS: The patient has undergone prio r anterior discectomy and fusion procedure at C5-C6. There is norm al posterior alignment. There is no evidence for craniovertebral or ce rvical medullary junction abnormality. The cervical cord is normal in morphology and signal characteristics. Metallic artifact obscu res a good portion of the marrow of the C5 and C6 vertebral segmen ts. Disc space narrowing is present at C3-C4 similar to that seen on the prior exam. C2-C3: Normal. C3-C4: There is some broad-based disc bu lging and uncinate spurring which is causing some mild central and m ild bilateral neural foraminal stenosis. C4-C5: Minimal central disc bulge or dis c protrusion is present. There is no significant stenosis. C5-C6: This level has been fused. There is no stenosis. C6-C7: Minimal disc bulge. No stenosis. C7-T1: Normal. Paraspinal soft tissues: Normal as visua lized. IMPRESSION: 1. Prior C5-C6 anterior discectomy and f usion. Alignment is normal and there is no stenosis. 2. C3-C4 degenerative disc disease with mild central and mild bilateral neural foraminal stenosis. Thi s is stable and unchanged. 3. Small central disc protrusion at C4-C 5 without stenosis. This is also stable and unchanged. ARYAN HONG MD Jasmin Yu NITRO WORKER TEAM LEADER IMG MRI ORDERABLES documented in this encounter Visit Diagnoses Diagnosis Status post cervical spinal fusion Arthrodesis status documented in this encounter Care Teams Production Expert Relationship Specialty Start Date End Date Leticia Armendariz MD PCP - General Internal Medicine 03/17/15 Leticia Armendariz MD PCP - Assigned PCP 06/30/14 11/07/18 [facility] [address] [place] [address] Leticia Armendariz MD Assigned PCP 06/30/14 01/06/19 [facility] [address] [place] [address] documented as of this encounter
--- OUTSIDE RECORDS SUMMARY | 2022-06-25 13:53 | XMS_ITS | Encounter Summary ---
:1965 Author Organization [facility] Address [address] [place] [address] Care Team Providers Name Role Phone Leticia Armendariz MD Primary Care Provider Leticia Armendariz MD Unavailable Leticia Armendariz MD Unavailable Reason for Visit Reason Onset Date Comments Patient Reminder 06/14/2016 KATARINA Encounter Details Date Type Department Care Team Description 06/14/2016 Telephone [facility] Pain Ro [place], Patient Reminder (KATARINA) [place] [address] [facility] [address] [place] [address] [address] [address] [address] [phone] [place] [address] Social History Tobacco Use Types Packs/Day Years Used Date Smoking Tobacco: Every Day Cigarettes Smokeless Tobacco: Never Comments: 1/4 pack per day - quit date e of summer Alcohol Use Standard Drinks/Week Comments No 0 (1 standard drink = 0.6 oz pure alcoho l) 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 Date Recorded 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 Reminded patient that they also need a shuttle van driver. Karen Merino [facility] documented in this encounter Plan of Treatment Not on filedocumented as of this encounter Visit Diagnoses Not on filedocumented in this encounter Care Teams Mechanic General Operational Test Relationship Specialty Start Date End Date Leticia Armendariz MD PCP - General Internal Medicine 03/17/15 Leticia Armendariz MD PCP - Assigned PCP 06/30/14 11/07/[address] [address] Leticia Armendariz MD Assigned PCP 06/30/14 01/06/[address] [address] documented as of this encounter
--- OUTSIDE RECORDS SUMMARY | 2022-06-25 13:53 | XMS_ITS | Encounter Summary ---
:1965 Author Organization [facility] Address [address] [place] [address] Care Team Providers Name Role Phone Leticia Armendariz MD Primary Care Provider Leticia Armendariz MD Unavailable Leticia Armendariz MD Unavailable Reason for Visit Reason Onset Date Comments Patient Request 03/12/2016 refill Encounter Details Date Type Department Care Team Description 03/12/2016 Refill [facility] Leticia Armendariz Patient Request (refill) Demarco Bender MD [address] [phone] [id number] Social History Tobacco Use Types Packs/Day Years Used Date Smoking Tobacco: Every Day Cigarettes Smokeless Tobacco: Never Alcohol Use Standard Drinks/Week Comments No 0 (1 standard drink = 0.6 oz pure alcoho l) 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 Date Recorded 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 prescribing provider: 11/04/15 Future Office visit: Next 5 appointments (look out 90 days) Mar 29, 2016 9:20 AM SHORT with Leticia Armendariz MD [facility] ([facility] Renny Gordon [facility] [address] Routing refill request to provider for review/approval because: Drug not on the [facility], [facility] or Health refill protocol or controlled substance. Pt out of medication and leaving town today, requesting a refill to get him to 03/29/[address] Armendariz. Telephone Encounter - Chantelle Lockwood - 03/12/2016 10:17 AM CDT Patient also wanted me to add that he is out of medication. Telephone Encounter - Chantelle Lockwood - 03/12/2016 10:14 AM CDT Reason for Call: Medication or medication refill: Do you use a [facility]? Name of the pharmacy and phone number for the current request: nena key Name of the medication requested: cyclobenzaprine 10mg Other request: patient would like to get enough medication to get him to his appt leaves for out of town today Can we leave a detailed message on this number? YES Phone number patient can be reached at: Home number on file [phone] (home) Best Time: any Call taken on 03/12/2016 at 10:14 AM by Chantelle Lockwood documented in this encounter Plan of Treatment Not on filedocumented as of this encounter Visit Diagnoses Diagnosis Cervicalgia - Primary documented in this encounter Care Teams Wedding Photographer Relationship Specialty Start Date End Date Leticia Armendariz MD PCP - General Internal Medicine 03/17/15 Leticia Armendariz MD PCP - Assigned PCP 06/30/14 11/07/[address] [address] Leticia Armendariz MD Assigned PCP 06/30/14 01/06/[address] [address] documented as of this encounter
--- OUTSIDE RECORDS SUMMARY | 2022-06-25 13:53 | XMS_ITS | Encounter Summary ---
:1965 Author Organization [facility] Address [address] [place] [address] Care Team Providers Name Role Phone Leticia Armendariz MD Primary Care Provider Leticia Armendariz MD Unavailable Leticia Armendariz MD Unavailable Reason for Visit Reason Comments Pain KATARINA Encounter Details Date Type Department Care Team Description 06/01/2016 Radiology [facility]io Harmon vical spondylosis without myelopathy (Primary Dx); Office Visit Pain Management MD Julia Cervical rad [address] [place] [address] Social History Tobacco Use Types Packs/Day Years Used Date Smoking Tobacco: Every Day Cigarettes Smokeless Tobacco: Never Comments: 1/4 pack per day - quit date e summer Alcohol Use Standard Drinks/Week Comments No 0 (1 standard drink = 0.6 oz pure alcoho l) 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 Date Recorded 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 Julia Harmon Medications used: Lidocaine (anesthetic) In the skin only. Omnipaque - contrast. Valium 2.5mg Oral at 3:00 p.m. Sedation medication was used today. You should not: Drive, operate machinery, drink any type of alcohol, or sign any legal documents. This medication can make you feel groggy for several hours. ??? If you experience any of the following, call the pain center nursing line during work hours at [phone] or on-call physician after hours at [phone]: -Fever over 100 degree F -Swelling, bleeding, redness, drainage, warmth at the injection site Phone #s: Appointment scheduling line: [phone] documented in this encounter Progress Notes Julia Harmon MD - 06/01/2016 9:32 PM CDT [facility] - Procedure Note ABORTED Date of Visit: 06/01/16 Indications: Feng Perez is a 51-year-old male who is seen at the referral of Jasmin Yu APRN CNP for cervical epidural steroid injection. The patient describes pain of the posterior cervicalregion (from the base to the entire neck). He reports shooting pain, tingling, numbness, and weakness of the left upper extremity into the hand. He has more recently experienced increasing pain on the right as well, particularly into the shoulder. He reports a deep squeeze and tight, horrible daily headache. The patient has had limited improvement with conservative treatment. He is s/p C5-6 ACDF. Of note, the patient reports anxiety with needles. He states that he has tolerated benzodiazepines (e.g. Valium) in the past. He notes that he has difficulty coming out of deeper sedation. This was discussed today; the patient was agreeable to use of an oral anxiolytic prior to the procedure, with the understanding that he may require IV sedation if unable to tolerate today's injection. Electronic Chart Review: Patient history, pertinent diagnostic studies, vitals, allergies, and medications were reviewed. Review of Systems: The patient denies recent fever, chills, illness, use of antibiotics, oral steroids, or anticoagulants. No allergy to local anesthetic, contrast dye, or steroid. Physical Examination: BP 100/72 mmHg Pulse 92 SpO2 97% GEN: Alert. Well developed, well nourished. CV/Resp: Symmetric chest wall excursion. Non-labored breathing. No audible wheezing. Skin: No rashes/lesions of posterior torso. Extremities: Distal extremities warm, well perfused. Neuro/MSK: Give-way weakness throughout left upper extremity (delts, biceps, triceps, pronator teres). Imagin05/21/16 MRI cervical spine: The patient has undergone prior anterior discectomy and fusionprocedure at C5-C6. There is normal posterior alignment. There is no evidence for craniovertebral orcervical medullary junction abnormality. The cervical cord is normal in morphology and signal charact eristics. Metallic artifact obscures a good portion of the marrow of the C5 and C6 vertebral segments. Disc space narrowing is present at C3-C4 similar to that seen on the prior exam. C2-C3: Normal. C3-C4: There is some broad-based disc bulging and uncinate spurring which is causing some mild central and mild bilateral neural foraminal stenosis. C4-C5: Minimal central disc bulge or disc protrusion ispresent. There is no significant stenosis. C5-C6: This level has been fused. There is no stenosis. C6-C7: Minimal disc bulge. No stenosis. C7-T1: Normal. Paraspinal soft tissues: Normal as visualized. Impression: 1. Prior C5- C6 anterior discectomy and fusion. Alignment is normal and there is no stenosis. 2. C3-C4 degenerative disc disease with mild central and mild bilateral neural foraminal stenosis. This is stable and unchanged. 3. Small central disc protrusion at C4-C5 without stenosis. This is also stable and unchanged. Procedure Description: Pre-procedure Diagnosis: Cervical spondylosis; Cervical radiculitis/radiculopathy Post-procedure Diagnosis: Cervical spondylosis; Cervical radiculitis/radiculopathy Procedure performed: C7-T1 interlaminar epidural steroid insurance underwriter: Julia Harmon MD Local anesthetic: 4 mL 1% lidocaine (preservative free) Oral sedation: Valium 2.5 mg PO Medication solution (injectate): Not administered Contrast: 0.75 mL of Omnipaque 300 used, 9.25 mL discarded Sterile prep/cleansing solution: ChloraPrep The procedure and risks were explained, and informed written consent was obtained from the patient. Risks include but are not limited to: infection, bleeding, headache, increased pain, damage to soft tissue, nerve, muscle, and vasculature structures, paralysis, and stroke. Risks of steroid include butare not limited to: medication reaction, mood/sleep disruption, increased blood pressure, increased blood sugar, effects on eye conditions such as cataracts/glaucoma, effects on bone/tissue structure/health. The procedure site was marked using a disposable pen. Immediately prior to the start of the pro cedure, a time out safety check was conducted to confirm correct patient, procedure, and laterality. The patient's heart rate and oxygen saturation were monitored throughout the procedure. The patient was assisted into a prone on the fluoroscopy table with use of a head/torso cushion for patient positioning and comfort. The target vertebral levels were identified with use of fluoroscopy in AP view. The skin was prepped and draped in aseptic fashion. A 25-gauge, 1.5 inch needle was used to anesthetize the skin and subcutaneous tissue entry site with local anesthetic. Under fluoroscopic visualization, a 20-gauge, 3.5 inch Tuohy epidural needle was slowly advanced towards the epidural space. The latter part of the needle advancement was guided with fluoroscopy in the lateral and obliqueviews. Loss of resistance technique to normal saline, as well as injection of non-ionic contrast wasused for identification of the epidural space. During the procedure the patient was noted to have vasovagal-type reaction, including diaphoresis, nausea, lightheadedness, and mild hypotension. Decisionwas made to abort the procedure. The stylet was reinserted, and the needle was removed. Cold compress was placed on the patient's neck and oral hydration was provided. His symptoms gradually improved. He was observed for a prolonged period of time in the post- procedure suite. His blood pressure remained stable. No new motor deficits were noted following the procedure. The patient was asymptomatic, stable, and able to ambulate on discharge home. Post-procedure instructions were provided. Pre-procedure pain score: 5/10 neck, 3/10 arm/shoulder Post-procedure pain score: 4/10 neck, 3/10 arm/shoulder Assessment/Plan: Feng Perez is a 51-year-old male who presented to clinic for cervical interlaminar epidural steroid injection. Procedure was aborted due to vasovagal-type reaction. 1. Following today's procedure, the patient was advised to contact the [facility] for any of the following: Fever, chills, or night sweats New onset of pain, numbness, or weakness Any questions/concerns regarding the procedure If unable to contact the Pain Center, the patient was instructed to go to a local Emergency Room for any complications. 2. He will return to clinic for repeat attempt at cervical interlaminar epidural steroid injection. This will be scheduled with IV sedation, given procedural anxiety. Of note, would also consider IV fluid hydration given tendency towards hypotension. Julia Harmon MD [facility] documented in this encounter Nursing Notes Mary Franklin RN - 06/01/2016 4:19 PM CDT Discharge Information IV Discontiued Time: [...] present to accompany patient home? Yes Signature/Title: Mary Franklin RN Traffic Signal Repairer [facility] [place] Karen Xiong RN - 06/01/2016 3:02 PM CDT Verbal order Valium 2.5mg PO, #1, now. Given 1500 Julia Harmon MD/ Gabby Xiong, MSN, RN- Traffic Signal Repairer [facility] Karen Dale CMA - 06/01/2016 2:19 PM CDT Injection intake: If this procedure [...] active infection? NO Does patient have a hack driver? Yes Is patient or ? Not Applicable Are the vital signs normal? Yes documented in this encounter Plan of Treatment Not on filedocumented as of this encounter Visit Diagnoses Diagnosis Cervical spondylosis without myelopathy - Primary Cervical radiculitis Brachial neuritis or radiculitis nos documented in this encounter Care Teams Science Technician Relationship Specialty Start Date End Date Leticia Armendariz MD PCP - General Internal Medicine 03/17/15 Leticia Armendariz MD PCP - Assigned PCP 06/30/14 11/07/18 [facility] [address] [place] [address] Leticia Armendariz MD Assigned PCP 06/30/14 01/06/19 [facility] [address] [place] [address] documented as of this encounter
--- OUTSIDE RECORDS SUMMARY | 2022-06-25 13:53 | XMS_ITS | Encounter Summary ---
:1965 Author Organization [place] Address [address] [place] [address] Care Team Providers Name Role Phone Leticia Armendariz MD Primary Care Provider Leticia Armendariz MD Unavailable Leticia Armendariz MD Unavailable Reason for Visit Reason Onset Date Comments Refill Request 06/11/2016 Cyclobenzaprine Encounter Details Date Type Department Care Team Description 06/11/2016 Refill [facility] Leticia Armendariz Refill Request Demarco Bender MD (Cyclobenzaprine) [address] [phone] [id number] Social History Tobacco Use Types Packs/Day Years Used Date Smoking Tobacco: Every Day Cigarettes Smokeless Tobacco: Never Comments: 1/4 pack per day - quit date e of summer Alcohol Use Standard Drinks/Week Comments No 0 (1 standard drink = 0.6 oz pure alcoho l) 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 Date Recorded 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 encounter Miscellaneous Notes Telephone Encounter - Mary Simmons - 06/11/2016 2:01 PM CDT Cyclobenzaprine Last Written Prescription Date: 03/29/16 Last Fill Quantity: 90, # refills: 1 Last Office Visit with [facility], [facility] or [facility] prescribing provider: 03/29/16 Future Office visit: none Routing refill request to provider for review/approval because: Drug not on the [facility], [facility] or [facility] refill protocol or controlled substance documented in this encounter Plan of Treatment Not on filedocumented as of this encounter Visit Diagnoses Diagnosis Cervicalgia - Primary documented in this encounter Care Teams Engineering Design Manager Relationship Specialty Start Date End Date Leticia Armendariz MD PCP - General Internal Medicine 03/17/15 Leticia Armendariz MD PCP - Assigned PCP 06/30/14 11/07/[address] [address] Leticia Armendariz MD Assigned PCP 06/30/14 01/06/[address] [address] documented as of this encounter
--- OUTSIDE RECORDS SUMMARY | 2022-06-25 13:53 | XMS_ITS | Encounter Summary ---
:1965 Author Organization [place] Address [address] [place] [address] Care Team Providers Name Role Phone Leticia Armendariz MD Primary Care Provider Leticia Armendariz MD Unavailable Leticia Armendariz MD Unavailable Reason for Visit Reason Onset Date Comments Refill Request 03/25/2016 Zolpidem Encounter Details Date Type Department Care Team Description 03/25/2016 Refill [facility] Leticia Armendariz Refill Request (Zolpidem) Demarco Bender MD [address] [place] [address] [place] [address] [address] [phone] Social History Tobacco Use Types Packs/Day Years Used Date Smoking Tobacco: Every Day Cigarettes Smokeless Tobacco: Never Alcohol Use Standard Drinks/Week Comments No 0 (1 standard drink = 0.6 oz pure alcoho l) 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 Date Recorded 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 Miscellaneous Notes Telephone Encounter - Juliet Parsons LPN - 03/26/2016 8:09 AM CDT Faxed.JULIET PARSONS LPN Telephone Encounter - Leticia Armendariz MD - 03/26/2016 7:55 AM CDT Script ready and in my outbox thanks Telephone Encounter - Yokasta Karen - 03/25/2016 7:24 AM CDT Zolpidem Last Written Prescription Date: 09/19/15 Last Fill Quantity: 30, # refills: 5 Last Office Visit with [facility] prescribing provider: 11/04/15 Future Office visit: Next 5 appointments (look out 90 days) Mar 29, 2016 9:20 AM SHORT with Leticia Armendariz MD [facility] [phone] Routing refill request to provider for review/approval because: Drug not on the [facility], [facility] or [employer] refill protocol or controlled substance documented in this encounter Plan of Treatment Not on filedocumented as of this encounter Visit Diagnoses Diagnosis Primary insomnia - Primary Persistent disorder of initiating or adrianne ntaining sleep documented in this encounter Care Teams Warehouse Processor Relationship Specialty Start Date End Date Leticia Armendariz MD PCP - General Internal Medicine 03/17/15 Leticia Armendariz MD PCP - Assigned PCP 06/30/14 11/07/18 [facility] [address] [place] [address] Leticia Armendariz MD Assigned PCP 06/30/14 01/06/19 [facility] [address] [place] [address] documented as of this encounter
--- OUTSIDE RECORDS SUMMARY | 2022-06-25 13:53 | XMS_ITS | Encounter Summary ---
:1965 Author Organization [place] Address [address] [place] [address] Care Team Providers Name Role Phone Leticia Armendariz MD Primary Care Provider Leticia Armendariz MD Unavailable Leticia Armendariz MD Unavailable Reason for Visit Reason Comments Recheck Medication not fasting Flexirel questio ns Encounter Details Date Type Department Care Team Description 03/29/2016 Office Visit [facility] Leticia Armendariz Benign essential hypertension (Primary Dx); Clinic Demarco Bender MD Atrial fibrillation status post cardiove rsion; [address] [facility] Cervicalgia; [address] Tobacco use disorder; [place], [place] Encounter fo r routine adult health examination without abnormal findings; [id number] Need for tetanus booster [phone] Social History Tobacco Use Types Packs/Day Years Used Date Smoking Tobacco: Every Day Cigarettes Smokeless Tobacco: Never Tobacco Cessation: Ready to Quit: Yes Comments: 1/4 pack per day - quit date e of summer Alcohol Use Standard Drinks/Week Comments No 0 (1 standard drink = 0.6 oz pure alcoho l) 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 Date Recorded 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 Last Filed Vital Signs Vital Sign Reading Time Taken Comments Blood Pressure 110/68 03/29/2016 9:23 AM CDT Pulse 92 03/29/2016 9:23 AM CDT Temperature 36.6 ??C (97.8 ??F) 03/29/2016 9:23 AM CDT Respiratory Rate - - Oxygen Saturation 98% 03/29/2016 9:23 AM CDT Inhaled Oxygen Concentration - - Weight 93.6 kg (206 lb 4.8 oz) 03/29/2016 9:23 AM CDT Height 175.3 cm (5' 9) 03/29/2016 9:23 AM CDT Body Mass Index 30.47 03/29/2016 9:23 AM CDT documented in this encounter Progress Notes Leticia Armendariz MD - 03/29/2016 9:15 AM CDT SUBJECTIVE: Feng Perez is a 51 year old male who presents to clinic today for the following health issues: Hypertension Follow-up ?? Outpatient blood pressures are not being checked. ?? Low Salt Diet: no added salt ?? Amount of exercise or physical activity: None; but always active ?? Problems taking medications regularly: No ?? Medication side effects: none ?? Diet: low salt Cervicalgia. S/p cervical fusion. Patient is taking flexeril, and this is helping with his neck pain. In addition, his headaches have improved. Atrial fibrillation. Patient is s/p cardioversion. Denies any chest pain or shortness of breath or palpitations. Problem list and histories reviewed & adjusted, as indicated. ROS: C: NEGATIVE for fever, chills, change in weight R: NEGATIVE for significant cough or SOB CV: NEGATIVE for chest pain, palpitations or peripheral edema MSK: POS neck pain OBJECTIVE: BP 110/68 mmHg Pulse 92 Temp(Src) 97.8 ??F (36.6 ??C) (Oral) Ht 5' 9 (1.753 m) Wt 206 lb 4.8 oz (93.577 kg) BMI 30.45 kg/m2 SpO2 98% Body mass index is 30.45 kg/(m^2). GENERAL: healthy, alert and no distress RESP: lungs clear to auscultation - no rales, rhonchi or wheezes CV: regular rate and rhythm, normal S1 S2, no S3 or S4, no murmur, click or rub ASSESSMENT/PLAN: (I10) Benign essential hypertension (primary encounter diagnosis) Comment: at goal Plan: Basic metabolic panel, Microalbumin quantitative random urine (I48.91) Atrial fibrillation status post cardioversion Comment: Plan: losartan (COZAAR) 50 MG tablet, amLODIPine (NORVASC) 5 MG tablet (M54.2) Cervicalgia Comment: Plan: cyclobenzaprine (FLEXERIL) 10 MG tablet (Z72.0) Tobacco use disorder Comment: Plan: buPROPion (WELLBUTRIN SR) 150 MG 12 hr tablet (Z00.00) Encounter for routine adult health examination without abnormal findings Comment: Plan: Hepatitis C antibody (Z23) Need for tetanus booster Comment: Plan: TDAP (ADACEL AGES 11-64) Leticia Armendariz MD [facility] >25 minutes spent with patient, and >50% of time spent counseling documented in this encounter Nursing Notes Lori Askew - 03/29/2016 9:25 AM CDT Chief Complaint Patient presents with ??? Recheck Medication not fasting Flexirel questions Initial BP 110/68 mmHg Pulse 92 Temp(Src) 97.8 ??F (36.6 ??C) (Oral) Ht 5' 9 (1.753 m) Wt 206 lb 4.8 oz (93.577 kg) BMI 30.45 kg/m2 SpO2 98% Estimated body mass index is 30.45 kg/(m^2) as calculated from the following: Height as of this encounter: 5' 9 (1.753 m). Weight as of this encounter: 206 lb 4.8 oz (93.577 kg). BP completed using cuff size: matthew Askew MA documented in this encounter Plan of Treatment Not on filedocumented as of this encounter Procedures Procedure Name Priority Date/Time Associated Diagnosis Comme nts ALBUMIN RANDOM URINE Routine 03/29/2016 10:38 Benign essential Results for this QUANTITATIVE AM CDT hypertension procedure are i n the results section. HEPATITIS C ANTIBODY Routine 03/29/2016 10:37 Encounter for Re sults for this AM CDT routine adult health procedu re are in examination without the resu lts abnormal findings section. BASIC METABOLIC PANEL Routine 03/29/2016 10:37 Benign essentia l Results for this AM CDT hypertension procedure are i n the results section. documented in this encounter Results Microalbumin quantitative random urine (03/29/2016 10:38 AM CDT) [facility] Method Time Signature Creatinine 55 mg/dL [place] Urine [facility] Albumin Urine <5 mg/L [place] mg/L [facility] Albumin Urine Unable to 0 - 17 [place] mg/g Cr calculate due mg/g Cr [facility] to low value [facility] Specimen Anatomical Collection Method Collection Time Receive d Time (Source) Location / / Volume Laterality Urine specimen 03/29/2016 10:38 6 (specimen) AM CDT 10:43 AM CDT Leticia Armendariz MD LAB - URINE ORDERABLES Performing Organization Address City/State/ZIP Code Phon e Number [facility] [address] [place] [address] [facility] [address] [place] [address], [facility] [phone] Hepatitis C antibody (03/29/2016 10:37 AM CDT) Component Value Ref Test Analysis Performed At [facility] Method Time Signature Hepatitis C Nonreactive NR [facility] Antibody Assay performance character istics have not been established for newborns, [place] MEDICAL infants, and children [facility] Specimen Anatomical Collection Method Collection Time Receive d Time (Source) Location / / Volume Laterality Blood specimen 03/29/2016 10:37 6 (specimen) AM CDT 10:42 AM CDT Leticia Armendariz MD LAB - BLOOD ORDERABLES Performing Organization Address City/State/ZIP Code Phon e Number [facility] [address] [place] [address] [facility] Basic metabolic panel (03/29/2016 10:37 AM CDT) athologist Signature Sodium 139 133 - 144 [facility] mmol/L [facility] Potassium 4.5 3.4 - 5.3 [facility] mmol/L [facility] Chloride 106 94 - 109 [facility] mmol/L [facility] Carbon Dioxide 30 20 - 32 [facility] mmol/L [facility] Anion Gap 3 3 - 14 [place] mmol/L [facility] Glucose 93 70 - 99 [place] mg/dL [facility] Urea Nitrogen 8 7 - 30 [place] mg/dL [facility] Creatinine 0.91 0.66 - [place] 1.25 mg/dL [facility] GFR Estimate 88 >60 [place] mL/min/1.[address] [facility] Comment: Non GFR Calc GFR Estimate If >90 >60 mL/min/1.7m2 [facility] Black GFR Calc [facility] [place] 9.1 8.5 - 10.1 mg/dL [place] CLIN ICS [facility] Specimen Anatomical Collection Method Collection Time Receive d Time (Source) Location / / Volume Laterality Blood specimen 03/29/2016 10:37 6 (specimen) AM CDT 10:42 AM CDT Leticia Armendariz MD LAB - BLOOD ORDERABLES Performing Organization Address City/State/ZIP Code Phon e Number [facility] [address] [place] [address] documented in this encounter Visit Diagnoses Diagnosis Benign essential hypertension - Primary Essential hypertension, benign Atrial fibrillation status post cardiove rsion Cervicalgia Tobacco use disorder Encounter for routine adult health exami nation without abnormal findings Need for tetanus booster Need for prophylactic vaccination with t etanus toxoid alone documented in this encounter Care Teams Section Hand Relationship Specialty Start Date End Date Leticia Armendariz MD PCP - General Internal Medicine 03/17/15 Leticia Armendariz MD PCP - Assigned PCP 06/30/14 11/07/18 [facility] [address] [place] [address] Leticia Armendariz MD Assigned PCP 06/30/14 01/06/19 [facility] [address] [place] [address] documented as of this encounter
--- OUTSIDE RECORDS SUMMARY | 2022-06-25 13:53 | XMS_ITS | Encounter Summary ---
:1965 Author Organization [place] Address [address] [place] [address] Care Team Providers Name Role Phone Leticia Armendariz MD Primary Care Provider Leticia Armendariz MD Unavailable Leticia Armendariz MD Unavailable Reason for Visit Reason Onset Date Comments Refill Request 01/06/2016 Cyclobenzaprine Encounter Details Date Type Department Care Team Description 01/06/2016 Refill [facility] Leticia Armendariz Refill Request Demarco Bender MD (Cyclobenzaprine) 303 [facility] [address] [phone] Social History Tobacco Use Types Packs/Day Years Used Date Smoking Tobacco: Every Day Cigarettes Smokeless Tobacco: Never Alcohol Use Standard Drinks/Week Comments No 0 (1 standard drink = 0.6 oz pure alcoho l) 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 Date 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 Miscellaneous Notes Telephone Encounter - Karen Templeton - 01/06/2016 6:38 AM CDT Cyclobenzaprine Last Written Prescription Date: 11/04/15 Last Fill Quantity: 30, # refills: 1 Last Office Visit with [facility] or [facility] prescribing provider: 11/04/15 Future Office visit: Routing refill request to provider for review/approval because: Drug not on the [facility], [facility] or [facility] refill protocol or controlled substance documented in this encounter Plan of Treatment Not on filedocumented as of this encounter Visit Diagnoses Diagnosis Cervicalgia - Primary documented in this encounter Care Teams Compass Operator Relationship Specialty Start Date End Date Leticia Armendariz MD PCP - General Internal Medicine 03/17/15 Leticia Armendariz MD PCP - Assigned PCP 06/30/14 [facility]07[facility] [address] [address] Leticia Armendariz MD Assigned PCP 06/30/14 [facility] [address] [address] documented as of this encounter
--- OUTSIDE RECORDS SUMMARY | 2022-06-25 13:53 | XMS_ITS | Encounter Summary ---
:1965 Author Organization [place] Address [address] [place] [address] Care Team Providers Name Role Phone Leticia Armendariz MD Primary Care Provider Leticia Armendariz MD Unavailable Leticia Armendariz MD Unavailable Reason for Visit Reason Comments Neurologic Problem Follow up neck pain, recentl y getting headaches, left arm and hand weakness and Numbness on the left hand pinky and thumb. Encounter Details Date Type Department Care Team Description 05/19/2016 Office Visit [facility] Jasmin Yu Status p ost cervical [facility] Ian, BRUCE CN P spinal fusion (Primary Clinic [facility] ORTHOPEDICS Dx) [address] [place] [address] [place] [address] [phone] Social History Tobacco Use Types Packs/Day Years Used Date Smoking Tobacco: Every Day Cigarettes Smokeless Tobacco: Never Comments: 1/4 pack per day - quit date e of summer Alcohol Use Standard Drinks/Week Comments No 0 (1 standard drink = 0.6 oz pure alcoho l) 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 Date Recorded 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 Please call [facility] to have cervical MRI completed. Call [phone]. I will contact you with results. documented in this encounter Progress Notes Jasmin Yu APRN CNP - 05/19/2016 10:19 AM CDT [facility] Neurosurgery followup: HPI: Mr. Perez returns today 2 years post C5-[address] Umang Sandoval. He reports that postfusion his radicular pain was better but he continued to have neck pain. He states that he was then being managed by his PCP for the pain. He tried muscle relaxants without relief. He states that in the past 8 months it has been more neck pain however, more recently he has noted more left arm pain in the last month. He notes pain into the elbow with his pinky and thumb numbness. He has not had any recent injections or PT. Exam: Constitutional: Alert, well nourished, NAD. HEENT: Normocephalic, atraumatic. Pulm: Without shortness of breath CV: No pitting edema of BLE. Neurological: Awake Alert Oriented x 3 Motor exam: Shoulder Abduction: Right: 5/5 Left: 5/5 Biceps: Right: 5/5 Left: 4/5 Triceps: Right: 5/5 Left: 4/5 Wrist Extensors: Right: 5/5 Left: 5/5 Wrist Flexors: Right: 5/5 Left: 5/5 Intrinsics: Right: 5/5 Left: 5/5 Able to spontaneously move U/E bilaterally Sensation intact throughout all U/E dermatomes A/P: Mr. Perez returns today 2 years post C5-[address] Umang Sandoval. He reports that postfusion his radicular pain was better but he continued to have neck pain. He states that he was then being managed by his PCP for the pain. He tried muscle relaxants without relief. He states that in the past 8 months it has been more neck pain however, more recently he has noted more left arm pain in the last month. He notes pain into the elbow with his pinky and thumb numbness. He has not had any recent injections or PT. He does not have any updated scans at this time. We will have him undergo a cervical MRI. He does have some left bicep and tricep weakness as well. He denies any balance issues. 1. Please call [facility] to have cervical MRI completed. Call [phone]. I will contact you with results. Jasmin Yu CNP [facility] [address] [address] Pager [phone] documented in this encounter Nursing Notes Susan Isaac - 05/19/2016 10:15 AM CDT Feng Perez is a 51 year old male who presents for: Chief Complaint Patient presents with ??? Neurologic Problem Follow up neck pain, recently getting headaches, left arm and hand weakness and Numbness on the left hand pinky and thumb. Initial Vitals: BP 132/89 mmHg Pulse 102 Temp(Src) 97.8 ??F (36.6 ??C) (Oral) Wt 206 lb (93.441 kg) SpO2 96% Estimated body mass index is 30.41 kg/(m^2) as calculated from the following: Height as of 03/29/16: 5' 9 (1.753 m). Weight as of this encounter: 206 lb (93.441 kg).. There is no height on file to calculate BSA. BP completed using cuff size: Large Severe Pain (6) Do you feel safe in your environment? Yes Do you need any refills today? No Nursing Comments: Follow up neck pain, recently getting headaches, left arm and hand weakness and Numbness on the left hand pinky and thumb. Patient rates his pain today as 6 5 min. nursing intake time Susan Isaac MA Discharge plan: 1. Please call [facility] to have cervical MRI completed. Call [phone]. I will contact you with results. 2 min. nursing discharge time Susan Isaac MA documented in this encounter Plan of [...] the original. MR CERVICAL SPINE WITHOUT CONTRAST Marcello abrazo [facility] 2015 8:39 AM HISTORY: Arthrodesis status. TECHNIQUE: [...] and unchanged. ARYAN HONG MD Jasmin Yu CAR SWEEPER MARINE MAMMAL TRAINER IMG MRI ORDERABLES documented in this encounter Visit Diagnoses Diagnosis Status post cervical spinal fusion - [facility] Arthrodesis status Status post cervical spinal fusion Arthrodesis status documented in this encounter Care Teams Flame Planer Relationship Specialty Start Date End Date Leticia Armendariz MD PCP - General Internal Medicine 03/17/15 Leticia Armendariz MD PCP - Assigned PCP 06/30/14 11/07/[address] [address] Leticia Armendariz MD Assigned PCP 06/30/14 01/06/[address] [address] documented as of this encounter
--- OUTSIDE RECORDS SUMMARY | 2022-06-25 13:53 | XMS_ITS | Encounter Summary ---
:1965 Author Organization [facility] Address [address] [place] [address] Care Team Providers Name Role Phone Leticia Armendariz MD Primary Care Provider Leticia Armendariz MD Unavailable Leticia Armendariz MD Unavailable Reason for Visit Reason Comments Pain KATARINA Encounter Details Date Type Department Care Team Description 06/15/2016 Radiology [facility] Ro Soto Cervical r adiculopathy (Primary Dx); Injection Office Pain Management DO Laura Cervical spondylosis without myelopathy Visit [address] [place] [address] [place], [place] [phone] (Work) [phone] Social History Tobacco Use Types Packs/Day Years Used Date Smoking Tobacco: Every Day Cigarettes Smokeless Tobacco: Never Comments: 1/4 pack per day - quit date e of summer Alcohol Use Standard Drinks/Week Comments No 0 (1 standard drink = 0.6 oz pure alcoho l) 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 Date Recorded 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 Ro Soto Your procedure: Epidural steroid injection Medications used: Lidocaine (anesthetic) Kenalog (steroid) Omnipaque (contrast) , Normal Saline, Fentanyl and Versed (sedation) ??? If you have received sedation before, during, or after your procedure, for the next 24 hours youshall NOT: -Drive -Operate machinery -Drink alcohol -Sign any legal documents ??? Be cautious when walking as numbness and/or weakness in the legs may occur up to 6-8 hours afterthe procedure due to effect of the local anesthetic ??? Do not drive for 6 hours. The effect of the local anesthetic could slow your reflexes. ??? Avoid strenuous activity for the first 24 hours. You may resume your regular activities after that. ??? You may shower, however avoid swimming, tub baths or hot tubs for 24 hours following your procedure ??? If you were fasting, you can resume your regular diet and medications ??? You may have a mild to moderate increase in pain for several days following the injection. ??? You may use ice packs for 10-15 minutes, 3 to 4 times a day at the injection site for comfort ??? You may use anti-inflammatory medications (such as Ibuprofen/Advil or Aleve) or Tylenol for paincontrol if necessary ??? If you have diabetes, check your blood sugar more frequently than usual as your blood sugar may be higher than normal for 10-14 days following a steroid injection. Contact your doctor who manages your diabetes if your blood sugar is higher than usual ??? It may take up to 14 days for the steroid medication to start working although you may feel the effect as early as a few days after the procedure. ??? If you experience any of the following, call the pain center nursing line during work hours at [phone] or on-call physician after hours at [phone]: -Fever over 100 degree F -Swelling, bleeding, redness, drainage, warmth at the injection site -Progressive weakness or numbness in your legs or arms -Loss of bowel or bladder function -Unusual headache that is not relieved by Tylenol -Unusual new onset of pain that is not improving Phone #s: Appointment scheduling line: [phone] documented in this encounter Progress Notes Ro Soto DO - 06/15/2016 9:09 AM CDT [facility] - Procedure Note Date of Visit: 06/15/2016 Procedure performed: C7-T1 interlaminar epidural steroid injection with fluoroscopic guidance Diagnosis: Cervical spondylosis; Cervical radiculitis/radiculopathy [place]nake Farmer: Ro Soto DO and Tayo Swartz MD Anesthesia: IV moderate sedation with versed 0.25 mg and fentanyl 50 mcg Indications: Feng Perez is a 51 year old male who is seen at the request of Jasmin Yu APRN CNP for cervical epidural steroid injection. The patient describes neck pain with associated tingling his left fingers. The patient has been exhibiting symptoms consistent with cervical intraspinal inflammation and radiculopathy. Symptoms have been persistent, disabling, and intermittently severe. The patient reports minimal improvement with conservative treatment. He has had a cervical fusion at C5-C6. . Cervical MRI was done on 05/21/16 which showed FINDINGS: The patient has undergone [...] ?? Paraspinal soft tissues: Normal as visualized. ? IMPRESSION: 1. Prior C5-C6 anterior discectomy and fusion. Alignment is normal and there is no stenosis. 2. C3-C4 degenerative disc disease with mild central and mild bilateral neural foraminal stenosis. This is stable and unchanged. 3. Small central disc protrusion at C4-C5 without stenosis. This is also stable and unchanged. Allergies: No Known Allergies Vitals: BP 122/80 mmHg Pulse 94 SpO2 98% Review of Systems: The patient denies recent [...] the posterior epidural space. 2 ml of 40mg/ml of triamcinolone and 1 ml of preservative free saline was injected. The needle was removed. Images were saved to PACS. The patient tolerated the procedure well, and there was no evidence of procedural complications. No new sensory or motor deficits were noted following the procedure. The patient was stable and able to ambulate on discharge home. Post-procedure instructions were provided. Pre-procedure pain score: 4/10 in the neck, 3/10 in the arm Post-procedure pain score: 2/10 in the neck, 2/10 in the arm Assessment/Plan: Feng Perez is a 51 year old male s/p cervical interlaminar epidural steroid injection today for cervical spondylosis and radiculitis/radiculopathy. 1. Following today's procedure, the patient was advised to contact the [facility] for any of the following: Fever, chills, or night sweats New onset of pain, numbness, or weakness Any questions/concerns regarding the procedure If unable to contact the Pain Center, the patient was instructed to go to a local Emergency Room forany complications. 2. The patient will receive a follow-up call in 1 week. 3. Follow-up with Jasmin Yu APRN CNP in 2 weeks for post-procedure evaluation. Ro Soto DO [facility] documented in this encounter Nursing Notes Mary Franklin RN - 06/15/2016 9:35 AM CDT Discharge Information IV Discontiued Time: NA [...] patient home? Yes Signature/Title: Mary Franklin RN Curriculum And Instruction Director [facility] Mary Franklin RN - 06/15/2016 9:21 AM CDT MD Time IN: 912 Sedation start time: 914 MD Time OUT: 922 Medications given: fentanyl 50 mcg IV; versed 0.25 mg IV Intravenous fluids were administered, 100 normal saline cc's. Sedation Level Achieved: Minimal sedation piv 24g to right hand Mary Franklin BSN-RN Curriculum And Instruction Director [facility] Karen Merino - 06/15/2016 8:35 AM CDT Images from the original note were not included. Injection intake: If this procedure is requiring [...] active infection? 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 Not Applicable Are the vital signs normal? Yes Karen Merino [facility] documented in this encounter Plan of Treatment Not on filedocumented as of this encounter Visit Diagnoses Diagnosis Cervical radiculopathy - Primary Brachial neuritis or radiculitis nos Cervical spondylosis without myelopathy documented in this encounter Care Teams Business Objects Analyst Relationship Specialty Start Date End Date Leticia Armendariz MD PCP - General Internal Medicine 03/17/15 Leticia Armendariz MD PCP - Assigned PCP 06/30/14 11/07/18 [place] [phone] Leticia Armendariz MD Assigned PCP 06/30/14 01/06/19 [facility] [address] [place] [address] documented as of this encounter
--- OUTSIDE RECORDS SUMMARY | 2022-06-25 13:53 | XMS_ITS | Encounter Summary ---
:1965 Author Organization [facility] Address [address] [place] [address] Care Team Providers Name Role Phone Leticia Armendariz MD Primary Care Provider Leticia Armendariz MD Unavailable Leticia Armendariz MD Unavailable Reason for Referral Diagnostic Procedure Outpatient - Closed Specialty Diagnoses / Procedures Referred By Contact Refer red To Contact Diagnoses Epigastric pain Leticia Armendariz MD [facility] [address] [place] [address] [place], [place] [phone] [place] [phone] Phone: Fax: Referral ID Status Reason Start Date Expiration Date Visits Requ ested Visits Authorized [id number] Closed 11/04/2015 11/03/2016 1 1 NT MIXER Reason for Visit Reason Comments RECHECK follow up ED Encounter Details Date Type Department Care Team Description 11/04/2015 Office Visit [facility] Leticia Armendariz Epigast patti pain (Primary Dx); Clinic Demarco Bender MD Cervicalgia [facility] [address] [place] [phone] [facility] [phone] Social History Tobacco Use Types Packs/Day Years Used Date Smoking Tobacco: Every Day Cigarettes Smokeless Tobacco: Never Tobacco Cessation: Ready to Quit: No Alcohol Use Standard Drinks/Week Comments No 0 (1 standard drink = 0.6 oz pure alcoho l) 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 Date Recorded 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 Last Filed Vital Signs Vital Sign Reading Time Taken Comments Blood Pressure 120/78 11/04/2015 8:09 AM CEMENT MIXER Pulse 89 11/04/2015 8:09 AM CEMENT MIXER Temperature 36.8 ??C (98.3 ??F) 11/04/2015 8:09 AM CEMENT MIXER Respiratory Rate - - Oxygen Saturation 98% 11/04/2015 8:09 AM CEMENT MIXER Inhaled Oxygen Concentration - - Weight 93.3 kg (205 lb 9.6 oz) 11/04/2015 8:09 AM CEMENT MIXER Height 176.5 cm (5' 9.5) 11/04/2015 8:09 AM CEMENT MIXER Body Mass Index 29.93 11/04/2015 8:09 AM CEMENT MIXER documented in this encounter Progress Notes Leticia Armendariz MD - 11/04/2015 8:11 AM CST SUBJECTIVE: Feng Perez is a 50 year old male who presents to clinic today for the following health issues: ED/UC Followup: Facility: ED Date of visit: 10/26/15 Reason for visit: Chest Pain Current Status: still having minimal right side pressure Chest pain. He is feeling better. Tuesday night at 2:30 in the morning, he awoke up from his sleep with chest tightness. The pain wasa stabbing pain. The patient had peptobismol and took 30 minutes until he felt better. He then kept having symptoms during the day. The patient reports that every day he feels the chest pain. Lab work was normal. CT scan of the chest revealed no pulmonary embolism. Stress test was within normal limits. He has been taking zantac, and has been feeling better. He is nauseous for 30 minutes after eating. The patient reports that sometimes the pain is worse. He drinks a lot of coffee 6-8 ounces per day. Muscle spasm. The patient has had neck pain and reports that he feels as if it is muscle spasm. He did have a cervical spinal fusion approx one year ago. He has not seen the spinal surgeon recently. Problem list and histories reviewed & adjusted, as indicated. ROS: C: NEGATIVE for fever, chills, change in weight R: NEGATIVE for significant cough or SOB CV: NEGATIVE for chest pain, palpitations or peripheral edema MSK: neck spasm OBJECTIVE: BP 120/78 mmHg Pulse 89 Temp(Src) 98.3 ??F (36.8 ??C) (Oral) Ht 5' 9.5 (1.765 m) Wt 205 lb 9.6 oz (93.26 kg) BMI 29.94 kg/m2 SpO2 98% Body mass index is 29.94 kg/(m^2). GENERAL: healthy, alert and no distress RESP: lungs clear to auscultation - no rales, rhonchi or wheezes CV: regular rate and rhythm, normal S1 S2, no S3 or S4, no murmur, click or rub GI: no RUQ or epigastric tenderness ASSESSMENT/PLAN: (R10.13) Epigastric pain (primary encounter diagnosis) Comment: Plan: GASTROENTEROLOGY ADULT REFERRAL +/- PROCEDURE (M54.2) Cervicalgia Comment: Plan: cyclobenzaprine (FLEXERIL) 10 MG tablet Leticia Armendariz MD [facility] >25 minutes spent with patient, and >50% of time spent counseling NT MIXER documented in this encounter Nursing Notes Lori Askew - 11/04/2015 8:11 AM CST Chief Complaint Patient presents with ??? RECHECK follow up ED Initial BP 120/78 mmHg Pulse 89 Temp(Src) 98.3 ??F (36.8 ??C) (Oral) Ht 5' 9.5 (1.765 m) Wt205 lb 9.6 oz (93.26 kg) BMI 29.94 kg/m2 SpO2 98% Estimated body mass index is 29.94 kg/(m^2) ascalculated from the following: Height as of this encounter: 5' 9.5 (1.765 m). Weight as of this encounter: 205 lb 9.6 oz (93.26 kg). BP completed using cuff size: matthew Askew MA NT MIXER documented in this encounter Plan of Treatment Scheduled Referrals Name Type Priority Associated Diagnoses Order S chedu GASTROENTEROLOGY ADULT Referral Routine Epigastric pain Or dered: 11/04/2015 REFERRAL +/- PROCEDURE documented as of this encounter Visit Diagnoses Diagnosis Epigastric pain - Primary Abdominal pain, epigastric Cervicalgia documented in this encounter Care Teams Business Office Manager Relationship Specialty Start Date End Date Leticia Armendariz MD PCP - General Internal Medicine 03/17/15 Leticia Armendariz MD PCP - Assigned PCP 06/30/14 11/07/[address] [address] Leticia Armendariz MD Assigned PCP 06/30/14 01/06/[address] [address] documented as of this encounter
--- OUTSIDE RECORDS SUMMARY | 2022-06-25 13:53 | XMS_ITS | Encounter Summary ---
:1965 Author Organization [facility] Address [address] [place] [address] Care Team Providers Name Role Phone Leticia Armendariz MD Primary Care Provider Leticia Armendariz MD Unavailable Leticia Armendariz MD Unavailable Encounter Details Date Type Department Care Team Description 06/15/2016 Radiant Appointment [facility] Ro Soto radicular Clinic [facility] pain Pain Management [address] [place] [address] [place], [place] [phone] (Work) [phone] Social History Tobacco Use Types Packs/Day Years Used Date Smoking Tobacco: Every Day Cigarettes Smokeless Tobacco: Never Comments: 1/4 pack per day - quit date e of summer Alcohol Use Standard Drinks/Week Comments No 0 (1 standard drink = 0.6 oz pure alcoho l) 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 Date Recorded 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 documented in this encounter Results XR Cervical/Thoracic Epidural Inj (06/15/2016 9:22 AM CDT) Specimen (Source) Anatomical Location Collection Method / Collectio n Time Received Time / Laterality Volume Narrative Mirian Peterson M - 06/15/2016 9:26 A M CDT This exam was marked as non-reportable because it will not be read by a radiologist or a [facility] non-radiologis t provider. Ro Soto DO IMG DIAGNOSTIC IMAGING ORDER WHITNEY documented in this encounter Visit Diagnoses Diagnosis Cervical radicular pain Brachial neuritis or radiculitis nos documented in this encounter Administered Medications Inactive Administered Medications - up to 3 most recent administrations Medication Order MAR Action Action Date Dose Rate Site iohexol (OMNIPAQUE) 300 mg/mL Given by Other 06/15/2016 9:25 AM CDT 1 mL injection 10 mL 10 mL, EPIDURAL, ONCE, On Tue06/15/16 at 0845, For 1 dose documented in this encounter Care Teams Attendance Clerk Relationship Specialty Start Date End Date Leticia Armendariz MD PCP - General Internal Medicine 03/17/15 Leticia Armendariz MD PCP - Assigned PCP 06/30/14 11/07/18 [facility] [address] [place] [address] Leticia Armendariz MD Assigned PCP 06/30/14 01/06/19 [facility] [address] [place] [address] documented as of this encounter
--- OUTSIDE RECORDS SUMMARY | 2022-06-25 13:53 | XMS_ITS | Encounter Summary ---
:1965 Author Organization [facility] Address [address] [place] [address] Care Team Providers Name Role Phone Leticia Armendariz MD Primary Care Provider Leticia Armendariz MD Unavailable Leticia Armendariz MD Unavailable Reason for Visit Reason Onset Date Comments Procedure 05/24/2016 KATARINA Encounter Details Date Type Department Care Team Description 05/24/[address] [facility] Pain Pain Management Pr ocedure (KATARINA) Management 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 [facility] Procedure ordered by Dr. Jasmin Yu Procedure ordered? Cervical Epidural Steroid Injection What insurance would patient like us to bill for this procedure? [employer] ?? Worker's comp-Any injection DO NOT SCHEDULE and route to Arielle Sutton ?? [employer] insurance - If scheduling an SI joint injection DO NOT SCHEDULE and route Arielle Lora. ?? [employer]- MBB's must be scheduled at LEAST two weeks apart ?? [employer] - Any injection besides hip/shoulder/knee joint DO NOT SCHEDULE and route to Arielle Lora. She will obtain PA and call pt back to schedule procedure or notify pt of denial. Is an oncology consultant needed? No Patient has a drive home? (mandatory) YES: Is patient taking any blood thinners (plavix, [...] antibiotics for active or recent infection: Charles Simpson [place]-antibiotic course must have been completed for [address] Tran-antibiotic course must have been completed for 7 days Is patient currently taking any steroid medications? No For patients on steroid medications: Charles Simpson [place]-steroid course must have been completed for [address] Tran-steroid course must have been completed for 7 days Is patient actively being treated for cancer [...] indicates no known allergies. Any chance of ?Not Applicable Has the patient had a flu shot or any other vaccinations within 7 days before or after the procedure. No Does patient have an MRI/CT? YES: MRI (SI joint, hip injections, lumbar sympathetic blocks, and stellate ganglion blocks do not require anMRI) ?? If so, was it done at [facility]? Yes ?? If not, where was it done? N/A Was the MRI done w/in the last 3 years? Yes If MRI was not done at [facility], [facility] do NOT schedule. Route to nursing. (If pt has disc the injection can be scheduled but pt has to bring disc to appt. If they show up w/out disc the injection cannot be done) Reminders (please tell patient if applicable): ?? Instructed pt to arrive 30 minutes early for IV start if this is for a cervical procedure, ALL sympathetic (stellate ganglion, hypogastric, or lumbar sympathetic block) and all sedation procedures (RFA, spinal cord stimulation trials). Not Applicable -IVs are not routinely placed for Soto and [place] cervical case ?? If NPO for sedation, informed patient that it is okay to take medications with sips of water (except if they are to hold blood thinners). Not Applicable *DO take blood pressure medication if it is prescribed* ?? If this is for a cervical LUZ, informed patient that aspirin needs to be held for 6 days. YES: Informed ?? Do not schedule procedures requiring IV placement in the first appointment of the day or first appointment after lunch ?? For patients 85 or older we recommend having an adult stay w/ them for the remainder of the day. Does the patient have any questions? NO Yeni Lock [facility] documented in this encounter Plan of Treatment Not on filedocumented as of this encounter Visit Diagnoses Not on filedocumented in this encounter Care Teams Foot Setter Relationship Specialty Start Date End Date Leticia Armendariz MD PCP - General Internal Medicine 03/17/15 Leticia Armendariz MD PCP - Assigned PCP 06/30/14 11/07/[address] [address] Leticia Armendariz MD Assigned PCP 06/30/14 01/06/[address] [address] documented as of this encounter
--- OUTSIDE RECORDS SUMMARY | 2022-06-25 13:53 | XMS_ITS | Encounter Summary ---
:1965 Author Organization [facility] Address [address] [place] [address] Care Team Providers Name Role Phone Leticia Armendariz MD Primary Care Provider Leticia Armendariz MD Unavailable Leticia Armendariz MD Unavailable Encounter Details Date Type Department Care Team Description 06/01/2016 Radiant Appointment [facility] [address] [place] [address] Social History Tobacco Use Types Packs/Day Years Used Date Smoking Tobacco: Every Day Cigarettes Smokeless Tobacco: Never Comments: 1/4 pack per day - quit date e of summer Alcohol Use Standard Drinks/Week Comments No 0 (1 standard drink = 0.6 oz pure alcoho l) 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 Date Recorded 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 documented in this encounter Results XR Cervical/Thoracic Epidural Inj (06/01/2016 3:19 PM CDT) Specimen (Source) Anatomical Location Collection Method / Collectio n Time Received Time / Laterality Volume Narrative Jono Arvizu - 06/01/2016 3:24 PM CDT This exam was marked as non-reportable because it will not be read by a radiologist or a [facility] non-radiologis t provider. Julia Harmon MD IMG DIAGNOSTIC IMAGING ORDER WHITNEY documented in this encounter Visit Diagnoses Diagnosis Cervical radicular pain Brachial neuritis or radiculitis nos documented in this encounter Administered Medications Inactive Administered Medications - up to 3 most recent administrations Medication Order MAR Action Action Date Dose Rate Site iohexol (OMNIPAQUE) 300 Given by Other 06/01/2016 3:23 PM CDT 0.75 mL s mg/mL injection 10 mL 10 mL, EPIDURAL, ONCE, On Tue06/01/16 at 1430, For 1 dose documented in this encounter Care Teams Verifying Specialist Relationship Specialty Start Date End Date Leticia Armendariz MD PCP - General Internal Medicine 03/17/15 Leticia Armendariz MD PCP - Assigned PCP 06/30/14 11/07/18 [facility] [address] [place] [phone] Leticia Armendariz MD Assigned PCP 06/30/14 01/06/19 [facility] [address] [place] [phone] documented as of this encounter
--- OUTSIDE RECORDS SUMMARY | 2022-06-25 13:53 | XMS_ITS | Encounter Summary ---
:1965 Author Organization [place] Address [address] [place] [place] [address] Care Team Providers Name Role Phone Leticia Armendariz MD Primary Care Provider Nahum Lemus MD Unavailable Karuna Ramirez MD Unavailable [phone] Leticia Armendariz MD Unavailable Leticia Armendariz MD Unavailable Reason for Visit Reason Onset Date Comments Patient/info Update 06/22/2016 Post KATARINA Encounter Details Date Type Department Care Team Description 06/22/2016 Telephone [facility] Pain Ro [place], Patient/info Update Management Center DO (Post KATARINA) [address] [facility] PAIN [place] [address] [place], [place] [address] [address] [place] [address] [phone] Social History Tobacco Use Types Packs/Day Years Used Date Smoking Tobacco: Every Day Cigarettes Smokeless Tobacco: Never Comments: 1/4 pack per day - quit date e of summer Alcohol Use Standard Drinks/Week Comments No 0 (1 standard drink = 0.6 oz pure alcoho l) 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 Date Recorded 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 Called patient for an update. Left message that we were calling for an update about how s/he was doing after the injection. LM that if s/he has any problems or questions to call the nurse line at [phone]. Mirian Carson(R) documented in this encounter Plan of Treatment Not on filedocumented as of this encounter Visit Diagnoses Not on filedocumented in this encounter Care Teams Pantograph Machine Set Up Operator Relationship Specialty Start Date End Date Leticia Armendariz MD PCP - General Internal Medicine 03/17/15 Leticia Armendariz MD PCP - Assigned PCP 06/30/14 11/07/[address] [id number] Nahum Lemus MD 09/16/16 [facility] [address] [place] [id number] Karuna Ramirez MD MD Cardiology 09/16/16 Leticia Armendariz MD Assigned PCP 06/30/14 [facility] [address] [address] documented as of this encounter
--- OUTSIDE RECORDS SUMMARY | 2022-06-25 13:54 | XMS_ITS | Encounter Summary ---
:1965 Author Organization [place] Address [address] [place] [address] Care Team Providers Name Role Phone Maged Aggarwal MD Primary Care Provider Leticia Armendariz MD Unavailable Leticia Armendariz MD Unavailable Reason for Visit Reason Onset Date Comments Refill Request 07/24/2014 Amlodipine,Losartan Encounter Details Date Type Department Care Team Description 07/24/2014 Refill [facility] Heart Diamandopoulos, L aura Refill Request Clinic Tiana Krishna MD (Amlodipine,Losartan) 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
--- OUTSIDE RECORDS SUMMARY | 2022-06-25 13:54 | XMS_ITS | Encounter Summary ---
:1965 Author Organization [place] Address [address] [place] [address] Care Team Providers Name Role Phone Leticia Armendariz MD Primary Care Provider Leticia Armendariz MD Unavailable Leticia Armendariz MD Unavailable Encounter Details Date Type Department Care Team Description 05/13/2015 Orders Only [facility] Dexter Elias S/[facility] DICK Pope fusion (Primary Dx) [address] [facility] [id number] [place] [phone] Social History Tobacco Use Types Packs/Day Years Used Date Smoking Tobacco: Every Day Cigarettes Smokeless Tobacco: Never Alcohol Use Standard Drinks/Week Comments No 0 (1 standard drink = 0.6 oz pure alcoho l) 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 Date Recorded 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 The hardware is intact with no ad jacent lucency seen to suggest loosening. There is lucency seen across the disc space with no evidence of solid bone bridging yet occu rring. There is mild to moderate disc height loss at C3-C4 with marginal osteophyte formation. There is mild degenerative disc disease at C6-C7. No other abnormality is demonstrated. SARAH HERNANDEZ MD Narrative 05/14/2015 11:43 AM CDT CERVICAL SPINE ONE VIEW 05/14/2015, 9:50 AM HISTORY: Arthrodesis status. COMPARISON: An MRI on 08/13/2014 and intr aoperative images on 04/15/2014. Procedure Note Sarah Hernandez MD - 05/14/2015Fo rmatting of this note might be different from the original. CERVICAL SPINE ONE VIEW 05/14/2015, 9:50 A M HISTORY: Arthrodesis status. COMPARISON: An MRI on 08/13/2014 and intr aoperative images on 04/15/2014. IMPRESSION IMPRESSION: There are surgical changes o f anterior interbody fusion at C5-C6. The hardware is intact with no ad jacent lucency seen to suggest loosening. There is lucency seen across the disc space with no evidence of solid bone bridging yet occu rring. There is mild to moderate disc height loss at C3-C4 with marginal osteophyte formation. There is mild degenerative disc disease at C6-C7. No other abnormality is demonstrated. SARAH HERNANDEZ MD Dexter Elias NP IMG DIAGNOSTIC IMAGING ORDER WHITNEY documented in this encounter Visit Diagnoses Diagnosis S/P cervical spinal fusion - Primary Arthrodesis status S/P cervical spinal fusion Arthrodesis status documented in this encounter Care Teams Pinked Edge Sewing Machine Operator Relationship Specialty Start Date End Date Leticia Armenadriz MD PCP - General Internal Medicine 03/17/15 Leticia Armendariz MD PCP - Assigned PCP 06/30/14 11/07/[address] [address] Leticia Armendariz MD Assigned PCP 06/30/14 01/06/19 [facility] [address] [place] [address] (work) documented as of this encounter
--- OUTSIDE RECORDS SUMMARY | 2022-06-25 13:54 | XMS_ITS | Encounter Summary ---
:1965 Author Organization [place] Address [address] [place] [address] Care Team Providers Name Role Phone Leticia Armendariz MD Primary Care Provider Leticia Armendariz MD Unavailable Leticia Armendariz MD Unavailable Reason for Visit Reason Onset Date Comments Refill Request 09/19/2015 Zolpidem Encounter Details Date Type Department Care Team Description 09/19/2015 Refill [facility] Leticia Armendariz Refill Request (Zolpidem) Demarco Bender MD [address] [place] [address] [address] [phone] Social History Tobacco Use Types Packs/Day Years Used Date Smoking Tobacco: Every Day Cigarettes Smokeless Tobacco: Never Alcohol Use Standard Drinks/Week Comments No 0 (1 standard drink = 0.6 oz pure alcoho l) 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 Date Recorded 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 Miscellaneous Notes Telephone Encounter - Lori Askew - 09/19/2015 4:16 PM CST Rx faxed [employer] Telephone Encounter - Leticia Armendariz MD - 09/19/2015 1:44 PM CST Script ready and in my outbox thanks [employer] Telephone Encounter - Mary Simmons - 09/19/2015 1:09 PM CST Zolpidem Last Written Prescription Date: 03/17/15 Last Fill Quantity: 30, # refills: 5 Last Office Visit with [facility] primary care provider: 06/17/15 Future Office visit: none Routing refill request to provider for review/approval because: Drug not on the [facility] refill protocol or controlled substance [employer] documented in this encounter Plan of Treatment Not on filedocumented as of this encounter Visit Diagnoses Diagnosis Primary insomnia - Primary Persistent disorder of initiating or adrianne ntaining sleep documented in this encounter Care Teams Assayer Relationship Specialty Start Date End Date Leticia Armendariz MD PCP - General Internal Medicine 03/17/15 Leticia Armendariz MD PCP - Assigned PCP 06/30/14 11/07/18 [facility] [address] [address] Leticia Armendariz MD Assigned PCP 06/30/14 01/06/19 [facility] [address] [address] documented as of this encounter
--- OUTSIDE RECORDS SUMMARY | 2022-06-25 13:54 | XMS_ITS | Encounter Summary ---
:1965 Author Organization [place] Address [address] [place] [address] Care Team Providers Name Role Phone Leticia Armendariz MD Primary Care Provider Leticia Armendariz MD Unavailable Leticia Armendariz MD Unavailable Reason for Visit (Routine) - Closed Specialty Diagnoses / Procedures Referred By Contact Refer red To Contact Cardiology Diagnoses 10/27-prep/directions given for LISETH, no BB, ER outpt Zz [facility] Echocardiography Procedures ECH STRESS TEST [address] [place], [place] [address] Phone: Referral ID Status Reason Start Date Expiration Date Visits Requ ested Visits Authorized [id number] Closed 10/27/2015 10/26/2016 1 1 Encounter Details Date Type Department Care Team Description 11/03/2015 Hospital Encounter [facility] Kalyn Burns est pain, Cardiopulmonary MD [place] unspecified chest [address] [facility] EMERGENCY pain type [place], [place] [address] [phone] [place], [place] [id number] Social History Tobacco Use Types Packs/Day Years Used Date Smoking Tobacco: Every Day Cigarettes Smokeless Tobacco: Never Alcohol Use Standard Drinks/Week Comments No 0 (1 standard drink = 0.6 oz pure alcoho l) 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 Date Recorded 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 documented as of this encounter Medications at Time of Discharge Medication Sig Dispensed Refills Start Date End Date amLODIPine (NORVASC) 5 MG Take 1 tablet (5 90 tablet 1 12/201503/29/2016 tabletIndications: Atrial mg) by mouth daily fibrillation status post cardioversion (H) losartan (COZAAR) 50 MG Take 1 tablet (50 90 tablet 1 11/0603/29/2016 tabletIndications: Atrial mg) by mouth daily fibrillation status post cardioversion (H) ffchgzyu-tzihtfpzv-tcmrjoz 0 5 08/02/2016 rtisone (CORTISPORIN) 3.5-95624-7 otic suspension zolpidem (AMBIEN) 5 MG Take 1 tablet (5 30 tablet 5 016 03/25/2016 tabletIndications: Primary mg) by mouth insomnia nightly as needed for sleep documented as of this encounter Plan of Treatment Not on filedocumented as of this encounter Procedures Procedure Name Priority Date/Time Associated Diagnosis Comme nts ECHO STRESS TEST PAT 11/03/2015 2:05 PM Chest pain, Resul ts for this [employer] unspecified chest procedure are in pain type the results section. documented in this encounter Results Exercise Stress Echocardiogram (11/03/2015 2:05 PM [employer]) Anatomical Region Laterality Modality Echocardiography Specimen (Source) Anatomical Collection Method Collection Time Re ceived Time Location / / Volume Laterality 11/03/2015 2:02 PM [employer]NS[employer] Narrative 11/03/2015 3:16 PM [employer] Interpretation Summary [facility] Echocardiography Laboratory [address] [place] [address] Name: FENG DUEÑAS : 1965 Study Date: 11/03/2015 02:02 PM Age: 50 yrs Gender: Male Patient [facility]: [facility] Reason For Study: Chest Pain History: Smoker,Hypertension,Afib Ordering Physician: KALYN HAMPTON Referring Physician: KALYN HAMPTON [facility] Performed By: Pascual Saenz RDCS BSA: 2.1 m2 Height: 69 in Weight: 201 lb HR: 93 BP: 120/84 mmHg Medications: Norvasc,cozaar,ambien Procedure Stress Echo Complete. Interpretation Summary 1. Good functional capacity. 2. Negative Stress EKG for ischemia. 3. Negative Stress echocardiogram for is chemia. Stress A moderate workload was achieved. RPP 19239. Guillen Treadmill Score >= 5 (low risk for cardiovascular events). Exercise was stopped due to dyspnea. The patient did not exhibit any symptoms during exercise. Target Heart Rate was achieved. The EKG portion of this stress test was negative for inducible ischemia (see echo results below). This was a normal stress echocardiogram with no evidence of stress-induced ischemia. Baseline The patient is in normal sinus rhythm. The visual ejection fraction is estimate d at 60-65%. No regional wall motion abnormalities no marcela. Stress Results ?Protocol: ?? Bon ?Maximum Predicted HR: ??170 bpm ?Target HR: 145 bpm ?% Maximum Predicted HR: ??86 % ? +---------+- -------+ +------+ ? : ??Stage ?? :Duration:Heart Rate:BP ?: ? : ? : (mm:ss): ?? (bpm) ??: ?: ? +---------+- -------+ +------+ ? : Stage 1 : ??3:00 11 ?6 ?? :130/84: ? +---------+- -------+ +------+ ? : Stage 2 : ??3:00 12 ?7 ?? :140/84: ? +---------+- -------+ +------+ ? : Stage 3 : ??3:00 14 ?6 ?? :150/84: ? +---------+- -------+ +------+ ? : Stage 4 : ??1:58 14 ?6 ?? :/ ? : ? +---------+- -------+ +------+ ? :Recovery : ??6:00 11 ?4 ?? :120/70: ? +---------+- -------+ +------+ ? Stress Duration: ??10:58 mm:ss * ?Recovery Time: 6:00 mm:ss ?Maximum Stress HR: ?146 bpm METS ? : ?10 Report approved by: Elian Purdy on 11/03/2015 03:16 PM Procedure Note Jj Purdy MD - 11/03/2015F ormatting of this note might be different from the original. Interpretation Summary [facility] E[facility]ocardi[facility] [address] [place] [address] Name: FENG DUEÑAS : 1965 Study Date: 11/03/2015 02:02 PM Age: 50 yrs Gender: Male Patient Location: [facility] Reason For Study: Chest Pain History: Smoker,Hypertension,Afib Ordering Physician: KALYN HAMPTON Referring Physician: KALYN HAMPTON [facility] Performed By: Pascual Saenz RDCS BSA: 2.1 m2 Height: 69 in Weight: 201 lb HR: 93 BP: 120/84 mmHg Medications: Norvasc,cozaar,ambien Procedure Stress Echo Complete. Interpretation Summary 1. Good functional capacity. 2. Negative Stress EKG for ischemia. 3. Negative Stress echocardiogram for is chemia. Stress A moderate workload was achieved. RPP 41599. Guillen Treadmill Score >= 5 (low risk for cardiovascular events). Exercise was stopped due to dyspnea. The patient did not exhibit any symptoms during exercise. Target Heart Rate was achieved. The EKG portion of this stress test was negative for inducible ischemia (see echo results below). This was a normal stress echocardiogram with no evidence of stress-induced ischemia. Baseline The patient is in normal sinus rhythm. The visual ejection fraction is estimate d at 60-65%. No regional wall motion abnormalities no marcela. Stress Results Protocol: Bon Maximum Predicted HR: 1 70 bpm Target HR: 145 bpm % Maximum Predicted HR: 86 % +---------+--------+ +------+ : Stage :Duration:Heart Rate:BP : : : (mm:ss): (bpm) : : +---------+--------+ +------+ : Stage 1 : 3:00 11 6 :130/84: +---------+--------+ +------+ : Stage 2 : 3:00 12 7 :140/84: +---------+--------+ +------+ : Stage 3 : 3:00 14 6 :150/84: +---------+--------+ +------+ : Stage 4 : 1:58 14 6 :/ : +---------+--------+ +------+ :Recovery : 6:00 11 4 :120/70: +---------+--------+ +------+ Stress Duration: 10:58 mm:ss * Recovery Time: 6:00 mm:ss Maximum Stress HR: 146 bpmMETS : 10 Report approved by: Elian Purdy on 11/03/2015 03:16 PM Kalyn Hampton MD CV ECHO ORDERABLES documented in this encounter Visit Diagnoses Diagnosis Chest pain, unspecified chest pain type documented in this encounter Care Teams Mannequin Mold Maker Relationship Specialty Start Date End Date Leticia Armendariz MD PCP - General Internal Medicine 03/17/15 Leticia Armendariz MD PCP - Assigned PCP 06/30/14 11/07/[address] [address] Leticia Armendariz MD Assigned PCP 06/30/14 01/06/19 [facility] [address] [address] documented as of this encounter
--- OUTSIDE RECORDS SUMMARY | 2022-06-25 13:54 | XMS_ITS | Encounter Summary ---
:1965 Author Organization [place] Address [address] [place] [address] Care Team Providers Name Role Phone Leticia Armendariz MD Primary Care Provider Leticia Amrendariz MD Unavailable Leticia Armendariz MD Unavailable Reason for Visit (Routine) - Closed Specialty Diagnoses / Procedures Referred By Contact Refer red To Contact Radiology / Radiology. Diagnoses Epic Order Sh Xray Procedures XR CERVICAL SPINE [address] [place] [address] Phone: Referral ID Status Reason Start Date Expiration Date Visits Requ ested Visits Authorized [id number] Closed 05/13/2015 05/12/2016 1 1 Encounter Details Date Type Department Care Team Description 05/14/2015 Hospital Encounter [facility] Dexter Elias S/P cervical spinal [facility] DICK Pope fusion 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 Medications at Time of Discharge Medication Sig Dispensed Refills Start Date End Date amLODIPine (NORVASC) 5 MG Take 1 tablet (5 90 tablet 1 04/201507/22/2015 tabletIndications: Atrial mg) by mouth daily fibrillation (H) losartan (COZAAR) 50 MG Take 1 tablet (50 90 tablet 1 01/1007/22/2015 tabletIndications: Atrial mg) by mouth daily fibrillation (H) methylPREDNISolone (MEDROL 0 5 06/25/2015 DOSEPAK) 4 MG tablet methylPREDNISolone (MEDROL Follow package 21 tablet 0 05/1406/17/2015 DOSEPAK) 4 MG instructions tabletIndications: Cervical radicular pain avfzbtwz-alnntadag-qmgejig 0 5 08/02/2016 rtisone (CORTISPORIN) 3.5-94871-3 otic suspension varenicline (CHANTIX) 1 MG Take 1 tablet (1 56 tablet 2 08/201506/20/2015 tabletIndications: Tobacco mg) by mouth 2 use disorder times daily zolpidem (AMBIEN) 5 MG Take 1 tablet (5 30 tablet 5 015 09/19/2015 tabletIndications: mg) by mouth Insomnia nightly as needed for sleep documented as of this encounter Plan of Treatment Not on filedocumented as of this encounter Procedures Procedure Name Priority Date/Time Associated Diagnosis Comme nts XR CERVICAL SPINE 1 Routine 05/14/2015 9:50 AM S/P cervical sp inal Results for this VIEW CDT fusion procedure are i n the results section. documented in this encounter Results XR Cervical Spine 1 [...] is demonstrated. SARAH HERNANDEZ MD Dexter Elias ENVIRONMENTAL LEAD IMG DIAGNOSTIC IMAGING ORDER WHITNEY documented in this encounter Visit Diagnoses Diagnosis S/P cervical spinal fusion Arthrodesis status documented in this encounter Care Teams Stretch Press Operator Relationship Specialty Start Date End Date Leticia Armendariz MD PCP - General Internal Medicine 03/17/15 Leticia Armendariz MD PCP - Assigned PCP 06/30/14 11/07/18 [facility] [address] [place] [address] Leticia Armendariz MD Assigned PCP 06/30/14 01/06/19 [facility] [address] [place] [address] documented as of this encounter
--- OUTSIDE RECORDS SUMMARY | 2022-06-25 13:54 | XMS_ITS | Encounter Summary ---
:1965 Author Organization [place] Address [facility] [facility] [place] [address] Care Team Providers Name Role Phone Maged Aggarwal MD Primary Care Provider Leticia Armendariz MD Unavailable Leticia Armendariz MD Unavailable Encounter Details Date Type Department Care Team Description 07/24/2014 Therapy Visit [facility] Keyla Hunter P T LBP (low back pain) Rehabilitation Services [facility] [place] (Primary Dx) [address] [address] [place], [place] [phone] Social History Tobacco Use Types Packs/Day Years Used Date Smoking Tobacco: Every Day Cigarettes Smokeless Tobacco: Never Alcohol Use Standard Drinks/Week Comments No 0 (1 standard drink = 0.6 oz pure alcoho l) 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 Date Recorded 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 encounter Plan of Treatment Not on filedocumented as of this encounter Procedures Procedure Name Priority Date/Time Associated Diagnosis Comme nts [facility] THERAPEUTIC Routine 07/24/2014 7:32 AM LBP (low back pain) ACTIVITIES RECREATION WORKER [facility] THERAPEUTIC EXERCISES Routine 07/24/2014 7:32 AM LBP (low back pain) RECREATION WORKER [facility] NEUROMUSCULAR Routine 07/24/2014 7:32 AM LBP (low back claudio n) RE-EDUCATION RECREATION WORKER documented in this encounter Visit Diagnoses Diagnosis LBP (low back pain) - Primary Lumbago documented in this encounter Care Teams Concrete Carpenter Relationship Specialty Start Date End Date Maged Aggarwal MD PCP - General Internal Medicine 12/14/13 03/16/15 [address] [place] [address] Leticia Armendariz MD PCP - Assigned PCP 06/30/14 11/07/[address] [address] Leticia Armendariz MD Assigned PCP 06/30/14 01/06/[address] [phone] documented as of this encounter
--- OUTSIDE RECORDS SUMMARY | 2022-06-25 13:54 | XMS_ITS | Encounter Summary ---
:1965 Author Organization [facility] Address [address] [place] [address] Care Team Providers Name Role Phone Leticia Armendariz MD Primary Care Provider Leticia Armendariz MD Unavailable Leticia Armendariz MD Unavailable Reason for Visit Reason Comments Chest Pain Encounter Details Date Type Department Care Team Description 10/26/[address] [facility] Nikolas Rocha MD [facility] [address] [id number] Chest pain, unspecified chest pain type; [facility] Emergency [facility] Marixa Hampton MD [facility] [address] [place], [place] [id number] Current smoker [address] [place] [address] Social History Tobacco Use Types Packs/Day Years Used Date Smoking Tobacco: Every Day Cigarettes Smokeless Tobacco: Never Alcohol Use Standard Drinks/Week Comments No 0 (1 standard drink = 0.6 oz pure alcoho l) 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 Date Recorded Male 08/13/2020 9:06 AM STUDENT AMBASSADOR documented as of this encounter Last Filed Vital Signs Vital Sign Reading Time Taken Comments Blood Pressure 112/78 10/26/2015 3:39 PM STUDENT AMBASSADOR Pulse 78 10/26/2015 3:39 PM STUDENT AMBASSADOR Temperature 36.6 ??C (97.9 ??F) 10/26/2015 1:40 PM STUDENT AMBASSADOR Respiratory Rate 16 10/26/2015 3:39 PM STUDENT AMBASSADOR Oxygen Saturation 96% 10/26/2015 1:46 PM STUDENT AMBASSADOR Inhaled Oxygen Concentration - - Weight - - Height - - Body Mass Index - - documented in this encounter Discharge Instructions Discharge InstructionsMarixa Hampton MD - 10/26/2015 3:25 PM STUDENT AMBASSADOR Discharge Instructions Chest Pain You have been seen today for chest pain or discomfort. At this time, your doctor has found no signs that your chest pain is due to a serious or life-threatening condition, (or you have declined more testing and/or admission to the hospital). However, sometimes there is a serious problem that does not show up right away. Your evaluation today may not be complete and you may need further testing and evaluation. You need to follow-up with your regular doctor within 3-7 days (or after stress test). Return to the Emergency Department if: ??? Your chest pain changes, gets worse, starts to happen more often, or comes with less activity. ??? You are short of breath. ??? You get very weak or tired. ??? You pass out or faint. ??? You have any new symptoms, like fever, cough, numb legs, or you cough up blood. ??? You have anything else that worries you. Until you follow-up with your regular doctor please do the following: ??? Take one aspirin daily unless you have an allergy or are told not to by your doctor. ??? If a stress test appointment has been made, go to the appointment. ??? If you have questions, contact your regular doctor. If your doctor today has told you to follow-up with your regular doctor, it is very important that you make an appointment with your clinic and go to the appointment. If you do not follow-up with your primary doctor, it may result in missing an important development which could result in permanent injury or disability and/or lasting pain. If there is any problem keeping your appointment, call your doctor or return to the Emergency Department. If you were given a prescription for [...] call or return to the Emergency Department. ENT AMBASSADOR documented in this encounter Medications at Time of Discharge Medication Sig Dispensed Refills Start Date End Date amLODIPine (NORVASC) 5 MG Take 1 tablet (5 90 tablet 1 12/201503/29/2016 tabletIndications: Atrial mg) by mouth daily fibrillation status post cardioversion (H) losartan (COZAAR) 50 MG Take 1 tablet (50 90 tablet 1 11/0603/29/2016 tabletIndications: Atrial mg) by mouth daily fibrillation status post cardioversion (H) ljxwsisx-zmjxehlox-mfkzuql 0 5 08/02/2016 rtisone (CORTISPORIN) [id number] otic suspension zolpidem (AMBIEN) 5 MG Take 1 tablet (5 30 tablet 5 016 03/25/2016 tabletIndications: Primary mg) by mouth insomnia nightly as needed for sleep documented as of this encounter ED Notes Nikolas Rocha MD - 10/26/2015 2:18 PM CST Care started for wen Rocha MD Emergency Medicine Physician [facility] Nikolas Rocha MD 10/26/15 1418 ENT AMBASSADOR Marixa Hampton MD - 10/26/2015 2:06 PM CST History Chief Complaint: Chest Pain HPI Liliana uDeñas is a 50 year old male with history of HTN and atrial fibrillation who presents to the ED for evaluation of chest pain. The patient reports that he had sudden onset chest pain that wokehim up around 230 am at a 7-8/10 in severity. He immediately took some Pepto-bismol and notes that the episode of waxing and waning chest pain lasted about a half hour then was able to go back to sleep. However, during the day today he notes that he has had a constant pressure and discomfort in his chest. This is much less than the original discomfort and just feels sore. In addition, he is feeling mentally out of sorts. The patient indicates he had chronic neck pain but denies any back or arm pain during his episode of chest pain. He also denies any nausea, dizziness, and shortness of breath during the episode. He does mention slight lightheadedness that has been intermittent today but not specifically associated with symptoms. No exertional changes. The patient is an every day smoker and smokesjust under a pack a day. No other symptoms or concerns are voiced at this time. Cardiac/PE/DVT Risk Factors: History of hypertension - Yes History of hyperlipidemia - No History of diabetes - No History of smoking - Yes Personal history of PE/DVT - No Family history of PE/DVT - No Family history of heart complications - No Recent travel - No Recent surgery - No Other immobilizations - No Cancer - No Allergies: NKDA Medications: Livia James Levaquin Cortisporin Past Medical History: HTN Arrhythmia Hepatitis A.fib Past Surgical History: Vasectomy Fusion cervical anterior one level Family History: Arthritis: Mother Circulatory: Father Social History: The patient was accompanied to the ED by . Smoking Status: Current Every Day Smoker Smokeless Tobacco: Never Used Alcohol Use: No Marital Status: Review of Systems Respiratory: Positive for chest tightness. Negative for shortness of breath. Cardiovascular: Positive for chest pain (now resolved). Gastrointestinal: Negative for nausea. Musculoskeletal: Positive for neck pain (chronic). Negative for myalgias and back pain. Neurological: Positive for light-headedness. Negative for dizziness. All other systems reviewed and are negative. Physical Exam First Vitals: BP: (!) 141/92 mmHg Pulse: 83 Heart Rate: 83 Temp: 97.9 ??F (36.6 ??C) Resp: 18 SpO2: 96 % Physical Exam Eyes: Sclera white; Pupils are equal and round ENT: External ears and nares normal, no goiter CV: Regular rate and rhythm, No murmur No CW tenderness, no rash No BLE edema Resp: Breath sounds clear and equal bilaterally GI: Abdomen is soft, non-tender, non-distended No rebound tenderness or peritoneal features MS: Moves all extremities Skin: Warm and dry Neuro: Speech is normal and fluent. No apparent deficit. Emergency Department Course ECG: ECG done at 1340. ECG read at 1434. Indication- Rule out Cardiac Etiology. Rate 83 bpm. LA interval 176. QRS duration 98. QT/QTc 354/415. P-R-T axes 60 89 34. Normal sinus rhythm Normal ECG No significant changes compared to EKG dated 06/28/13 Imaging: Radiographic findings were communicated with the patient who voiced understanding of the findings. Chest PE CT: IMPRESSION: 1. No CT evidence for acute pulmonary embolus. 2. No acute process or explanation for the patient's symptoms. 3. Old granulomatous disease. Per radiology. Laboratory: CBC: HGB 17.8 high o/w WNL (WBC 7.6, PLT 190) D dimer: <0.3 BMP: Glucose 107 high o/w WNL (Creatinine 1.09) Troponin I: <0.015 Interventions: 1359 NS 1000 mL IV 1429 NS 96 mL IV Emergency Department Course: Nursing notes and vitals reviewed. 1412: I performed an exam of the patient as documented above. 1518: I rechecked the patient and updated him and his . I personally reviewed the laboratory results with the Patient and spouse and answered all related questions prior to discharge. Findings and plan explained to the Patient and spouse. Patient discharged home with instructions regarding supportive care, medications, and reasons to return. The importance of close follow-up was reviewed. Impression & Plan Medical Decision Making: Liliana Dueñas is a 50 year old male here for evaluation of chest pain. It was at its most intensewhen it woke him this morning. A differential is broad and includes ACS, NSTEMI, pericarditis, pneumonia, aortic dissection, pneumothorax. On his initial vitals blood pressure was different in both arms concerning for dissection. Work up was started by Dr. Rocha with appropriate order of a CT chest with contrast to evaluate for dissection. Ultimately blood work returned with unremarkable and CT showed no abnormalities either. With his improvement with Maalox it is possible that this was a esophageal spasm. There is no evidence at this time that symptoms were cardiac in origin. He is a daily smoker and smoking cessation was recommended. He states that the only way he was able to quit in the past was with Chantix and I encouraged him to follow up with primary care provider to discuss starting this again. Based on his age and risk factors of high blood pressure and smoking history outpatient stress test was ordered to evaluate for heart disease. They will be calling him to schedule that this week. Diagnosis: ICD-10-CM 1. Chest pain, unspecified chest pain type R07.9 Exercise Stress Echocardiogram 2. Current smoker F17.200 I Sofia Ortega, am serving as a scribe on 10/26/2015 at 1412 to document services personally performed by Dr. Hampton, based on my observations and the provider's statements to me. [facility] EMERGENCY DEPARTMENT Marixa Hampton MD 10/26/15 1713 ENT AMBASSADOR Mary Barnes RN - 10/26/2015 2:02 PM CST Pt aware of going to CT, awaiting CT to be ready. Will cont to monitor. ENT AMBASSADOR Mary Barnes RN - 10/26/2015 1:57 PM CST I stat Creat= 1.2. Will bolus liter of saline prior to CT scan. ENT AMBASSADOR Mary Barnes RN - 10/26/2015 1:55 PM CST Blood pressure on left arm 148/87 and blood pressure on right arm is 108/89. Dr. Rocha aware. PlanCT scan. ENT AMBASSADOR Mary Barnes RN - 10/26/2015 1:39 PM CST 50-year-old male presents to the ER with complaints of chest pain. Pt states the pain woke him up about 2:30am with chest pain, took pepto and it got better. Went back to bed. But states he is still worried about it. No acute distress noted at this time. Will cont to monitor. ENT AMBASSADOR documented in this encounter Plan of Treatment Not on filedocumented as of this encounter Procedures Procedure Name Priority Date/Time Associated Diagnosis Comme nts CT CHEST PULMONARY STAT 10/26/2015 2:36 PM Res ults for this EMBOLISM W CONTRAST STUDENT AMBASSADOR procedur e are in the results section. TROPONIN POCT Routine 10/26/2015 1:57 PM Chest pain, Results for this STUDENT AMBASSADOR unspecified chest procedure are in pain type the results section. ISTAT CREATININE POCT Routine 10/26/2015 1:55 PM Chest pain, Results for this STUDENT AMBASSADOR unspecified chest procedure are in pain type the results section. CBC WITH PLATELETS & STAT 10/26/2015 1:50 PM R esults for this DIFFERENTIAL STUDENT AMBASSADOR procedure are i n the results section. TROPONIN I Routine 10/26/2015 1:50 PM Results f or this STUDENT AMBASSADOR procedure are i n the results section. D DIMER QUANTITATIVE STAT 10/26/2015 1:50 PM R esults for this STUDENT AMBASSADOR procedure are i n the results section. BASIC METABOLIC PANEL STAT 10/26/2015 1:50 PM Results for this STUDENT AMBASSADOR procedure are i n the results section. EKG 12-LEAD, TRACING STAT 10/26/2015 1:40 PM R esults for this ONLY STUDENT AMBASSADOR procedure are i n the results section. documented in this encounter Results Exercise Stress Echocardiogram (11/03/2015 2:05 PM STUDENT AMBASSADOR) Anatomical Region Laterality Modality Echocardiography Specimen (Source) Anatomical Collection Method Collection Time Re ceived Time Location / / Volume Laterality 11/03/2015 2:02 PM STUDENT AMBASSADOR Narrative 11/03/2015 3:16 PM STUDENT AMBASSADOR Interpretation Summary [facility] Echocardiography Laboratory [address] [place] [address] Name: LILIANA DUEÑAS : 1965 Study Date: 11/03/2015 02:02 PM Age: 50 yrs Gender: Male Patient Location: [facility] Reason For Study: Chest Pain History: Smoker,Hypertension,Afib Ordering Physician: MARIXA HAMPTON Referring Physician: MARIXA HAMPTON [facility] Performed By: Pascual Saenz RDCS BSA: 2.1 m2 Height: 69 in Weight: 201 lb HR: 93 BP: 120/84 mmHg Medications: Norvasc,cozaar,ambien Procedure Stress Echo Complete. Interpretation Summary 1. Good functional capacity. 2. Negative Stress EKG for ischemia. 3. Negative Stress echocardiogram for is chemia. Stress A moderate workload was achieved. RPP 32058. Guillen Treadmill Score >= 5 (low risk [...] be different from the original. Interpretation Summary [facility] Echocardiography Laboratory [address] [place] [address] Name: LILIANA DUEÑAS : 1965 Study Date: 11/03/2015 02:02 PM Age: 50 yrs Gender: Male Patient Location: [facility] Reason For Study: Chest Pain History: Smoker,Hypertension,Afib Ordering Physician: MARIXA HAMPTON Referring Physician: MARIXA HAMPTON [facility] Performed By: Pascual Saenz ANITA BSA: 2.1 m2 Height: 69 in Weight: 201 lb HR: 93 BP: 120/84 mmHg Medications: Norvasccelenazaarlivia Procedure Stress Echo Complete. Interpretation Summary 1. Good functional capacity. 2. Negative Stress EKG for ischemia. 3. Negative Stress echocardiogram for is chemia. Stress A moderate workload was achieved. RPP 31068. Guillen Treadmill Score >= 5 (low risk [...] by: Elian Purdy on 11/03/2015 03:16 PM Marixa Hampton MD CV ECHO ORDERABLES CT Chest Pulmonary Embolism w Contrast (10/26/2015 2:36 PM STUDENT AMBASSADOR) Anatomical Region Laterality Modality Chest, SUBRAD CT BODY, UMP CT CHEST Comp uted Tomography Specimen (Source) Anatomical Location Collection Method / Collectio n Time Received Time / Laterality Volume Impressions 10/26/2015 3:03 PM STUDENT AMBASSADOR IMPRESSION: ?? 1. No CT evidence for acute pulmonary em bolus. 2. No acute process or explanation for t he patient's symptoms. 3. Old granulomatous disease. AKILA ADAME MD Narrative 10/26/2015 3:[address] CHEST PULMONARY EMBOLISM W CONTRAST 10/26/2015 2:36 PM HISTORY: ??Abrupt onset chest pain. Rule out PE. ?? TECHNIQUE: 100 ??mL Isovue 370. Axial im ages with coronal reconstructions. COMPARISON: ??None. FINDINGS: ??Small calcified granulomas i n both lungs. Lungs are otherwise clear. No pneumothorax. Calcif ied bilateral hilar lymph nodes. Mediastinal and hilar structures are otherwise within normal limits. No significant adenopathy. The pulmonary arteries are well opacifie d. No CT evidence for acute pulmonary embolus. Procedure Note Akila Adame MD - 6 CT CHEST PULMONARY EMBOLISM W CONTRAST 2:36 PM HISTORY: Abrupt onset chest pain. Rule o ut PE. TECHNIQUE: 100 mL Isovue 370. Axial imag es with coronal reconstructions. COMPARISON: None. FINDINGS: Small calcified granulomas in both lungs. Lungs are otherwise clear. No pneumothorax. Calcif ied bilateral hilar lymph nodes. Mediastinal and hilar structures are otherwise within normal limits. No significant adenopathy. The pulmonary arteries are well opacifie d. No CT evidence for acute pulmonary embolus. IMPRESSION: 1. No CT evidence for acute pulmonary em bolus. 2. No acute process or explanation for t he patient's symptoms. 3. Old granulomatous disease. AKILA ADAME MD Nikolas Rocha MD IMG CT ORDERABLES Troponin POCT (10/26/2015 1:57 PM STUDENT AMBASSADOR) P athologist Signature Troponin I 0.00 0.00 - 0.10 POINT OF CARE ug/L TEST, HANDHELD METER Specimen Anatomical Collection Method Collection Time Receive d Time (Source) Location / / Volume Laterality 10/26/2015 1:57 PM 6 8:50 STUDENT AMBASSADOR AM STUDENT AMBASSADOR iNkolas Rocha MD LAB - ENTER/EDIT POCT Performing Organization Address City/[facility]/ZIP Code Phon e Number FV POINT OF CARE TEST, HANDHELD METER POINT OF CARE TEST, HANDHELD METER Creatinine POCT (10/26/2015 1:55 PM STUDENT AMBASSADOR) athologist Signature Creatinine 1.2 0.66 - POINT OF CARE 1.25 mg/dL TEST, HANDHELD METER GFR Estimate 64 >60 POINT OF CARE mL/min/1.7 TEST, HANDHELD m2 METER GFR Estimate If 78 >60 POINT OF CARE Black mL/min/1.7 TEST, HANDHELD m2 METER Specimen Anatomical Collection Method Collection Time Receive d Time (Source) Location / / Volume Laterality 10/26/2015 1:55 PM 6 8:50 STUDENT AMBASSADOR AM STUDENT AMBASSADOR Nikolas Rocha MD LAB - BEAKER POCT Performing Organization Address City/[facility]/ZIP Code Phon e Number FV POINT OF CARE TEST, HANDHELD METER POINT OF CARE TEST, HANDHELD METER Troponin I (10/26/2015 1:50 PM STUDENT AMBASSADOR) [facility] Method Time Signature Troponin I ES <0.015 0.000 [facility] The 99th percentile for uppe r reference range is 0.045 ug/L. ??Troponin values in 0.045 RIDGES the range of 0.045 - 0.120 ug/L may be associated wit h risks of adverse ug/L HOSPITAL clinical events. Specimen Anatomical Collection Method Collection Time Receive d Time (Source) Location / / Volume Laterality 10/26/2015 1:50 PM 6 2:03 STUDENT AMBASSADOR PM STUDENT AMBASSADOR Nikolas Rocha MD LAB - BLOOD ORDERABLES Performing Organization Address City/[facility]/ZIP Code Phon e Number M [facility] [address] [place], [place] [address] [phone] [facility] [address] [phone] (ABNORMAL) Basic metabolic panel (10/26/2015 1:50 PM STUDENT AMBASSADOR) athologist Signature Sodium 138 133 - 144 [facility] mmol/L [facility] Potassium 3.9 3.4 - 5.3 [facility] mmol/L [facility] Comment: Specimen slightly hemolyzed, po tassium may be falsely elevated Chloride 106 94 - 109 mmol/L [facility] Carbon Dioxide 28 20 - 32 mmol/L [facility] Anion Gap 4 3 - 14 mmol/L [facility] Glucose 107 (H) 70 - 99 mg/dL [facility] Urea Nitrogen 11 7 - 30 mg/dL [facility] Creatinine 1.09 0.66 - 1.25 mg/dL [facility] GFR Estimate 71 >60 mL/min/1.7m2 [facility] Comment: Non GFR Calc GFR Estimate If Black 86 >60 mL/min/1.7m2 F [facility] Comment: GFR Calc Calcium 9.0 8.5 - 10.1 mg/dL [facility] Specimen Anatomical Collection Method Collection Time Receive d Time (Source) Location / / Volume Laterality Blood specimen 10/26/2015 1:50 PM 016 2:03 (specimen) STUDENT AMBASSADOR PM STUDENT AMBASSADOR Nikolas Rocha MD LAB - BLOOD ORDERABLES Performing Organization Address City/State/ZIP Code Phon e Number M [place] [address] [address] [place], [place] [address] [facility] [address] [place], [place] [address] [phone] D dimer quantitative (10/26/2015 1:50 PM STUDENT AMBASSADOR) [facility] Method Time Signature D Dimer <0.3 0.0 - [place] This D-dimer assay is intended for use i n conjuntion with a clinical pretest 0.50 [facility] probability assessment model to exclude pulmonary embolism (PE) and as an aid ug/ml [facility] in the diagnosis of deep ve nous thrombosis (DVT) in outpatients suspected of PE or DVT. The cut-off value is 0.5??g/mL [facility]. Specimen Anatomical Collection Method Collection Time Receive d Time (Source) Location / / Volume Laterality Blood specimen 10/26/2015 1:50 PM 016 2:03 (specimen) STUDENT AMBASSADOR PM STUDENT AMBASSADOR Nikolas Rocha MD LAB - BLOOD ORDERABLES Performing Organization Address City/State/ZIP Code Phon e Number M [facility] [address] [place] [address] [facility] [address] [phone] (ABNORMAL) CBC with platelets differential (10/26/2015 1:50 PM STUDENT AMBASSADOR) [facility] Method Time Signature WBC 7.6 4.0 - [place] 11.0 [facility] 10e9/L [facility] RBC Count 5.67 4.4 - 5.9 [place] 10e12/L [facility] Hemoglobin 17.8 (H) 13.3 - [place] 17.7 g/dL [facility] Hematocrit 49.5 40.0 - [place] 53.0 % [facility] MCV 87 78 - 100 [facility] MCH 31.4 26.5 - [place] 33.0 pg [facility] MCHC 36.0 31.5 - [place] 36.5 g/dL [facility] RDW 11.8 10.0 - [place] 15.0 % [facility] Platelet Count 190 150 - [address]/[facility] Diff Method Automated [place] Method [facility] % Neutrophils 63.1 % [facility] % Lymphocytes 26.2 % [facility] % Monocytes 8.3 % [facility] % Eosinophils 1.0 % [facility] % Basophils 1.0 % [facility] % Immature 0.4 % [place] Granulocytes [facility] Nucleated RBCs 0 0 /100 [facility] Absolute 4.8 1.6 - 8.3 [place] Neutrophil 10e9/L [facility] Absolute 2.0 0.8 - 5.3 [place] Lymphocytes 10e9/L [facility] Absolute 0.6 0.0 - 1.3 [place] Monocytes 10e9/L [facility] Absolute 0.1 0.0 - 0.7 [place] Eosinophils 10e9/L [facility] Absolute 0.1 0.0 - 0.2 [place] Basophils 10e9/[facility] Abs Immature 0.0 0 - 0.4 [place] Granulocytes 10e9/[facility] Absolute 0.0 [place] Nucleated RBC [facility] Specimen Anatomical Collection Method Collection Time Receive d Time (Source) Location / / Volume Laterality Blood specimen 10/26/2015 1:50 PM 016 2:03 (specimen) STUDENT AMBASSADOR PM STUDENT AMBASSADOR Nikolas Rocha MD LAB - BLOOD ORDERABLES Performing Organization Address City/State/ZIP Code Phon e Number [place] [address] [address] [place] [address] [facility] [address] [phone] EKG 12 lead (10/26/2015 1:40 PM STUDENT AMBASSADOR) [facility] gist Method Time Signature Interpretation ECG Click View RADIOLOGY Image link RESULTS to view waveform and result Specimen (Source) Anatomical Collection Method Collection Time Re ceived Time Location / / Volume Laterality 10/26/2015 1:40 PM STUDENT AMBASSADOR Nikolas Rocha MD ECG ORDERABLES Performing Organization Address City/State/ZIP [facility] Phon e Number RADIOLOGY RESULTS documented in this encounter Visit Diagnoses Diagnosis Chest pain, unspecified chest pain type Current smoker Tobacco use disorder Chest pain, unspecified chest pain type documented in this encounter Administered Medications Inactive Administered Medications - up to 3 most recent administrations Medication Order MAR Action Action Date Dose Rate Site 0.9% sodium chloride BOLUS New Bag 10/26/2015 1:59 PM STUDENT AMBASSADOR 1,000 mLs 1000 mL/hr Intravenous, 1,000 mL, ONCE, at 1,000 mL/hr, Administer over 1 Hours, On 10/26/15 at 1347, For 1 dose 0.9% sodium chloride BOLUS New Bag 10/26/2015 2:29 PM STUDENT AMBASSADOR 96 mLs Intravenous, 1,000 mL, ONCE, On 10/26/15 at 1429, For 1 dose iopamidol (ISOVUE-370) 76% solution 500 mL Given 10/26/2015 2:28 PM STUDENT AMBASSADOR 84 mLs 500 mL, Intravenous, ONCE, On 10/26/15 at 1429, For 1 dose documented in this encounter Active and Recently Administered Medications Times are shown in STUDENT AMBASSADOR. Scheduled Medication Order 10/24/2015 10/25/2015 10/26/2015 0.9% sodium chloride BOLUS (COMPLETED) 1359 (New Bag - Provider: Mary Barnes, RN)1532 (Stopped - Provider: Regan Pavon, [place]) Intravenous, 1,000 mL, ONCE, at 1,000 mL /hr, Administer over 1 Hours, On 10/26/15 at 1347, For 1 dose 0.9% sodium chloride BOLUS (COMPLETED) 1429 (New Bag - Provider: Yassine Dowd - Comment: bulk)1439 (Stopped - Provider: Yassine Dowd) Intravenous, 1,000 mL, ONCE, 10/26/15 at 1429, For 1 dose iopamidol (ISOVUE-370) 76% solution 500 mL (COMPLETED) 1428 (Given - Provider: Yassine Dowd) 500 mL, Intravenous, ONCE, 10/26/15 at 1429, For 1 dose documented in this encounter Care Teams Silk Screener Relationship Specialty Start Date End Date Leticia Armendariz MD PCP - General Internal Medicine 03/17/15 Leticia Armendariz MD PCP - Assigned PCP 06/30/14 11/07/[address] [address] Leticia Armendariz MD Assigned PCP 06/30/14 01/06/[address] [address] documented as of this encounter
--- OUTSIDE RECORDS SUMMARY | 2022-06-25 13:54 | XMS_ITS | Encounter Summary ---
:1965 Author Organization [place] Address [address] [place] [address] Care Team Providers Name Role Phone Leticia Armendariz MD Primary Care Provider Leticia Armendariz MD Unavailable Leticia Armendariz MD Unavailable Reason for Visit (Routine) - Closed Specialty Diagnoses / Procedures Referred By Contact Refer red To Contact Radiology / Radiology. Diagnoses epic, MRI safe, Rh Mri Procedures MR CERVICAL SPINE [facility] [address] [place] [address] Phone: Fax: Referral ID Status Reason Start Date Expiration Date Visits Requ ested Visits Authorized [id number] Closed 05/14/2015 05/13/2016 1 1 Encounter Details Date Type Department Care Team Description 05/14/2015 Hospital Encounter [facility] Dexter Elias Cerv ical radicular [facility] pain [address] [address] [place], [place] [phone] [id number] Social History Tobacco Use Types Packs/Day Years Used Date Smoking Tobacco: Every Day Cigarettes Smokeless Tobacco: Never Alcohol Use Standard Drinks/Week Comments No 0 (1 standard drink = 0.6 oz pure alcoho l) 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 Date Recorded 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 documented in this encounter Results MR Cervical Spine w/o Contrast (05/14/2015 1:42 PM CDT) Anatomical Region Laterality Modality Spine, SUBRAD MR NEURO, UMP MR SPINE Mag netic Resonance Specimen (Source) Anatomical Location Collection Method / Collectio n Time Received Time / Laterality Volume Impressions 05/14/2015 2:24 PM CDT IMPRESSION: ?? 1. C5-C6 anterior spinal fusion with gordy te, screws and graft. This is new since the previous MRI. 2. C3-C4 mild degenerative disc disease cause mild spinal canal stenosis and mild bilateral foraminal st enosis. 3. C4-C5 minimal central posterior disc protrusion. ?? 4. No change. MARISSA LOBO MD Narrative 05/14/2015 2:24 PM CDT MRI CERVICAL SPINE WITHOUT CONTRAST 05/14/2015, 1:42 PM HISTORY: Two months of neck pain and two weeks of left arm pain, numbness and weakness. TECHNIQUE: Multiplanar, multisequence MR I of the cervical spine without contrast. COMPARISON: 03/08/2014 and 08/13/2014. FINDINGS: The cervical spinal cord and v isualized portions of the thoracic spinal cord appear normal. ??Th e visualized portions of the brainstem and cerebellum appear normal. ?? Alignment: Normal. ?? Craniocervical Junction and C1-C2: ??Nor mal. C2-C3: ??Normal disc, facet joints, spin al canal and neural foramina. C3-C4: ??Mild circumferential disc bulge . Vertebral endplate remodeling and uncinate spurs bilaterally cause mil d spinal canal stenosis and mild bilateral foraminal stenosis. Karen l facet joints. C4-C5: ??Minimal central posterior disc protrusion. Mild degeneration of the right facet joint. Otherwise norm al. C5-C6: ??Anterior spinal fusion with gordy te, screws and graft. I cannot determine whether the fusion is solid or not. Normal spinal canal, facet joints and neural foramina. C6-C7: ??Normal disc, facet joints, spin al canal and neural foramina. C7-T1: Normal disc, facet joints, spinal canal and neural foramina. T1-T2: ??Normal disc, facet joints, spin al canal and neural foramina. Paraspinous Soft Tissues: ??Normal as vi sualized. Bone Marrow: ??Normal signal intensity. Procedure Note Marissa Lobo MD - 05/14/2015Formatt ing of this note might be different from the original. MRI CERVICAL SPINE WITHOUT CONTRAST 2014, 1:42 PM HISTORY: Two months of neck pain and two weeks of left arm pain, numbness and weakness. TECHNIQUE: Multiplanar, multisequence MR I of the cervical spine without contrast. COMPARISON: 03/08/2014 and 08/13/2014. FINDINGS: The cervical spinal cord and v isualized portions of the thoracic spinal cord appear normal. The visualized portions of the brainstem and cerebellum appear normal. Alignment: Normal. Craniocervical Junction and C1-C2: Karen l. C2-C3: Normal disc, facet joints, spinal canal and neural foramina. C3-C4: Mild circumferential disc bulge. Vertebral endplate remodeling and uncinate spurs bilaterally cause mil d spinal canal stenosis and mild bilateral foraminal stenosis. Karen l facet joints. C4-C5: Minimal central posterior disc pr otrusion. Mild degeneration of the right facet joint. Otherwise norm al. C5-C6: Anterior spinal fusion with plate , screws and graft. I cannot determine whether the fusion is solid or not. Normal spinal canal, facet joints and neural foramina. C6-C7: Normal disc, facet joints, spinal canal and neural foramina. C7-T1: Normal disc, facet joints, spinal canal and neural foramina. T1-T2: Normal disc, facet joints, spinal canal and neural foramina. Paraspinous Soft Tissues: Normal as visu alized. Bone Marrow: Normal signal intensity. IMPRESSION IMPRESSION: 1. C5-C6 anterior spinal fusion with gordy te, screws and graft. This is new since the previous MRI. 2. C3-C4 mild degenerative disc disease cause mild spinal canal stenosis and mild bilateral foraminal st enosis. 3. C4-C5 minimal central posterior disc protrusion. 4. No change. MARISSA LOBO MD Dexter Elias LANGUAGE PATHOLOGIST IMG MRI ORDERABLES documented in this encounter Visit Diagnoses Diagnosis Cervical radicular pain Brachial neuritis or radiculitis nos documented in this encounter Care Teams Art Installer Relationship Specialty Start Date End Date Leticia Armendariz MD PCP - General Internal Medicine 03/17/15 Leticia Armendariz MD PCP - Assigned PCP 06/30/14 11/07/18 [facility] [address] [place] [address] Leticia Armendariz MD Assigned PCP 06/30/14 01/06/19 [facility] [address] [place] [address] documented as of this encounter
--- OUTSIDE RECORDS SUMMARY | 2022-06-25 13:54 | XMS_ITS | Encounter Summary ---
:1965 Author Organization [facility] Address [address] [place] [address] Care Team Providers Name Role Phone Maged Aggarwal MD Primary Care Provider Leticia Armendariz MD Unavailable Leticia Armendariz MD Unavailable Reason for Visit Reason Comments Hypertension Encounter Details Date Type Department Care Team Description 01/10/2015 Office Visit [facility] Leticia Armendariz Atrial fibrillation (H) (Primary Dx); Clinic Demarco Bender MD Tobacco use disorder; [address] HTN (hypertension) [place] [address] [place] [address] [phone] Social History Tobacco Use Types Packs/Day Years Used Date Smoking Tobacco: Every Day Cigarettes Smokeless Tobacco: Never Alcohol Use Standard Drinks/Week Comments No 0 (1 standard drink = 0.6 oz pure alcoho l) 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 Date Recorded 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 SUBJECTIVE: Feng Perez is a 49 year old male who presents to clinic today for the following health issues: Hypertension Follow-up ?? Outpatient blood pressures are not being checked. ?? Low Salt Diet: no added salt ?? Amount of exercise or physical activity: 6-7 days/week for an average of greater than 60 minutes ?? Problems taking medications regularly: No ?? Medication side effects: none ?? Diet: low salt and carbohydrate counting PROBLEMS TO ADD ON... Problem list and histories reviewed & adjusted, as indicated. Additional history: as documented Problem list, Medication list, Allergies, and Medical/Social/Surgical histories reviewed in EPIC andupdated as appropriate. ROS: C: NEGATIVE for fever, chills, change in weight R: NEGATIVE for significant cough or SOB CV: NEGATIVE for chest pain, palpitations or peripheral edema OBJECTIVE: BP 112/74 Pulse 84 Temp(Src) 98.3 ??F (36.8 ??C) (Oral) Ht 5' 10 (1.778 m) Wt 219 lb (99.338 kg) BMI 31.42 kg/m2 SpO2 96% Body mass index is 31.42 kg/(m^2). GENERAL: healthy, alert and no distress RESP: lungs clear to auscultation - no rales, rhonchi or wheezes CV: regular rate and rhythm, normal S1 S2, no S3 or S4, no murmur, click or rub ASSESSMENT/PLAN: (427.31) Atrial fibrillation (primary encounter diagnosis) Comment: Plan: losartan (COZAAR) 50 MG tablet, amLODIPine (NORVASC) 5 MG tablet (305.1) Tobacco use disorder Comment: Plan: varenicline (CHANTIX) 1 MG tablet (401.9) HTN (hypertension) Comment: at goal Plan: Basic metabolic panel, Microalbumin quantitative random urine Leticia Armendariz MD [facility] documented in this encounter Nursing Notes Juliet Parsons LPN - 01/10/2015 8:17 AM CDT . Chief Complaint Patient presents with ??? Hypertension initial BP 112/74 Pulse 84 Temp(Src) 98.3 ??F (36.8 ??C) (Oral) Ht 5' 10 (1.778 m) Wt 219 lb (99.338 kg) BMI 31.42 kg/m2 SpO2 96% Estimated body mass index is 31.42 kg/(m^2) as calculated from the following: Height as of this encounter: 5' 10 (1.778 m). Weight as of this encounter: 219 lb (99.338 kg).. bp completed using cuff size large JULIET PARSONS LPN documented in this encounter Plan of Treatment Not on filedocumented as of this encounter Procedures Procedure Name Priority Date/Time Associated Comments Diagnosis ALBUMIN RANDOM URINE Routine 01/10/2015 8:47 AM HTN (hypertens ion) Results for this QUANTITATIVE CDT procedure are i n the results section. BASIC METABOLIC PANEL Routine 01/10/2015 8:46 AM HTN (hyperten suman) Results for this CDT procedure are i n the results section. documented in this encounter Results Microalbumin quantitative random urine (01/10/2015 8:47 AM CDT) P athologist Signature Creatinine 203 mg/dL [place] Urine [facility] Albumin Urine 21 mg/L [place] mg/L [facility] Albumin Urine 10.25 0 - 17 [place] mg/g Cr mg/g Cr [facility] Specimen Anatomical Collection Method Collection Time Receive d Time (Source) Location / / Volume Laterality Urine specimen 01/10/2015 8:47 AM 015 8:49 (specimen) CDT AM CDT Leticia Armendariz MD LAB - URINE ORDERABLES Performing Organization Address City/State/ZIP Code Phon e Number [facility] [address] [place] [address] [address] [facility] [address], [place] [address], [place] [phone] Basic metabolic panel (01/10/2015 8:46 AM CDT) P athologist Signature Sodium 138 133 - 144 [place] mmol/L [facility] Potassium 4.3 3.4 - 5.3 [place] mmol/L [facility] Chloride 106 94 - 109 [place] mmol/L [facility] Carbon Dioxide 28 20 - 32 [place] mmol/L [facility] Anion Gap 4 3 - 14 [place] mmol/L [facility] Glucose 90 70 - 99 [place] mg/dL [facility] Urea Nitrogen 14 7 - 30 [place] mg/dL [facility] Creatinine 1.21 0.66 - [place] 1.25 mg/dL [facility] GFR Estimate 64 >60 [place] mL/min/1.7 CLINICS m2 [facility] Comment: Non GFR Calc GFR Estimate If Black 77 >60 mL/min/1.7m2 F [facility] Comment: GFR Calc Calcium 8.8 8.5 - 10.1 mg/dL [place] [facility] I[facility] Specimen Anatomical Collection Method Collection Time Receive d Time (Source) Location / / Volume Laterality Blood specimen 01/10/2015 8:46 AM 015 8:48 (specimen) CDT AM CDT Leticia Armendariz MD LAB - BLOOD ORDERABLES Performing Organization Address City/State/ZIP Code Phon e Number [facility] [address] [place] [address] documented in this encounter Visit Diagnoses Diagnosis Atrial fibrillation (H) - Primary Atrial fibrillation Tobacco use disorder HTN (hypertension) Unspecified essential hypertension documented in this encounter Care Teams Senior Business Development Manager Relationship Specialty Start Date End Date Maged Aggarwal MD PCP - General Internal Medicine 12/14/13 03/16/15 [address] [place] [address] Leticia Armendariz MD PCP - Assigned PCP 06/30/14 11/07/18 [facility] [address] [place] [address] Leticia Armendariz MD Assigned PCP 06/30/14 01/06/19 [facility] [address] [place] [address] documented as of this encounter
--- OUTSIDE RECORDS SUMMARY | 2022-06-25 13:54 | XMS_ITS | Encounter Summary ---
:1965 Author Organization [facility] Address [address] [place] [address] Care Team Providers Name Role Phone Leticia Armendariz MD Primary Care Provider Leticia Armendariz MD Unavailable Leticia Armendariz MD Unavailable Reason for Visit Reason Onset Date Comments Refill Request 03/17/2015 Zolpidem Encounter Details Date Type Department Care Team Description 03/17/2015 Refill [facility] Leticia Armendariz Refill Request (Zolpidem) Demarco Bender MD [address] [place] [address] [place] [address] [address] [phone] Social History Tobacco Use Types Packs/Day Years Used Date Smoking Tobacco: Every Day Cigarettes Smokeless Tobacco: Never Alcohol Use Standard Drinks/Week Comments No 0 (1 standard drink = 0.6 oz pure alcoho l) 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 Date Recorded 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 Telephone Encounter - Leticia Armendariz MD - 03/17/2015 1:51 PM CDT Please let pt know script is ready. thanks Telephone Encounter - Elba Wooten - 03/17/2015 9:56 AM CDT Zolpidem Last Written Prescription Date: 09/06/14 Last Fill Quantity: 30, # refills: 5 Last Office Visit with [facility] primary care provider: 01/10/15 Future Office visit: Routing refill request to provider for review/approval because: Drug not on the [facility] refill protocol or controlled substance documented in this encounter Plan of Treatment Not on filedocumented as of this encounter Visit Diagnoses Diagnosis Insomnia - Primary Insomnia, unspecified documented in this encounter Care Teams Chemical Process Project Engineer Relationship Specialty Start Date End Date Leticia Armendariz MD PCP - General Internal Medicine 03/17/15 Leticia Armendariz MD PCP - Assigned PCP 06/30/14 11/07/[address] [address] Leticia Armendariz MD Assigned PCP 06/30/14 01/06/[address] [address] documented as of this encounter
--- OUTSIDE RECORDS SUMMARY | 2022-06-25 13:54 | XMS_ITS | Encounter Summary ---
:1965 Author Organization [facility] Address [address] [place] [address] Care Team Providers Name Role Phone Leticia Leon MD Primary Care Provider Leticia Leon MD Unavailable Leticia Leon MD Unavailable Reason for Referral Diagnostic Procedure Outpatient - Closed Specialty Diagnoses / Procedures Referred By Contact Refer red To Contact Diagnoses Colon cancer screening Leticia Leon MD [facility] [address] [place] [address] [place] [address] Phone: Fax: Referral ID Status Reason Start Date Expiration Date Visits Requ ested Visits Authorized [id number] Closed 06/17/2015 06/16/2016 1 1 Consultation - Closed Specialty Diagnoses / Procedures Referred By Contact Refer red To Contact Diagnoses Testicular pain Leticia Leon MD [facility] [address] [place] [address] [place] [address] Phone: [phone] Referral ID Status Reason Start Date Expiration Date Visits Requ ested Visits Authorized [id number] Closed 06/17/2015 06/16/2016 1 1 Reason for Visit Reason Comments Mass right side scrotum Encounter Details Date Type Department Care Team Description 06/17/2015 Office Visit [facility] Leticia Leon lar pain (Primary Dx); Clinic Demarco Bender MD Colon cancer screening; [address] [facility] Epididymitis, right [place] [address] [place] [address] [place] [address] [phone] Social History Tobacco Use Types Packs/Day Years Used Date Smoking Tobacco: Every Day Cigarettes Smokeless Tobacco: Never Tobacco Cessation: Ready to Quit: Yes; C ounseling Given: No Alcohol Use Standard Drinks/Week Comments No 0 (1 standard drink = 0.6 oz pure alcoho l) 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 Date Recorded 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 Last Filed Vital Signs Vital Sign Reading Time Taken Comments Blood Pressure 130/80 06/17/2015 8:38 AM CDT Pulse 89 06/17/2015 8:38 AM CDT Temperature 37.3 ??C (99.2 ??F) 06/17/2015 8:38 AM CDT Respiratory Rate - - Oxygen Saturation 98% 06/17/2015 8:38 AM CDT Inhaled Oxygen Concentration - - Weight 91.5 kg (201 lb 12.8 oz) 06/17/2015 8:38 AM CDT Height 175.3 cm (5' 9) 06/17/2015 8:38 AM CDT Body Mass Index 29.8 06/17/2015 8:38 AM CDT documented in this encounter Progress Notes Leticia Leon MD - 06/17/2015 8:40 AM CDT SUBJECTIVE: Feng Perez is a 50 year old male who presents to clinic today for the following health issues: Painful lump. He reports that he found a lump at right testicle one week ago. He reports that he has had intermittent discomfort in both testicles for a couple of days. He also has lower abdomen pain for the past week. The patient has had abdominal pain for 15-20 minutes after voiding over the past year. He had been seen by urology in the past year for decreased urination over the past 5 years. No dysuria or hematuria. Denies any fevers or chills. Libido is down. No heavy lifting recently. He used to do steroids when he was weight lifting. He has lost 15 pounds over the past year. No testicular cancer in his family. Problem list and histories reviewed & adjusted, as indicated. ROS: C: NEGATIVE for fever, chills, change in weight R: NEGATIVE for significant cough or SOB CV: NEGATIVE for chest pain, palpitations or peripheral edema GI: lower abdominal pain; no change in bowel movements or blood in stool : painful testicular lump OBJECTIVE: BP 130/80 mmHg Pulse 89 Temp(Src) 99.2 ??F (37.3 ??C) (Oral) Ht 5' 9 (1.753 m) Wt 201 lb 12.8 oz (91.536 kg) BMI 29.79 kg/m2 SpO2 98% Body mass index is 29.79 kg/(m^2). GENERAL: healthy, alert and no distress RESP: lungs clear to auscultation - no rales, rhonchi or wheezes CV: regular rate and rhythm, normal S1 S2, no S3 or S4, no murmur, click or rub, no peripheral edema ABDOMEN: soft, tender in lower quadrants, no hepatosplenomegaly, no masses and bowel sounds normal : no hernia appreciated; no lump appreciated; tender on right testicle ASSESSMENT/PLAN: (N50.8) Testicular pain (primary encounter diagnosis) Comment: Plan: *UA reflex to Microscopic, US Testicular and Scrotum, UROLOGY ADULT REFERRAL (Z12.11) Colon cancer screening Comment: Plan: GASTROENTEROLOGY ADULT REFERRAL +/- PROCEDURE Leticia Leon MD [facility] documented in this encounter Nursing Notes NickyLori samson S - 06/17/2015 8:40 AM CDT Chief Complaint Patient presents with ??? Mass right side scrotum Initial BP 130/80 mmHg Pulse 89 Temp(Src) 99.2 ??F (37.3 ??C) (Oral) Ht 5' 9 (1.753 m) Wt 201 lb 12.8 oz (91.536 kg) BMI 29.79 kg/m2 SpO2 98% Estimated body mass index is 29.79 kg/(m^2) ascalculated from the following: Height as of this encounter: 5' 9 (1.753 m). Weight as of this encounter: 201 lb 12.8 oz (91.536 kg). BP completed using cuff size: large Lori Askew MA documented in this encounter Miscellaneous Notes Addendum Note - Leticia Leon MD - 06/17/2015 4:09 PM CDT Addended by: LETICIA LEON on: 06/17/2015 04:09 PM Modules accepted: Orders documented in this encounter Plan of Treatment Scheduled Referrals Name Type Priority Associated Diagnoses Order S [facility] UROLOGY ADULT REFERRAL Referral Routine Testicular pain Or dered: 06/17/2015 GASTROENTEROLOGY ADULT Referral Routine Colon cancer Order ed: 06/17/2015 REFERRAL +/- PROCEDURE screening documented as of this encounter Procedures Procedure Name Priority Date/Time Associated Comments Diagnosis UA MACROSCOPIC WITH Routine 06/17/2015 8:20 AM Testicular pain Results for this REFLEX TO MICRO CDT procedure ar e in the results section. documented in this encounter Results US Testicular & Scrotum w [facility] (06/17/2015 3:17 PM CDT) Anatomical Region Laterality Modality Abdomen/Pelvis Ultrasound Specimen (Source) Anatomical Location Collection Method / Collectio n Time Received Time / Laterality Volume Impressions 06/17/2015 3:53 PM CDT IMPRESSION: ?? 1. Normal testicles without torsion or m ass. No evidence of orchitis. 2. Possible mild increased color Doppler flow right epididymis which could indicate mild underlying epididymi tis. Findings called to Dr. Leon by the ambulatory technologist at the time of the exam. JEREMIAS ORTEZ MD Narrative 06/17/2015 3:53 PM CDT ULTRASOUND TESTICULAR AND SCROTUM WITH DOPPLER LIMITED June 17, 2015 3:17 PM HISTORY: Testicular pain. Specified diso rders of male genital organs. FINDINGS: The testicles bilaterally are homogeneous in echotexture without focal mass. The right testicle m easures 3.7 x 2.2 x 3.0 cm. The left testicle measures 4.2 x 2.0 x 2 .8 cm. Color Doppler waveform analysis demonstrates normal arterial wa veforms within the testicles. No evidence of testicular torsion. The r ight epididymis is slightly increased in color Doppler flow compared to the left epididymis. The left epididymis is normal. No varicocele s or hydroceles are evident. Procedure Note Jeremias Ortez MD - 06/17/2015Form atting of this note might be different from the original. ULTRASOUND TESTICULAR AND SCROTUM WITH Nikole ECHEVERRIA LIMITED June 17, 2015 3:17 PM HISTORY: Testicular pain. Specified diso rders of male genital organs. FINDINGS: The testicles bilaterally are homogeneous in echotexture without focal mass. The right testicle m easures 3.7 x 2.2 x 3.0 cm. The left testicle measures 4.2 x 2.0 x 2 .8 cm. Color Doppler waveform analysis demonstrates normal arterial wa veforms within the testicles. No evidence of testicular torsion. The r ight epididymis is slightly increased in color Doppler flow compared to the left epididymis. The left epididymis is normal. No varicocele s or hydroceles are evident. IMPRESSION IMPRESSION: 1. Normal testicles without torsion or m ass. No evidence of orchitis. 2. Possible mild increased color Doppler flow right epididymis which could indicate mild underlying epididymi tis. Findings called to Dr. Leon by the ambulatory technologist at the time of the exam. JEREMIAS ORTEZ MD Leticia Leon MD IMG US ORDERABLES *UA reflex to Microscopic (06/17/2015 8:20 AM CDT) [facility] Method Time Signature Color Urine Yellow [facility] Appearance Urine Clear [facility] Glucose Urine Negative NEG mg/dL [facility] Bilirubin Urine Negative NEG [facility] Ketones Urine Negative NEG mg/dL [facility] Specific [place] 1.010 1.003 - [place] Urine 1.035 [facility] Blood Urine Negative NEG [facility] pH Urine 7.0 5.0 - 7.0 [facility] Protein Albumin Negative NEG mg/dL [place] Urine [facility] Urobilinogen 0.2 0.2 - 1.0 [place] Urine EU/dL [facility] Nitrite Urine Negative NEG [facility] Leukocyte Negative NEG [place] Esterase Urine [facility] Source Midstream [place] Urine [facility] Specimen Anatomical Collection Method Collection Time Receive d Time (Source) Location / / Volume Laterality Urine specimen 06/17/2015 8:20 AM 015 9:49 (specimen) CDT AM CDT Leticia Leon MD LAB - URINE ORDERABLES Performing Organization Address City/State/ZIP Code Phon e Number [facility] [address] [place], [place] [address] [address] documented in this encounter Visit Diagnoses Diagnosis Testicular pain - Primary Unspecified disorder of male genital org ans Colon cancer screening Special screening for malignant neoplasm s, colon Epididymitis, right Orchitis and epididymitis, unspecified Testicular pain Unspecified disorder of male genital org ans documented in this encounter Care Teams Pharmacy Technology Instructor Relationship Specialty Start Date End Date Leticia Leon MD PCP - General Internal Medicine 03/17/15 Leticia Leon MD PCP - Assigned PCP 06/30/14 11/07/[address] [address] Leticia Leon MD Assigned PCP 06/30/14 01/06/[address] [address] documented as of this encounter
--- OUTSIDE RECORDS SUMMARY | 2022-06-25 13:54 | XMS_ITS | Encounter Summary ---
:1965 Author Organization [facility] Address [address] [place] [address] Care Team Providers Name Role Phone Leticia Armendariz MD Primary Care Provider Leticia Armendariz MD Unavailable Leticia Armendariz MD Unavailable Reason for Visit Auth/Cert - Closed Specialty Diagnoses / Procedures Referred By Contact Refer red To Contact Gastroenterology Diagnoses Screening Endoscopy Procedures COLONOSCOPY [address] [place] [address] Phone: Fax: Referral ID Status Reason Start Date Expiration Date Visits Requ ested Visits Authorized [id number] Closed 1 1 Encounter Details Date Type Department Care Team Description 06/25/2015 Surgery [facility] Endoscopy Haven Rangel MD Colonoscopy [facility] GASTROENTEROLOGY [address] [facility] [address] [place] [address] [place] [address] [phone] (Wo rk) Surgery Details Date/Time Status Location OR Service Patient Class Case Case Trauma Class Type Case? 06/25/15 Posted GI GI B Gastroenterology Outpatient 2:00 PM Panel 1 Procedure [facility]RB Anes Op Region Wound Class Commen ts Colonoscopy N/A Conscious Sedation Rectum II-Clean Contami nated Colonoscopy Surgeon Surgeon Role Service Panel Haven Sosa MD Primary Gastroenterology 1 documented in this encounter Social History Tobacco Use Types Packs/Day Years Used Date Smoking Tobacco: Every Day Cigarettes Smokeless Tobacco: Never Alcohol Use Standard Drinks/Week Comments No 0 (1 standard drink = 0.6 oz pure alcoho l) 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 Date Recorded Male 08/13/2020 9:06 AM [employer] documented as of this encounter Last Filed Vital Signs Vital Sign Reading Time Taken Comments Blood Pressure 129/79 06/25/2015 2:30 PM CDT Pulse - - Temperature - - Respiratory Rate 18 06/25/2015 2:30 PM CDT Oxygen Saturation 94% 06/25/2015 2:30 PM CDT Inhaled Oxygen Concentration - - Weight - - Height - - Body Mass Index - - documented in this encounter Discharge Instructions Discharge InstructionsSavanna Velasquez RN - 06/25/2015 2:50 PM CDT Images from the original note were not included. The patient has received a copy of the Provation report the doctor has written and discharge instructions have been discussed with the patient and responsible adult. All questions were addressed and answered prior to patient discharge. DIVERTICULOSIS You have diverticulosis. This means that small pouches have formed in the wall of the colon (large intestine). Most often, this problem causes no symptoms. But the pouches in the colon are at risk for becoming infected or inflamed. When this happens, the condition is called diverticulitis. The doctor will talk with you about how to manage your condition. Diet changes may be all that are needed to help control diverticulosis and prevent progression to diverticulitis. If you develop diverticulitis, other treatments will likely be needed. HOME CARE Medications: You may be told to take fiber supplements daily. Fiber adds bulk to the stool so that it passes through the colon more easily. Stool softeners may be recommended. You may also be given medications for pain relief. Be sure to take all medications as directed. General Care: ??? Eat unprocessed foods that are high in fiber. Whole grains, fruits, and vegetables are good choices. ??? Drink 6 to 8 glasses of water daily. ??? Watch for changes in your bowel movements. Tell the doctor if you notice any changes. ??? Begin an exercise program. Ask your doctor how to get started. ??? Get plenty of rest and sleep. FOLLOW UP as advised by the doctor or our staff. Regular visits may be needed to check on your health. Be sure to keep all your appointments. GET PROMPT MEDICAL ATTENTION if any of the following occurs: ??? Fever of 100.6??F (38??C) or higher, or as directed by your healthcare provider ??? Severe cramps in the lower left side of the abdomen or pain that is getting progressively worse. ??? Tenderness in the lower left side of the abdomen or worsening pain throughout the abdomen ??? Diarrhea or constipation that does not improve within 24 hours ??? Nausea and vomiting ??? Bleeding from the rectum ?? [id number] [place] [address]. All rights reserved. This information is not intended as a substitute for professional medical care. Always follow your healthcare professional's instructions. documented in this encounter Medications at Time of Discharge Medication Sig Dispensed Refills Start Date End Date amLODIPine (NORVASC) 5 MG Take 1 tablet (5 mg) 90 tablet 1 01/10/2015 07/22/2015 tabletIndications: Atrial by mouth daily fibrillation (H) levofloxacin (LEVAQUIN) Take 1 tablet (500 10 tablet 0 06/0510/26/2015 500 MG tabletIndications: mg) by mouth daily Epididymitis, right losartan (COZAAR) 50 MG Take 1 tablet (50 90 tablet 1 01/1007/22/2015 tabletIndications: Atrial mg) by mouth daily fibrillation (H) [id number] 0 02/18/2015 08/02/2016 ortisone (CORTISPORIN) 3.5-20939-3 otic suspension zolpidem (AMBIEN) 5 MG Take 1 tablet (5 mg) 30 tablet 5 09/19/2015 tabletIndications: by mouth nightly as Insomnia needed for sleep documented as of this encounter Procedure Notes Haven Sosa MD - 06/25/2015 2:06 PM CDT PRE-PROCEDURE H&P CHIEF COMPLAINT / REASON FOR PROCEDURE: screening PERTINENT HISTORY : Past Medical History Diagnosis Date ??? Hypertension ??? Arrhythmia afib ablation ??? Hepatitis 15 yrs ago from bad food Past Surgical History Procedure Laterality Date ??? Genitourinary surgery vasectomy ??? Fusion cervical anterior one level 04/15/2014 Procedure: FUSION CERVICAL ANTERIOR ONE LEVEL; Surgeon: Umang Sandoval MD; Location: [facility] Bleeding tendencies: No Relevant Family History: NONE Relevant Social History: NONE A relevant review of systems was performed and was negative ALLERGIES/SENSITIVITIES: No Known Allergies CURRENT MEDICATIONS: No current outpatient prescriptions on file. PRE-SEDATION ASSESSMENT: Lung Exam: normal Heart Exam: normal Airway Exam: normal Previous reaction to anesthesia/sedation: No Sedation plan based on assessment: Moderate (conscious) sedation ASA Classification: 2 - Mild systemic disease IMPRESSION: screening PLAN: colonoscopy Haven Sosa MD [facility] Office: [phone] documented in this encounter Plan of Treatment Not on filedocumented as of this encounter Procedures Procedure Name Priority Date/Time Associated Diagnosis Comme nts COLONOSCOPY Routine 06/25/2015 1:59 PM Results f or this CDT procedure are i n the results section . COLONOSCOPY 06/25/2015 1:59 PM Screening CDT documented in this encounter Results COLONOSCOPY (06/25/2015 1:59 PM CDT) [facility] Method Time Signature COLONOSCOPY [facility] RAD IOLOGY RESULTS Patient Name: Feng Perez ?Proce chane Date: 06/25/2015 1:59 PM ? Accou nt Number: [id number] Date of : 1965 ?Admit Type: Out patient Age: 50 ? Gender: Male Attending MD: Haven Sosa MD ? Instrument Name: 121 Procedure: ?Colonoscopy Indications: ?Screening for colorec deyvi malignant neoplasm Providers: ?Haven Sosa MD, Svetlana Pastrana RN (Nurse) Referring MD: ? Leticia Armendariz MD Medicines: ?Midazolam 2 mg IV, Fentanyl 100 micrograms IV Complications: ?No immediate complications. Procedure: ?Pre-Anesthesia Assessment: ?- Prior to the procedure, a History and Physical ?was performed, and patient medications and ?allergies were reviewed. The patient is competent. ?The risks and benefits of the procedure and the ?sedation options and risks were discussed with the ?patient. All questions were answered and informed ?consent was obtained. Patient identification and ?proposed procedure were verified by the physician ?and the nurse in the procedure room. Mental Status ?E xamination: alert and oriented. Airway ?Examination: normal oropharyngeal airway and neck ?mobility. Respiratory Examination: clear to ?auscultation. CV Examination: normal. Prophylactic ?Antibiotics: The patient does not require ?prophylactic antibiotics. Prior Anticoagulants: The ?patient has taken no previous anticoagulant or ?antiplatelet agents. ASA Grade Assessment: II - A ?patient with mild systemic disease. After reviewing ?the risks and benefits, the patient was deemed in ?satisfactory condition to undergo the procedure. ?The anesthesia plan was to use moderate sedation / ?analgesia (conscious sedation). Immediately prior ?to administration of medications, the patient was ?re-assessed for adequacy to receive sedatives. The ?heart rate, respiratory rate, oxygen saturations, ?blood pressure, adequacy of pulmonary ventilation, ?and response to care were monitored throughout the ?procedure. The physical status of the patient was ?re-assessed after the procedure. ?After obtaining informed consent, the colonoscope ?was passed under direct vision. Throughout the ?procedure, the patient's blood pressure, pulse, and ?oxygen saturations were monitored continuously. The ?[id number] was introduced through the anus and ?advanced to the cecum, identified by appendiceal ?orifice and ileocecal valve. The colonoscopy was ?performed without difficulty. The patient tolerated ?the procedure well. The quality of the bowel ?preparation was good. ? Findings: ? Many medium-mouthed diverticula were foun d in the sigmoid colon and in ? the descending colon. ? Internal hemorrhoids were found during retroflexion a nd were small. ? The exam was otherwise without abnormality. ? Impression: ? - Diverticulosis in the sigmoid colon and in the ?descending colon. ?- Internal hemorrhoid s. ?- The examination was otherwise normal. Recommendation: ? - Repeat colonosc opy in 10 years for screening ?purposes. ? B Ian Plummer Haven Sosa MD 06/25/2015 2:34 PM I was physically present for the entire viewing portion of t he exam. Number of Addenda: 0 Note Initiated On: 06/25/2015 1:59 PM MRN: ?[id number] Procedure Date: ? 06/25/2015 1:59:27 PM Scope Withdrawal Time: 0 hours 11 minutes 13 seconds Total Procedure Duration: 0 hours 14 minutes 11 seconds Estimated Blood Loss: ? Scope In: 2:15:39 PM Scope Out: 2:29:50 PM Specimen (Source) Anatomical Collection Method Collection Time Re ceived Time Location / / Volume Laterality 06/25/2015 1:59 PM CDT Leticia Armendariz MD PROCEDURES Performing Organization Address City/State/ZIP Code Phon e Number RADIOLOGY RESULTS documented in this encounter Visit Diagnoses Not on filedocumented in this encounter Administered Medications Inactive Administered Medications - up to 3 most recent administrations Medication Order MAR Action Action Date Dose Rate Site fentaNYL (SUBLIMAZE) injection Given 06/25/2015 2:07 PM CDT 100 mcg PRN, Starting on Tue06/25/15 at 1407, Intra-procedure midazolam (VERSED) injection Given 06/25/2015 2:07 PM CDT 2 mg PRN, Starting on Tue06/25/15 at 1407, Intra-procedure sodium chloride (PF) 0.9% PF flush 3 mL Given 06/25/2015 2:07 PM CDT 3 mLs 3 mL, Intravenous, EVERY 1 HOUR PRN, line flush, post meds or blood draw, Starting on Tue06/25/15 at 1343, for peripheral IV flush post IV meds, Pre-procedure documented in this encounter Active and Recently Administered Medications Times are shown in CDT. PRN Medication Order 06/23/2015 06/24/2015 06/25/2015 fentaNYL (SUBLIMAZE) injection (CANCELED) 1407 (Given - Provider: Haven Sosa MD) PRN, Starting Tue06/25/15 at 1407, Intra-procedure midazolam (VERSED) injection (CANCELED) 1407 (Given - Provider: Haven Sosa MD) PRN, Starting Tue06/25/15 at 1407, Intra-procedure sodium chloride (PF) 0.9% PF flush 3 mL (CANCELED) 1407 (Given - Provider: Haven Sosa MD) 3 mL, Intravenous, EVERY 1 HOUR PRN, miki e flush, post meds or blood draw, Starting Tue06/25/15 at 1343, for peripheral IV flush post IV meds, Pre-procedure documented in this encounter Care Teams Cooker Casing Relationship Specialty Start Date End Date Leticia Armendariz MD PCP - General Internal Medicine 03/17/15 Leticia Armendariz MD PCP - Assigned PCP 06/30/14 11/07/18 [facility] [address] [place] [address] Leticia Armendariz MD Assigned PCP 06/30/14 01/06/[address] [facility] [address] [place] [id number] documented as of this encounter
--- OUTSIDE RECORDS SUMMARY | 2022-06-25 13:54 | XMS_ITS | Encounter Summary ---
:1965 Author Organization [facility] Address [address] [place] [address] Care Team Providers Name Role Phone Leticia Armendariz MD Primary Care Provider Leticia Armendariz MD Unavailable Leticia Armendariz MD Unavailable Reason for Visit Reason Onset Date Comments Refill Request 10/24/2015 Amlodipine and Losar conti Encounter Details Date Type Department Care Team Description 10/24/2015 Refill [facility] Leticia Armendariz Refill Request Demarco Bender MD (Amlodipine and Losartan) [address] [phone] [id number] Social History Tobacco Use Types Packs/Day Years Used Date Smoking Tobacco: Every Day Cigarettes Smokeless Tobacco: Never Alcohol Use Standard Drinks/Week Comments No 0 (1 standard drink = 0.6 oz pure alcoho l) 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 Date Recorded 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 GER PHOTO Telephone Encounter - Mary Simmons - 10/24/2015 9:23 AM CST Amlodipine Last Written Prescription Date: 07/22/15 Last Fill Quantity: 90, # refills: 1 Last Office Visit with [facility] primary care provider: 06/17/15 Future Office Visit: none BP Readings from Last 3 Encounters: 06/25/15 112/74 06/17/15 130/80 05/14/15 129/78 Losartan Last Written Prescription Date: 07/22/15 Last Fill Quantity: 90, # refills: 1 Last Office Visit with [facility] primary care provider: 06/17/15 POTASSIUM Date Value Ref Range Status 01/10/2015 4.3 3.4 - 5.3 mmol/L Final CREATININE Date Value Ref Range Status 01/10/2015 1.21 0.66 - 1.25 mg/dL Final BP Readings from Last 3 Encounters: 06/25/15 112/74 06/17/15 130/80 05/14/15 129/78 GER PHOTO documented in this encounter Plan of Treatment Not on filedocumented as of this encounter Visit Diagnoses Diagnosis Atrial fibrillation status post cardiove rsion - Primary documented in this encounter Care Teams Cross Cut Saw Operator Relationship Specialty Start Date End Date Leticia Armendariz MD PCP - General Internal Medicine 03/17/15 Leticia Armendariz MD PCP - Assigned PCP 06/30/14 11/07/[address] [address] Leticia Armendariz MD Assigned PCP 06/30/14 01/06/19 [facility] [address] [address] documented as of this encounter
--- OUTSIDE RECORDS SUMMARY | 2022-06-25 13:54 | XMS_ITS | Encounter Summary ---
:1965 Author Organization [facility] Address [address] [place] [id number] Care Team Providers Name Role Phone Maged Aggarwal MD Primary Care Provider Leticia Armendariz MD Unavailable Leticia Armendariz MD Unavailable Encounter Details Date Type Department Care Team Description 08/09/2014 [facility] Umang Sandoval S/P marisol ervical spinal Neurosurgery Clinic MD Ramon fusion (Primary Dx) [address] ORTHOPEDICS [place] [address] [address] [facility] [address] [place] [address] [place], [place] [phone] (Wo rk) Social History Tobacco Use Types Packs/Day Years Used Date Smoking Tobacco: Every Day Cigarettes Smokeless Tobacco: Never Alcohol Use Standard Drinks/Week Comments No 0 (1 standard drink = 0.6 oz pure alcoho l) 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 Date Recorded 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 1. Good postoperative appearance from di scectomy and anterior spinal fusion at C5-C6. 2. No change in the degenerative disc di sease at C3-C4, C4-C5 and C6-C7. ?? MARISSA LOBO MD Narrative 08/13/2014 10:27 AM FASHION STYLING INTERN MRI CERVICAL SPINE WITHOUT AND WITH CONTRAST August 13, 2014 8:27 AM HISTORY: Arthrodesis status. TECHNIQUE: Multiplanar, multisequence MR I of the cervical spine without and with 10 mL Gadavist. COMPARISON: 03/08/2014. FINDINGS: The cervical spinal cord and v isualized portions of the thoracic spinal cord appear normal. ??Th e visualized portions of the brainstem and cerebellum appear normal. ??No abnormal gadolinium enhancement is seen in the thecal sac or spinal cord. Alignment: Normal. Craniocervical Junction and C1-C2: Karen l. C2-C3: Normal disc, facet joints, spinal canal and neural foramina. C3-C4: Bilateral uncinate spurring. Slig ht narrowing of left neural foramen. Otherwise normal. C4-C5: Minimal left uncinate spurring. O therwise normal. C5-C6: Anterior spinal fusion with plate , screws and graft, in good position. No evidence of complications. Good decompression of the spinal canal with no residual disc herni ation. Mild left foraminal stenosis from uncinate spurring. Normal right foramen and facet joints. C6-C7: Minimal circumferential disc bulg e. Otherwise normal. C7-T1: Normal disc, facet joints, spinal canal and neural foramina. T1-T2: Normal disc, facet joints, spinal canal and neural foramina. Paraspinous Soft Tissues: Normal as visu alized. Bone Marrow: Normal signal intensity. Procedure Note Marissa Lobo MD - 08/13/2014Formatt ing of this note might be different from the original. MRI CERVICAL SPINE WITHOUT AND WITH CONT RAST August 13, 2014 8:27 AM HISTORY: Arthrodesis status. TECHNIQUE: Multiplanar, multisequence MR I of the cervical spine without and with 10 mL Gadavist. COMPARISON: 03/08/2014. FINDINGS: The cervical spinal cord and v isualized portions of the thoracic spinal cord appear normal. The visualized portions of the brainstem and cerebellum appear normal. No abnormal gadolinium enhancement is seen in the thecal sac or spinal cord. Alignment: Normal. Craniocervical Junction and C1-C2: Karen l. C2-C3: Normal disc, facet joints, spinal canal and neural foramina. C3-C4: Bilateral uncinate spurring. Slig ht narrowing of left neural foramen. Otherwise normal. C4-C5: Minimal left uncinate spurring. O therwise normal. C5-C6: Anterior spinal fusion with plate , screws and graft, in good position. No evidence of complications. Good decompression of the spinal canal with no residual disc herni ation. Mild left foraminal stenosis from uncinate spurring. Normal right foramen and facet joints. C6-C7: Minimal circumferential disc bulg e. Otherwise normal. C7-T1: Normal disc, facet joints, spinal canal and neural foramina. T1-T2: Normal disc, facet joints, spinal canal and neural foramina. Paraspinous Soft Tissues: Normal as visu alized. Bone Marrow: Normal signal intensity. IMPRESSION IMPRESSION: 1. Good postoperative appearance from di scectomy and anterior spinal fusion at C5-C6. 2. No change in the degenerative disc di sease at C3-C4, C4-C5 and C6-C7. MARISSA LOBO MD Umang Sandoval MD IMG MRI ORDERABLES documented in this encounter Visit Diagnoses Diagnosis S/P cervical spinal fusion - Primary Arthrodesis status S/P cervical spinal fusion Arthrodesis status documented in this encounter Care Teams Head Gauge Unit Operator Relationship Specialty Start Date End Date Maged Aggarwal MD PCP - General Internal Medicine 12/14/13 03/16/[address] [place] [address] Leticia Armendariz MD PCP - Assigned PCP 06/30/14 11/07/18 [facility] [address] [place] [address] Leticia Armendariz MD Assigned PCP 06/30/14 01/06/19 [facility] [address] [place] [address] documented as of this encounter
--- OUTSIDE RECORDS SUMMARY | 2022-06-25 13:54 | XMS_ITS | Encounter Summary ---
:1965 Author Organization [facility] Address [address] [place] [address] Care Team Providers Name Role Phone Maged Aggarwal MD Primary Care Provider Leticia Armendariz MD Unavailable Leticia Armendariz MD Unavailable Reason for Visit Reason Comments Neurologic Problem Post-op f/u Encounter Details Date Type Department Care Team Description 08/14/2014 Office Visit [facility] Umang Sandoval S/P c ervical spinal Neurosurgery Clinic MD Ramon fusion (Primary Dx) [address] ORTHOPEDICS [address] [place] [address] [place], [place] [phone] (Wo rk) Social History Tobacco Use Types Packs/Day Years Used Date Smoking Tobacco: Every Day Cigarettes Smokeless Tobacco: Never Alcohol Use Standard Drinks/Week Comments No 0 (1 standard drink = 0.6 oz pure alcoho l) 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 Date Recorded 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 of this encounter Last Filed Vital Signs Vital Sign Reading Time Taken Comments Blood Pressure 127/75 08/14/2014 1:09 PM HOUSEKEEPING AIDE Pulse 87 08/14/2014 1:09 PM HOUSEKEEPING AIDE Temperature - - Respiratory Rate - - Oxygen Saturation - - Inhaled Oxygen Concentration - - Weight - - Height - - Body Mass Index - - documented in this encounter Progress Notes Umang Sandoval MD - 08/14/2014 1:17 PM CST Pt is doing well following ACDF Some posterior neck and intrascapular pain/numbness Arms better MRI looks great Call with any further questions or concerns EKEEPING AIDE Leeanne Victor - 08/14/2014 1:09 PM CST Feng Perez is a 49 year old male who presents for: Chief Complaint Patient presents with ??? Neurologic Problem Post-op f/u Initial Vitals: BP 127/75 Pulse 87 Estimated body mass index is 30.85 kg/(m^2) as calculated from the following: Height as of 07/10/14: 5' 10 (1.778 m). Weight as of 08/13/14: 215 lb (97.523 kg).. There is no height or weight on file to calculate BSA. BP completed using cuff size: regular Data Unavailable Do you feel safe in your environment? Yes Do you need any refills today? No Nursing Comments:Post-op f/u 4minutes nursing intake time Leeanne Victor Discharge plan: Patient will f/u as needed 2minutes nursing discharge time Leeanne Victor CMA signature EKEEPING AIDE documented in this encounter Plan of Treatment Not on filedocumented as of this encounter Visit Diagnoses Diagnosis S/P cervical spinal fusion - Primary Arthrodesis status documented in this encounter Care Teams Grommet Man Relationship Specialty Start Date End Date Maged Aggarwal MD PCP - General Internal Medicine 12/14/13 03/16/15 [address] [place] [address] Leticia Armendariz MD PCP - Assigned PCP 06/30/14 11/07/[address] [address] Leticia Armendariz MD Assigned PCP 06/30/14 01/06/[address] [address] documented as of this encounter
--- OUTSIDE RECORDS SUMMARY | 2022-06-25 13:54 | XMS_ITS | Encounter Summary ---
:1965 Author Organization [facility] Address [address] [place] [address] Care Team Providers Name Role Phone Maged Aggarwal MD Primary Care Provider Leticia Armendariz MD Unavailable Leticia Armendariz MD Unavailable Reason for Visit (Routine) - Closed Specialty Diagnoses / Procedures Referred By Contact Refer red To Contact Radiology / Radiology. Diagnoses R#NA, Epic Sh Mri Procedures MR CERVICAL SPINE [facility] [address] [place] [address] Phone: Referral ID Status Reason Start Date Expiration Date Visits Requ ested Visits Authorized [id number] Closed 08/09/2014 08/09/2015 1 1 Encounter Details Date Type Department Care Team Description 08/13/2014 Hospital Encounter [facility] Umang Sandoval S/P cervical spinal [facility] MD Ramon fusion 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 documented as of this encounter Last Filed Vital Signs Vital Sign Reading Time Taken Comments Blood Pressure - - Pulse - - Temperature - - Respiratory Rate - - Oxygen Saturation - - Inhaled Oxygen Concentration - - Weight 97.5 kg (215 lb) 08/13/2014 7:38 AM MARINE OIL TERMINAL SUPERINTENDENT Height - - Body Mass Index 30.85 07/10/2014 8:37 AM MARINE OIL TERMINAL SUPERINTENDENT documented in this encounter Medications at Time of Discharge Medication Sig Dispensed Refills Start Date End Date amLODIPine (NORVASC) 5 MG Take 1 tablet (5 90 tablet 0 07/0610/28/2014 tabletIndications: Atrial mg) by mouth daily fibrillation (H) HYDROcodone-acetaminophen Take 1-2 tablets by 50 tablet 0 0 04/16/2014 01/10/2015 (NORCO) 5-325 MG per mouth every 4 hours tabletIndications: as needed for 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 pain (pain) radiculopathy losartan (COZAAR) 50 MG Take 1 tablet (50 90 tablet 0 07/2410/28/2014 tabletIndications: Atrial mg) by mouth daily fibrillation (H) methocarbamol (ROBAXIN) Take 1 tablet (750 40 tablet 0 04/0501/10/2015 750 MG tabletIndications: mg) by mouth every S/P cervical spinal 6 hours as needed fusion for muscle spasms senna-docusate Take 1-2 tablets by 60 tablet 0 04/16/2014 0 01/10/2015 (SENOKOT-S;PERICOLACE) mouth 2 times daily 8.6-50 MG per tabletIndications: S/P cervical spinal fusion tamsulosin (FLOMAX) 0.4 Take 1 capsule (0.4 30 capsule 1 08/201401/10/2015 MG 24 hr mg) by mouth daily capsuleIndications: S/P cervical spinal fusion varenicline (CHANTIX) 1 Take 1 tablet (1 56 tablet 2 201301/10/2015 MG tabletIndications: mg) by mouth 2 Tobacco use disorder times daily documented as of this encounter Plan of Treatment Not on filedocumented as of this encounter Procedures Procedure Name Priority Date/Time Associated Diagnosis Comme nts MR CERVICAL SPINE Routine 08/13/2014 8:27 AM S/P cervical spin al Results for this W/O & W CONTRAST MARINE OIL TERMINAL SUPERINTENDENT fusion procedure a re in the results section. documented in this encounter Results MR Cervical Spine w/o & w Contrast (08/13/2014 8:27 AM MARINE OIL TERMINAL SUPERINTENDENT) Anatomical Region Laterality Modality Spine, SUBRAD MR NEURO, UMP MR SPINE Mag netic Resonance Specimen (Source) Anatomical Location Collection Method / Collectio n Time Received Time / Laterality Volume Impressions 08/13/2014 10:27 AM MARINE OIL TERMINAL SUPERINTENDENT IMPRESSION: ?? 1. Good postoperative appearance from di scectomy and anterior spinal fusion at C5-C6. 2. No change in the degenerative disc di sease at C3-C4, C4-C5 and C6-C7. ?? MARISSA LOBO MD Narrative 08/13/2014 10:27 AM MARINE OIL TERMINAL SUPERINTENDENT MRI CERVICAL SPINE WITHOUT AND WITH CONTRAST [...] C6-C7. MARISSA LOBO MD Umang Sandoval MD [facility] MRI ORDERABLES documented in this encounter Visit Diagnoses Diagnosis S/P cervical spinal fusion Arthrodesis status documented in this encounter Administered Medications Inactive Administered Medications - up to 3 most recent administrations Medication Order MAR Action Action Date Dose Rate Site gadobutrol (GADAVIST) Given 08/13/2014 8:03 AM MARINE OIL TERMINAL SUPERINTENDENT 10 mLs Right Arm injection 10 mL 10 mL, Intravenous, ONCE, On Tue08/13/14 at 0745, For 1 dose, Supplied by, and administered by MRI. documented in this encounter Care Teams Dehydrator Operator Relationship Specialty Start Date End Date Maged Aggarwal MD PCP - General Internal Medicine 12/14/13 03/16/15 [address] [place] [address] Leticia Armendariz MD PCP - Assigned PCP 06/30/14 11/07/[address] [phone] Leticia Armendariz MD Assigned PCP 06/30/14 01/06/[address] [address] documented as of this encounter
--- OUTSIDE RECORDS SUMMARY | 2022-06-25 13:54 | XMS_ITS | Encounter Summary ---
:1965 Author Organization [facility] Address [address] [place] [address] Care Team Providers Name Role Phone Maged Aggarwal MD Primary Care Provider Leticia Armendariz MD Unavailable Leticia Armendariz MD Unavailable Reason for Referral Consultation - Closed Specialty Diagnoses / Procedures Referred By Contact Refer red To Contact Diagnoses Tremor Leticia Armendariz MD [facility] NEUROLOGY [address] [facility] [place] [id number] [place] [address] Phone: Fax: Referral ID Status Reason Start Date Expiration Date Visits Requ ested Visits Authorized [id number] Closed 10/18/2014 04/16/2015 1 1 ICE AIDE Reason for Visit Reason Comments Tremors pt c/o shaking tremors mostl y in left hand and has also noticed his lower clip and chin. pt does not k now how long it has been going on but are now getting worse. pt did have n gucci surgery last April , neck is always sore. 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 documented as of this encounter Last Filed Vital Signs Vital Sign Reading Time Taken Comments Blood Pressure 122/84 10/18/2014 9:31 AM HOSPICE AIDE Pulse 106 10/18/2014 9:31 AM HOSPICE AIDE Temperature 37.1 ??C (98.7 ??F) 10/18/2014 9:31 AM HOSPICE AIDE Respiratory Rate - - Oxygen Saturation 98% 10/18/2014 9:31 AM HOSPICE AIDE Inhaled Oxygen Concentration - - Weight 97.5 kg (215 lb) 10/18/2014 9:31 AM HOSPICE AIDE Height 177.8 cm (5' 10) 10/18/2014 9:31 AM HOSPICE AIDE Body Mass Index 30.85 10/18/2014 9:31 AM HOSPICE AIDE documented in this encounter Patient Instructions Patient InstructionsLeticia Armendariz MD - 10/18/2014 10:14 AM CST You can reach your [facility] Care Team any time of the day by calling [phone]. This number will put you in touch with the 24 hour nurse line even if the clinic is closed. The clinic hours for [facility] are: Tuesday through 7am to 6pm Tuesday 7am to 5pm Tuesday 8am to 12p for Pediatrics only. To contact your Factory Assembler please call [phone]. This is a direct number for your care team during clinic hours. [facility] is now open for your convenience: Tuesday through Tuesday 7:30am to 7pm Tuesday and Tuesday 9am to 3pm They are closed on all major holidays. ICE AIDE documented in this encounter Progress Notes Leticia Armendariz MD - 10/18/2014 9:33 AM CST . SUBJECTIVE: Feng Perez is a 49 year old male who presents to clinic today for the following health issues: Tremor. Over the past 2 months he has noticed an increased tremor, more on the left hand. The tremoris more at rest and improves with movement. He has had a tremor prior to his neck injury and surgery. No family history of a tremor. He also has noticed a tremor of his chin. Denies any problems walking or with shuffling gait. Problem list and histories reviewed & adjusted, as indicated. ROS: C: NEGATIVE for fever, chills, change in weight R: NEGATIVE for significant cough or SOB CV: NEGATIVE for chest pain, palpitations or peripheral edema Neuro: tremor OBJECTIVE: BP 122/84 Pulse 106 Temp(Src) 98.7 ??F (37.1 ??C) (Oral) Ht 5' 10 (1.778 m) Wt 215 lb (97.523 kg) BMI 30.85 kg/m2 SpO2 98% Body mass index is 30.85 kg/(m^2). GENERAL: healthy, alert and no distress RESP: lungs clear to auscultation - no rales, rhonchi or wheezes CV: regular rate and rhythm, normal S1 S2, no S3 or S4, no murmur, click or rub Neuro: resting tremor of the left hand; no cogwheeling appreciated; no abnormality in his gait ASSESSMENT/PLAN: (781.0) Tremor (primary encounter diagnosis) Comment: does not appear to meet criteria of essential tremor Plan: NEUROLOGY ADULT REFERRAL, TSH with free T4 reflex (401.9) HTN (hypertension) Comment: Plan: Basic metabolic panel Leticia Armendariz MD [facility] ICE AIDE documented in this encounter Nursing Notes Juliet Parsons LPN - 10/18/2014 9:33 AM CST . Chief Complaint Patient presents with ??? Tremors pt c/o shaking tremors mostly in left hand and has also noticed his lower clip and chin. pt does not know how long it has been going on but are now getting worse. pt did have neck surgery last April , neck is always sore. initial BP 122/84 Pulse 106 Temp(Src) 98.7 ??F (37.1 ??C) (Oral) Ht 5' 10 (1.778 m) Wt 215 lb (97.523 kg) BMI 30.85 kg/m2 SpO2 98% Estimated body mass index is 30.85 kg/(m^2) as calculatedfrom the following: Height as of this encounter: 5' 10 (1.778 m). Weight as of this encounter: 215 lb (97.523 kg).. bp completed using cuff size large JULIET PARSONS LPN ICE AIDE documented in this encounter Plan of Treatment Scheduled Referrals Name Type Priority Associated Diagnoses Order S [facility] NEUROLOGY ADULT REFERRAL Referral Routine Tremor Ord ered: 10/18/2014 documented as of this encounter Procedures Procedure Name Priority Date/Time Associated Diagnosis Comme nts TSH WITH FREE T4 Routine 10/18/2014 10:22 AM Tremor Resu lts for this REFLEX HOSPICE AIDE procedure are i n the results section. BASIC METABOLIC Routine 10/18/2014 10:22 AM HTN (hypertension) Results for this PANEL HOSPICE AIDE procedure are i n the results section. documented in this encounter Results (ABNORMAL) Basic metabolic panel (10/18/2014 10:22 AM HOSPICE AIDE) athologist Signature Sodium 140 133 - 144 [place] mmol/L [facility] Potassium 4.7 3.4 - 5.3 [place] mmol/L [facility] Chloride 105 94 - 109 [place] mmol/L [facility] Carbon Dioxide 26 20 - 32 [place] mmol/L [facility] Anion Gap 9 3 - 14 [place] mmol/L [facility] Glucose 67 (L) 70 - 99 [place] mg/dL [facility] Comment: Effective 04/03/2014, the reference range for this assay has changed to reflect new instrumentation/methodology. Urea Nitrogen 11 7 - 30 mg/dL [place] [facility] Comment: Effective 04/03/2014, the reference range for this assay has changed to reflect new instrumentation/methodology. Creatinine 1.29 (H) 0.66 - 1.25 mg/dL [place] [facility] GFR Estimate 59 (L) >60 mL/min/1.7m2 [place] [facility] Comment: Non GFR Calc GFR Estimate If Black 71 >60 mL/min/1.7m2 F [facility] Comment: GFR Calc Calcium 9.5 8.5 - 10.1 mg/dL [place] [facility] Comment: Effective 04/03/2014, the reference range for this assay has changed to reflect new instrumentation/methodology. Specimen Anatomical Collection Method Collection Time Receive d Time (Source) Location / / Volume Laterality Blood specimen 10/18/2014 10:22 5 (specimen) AM HOSPICE AIDE 10:24 AM HOSPICE AIDE Leticia Armendariz MD LAB - BLOOD ORDERABLES Performing Organization Address City/[facility]/ZIP Code Phon e Number [facility] [address] [place] [address] TSH with free T4 reflex (10/18/2014 10:22 AM HOSPICE AIDE) P athologist Signature TSH 1.10 0.40 - 4.00 [facility] mU/L [facility] Comment: Effective 04/03/2014, the reference range for this assay has changed to reflect new instrumentation/methodology. Specimen Anatomical Collection Method Collection Time Receive d Time (Source) Location / / Volume Laterality Blood specimen 10/18/2014 10:22 5 (specimen) AM HOSPICE AIDE 10:24 AM HOSPICE AIDE Leticia Armendariz MD LAB - BLOOD ORDERABLES Performing Organization Address City/[facility]/ZIP Code Phon e Number [facility] [address] [place] [address] documented in this encounter Visit Diagnoses Diagnosis Tremor - Primary Abnormal involuntary movements HTN (hypertension) Unspecified essential hypertension documented in this encounter Care Teams Geothermal Powerplant Mechanic Relationship Specialty Start Date End Date Maged Aggarwal MD PCP - General Internal Medicine 12/14/13 03/16/15 [address] [place], [place] [phone] Leticia Armendariz MD PCP - Assigned PCP 06/30/14 11/07/18 [facility] [address] [place] [address] Leticia Armendariz MD Assigned PCP 06/30/14 01/06/19 [facility] [address] [place] [address] documented as of this encounter
--- OUTSIDE RECORDS SUMMARY | 2022-06-25 13:54 | XMS_ITS | Encounter Summary ---
:1965 Author Organization [facility] Address [address] [place] [address] Care Team Providers Name Role Phone Maged Aggarwal MD Primary Care Provider Leticia Armendariz MD Unavailable Leticia Armendariz MD Unavailable Reason for Visit Reason Onset Date Comments Refill Request 09/06/2014 Zolpidem Encounter Details Date Type Department Care Team Description 09/06/2014 Refill [facility] [place] [facility] Maged Aggarwal, Ref ill Request Clinic Demarco BOURGEOIS (Zolpidem) [address] [place] [address] [place], [place] [phone] (Wo rk) [address] [phone] Social History Tobacco Use Types Packs/Day Years Used Date Smoking Tobacco: Every Day Cigarettes Smokeless Tobacco: Never Alcohol Use Standard Drinks/Week Comments No 0 (1 standard drink = 0.6 oz pure alcoho l) 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 Date Recorded 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 Last OV 06/27/14 Last Fill 08/06/14 #30 OW GLAZIER HELPER documented in this encounter Plan of Treatment Not on filedocumented as of this encounter Visit Diagnoses Diagnosis Insomnia - Primary Insomnia, unspecified documented in this encounter Care Teams Band Tier Relationship Specialty Start Date End Date Maged Aggarwal MD PCP - General Internal Medicine 12/14/13 03/16/15 [address] [place] [address] Leticia Armendariz MD PCP - Assigned PCP 06/30/14 [facility] [address] [place] [id number] Leticia Armendariz MD Assigned PCP 06/30/14 01/06/19 [facility] [address] [place] [phone] documented as of this encounter
--- OUTSIDE RECORDS SUMMARY | 2022-06-25 13:54 | XMS_ITS | Encounter Summary ---
:1965 Author Organization [facility] Address [address] [place] [address] Care Team Providers Name Role Phone Maged Aggarwal MD Primary Care Provider Leticia Armendariz MD Unavailable Leticia Armendariz MD Unavailable Reason for Visit Reason Onset Date Comments Refill Request 10/28/2014 Amlodipine, Losartan OV 08/2013 Refill letter sent Encounter Details Date Type Department Care Team Description 10/28/2014 Refill [facility] Diamandopoulos, L aura Refill Request Clinic Tiana Krishna MD (Amlodipine, Losartan [address] [facility]ART [facility] OV 08/24 13 Refill [facility] [address] [place] letter sent) ROCIO Mont[place] [phone] [address] [phone] [address] (Wo rk) Social History Tobacco Use Types Packs/Day Years Used Date Smoking Tobacco: Every Day Cigarettes Smokeless Tobacco: Never Alcohol Use Standard Drinks/Week Comments No 0 (1 standard drink = 0.6 oz pure alcoho l) 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 Date Recorded 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
--- OUTSIDE RECORDS SUMMARY | 2022-06-25 13:54 | XMS_ITS | Encounter Summary ---
:1965 Author Organization [facility] Address [address] [place] [address] Care Team Providers Name Role Phone Leticia Armendariz MD Primary Care Provider Leticia Armendariz MD Unavailable Leticia Armendariz MD Unavailable Reason for Visit Auth/Cert - Closed Specialty Diagnoses / Procedures Referred By Contact Refer red To Contact Gastroenterology Diagnoses Screening Endoscopy Procedures COLONOSCOPY [address] [place] [address] Phone: Fax: Referral ID Status Reason Start Date Expiration Date Visits Requ ested Visits Authorized [id number] Closed 1 1 Encounter Details Date Type Department Care Team Description 06/25/2015 Hospital Encounter [facility] [place] MD Varsha [address] [facility] [place] [address] [address] [place], [place] [address] (Wo rk) Social History Tobacco Use Types Packs/Day Years Used Date Smoking Tobacco: Every Day Cigarettes Smokeless Tobacco: Never Alcohol Use Standard Drinks/Week Comments No 0 (1 standard drink = 0.6 oz pure alcoho l) Sex Assigned at Date Recorded Male 08/13/2020 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 Bleeding from the rectum ?? [phone] [facility], [address] [place] [address], [place] [address]. All rights reserved. This information is not [...] Atrial mg) by mouth daily fibrillation (H) znsthipx-voeqplwav-zeditc 0 02/18/2015 08/02/2016 ortisone (CORTISPORIN) [id number] otic suspension zolpidem (AMBIEN) 5 MG Take [...] ONE LEVEL; Surgeon: Umang Sandoval MD; Location: [facility] Bleeding tendencies: No Relevant Family History: NONE [...] IMPRESSION: screening PLAN: colonoscopy Haven Sosa MD [facility] Office: [phone] documented in this encounter Plan of Treatment Not on filedocumented as of this encounter Procedures Procedure Name Priority Date/Time Associated Diagnosis Comme nts COLONOSCOPY Routine 06/25/2015 1:59 PM Results f or this CDT procedure are i n the results section . COLONOSCOPY 06/25/2015 1:59 PM Screening CDT documented in this encounter Results COLONOSCOPY (06/25/2015 1:59 PM CDT) [facility] Method Time Signature COLONOSCOPY [facility] RAD IOLOGY RESULTS Patient Name: Feng Perez ?Venita sanchez Date: 06/25/2015 1:59 PM ? Accou nt Number: [id number] Date of : 1965 ?Admit Type: Out [...] and ?oxygen saturations were monitored continuously. The ?[id number] was introduced through the anus and ?advanced [...] in 10 years for screening ?purposes. ? Joaquin Sosa M.D. Haven Sosa MD 06/25/2015 2:34 PM I was physically present for the entire viewing portion of t he exam. Number of Addenda: 0 Note Initiated On: 06/25/2015 1:59 PM MRN: ?[id number] Procedure Date: ? 06/25/2015 1:59:27 PM Scope [...] Diagnoses Not on filedocumented in this encounter Active and Recently Administered Medications Times are shown in CDT. PRN Medication Order 06/23/2015 06/24/2015 06/25/2015 fentaNYL (SUBLIMAZE) injection (CANCELED) 1407 (Given - Provider: Haven Sosa MD) PRN, Starting 06/25/15 at 1407, Intra-procedure midazolam (VERSED) injection (CANCELED) 1407 (Given - Provider: Haven Sosa MD) PRN, Starting 06/25/15 at 1407, Intra-procedure sodium chloride (PF) 0.9% PF flush 3 mL (CANCELED) 1407 (Given - Provider: Haven Sosa MD) 3 mL, Intravenous, EVERY 1 HOUR PRN, miki e flush, post meds or blood draw, Starting 06/25/15 at 1343, for peripheral IV flush post IV meds, Pre-procedure documented in this encounter Care Teams Retrimmer Relationship Specialty Start Date End Date Leticia Armendariz MD PCP - General Internal Medicine 03/17/15 Leticia Armendariz MD PCP - Assigned PCP 06/30/14 [facility] [address] [place] [address] Leticia Armendariz MD Assigned PCP 06/30/14 01/06/19 [facility] [address] [place] [address] documented as of this encounter
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
--- OUTSIDE RECORDS SUMMARY | 2022-06-25 13:54 | XMS_ITS | Encounter Summary ---
:1965 Author Organization [place] Address [address] [place] [address] Care Team Providers Name Role Phone Leticia Armendariz MD Primary Care Provider Leticia Armendariz MD Unavailable Leticia Armendariz MD Unavailable Reason for Visit Reason Onset Date Comments Refill Request 07/22/2015 Losartan,Amlodipine Encounter Details Date Type Department Care Team Description 07/22/2015 Refill [facility] Leticia Armendariz Refill Request Demarco Bender MD (Losartan,Amlodipine) [address] [place] [address] [phone] [id number] Social History Tobacco Use Types Packs/Day Years Used Date Smoking Tobacco: Every Day Cigarettes Smokeless Tobacco: Never Alcohol Use Standard Drinks/Week Comments No 0 (1 standard drink = 0.6 oz pure alcoho l) Sex Assigned at Date Recorded 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 RGLASS PRODUCT TESTER Telephone Encounter - Karen Templeton - 07/22/2015 11:02 AM CST Losartan Potassium 50MG Last Written Prescription Date: 01/10/15 Last Fill Quantity: 90, # refills: 1 Last Office Visit with [facility] primary care provider: 06/17/15 POTASSIUM Date Value Ref Range Status 01/10/2015 4.3 3.4 - 5.3 mmol/L Final CREATININE Date Value Ref Range Status 01/10/2015 1.21 0.66 - 1.25 mg/dL Final BP Readings from Last 3 Encounters: 06/25/15 112/74 06/17/15 130/80 05/14/15 129/78 Amlodipine 5MG Last Written Prescription Date: 01/10/15 Last Fill Quantity: 90, # refills: 1 Last Office Visit with [facility] primary care provider: 06/17/15 Future Office Visit: BP Readings from Last 3 Encounters: 06/25/15 112/74 06/17/15 130/80 05/14/15 129/78 RGLASS PRODUCT TESTER documented in this encounter Plan of Treatment Not on filedocumented as of this encounter Visit Diagnoses Diagnosis Atrial fibrillation (H) - Primary Atrial fibrillation documented in this encounter Care Teams Manager Purchasing Relationship Specialty Start Date End Date Leticia Armendariz MD PCP - General Internal Medicine 03/17/15 Leticia Armendariz MD PCP - Assigned PCP 06/30/14 11/07/[address] [address] Leticia Armendariz MD Assigned PCP 06/30/14 01/06/19 [facility] [address] [address] documented as of this encounter
--- OUTSIDE RECORDS SUMMARY | 2022-06-25 13:54 | XMS_ITS | Encounter Summary ---
:1965 Author Organization [place] Address [address] [place] [address] Care Team Providers Name Role Phone Leticia Armendariz MD Primary Care Provider Leticia Armendariz MD Unavailable Leticia Armendariz MD Unavailable Reason for Visit Reason Onset Date Comments ER F/U 10/27/2015 Chest pain Encounter Details Date Type Department Care Team Description 10/27/2015 Telephone [facility] Leticia Armendariz ER F/U (Chest pain) Demarco Bender MD [address] [place] [address] [place], [place] [id number] (Wo rk) Social History Tobacco Use Types Packs/Day Years Used Date Smoking Tobacco: Every Day Cigarettes Smokeless Tobacco: Never Alcohol Use Standard Drinks/Week Comments No 0 (1 standard drink = 0.6 oz pure alcoho l) Sex Assigned at Date Recorded 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 I am calling to follow up and see how things are going for you after your recent emergency visit. Tell me how you are doing now that you are home? Doing better, but still having some chest tightness and reflux symptoms Discharge Instructions Let's review your discharge instructions. What is/are the follow-up recommendations? Pt. Response: stress test next week. Follow up with PCP Has an appointment with your primary care provider been scheduled? Stress echo scheduled for , follow up scheduled with Dr. Armendariz on 11/04/15. Medications Tell me what changed about your medicines when you discharged? No changes What questions do you have about your medications? None Call Summary What questions or concerns do you have about your recent visit and your follow- up care? none If you have questions or things don't continue to improve, we encourage you contact us through the main clinic number (give number). Even if the clinic is not open, triage nurses are available 28/03 tohelp you. We would like you to know that our clinic has extended hours (provide information). We also have urgent care (provide details on closest location and hours/contact info) Thank you for your time and take care! ITY SALES AND SERVICE MANAGER Telephone Encounter - Karen Templeton - 10/27/2015 10:07 AM CST ED F/U Date: 10/26/15 Diagnosis: Chest pain unspecified Is patient active in care coordination? No Number of ED visits in past 12 months: 1 ITY SALES AND SERVICE MANAGER documented in this encounter Plan of Treatment Not on filedocumented as of this encounter Visit Diagnoses Not on filedocumented in this encounter Care Teams Quilt Maker Relationship Specialty Start Date End Date Leticia Armendariz MD PCP - General Internal Medicine 03/17/15 Leticia Armendariz MD PCP - Assigned PCP 06/30/14 11/07/[address] [address] Leticia Armendariz MD Assigned PCP 06/30/14 01/06/[address] [address] documented as of this encounter
--- OUTSIDE RECORDS SUMMARY | 2022-06-25 13:54 | XMS_ITS | Encounter Summary ---
:1965 Author Organization [place] Address [address] [place] [address] Care Team Providers Name Role Phone Leticia Armendariz MD Primary Care Provider Leticia Armendariz MD Unavailable Leticia Armendariz MD Unavailable Reason for Visit Reason Onset Date Comments Refill Request 04/14/2015 Chantix Encounter Details Date Type Department Care Team Description 04/14/2015 Refill [facility] Leticia Armendariz Refill Request (Chantix) Demarco Bender MD [facility] [place] [address] [phone] Social History Tobacco Use Types Packs/Day Years Used Date Smoking Tobacco: Every Day Cigarettes Smokeless Tobacco: Never Alcohol Use Standard Drinks/Week Comments No 0 (1 standard drink = 0.6 oz pure alcoho l) Sex Assigned at Date Recorded 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 One refill within 1 year. If off medication entirely needs provider visit. Telephone Encounter - Megha Tarango - 04/14/2015 11:14 AM CDT Chantix Last Written Prescription Date: 01/10/15 Last Fill Quantity: 56, # refills: 2 Last Office Visit with [facility] primary care provider: 01/10/15 BP Readings from Last 3 Encounters: 01/10/15 112/74 10/18/14 122/84 08/14/14 127/75 documented in this encounter Plan of Treatment Not on filedocumented as of this encounter Visit Diagnoses Diagnosis Tobacco use disorder - Primary documented in this encounter Care Teams Lace Roller Operator Relationship Specialty Start Date End Date Leticia Armendariz MD PCP - General Internal Medicine 03/17/15 Leticia Armendariz MD PCP - Assigned PCP 06/30/14 11/07/18 [facility] [address] [address] Leticia Armendariz MD Assigned PCP 06/30/14 01/06/19 [facility] [address] [address] documented as of this encounter
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
--- OUTSIDE RECORDS SUMMARY | 2022-06-25 13:54 | XMS_ITS | Encounter Summary ---
:1965 Author Organization [place] Address [address] [place] [address] Care Team Providers Name Role Phone Leticia Armendariz MD Primary Care Provider Leticia Armendariz MD Unavailable Leticia Armendariz MD Unavailable Reason for Visit (Routine) - Closed Specialty Diagnoses / Procedures Referred By Contact Refer red To Contact Radiology / Diagnoses [facility] order..sb Gabby..read and call Rh Ultrasound [facility] Radiology. Procedures US TESTICULAR AND SCROTUM [address] [address] [facility] [address] [place] [address] Phone: Fax: Referral ID Status Reason Start Date Expiration Date Visits Requ ested Visits Authorized [id number] Closed 06/17/2015 06/16/2016 1 1 Encounter Details Date Type Department Care Team Description 06/17/2015 Hospital Encounter [facility] Leticia Armenadriz esticular pain 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 encounter Medications at Time of Discharge Medication Sig Dispensed Refills Start Date End Date amLODIPine (NORVASC) 5 MG Take 1 tablet (5 90 tablet 1 04/201507/22/2015 tabletIndications: Atrial mg) by mouth fibrillation (H) daily levofloxacin (LEVAQUIN) 500 Take 1 tablet 10 tablet 0 06/1710/26/2015 MG tabletIndications: (500 mg) by mouth Epididymitis, right daily losartan (COZAAR) 50 MG Take 1 tablet (50 90 tablet 1 01/1007/22/2015 tabletIndications: Atrial mg) by mouth fibrillation (H) daily methylPREDNISolone (MEDROL 0 5 06/25/2015 DOSEPAK) 4 MG tablet ugltqxoi-opyjmavhh-sulpobvdx 0 015 08/02/2016 isone (CORTISPORIN) [id number] otic suspension varenicline (CHANTIX) 1 MG Take 1 tablet (1 56 tablet 2 08/201506/20/2015 tabletIndications: Tobacco mg) by mouth 2 use disorder times daily zolpidem (AMBIEN) 5 MG Take 1 tablet (5 30 tablet 5 015 09/19/2015 tabletIndications: Insomnia mg) by mouth nightly as needed for sleep documented as of this encounter Plan of Treatment Not on filedocumented as of this encounter Procedures Procedure Name Priority Date/Time Associated Comments Diagnosis US TESTICULAR AND STAT 06/17/2015 3:17 PM Testicular pain R esults for this SCROTUM WITH DOPPLER CDT procedu re are in LIMITED the results section. documented in this encounter Results US Testicular & Scrotum w Doppler Ltd (06/17/2015 3:17 PM CDT) Anatomical Region [...] underlying epididymi tis. Findings called to Dr. Armendariz by the ct mri technologist at the time of the exam. JEREMIAS ARTHUR MD Narrative 06/17/2015 3:53 PM CDT ULTRASOUND [...] or hydroceles are evident. Procedure Note Jeremias Arthur MD - 06/17/2015Form atting of this note might be different from the original. ULTRASOUND TESTICULAR AND SCROTUM WITH D OPPLER LIMITED June 17, 2015 3:17 PM HISTORY: [...] underlying epididymi tis. Findings called to Dr. Armendariz by the ct mri technologist at the time of the exam. JEREMIAS ARTHUR MD Leticia Armendariz MD IMG US ORDERABLES documented in this encounter Visit Diagnoses Diagnosis Testicular pain Unspecified disorder of male genital org ans documented in this encounter Care Teams Creative Resource Manager Relationship Specialty Start Date End Date Leticia Armendariz MD PCP - General Internal Medicine 03/17/15 Leticia Armendariz MD PCP - Assigned PCP 06/30/14 11/07/[address] [address] Leticia Armendariz MD Assigned PCP 06/30/14 01/06/19 [facility] [address] [address] documented as of this encounter
--- OUTSIDE RECORDS SUMMARY | 2022-06-25 13:55 | XMS_ITS | Encounter Summary ---
:1965 Author Organization [place] Address [address] [place] [address] Care Team Providers Name Role Phone Maged Aggarwal MD Primary Care Provider Leticia Armendariz MD Unavailable Leticia Armendariz MD Unavailable Encounter Details Date Type Department Care Team Description 07/01/2014 Radiant Appointment [facility], Orthopedic MD [facility] [address] [address] [place] [address] [place], [place] (Work) [address] Social History Tobacco Use Types Packs/Day Years Used Date Smoking Tobacco: Every Day Cigarettes Smokeless Tobacco: Never Alcohol Use Standard Drinks/Week Comments No 0 (1 standard drink = 0.6 oz pure alcoho l) Sex Assigned at Date Recorded 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 documented in this encounter Results XR Lumbar Spine 2/3 Views (07/01/2014 11:16 AM CDT) Anatomical Region Laterality Modality T-spine, L-spine, Abdomen/Pelvis Compute d Radiography Specimen (Source) Anatomical Location Collection Method / Collectio n Time Received Time / Laterality Volume Impressions 07/01/2014 1:38 PM CDT IMPRESSION: Mild anterior degenerative spurring in the mid and upper lumbar spine. Vertebral body heights, sa gittal alignment, and disc heights appear to be relatively well-pre served. Mild lumbar curvature apex to the right at L4. ANT SO MD Narrative 07/01/2014 1:38 PM CDT LUMBAR SPINE TWO TO THREE VIEWS 07/01/2014, 11:16 AM HISTORY: Backache, unspecified. Procedure Note Crystal So MD - 07/01/2014Formatt ing of this note might be different from the original. LUMBAR SPINE TWO TO THREE VIEWS 07/01/20 14, 11:16 AM HISTORY: Backache, unspecified. IMPRESSION IMPRESSION: Mild anterior degenerative s purring in the mid and upper lumbar spine. Vertebral body heights, sa gittal alignment, and disc heights appear to be relatively well-pre served. Mild lumbar curvature apex to the right at L4. ANT SO MD Simon Jauregui MD IMG DIAGNOSTIC IMAGING ORDER WHITNEY documented in this encounter Visit Diagnoses Diagnosis Backache, unspecified documented in this encounter Care Teams Calculating Machine Operator Relationship Specialty Start Date End Date Maged Aggarwal MD PCP - General Internal Medicine 12/14/13 03/16/15 [address] [place] [address] Leticia Armendariz MD PCP - Assigned PCP 06/30/14 11/07/18 [facility] [address] [place] [address] Leticia Armendariz MD Assigned PCP 06/30/14 01/06/19 [facility] [address] [place] [address] documented as of this encounter
--- OUTSIDE RECORDS SUMMARY | 2022-06-25 13:55 | XMS_ITS | Encounter Summary ---
:1965 Author Organization [facility] Address [address] [place] [address] Care Team Providers Name Role Phone Maged Aggarwal MD Primary Care Provider Leticia Armendariz MD Unavailable Leticia Armendariz MD Unavailable Reason for Visit Reason Comments Back Pain Encounter Details Date Type Department Care Team Description 07/01/2014 Office Visit [facility] Jauregui Backache , unspecified (Primary Dx); Orthopedic MD Ant Lumbar disc herniation with radiculopath y [facility] [address] [address], [place] [address] [facility], [address] [address] [address] [place], [place] (Work) [address] Social History Tobacco Use Types Packs/Day Years Used Date Smoking Tobacco: Every Day Cigarettes Smokeless Tobacco: Never Alcohol Use Standard Drinks/Week Comments No 0 (1 standard drink = 0.6 oz pure alcoho l) Sex Assigned at Date Recorded 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 Backache, unspecified 2. Lumbar disc herniation with radiculopathy [facility] will call you to set up MRI of the low back Follow up 1-2 days after MRI to discuss results (sooner if needed; call direct clinic number [[phone]] at any time with questions or concerns) To better serve our patients, [facility] with be moving to the new [facility] [place] on July 22, 2014. Our new address will be: [address] [facility], [place] [address] Our phone number will continue to be [phone]. documented in this encounter Progress Notes Simon Jauregui MD - 07/01/2014 11:03 AM CDT [facility] Visit s Jul 01, 2014 ASSESSMENT: 1. Backache, unspecified 2. Lumbar disc herniation with radiculopathy PLAN: 6 weeks of progressive low back and right leg pain after bending forward. Symptoms, examination and radiographic findings are consistent with acute lumbar disc herniation with radiculopathy. There are no red flag or concerning neurologic findings. However, despite healthcare consultant and time his pain is worsening and he is having paresthesias that are extending further down the leg now past the knee. Discussed etiology and natural history of condition, as well as the various treatment options including activity modification, use of acetaminophen and ice for symptomatic relief, physical therapy, injection therapy and surgery. With progressive neurologic findings, MRI was ordered today for further evaluation and to help guide treatment course. He will follow up 1-2 days after that study to discuss the results. He was instructed to contact our office sooner should the condition evolve or worsen, orshould any new/progressive neurologic symptoms develop. Subjective: Feng Perez is a 49 year old male who is seen in consultation at the request of Dr. Armendariz for evaluation of low back pain. Symptoms began about 6 week(s) ago, and have been worsening since that time. Patient describes injury as bending down to tie his shoes and felt a sudden pop in the low back. He reports aching and burning back pain that is located on the right lower lumbar region; radiation Present through the right buttock, right lateral/ posterior thigh and now extending as paresthesias past the knee in the lateral lower leg. Symptoms are generally worse with sitting more than 15 mins; no ameliorating factors. Other treatment so far has consisted of healthcare consultant with minimal relief. Associated symptoms: denies any bowel/bladder dysfunction or saddle anesthesia; distal numbness/tingling/paresthesias as noted,denies leg weakness. He has had history of related problems, intermittent flares of LBP for the last30 years after a major fall/injury, but no pain similar to this. He also recently had a cervical fusion. Patient's past medical, surgical, social and family histories are reviewed today. Medical history includes: Past Medical History Diagnosis Date ??? Hypertension ??? Arrhythmia afib ablation ??? Hepatitis 15 yrs ago from bad food Review of Systems: Constitutional:NEGATIVE for fever, chills, change in weight Skin: NEGATIVE for worrisome rashes, moles or lesions Neuro: see HPI MSK: see HPI Objective: Ht 5' 10 (1.778 m) Wt 201 lb (91.173 kg) BMI 28.84 kg/m2 General: healthy, alert and no distress Skin: no suspicious lesions or rashes Psych: mentation appears normal and affect normal/bright Gait: normal Neuro: DTRs 2+/symmetric patella/achilles. Altered light touch sensation lateral right lower leg.. Motor strength as noted below. MSK: THORACIC/LUMBAR SPINE Inspection: No redness, swelling, overlying skin change, or gross deformity/asymmetry. 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 Palpation: Minimal tenderness about the lumbar spinous processes, left para lumbar muscles and right para lumbar muscles No tenderness over the thoracic spinous processes, left parathoracic muscles, right parathoracic muscles, left SI joint or right SI joint. Range of Motion: Lumbar flexion limited substantially by pain Lumbar extension limited slightly by pain Right side bend limited slightly by pain Left side bend limited slightly by pain Right rotation limited substantially by pain Left rotation limited slightly by pain Strength: Full strength throughout hips/quads/hamstrings, no foot drop present, able to heel walk, able to toe walk Special Tests: Positive: straight leg raise (right), slump test (right) Negative: ROSIBEL (bilateral) Imaging: Lumbar spine x-rays (2 views, AP/lateral) were ordered and interpreted in the office today. IMPRESSION: Mild anterior degenerative spurring in the mid and upper lumbar spine. Vertebral body heights, sagittal alignment, and disc heights appear to be relatively well-preserved. Mild lumbar curvature apex to the right at L4. Assessment and plan located at the top of the visit note. Simon Jauregui MD, [facility] documented in this encounter Nursing Notes Danita García - 07/01/2014 11:05 AM CDT Chief Complaint Patient presents with ??? Back Pain Initial Ht 5' 10 (1.778 m) Wt 201 lb (91.173 kg) BMI 28.84 kg/m2 Estimated body mass index is 28.84 kg/(m^2) as calculated from the following: Height as of this encounter: 5' 10 (1.778 m). Weight as of this encounter: 201 lb (91.173 kg). BP completed using cuff size: large Danita García ATC documented in this encounter Plan of Treatment Not on filedocumented as of this encounter Visit Diagnoses Diagnosis Backache, unspecified - Primary Lumbar disc herniation with radiculopath y Displacement of lumbar intervertebral di sc without myelopathy documented in this encounter Care Teams Bologna Lacer Relationship Specialty Start Date End Date Maged Aggarwal MD PCP - General Internal Medicine 12/14/13 03/16/[place] [address] Leticia Armendariz MD PCP - Assigned PCP 06/30/14 11/07/[address] [address] Leticia Armendariz MD Assigned PCP 06/30/14 01/06/[address] [address] documented as of this encounter
--- OUTSIDE RECORDS SUMMARY | 2022-06-25 13:55 | XMS_ITS | Encounter Summary ---
:1965 Author Organization [facility] Address [facility] [place] [address] Care Team Providers Name Role Phone Maged Aggarwal MD Primary Care Provider Reason for Visit Reason Comments Neurologic Problem Return to work Encounter Details Date Type Department Care Team Description 04/30/2014 Office Visit [facility] Liya Felix APRN [facility] [address] [place] [place], [place] [id number] S/P cervical spinal Neurosurgery Umang Sandoval MD [facility] [address] [place] [address] fusion (Primary Dx) 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 Last Filed Vital Signs Vital Sign Reading Time Taken Comments Blood Pressure 132/79 04/30/2014 10:20 AM CDT Pulse 86 04/30/2014 10:20 AM CDT Temperature - - Respiratory Rate - - Oxygen Saturation - - Inhaled Oxygen Concentration - - Weight - - Height - - Body Mass Index - - documented in this encounter Progress Notes Umang Sandoval MD - 04/30/2014 10:49 AM CDT Doing well following C5-6 ACDF April 15, 2014 No pain Wants to return to work and does now heavy lifting Incision healing well Ok to return to work with no lifting of more than 50 lbs Leeanne Victor - 04/30/2014 10:21 AM CDT Feng Perez is a 49 year old male who presents for: Chief Complaint Patient presents with ??? Neurologic Problem Return to work Initial Vitals: BP 132/79 Pulse 86 Estimated body mass index is 28.75 kg/(m^2) as calculated from the following: Height as of 03/19/14: 5' 10 (1.778 m). Weight as of 04/05/14: 200 lb 6.4 oz (90.901 kg).. There is no height or weight on file to calculate BSA. BP completed using cuff size: regular Data Unavailable Do you feel safe in your environment? Yes Do you need any refills today? 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
--- OUTSIDE RECORDS SUMMARY | 2022-06-25 13:55 | XMS_ITS | Encounter Summary ---
:1965 Author Organization [facility] Address [address] [facility] [place] [address] Care Team Providers Name Role Phone Maged Aggarwal MD Primary Care Provider Reason for Visit Auth/Cert - Closed Specialty Diagnoses / Procedures Referred By Contact Refer red To Contact Surgery Diagnoses LEFT C5-6 HERNIATED DISC WITH RADICULOPATHY; LEFT UPPER EXTREMITY WEAKNESS Sh Periop Services Procedures COMBINED DISCECTOMY, FUSION CERVICAL ANTERIOR ONE LEVEL [address] [place] [address] Phone: Referral ID Status Reason Start Date Expiration Date Visits Requ ested Visits Authorized [id number] Closed 1 1 Encounter Details Date Type Department Care Team Description 04/15/2014 Anesthesia Event M [facility] Dwight Sutton MD [facility] XX RESIGNED XX Services [place] [address] [place] [address] Anesthesia Record Procedure Summary Procedure Name Responsible Anesthesia Start Anesthesia Stop Anesthesiologist Time Time C5-6 ANTERIOR Dwight Sutton MD 04/15/14 1051 04/15/14 1256 DISCECTOMY AND FUSION (Spine) Events Date Time Event Comment 04/15/2014 0914 1051 An Start 1055 An Start Data 1059 An Induction 1101 An Intubation 1101 AN START SEVO 1132 AN INCISION 1141 MD Present 1148 Quick Note Oximeter probe c hanged to ear 1229 AN END SEVO 1236 MD Present 1237 An Emergence 1244 AN Extubation 1247 an stop data 1256 An Stop Electronically s igned by Marixa Lockhart on April 15, 2014 12:56 P M Name Total dexamethasone 4mg/mL 4 mg ePHEDrine 5 mg/mL 5 mg fentanyl 50mcg/mL 250 mcg glycopyrrolate 0.2mg/mL 0.4 mg lidocaine 2% 100 mg midazolam 1mg/mL 2 mg neostigmine 1mg/mL 3 mg ondansetron 2mg/mL 4 mg propofol 10mg/mL 200 mg rocuronium 10mg/mL 50 mg ceFAZolin (ANCEF) IVPB 2 g (pre-mix) 2 g lactated ringers infusion 1,700 mL Agents Name O2 N2O Air Exp Sevoflurane Ins Sevoflurane Blood No blood administrations on file. Lines, Drains, and Airways Type Details Placement Removal Incision/Surgical Site 04/15/14; 1233; Neck 04/15/14 1233 by Chela Coppola RN Peripheral IV 06/26/13; 0950; 20 G; 06/26/13 0950 by 10/26/15 1342 by Left; Lower forearm BryanelNarcisa brewer True, Me phu Shaffer RN RN Arterial Sheath 06/26/13; 1026; 4 Fr; 06/26/13 1026 by 02/05/20 1005 by Femoral; Right; Marixa Zepeda Olson, Lynn Biring; 02/05/20; 1005 RN Peripheral IV 04/15/14; 0926; 18 G; 04/15/14 0926 by 10/26/15 1342 by Left; Hand; Natali Arrington RN True, Meliss a M, RN Chlorhexidine; Injectable; Tolerated well documented in this encounter Social History Tobacco Use Types Packs/Day Years Used Date Smoking Tobacco: Every Day Cigarettes Smokeless Tobacco: Never Alcohol Use Standard Drinks/Week Comments No 0 (1 standard drink = 0.6 oz pure alcoho l) Sex Assigned at Date Recorded 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 Post Op Diagnosis Additional Comments:No value filed. Patient Condition Respiratory Function (RR / SpO2 / Airway Patency): Satisfactory Cardiac Function (HR / Rhythm / BP): Satisfactory Mental Status: Satisfactory Temperature: Satisfactory Pain Control: Satisfactory PONV: None Beta-Rolanda Therapy: None indicated Hydration Status: Satisfactory Last Vitals: Filed Vitals: 04/15/14 1340 04/15/14 1350 04/15/14 1400 BP: 117/69 117/74 128/68 Temp: Resp: 07 27 22 SpO2: 94% 93% 94% Additional Comments: Anesthesia Preprocedure Evaluation - Dwight Sutton MD - 04/15/2014 8:09 AM CDT Anesthesia Evaluation . Pt has had prior anesthetic. No history of anesthetic complications ROS/MED HX ENT/Pulmonary: (+)tobacco use (Current Taking Chantix), , . . (-) sleep apnea Neurologic: Comment: 1- Cervical radiculopathy / left arm weakness Cardiovascular: Comment: 1- Atrial Fibrillation / Status post cardioversion (+) hypertension . : . . . :. . METS/Exercise Tolerance: Hematologic: Musculoskeletal: GI/Hepatic: (+) GERD Asymptomatic on medication, Renal/Genitourinary: Endo: Psychiatric: Infectious Disease: Malignancy: Other: Physical Exam Normal systems: cardiovascular, pulmonary and dental Airway Mallampati: II TM distance: >3 FB Neck ROM: limited Comment: 1- Limited extension because of pain Dental (+) missing Cardiovascular Pulmonary Anesthesia Plan ASA Score: 2 . Plan for General and ETT - with Intravenous induction.Maintenance will be Inhalation. Routine analgesia and antiemetics to be used for post-operative care. Anesthetic plan, risks, benefits and alternatives discussed with: patient or claim service representative. Equipment:Videolaryngoscope History & Physical Review History and physical reviewed; no interval change. . documented in this encounter Miscellaneous Notes Anesthesia Care Transfer Note - Marixa Lockhart APRN CRNA - 04/15/2014 12:55 PM CDT Anesthesia Care Note Patient: Feng Perez Transferred to PACU Patient Vital Signs: Stable Airway: none Spont resps, awake, alert, 6 liters O2 FM, IV patent, monitors and alarms on, report to RN. Radha Lockhart CRNA 04/15/2014 documented in this encounter Plan of Treatment Not on filedocumented as of this encounter Visit Diagnoses Not on filedocumented in this encounter Administered Medications Inactive Administered Medications - up to 3 most recent administrations Medication Order MAR Action Action Date Dose Rate Site ceFAZolin (ANCEF) IVPB 2 g Given 04/15/2014 11:15 AM CDT 2 g (pre-mix) Routine, 2 g, Intravenous, PRE-OP/PRE-PROCEDURE, Starting on Tue04/15/14 at 0848, For 1 dose, Give first dose within 1 hour PRIOR to incision. If patient weight is greater than or equal to 120 kg change dose to 3 g., Indications: Perioperative Pharmacoprophylaxis, Pre-procedure dexamethasone (DECADRON) injection Given 04/15/2014 11:31 AM CDT 4 mg PRN, Administer over 1-4 Minutes, Starting on Tue04/15/14 at 1131, Anesthesia Intra-op ePHEDrine in 0.9% NaCl injection (dilute d) Given 04/15/2014 11:59 AM CDT 5 mg PRN, Starting on Tue04/15/14 at 1159, Anesthesia Intra-op fentaNYL (SUBLIMAZE) injection Given 04/15/2014 12:45 PM CDT 50 mcg PRN, moderate to severe pain, Starting on Tue04/15/14 at 1059, Anesthesia Intra-op Given 04/15/2014 11:35 AM CDT 50 mcg Given 04/15/2014 11:32 AM CDT 50 mcg glycopyrrolate (ROBINUL) injection Given 04/15/2014 12:33 PM CDT 0.4 mg PRN, Starting on Tue04/15/14 at 1233, Anesthesia Intra-op lactated ringers infusion New Bag 04/15/2014 11:56 AM CDT at 75-100 mL/hr, Intravenous, CONTINUOUS, UNLESS otherwise indicated., Pre-procedure, Starting on Tue04/15/14 at 0900, Until Tue04/15/14 at 1250 New Bag 04/15/2014 10:51 AM CDT lidocaine injection 2% (MDV) Given 04/15/2014 10:59 AM CDT 100 mg PRN, Starting on Tue04/15/14 at 1059, Anesthesia Intra-op midazolam (VERSED) injection Given 04/15/2014 10:51 AM CDT 2 mg PRN, anxiety, Starting on Tue04/15/14 at 1051, Anesthesia Intra-op neostigmine (PROSTIGMINE) injection Given 04/15/2014 12:33 PM CDT 3 mg Intravenous, PRN, Starting on Tue04/15/14 at 1233, Anesthesia Intra-op ondansetron (ZOFRAN) injection Given 04/15/2014 12:19 PM CDT 4 mg PRN, nausea, vomiting, Administer over 2-5 Minutes, Starting on Tue04/15/14 at 1219, Anesthesia Intra-op propofol (DIPRIVAN) injection 10 mg/mL v ial Given 04/15/2014 10:59 AM CDT 200 mg PRN, Starting on Tue04/15/14 at 1059, Anesthesia Intra-op rocuronium (ZEMURON) injection Given 04/15/2014 10:59 AM CDT 50 mg PRN, Starting on Tue04/15/14 at 1059, Anesthesia Intra-op documented in this encounter Care Teams Water Quality Analyst Relationship Specialty Start Date End Date Maged Aggarwal MD PCP - General Internal Medicine 12/14/13 03/16/[address] [place] [address] documented as of this encounter
--- OUTSIDE RECORDS SUMMARY | 2022-06-25 13:55 | XMS_ITS | Encounter Summary ---
:1965 Author Organization [facility] Address [address] [place] [address] Care Team Providers Name Role Phone Maged Aggarwal MD Primary Care Provider Reason for Visit Reason Onset Date Comments ER F/U 04/17/2014 Herniated disc,spina l fusion Encounter Details Date Type Department Care Team Description 04/17/2014 Telephone [facility] Maged Aggarwal, ER F/U (Hern[facility] [place] disc,spinal fusion) [address] [place] [address] [place], [place] [phone] (Wo rk) [address] [phone] Social History Tobacco Use Types Packs/Day Years Used Date Smoking Tobacco: Every Day Cigarettes Smokeless Tobacco: Never Alcohol Use Standard Drinks/Week Comments No 0 (1 standard drink = 0.6 oz pure alcoho l) Sex Assigned at Date Recorded 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 He was told to follow up with in 2 weeks. No notes on PCP follow up. documented in this encounter Plan of Treatment Not on filedocumented as of this encounter Visit Diagnoses Not on filedocumented in this encounter Care Teams Hand Stamper Relationship Specialty Start Date End Date Maged Aggarwal MD PCP - General Internal Medicine 12/14/13 03/16/15 [address] [place] [address] documented as of this encounter
--- OUTSIDE RECORDS SUMMARY | 2022-06-25 13:55 | XMS_ITS | Encounter Summary ---
:1965 Author Organization [facility] Address [address] [place] [address] Care Team Providers Name Role Phone Maged Aggarwal MD Primary Care Provider Reason for Visit Auth/Cert - Closed Specialty Diagnoses / Procedures Referred By Contact Refer red To Contact Surgery Diagnoses LEFT C5-6 HERNIATED DISC WITH RADICULOPATHY; LEFT UPPER EXTREMITY WEAKNESS Sh Periop Services Procedures COMBINED DISCECTOMY, FUSION CERVICAL ANTERIOR ONE LEVEL [address] [place] [address] Phone: Referral ID Status Reason Start Date Expiration Date Visits Requ ested Visits Authorized [id number] Closed 1 1 Encounter Details Date Type Department Care Team Description 04/15/2014 Surgery [facility] Umang Sandoval C5-6 ANTERIOR [place] [facility] MD [facility] DISCECTOM[facility] FUSION Services [facility] [address] OR[address]ICS [address] [place] [address] [address] [place], [place] [address] (Wo rk) Surgery Details Date/Time Status Location OR Service Patient Case Case Traum a Class Class Type Case? 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 encounter Last Filed Vital Signs Vital Sign Reading Time Taken Comments Blood Pressure 123/85 04/15/2014 9:12 AM CDT Pulse - - Temperature 36.4 ??C (97.6 ??F) 04/15/2014 9:12 AM CDT Respiratory Rate 16 04/15/2014 9:12 AM CDT Oxygen Saturation 98% 04/15/2014 9:12 AM CDT Inhaled Oxygen Concentration - - Weight 88.9 kg (196 lb) 04/15/2014 9:12 AM CDT Height - - Body Mass Index 28.12 03/19/2014 9:27 AM CDT documented in this encounter Discharge Instructions Discharge InstructionsShoshana Muñoz RN - 04/16/2014 7:21 AM CDT [facility] [phone] Tuesday-Tuesday; 8am-4:00pm Care Instructions Following Spine Surgery In General: After you have had surgery on your spine, remember do not twist, or excessively flex or extend the area that you had surgery. These activities can prevent healing. Pain is normal and to be expected following surgery. Please call our office to schedule your appointment follow up appointment. Bowel Care: Many people have constipation (hard stools) after surgery. To help prevent constipation: Drink plenty of fluid (8-10 glasses/day); Eat more fiber, such as whole grain bread, bran cereal, and fruits andvegetables; Stay active by walking; Over the counter stool softener may also help. Medications: Spine surgery and pain management is unique to all patients. You will generally be given medicationsfor pain, muscle spasms or tightness, and for constipation during the immediate post op period. It is important that you use these as prescribed. Please remember to bring your pill bottles to all of your appointments. Avoid alcoholic beverages while taking narcotic pain medications. You can use ice to areas of pain as needed, 20 minutes at a time. Changing positions and walking will help loosen your muscles as well. Driving: No driving while on narcotic pain medications. It is state law not to drive while under the influence of a drug to a degree which renders you incapable of safely driving. The narcotic medication you will be taking after surgery falls under this category. If you have had a cervical fusion, the restricted movement from twisting the neck would prevent you from driving safely. Ask your provider at your first post op visit if it is ok to drive. Activity: After surgery, most people feel less pain than they have had in a long time. Walking and light activities will help you regain the use of your muscles. You are encouraged to walk: start with short walks 5-10 minutes at a time for 4-5 times per day and increase as tolerated. Stair climbing as tolerated, we recommend you use the railing. No lifting greater than 10 pounds: approximately equal to one gallon of milk. No twisting, bending in the area you have had surgery. No housework, vacuuming, laundry, leaf raking, lawn mowing, or snow removal. Wear your brace (if ordered) as directed. Sexual activity: we recommend you abstain from sexual intercourse activity for 1 month until you kwabena so without pain. Showers: If you have sutures or chad you may shower two days after surgery. It is ok to let water run overyour incision but do not touch or scrub on the incision. Pat dry immediately after showering. If there is a dressing in place, you may remove it 2 days after surgery. If you were closed with Peckham russo (glue), you may shower without covering the incision. No baths, hot tubs, or pool activity for at least 6 weeks. Nutrition: In general, your diet restrictions will not change with your surgery. You may need to eat small frequent meals initially until your appetite returns. Eat plenty of high fiber foods and drink plenty of fluids. If you do not have a fluid restriction from or prior to surgery, we recommend 6-8 (8oz) glasses of water per day. Other fluids are fine, but water is best. Nausea is not uncommon; it is a commonside effect to many pain medications. We recommend that you take the pain medications with food, if this does not improve your symptoms, please call us. Smoking: For proper healing it is required that you quit using all tobacco products. This includes smoking, chewing, nicotine gums, and nicotine patches. Call your Doctor if these occur: Drainage from your incision Increased pain, redness, or swelling Temperatures greater than 101.5 Increased leg pain or swelling Unrelieved headaches Go to the nearest Emergency Room if you experience: Chest pain, shortness of breath Neck swelling or swallowing problems documented in this encounter Medications at Time of Discharge Medication Sig Dispensed Refills Start Date End Date AMLODIPINE BESYLATE PO Take 5 mg by mouth 0 07/24/2014 At Bedtime HYDROcodone-acetaminophen Take 1-2 tablets by 50 tablet 0 0 04/16/2014 01/10/2015 (NORCO) 5-325 MG per mouth every 4 hours tabletIndications: as needed for 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 pain (pain) radiculopathy LOSARTAN POTASSIUM PO Take 50 mg by mouth 0 07/24/2014 At Bedtime methocarbamol (ROBAXIN) Take 1 tablet (750 40 [...] times daily documented as of this encounter Progress Notes Cyndee Haywood NP - 04/16/2014 7:04 AM CDT [facility] Neuro[facility] Progress Note 1 Day Post-Op Procedure(s) with comments: FUSION CERVICAL ANTERIOR ONE LEVEL - C5-6 ANTERIOR DISCECTOMY AND FUSION Interval history: Difficulty with pain control over night but reports he is doing very well this morning. Passing flatus. Pain well controlled. Vital signs: Blood pressure 137/79, temperature 98.1 ??F (36.7 ??C), temperature source Oral, resp. rate 16, weight 196 lb (88.905 kg), SpO2 97 %. Exam: Incision Covered Shoulder abduction: 5/5 bilaterally Biceps: 5/5 bilaterally Triceps: 5/5 bilaterally Wrist Extensor: 5/5 bilaterally Wrist Flexor: 5/5 bilaterally Intrinsics: 5/5 bilaterally Grasp:equal bilaterally Negative Restrepo's Sensation intact in upper extremities bilaterally Clonus: Negative bilaterally WBC 7.6 03/05/2014 RBC 5.51 03/05/2014 HGB 15.8 04/05/2014 HCT 49.7 03/05/2014 No components found with this name: mct MCV 90 03/05/2014 MCH 31.0 03/05/2014 MCHC 34.4 03/05/2014 RDW 13.8 03/05/2014 PLT 230 03/05/2014 Last Basic Metabolic Panel: NA 138 04/05/2014 POTASSIUM 4.2 04/15/2014 CHLORIDE 103 04/05/2014 CEFERINO 9.5 04/05/2014 CO2 28 04/05/2014 BUN 11 04/05/2014 BUN 6.0 09/17/2013 CR 1.19 04/05/2014 GLC 73 04/05/2014 No results found for this basename: INR Active Problems: S/P cervical spinal fusion Plan: Mobilize today discharge today Discharge instructions reviewed Referral to urologist for long history of urinary retention per the pts report. Liya Haywood CNP [facility] [place] [id number] Tel. [phone] Pager: [phone] Narcisa Buckley RN - 04/15/2014 3:16 PM CDT Family updated regarding patient's time in pacu. Waiting for OK to transfer to floor. Report given documented in this encounter H&P Notes Jeniffer Buckley - 04/09/2014 10:59 AM CDT This note is for the purpose of making the H & P performed in clinic within the last 30 days available in the hospital surgical encounter. Source Note - Leticia Armendariz MD - 04/05/2014 10:50 AM CDT [address] [address] Dept: [phone] PRE-OP EVALUATION: Today's date: 04/05/2014 Feng Perez (: 1965) presents for pre-operative evaluation assessment as requested by Dr. Sandoval. He requires evaluation and anesthesia risk assessment prior to undergoing surgery/procedure for treatment of cervical disc herniation . Proposed procedure: neck surgery Date of Surgery/ Procedure: 04/15/14 Time of Surgery/ Procedure: 8.2am Hospital/Surgical Facility: [facility] Fax number for surgical facility: [phone] Primary Physician: Maged Aggarwal Type of Anesthesia Anticipated: to be determined Patient has a Health Care Directive or Living Will: NO HPI: 1. NO - Do you have a history of heart attack, stroke, stent, bypass or surgery on an artery in the head, neck, heart or legs? 2. NO - Do you ever have any pain or discomfort in your chest? 3. NO - Have you ever had a severe pain across the front of your chest lasting for half an hour or more? 4. NO - Do you have a history of Congestive Heart Failure? 5. NO - Are you troubled by shortness of breath when: walking on the level/ up a slight hill/ at night? 6. NO - Does your chest ever sound wheezy or whistling? 7. NO - Do you currently have a cold, bronchitis or other respiratory infection? 8. NO - Have you had a cold, bronchitis or other respiratory infection within the last 2 weeks? 9. NO - Do you usually have a cough? 10. NO - Do you sometimes get pains in the calves of your legs when you walk? 11. NO - Do you or anyone in your family have previous history of blood clots? 12. NO - Do you or does anyone in your family have a serious bleeding problem such as prolonged bleeding following surgeries or cuts? 13. NO - Have you ever had problems with anemia or been told to take iron pills? 14. NO - Have you had any abnormal blood loss such as black, tarry or bloody stools, or abnormal vaginal bleeding? 15. NO - Have you ever had a blood transfusion? 16. NO - Have you or any of your relatives ever had problems with anesthesia? 17. NO - Do you have sleep apnea, excessive snoring or daytime drowsiness? 18. NO - Do you have any prosthetic heart valves? 19. NO - Do you have prosthetic joints? 20. NO - Is there any chance that you may be ? See problem list for active medical problems. Problems all longstanding and stable, except as noted/documented. See ROS for pertinent symptoms related to these conditions. . MEDICAL HISTORY: Patient Active Problem List Diagnosis Date Noted ??? Cervical disc herniation 03/08/2014 ??? HTN (hypertension) 08/24/2013 ??? Atrial fibrillation status post cardioversion 08/24/2013 ??? CARDIOVASCULAR SCREENING; LDL GOAL LESS THAN 130 08/24/2013 Past Medical History Diagnosis Date ??? Coronary artery disease afib converted ??? Hypertension History reviewed. No pertinent past surgical history. Current Outpatient Prescriptions Medication Sig Dispense Refill ??? HYDROcodone-acetaminophen (NORCO) 5-325 MG per tablet Take 1 tablet by mouth nightly as needed for moderate to severe pain 20 tablet 0 ??? predniSONE (DELTASONE) 20 MG tablet Take 3 tablets (60 mg) by mouth daily Take in the morning with food. 15 tablet 0 ? ? varenicline (CHANTIX STARTING MONTH BRANDY) 0.5 MG X 11 & 1 MG X 42 tablet Take 0.5 mg tab daily for 3 days, then 0.5 mg tab twice daily for 4 days, then 1 mg twice daily. 53 tablet 0 ??? zolpidem (AMBIEN) 5 MG tablet Take 1 tablet (5 mg) by mouth nightly as needed for sleep 30 tablet 5 ??? Omeprazole (PRILOSEC PO) Take 20 mg by mouth every evening ??? doxylamine (UNISOM) 25 MG TABS Take 25 mg by mouth nightly as needed OTC products: None, except as noted above No Known Allergies Latex Allergy: NO History Substance Use Topics ??? Smoking status: Current Every Day Smoker Types: Cigarettes Last Attempt to Quit: 06/26/2011 ??? Smokeless tobacco: Never Used ??? Alcohol Use: No History Drug Use No Comment: clean for 13 years- cocaine REVIEW OF SYSTEMS: C: NEGATIVE for fever, chills, change in weight E/M: NEGATIVE for ear, mouth and throat problems R: NEGATIVE for significant cough or SOB CV: NEGATIVE for chest pain, palpitations or peripheral edema EXAM: BP 102/76 Pulse 68 Temp(Src) 98.5 ??F (36.9 ??C) (Oral) Wt 200 lb 6.4 oz (90.901 kg) BMI 28.75 kg/m2 SpO2 97% GENERAL APPEARANCE: healthy, alert and no distress HENT: ear canals and TM's normal and nose and mouth without ulcers or lesions RESP: lungs clear to auscultation - no rales, rhonchi or wheezes CV: regular rate and rhythm, normal S1 S2, no S3 or S4 and no murmur, click or rub ABDOMEN: soft, nontender, no HSM or masses and bowel sounds normal NEURO: Normal strength and tone, sensory exam grossly normal, mentation intact and speech normal DIAGNOSTICS: Hg and Bmp IMPRESSION: Reason for surgery/procedure: C5-6 ANTERIOR DISCECTOMY AND FUSION Diagnosis/reason for consult: risk assessment The proposed surgical procedure is considered INTERMEDIATE risk. REVISED CARDIAC RISK INDEX The patient has the following serious cardiovascular risks for perioperative complications such as (DE, PE, VFib and 3?? AV Block): No serious cardiac risks INTERPRETATION: 0 risks: Class I (very low risk - 0.4% complication rate) The patient has the following additional risks for perioperative complications: No identified additional risks No diagnosis found. RECOMMENDATIONS: --Approval given to proceed with proposed procedure, without further diagnostic evaluation Signed Electronically by: Leticia Armendariz MD Copy of this evaluation report is provided to requesting physician. 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 The patient-specific goals include: Outcome: Improving Patient is ambulating in the bravo independently and tolerating well. CMS intact. Dressing CDI. Good pain control. Adequate urine output via ruvalcaba. Ruvalcaba dc'd at 0645 am. Due to void. Plan of Care - Marixa Ji RN - 04/15/2014 11:00 PM CDT Problem: IP GENERAL POC-ADULT,OB,BEHAVIORAL FVCPM Goal: Individualization/Patient-Specific Goal (Adult,OB,Behavioral The patient and/or their mortician supplies sales representative will achieve their patient-specific goals related to the plan of care. The patient-specific goals include: Outcome: Improving Pt a/ox4 with VS, runs tachy and CMS intact. C-spine dressing CDI. Swallow minimally painful, using ice and Cepacol lozenges, no change in vocal quality. Up in room with SBA. Unable to void and scannedfor 975, cath left in place, MD aware (see pt care orders). Pain controlled with lortab and robaxin.Tolerating regular diet with +BS and flatus.S/o at bedside over NOC. Plan for possible d/c home 04/16. Goal: Plan of Care Review (Adult,OB,Behavioral) The patient and/or their mortician supplies sales representative will communicate an understanding of their plan of care. Outcome: Improving Problem: Laminectomy, Laminotomy, Foraminotomy, Laminoplasty, Discectomy (Adult) Goal: Prevent/Manage Potential Problems Outcome: Improving Provider Notification - Marixa Ji RN - 04/15/2014 8:04 PM CDT Call to MD regarding ruvalcaba placement and pain. TPRB for flomax and lidocaine orders. Op Note - Umang Sandoval MD - 04/15/2014 12:39 PM CDT OPERATIVE NOTE Pre op Diagnosis: Left C5-6 herniated disk with left C6 radiculopathy Post op Diagnosis: Same Procedure: 1. C5-6 anterior cervical discectomy with arthrodesis and placement of a 10 mm Globus Colonial PEEK interbody graft with 2 cc of Globus Signify putty placed centrally 2. Placement of a Globus [place] anterior cervical plate with four 16 mm screws 3. Use of microscope and C-arm Surgeon: Umang Sandoval MD, FAANS Bottom Ironer: Liya Haywood CNP Indication for procedure: The patient is a 49 year old male that presented with left C6 radiculopathy. After reviewing the patient's imaging studies and examination, the decision was made to proceed with the above procedure. The patient understood the risks and benefits of surgery and wanted to proceed. Description of Procedure: The patient was seen in the pre op area and the procedure was discussed with the patient and family once again and all questions were answered. The consent was then signed andthe patient's neck was marked with a marker. The patient was then transferred to the operating suiteon a stretcher and received general endotracheal anesthesia. He was then placed on the operating table in the supine position with all pressure points padded. A small roll was placed under his shoulders for slight extension. Next, the C-arm fluoroscopy was brought in the operating room for localization of the C5-6 disk space. Next, the patient's neck was then prepped and draped in a normal sterile fashion and a transverse incision was marked along the C5-6 interspace. Next, local anesthesia was placed along the planned incision and a 10 blade scalpel was used to make the incision. The platysma muscle was then identified, undermined and incised with the Metzenbaum scissors. The Weitlaner retractors were used to retract the platysma muscle and the skin edges. A dissection plane was then made with both sharp and blunt dissection medical to the sternocliedomastoid muscle and the carotid artery down to the prevertebral fascia. The esophagus and trachea were then retracted laterally with the Cloward retractor and the prevertebral fascia was clean with Kitners. A spinal need was placed in the C5-6 interspace and verified with C-arm fluoroscopy. The longus coli muscles were then elevated with the bovie cautery and the Shadow line retractor was placed under the muscle. The C5-6 space was incised withthe bovie cautery and the disk was then removed with the Midas Jose Curz drill down to the posterior longitudinal ligament. The ligament was then penetrated with a microball hook and the Kerrison rongeur wasused to remove the posterior longitudinal ligament. All foramen were decompressed and the exiting nerve roots were decompressed and verified by with the microball hook. A 10 mm trial was placed in the C5-6 interspace and noted to be the appropriate size, therefore, a 10 mm PEEk interbody graft with Globus Signify putty placed centrally was placed in the C5-6 interspace under fluoroscopic guidance andnoted to have an appropriate fit. Next, the Globus [place] anterior cervical plate was secured from C5 to 6 with four 16 mm screws which were locked in placed with the hand held locking bit. The wound was then copiously irrigated and hemostasis was obtained with bipolar cautery, gelfoam and Surgiflo. The retractors were removed and there was no bleeding or injury to the carotid artery. The wound was irrigated once again and the platysma muscle was closed with 2-0 vicryl and the skin edges were closed with 3-0 vicryl and dermabond. The wound was dressed appropriately and the patient was then extubated and transferred to recovery. At the end of the case all counts were correct Complications: none Estimated blood loss: 10 ml IV Fluid: See Anesthesia The patient received Ancef preoperatively Umang Sandoval MD, MS, FAANS documented in this encounter Plan of Treatment Not on filedocumented as of this encounter Procedures Procedure Name Priority Date/Time Associated Comments Diagnosis GLUCOSE BY METER Routine 04/16/2014 6:10 AM Resul ts for this CDT procedure are i n the results section. GLUCOSE BY METER Routine 04/16/2014 6:10 AM Resul ts for this CDT procedure are i n the results section. XR SURGERY ÁLVARO Routine 04/15/2014 12:30 PM Resul ts for this FLUORO LESS THAN 5 CDT procedure are in MIN W STILLS the results section. XR CROSSTABLE Routine 04/15/2014 12:30 PM Results for this LATERAL CERVICAL CDT procedure a re in SPINE PORTABLE the results section. FUSION, SPINE, 04/15/2014 10:51 AM LEFT C5-6 HERNIATED CERVICAL, 1 LEVEL, CDT DISC WITH ANTERIOR APPROACH RADICULOPATHY; LEFT UPPER EXTREMITY WEAKNESS POTASSIUM STAT 04/15/2014 9:09 AM Results f or this CDT procedure are i n the results section. documented in this encounter Results (ABNORMAL) Glucose by meter (04/16/2014 6:10 AM CDT) P athologist Signature Glucose 128 (H) 60 - 99 POINT OF CARE mg/dL TEST, GLUCOSE Specimen Anatomical Collection Method Collection Time Receive d Time (Source) Location / / Volume Laterality 04/16/2014 6:10 AM 4 7:16 CDT AM CDT Umang Sandoval MD LAB - [facility] POCT Performing Organization Address City/[facility]/ZIP Code Phon e Number FV POINT OF CARE TEST, GLUCOSE POINT OF CARE TEST, GLUCOSE (ABNORMAL) Glucose by meter (04/16/2014 6:10 AM CDT) P athologist Signature Glucose 128 (H) 60 - 99 POINT OF CARE mg/dL TEST, GLUCOSE Specimen Anatomical Collection Method Collection Time Receive d Time (Source) Location / / Volume Laterality 04/16/2014 6:10 AM 4 6:20 CDT AM CDT Umang ROJAS - [facility] POCT Performing Organization Address City/[facility]/ZIP Code Phon e Number FV POINT OF CARE TEST, GLUCOSE POINT OF CARE TEST, GLUCOSE XR Surgery ÁLVARO L/T 5 Min Fluoro w Stills (04/15/2014 12:30 PM CDT) Specimen (Source) Anatomical Location Collection Method / Collectio n Time Received Time / Laterality Volume Narrative RADIANT - 04/17/2014 6:48 AM CDT This exam was marked as non-reportable because it will not be read by a radiologist or a [facility] non-radiologis t provider. Umang Sandoval MD [facility] ORD ERABLES Performing Organization Address City/State/ZIP Code Phon e Number RADIANT XR Cervical Spine Port 1 View (04/15/2014 12:30 PM CDT) Anatomical Region Laterality Modality C-spine, T-spine, Neck Computed Radiogra phy Specimen (Source) Anatomical Location Collection Method / Collectio n Time Received Time / Laterality Volume Impressions 04/16/2014 7:23 AM CDT IMPRESSION: 9 seconds of fluoroscopy was provided intraoperatively. Two radiographs demonstrate two separate stages of anterior spinal fusion from C5-C6. SARAH HERNANDEZ MD Narrative 04/16/2014 7:23 AM CDT INTRAOPERATIVE FLUOROSCOPY CERVICAL SPINE April 15, 2014 12:30 PM HISTORY: Anterior cervical diskectomy an d fusion C5-C6. COMPARISON: None. Procedure Note Sarah Hernandez MD - 04/16/2014Fo rmatting of this note might be different from the original. INTRAOPERATIVE FLUOROSCOPY CERVICAL SPIN E April 15, 2014 12:30 PM HISTORY: Anterior cervical diskectomy an d fusion C5-C6. COMPARISON: None. IMPRESSION IMPRESSION: 9 seconds of fluoroscopy was provided intraoperatively. Two radiographs demonstrate two separate stages of anterior spinal fusion from C5-C6. SARAH HERNANDEZ MD Umang Sandoval MD [facility] ORD ERABLES Potassium (04/15/2014 9:09 AM CDT) P athologist Signature Potassium 4.2 3.4 - 5.3 [place] mmol/L [facility] Specimen Anatomical Collection Method Collection Time Receive d Time (Source) Location / / Volume Laterality Blood specimen 04/15/2014 9:09 AM 014 9:28 (specimen) CDT AM CDT Robert Charles MD LAB - BLOOD ORDERABLES Performing Organization Address City/State/ZIP Code Phon e Number [facility] [address] [address] [facility] documented in this encounter Visit Diagnoses Not on filedocumented in this encounter Administered Medications Inactive Administered Medications - up to 3 most recent administrations Medication Order MAR Action Action Date Dose Rate Site bupivacaine 0.5 % - Given 04/15/2014 11:54 AM 1 mL Operative EPINEPHrine 1:200,000 CDT Sit e/Surgical Site injection PRN, Starting on Tue04/15/14 at 1154, Intra-procedure ceFAZolin 1000 mg + Given 04/15/2014 11:51 AM 1,000 mLs Operative gentamicin 120 mg + NaCl CDT Site/Surgical Site 0.9% 1000 mL Bottle PRN, Starting on Tue04/15/14 at 1151, Intra-procedure thrombin 5000 UNITS vial Given 04/15/2014 11:52 AM 5,000 Units Operativ e PRN, Starting on Tue CDT Site /Surgical Site 04/15/14 at 1152, Intra-procedure documented in this encounter Active and Recently Administered Medications Times are shown in CDT. Scheduled Medication Order 04/14/2014 04/15/2014 04/16/2014 amLODIPine (NORVASC) tablet 5 mg (CANCELED) 2105 (Given - Provider: Marixa Ji, BRITTON) 5 mg, Oral, AT BEDTIME, First dose on Tue04/15/14 at 2200 ceFAZolin (ANCEF) IVPB 2 g (pre-mix) (COMPLETED) 0931 (Handoff - Provider: Natali Arrington RN)1115 (Given - Provider: Marixa Lockhart APRN CRNA) 2 g, Intravenous, PRE-OP/PRE-PROCEDURE, Starting Tue04/15/14 at 0848, For 1 dose, Give first dose within 1 hour PRIOR to incision. If patient weight is greater than or equal to 120 kg change dose to 3 g ., Indications: Surgical Prophylaxis, Pre-procedure ceFAZolin (ANCEF) IVPB 2 g (pre-mix) (CANCELED) 1825 (New Bag - Provider: Marixa Ji, BRITTON) 0307 (New Bag - Provider: Tali Garcia, BRITTON) 2 g, Intravenous, EVERY 8 HOURS, First d ose on Tue04/15/14 at 1900, For 3 doses, Give first dose within 1 hour PRIOR to incision. If patient weight is greater than or equal to 120 kg change dose to 3 g., Indications: Surgical Prophylaxis lidocaine 2 % (Uro-Jet) jelly 10-20 mL (COMPLETED) 1755 (Given - Provider: Marixa Ji RN) 10-20 mL, Urethral, ONCE, Tue04/15/14 at 1800, For 1 dose, Into penis lidocaine 2 % (Uro-Jet) jelly 10-20 mL (COMPLETED) 2019 (Given - Provider: Marixa Ji RN) 10-20 mL, Urethral, ONCE, Tue04/15/14 at 2015, For 1 dose, Into penis losartan (COZAAR) tablet 50 mg (CANCELED) 2105 (Given - Provider: Marixa Ji RN) 50 mg, Oral, AT BEDTIME, First dose on Tue04/15/14 at 2200 senna-docusate (SENOKOT-S;PERICOLACE) 8.6-50 MG per tablet 1 -2 tablet 2019 (Given - Provider: Marixa Ji RN) 820 (Given - Provider: Shoshana Muñoz RN) 1-2 tablet, Oral, 2 TIMES DAILY, First d ose on Tue04/15/14 at 2100, Start with 1 tablet PO BID, If no bowel movement in 24 hours, increase to 2 tablets po BID. Hold for loose stools. Preferred agent for constipation related to opioids., Post-procedure tamsulosin (FLOMAX) capsule 0.4 mg 2105 (Given - Provider: Marixa iJ RN) 901 (Given - Provider: Shoshana garces RN) 0.4 mg, Oral, DAILY, First dose on Tue04/15/14 at 2015 varenicline (CHANTIX) tablet 1 mg (CANCELED) 2019 (Given - Provider: Marixa Ji RN) 09 (Given - Provider: Shoshana garces RN) 1 mg, Oral, 2 TIMES DAILY, First dose on Tue04/15/14 at 2100 Continuous Medication Order 04/14/2014 04/15/2014 04/16/2014 0.9 % sodium chloride with KCl 20 mEq/L IV infusion (CANCELE D) 161 (New Bag - Provider: Marixa Ji BRITTON) 0643 (New Bag - Provider: Tali Garcia RN)0735 (Stopped - Provider: Shoshana Muñoz RN) at 75 mL/hr, Intravenous, CONTINUOUS, Ch josé to saline lock when PO well tolerated., Post-procedure, Starting Tue04/15/14 at 1600, Until Tue04/16/14 at 0735 lactated ringers infusion (CANCELED) 105 1 (New Bag - Provider: Marixa Lockhart APRN FLEECER)1156 (New Bag - Provider: Marixa Lockhart APRN FLEECER)1254 (Anesthesia Volume Adjustment - Provider: Marixa Lockhart APRN CRNA) at 75-100 mL/hr, Intravenous, CONTINUOUS , UNLESS otherwise indicated., Pre- procedure, Starting Tue04/15/14 at 0900, Until Tue04/15/14 at 1250 lactated ringers infusion (CANCELED) 093 2 (New Bag - Provider: Natali Arrington RN) at 10 mL/hr, Intravenous, CONTINUOUS, Pr e-procedure, Starting Tue04/15/14 at 0900, Until Tue04/15/14 at 1250 lactated ringers infusion (CANCELED) 133 4 (New Bag - Provider: Narcisa Buckley RN) at 100 mL/hr, Intravenous, CONTINUOUS, C ontinue until IV catheter is weaned, PACU, Starting Tue04/15/14 at 1315, Until Tue04/15/14 at 1541 PRN Medication Order 04/14/2014 04/15/2014 04/16/2014 bupivacaine 0.5 % - EPINEPHrine 1:200,000 injection (CANCELE D) 1154 (Given - Provider: Umang Sandoval MD) PRN, Starting Tue04/15/14 at 1154, Intra-procedure ceFAZolin 1000 mg + gentamicin 120 mg + NaCl 0.9% 1000 mL Grey ttle (CANCELED) 1151 (Given - Provider: Umang Sandoval MD - Comment: prn use) PRN, Starting Tue04/15/14 at 1151, Intra-procedure fentaNYL (SUBLIMAZE) injection 25-50 mcg (CANCELED) 1357 (Given - Provider: Narcisa Buckley RN)1414 (Given - Provider: Narcisa Buckley RN) 25-50 mcg, Intravenous, EVERY 2 MIN PRN, Starting Tue04/15/14 at 1305, other, acute pain, MAX cumulative dose = 250 mcg. Use Fentanyl initially, as a short acting agent for acute pain control. If insuff icient, or a longer acting agent is need ed, begin Morphine or Hydromorphone if ordered., PACU HYDROcodone-acetaminophen (LORTAB) 7.5-325 MG/15ML leydi ution 10-15 mL (CANCELED) 1901 (Given - Provider: Marixa Ji RN)2304 (Given - Provider: Marixa Ji, BRITTON) 0307 (Given - Provider: Too Li)0902 (Given - Provider: Shoshana Muñoz RN) 10-15 mL, Oral, EVERY 4 HOURS PRN, moder ate to severe pain, Starting Tue04/15/14 at 1551, Hold while on WELL SITE DRILLING ENGINEER or with regular IV opioid dosing. Maximum acetaminophen dose from all sources= 75 mg/kg/day not to exceed 4 grams., Post-procedure HYDROmorphone (PF) (DILAUDID) injection 0.3-0.5 mg (CANCELED ) 1307 (Given - Provider: Narcisa Buckley RN)1312 (Given - Provider: Narcisa Buckley RN)1321 (Given - Provider: Narcisa Buckley RN)1340 (Given - Provider: Narcisa Buckley RN) 0.3-0.5 mg, Intravenous, EVERY 5 MIN PRN , Starting Tue04/15/14 at 1305, Until Tue04/15/14 at 1541, moderate to severe pain, acute pain. May administer if RR is > 10 , PACU, If fentanyl is also ordere d, use HYDROmorphone if pain control ins ufficient with fentanyl or a longer acting agent is needed. Max cumulative dose = 2 mg lidocaine BUFFERED 1 % solution 0.1-1 mL (COMPLETED) 0932 (Given - Provider: Natali Arrington RN) 0.1-1 mL, Intradermal, ONCE PRN, mild pa in with VAD insertion or accessing implanted port., Starting Tue04/15/14 at 0848, For 1 dose, Do NOT give if patient has a history of allergy to any local anesthetic or any wyatt product., Pre-procedure methocarbamol (ROBAXIN) tablet 750 mg 19 53 (Given - Provider: Marixa Ji RN) 0202 (Given - Provider: Too Li)0902 (Given - Provider: Shoshana Muñoz RN) 750 mg, Oral, EVERY 6 HOURS PRN, muscle spasms, Starting Tue04/15/14 at 1551, Post-procedure morphine injection 2-4 mg (CANCELED) 161 6 (Given - Provider: Marixa Ji RN)1755 (Given - Provider: Marixa Ji RN) 2-4 mg, Intravenous, EVERY 1 HOUR PRN, s evere pain, or patient unable to take PO, Starting Tue04/15/14 at 1551, Hold while on WELL SITE DRILLING ENGINEER., Post-procedure phenol-menthol (CEPASTAT) lozenge 1-2 lozenge (CANCELED) 1716 (Given - Provider: Marixa Ji RN)1901 (Given - Provider: Marixa Ji RN)2106 (Given - Provider: Marixa Ji RN)2304 (Given - Provider: Marixa Ji RN) 1-2 lozenge, Buccal, EVERY 1 HOUR PRN, o ther, dry/sore throat without fever , Starting Tue04/15/14 at 1646 thrombin 5000 UNITS vial (CANCELED) 1152 (Given - Provider: Umang Sandoval MD) PRN, Starting Tue04/15/14 at 1152, Intra-procedure documented in this encounter Care Teams Criminal Legal Assistant Relationship Specialty Start Date End Date Maged Aggarwal MD PCP - General Internal Medicine 12/14/13 03/16/15 [place] [address] documented as of this encounter
--- OUTSIDE RECORDS SUMMARY | 2022-06-25 13:55 | XMS_ITS | Encounter Summary ---
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; LEFT UPPER EXTREMITY WEAKNESS Sh Periop Services Procedures COMBINED DISCECTOMY, FUSION CERVICAL ANTERIOR ONE LEVEL [address], [address] [place] [address] Phone: Referral ID Status Reason Start Date Expiration Date Visits Requ ested Visits Authorized [id number] Closed 1 1 Encounter Details Date Type Department Care Team Description 04/15/2014 - [facility], S/P cervic al spinal fusion (Primary Dx); 04/16/2014 Encounter [place] [facility] Herniation of c ervical intervertebral disc with radiculopathy Neuroscience Unit MD Ramon [address] [place], [place] [facility] [address] [phone] [address] [place] [address] Social History Tobacco Use Types Packs/Day Years Used Date Smoking Tobacco: Every Day Cigarettes Smokeless Tobacco: Never Alcohol Use Standard Drinks/Week Comments No 0 (1 standard drink = 0.6 oz pure alcoho l) Sex Assigned at Date Recorded 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 Last Filed Vital Signs Vital Sign Reading Time Taken Comments Blood Pressure 135/72 04/16/2014 7:33 AM CDT Pulse - - Temperature 36.7 ??C (98 ??F) 04/16/2014 7:33 AM CDT Respiratory Rate 16 04/16/2014 7:33 AM CDT Oxygen Saturation 95% 04/16/2014 7:33 AM CDT Inhaled Oxygen Concentration - - Weight 88.9 kg (196 lb) 04/15/2014 9:12 AM CDT Height - - Body Mass Index 28.12 03/19/2014 9:27 AM CDT documented in this encounter Discharge Instructions Discharge InstructionsShoshana Muñoz RN - 04/16/2014 7:21 AM CDT [facility] [phone] Tuesday-Tuesday; 8am-4:00pm Care Instructions Following Spine Surgery [...] after surgery. If you were closed with Wagener russo (glue), you may shower without covering [...] Haywood NP - 04/16/2014 7:04 AM CDT [facility] Neurosurgery Progress Note 1 Day Post-Op Procedure(s) [...] Liya Haywood CNP [facility] [address] [address] Tel. [phone] Pager: [phone] Narcisa Buckley RN - 04/15/2014 3:16 PM [...] Armendariz MD - 04/05/2014 10:50 AM CDT [facility] [address] [facility] [address] Dept: [phone] PRE-OP EVALUATION: Today's date: 04/05/2014 Feng Perez (: 1965) presents for pre-operative evaluation assessment as requested by Dr. Sandoval. He requires evaluation and anesthesia risk assessment prior to undergoing surgery/procedure for treatment of cervical disc herniation . Proposed procedure: neck surgery Date of Surgery/ Procedure: 04/15/14 Time of Surgery/ Procedure: 8.2am Hospital/Surgical Facility: [facility] Fax number for surgical facility: [phone] Primary Physician: Maged Aggarwal Type of Anesthesia [...] 0 ? ? varenicline (CHANTIX STARTING MONTH ) 0.5 MG X 11 & 1 MG [...] cardiovascular risks for perioperative complications such as (NE, PE, VFib and 3?? AV Block): No [...] evaluation report is provided to requesting physician. [facility] Preop Guidelines 2013 documented in this encounter Nursing Notes Natali Arrington, BRITTON - 04/15/2014 9:00 AM CDT Hx of hepatitis from bad food 15 yrs ago documented in this encounter Miscellaneous Notes Plan of Care - Tali Garcia RN - 04/16/2014 6:55 AM CDT Problem: IP GENERAL POC-ADULT,OB,BEHAVIORAL FVCPM Goal: Individualization/Patient-Specific Goal (Adult,OB,Behavioral The patient and/or their patient admitting representative will achieve their patient-specific goals related [...] Individualization/Patient-Specific Goal (Adult,OB,Behavioral The patient and/or their patient admitting representative will achieve their patient-specific goals related [...] Care Review (Adult,OB,Behavioral) The patient and/or their patient admitting representative will communicate an understanding of their [...] placed centrally 2. Placement of a Globus Greer anterior cervical plate with four 16 mm screws 3. Use of microscope and C-arm Surgeon: Umang Sandoval MD, FAANS Pricing Strategist: Liya Haywood CNP Indication for procedure: The [...] was then removed with the Midas Jose Cruz drill down to the posterior longitudinal ligament. [...] have an appropriate fit. Next, the Globus Greer anterior cervical plate was secured from C5 [...] AM 4 7:16 CDT AM CDT Umang RUCKER POCT Performing Organization Address [facility]/ZIP Code Phon e Number FV POINT OF CARE TEST, GLUCOSE POINT OF CARE TEST, GLUCOSE (ABNORMAL) Glucose by meter (04/16/2014 6:10 AM CDT) P athologist Signature Glucose 128 (H) 60 - 99 POINT OF CARE mg/dL TEST, GLUCOSE Specimen Anatomical Collection Method Collection Time Receive d Time (Source) Location / / Volume Laterality 04/16/2014 6:10 AM 4 6:20 CDT AM CDT Umang RUCKER POCT Performing Organization Address City/[facility]/ZIP Code Phon e Number FV POINT [...] be read by a radiologist or a [place] non-radiologis t provider. Umang Sandoval MD IMG [...] C5-C6. SARAH HERNANDEZ MD Umang Sandoval MD IMG DIAGNOSTIC IMAGING ORD ERABLES Potassium (04/15/2014 9:09 AM CDT) P athologist Signature Potassium 4.2 3.4 - 5.3 [place] mmol/L [facility] Specimen Anatomical Collection Method Collection Time Receive d Time (Source) Location / / Volume Laterality Blood specimen 04/15/2014 9:09 AM 014 9:28 (specimen) CDT AM CDT Robert Charles MD LAB - BLOOD ORDERABLES Performing Organization Address City/State/ZIP Code Phon e Number [facility] [address] [address] [facility] documented in this encounter Visit Diagnoses Diagnosis S/P cervical spinal fusion - Primary Arthrodesis status Herniation of cervical intervertebral di sc with radiculopathy Displacement of cervical intervertebral disc without myelopathy S/P cervical spinal fusion Arthrodesis status documented in this encounter Administered Medications Inactive Administered Medications - up to 3 most recent administrations Medication Order MAR Action Action Date Dose Rate Site 0.9 % sodium chloride with KCl New Bag 04/16/2014 6:43 AM CDT 75 mL/hr 20 mEq/L IV infusion at 75 mL/hr, Intravenous, CONTINUOUS, Change to saline lock when PO well tolerated., Post-procedure, Starting on Tue04/15/14 at 1600, Until Tue04/16/14 at 0735 New Bag 04/15/2014 4:16 PM CDT 75 mL/hr amLODIPine (NORVASC) tablet 5 mg Given 04/15/2014 9:06 PM CDT 5 mg 5 mg, Oral, AT BEDTIME, First dose on Tue04/15/14 at 2200 ceFAZolin (ANCEF) IVPB 2 g (pre-mix) New Bag 04/16/2014 3:07 AM CDT 2 g 200 mL/hr Routine, 2 g, Intravenous, EVERY 8 HOURS, First dose (after last reorder) on Tue04/15/14 at 1900, For 3 doses, Give first dose within 1 hour PRIOR to incision. If patient weight is greater than or equal to 120 kg change dose to 3 g., Indications: Perioperative Pharmacoprophylaxis New Bag 04/15/2014 6:25 PM CDT 2 g 200 mL/hr fentaNYL (SUBLIMAZE) injection 25-50 mcg Given 04/15/2014 2:14 PM CDT 50 mcg 25-50 mcg, Intravenous, EVERY 2 MIN PRN, other, acute pain, Starting on Tue04/15/14 at 1305, MAX cumulative dose = 250 mcg. Use Fentanyl initially, as a short acting agent for acute pain control. If insufficient, or a longer acting agent is needed, begin Morphine or Hydromorphone if ordered., PACU Given 04/15/2014 1:57 PM CDT 50 mcg HYDROcodone-acetaminophen (LORTAB) 7.5-325 Given 04/16/2014 9:02 AM CDT 15 mLs MG/15ML solution 10-15 mL 10-15 mL, Oral, EVERY 4 HOURS PRN, moderate to severe pain, Starting on Tue04/15/14 at 1551, Hold while on FLAG DECORATOR or with regular IV opioid dosing. Maximum acetaminophen dose from all sources= 75 mg/kg/day not to exceed 4 grams., Post-procedure Given 04/16/2014 3:07 AM CDT 15 mLs Given 04/15/2014 11:04 PM CDT 15 mLs HYDROmorphone (PF) (DILAUDID) injection Given 04/15/2014 1:40 PM CDT 0.5 mg 0.3-0.5 mg 0.3-0.5 mg, Intravenous, EVERY 5 MIN PRN, moderate to severe pain, acute pain. May administer if RR is > 10 , Starting on Tue04/15/14 at 1305, If fentanyl is also ordered, use HYDROmorphone if pain control insufficient with fentanyl or a longer acting agent is needed. Max cumulative dose = 2 mg , PACU Given 04/15/2014 1:21 PM CDT 0.5 mg Given 04/15/2014 1:12 PM CDT 0.5 mg lactated ringers infusion New Bag 04/15/2014 9:32 AM CDT 1,000 mLs 10 mL/hr at 10 mL/hr, Intravenous, CONTINUOUS, Pre-procedure, Starting on Tue04/15/14 at 0900, Until Tue04/15/14 at 1250 lactated ringers infusion New Bag 04/15/2014 1:34 PM CDT 1,000 mLs 100 mL/hr at 100 mL/hr, Intravenous, CONTINUOUS, Continue until IV catheter is weaned, PACU, Starting on Tue04/15/14 at 1315, Until Tue04/15/14 at 1541 lidocaine 2 % (Uro-Jet) jelly 10-20 mL Given 04/15/2014 5:56 PM CDT 20 mLs 10-20 mL, Urethral, ONCE, On Tue04/15/14 at 1800, For 1 dose, Into penis lidocaine 2 % (Uro-Jet) jelly 10-20 mL Given 04/15/2014 8:20 PM CDT 20 mLs 10-20 mL, Urethral, ONCE, On Tue04/15/14 at 2015, For 1 dose, Into penis lidocaine 2 % (Uro-Jet) jelly Starting on Tue04/15/14 at 1753, For 1 d Garrison mauricio Christine: cabinet override lidocaine BUFFERED 1 % solution 0.1-1 mL Given 04/15/2014 9:32 AM CDT 0.5 mLs 0.1-1 mL, Intradermal, ONCE PRN, mild pain with VAD insertion or accessing implanted port., Starting on Tue04/15/14 at 0848, For 1 dose, Do NOT give if patient has a history of allergy to any local anesthetic or any wyatt product., Pre-procedure losartan (COZAAR) tablet 50 mg Given 04/15/2014 9:06 PM CDT 50 mg 50 mg, Oral, AT BEDTIME, First dose on Tue04/15/14 at 2200 methocarbamol (ROBAXIN) tablet 750 mg Given 04/16/2014 9:02 AM CDT 750 mg 750 mg, Oral, EVERY 6 HOURS PRN, muscle spasms, Starting on Tue04/15/14 at 1551, Post-procedure Given 04/16/2014 2:02 AM CDT 750 mg Given 04/15/2014 7:53 PM CDT 750 mg morphine 2 MG/ML injection Starting on Tue04/15/14 at 1614, For 1 d Garrison mauricio Christine: cabinet override morphine injection 2-4 mg Given 04/15/2014 5:55 PM CDT 4 mg 2-4 mg, Intravenous, EVERY 1 HOUR PRN, severe pain, or patient unable to take PO, Starting on Tue04/15/14 at 1551, Hold while on FLAG DECORATOR., Post-procedure Given 04/15/2014 4:16 PM CDT 2 mg phenol-menthol (CEPASTAT) 14.5 MG lozeng e Starting on Tue04/15/14 at 1651, For 1 d Garrison mauricio Christine: cabinet override phenol-menthol (CEPASTAT) lozenge 1-2 Given 04/15/2014 11:04 PM CDT 2 lozenges lozenge 1-2 lozenge, Buccal, EVERY 1 HOUR PRN, other, dry/sore throat without fever , Starting on Tue04/15/14 at 1646 Given 04/15/2014 9:06 PM CDT 2 lozenges Given 04/15/2014 7:01 PM CDT 2 lozenges senna-docusate (SENOKOT-S;PERICOLACE) Given 04/16/2014 8:21 AM C DT 1 tablet 8.6-50 MG per tablet 1-2 tablet 1-2 tablet, Oral, 2 TIMES DAILY, First dose on Tue04/15/14 at 2100, Start with 1 tablet PO BID, If no bowel movement in 24 hours, increase to 2 tablets po BID. Hold for loose stools. Preferred agent for constipation related to opioids., Post-procedure Given 04/15/2014 8:20 PM CDT 1 tablet tamsulosin (FLOMAX) capsule 0.4 mg Given 04/16/2014 9:02 AM CDT 0.4 mg 0.4 mg, Oral, DAILY, First dose on Tue04/15/14 at 2014 Given 04/15/2014 9:06 PM CDT 0.4 mg varenicline (CHANTIX) tablet 1 mg Given 04/16/2014 9:02 AM CDT 1 mg 1 mg, Oral, 2 TIMES DAILY, First dose on Tue04/15/14 at 2100 Given 04/15/2014 8:20 PM CDT 1 mg documented in this encounter Active and Recently Administered Medications Times are shown in CDT. Scheduled Medication Order 04/14/2014 04/15/2014 04/16/2014 amLODIPine (NORVASC) tablet 5 mg (CANCELED) 2105 (Given - Provider: Marixa Ji RN) 5 mg, Oral, AT BEDTIME, First dose on Tue04/15/14 at 2200 ceFAZolin (ANCEF) IVPB 2 g (pre-mix) (COMPLETED) 930 (Handoff - Provider: Natali Arrington RN)1115 (Given - Provider: Marixa Lockhart APRN CRNA) 2 g, Intravenous, PRE-OP/PRE-PROCEDURE, Starting Tue04/15/14 at 0848, For 1 dose, Give first dose within 1 hour PRIOR to incision. If patient weight is greater than or equal to 120 kg change dose to 3 g ., Indications: Surgical Prophylaxis, Pre-procedure ceFAZolin (ANCEF) IVPB 2 g (pre-mix) (CANCELED) 182 (New Bag - Provider: Marixa Ji RN) 0307 (New Bag - Provider: Tali Garcia RN) 2 g, Intravenous, EVERY 8 HOURS, First [...] 0.4 mg 2105 (Given - Provider: Marixa Ji RN) 901 (Given - Provider: Shoshana garces [...] KCl 20 mEq/L IV infusion (CANCELE D) 1616 (New Bag - Provider: Marixa Ji RN) 0643 (New Bag - Provider: Tali Garcia RN)0735 (Stopped - Provider: Shoshana Muñoz RN) at 75 mL/hr, Intravenous, CONTINUOUS, Ch josé to saline lock when PO well tolerated., Post-procedure, Starting Tue04/15/14 at 1600, Until Tue04/16/14 at 0735 lactated ringers infusion (CANCELED) 105 1 (New Bag - Provider: Marixa Lockhart APRN STAY CUTTER)1156 (New Bag - Provider: Marixa Lockhart APRN STAY CUTTER)1254 (Anesthesia Volume Adjustment - Provider: Marixa Lockhart APRN STAY CUTTER) at 75-100 mL/hr, Intravenous, CONTINUOUS , UNLESS [...] RN)2304 (Given - Provider: Marixa Ji RN) 0307 (Given - Provider: Too Li)0902 (Given - Provider: Shoshana Muñoz RN) 10-15 mL, Oral, EVERY 4 HOURS PRN, moder ate to severe pain, Starting Tue04/15/14 at 1551, Hold while on FLAG DECORATOR or with regular IV opioid dosing. Maximum [...] BUFFERED 1 % solution 0.1-1 mL (COMPLETED) 931 (Given - Provider: Natali Arrington RN) 0.1-1 [...] Starting Tue04/15/14 at 1551, Hold while on FLAG DECORATOR., Post-procedure phenol-menthol (CEPASTAT) lozenge 1-2 lozenge (CANCELED) [...] Intra-procedure documented in this encounter Care Teams Parimutuel Ticket Seller Relationship Specialty Start Date End Date Maged Aggarwal MD PCP - General Internal Medicine 12/14/13 03/16/15 [address] [place] [address] documented as of this encounter
--- OUTSIDE RECORDS SUMMARY | 2022-06-25 13:55 | XMS_ITS | Encounter Summary ---
:1965 Author Organization [facility] Address [address] [place] [address] Care Team Providers Name Role Phone Maged Aggarwal MD Primary Care Provider Leticia Armendariz MD Unavailable Leticia Armendariz MD Unavailable Encounter Details Date Type Department Care Team Description 06/29/2014 Medical Correspondence [facility], [facility]/PHARMACY [facility] 06/29/14 Info [facility] [address], [address] [place] [address] Social History Tobacco Use Types Packs/Day Years Used Date Smoking Tobacco: Every Day Cigarettes Smokeless Tobacco: Never Alcohol Use Standard Drinks/Week Comments No 0 (1 standard drink = 0.6 oz pure alcoho l) 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
--- OUTSIDE RECORDS SUMMARY | 2022-06-25 13:55 | XMS_ITS | Encounter Summary ---
:1965 Author Organization [facility] Address [address] [place] [address] Care Team Providers Name Role Phone Maged Aggarwal MD Primary Care Provider Leticia Armendariz MD Unavailable Leticia Armendariz MD Unavailable Reason for Visit (Routine) - Closed Specialty Diagnoses / Procedures Referred By Contact Refer red To Contact Radiology / Radiology. Diagnoses Epic, mr safe Rh Mri [place] [address] [facility] [employer] [address] [place] [address] Phone: Fax: Referral ID Status Reason Start Date Expiration Date Visits Requ ested Visits Authorized [id number] Closed 07/04/2014 07/04/2015 1 1 Encounter Details Date Type Department Care Team Description 07/08/2014 Hospital Encounter [facility] Simon Jauregui Ba ckache, unspecified; [facility] MD Ant Lumbar [place] [address] [facility] [address] [facility] [phone] Social History Tobacco Use Types Packs/Day Years Used Date Smoking Tobacco: Every Day Cigarettes Smokeless Tobacco: Never Alcohol Use Standard Drinks/Week Comments No 0 (1 standard drink = 0.6 oz pure alcoho l) Sex Assigned at Date Recorded 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 documented in this encounter Results MR Lumbar Spine w/o Contrast (07/08/2014 6:41 PM MANAGER REGIONAL) Anatomical Region Laterality Modality Spine, SUBRAD MR MSK, UMP MR SPINE Magne tic Resonance Specimen (Source) Anatomical Location Collection Method / Collectio n Time Received Time / Laterality Volume Impressions 07/09/2014 2:39 PM MANAGER REGIONAL IMPRESSION: 1. Multilevel degenerative disc and face t disease. 2. L3-L4: Minimal central stenosis. 3. L4-L5: Mild right asymmetric disc pro trusion with mass effect on the L5 nerve root. Very mild central jame nosis. SUMANTH CASILLAS MD Narrative 07/09/2014 2:39 PM MANAGER REGIONAL MR LUMBAR SPINE WITHOUT CONTRAST July 08, 2014 6:41 PM HISTORY: Low back pain x6 weeks with rig ht leg radicular symptoms. Backache. TECHNIQUE: Sagittal T1 and STIR. Sagitta l T2 and axial dual-echo T2. FINDINGS: Five lumbar vertebrae are assu med. Mild multilevel degenerative disc disease changes. There is high signal posterior annular tearing at L3-L4 on the right. Findings by specific level: There is minimal to mild multilevel face t degenerative change. L1-L2: No disc herniation or stenosis. L2-L3: Right foraminal disc bulging. Thi s abuts the exiting L2 nerve. No central stenosis. Mild right foramina l stenosis. L3-L4: Disc bulging including foraminal components. Minimal central stenosis. Moderate right and mild-modera te left foraminal stenosis. L4-L5: Mild central and right parasagitt al disc protrusion, with mass effect on the right L5 nerve root. There is mild central stenosis. Mild bilateral foraminal stenosis. L5-S1: Disc bulging without central sten osis. The neural foramina appear adequate. Procedure Note Sumanth Casillas MD - 07/09/2014Formatting o f this note might be different from the original. MR LUMBAR SPINE WITHOUT CONTRAST 2013 6:41 PM HISTORY: Low back pain x6 weeks with rig ht leg radicular symptoms. Backache. TECHNIQUE: Sagittal T1 and STIR. Sagitta l T2 and axial dual-echo T2. FINDINGS: Five lumbar vertebrae are assu med. Mild multilevel degenerative disc disease changes. There is high signal posterior annular tearing at L3-L4 on the right. Findings by specific level: There is minimal to mild multilevel face t degenerative change. L1-L2: No disc herniation or stenosis. L2-L3: Right foraminal disc bulging. Thi s abuts the exiting L2 nerve. No central stenosis. Mild right foramina l stenosis. L3-L4: Disc bulging including foraminal components. Minimal central stenosis. Moderate right and mild-modera te left foraminal stenosis. L4-L5: Mild central and right parasagitt al disc protrusion, with mass effect on the right L5 nerve root. There is mild central stenosis. Mild bilateral foraminal stenosis. L5-S1: Disc bulging without central sten osis. The neural foramina appear adequate. IMPRESSION IMPRESSION: 1. Multilevel degenerative disc and face t disease. 2. L3-L4: Minimal central stenosis. 3. L4-L5: Mild right asymmetric disc pro trusion with mass effect on the L5 nerve root. Very mild central jame nosis. 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
--- OUTSIDE RECORDS SUMMARY | 2022-06-25 13:55 | XMS_ITS | Encounter Summary ---
:1965 Author Organization [facility] Address [address] [place] [address] Care Team Providers Name Role Phone Maged Aggarwal MD Primary Care Provider Reason for Referral Consultation - Closed Specialty Diagnoses / Procedures Referred By Contact Refer red To Contact Orthopedics and Sports Diagnoses Lumbar back pain Leticia Armendariz [facility] MD [facility] [address] [address] [address] [place] [address] Phone: [phone] Fax: [phone] Referral ID Status Reason Start Date Expiration Date Visits Requ ested Visits Authorized [id number] Closed 06/27/2014 12/24/2014 1 1 Reason for Visit Reason Comments Back Pain x 4 weeks ago pt bent over a nd felt and heard his back pop. 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 encounter Last Filed Vital Signs Vital Sign Reading Time Taken Comments Blood Pressure 106/76 06/27/2014 7:27 AM CDT Pulse 92 06/27/2014 7:27 AM CDT Temperature 36.6 ??C (97.9 ??F) 06/27/2014 7:27 AM CDT Respiratory Rate - - Oxygen Saturation 98% 06/27/2014 7:27 AM CDT Inhaled Oxygen Concentration - - Weight 91.2 kg (201 lb) 06/27/2014 7:27 AM CDT Height 177.8 cm (5' 10) 06/27/2014 7:27 AM CDT Body Mass Index 28.84 06/27/2014 7:27 AM CDT documented in this encounter Patient Instructions Patient InstructionsDuLeticia chou MD - 06/27/2014 7:53 AM CDT You can reach your [facility] Care Team any time of the day by calling [phone]. This number will put you in touch with the 24 hour nurse line even if the clinic is closed. The clinic hours for [facility] are: Tuesday through 7am to 6pm Tuesday 7am to 5pm Tuesday 8am to 12p for Pediatrics only. To contact your Local Owner Operator Truck Driver please call [phone]. This is a direct number for your care team during clinic hours. [facility] is now open for your convenience: Tuesday through Tuesday 7:30am to 7pm Tuesday and Tuesday 9am to 3pm They are closed on all major holidays. documented in this encounter Progress Notes Leticia Armendariz MD - 06/27/2014 7:28 AM CDT . SUBJECTIVE: Feng Perez is a 49 year old male who presents to clinic today for the following health issues: Back pain He recently had cervical fusion, which helped resolve his left numbness. He has returned to work and weight lifting. Four weeks ago he felt and heard his lower back pop when he bent over to pick something up. Sitting worsens the pain. The pain is located in the lumbar region and radiates to the knee. No numbness or tingling. He does feel as if he is weak. Standing and laying flat does not bother him. He has been to the chiropractor 6 times in a row. He has also been performing stretches. Of note, he also had right leg pain back in 03/05/14. Problem list and histories reviewed & adjusted, as indicated. ROS: C: NEGATIVE for fever, chills, change in weight R: NEGATIVE for significant cough or SOB CV: NEGATIVE for chest pain, palpitations or peripheral edema Back: back pain Neuro: no numbness or tingling; feels weak OBJECTIVE: BP 106/76 Pulse 92 Temp(Src) 97.9 ??F (36.6 ??C) (Oral) Ht 5' 10 (1.778 m) Wt 201 lb (91.173 kg) BMI 28.84 kg/m2 SpO2 98% Body mass index is 28.84 kg/(m^2). GENERAL: healthy, alert, well nourished, well hydrated, no distress RESP: lungs clear to auscultation - no rales, no rhonchi, no wheezes CV: regular rates and rhythm, normal S1 S2, no S3 or S4 and no murmur, no click or rub - Back: pain upon palpation of right lumbar paraspinal muscles Neuro: strength 5/5 of lower extremities; DTR's intact; sensation intact; POSITIVE leg raise of the right leg; able to walk on heels and toes ASSESSMENT/PLAN: (724.2) Lumbar back pain (primary encounter diagnosis) Comment: 4 weeks of symptoms- will have artillery specialist decide if MRI recommended vs Physical therapy for likely disc herniation Plan: ORTHO LINE TENDER REFERRAL -recommended patient not work until seen by artillery specialist, 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 Chief Complaint Patient presents with ??? Back Pain x 4 weeks ago pt bent over and felt and heard his back pop. initial BP 106/76 Pulse 92 Temp(Src) 97.9 ??F (36.6 ??C) (Oral) Ht 5' 10 (1.778 m) Wt 201 lb (91.173 kg) BMI 28.84 kg/m2 SpO2 98% Estimated body mass index is 28.84 kg/(m^2) as calculated from the following: Height as of this encounter: 5' 10 (1.778 m). Weight as of this encounter: 201 lb (91.173 kg).. bp completed using cuff size large JULIET PARSONS LPN documented in this encounter Plan of Treatment Pending Results Name Type Priority Associated Diagnoses Date/Ti ga ORTHO LINE TENDER REFERRAL Referral Routine Lumbar back pain 06/27/2014 documented as of this encounter Visit Diagnoses Diagnosis Lumbar back pain - Primary Lumbago documented in this encounter Care Teams Soft Top Installer Relationship Specialty Start Date End Date Maged Aggarwal MD PCP - General Internal Medicine 12/14/13 03/16/15 [address] [place] [address] documented as of this encounter
--- OUTSIDE RECORDS SUMMARY | 2022-06-25 13:55 | XMS_ITS | Encounter Summary ---
:1965 Author Organization [facility] Address [address] [place] [address] Care Team Providers Name Role Phone Maged Aggarwal MD Primary Care Provider Reason for Visit Reason Onset Date Comments Patient Inquiry 06/27/2014 Encounter Details Date Type Department Care Team Description 06/27/2014 Telephone [facility] Maged Aggarwal MD Patient Inquiry [address] [address] [facility] [place] [address] [phone] Social History Tobacco Use Types Packs/Day Years Used Date Smoking Tobacco: Every Day Cigarettes Smokeless Tobacco: Never Alcohol Use Standard Drinks/Week Comments No 0 (1 standard drink = 0.6 oz pure alcoho l) Sex Assigned at Date Recorded 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 Contacted pt, he states that there is some confusion of which doctor is supposed to order the MRI. He couldn't remember if Dr. Armendariz was going to order this or wait for orthopedics to do it. Informed pt that per Dr. Armendariz's notes she wanted orthopedics to evaluate if MRI was needed. Pt verbalizes understanding. documented in this encounter Plan of Treatment Not on filedocumented as of this encounter Visit Diagnoses Not on filedocumented in this encounter Care Teams Tile Roofer Relationship Specialty Start Date End Date Maged Aggarwal MD PCP - General Internal Medicine 12/14/13 03/16/15 [address] [place] [address] documented as of this encounter
--- OUTSIDE RECORDS SUMMARY | 2022-06-25 13:55 | XMS_ITS | Encounter Summary ---
:1965 Author Organization [facility] Address [facility] [place] [address] Care Team Providers Name Role Phone Maged Aggarwal MD Primary Care Provider Leticia Armendariz MD Unavailable Leticia Armendariz MD Unavailable Reason for Referral [facility] - Closed Specialty Diagnoses / Procedures Referred By Contact Refer red To Contact Diagnoses DJD (degenerative joint disease), lumbar Lumbar radiculopathy Simon Jauregui, [facility] [address] [facility] [place], [place] [address] [facility] ADMIN OFFICE [place], [place] [address] Phone: [phone] Referral ID Status Reason Start Date Expiration Date Visits Requ ested Visits Authorized [id number] Closed 07/10/2014 01/06/2015 1 1 TS TEAM MANAGER Reason for Visit Reason Comments Back Pain less debilitating pain, but constant pain with some intermittent sharp pains Encounter Details Date Type Department Care Team Description 07/10/2014 Office Visit [facility] Simon JaureguiD (deg enerative joint disease), lumbar (Primary Dx); Orthopedic MD Ant Lumbar radiculopathy [facility] [address] [place], [place] [address] [facility], [address] [address] [place] [address] [place], [place] (Work) [phone] Social History Tobacco Use Types Packs/Day Years Used Date Smoking Tobacco: Every Day Cigarettes Smokeless Tobacco: Never Alcohol Use Standard Drinks/Week Comments No 0 (1 standard drink = 0.6 oz pure alcoho l) Sex Assigned at Date Recorded 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 DJD (degenerative joint disease), lumbar 2. Lumbar radiculopathy Physical therapy: [facility] - [phone] - Schedule with Keyla Hunter, PT Follow up if not improving - we may consider injection (sooner if needed; call direct clinic number [[phone]] at any time with questions or concerns) To better serve our patients, [facility] with be moving to the [facility] [place] on July 22, 2014. Our new address will be: [address] [place] [address], [place] [address] Our phone number will continue to be [phone]. TS TEAM MANAGER documented in this encounter Progress Notes Simon Jauregui MD - 07/10/2014 8:48 AM CST [facility] Follow-up Visit s Jul 10, 2014 Subjective: Feng Perez is a 49 year old male who is seen in follow up for evaluation of low back and radiating right leg pain. His last visit was on 07/01/2014. Since that time, symptoms have improved - he notes much less debilitating pain through the back and leg, and in fact symptoms have centralized somewhat. Still with constant aching in the right lower lumbar region and intermittent paresthesias in the right leg past the knee, but overall he feels improved. Patient's past medical, surgical, social and family histories are reviewed today. Objective: BP 112/68 Ht 5' 10 (1.778 m) Wt 201 lb (91.173 kg) BMI 28.84 kg/m2 General: healthy, alert and no distress Skin: no suspicious lesions or rashes Neuro: Sensory and motor exam grossly normal; no focal neurologic deficits appreciated. MSK: Lumbar spine - no deformity. Tender right lower paralumbar and lower lumbar spinous processes. Lumbar flexion and extension still limited by tightness and pain. Normal strength, no foot drop. + SLR/slump test. Imaging: MRI Lumbar Spine: IMPRESSION: 1. Multilevel degenerative disc and facet disease. 2. L3-L4: Minimal central stenosis. 3. L4-L5: Mild right asymmetric disc protrusion with mass effect on the L5 nerve root. Very mild central stenosis. ASSESSMENT: 1. DJD (degenerative joint disease), lumbar 2. Lumbar radiculopathy PLAN: Ongoing low back and right leg pain, improved from last evaluation. He continues to have radicular symptoms into the leg past the knee, though overall his pain has centralized. Symptoms are concordant with MRI findings of L4-L5 foraminal stenosis and L5 nerve root impingement. We reviewed operative and nonoperative treatment options, including PT, injection therapy and surgery. Given that he has seenimprovement over the past week and that there are no red flag findings, we will start with a dedicated spine PT program. If he is not steadily improving or reaches a plateau, he will call and we would order a transforaminal injection at L4-L5 on the right. Smoking cessation discussed. He will contact our office sooner should the condition evolve or worsen. Simon Jauregui MD, [facility] TS TEAM MANAGER documented in this encounter Nursing Notes Danita García - 07/10/2014 8:45 AM CST Chief Complaint Patient presents with ??? Back Pain less debilitating pain, but constant pain with some intermittent sharp pains Initial BP 112/68 Ht 5' 10 (1.778 m) Wt 201 lb (91.173 kg) BMI 28.84 kg/m2 Estimated body mass index is 28.84 kg/(m^2) as calculated from the following: Height as of this encounter: 5' 10 (1.778 m). Weight as of this encounter: 201 lb (91.173 kg). BP completed using cuff size: large Danita García ATC TS TEAM MANAGER documented in this encounter Plan of Treatment Scheduled Referrals Name Type Priority Associated Diagnoses Order S chedule [facility] PT, HAND, AND Referral Routine DJD (degenerative joint Ordered: 07/10/2014 CHIROPRACTIC REFERRAL disease), lumbar Lumbar radiculopathy documented as of this encounter Visit Diagnoses Diagnosis DJD (degenerative joint disease), lumbar - Primary Degeneration of lumbar or lumbosacral in tervertebral disc Lumbar radiculopathy Thoracic or lumbosacral neuritis or radi culitis, unspecified documented in this encounter Care Teams Route Rider Supervisor Relationship Specialty Start Date End Date Maged Aggarwal MD PCP - General Internal Medicine 12/14/13 03/16/15 [address] [place] [address] Leticia Armendariz MD PCP - Assigned PCP 06/30/14 11/07/18 [facility] [address] [place] [address] Leticia Armendariz MD Assigned PCP 06/30/14 01/06/19 [facility] [address] [place] [address] documented as of this encounter
--- OUTSIDE RECORDS SUMMARY | 2022-06-25 13:56 | XMS_ITS | Encounter Summary ---
:1965 Author Organization [facility] Address [address] [place] [address] Care Team Providers Name Role Phone No Ref-Primary, Physician Primary Care Provider Maged Aggarwal MD Primary Care Provider Encounter Details Date Type Department Care Team Description 08/21/2013 Historic Results [facility] Heart Unknown, Doct or, [address] [place] [address] Social History Tobacco Use Types Packs/Day Years Used Date Smoking Tobacco: Former Cigarettes Quit : 06/26/2011 Alcohol Use Standard Drinks/Week Comments No 0 (1 standard drink = 0.6 oz pure alcoho l) Sex Assigned at Date Recorded 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 documented in this encounter Results (ABNORMAL) [facility] Historical Results (08/21/2013 12:00 AM FEED HOUSE SUPERVISOR) Analysis Performed At Patho logist Time Signature Sodium 141 136 - 145 [facility] mmol/L HISTORICAL RESULTS Potassium 4.6 3.5 - 5.1 [facility] mmol/L HISTORICAL RESULTS Chloride 103 98 - 107 [facility] mmol/L HISTORICAL RESULTS Carbon Dioxide 31 (H) 23 - 29 [facility] mmol/L HISTORICAL RESULTS Anion Gap Ratio 12 RATIO [facility] HISTORICAL RESULTS Urea Nitrogen 20 7 - 30 [facility] mg/dL HISTORICAL RESULTS Creatinine 1.4 (H) 0.7 - 1.3 [facility] mg/dL HISTORICAL RESULTS Calcium 9.5 8.5 - 10.5 [facility] mg/dL HISTORICAL RESULTS Glucose 99 70 - 105 [facility] mg/dL HISTORICAL RESULTS BUN/Creatinine 14.6 CALC [facility] Ratio HISTORICAL RESULTS eGFR Calculated 71 >60 mL/min [facility] (Black HISTORICAL Reference) RESULTS eGFR Calculated 59 (L) >60 mL/min [facility] (Non Black HISTORICAL Reference) RESULTS Specimen (Source) Anatomical Location Collection Method / Collectio n Time Received Time / Laterality Volume 08/21/2013 08/21/2013 Doctor Unknown MD LABORATORY Performing Organization Address City/State/ZIP Code Phon e Number [facility] HISTORICAL RESULTS documented in this encounter Visit Diagnoses Not on filedocumented in this encounter Care Teams Mortgage Collector Relationship Specialty Start Date End Date No Ref-Primary, Physician PCP - General 06/21/13 12/13/13 Maged Aggarwal MD PCP - General Internal Medicine 12/14/13 03/16/15 [address] [place] [address] documented as of this encounter
--- OUTSIDE RECORDS SUMMARY | 2022-06-25 13:56 | XMS_ITS | Encounter Summary ---
:1965 Author Organization [facility] Address [address] [place] [address] Care Team Providers Name Role Phone Maged Aggarwal MD Primary Care Provider Reason for Visit Reason Comments Musculoskeletal Problem Encounter Details Date Type Department Care Team Description 03/05/[address] [facility] Leticia Armendariz CARDIOChelsie ASCULAR SCREENING; LDL GOAL LESS THAN 130 (Primary Dx); Clinic Demarco Bender MD Tobacco use disorder; [address] [place] [address] Numbness and tingling of left arm and le g; [place] [address] Muscle pain; [place], [place] Insomnia [id number] [phone] Social History Tobacco Use Types Packs/Day Years Used Date Smoking Tobacco: Every Day Cigarettes L ast attempted to quit: 06/26/2011 Smokeless Tobacco: Never Tobacco Cessation: Ready to Quit: Yes Alcohol Use Standard Drinks/Week Comments No 0 (1 standard drink = 0.6 oz pure alcoho l) Sex Assigned at Date Recorded 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 encounter Last Filed Vital Signs Vital Sign Reading Time Taken Comments Blood Pressure 110/80 03/05/2014 7:34 AM CDT Pulse 60 03/05/2014 7:34 AM CDT Temperature 36.8 ??C (98.2 ??F) 03/05/2014 7:34 AM CDT Respiratory Rate - - Oxygen Saturation 98% 03/05/2014 7:34 AM CDT Inhaled Oxygen Concentration - - Weight 88 kg (194 lb) 03/05/2014 7:34 AM CDT Height - - Body Mass Index 28.65 12/19/2013 8:10 AM CDT documented in this encounter Patient Instructions Patient InstructionsAlbertina Christiansen MA - 03/05/2014 7:38 AM CDT You can reach your [facility] Care Team any time of the day by calling [phone]. This number will put you in touch with the 24 hour nurse line even if the clinic is closed. The clinic hours for [facility] are: Tuesday through 7am to 6pm Tuesday 7am to 5pm Tuesday 8am to 12p for Pediatrics only. To contact your Pewter Caster please call [phone]. This is a direct number for your care team during clinic hours. [facility] is now open for your convenience: Tuesday through Tuesday 7:30am to 7pm Tuesday and Tuesday 9am to 3pm They are closed on all major holidays. documented in this encounter Progress Notes Leticia Armendariz MD - 03/05/2014 7:36 AM CDT SUBJECTIVE: Feng Perez is a 48 year old male who presents to clinic today for the following health issues: Patient here with left arm numbness for 3-4 weeks. He reports that he had weight lifted in the past. From the shoulder down to the fingers he has had numbness/tingling. Denies any neck pain. 1 week ago he went to a chiropractor. He has not been able to sleep secondary to the pain. 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 He denies any trauma at work. Right leg ache. His entire leg has been aching at rest. For 2 weeks he has noticed that his right leg will ache. He has not noticed swelling. Problem list and histories reviewed & adjusted, as indicated. Additional history: as documented ROS: C: NEGATIVE for fever, chills, change in weight R: NEGATIVE for significant cough or SOB CV: NEGATIVE for chest pain, palpitations or peripheral edema Neuro: numbness/tingling of left arm Right leg with pain OBJECTIVE: BP 110/80 Pulse 60 Temp(Src) 98.2 ??F (36.8 ??C) (Oral) Wt 194 lb (87.998 kg) BMI 28.64 kg/m2 SpO2 98% Body mass index is 28.64 kg/(m^2). GENERAL: healthy, alert, well nourished, well hydrated, no distress RESP: lungs clear to auscultation - no rales, no rhonchi, no wheezes CV: regular rates and rhythm, normal S1 S2, no S3 or S4 and no murmur, no click or rub - Neck: no tenderness upon palpation; negative spurling maneuver Back: negative straight leg exam Neuro: strength 5/5 bilaterally of upper extremities and lower extremities Right leg without swelling or pain upon palpation ASSESSMENT/PLAN: (V81.2) CARDIOVASCULAR SCREENING; LDL GOAL LESS THAN 130 (primary encounter diagnosis) Comment: fasting Plan: Lipid panel reflex to direct LDL, Comprehensive metabolic panel (305.1) Tobacco use disorder Comment: patient wishes to trial chantix Plan: varenicline (CHANTIX STARTING MONTH ) 0.5 MG X 11 & 1 MG X 42 tablet (782.0) Numbness and tingling of left arm and leg Comment: Plan: MR Cervical Spine w/o Contrast (729.1) Muscle pain Comment: Plan: CK total, CBC with platelets differential, Magnesium (780.52) Insomnia Comment: Plan: zolpidem (AMBIEN) 5 MG tablet Leticia Armendariz MD [facility] documented in this encounter Nursing Notes Albertina Christiansen MA - 03/05/2014 7:36 AM CDT Chief Complaint Patient presents with ??? Musculoskeletal Problem Initial BP 110/80 Pulse 60 Temp(Src) 98.2 ??F (36.8 ??C) (Oral) Wt 194 lb (87.998 kg) BMI 28.64 kg/m2 SpO2 98% Estimated body mass index is 28.64 kg/(m^2) as calculated from the following: Height as of 12/19/13: 5' 9 (1.753 m). Weight as of this encounter: 194 lb (87.998 kg). BP completed using cuff size: large Albertina Christiansen MA documented in this encounter Plan of Treatment Not on filedocumented as of this encounter Procedures Procedure Name Priority Date/Time Associated Diagnosis Comme nts CBC WITH PLATELETS & Routine 03/05/2014 8:10 Muscle pain Resu lts for this DIFFERENTIAL AM CDT procedure are i n the results section. MAGNESIUM Routine 03/05/2014 8:10 Muscle pain Results for this AM CDT procedure are i n the results section. COMPREHENSIVE Routine 03/05/2014 8:10 CARDIOVASCULAR Results f or this METABOLIC PANEL AM CDT SCREENING; LDL GOAL proce dure are in LESS THAN 130 the results section. CK TOTAL Routine 03/05/2014 8:10 Muscle pain Results for this AM CDT procedure are i n the results section. documented in this encounter Results Magnesium (03/05/2014 8:10 AM CDT) athologist Signature Magnesium 2.0 1.6 - 2.3 [facility] mg/dL [employer] Specimen Anatomical Collection Method Collection Time Receive d Time (Source) Location / / Volume Laterality Blood specimen 03/05/2014 8:10 AM 014 8:15 (specimen) CDT AM CDT Leticia Armendariz MD LAB - BLOOD ORDERABLES Performing Organization Address City/State/ZIP Code Phon e Number [facility] [address] [place] [address] [facility] [address] [place], [place] [address] CBC with platelets differential (03/05/2014 8:10 AM CDT) [facility] gist Method Time Signature WBC 7.6 4.0 - [facility] 11.0 [facility] 10e9/L [place] RBC Count 5.51 4.4 - 5.9 [facility] 10e12/L [facility] Hemoglobin 17.1 13.3 - [facility] 17.7 g/dL [facility] Hematocrit 49.7 40.0 - [facility] 53.0 % [facility] MCV 90 78 - 100 [facility] MCH 31.0 26.5 - [facility] 33.0 pg [facility] MCHC 34.4 31.5 - [facility] 36.5 g/dL [facility] RDW 13.8 10.0 - [facility] 15.0 % [facility] Platelet Count 230 150 - 450 [facility] 10e9/L [facility] Diff Method Automated [facility] Method [facility] % Neutrophils 64.6 % [facility] % Lymphocytes 22.3 % [facility] % Monocytes 11.0 % [facility] % Eosinophils 1.6 % [facility] % Basophils 0.5 % [facility] Absolute 4.9 1.6 - 8.3 [facility] Neutrophil 10e9/L [facility] Absolute 1.7 0.8 - 5.3 [facility] Lymphocytes 10e9/L [facility] Absolute 0.8 0.0 - 1.3 [facility] Monocytes 10e9/L [facility] Absolute 0.1 0.0 - 0.7 [facility] Eosinophils 10e9/L [facility] Absolute 0.0 0.0 - 0.2 [facility] Basophils 10e9/L [facility] Specimen Anatomical Collection Method Collection Time Receive d Time (Source) Location / / Volume Laterality Blood specimen 03/05/2014 8:10 AM 014 8:15 (specimen) CDT AM CDT Leticia Armendariz MD LAB - BLOOD ORDERABLES Performing Organization Address City/[facility]/ZIP Code Phon e Number [facility] [address] [place] [place] [address] [address] CK total (03/05/2014 8:10 AM CDT) P athologist Signature CK Total 247 30 - 300 [facility] U/L [employer] Specimen Anatomical Collection Method Collection Time Receive d Time (Source) Location / / Volume Laterality Blood specimen 03/05/2014 8:10 AM 014 8:15 (specimen) CDT AM CDT Leticia Armendariz MD LAB - BLOOD ORDERABLES Performing Organization Address City/[facility] Phon e Number [facility] [address] [place] [address] [facility] [address] [place], [place] [address] (ABNORMAL) Comprehensive metabolic panel (03/05/2014 8:10 AM CDT) athologist Signature Sodium 142 133 - 144 [facility] mmol/L [employer] Potassium 3.9 3.4 - 5.3 [facility] mmol/L [employer] Chloride 105 94 - 109 [facility] mmol/L [employer] Carbon Dioxide 26 20 - 32 [facility] S mmol/L [employer] Anion Gap 11 6 - 17 [facility] mmol/L [employer] Glucose 93 60 - 99 [facility] mg/dL [employer] Comment: Non Fasting Urea Nitrogen 14 5 - 24 mg/dL [facility] [employer] Creatinine 1.27 (H) 0.66 - 1.25 mg/dL [facility] [employer] GFR Estimate 61 >60 mL/min/1.7m2 [facility] C [facility] GFR Estimate If Black 73 >60 mL/min/1.7m2 F [facility] Calcium 9.4 8.5 - 10.4 mg/dL [facility] [employer] Bilirubin Total 1.3 0.2 - 1.3 mg/dL [facility] Albumin 4.1 3.9 - 5.1 g/dL [facility] S [employer] Protein Total 7.4 6.8 - 8.8 g/dL [facility] [employer] Alkaline Phosphatase 102 40 - 150 U/L [facility] ALT 46 0 - 70 U/L [facility] AST 33 0 - 45 U/L [facility] Specimen Anatomical Collection Method Collection Time Receive d Time (Source) Location / / Volume Laterality Blood specimen 03/05/2014 8:10 AM 014 8:15 (specimen) CDT AM CDT Leticia Armendariz MD LAB - BLOOD ORDERABLES Performing Organization Address City/State/ZIP Code Phon e Number [facility] [address] [place] [address] [place] [address] [facility] [address] [place], [place] [address] documented in this encounter Visit Diagnoses Diagnosis CARDIOVASCULAR SCREENING; LDL GOAL LESS THAN 130 - Primary Tobacco use disorder Numbness and tingling of left arm and le g Disturbance of skin sensation Muscle pain Mylagia and myositis, unspecified Insomnia Insomnia, unspecified documented in this encounter Care Teams Consultant Teacher Relationship Specialty Start Date End Date Maged Aggarwal MD PCP - General Internal Medicine 12/14/13 03/16/15 [address] [place] [address] documented as of this encounter
--- OUTSIDE RECORDS SUMMARY | 2022-06-25 13:56 | XMS_ITS | Encounter Summary ---
:1965 Author Organization [facility] Address [facility] [place] [address] Care Team Providers Name Role Phone Maged Aggarwal MD Primary Care Provider Reason for Visit Reason Comments Neurologic Problem Cervical HNP w/radiculopathy Encounter Details Date Type Department Care Team Description 03/19/2014 Office Visit [facility] Umang Murillo lacement of Neurosurgery MD [place] cervical intervertebral [address] [facility] disc without myelopathy [address] ORTHOPEDICS (Primary Dx) [place] [address] [phone] [address] [place] [address] Social History Tobacco Use Types Packs/Day Years Used Date Smoking Tobacco: Every Day Cigarettes L ast attempted to quit: 06/26/2011 Smokeless Tobacco: Never Alcohol Use Standard Drinks/Week Comments No 0 (1 standard drink = 0.6 oz pure alcoho l) Sex Assigned at Date Recorded 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 Simon Jauregui [place]: Feng Perez is a 49 year old male that presents to the office with a complaint of left upper extremity pain, numbness and weakness in the C6 distribution. The patient says that over the past2-3 months he has noticed significant increase in pain and numbness/paresthesias in his LUE. It has been waking him up and is now constant in nature. He attempted to see a Chiropractor and he felt thatthe patient needed to be seen by a surgeon. He has noticed weakness in his left biceps and feels that this is progressing. He was seen by Dr. Simon Jauregui and he also felt that he needed surgical evaluation instead of conservative measures. The patient is very uncomfortable and wants definitive treatment. Past Medical History Diagnosis Date ??? Coronary artery disease afib converted ??? Hypertension History reviewed. No pertinent past surgical history. Current Outpatient Prescriptions Medication ??? predniSONE (DELTASONE) 20 MG tablet ??? HYDROcodone-acetaminophen (NORCO) 5-325 MG per tablet ? ? varenicline (CHANTIX STARTING MONTH BRAND[place]) 0.5 MG X 11 & 1 MG X 42 tablet ??? zolpidem (AMBIEN) 5 MG tablet ??? Omeprazole (PRILOSEC PO) ??? doxylamine (UNISOM) 25 MG TABS No current facility-administered medications for this visit. 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 Sexually Active: Yes -- Female partner(s) Comment: spouse Other Topics Concern ??? None Social History Narrative Family History Problem Relation Age of Onset ??? Arthritis Mother ??? Circulatory Father ??? C.A.D. Maternal Grandmother ??? C.A.D. Paternal Grandmother Review Of Systems Skin: negative Eyes: negative Ears/Nose/Throat: negative Respiratory: No shortness of breath, dyspnea on exertion, cough, or hemoptysis Cardiovascular: negative Gastrointestinal: negative Genitourinary: negative Musculoskeletal: as above Neurologic: as above Psychiatric: negative Hematologic/Lymphatic/Immunologic: negative Endocrine: negative B/P: 124/85, T: Data Unavailable, P: 77, R: Data Unavailable Examination: Awake Alert Oriented x 3 Speech clear Cranial nerves II - XII intact Face symmetric Tongue midline Neck nontender Limited ROM of neck due to left arm pain Motor exam RUE - deltoid 5/5, biceps 5/5, triceps 5/5, wrist extension 5/5, wrist flexion 5/5, tassel making machine operator 5/5 LUE - deltoid 5/5, biceps 4/5, triceps 4+/5, wrist extension 5/5, wrist flexion 4+/5, tassel making machine operator 5/5 Sensation decreased in the left C6 distribution Clonus negative DTR 1+ Restrepo's sign negative Spurling's sign negative Ambulation normal Imaging: MRI cervical - mild C3-4 foraminal stenosis with a small right sided bulging disk. Also, a large left C5-6 herniated disk with compression and entrapment of the left C6 root Assessment/Plan: 1. I recommend that the patient have a C5-6 anterior cervical discectomy and fusion soon due to his weakness and significant increase in pain. I do not feel that conservative measures will help this patient. It is important that this nerve be decompressed soon to prevent permanent injury and chronic problems from delayed care. I discussed with the patient the risk of surgery to include, but, not be limited to; dysphagia, hoarseness, nerve injury, pseudoarthrosis, failure of hardware, failure of improvement of symptoms, CSF leak, infection, post op hematoma, the need for recurrent surgery, paralysis, coma and Umang Sandoval MD, MS, FAANS [facility] [address] [address] Gary Betts - 03/19/2014 9:28 AM CDT Feng Perez is a 49 year old male who presents for: Chief Complaint Patient presents with ??? Neurologic Problem Cervical HNP w/radiculopathy Initial Vitals: Ht 1.778 m (5' 10) Wt 90.719 kg (200 lb) BMI 28.7 kg/m2 Estimated body mass index is 28.7 kg/(m^2) as calculated from the following: Height as of this encounter: 1.778 m (5' 10). Weight as of this encounter: 90.719 kg (200 lb).. Body surface area is 2.12 meters squared. BP completed using cuff size: large Moderate Pain (4) Do you feel safe in your environment? Yes Do you need any refills today? No Nursing Comments: Cervical HNP w/ radiculopathy 3 minutes nursing intake time Gary Betts Discharge plan: Patient is scheduled for surgery. 1 minute nursing discharge time Marisela Betts Social Science Manager documented in this encounter Plan of Treatment Not on filedocumented as of this encounter Visit Diagnoses Diagnosis Displacement of cervical intervertebral disc without myelopathy - Primary documented in this encounter Care Teams Strip Cutter Relationship Specialty Start Date End Date Maged Aggarwal MD PCP - General Internal Medicine 12/14/13 03/16/[address] [place] [address] documented as of this encounter
--- OUTSIDE RECORDS SUMMARY | 2022-06-25 13:56 | XMS_ITS | Encounter Summary ---
:1965 Author Organization [facility] Address [address] [place] [address] Care Team Providers Name Role Phone No Ref-Primary, Physician Primary Care Provider [phone] Reason for Visit Reason Onset Date Comments Results 09/17/2013 Encounter Details Date Type Department Care Team Description 09/17/2013 Telephone [facility] Maged Aggarwal MD Results [place] [facility] [address] [facility] [address] [place] [address] [place] [address] [phone] Social History Tobacco Use Types Packs/Day Years Used Date Smoking Tobacco: Former Cigarettes Quit : 06/26/2011 Smokeless Tobacco: Never Alcohol Use Standard Drinks/Week Comments No 0 (1 standard drink = 0.6 oz pure alcoho l) Sex Assigned at Date Recorded 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 They would like Dr. Aggarwal to be aware that pt had BMP done today at cardiology appt. They noticed that Dr. Aggarwal had checked this at pt's appt last month and had recommended repeat labs be done. They will fax the results for him to review and also state that they are planning to recheck BMP again at appt on 10/09/13. E WATER OPERATOR documented in this encounter Plan of Treatment Not on filedocumented as of this encounter Visit Diagnoses Not on filedocumented in this encounter Care Teams Core Drier Relationship Specialty Start Date End Date No Ref-Primary, Physician PCP - General 06/21/13 12/13/13 documented as of this encounter
--- OUTSIDE RECORDS SUMMARY | 2022-06-25 13:56 | XMS_ITS | Encounter Summary ---
:1965 Author Organization [facility] Address [address] [place] [address] Care Team Providers Name Role Phone No Ref-Primary, Physician Primary Care Provider [phone] Encounter Details Date Type Department Care Team Description 09/17/2013 External Order [facility] Outside, Provider Results [address] [address] Social History Tobacco Use Types Packs/Day Years Used Date Smoking Tobacco: Former Cigarettes Quit : 06/26/2011 Smokeless Tobacco: Never Alcohol Use Standard Drinks/Week Comments No 0 (1 standard drink = 0.6 oz pure alcoho l) Sex Assigned at Date Recorded 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 POTASSIUM Routine 09/17/2013 Results for thi s procedure are i n the results section . CREATININE Routine 09/17/2013 Results for thi s procedure are i n the results section . GLUCOSE Routine 09/17/2013 Results for thi s procedure are i n the results section . documented in this encounter Results (ABNORMAL) Glucose (09/17/2013) P athologist Signature Glucose 135 (A) 60 - 99 [facility] mg/dL Specimen (Source) Anatomical Location Collection Method / Collectio n Time Received Time / Laterality Volume Blood specimen (specimen) Narrative [facility] - 09/17/2013 [facility] Provider Outside LAB - BLOOD ORDERABLES Performing Organization Address City/[facility]/ZIP Code Phon e Number [facility] Potassium (09/17/2013) P athologist Signature Potassium 4.1 mmol/L [facility] Specimen (Source) Anatomical Location Collection Method / Collectio n Time Received Time / Laterality Volume Blood specimen (specimen) Narrative [facility] - 09/17/2013 [facility] Provider Outside LAB - BLOOD ORDERABLES Performing Organization Address [facility]/ZIP [facility] Phon e Number [facility] Creatinine (09/17/2013) P athologist Signature Creatinine 1.5 mg/dL [facility] Specimen (Source) Anatomical Location Collection Method / Collectio n Time Received Time / Laterality Volume Blood specimen (specimen) Narrative [facility] - 09/17/2013 [facility] Provider Outside LAB - BLOOD ORDERABLES Performing Organization Address [facility] Phon e Number [facility] Lab Result - HIM Scan (09/17/2013) Narrative [facility] - 09/17/2013 This result has an attachment that is no t available. [facility] Provider Outside MH NON-BEAKER LAB TESTING Performing Organization Address [facility]/ZIP Code Phon e Number [facility] documented in this encounter Visit Diagnoses Not on filedocumented in this encounter Care Teams Concrete Mixing Plant Superintendent Relationship Specialty Start Date End Date No Ref-Primary, Physician PCP - General 06/21/13 12/13/13 documented as of this encounter
--- OUTSIDE RECORDS SUMMARY | 2022-06-25 13:56 | XMS_ITS | Encounter Summary ---
:1965 Author Organization [facility] Address [address] [place] [address] Care Team Providers Name Role Phone No Ref-Primary, Physician Primary Care Provider [phone] Maged Aggarwal MD Primary Care Provider Encounter Details Date Type Department Care Team Description 09/17/2013 Historic Results [facility] Heart Unknown, Doct or, [address] [place] [address] Social History Tobacco Use Types Packs/Day Years Used Date Smoking Tobacco: Former Cigarettes Quit : 06/26/2011 Smokeless Tobacco: Never Alcohol Use Standard Drinks/Week Comments No 0 (1 standard drink = 0.6 oz pure alcoho l) Sex Assigned at Date Recorded 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 documented in this encounter Results (ABNORMAL) [facility] Historical Results (09/17/2013 12:00 AM LOAN CLERK) Analysis Performed At Patho logist Time Signature Sodium 144 136 - 145 [facility] mmol/L HISTORICAL RESULTS Potassium 4.1 3.5 - 5.1 [facility] mmol/L HISTORICAL RESULTS Chloride 102 98 - 107 [facility] mmol/L HISTORICAL RESULTS Carbon Dioxide 31 (H) 23 - 29 [facility] mmol/L HISTORICAL RESULTS Anion Gap Ratio 15 RATIO [facility] HISTORICAL RESULTS Urea Nitrogen 9 7 - 30 [facility] mg/dL HISTORICAL RESULTS Creatinine 1.5 (H) 0.7 - 1.3 [facility] mg/dL HISTORICAL RESULTS Calcium 9.4 8.5 - 10.5 [facility] mg/dL HISTORICAL RESULTS Glucose 135 (H) 70 - 105 [facility] mg/dL HISTORICAL RESULTS BUN/Creatinine 6.0 CALC [facility] Ratio HISTORICAL RESULTS eGFR Calculated 64 >60 mL/min [facility] (Black HISTORICAL Reference) RESULTS eGFR Calculated 53 (L) >60 mL/min [facility] (Non Black HISTORICAL Reference) RESULTS Specimen (Source) Anatomical Location Collection Method / Collectio n Time Received Time / Laterality Volume 09/17/2013 09/17/2013 Doctor Unknown MD LABORATORY Performing Organization Address City/State/ZIP Code Phon e Number [facility] HISTORICAL RESULTS documented in this encounter Visit Diagnoses Not on filedocumented in this encounter Care Teams Utility Locator Relationship Specialty Start Date End Date No Ref-Primary, Physician PCP - General 06/21/13 12/13/13 Maged Aggarwal MD PCP - General Internal Medicine 12/14/13 03/16/15 [address] [place] [address] documented as of this encounter
--- OUTSIDE RECORDS SUMMARY | 2022-06-25 13:56 | XMS_ITS | Encounter Summary ---
:1965 Author Organization [facility] Address [address] [place] [address] Care Team Providers Name Role Phone Maged Aggarwal MD Primary Care Provider Reason for Visit Reason Onset Date Comments Refill Request 03/26/2014 Encounter Details Date Type Department Care Team Description 03/26/2014 Telephone [place] Joyce Doherty , Refill Request Neurosurgery CUPOLA MELTING SUPERVISOR REGISTERED DENTAL ASSISTANT RDA [address] [facility]. 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 Refill provided as surgery is scheduled April 15, 2014. Patient denied further questions. 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
--- OUTSIDE RECORDS SUMMARY | 2022-06-25 13:56 | XMS_ITS | Encounter Summary ---
:1965 Author Organization [place] Address [address] [place] [address] Care Team Providers Name Role Phone No Ref-Primary, Physician Primary Care Provider [phone] Reason for Visit (Routine) - Closed Specialty Diagnoses / Procedures Referred By Contact Refer red To Contact Sleep Medicine Diagnoses consult 08/08/2013 Sleep Center Procedures PSG SPLIT [address] [facility] [address] [place] [address] Phone: Referral ID Status Reason Start Date Expiration Date Visits Requ ested Visits Authorized [id number] Closed 08/17/2013 08/17/2014 1 1 Encounter Details Date Type Department Care Team Description 09/07/2013 Therapy Visit [facility] Feng Daigle Sleep disturbance, Sleep Centers [place] Cain MD unspecified [address] [facility] [address] [place] [address] [address] [place] [address] [place] [address] Social History Tobacco Use Types Packs/Day Years Used Date Smoking Tobacco: Former Cigarettes Quit : 06/26/2011 Smokeless Tobacco: Never Alcohol Use Standard Drinks/Week Comments No 0 (1 standard drink = 0.6 oz pure alcoho l) Sex Assigned at Date Recorded Male 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 Feng Dueñas is a 48-year-old gentleman with a history of symptoms concerning for sleep disordered breathing in the setting of cardiovascular disease. This overnight PSG was performed on 09/07/2013. The patient's sleep architecture demonstrated a sleep efficiency of 93% with the patient sleeping 396/423 minutes. All stages of sleep were seen; however, REM supine sleep was not seen. The patient did not demonstrate evidence suggestive of clinically significant sleep-disordered breathing. The patient's apnea-hypopnea index was 2.4 events an hour, respiratory disturbance index was also 2.4 events an hour. The patient did have intermittent oxygen desaturations, but did not meet criteria for sleep-related hypoxemia. Please note that there was some trouble with artifact from the oximetry, but overall the vast majority of the oximetry data was good. Periodic limb movements were monitored throughout the course of the night, they did not reach a level of clinical significance. REM motor tone evaluation did not demonstrate excessive REM motor activity, nor were any dream enactment behaviors noted. CARDIAC MONITORING: One EKG lead, in particular lead II, demonstrated a narrow QRS complex, precededby P waves, very consistent with sinus rhythm. ASSESSMENT: Mr. Dueñas is a 48-year-old gentleman with a history of cardiovascular disease. This study would suggest that he does not have clinically significant sleep apnea. He did sleep supine for a short period of time in non-REM sleep; however, REM sleep supine was not seen and thus this could plausibly be a slight underestimation of the patient's disease burden if he does actually sleep supine at home. Otherwise, this study should provide some reassurance that the patient does not appear to have clinically significant sleep-disordered breathing. The patient also advised to optimize the duration and circadian timing of sleep and never operate a motor vehicle while sleepy. We look forward to seeing him again. It is a great privilege being asked to participate in his care. DIAGNOSTIC CODE 780.59. FENG DAIGLE MD MT: nr Name: FENG DUEÑAS MRN: [id number] Account: [id number] : 1965 Visit Date: 09/07/2013 Document: [id number] T EVALUATION SUPERVISOR Chantelle Jacobs - 09/08/2013 5:32 AM CST Diagnostic PSG performed. Pt did not meet CPAP criteria. T EVALUATION SUPERVISOR documented in this encounter Plan of Treatment Not on filedocumented as of this encounter Procedures Procedure Name Priority Date/Time Associated Diagnosis Comme nts SLEEP STUDY - HIM SCAN Routine 09/10/2013 POND SUPERVISOR COMPREHENSIVE SLEEP Routine 09/07/2013 8:41 PM Sleep distu rbance, TRUST EVALUATION SUPERVISOR unspecified documented in this encounter Results Sleep Study - HIM Scan (09/10/2013) Narrative This result has an attachment that is no t available. Feng Daigle MD PFT ORDERABLES documented in this encounter Visit Diagnoses Diagnosis Sleep disturbance, unspecified documented in this encounter Care Teams Tank Charger Relationship Specialty Start Date End Date No Ref-Primary, Physician PCP - General 06/21/13 12/13/13 documented as of this encounter
--- OUTSIDE RECORDS SUMMARY | 2022-06-25 13:56 | XMS_ITS | Encounter Summary ---
:1965 Author Organization [place] Address [address] [place] [address] Care Team Providers Name Role Phone No Ref-Primary, Physician Primary Care Provider [phone] Maged Aggarwal MD Primary Care Provider Leticia Armendariz MD Primary Care Provider Nahum Lemus MD Unavailable Karuna Ramirez MD Unavailable [phone] Gloria Karime Irina DO Unavailable Tito Almonte MD Unavailable Leticia Armendariz MD Unavailable Leticia Armendariz MD Unavailable Ro Reyna NP Unavailable Kedar Rodriguez MD Unavailable Leticia Armendariz MD Unavailable Cristian Cooper MD Unavailable Torsten Rodriguez MD Unavailable Annabelle Shields CNP Unavailable Encounter Details Date Type Department Care Team Description 08/21/2013 Office Visit-[facility] Karuna Keane MD [address] [facility] [address] [place] [id number] [address] [phone] [place] [id number] (Wo rk) Social History Tobacco Use Types Packs/Day Years Used Date Smoking Tobacco: Former Cigarettes Quit : 06/26/2011 Alcohol Use Standard Drinks/Week Comments No 0 (1 standard drink = 0.6 oz pure alcoho l) Sex Assigned at Date Recorded 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 DATE: 08/21/2013 LILIANA DUEÑAS DATE OF : 1965 AGE: [age] years old Referring Physician: IKER FANG CURRENT DIAGNOSES 1. - Chest Pain Precordial, 786.51 2. - Atrial Fibrillation, 427.31 3. Hematoma any artery, 998.1 4. Injury To Blood Vessels Of Unspecified Site, 904.9 ALLERGIES NKDA MEDICATIONS (prior to changes made today) 1. amlodipine 5 mg tablet, 1 p.o. daily 2. creatine monohydrate 5,000 mg powder in packet 3. DHEA 50 mg capsule, 1 p.o. daily 4. losartan 50 mg tablet, 1 p.o. daily 5. Prilosec 20 mg capsule,delayed release(DR/EC), 1 p.o. daily 6. protein Powder, Dose/instruction UNKNOWN CHIEF COMPLAINTS Cardiac Assessment, review labs HISTORY OF PRESENT ILLNESS This is a follow-up visit. SUBJECTIVE: Mr. Dueñas is a pleasant 48-year-old gentleman with an episode of atrial fibrillation, requiring cardioversion in the emergency room. He had vague complaints of chest discomfort at the timeand underwent a coronary angiogram showing no obstructive disease. His CHADS2 score was felt to be low, and he was not placed on anticoagulation. He does have hypertension, treated with amlodipine and losartan. He has chronic fatigue and a sleep study coming up. He does have a rather avid weight lifting habit and is on a number of supplements and eats a very high protein diet. He had been doing well since his last visit with Senia Patel until last at the end of a workout doing shrugs. He had a couple of minutes of palpitations. They were self limited. It did feel like an irregular tachycardia. he had no associated symptoms. He has otherwise no chest pain or shortness of breath, lightheadedness, syncope, presyncope, PND, orthopnea or pedal edema. We did evaluate his chemistries, which were done after eating a half of a dozen of eggs this morningand two cups of oatmeal. Of note, he has a dramatic protein intake to which we have been attributinghis mildly elevated creatinine. PAST HISTORY Past Medical Illnesses: previously healthy with no significant past history. Past Cardiac Illnesses: atrial fibrillation Cardiology Procedures-NonInvasive: echocardiogram Jun 2013 Vascular Procedures-Noninvasive: limited iliac and lower extremity arterial and Venous duplex , = neg for pseudoaneurysm or AVfistula, resolving hematoma PMHx Echo Results: 06/17- Mild LVH, Mild tricuspid regurg. 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 INTEGUMENTARY denies any change in hair or nails, rashes, or skin lesions. EYES denies diplopia, history of glaucoma or visual field defects. EARS, NOSE, THROAT, MOUTH denies any hearing loss, epistaxis, hoarseness or difficulty speaking. RESPIRATORY positive for dyspnea CARDIOVASCULAR one episode of atrial fib last week x 5 min, denies chest discomfort ABDOMINAL history of GERD MUSCULOSKELETAL denies any history of arthritic symptoms or back problems. NEUROLOGICAL denies any history of recurrent headaches, strokes, TIA, or seizure disorder. PSYCHIATRIC sleep disturbance ENDOCRINE denies any history of thyroid disease or diabetes mellitus. HEMATOLOGICAL/IMMUNOLOGIC denies any food allergies, seasonal allergies, bleeding disorders or lymphadenopathy. TODAYS ORDERS ASSESSMENT/PLAN: A pleasant 48-year-old gentleman with no obstructive coronary disease, paroxysmal atrial fibrillation. He has a sleep study planned for September 07 and does do very heavy lifting. With respect to his paroxysmal atrial fibrillation, I would recommend he restart aspirin 81 mg a day. We will follow up his renal function, however, in three weeks' time as this could be potentially nephrotoxic. This is with a CHADS2 1 risk score remarkable for hypertension. I have discussed with him modifying his diet, such as cutting down the egg yolks in the eggs that heeats (he describes eating four dozen eggs a week). He has verbalized understanding and will replace it with egg whites. I have discussed the likely high protein load to be responsible for his elevated creatinine, which is probably not pathologic; however, I would have him discuss this an engineering intern formore thorough evaluation, and have encouraged him to establish care as soon as possible. We can repeat his creatinine fasting next time, which may reduce the creatinine if it is related only to the protein load. I will have him follow up with Senia in two months, with repeat labs at that point. Total time is 30 minutes, 25 in coordination, care, and counseling. 1. BMP 3 weeks 2. BMP 2 months- fasting 3. BMP 1 day 4. F/U with Senia Patel, P.A. 2 months 5. internal medicine consult in [place]- Briseyda Gonzalez or Jasen or Ayush Ramirez M.D. documented in this encounter Plan of Treatment Not on filedocumented as of this encounter Visit Diagnoses Not on filedocumented in this encounter Care Teams Survey Project Manager Relationship Specialty Start Date End Date No Ref-Primary, PCP - General 06/21/13 12/13/13 Physician Maged Aggarwal, PCP - General Internal Medicine 12/14/1308/19 MD [place], [place] [address] Leticia Armendariz, PCP - General Internal Medicine 03/17/15 Leticia Armendariz, PCP - Assigned PCP 06/30/14 MD [facility] [address] [place] [address] [id number] Nahum Lemus MD 09/16/16 [facility] [address] [place] [id number] Karuna Ramirez MD Cardiology 09/16/16 MD Erendira Karime Castro, Referring Physician Orthopedics 05/13/17 DO [facility] [address] [facility] [address] [place] [address] Tito Almonte MD MD Orthopedics 05/13/17 [address] [place], [place] [phone] Leticia Armendariz, Assigned PCP 06/30/14 01/06/19 [facility] [address] [place] [id number] Ro Reyna, Assigned PCP 01/07/19 [employer] [facility] [address] [place] [address] Kedar Rodriguez MD Assigned PCP 08/26/19 12/29/19 [address] [facility] [address] [place], [place] [address] Leticia Armendariz, Assigned PCP 12/30/19 02/07[facility]21 [facility] [address] [place] [phone] Cristian Cooper MD Assigned Heart and 06/27/20 07/11/[address], Vascular Provider [facility] [address] [place], [place] [phone] Torsten Rodriguez MD Assigned Musculoskeletal 08/24/20 02/19/[address] Provider [place], [place] [phone] Annabelle Shields, EDISON Assigned PCP 02/08/21 [address] [place] [place], [place] [phone] documented as of this encounter
--- OUTSIDE RECORDS SUMMARY | 2022-06-25 13:56 | XMS_ITS | Encounter Summary ---
:1965 Author Organization [facility] Address [address] [place] [address] Care Team Providers Name Role Phone No Ref-Primary, Physician Primary Care Provider [phone] Maged Aggarwal MD Primary Care Provider Leticia Armendariz MD Primary Care Provider Leticia Armendariz MD Unavailable Leticia Armendariz MD Unavailable Encounter Details Date Type Department Care Team Description 07/09/2013 Historic Results [facility] Heart Unknown, [facility] [address] [place] [address] Social History Tobacco Use Types Packs/Day Years Used Date Smoking Tobacco: Former Cigarettes Quit : 06/26/2011 Alcohol Use Standard Drinks/Week Comments No 0 (1 standard drink = 0.6 oz pure alcoho l) Sex Assigned at Date Recorded 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 Provider Scan IMG US ORDERABLES documented in this encounter Visit Diagnoses Not on filedocumented in this encounter Care Teams Acute Care Nurse Practitioner Relationship Specialty Start Date End Date No Ref-Primary, Physician PCP - General 06/21/13 12/13/13 Maged Aggarwal MD PCP - General Internal Medicine 12/14/13 03/16/15 [address] [place], [place] [phone] Leticia Armendariz MD PCP - General Internal Medicine 03/17/15 Leticia Armendariz MD PCP - Assigned PCP 06/30/14 [facility] [address] [place] [address] Leticia Armendariz MD Assigned PCP 06/30/14 01/06/19 [facility] [address] [place] [address] documented as of this encounter
--- OUTSIDE RECORDS SUMMARY | 2022-06-25 13:56 | XMS_ITS | Encounter Summary ---
:1965 Author Organization [place] Address [address] [place] [address] Care Team Providers Name Role Phone Maged Aggarwal MD Primary Care Provider Encounter Details Date Type Department Care Team Description 12/27/2013 Orders Only [facility] Non specific abnormal [facility] results of liver function [address] [place] [address] Social History Tobacco Use Types Packs/Day Years Used Date Smoking Tobacco: Former Cigarettes Quit : 06/26/2011 Smokeless Tobacco: Never Alcohol Use Standard Drinks/Week Comments No 0 (1 standard drink = 0.6 oz pure alcoho l) Sex Assigned at Date Recorded 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 documented in this encounter Plan of Treatment Not on filedocumented as of this encounter Procedures Procedure Name Priority Date/Time Associated Diagnosis Comme nts FECAL COLORECTAL Routine 12/27/2013 11:00 Nonspecific abnormal Results for this CANCER SCREEN FIT AM CDT results of liver proced ure are in function study the results section. documented in this encounter Results Fecal colorectal cancer screen (FIT) (12/27/2013 11:00 AM CDT) Analysis Performed At [facility] Time Signature Occult Blood Negative NEG [facility] Scn FIT [facility] Specimen Anatomical Collection Method Collection Time Receive d Time (Source) Location / / Volume Laterality Stool specimen 12/27/2013 11:00 4 (specimen) AM CDT 11:01 AM CDT Maged Aggarwal MD LAB - STOOLS ORDERABLES Performing Organization Address City/State/ZIP Code Phon e Number [facility] [address] [place] [address] [facility] documented in this encounter Visit Diagnoses Diagnosis Nonspecific abnormal results of liver fu nction study documented in this encounter Care Teams President + Publisher Relationship Specialty Start Date End Date Maged Aggarwal MD PCP - General Internal Medicine 12/14/13 03/16/15 [address] [place], [place] [address] documented as of this encounter
--- OUTSIDE RECORDS SUMMARY | 2022-06-25 13:56 | XMS_ITS | Encounter Summary ---
:1965 Author Organization [facility] Address [address] [place] [address] Care Team Providers Name Role Phone No Ref-Primary, Physician Primary Care Provider Maged Aggarwal MD Primary Care Provider Leticia Armendariz MD Primary Care Provider Nahum Lemus MD Unavailable Karuna Ramirez MD Unavailable [phone] Gloria Karime Irina DO Unavailable Tito Almonte MD Unavailable Leticia Armendariz MD Unavailable Leticia Armendariz MD Unavailable Ro Reyna NP Unavailable Kedar Rodriguez MD Unavailable Leticia Armendariz MD Unavailable Cristian Cooper MD Unavailable Torsten Rodriguez MD Unavailable Annabelle Shields CNP Unavailable Encounter Details Date Type Department Care Team Description 08/21/2013 Office Visit-[facility] Karuna Keane MD [address] [facility] [address] [place] [phone] [address] [phone] [place] [id number] (Wo rk) Social History Tobacco Use Types Packs/Day Years Used Date Smoking Tobacco: Former Cigarettes Quit : 06/26/2011 Alcohol Use Standard Drinks/Week Comments No 0 (1 standard drink = 0.6 oz pure alcoho l) Sex Assigned at Date Recorded Male 08/13/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 Karuna Ramirez M.D. documented in this encounter Plan of Treatment Not on filedocumented as of this encounter Visit Diagnoses Not on filedocumented in this encounter Care Teams Tank House Operator Helper Relationship Specialty Start Date End Date No Ref-Primary, PCP - General 06/21/13 12/13/13 Physician Maged Aggarwal, PCP - General Internal Medicine 12/14/1308/19 [address] [place], [place] [id number] Leticia Armendariz, PCP - General Internal Medicine 03/17/15 Leticia Armendariz, PCP - Assigned PCP 06/30/14 [place] [address] [place] [address] [id number] Nahum Lemus MD 09/16/16 [place] [facility] [address] [facility] [address] [place] [id number] Karuna Ramirez MD Cardiology 09/16/16 MD [place] Karime Castro, Referring Physician Orthopedics 05/13/17 DO [facility] [address] [id number] Tito Almonte MD MD Orthopedics 05/13/17 [address] [facility] [address] [place], [place] [address] Leticia Armendariz, Assigned PCP 06/30/14 01/06/19 [place] [address] [place] [address] Ro Reyna, Assigned PCP 01/07/19 INTERNATIONAL MARKETING SPECIALIST [address] [place], [place] [address] Kedar Rodriguez MD Assigned PCP 08/26/19 12/29/[address] [place], [place] [id number] Leticia Armendariz, Assigned PCP 12/30/19 02/07/21 [place] [address] [place] [address] Cristian Cooper MD Assigned Heart and 06/27/20 07/11/21 [address], Vascular Provider [address] [place], [place] [address] Torsten Rodriguez MD Assigned Musculoskeletal 08/24/20 02/19/[address] [facility] [address] Provider [place], [place] [address] Annabelle Shields, EDISON Assigned PCP 02/08/21 [address] [place], [place] [id number] documented as of this encounter
--- OUTSIDE RECORDS SUMMARY | 2022-06-25 13:56 | XMS_ITS | Encounter Summary ---
:1965 Author Organization [facility] Address [address] [place] [address] Care Team Providers Name Role Phone No Ref-Primary, Physician Primary Care Provider [phone] Maged Aggarwal MD Primary Care Provider Leticia Armendariz MD Primary Care Provider Nahum Lemus MD Unavailable Karuna Ramirez MD Unavailable [phone] Gloria Daniajeanie Arevalo DO Unavailable Tito Almonte MD Unavailable Leticia Armendariz MD Unavailable Leticia Armendariz MD Unavailable Ro Reyna NP Unavailable Kedar Rodriguez MD Unavailable Leticia Armendariz MD Unavailable Cristian Cooper MD Unavailable Torsten Rodriguez MD Unavailable Annabelle Shields SLICING MACHINE OPERATOR Unavailable Encounter Details Date Type Department Care Team Description 07/30/2013 Office Visit-[facility] Heart Juan F Patel [facility] Tiana Perkins APRN SLICING MACHINE OPERATOR [address] 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 N.P. #[id number] DATE: 07/17/2013 LILIANA DUEÑAS DATE OF : 1965 AGE: [...] 6. protein Powder, Dose/instruction UNKNOWN CHIEF COMPLAINTS HTN HISTORY OF PRESENT ILLNESS Mr. Dueñas is a delightful 48-year-old gentleman who presents to Cardiology Clinic today for a follow-up visit. He has been seen by Dr. Ramirez. Historically he has had one episode of atrial fibrillation, which was cardioverted in the emergency room. He had some vague complaints of chest discomfort at that time and underwent coronary angiogram showing no obstructive disease. His CHADS score was thought to be low and he was not placed on anticoagulation. He does have hypertension treated with amlodipine and losartan. He has had issues with chronic fatigue and has a sleep study in the near future. He does participate in weight lifting and is on a number of supplements and eats a very high protein diet. At his last visit his blood pressure medications were titrated including initiation of losartan. He presents in clinic today for a follow-up visit and to review labs. Basic metabolic panel performed in our office showed a sodium of 140, potassium 4.4, BUN 17, creatinine 1.4 and GFR of 60. This appears relatively stable except for some mildly elevated creatinine. In clinic today Mr. Dueñas tells me he feels well. He has gotten back to the gym. He has had no recurrent episodes of palpitations. He has no light-headedness, dizziness, syncope or presyncope, edema or chest pain. In clinic today blood pressure remains elevated at 144/88, heart rate is 84 beats per minute, but regular, weight is 215 pounds. Please see below for remaining past medical history and physical examination. 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 RESPIRATORY positive for dyspnea CARDIOVASCULAR patient states he has some barely noticeable chest discomfort, denies light headedness dizziness, denies palpitations ABDOMINAL history of GERD, taking prilosec for 10 years and but now has a lot of heart burn since the ER visit MUSCULOSKELETAL denies any history of arthritic symptoms or back problems. NEUROLOGICAL denies any history of recurrent headaches, strokes, TIA, or seizure disorder. PSYCHIATRIC sleep disturbance ENDOCRINE denies any history of thyroid disease or diabetes mellitus. HEMATOLOGICAL/IMMUNOLOGIC denies any food allergies, seasonal allergies, bleeding disorders or lymphadenopathy. PHYSICAL EXAMINATION CONSTITUTIONAL cooperative, alert and oriented,well developed, well nourished, in no acute distress. SKIN warm and dry to touch, no apparent skin lesions, or masses noted. HEAD normocephalic, atraumatic EYES Pupils equal and round, conjunctivae and lids unremarkable, sclera white, no xanthalasma ENT no pallor or cyanosis, dentition good CARDIAC S1, S2 regular EXTREMITIES & BACK no deformities, clubbing, cyanosis, erythema or edema observed. There are no spinal abnormalities noted. Normal muscle strength and tone. NEUROLOGICAL no gross motor deficits noted, affect appropriate, oriented to time, person and place. MEDICATIONS UPDATED/STARTED TODAY: creatine monohydrate 5,000 mg powder in packet MEDICATIONS REFILLED/STOPPED TODAY: creatinine (bulk) 100 % Powder Dose/instruction UNKNOWN #0 (Zero) Physician Order IMPRESSIONS/PLAN 1. Single episode of atrial fibrillation, which was cardioverted in the emergency room. He has had no symptoms since that time. Is not on full anticoagulation other than aspirin because of a low CHADS score. He was quite symptomatic with his atrial fibrillation and he has had no further symptoms. He has been wearing an event monitor, which has shown no atrial fibrillation. 2. Hypertension with elevated blood pressure in clinic today. We will plan him on amlodipine in addition to his losartan. We will need to keep a close eye on his renal function as well. 3. Fatigue with a sleep study in the near future. 4. Mild renal insufficiency. This appears to be stable for him. Maybe in part due to his high protein diet, although we should watch this closely given his losartan and hypertension. I have advised that he consider cutting back on the protein in his diet, as he is eating upwards of 300 grams a day. Hestates he will not be on this intermediate, but prefers to continue it in the short term. Senia Patel. N.P. documented in this encounter Plan of Treatment Not on filedocumented as of this encounter Visit Diagnoses Not on filedocumented in this encounter Care Teams Lead Clinical Research Coordinator Relationship Specialty Start Date End Date No Ref-Primary, PCP - General 06/21/13 12/13/13 Physician Maged Aggarwal, PCP - General Internal Medicine 12/14/1308/19 [place] [address] Leticia Armendariz, PCP - General Internal Medicine 03/17/15 Leticia Armendariz, PCP - Assigned PCP 06/30/14 MD [facility] [address] [place] [address] Nahum Lemus MD 09/16/16 [place] [facility] [id number] [facility] [place] [address] Karuna Ramirez MD Cardiology 09/16/16 MD [place] Karime Castro, Referring Physician Orthopedics 05/13/17 DO [facility] [address] [facility] [address] [place] [address] Tito Almonte MD MD Orthopedics 05/13/[address] [place] [address] Leticia Armendariz, Assigned PCP 06/30/14 01/06/19 MD [facility] [address] [place] [address] [id number] Ro Reyna, Assigned PCP 01/07/19 WELL HEAD PUMPER [address] [place] [address] Kedar Rodriguez MD Assigned PCP 08/26/19 12/29/19 [address] [facility] [address] [place] [address] Leticia Armendariz, Assigned PCP 12/30/19 02/07/21 [facility] [address] [place] [address] Cristian Cooper MD Assigned Heart and 06/27/20 07/11/21 [address], Vascular Provider [address] [place] [address] Torsten Rodriguez MD Assigned Musculoskeletal 08/24/20 02/19/22 909 [place], [place] [address] Annabelle Shields CNP Assigned PCP 02/08/21 [address] [place], [place] [phone] documented as of this encounter
--- OUTSIDE RECORDS SUMMARY | 2022-06-25 13:56 | XMS_ITS | Encounter Summary ---
:1965 Author Organization [facility] Address [address] [place] [address] Care Team Providers Name Role Phone Maged Aggarwal MD Primary Care Provider Reason for Visit Reason Comments Pre-Op Exam neck surgery on 04/15. pt nee ds refill for Chantix Encounter Details Date Type Department Care Team Description 04/05/2014 Office Visit [facility] Leticia Armendariz g eneral physical exam (Primary Dx); Clinic Demarco Bender MD Tobacco use disorder [address] [place] [facility] [address] [place] [address] [phone] Social History Tobacco Use Types Packs/Day Years Used Date Smoking Tobacco: Every Day Cigarettes L ast attempted to quit: 06/26/2011 Smokeless Tobacco: Never Alcohol Use Standard Drinks/Week Comments No 0 (1 standard drink = 0.6 oz pure alcoho l) Sex Assigned at Date Recorded 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 Last Filed Vital Signs Vital Sign Reading Time Taken Comments Blood Pressure 102/76 04/05/2014 10:48 AM CDT Pulse 68 04/05/2014 10:48 AM CDT Temperature 36.9 ??C (98.5 ??F) 04/05/2014 10:48 AM CDT Respiratory Rate - - Oxygen Saturation 97% 04/05/2014 10:48 AM CDT Inhaled Oxygen Concentration - - Weight 90.9 kg (200 lb 6.4 oz) 04/05/2014 10:48 AM CDT Height - - Body Mass Index 28.75 03/19/2014 9:27 AM CDT documented in this encounter Patient Instructions Patient InstructionsDuLeticia chou MD - 04/05/2014 11:07 AM CDT You can reach your [facility] Care Team any time of the day by calling [phone]. This number will put you in touch with the 24 hour nurse line even if the clinic is closed. The clinic hours for [facility] are: Tuesday through 7am to 6pm Tuesday 7am to 5pm Tuesday 8am to 12p for Pediatrics only. To contact your Wheel Grinder please call [phone]. This is a direct number for your care team during clinic hours. [facility] is now open for your convenience: Tuesday through Tuesday 7:30am to 7pm Tuesday and Tuesday 9am to 3pm They are closed on all major holidays. documented in this encounter Progress Notes Leticia Armendariz MD - 04/05/2014 10:50 AM CDT [address] [address] Dept: [phone] PRE-OP EVALUATION: Today's date: 04/05/2014 Feng Dexterers (: 1965) presents for pre-operative evaluation assessment as requested by Dr. Sandoval. He requires evaluation and anesthesia risk assessment prior to undergoing surgery/procedure for treatment of cervical disc herniation . Proposed procedure: neck surgery Date of Surgery/ Procedure: 04/15/14 Time of Surgery/ Procedure: 8.2am Hospital/Surgical Facility: [facility] Fax number for surgical facility: [phone] Primary Physician: Maged Aggarwal Type of Anesthesia [...] cardiovascular risks for perioperative complications such as (TN, PE, VFib and 3?? AV Block): No [...] evaluation report is provided to requesting physician. [facility] Preop Guidelines 2013 documented in this encounter Nursing Notes María Elena Matamoros MA - 04/05/2014 10:49 AM CDT Chief Complaint Patient presents with ??? Pre-Op Exam neck surgery on 04/15. pt needs refill for Chantix Initial BP 102/76 Pulse 68 Temp(Src) 98.5 ??F (36.9 ??C) (Oral) Wt 200 lb 6.4 oz (90.901 kg) BMI 28.75 kg/m2 SpO2 97% Estimated body mass index is 28.75 kg/(m^2) as calculated from the following: Height as of 03/19/14: 5' 10 (1.778 m). Weight as of this encounter: 200 lb 6.4 oz (90.901 kg). BP completed using cuff size: regular María Elena Matamoros MA documented in this encounter Plan of Treatment Not on filedocumented as of this encounter Procedures Procedure Name Priority Date/Time Associated Comments Diagnosis HEMOGLOBIN Routine 04/05/2014 11:09 AM Preop general Results for this CDT physical exam procedure are in the results section. BASIC METABOLIC Routine 04/05/2014 11:09 AM Preop general Resu lts for this PANEL CDT physical exam procedure are in the results section. documented in this encounter Results Basic metabolic panel (04/05/2014 11:09 AM CDT) P athologist Signature Sodium 138 133 - 144 [facility] mmol/L [place] Potassium 4.0 3.4 - 5.3 [facility] mmol/L [place] Chloride 103 94 - 109 [facility] mmol/L [place] Carbon Dioxide 28 20 - 32 [facility] S mmol/L [place] Anion Gap 7 6 - 17 [facility] mmol/L [place] Glucose 73 70 - 99 [facility] mg/dL [place] Comment: Effective 04/03/2014, the reference range for this assay has changed to reflect new instrumentation/methodology. Urea Nitrogen 11 7 - 30 mg/dL [facility] [place] Comment: Effective 04/03/2014, the reference range for this assay has changed to reflect new instrumentation/methodology. Creatinine 1.19 0.66 - 1.25 mg/dL [facility] GFR Estimate 65 >60 mL/min/1.7m2 [facility] [place] Comment: Non GFR Calc GFR Estimate If Black 79 >60 mL/min/1.7m2 [facility] Comment: GFR Calc Calcium 9.5 8.5 - 10.1 mg/dL [facility] [place] Comment: Effective 04/03/2014, the reference range for this assay has changed to reflect new instrumentation/methodology. Specimen Anatomical Collection Method Collection Time Receive d Time (Source) Location / / Volume Laterality Blood specimen 04/05/2014 11:09 4 (specimen) AM CDT 11:11 AM CDT Leticia Armendariz MD LAB - BLOOD ORDERABLES Performing Organization Address City/State/ZIP Code Phon e Number [facility] [address] [place] [address] [facility] [address] [place], [place] [address] Hemoglobin (04/05/2014 11:09 AM CDT) P athologist Signature Hemoglobin 15.8 13.3 - 17.7 [facility] g/dL [facility] Specimen Anatomical Collection Method Collection Time Receive d Time (Source) Location / / Volume Laterality Blood specimen 04/05/2014 11:09 4 (specimen) AM CDT 11:11 AM CDT Leticia Armendariz MD LAB - BLOOD ORDERABLES Performing Organization Address City/State/ZIP Code Phon e Number [facility] [address] [place], [place] [address] [address] documented in this encounter Visit Diagnoses Diagnosis Preop general physical exam - Primary Other specified pre-operative examinatio n Tobacco use disorder documented in this encounter Care Teams Psych Assistant Relationship Specialty Start Date End Date Maged Aggarwal MD PCP - General Internal Medicine 12/14/13 03/16/15 [address] [place] [address] documented as of this encounter
--- OUTSIDE RECORDS SUMMARY | 2022-06-25 13:56 | XMS_ITS | Encounter Summary ---
:1965 Author Organization [facility] Address [address] [place] [address] Care Team Providers Name Role Phone No Ref-Primary, Physician Primary Care Provider [phone] Reason for Visit Reason Onset Date Comments Heart Problem 07/05/2013 Encounter Details Date Type Department Care Team Description 07/05/[address] [facility] Feng Orantes [facility], Heart Problem Centers [place] [address] [facility] [address] 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 Route to Dr Orantes for his review/order documented in this encounter Plan of Treatment Not on filedocumented as of this encounter Visit Diagnoses Not on filedocumented in this encounter Care Teams Fish And Wildlife Warden Relationship Specialty Start Date End Date No Ref-Primary, Physician PCP - General 06/21/13 12/13/13 documented as of this encounter
--- OUTSIDE RECORDS SUMMARY | 2022-06-25 13:56 | XMS_ITS | Encounter Summary ---
:1965 Author Organization [facility] Address [address] [place] [address] Care Team Providers Name Role Phone No Ref-Primary, Physician Primary Care Provider [phone] Reason for Visit Reason Onset Date Comments Call to schedule test 07/09/2013 sleep center-[facility] Encounter Details Date Type Department Care Team Description 07/09/2013 Telephone [facility] [place], Call to schedule test Sleep Centers Tiana Krishna MD (sleep [address] [facility] [address] [facility] [place] [address] [facility] [address] [place] [address] (Wo rk) Social History Tobacco Use Types Packs/Day Years Used Date Smoking Tobacco: Former Cigarettes Quit : 06/26/2011 Alcohol Use Standard Drinks/Week Comments No 0 (1 standard drink = 0.6 oz pure alcoho l) Sex Assigned at Date Recorded 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 Orantes) . Left v/m for pt to return our call to schedule appt. PUNCHER documented in this encounter Plan of Treatment Not on filedocumented as of this encounter Visit Diagnoses Not on filedocumented in this encounter Care Teams Risk Compliance Manager Relationship Specialty Start Date End Date No Ref-Primary, Physician PCP - General 06/21/13 12/13/13 documented as of this encounter
--- OUTSIDE RECORDS SUMMARY | 2022-06-25 13:56 | XMS_ITS | Encounter Summary ---
:1965 Author Organization [facility] Address [address] [place] [address] Care Team Providers Name Role Phone No Ref-Primary, Physician Primary Care Provider [phone] Reason for Visit Reason Comments Consult new to clinic, in for ER fol low-up Encounter Details Date Type Department Care Team Description 08/24/2013 Office Visit [facility] Yojana Aggarwal HTN (h ypertension) (Primary Dx); Clinic Demarco Suarez MD Atrial fibrillation status post cardiove rsion (H); [address] 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 Last Filed Vital Signs Vital Sign Reading Time Taken Comments Blood Pressure 116/70 08/24/2013 10:26 AM FINGERNAIL TECHNICIAN Pulse 92 08/24/2013 10:26 AM FINGERNAIL TECHNICIAN Temperature 37 ??C (98.6 ??F) 08/24/2013 10:26 AM FINGERNAIL TECHNICIAN Respiratory Rate - - Oxygen Saturation 97% 08/24/2013 10:26 AM FINGERNAIL TECHNICIAN Inhaled Oxygen Concentration - - Weight 96.6 kg (212 lb 14.4 oz) 08/24/2013 10:26 AM FINGERNAIL TECHNICIAN Height 175.3 cm (5' 9) 08/24/2013 10:26 AM FINGERNAIL TECHNICIAN Body Mass Index 31.44 08/24/2013 10:26 AM FINGERNAIL TECHNICIAN documented in this encounter Patient Instructions Patient InstructionsRach Bey - 08/24/2013 10:23 AM CST You can reach your [facility] Care Team any time of the day by calling [phone]. This number will put you in touch with the 24 hour nurse line even if the clinic is closed. The clinic hours for [facility] are: Tuesday through 7am to 6pm Tuesday 7am to 5pm Tuesday 8am to 12p for Pediatrics only. To contact your [facility] please call [phone]. This is a direct number for your care team during clinic hours. [facility] is now open for your convenience: Tuesday through Tuesday 7:30am to 7pm Tuesday and Tuesday 9am to 3pm They are closed on all major holidays. ERNAIL TECHNICIAN documented in this encounter Progress Notes Yojana Aggarwal MD - 08/24/2013 10:24 AM CST SUBJECTIVE: Feng Perez is a 48 year old male who presents to clinic today for the following health issues: ED/UC Followup: Facility: [facility] ER Date of visit: 06/26/2013 Reason for visit: A-FIb Current Status: Now has URI, sore throat, nausea otherwise fine with the A-fib, did have 1 episode about 1 week ago lasting 2-3 minutes Patient is seen for a follow up visit. Seen in ED for A fib, occurred with exercise, symptomatic with lightheadedness, SOB, CP. Had cardioversion with good result. No recurrence . Has had ECHO, angiogram, normal results. Planned for sleep study for possible ZENA, has h/o snoring. Lab work has shown slightly elevated creatinine, no h/o kidney disease. Has been diagnosed with HTN,started on medication. Has been exercising extensively, body building, keeping very high protein and calory diet for 2 years. Problem list and histories reviewed & adjusted, as indicated. Additional history: as documented Problem list, Medication list, Allergies, and Medical/Social/Surgical histories reviewed in EPIC andupdated as appropriate. ROS: C: NEGATIVE for fever, chills, change in weight INTEGUMENTARY/SKIN: NEGATIVE for worrisome rashes, moles or lesions E/M: NEGATIVE for ear, mouth and throat problems R: NEGATIVE for significant cough or SOB CV: NEGATIVE for chest pain, palpitations or peripheral edema GI: NEGATIVE for nausea, abdominal pain, heartburn, or change in bowel habits MUSCULOSKELETAL: NEGATIVE for significant arthralgias or myalgia HEME/ALLERGY/IMMUNE: NEGATIVE for bleeding problems OBJECTIVE: BP 116/70 Pulse 92 Temp 98.6 ??F (37 ??C) (Oral) Ht 5' 9 (1.753 m) Wt 212 lb 14.4 oz (96.571 kg) BMI 31.43 kg/m2 SpO2 97% Body mass index is 31.43 kg/(m^2). GENERAL: healthy, alert, well nourished, well hydrated, no distress HENT: ear canals- normal; TMs- normal; Nose- normal; Mouth- no ulcers, no lesions NECK: no tenderness, no adenopathy, no asymmetry, no masses, no stiffness; thyroid- normal to palpation RESP: lungs clear to auscultation - no rales, no rhonchi, no wheezes CV: regular rates and rhythm, normal S1 S2, no S3 or S4 and no murmur, no click or rub - ABDOMEN: soft, no tenderness, no hepatosplenomegaly, no masses, normal bowel sounds MS: extremities- no gross deformities noted, no edema SKIN: no suspicious lesions, no rashes ASSESSMENT/PLAN: 1. HTN (hypertension) (401.9) *UA reflex to Microscopic and Culture, Microalbumin quantitative random urine 2. Atrial fibrillation status post cardioversion (997.1, 427.31) 3. CARDIOVASCULAR SCREENING; LDL GOAL LESS THAN 130 (V81.2) Assess kidney function, possible elevated creatinine from increased muscle mass and significant protein intake. Cont BP medications. Follow up with cardiology Await sleep study result See Patient Instructions YOJANA AGGARWAL MD [facility] ERNAIL TECHNICIAN documented in this encounter Nursing Notes 08/24/2013 10:40 AM CST >> RACH BEY Beulah Aug 24, 2013 10:28 AM Patient presents with: Consult - new to clinic, in for ER follow-up Initial BP 116/70 Pulse 92 Temp 98.6 ??F (37 ??C) (Oral) Ht 5' 9 (1.753 m) Wt 212 lb 14.4 oz (96.571 kg) BMI 31.43 kg/m2 SpO2 97% Estimated Body mass index is 31.43 kg/(m^2) as calculated from the following: Height as of this encounter: 5' 9(1.753 m). Weight as of this encounter: 212 lb 14.4 oz(96.571 kg).. BP completed using cuff size: large documented in this encounter Miscellaneous Notes Addendum Note - Johnson Amanda - 08/24/2013 2:29 PM FINGERNAIL TECHNICIAN Addended by: JOHNSON AMANDA on: 08/24/2013 02:29 PM Modules accepted: Orders ERNAIL TECHNICIAN Addendum Note - Yojana Aggarwal MD - 08/24/2013 11:22 AM FINGERNAIL TECHNICIAN Addended by: YOJANA AGGARWAL on: 08/24/2013 11:22 AM Modules accepted: Orders ERNAIL TECHNICIAN documented in this encounter Plan of Treatment Not on filedocumented as of this encounter Visit Diagnoses Diagnosis HTN (hypertension) - Primary Unspecified essential hypertension Atrial fibrillation status post cardiove rsion (H) CARDIOVASCULAR SCREENING; LDL GOAL LESS THAN 130 documented in this encounter Care Teams Casino Assistant Manager Relationship Specialty Start Date End Date No Ref-Primary, Physician PCP - General 06/21/13 12/13/13 documented as of this encounter
--- OUTSIDE RECORDS SUMMARY | 2022-06-25 13:56 | XMS_ITS | Encounter Summary ---
:1965 Author Organization [facility] Address [address] [place] [address] Care Team Providers Name Role Phone No Ref-Primary, Physician Primary Care Provider [phone] Encounter Details Date Type Department Care Team Description 07/09/2013 Results Only [facility] MD Erendira [address] [facility] [place] [id number] [facility] [phone] [place] [address] (Wo rk) Social History Tobacco Use Types Packs/Day Years Used Date Smoking Tobacco: Former Cigarettes Quit : 06/26/2011 Alcohol Use Standard Drinks/Week Comments No 0 (1 standard drink = 0.6 oz pure alcoho l) Sex Assigned at Date Recorded 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 documented in this encounter Results US Lower Extremity Arterial Duplex Right (07/09/2013 2:51 PM GAS ENGINE OPERATOR GENERATORS) Anatomical Region Laterality Modality Lower Extremity Other Specimen (Source) Anatomical Collection Method Collection Time Re ceived Time Location / / Volume Laterality 07/09/2013 2:51 PM GAS ENGINE OPERATOR GENERATORS Narrative 07/09/2013 3:46 PM GAS ENGINE OPERATOR GENERATORS [facility]CRED[facility]ASCULAR LABORATORY LIMITED ILIAC AND LOWER EXTREMITY ARTERI AL AND VENOUS DUPLEX ULTRASOUND Patient: FENG DUEÑAS Date: 07/09/2013 2:51 PM : 1965 Ordering Provider: Linda Ramirez Primary Care Physician: LINDA GROSS Interpreting Physician: JERAMY MATAMOROS MD, MEnrrique Technologist: Densise Lane RDMS ??RVT INDICATION: Injury to blood vessel unspe cified site. CONCLUSION: 1. No evidence of pseudoaneurysm or A-V fistula in the right groin. 2. Resolving hematoma (4.0 cm X 0.6 cm) seen anterior to the right proximal SFA COMPARISON: No previous study was available for comp arison. Exam description and findings: A Limited noninvasive arterial and venou s ultrasound was performed using duplex imaging with spectral and c olor Doppler. Right external iliac artery distal peak systolic velocity 77 cm/s. Right common femoral artery peak systoli c velocity 81 cm/s. Right deep femoral artery peak systolic velocity 60 cm/s. Right Superficial femoral artery peak sy stolic velocity 73 cm/s STUDY QUALITY: Excellent [facility] Dedicated to Excellence in Vascular Care To schedule a Vascular Lab study or cons ultation Call [phone]. OPTION 2. JERAMY MATAMOROS MD Procedure Note Jeramy Matamoros MD - 07/09/2013Formatt ing of this note might be different from the original. [facility] ACCREDITED [facility]ASCULAR LABORATORY LIMITED ILIAC AND LOWER EXTREMITY ARTERI AL AND VENOUS DUPLEX ULTRASOUND Patient: FENG DUEÑAS Date: 07/09/2013 2:51 PM : 1965 Ordering Provider: Linda Ramirez Primary Care Physician: LINDA GROSS Interpreting Physician: JERAMY MATAMOROS MD, M.D. Technologist: Denisse Lane RDMS RVT INDICATION: Injury to blood vessel unspe cified site. CONCLUSION: 1. No evidence of pseudoaneurysm or A-V fistula in the right groin. 2. Resolving hematoma (4.0 cm X 0.6 cm) seen anterior to the right proximal SFA COMPARISON: No previous study was available for comp arison. Exam description and findings: A Limited noninvasive arterial and venou s ultrasound was performed using duplex imaging with spectral and c olor Doppler. Right external iliac artery distal peak systolic velocity 77 cm/s. Right common femoral artery peak systoli c velocity 81 cm/s. Right deep femoral artery peak systolic velocity 60 cm/s. Right Superficial femoral artery peak sy stolic velocity 73 cm/s STUDY QUALITY: Excellent [facility] Vascular Diagnostic Clinic and Laboratory Dedicated to Excellence in Vascular Care To schedule a Vascular Lab study or cons ultation Call [phone]. OPTION 2. JERAMY MATAMOROS MD Linda Ramirez MD IMG ORDERABLES documented in this encounter Visit Diagnoses Not on filedocumented in this encounter Care Teams Data Librarian Relationship Specialty Start Date End Date No Ref-Primary, Physician PCP - General 06/21/13 12/13/13 documented as of this encounter
--- OUTSIDE RECORDS SUMMARY | 2022-06-25 13:56 | XMS_ITS | Encounter Summary ---
:1965 Author Organization [facility] Address [address] [place] [address] Care Team Providers Name Role Phone No Ref-Primary, Physician Primary Care Provider [phone] Maged Aggarwal MD Primary Care Provider Encounter Details Date Type Department Care Team Description 07/09/2013 Historic Results [facility] Heart Unknown, Doct or, [address] [place] [address] Social History Tobacco Use Types Packs/Day Years Used Date Smoking Tobacco: Former Cigarettes Quit : 06/26/2011 Alcohol Use Standard Drinks/Week Comments No 0 (1 standard drink = 0.6 oz pure alcoho l) Sex Assigned at Date Recorded Male 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 documented in this encounter Results (ABNORMAL) G[facility] Historical Results (07/09/2013 12:00 AM DIRECTOR BUSINESS DEVELOPMENT) athologist Signature Sodium 142 136 - 145 [facility] mmol/L HISTORICAL RESULTS Potassium 5.1 3.5 - 5.1 [facility] mmol/L HISTORICAL RESULTS Chloride 102 98 - 107 [facility] mmol/L HISTORICAL RESULTS Carbon Dioxide 31 (H) 23 - 29 [facility] mmol/L HISTORICAL RESULTS Anion Gap Ratio 14 RATIO [facility] HISTORICAL RESULTS Urea Nitrogen 14 7 - 30 [facility] mg/dL HISTORICAL RESULTS Creatinine 1.3 0.7 - 1.3 [facility] mg/dL HISTORICAL RESULTS Calcium 9.6 8.5 - 10.5 [facility] mg/dL HISTORICAL RESULTS Glucose 87 70 - 105 [facility] mg/dL HISTORICAL RESULTS BUN/Creatinine 11.1 CALC [facility] Ratio HISTORICAL RESULTS eGFR Calculated 79 >60 mL/min [facility] (Black HISTORICAL Reference) RESULTS eGFR Calculated 65 >60 mL/min [facility] (Non Black HISTORICAL Reference) RESULTS Specimen (Source) Anatomical Location Collection Method / Collectio n Time Received Time / Laterality Volume 07/09/2013 07/09/2013 Doctor Unknown MD LABORATORY Performing Organization Address City/State/ZIP Code Phon e Number [facility] HISTORICAL RESULTS documented in this encounter Visit Diagnoses Not on filedocumented in this encounter Care Teams Electronics Parts Sales Representative Relationship Specialty Start Date End Date No Ref-Primary, Physician PCP - General 06/21/13 12/13/13 Maged Aggarwal MD PCP - General Internal Medicine 12/14/13 03/16/15 [address] [place] [address] documented as of this encounter
--- OUTSIDE RECORDS SUMMARY | 2022-06-25 13:56 | XMS_ITS | Encounter Summary ---
:1965 Author Organization [facility] Address [address] [place] [address] Care Team Providers Name Role Phone Maged Aggarwal MD Primary Care Provider Reason for Referral Consultation - Closed Specialty Diagnoses / Procedures Referred By Contact Refer red To Contact Orthopedics and Sports Diagnoses Cervical disc herniation Leticia Armendariz [facility] MD [facility] [address] [address] [address] [place] [address] Phone: [phone] Fax: [phone] Referral ID Status Reason Start Date Expiration Date Visits Requ ested Visits Authorized [id number] Closed 03/08/2014 09/04/2014 1 1 Reason for Visit Reason Onset Date Comments Results 03/08/2014 Encounter Details Date Type Department Care Team Description 03/08/2014 Telephone [facility] Leticia Wilson MD Results [address] [place] [phone] [place], [place] [address] (Wo rk) Social History Tobacco Use Types Packs/Day Years Used Date Smoking Tobacco: Every Day Cigarettes L ast attempted to quit: 06/26/2011 Smokeless Tobacco: Never Alcohol Use Standard Drinks/Week Comments No 0 (1 standard drink = 0.6 oz pure alcoho l) Sex Assigned at Date Recorded 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 Referral and MRI results mailed to pt. Telephone Encounter - Leticia Armendariz MD - 03/08/2014 4:30 PM CDT Please call the patient to let him know the MRI results reveal a disc herniation. He should be followed up by a neuroscience specialist. Please also mail out a copy of the MRI and referral documented in this encounter Plan of Treatment Pending Results Name Type Priority Associated Diagnoses Date/Ti ma ORTHO STOCKKEEPER REFERRAL Referral Routine Cervical disc he rniation 03/11/2014 documented as of this encounter Visit Diagnoses Diagnosis Cervical disc herniation - Primary Displacement of cervical intervertebral disc without myelopathy documented in this encounter Care Teams Melter Clerk Relationship Specialty Start Date End Date Maged Aggarwal MD PCP - General Internal Medicine 12/14/13 03/16/15 [address] [place] [address] documented as of this encounter
--- OUTSIDE RECORDS SUMMARY | 2022-06-25 13:56 | XMS_ITS | Encounter Summary ---
:1965 Author Organization [facility] Address [address] [place] [address] Care Team Providers Name Role Phone No Ref-Primary, Physician Primary Care Provider [phone] Maged Aggarwal MD Primary Care Provider Encounter Details Date Type Department Care Team Description 07/17/[address] 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 documented in this encounter Results (ABNORMAL) [facility] Historical Results (07/17/2013 12:00 AM RUSH SEATER) Analysis Performed At Patho logist Time Signature Sodium 140 136 - 145 [facility] mmol/L HISTORICAL RESULTS Potassium 4.4 3.5 - 5.1 [facility] mmol/L HISTORICAL RESULTS Chloride 103 98 - 107 [facility] mmol/L HISTORICAL RESULTS Carbon Dioxide 29 23 - 29 [facility] mmol/L HISTORICAL RESULTS Anion Gap Ratio 12 RATIO [facility] HISTORICAL RESULTS Urea Nitrogen 17 7 - 30 [facility] mg/dL HISTORICAL RESULTS Creatinine 1.4 (H) 0.7 - 1.3 [facility] mg/dL HISTORICAL RESULTS Calcium 9.3 8.5 - 10.5 [facility] mg/dL HISTORICAL RESULTS Glucose 117 (H) 70 - 105 [facility] mg/dL HISTORICAL RESULTS BUN/Creatinine 12.6 CALC [facility] Ratio HISTORICAL RESULTS eGFR Calculated 73 >60 mL/min [facility] (Black HISTORICAL Reference) RESULTS eGFR Calculated 60 >60 mL/min [facility] (Non Black HISTORICAL Reference) RESULTS Specimen (Source) Anatomical Location Collection Method / Collectio n Time Received Time / Laterality Volume 07/17/2013 07/17/2013 Doctor Unknown MD LABORATORY Performing Organization Address City/State/ZIP Code Phon e Number [facility] HISTORICAL RESULTS documented in this encounter Visit Diagnoses Not on filedocumented in this encounter Care Teams Facilities Flight Check Pilot Relationship Specialty Start Date End Date No Ref-Primary, Physician PCP - General 06/21/13 12/13/13 Maged Aggarwal MD PCP - General Internal Medicine 12/14/13 03/16/[address] [place] [address] documented as of this encounter
--- OUTSIDE RECORDS SUMMARY | 2022-06-25 13:56 | XMS_ITS | Encounter Summary ---
:1965 Author Organization [facility] Address [address] [place] [address] Care Team Providers Name Role Phone No Ref-Primary, Physician Primary Care Provider [phone] Encounter Details Date Type Department Care Team Description 08/27/2013 Orders Only [facility] Sle ep disturbance, unspecified (Primary Dx); [facility] A-fib (H); [address] HTN (hypertension); [place] [address] Atrial fibrillation status p ost cardioversion (H); [phone] Chest pain, pre cordial Social History Tobacco Use Types Packs/Day Years Used Date Smoking Tobacco: Former Cigarettes Quit : 06/26/2011 Smokeless Tobacco: Never Alcohol Use Standard Drinks/Week Comments No 0 (1 standard drink = 0.6 oz pure alcoho l) Sex Assigned at Date Recorded Male 08/13/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 documented as of this encounter Miscellaneous Notes Addendum Note - Brigida Nguyen - 08/27/2013 8:53 AM GEODETIC SURVEYOR TECHNOLOGIST Addended by: BRIGIDA NGUYEN on: 08/27/2013 08:53 AM Modules accepted: Orders ETIC SURVEYOR TECHNOLOGIST documented in this encounter Plan of Treatment Not on filedocumented as of this encounter Procedures Procedure Name Priority Date/Time Associated Diagnosis Comme nts ICING MIXER COMPREHENSIVE Routine 08/27/2013 8:27 Sleep disturbance, SLEEP AM GEODETIC SURVEYOR TECHNOLOGIST unspecified A-fib (H) URINE MICROSCOPIC Routine 08/27/2013 8:23 Results for this AM GEODETIC SURVEYOR TECHNOLOGIST procedure are i n the results section. UA MACROSCOPIC WITH Routine 08/27/2013 8:23 HTN (hypertension) Results for this REFLEX TO MICROSCOPIC AM GEODETIC SURVEYOR TECHNOLOGIST proced ure are in AND CULTURE the results section. ALBUMIN RANDOM URINE Routine 08/27/2013 8:23 HTN (hypertension ) Results for this QUANTITATIVE AM GEODETIC SURVEYOR TECHNOLOGIST procedure are i n the results section. COMPREHENSIVE Routine 08/27/2013 8:23 HTN (hypertensio n) Results for this METABOLIC PANEL AM GEODETIC SURVEYOR TECHNOLOGIST Atrial fibrillation proce dure are in status post the results cardioversion (H) section. documented in this encounter Results (ABNORMAL) Urine Microscopic (08/27/2013 8:23 AM GEODETIC SURVEYOR TECHNOLOGIST) athologist Signature WBC Urine O - 2 0 - 2 /HPF [facility] RBC Urine O - 2 0 - 2 /HPF [facility] Bacteria Urine Few (A) NEG /HPF [facility] Specimen Anatomical Collection Method Collection Time Receive d Time (Source) Location / / Volume Laterality 08/27/2013 8:23 AM 3 8:28 GEODETIC SURVEYOR TECHNOLOGIST AM GEODETIC SURVEYOR TECHNOLOGIST Maged Aggarwal MD LAB - URINE ORDERABLES Performing Organization Address City/State/ZIP Code Phon e Number [facility] [address] [place], [place] [address] [address] Microalbumin quantitative random urine (08/27/2013 8:23 AM GEODETIC SURVEYOR TECHNOLOGIST) athologist Signature Creatinine 271 mg/dL [facility] Urine [facility] Albumin Urine 20 mg/L [facility] mg/L [facility] Albumin Urine 7.38 0 - 17 [facility] mg/g Cr mg/g Cr [facility] Specimen Anatomical Collection Method Collection Time Receive d Time (Source) Location / / Volume Laterality Urine specimen 08/27/2013 8:23 AM 013 8:28 (specimen) GEODETIC SURVEYOR TECHNOLOGIST AM GEODETIC SURVEYOR TECHNOLOGIST Maged Aggarwal MD LAB - URINE ORDERABLES Performing Organization Address City/State/ZIP Code Phon e Number [facility] [address] [place] [address] [facility] LAB[facility] (ABNORMAL) *UA reflex to Microscopic and Culture (08/27/2013 8:23 AM GEODETIC SURVEYOR TECHNOLOGIST) [facility] gist Method Time Signature Color Urine Yellow [facility] Appearance Urine Clear [facility] Glucose Urine Negative NEG mg/dL [facility] Bilirubin Urine Small (A) NEG [facility] Ketones Urine Negative NEG mg/dL [facility] Specific [place] 1.020 1.003 - [place] Urine 1.035 [facility] Blood Urine Negative NEG [facility] pH Urine 7.0 5.0 - 7.0 [place] pH [facility] Protein Albumin 30 (A) NEG mg/dL [place] Urine [facility] Urobilinogen 1.0 0.2 - 1.0 [place] Urine EU/dL [facility] Nitrite Urine Negative NEG [facility] Leukocyte Negative NEG [place] Esterase Urine [facility] Source Midstream [place] Urine [facility] Specimen Anatomical Collection Method Collection Time Receive d Time (Source) Location / / Volume Laterality Urine specimen 08/27/2013 8:23 AM 013 8:28 (specimen) GEODETIC SURVEYOR TECHNOLOGIST AM GEODETIC SURVEYOR TECHNOLOGIST Maged Aggarwal MD LAB - URINE ORDERABLES Performing Organization Address City/State/ZIP Code Phon e Number [facility] [address] [place], [place] [address] [address] (ABNORMAL) Comprehensive metabolic panel (08/27/2013 8:23 AM GEODETIC SURVEYOR TECHNOLOGIST) Analysis Performed At Patho logist Time Signature Sodium 142 133 - 144 [place] mmol/L [facility] Potassium 4.1 3.4 - 5.3 [place] mmol/L [facility] Chloride 101 94 - 109 [place] mmol/L [facility] Carbon Dioxide 29 20 - 32 [place] mmol/L [facility] Anion Gap 12 6 - 17 [place] mmol/L [facility] Glucose 95 60 - 99 [place] mg/dL [facility] Urea Nitrogen 18 5 - 24 [place] mg/dL [facility] Creatinine 1.42 (H) 0.66 - [facility] 1.25 mg/dL [facility] GFR Estimate 53 (L) >60 [place] mL/min/1.7 [facility] m2 GFR Estimate If 64 >60 [place] Black mL/min/1.7 [facility] m2 Calcium 9.5 8.5 - 10.4 [place] mg/dL [facility] Bilirubin Total 1.2 0.2 - 1.3 [facility] mg/dL [facility] Albumin 4.4 3.9 - 5.1 [facility] g/dL [facility] Comment: Reference range changed on 05/07. Protein Total 7.9 6.8 - 8.8 g/dL [place] [facility] Comment: As of 08, reference range reflects plasma specimen type. Alkaline Phosphatase 80 40 - 150 U/L [facility] ALT 80 (H) 0 - 70 U/L [facility] [place] AST 48 (H) 0 - 45 U/L [facility] [place] Specimen Anatomical Collection Method Collection Time Receive d Time (Source) Location / / Volume Laterality Blood specimen 08/27/2013 8:23 AM 013 8:28 (specimen) GEODETIC SURVEYOR TECHNOLOGIST AM GEODETIC SURVEYOR TECHNOLOGIST Maged Aggarwal MD LAB - BLOOD ORDERABLES Performing Organization Address City/State/ZIP Code Phon e Number [address] [address] documented in this encounter Visit Diagnoses Diagnosis Sleep disturbance, unspecified - Primary A-fib (H) Atrial fibrillation HTN (hypertension) Unspecified essential hypertension Atrial fibrillation status post cardiove rsion (H) Chest pain, precordial Precordial pain documented in this encounter Care Teams Outsole Skiver Relationship Specialty Start Date End Date No Ref-Primary, Physician PCP - General 06/21/13 12/13/13 documented as of this encounter
--- OUTSIDE RECORDS SUMMARY | 2022-06-25 13:56 | XMS_ITS | Encounter Summary ---
:1965 Author Organization [facility] Address [address] [place] [address] Care Team Providers Name Role Phone Maged Aggarwal MD Primary Care Provider Reason for Referral Consultation - Closed Specialty Diagnoses / Procedures Referred By Contact Refer red To Contact Neurosurgery Diagnoses Herniation of cervical intervertebral disc with radiculopathy Simon Jauregui, [facility] [address] [place], [place] [address] Referral ID Status Reason Start Date Expiration Date Visits Requ ested Visits Authorized [id number] Closed 03/13/2014 09/09/2014 1 1 Reason for Visit Reason Comments Neck Problem 6-8 wks ago, unknown cause, LUE sx in the arm, Encounter Details Date Type Department Care Team Description 03/13/2014 Office Visit [facility] Simon Jauregui Herniati on of cervical Orthopedic MD Ant intervertebral disc with [facility] [address] radiculopathy (Primary Sports Med [place], [place] Dx) [address] [facility], [address] [address] [place], [place] (Work) [address] Social History Tobacco Use Types Packs/Day Years Used Date Smoking Tobacco: Every Day Cigarettes L ast attempted to quit: 06/26/2011 Smokeless Tobacco: Never Alcohol Use Standard Drinks/Week Comments No 0 (1 standard drink = 0.6 oz pure alcoho l) Sex Assigned at Date Recorded 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 Herniation of cervical intervertebral disc with radiculopathy [facility] service will contact you to set up appointment with Spine Surgeon - should be within 3-5 days Prednisone 60 mg in the morning with food for 5 days - stop ibuprofen/Aleve while on the prednisone Vicodin as needed at bedtime for pain documented in this encounter Progress Notes Simon Jauregui MD - 03/13/2014 3:40 PM CDT [facility] Visit s Mar 13, 2014 Subjective: Feng Perez is a 48 year old male who is seen in consultation at the request of Dr. Armendariz for evaluation of neck pain. Symptoms began a couple of month(s) ago, and have been worsening since that time. Patient reports insidious onset without acute precipitating event. He reports aching and nagging neck pain that is located on the left side; radiation present down the left arm. He has numbness and weakness in the hand. Symptoms worse with neck bends, looking to the right. No ameliorating factors. No formal treatment tried to date. Associated symptoms: denies any bowel/bladder dysfunction or saddle anesthesia; no lowerextremity muscle weakness or balance issues. Patient's past medical, surgical, social and family histories are reviewed today. Medical history includes: Past Medical History Diagnosis Date ??? Coronary artery disease afib converted ??? Hypertension Review of Systems: Constitutional:NEGATIVE for fever, chills, change in weight Skin: NEGATIVE for worrisome rashes, moles or lesions Neuro: NEGATIVE for weakness, dizziness or paresthesias MSK: see HPI Objective: Ht 5' 10 (1.778 m) Wt 200 lb (90.719 kg) BMI 28.7 kg/m2 General: healthy, alert and no distress Skin: no suspicious lesions or rashes Psych: mentation appears normal and affect normal/bright Gait: normal Neuro: Brachial DTR 1+ left/2+ right. Sensory examination - decreased light tough left forearm and hand.. Motor strength as noted below. MSK: CERVICAL SPINE Inspection: No redness, swelling, ecchymosis, overlying skin change, or gross deformity/asymmetry, normal cervical lordosis present Palpation: Tender about the paracervical musculature (left), levator scapula (left), upper trapezius (left) and lower trapezius (left) No tenderness over the occiput or cervical spinous processes. Range of Motion: Flexion limited slightly by pain Extension limited substantially by pain Right side bend limited substantially by pain Left side bend limited slightly by pain Right rotation limited substantially by pain Left rotation limited slightly by pain Strength: Full strength throughout all neck muscles, shoulder shrug (C5) 5/5, deltoid (C5) 5/5, biceps (C6) 5-/5, wrist extension (C6) 4+/5, triceps (C7) 5-/5, wrist flexion (C7) 5/5, finger flexion (C8) 5-/5 Special Tests: Positive: Spurling's (left) Negative: shoulder abduction relief (bilateral) Imaging: MRI cervical spine: IMPRESSION: 1. Small central and right central broad-based disc protrusion C3-C4 with bilateral mild foraminal stenosis at this level. 2. Moderate to large broad-based central/left central and foraminal disc protrusion/extrusion C5-C6. 3. Early degenerative disc disease elsewhere without direct impingement on neural structures. ASSESSMENT: 1. Herniation of cervical intervertebral disc with radiculopathy PLAN: Several months of progressively worsening neck pain and radiating arm pain/numbness on the left. MRIdemonstrates a large herniation which is causing significant neural impingement. Reviewed etiology of condition as well as nonoperative and operative treatment options. In light of progressive symptoms, weakness in the extremity, and large herniation, referral was placed to see spine surgery. Prednisone burst prescribed. Vicodin PRN pain. Follow up sports medicine as needed. He was instructed to contact our office sooner should the condition evolve or worsen, or should any new/progressive neurologicsymptoms develop. Simon Jauregui MD, CAQSM [facility] documented in this encounter Nursing Notes Danita García - 03/13/2014 3:40 PM CDT Chief Complaint Patient presents with ??? Neck Problem 6-8 wks ago, unknown cause, LUE sx in the arm, Initial Ht 5' 10 (1.778 m) Wt 200 lb (90.719 kg) BMI 28.7 kg/m2 Estimated body mass index is 28.7 kg/(m^2) as calculated from the following: Height as of this encounter: 5' 10 (1.778 m). Weight as of this encounter: 200 lb (90.719 kg). BP completed using cuff size: NA (Not Taken) Danita García ATC documented in this encounter Plan of Treatment Pending Results Name Type Priority Associated Diagnoses Date/Ti ky ORTHO LEAN MANUFACTURING COORDINATOR REFERRAL Referral Routine Herniation of ce rvical 03/15/2014 intervertebral disc with radiculopathy documented as of this encounter Visit Diagnoses Diagnosis Herniation of cervical intervertebral di sc with radiculopathy - Primary Displacement of cervical intervertebral disc without myelopathy documented in this encounter Care Teams Ecommerce Merchandising Manager Relationship Specialty Start Date End Date Maged Aggarwal MD PCP - General Internal Medicine 12/14/13 03/16/15 [address] [place] [address] documented as of this encounter
--- OUTSIDE RECORDS SUMMARY | 2022-06-25 13:56 | XMS_ITS | Encounter Summary ---
:1965 Author Organization [facility] Address [address] [place] [address] Care Team Providers Name Role Phone No Ref-Primary, Physician Primary Care Provider [phone] Reason for Visit Reason Comments RECHECK follow up psg Encounter Details Date Type Department Care Team Description 09/19/2013 Office Visit [facility] Feng Orantes [facility] Tiana Cain MD disturbances (Primary [address] 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 as of this encounter Last Filed Vital Signs Vital Sign Reading Time Taken Comments Blood Pressure 128/87 09/19/2013 8:00 AM CLINICAL DIETETIC TECHNICIAN R arm Pulse 99 09/19/2013 8:00 AM CLINICAL DIETETIC TECHNICIAN Temperature 36.8 ??C (98.3 ??F) 09/19/2013 8:00 AM CLINICAL DIETETIC TECHNICIAN Respiratory Rate 18 09/19/2013 8:00 AM CLINICAL DIETETIC TECHNICIAN Oxygen Saturation 95% 09/19/2013 8:00 AM CLINICAL DIETETIC TECHNICIAN room ai r Inhaled Oxygen Concentration - - Weight 96.6 kg (213 lb) 09/19/2013 8:00 AM CLINICAL DIETETIC TECHNICIAN Height 175.3 cm (5' 9.02) 09/19/2013 8:00 AM CLINICAL DIETETIC TECHNICIAN Body Mass Index 31.44 09/19/2013 8:00 AM CLINICAL DIETETIC TECHNICIAN documented in this encounter Progress Notes Feng Orantes MD - 09/19/2013 8:42 AM CST We discussed the results of his PSG He does not have ZENA as his AHI was less than 5. This was an excellent study with all stages of sleep seen. Of note he did not sleep supine in REM sleep and thus this could be an underestimation. But according to the patient he is actually less likely to sleep supine at home as he did here. He does not describe sleepiness. He does snore we mentioned possible treatments if he is interested include: dental appliance or uvulectomy. He does not believe it is a problem right now but will return if it becomes one or if he has any other sleep issues in the future. All questions were answered. It is a great privilege being asked to participate in this patients care. He understands the importance in of never operating operating a motor vehicle while tired or sleepy. 15 minutes were spent with this patient greater than 50% in counsiling and coordination of care. ICAL DIETETIC TECHNICIAN documented in this encounter Plan of Treatment Not on filedocumented as of this encounter Visit Diagnoses Diagnosis Other sleep disturbances - Primary documented in this encounter Care Teams Vacuum System Tester Relationship Specialty Start Date End Date No Ref-Primary, Physician PCP - General 06/21/13 12/13/13 documented as of this encounter
--- OUTSIDE RECORDS SUMMARY | 2022-06-25 13:56 | XMS_ITS | Encounter Summary ---
:1965 Author Organization [facility] Address [address] [place] [address] Care Team Providers Name Role Phone Maged Aggarwal MD Primary Care Provider Reason for Visit Reason Onset Date Comments Numbness 03/04/2014 Encounter Details Date Type Department Care Team Description 03/04/2014 Telephone [facility] Maged Aggarwal MD Numbness [place] [address] [facility] [address] [place] [address] [place] [address] [phone] Social History Tobacco Use Types Packs/Day Years Used Date Smoking Tobacco: Former Cigarettes Quit : 06/26/2011 Smokeless Tobacco: Never Alcohol Use Standard Drinks/Week Comments No 0 (1 standard drink = 0.6 oz pure alcoho l) Sex Assigned at Date Recorded 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 He denied confusion of change in LOC, headache, weakness, difficulty speaking, slurred speech, blurred vision, loss of bladder or bowel control, fingers cold or blue, chest pain, pain, swollen or warm skin. Per protocol scheduled appointment for tomorrow morning and advised to call back if any new symptoms develop or symptoms worsen. He agrees with the plan. Protocol used: Telephone Triage Protocols for Nurses by Nilda Fontenot 4th Edition 2011 documented in this encounter Plan of Treatment Not on filedocumented as of this encounter Visit Diagnoses Not on filedocumented in this encounter Care Teams Ditch Digger Relationship Specialty Start Date End Date Maged Aggarwal MD PCP - General Internal Medicine 12/14/13 03/16/15 [place] [address] documented as of this encounter
--- OUTSIDE RECORDS SUMMARY | 2022-06-25 13:56 | XMS_ITS | Encounter Summary ---
:1965 Author Organization [place] Address [address] [place] [address] Care Team Providers Name Role Phone Yojana Aggarwal MD Primary Care Provider Reason for Visit Reason Comments Consult Encounter Details Date Type Department Care Team Description 12/19/2013 Office Visit [facility] Yojana Aggarwal, Non specific abnormal results of liver function study (Primary Dx); [facility] Elevated serum creatinine; [address] HTN (hypertension); [place], [place] Abdominal pain, other specif ied site [place], [place] [id number] [phone] Social History Tobacco Use Types Packs/Day Years Used Date Smoking Tobacco: Former Cigarettes Quit : 06/26/2011 Smokeless Tobacco: Never Alcohol Use Standard Drinks/Week Comments No 0 (1 standard drink = 0.6 oz pure alcoho l) Sex Assigned at Date Recorded 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 encounter Last Filed Vital Signs Vital Sign Reading Time Taken Comments Blood Pressure 118/88 12/19/2013 8:10 AM CDT Pulse 90 12/19/2013 8:10 AM CDT Temperature 36.8 ??C (98.2 ??F) 12/19/2013 8:10 AM CDT Respiratory Rate 16 12/19/2013 8:10 AM CDT Oxygen Saturation 99% 12/19/2013 8:10 AM CDT Inhaled Oxygen Concentration - - Weight 92.2 kg (203 lb 4.8 oz) 12/19/2013 8:10 AM CDT Height 175.3 cm (5' 9) 12/19/2013 8:10 AM CDT Body Mass Index 30.02 12/19/2013 8:10 AM CDT documented in this encounter Patient Instructions Patient InstructionsWendy Wheat LPN - 12/19/2013 8:16 AM CDT You can reach your [place] Care Team any time of the day by calling [phone]. This number will put you in touch with the 24 hour nurse line even if the clinic is closed. The clinic hours for [facility] are: Tuesday through 7am to 6pm Tuesday 7am to 5pm Tuesday 8am to 12p for Pediatrics only. To contact your Press Supervisor please call [phone]. This is a direct number for your care team during clinic hours. [facility] is now open for your convenience: Tuesday through Tuesday 7:30am to 7pm Tuesday and Tuesday 9am to 3pm They are closed on all major holidays. documented in this encounter Progress Notes Yojana Aggarwal MD - 12/19/2013 8:16 AM CDT SUBJECTIVE: Feng Perez is a 48 year old male who presents to clinic today for the following health issues: CONSULT : regarding BP & Labs results. Patient is seen for a follow up visit. Has h/o HTN. on medical treatment. BP has been controlled. No side effects from medications. No CP, BUSH, dizziness. good compliance with medications and low salt diet. Has stopped his Cozaar and Norvasc 1 month ago. Has h/o elevated creatinine, likely related to high protein diet and body building exercise, has stopped his supplements. Still exercises. Reports episodes of abdominal pain - right sided after BM and urination lasting 10-20 minutes. Problem list and histories reviewed & adjusted, [...] MUSCULOSKELETAL: NEGATIVE for significant arthralgias or myalgia ENDOCRINE: NEGATIVE for temperature intolerance, skin/hair changes OBJECTIVE: BP 118/90 Pulse 90 Temp(Src) 98.2 ??F (36.8 ??C) (Oral) Resp 16 Ht 5' 9 (1.753 m) Wt 203 lb 4.8 oz (92.216 kg) BMI 30.01 kg/m2 SpO2 99% Body mass index is 30.01 kg/(m^2). GENERAL: healthy, alert, well nourished, well [...] extremities- no gross deformities noted, no edema ASSESSMENT/PLAN: ICD-9-CM 1. Nonspecific abnormal results of liver function study 794.8 Comprehensive metabolic panel Fecal colorectal cancer screen (FIT) US Abdomen Complete 2. Elevated serum creatinine 790.99 US Abdomen Complete 3. HTN (hypertension) 401.9 4. Abdominal pain, other specified site 789.09 Assess labs Schedule US- liver and kidneys Consider colonoscopy if positive FIT Consider resuming antihypertensives. Follow up with Provider - with results YOJANA AGGARWAL MD [facility] documented in this encounter Nursing Notes Wendy Wheat LPN - 12/19/2013 8:16 AM CDT Chief Complaint Patient presents with ??? Consult Initial BP 118/90 Pulse 90 Temp(Src) 98.2 ??F (36.8 ??C) (Oral) Resp 16 Ht 5' 9 (1.753 m) Wt 203 lb 4.8 oz (92.216 kg) BMI 30.01 kg/m2 SpO2 99% Estimated body mass index is 30.01 kg/(m^2) as calculated from the following: Height as of this encounter: 5' 9 (1.753 m). Weight as of this encounter: 203 lb 4.8 oz (92.216 kg). BP completed using cuff size: large documented in this encounter Plan of Treatment Not on filedocumented as of this encounter Procedures Procedure Name Priority Date/Time Associated Comments Diagnosis COMPREHENSIVE Routine 12/19/2013 8:37 AM Nonspecific Results for this METABOLIC PANEL CDT abnormal results of jessica sanchez are in liver function the results study section. documented in this encounter Results Comprehensive metabolic panel (12/19/2013 8:37 AM CDT) P athologist Signature Sodium 143 133 - 144 [facility] mmol/L [facility] Potassium 4.2 3.4 - 5.3 [facility] Chloride 101 94 - 109 [facility] Carbon Dioxide 28 20 - 32 [facility] Anion Gap 14 6 - 17 [facility]/L [facility] Glucose 79 60 - 99 [facility] mg/dL [facility] Urea Nitrogen 14 5 - 24 [facility] mg/dL [facility] Creatinine 1.23 0.66 - [facility] 1.25 mg/dL [facility] GFR Estimate 63 >60 [facility] mL/min/1.7 [facility] m2 GFR Estimate If 76 >60 [facility] Black mL/min/1.7 [facility] [place] m2 Calcium 9.4 8.5 - 10.4 [facility] mg/dL [facility] Bilirubin Total 0.6 0.2 - 1.3 [facility] mg/dL [facility] [place] Albumin 4.2 3.9 - 5.1 [facility] g/dL [facility] Comment: Reference range changed on 05/07. Protein Total 7.4 6.8 - 8.8 g/dL [facility] Comment: As of 08, reference range reflects plasma specimen type. Alkaline Phosphatase 91 40 - 150 U/L [facility] ALT 57 0 - 70 U/L [facility] [place] AST 40 0 - 45 U/L [facility] [place] Specimen Anatomical Collection Method Collection Time Receive d Time (Source) Location / / Volume Laterality Blood specimen 12/19/2013 8:37 AM 014 8:42 (specimen) CDT AM CDT Yojana Aggarwal MD LAB - BLOOD ORDERABLES Performing Organization Address City/State/ZIP Code Phon e Number [facility] [address] [place] [address] documented in this encounter Visit Diagnoses Diagnosis Nonspecific abnormal results of liver fu nction study - Primary Elevated serum creatinine Other nonspecific findings on examinatio n of blood HTN (hypertension) Unspecified essential hypertension Abdominal pain, other specified site documented in this encounter Care Teams Neurourologist Relationship Specialty Start Date End Date Yojana Aggarwal MD PCP - General Internal Medicine 12/14/13 03/16/15 [address] [place] [address] documented as of this encounter
--- OUTSIDE RECORDS SUMMARY | 2022-06-25 13:56 | XMS_ITS | Encounter Summary ---
:1965 Author Organization [place] Address [address] [place] [address] Care Team Providers Name Role Phone No Ref-Primary, Physician Primary Care Provider [phone] Maged Aggarwal MD Primary Care Provider Leticia Armendariz MD Primary Care Provider Leticia Armendariz MD Unavailable Leticia Armendariz MD Unavailable Encounter Details Date Type Department Care Team Description 07/31/2013 Historic Results [facility] Heart Unknown, [facility] [address] [address] Social History Tobacco Use Types Packs/Day Years Used Date Smoking Tobacco: Former Cigarettes Quit : 06/26/2011 Alcohol Use Standard Drinks/Week Comments No 0 (1 standard drink = 0.6 oz pure alcoho l) Sex Assigned at Date Recorded 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 Provider Scan ECG ORDERABLES documented in this encounter Visit Diagnoses Not on filedocumented in this encounter Care Teams Business Strategist Relationship Specialty Start Date End Date No Ref-Primary, Physician PCP - General 06/21/13 12/13/13 Maged Aggarwal MD PCP - General Internal Medicine 12/14/13 03/16/15 [address] [place] [address] Leticia Armendariz MD PCP - General Internal Medicine 03/17/15 Leticia Armendariz MD PCP - Assigned PCP 06/30/14 11/07/[address] [address] Leticia Armendariz MD Assigned PCP 06/30/14 01/06/[address] [address] documented as of this encounter
--- OUTSIDE RECORDS SUMMARY | 2022-06-25 13:56 | XMS_ITS | Encounter Summary ---
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 Last Filed Vital Signs Vital Sign Reading Time Taken Comments Blood Pressure 148/90 08/08/2013 8:00 AM FOOD CASHIER right arm Pulse 82 08/08/2013 8:00 AM FOOD CASHIER Temperature 36.8 ??C (98.3 ??F) 08/08/2013 8:00 AM FOOD CASHIER Respiratory Rate 18 08/08/2013 8:00 AM FOOD CASHIER Oxygen Saturation 95% 08/08/2013 8:00 AM FOOD CASHIER Inhaled Oxygen Concentration - - Weight 98 kg (216 lb) 08/08/2013 8:00 AM FOOD CASHIER Height 175.3 cm (5' 9) 08/08/2013 8:00 AM FOOD CASHIER Body Mass Index 31.9 08/08/2013 8:00 AM FOOD CASHIER documented in this encounter Progress Notes Feng Daigle MD - 08/08/2013 8:46 AM CST SLEEP DISORDER C[facility] CONSULTATION Mr. Feng Dueñas is a 48-year-old gentleman who was referred to us from Dr. Ramirez to evaluate sleep disordered breathing in the setting of atrial fibrillation. Dear Dr. Ramirez: Thank you for the referral. My consultation is below. If you have any questions, do not hesitate to contact me. Mr. Dueñas is a 48-year-old gentleman whose describes a very longstanding history of snoring and sleep non-episcopal. He usually goes to bed between 10:30 and 11:00 at night. His sleep is assisted byan [id number] antihistamine that he does not recall the name. He otherwise would go to bed at about midnight and wake up at 9:00 in the morning even if he were able to sleep ad-mere he does not feel that his sleep would be significantly refreshing. He does have occasional motor restlessness, but this has actually improved over the last several years and does not interfere with his ability to fall asleep. He knows that he snores and snores loudly. His wears ear plugs. He can be heard on a separate floor even with the door closed. He often wakes up with a dry mouth and sore throat. He does have nocturnal gastroesophageal reflux and labored breathing. Once he wakes up he does have a tendency to fall asleep during passive quite situations. His EpworthSleepiness Scale score is only 6/24; however importantly, he does not describe any difficulties operating a motor vehicle because of sleepiness. He does not describe cataplexy, sleep paralysis or hypnagogic or hypnopompic hallucinations. PAST MEDICAL HISTORY: He had a bout of atrial fibrillation and he was cardioverted successfully. He also has gastroesophageal reflux. MEDICATIONS: Omeprazole, aspirin. He was previously taking metoprolol, he states that he is not currently doing so, but does not recall the name of the other antihypertensive agent he was recently started. SOCIAL HISTORY: Mr. Dueñas is a fascinating, a 42-year-old gentleman. 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 His atrial fibrillation actually appeared to have started after doing some intense arm curls. 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 FAMILY HISTORY: He does not describe a family history of snoring or sleep apnea. REVIEW OF SYSTEMS: A 10-point review of systems was ascertained. Pertinent findings are all mentioned above. PHYSICAL EXAMINATION: VITAL SIGNS: Blood pressure is 148/90, pulse 82, respirations 18, oxygen saturations 95%, temperature 98.3 degrees Fahrenheit, body mass index of 31.96 kg/m2. HEENT: Neck is circumference is 18.5 inches. Otherwise, normal craniofacial features. NEUROLOGIC SPECIALTY: He is alert and oriented, has normal memory and language. Mood and affect are congruent. Funduscopic examination reveals normal retinal vasculature. Cranial nerves II-XII including extraocular movements are normal. Motor examination reveals normal bulk, tone and strength in the upper and lower extremities. Deep tendon reflexes are normoactive. Toes are downgoing. Coordination, sensory and gait testing are all normal. VASCULAR: Warm feet and good pulses. No pitting edema. ASSESSMENT: Mr. Dueñas is a 48-year-old gentleman with a concerning history of intermittent atrial arrhythmia, snoring, daytime sleepiness, all concerning for sleep disordered breathing. We will go ahead and arrange for him to have an overnight polysomnogram. We discussed the pathophysiology, investigation, and management of sleep disordered breathing. We discussed CPAP, but we also discussed mandibular repositioning appliances. He is quite eager to get the study done. We will go ahead and arrange for it to be so. I look forward to seeing him after his study is completed. It is a great privilege being asked to participate in his care. He understands the importance of never operating a motor vehicle while sleepy. FENG DAIGLE MD MT: chente Name: FENG DUEÑAS Account: [id number] : 1965 Visit Date: 08/08/2013 Document: [id number] cc: Karuna Ramirez MD CASHIER Feng Daigle MD - 08/08/2013 8:30 AM CST See dictation CASHIER documented in this encounter Plan of Treatment Not on filedocumented as of this encounter Visit Diagnoses Diagnosis A-fib (H) - Primary Atrial fibrillation Sleep disturbance, unspecified documented in this encounter Care Teams Office Helper Clerical Relationship Specialty Start Date End Date No Ref-Primary, Physician PCP - General 06/21/13 12/13/13 documented as of this encounter
--- OUTSIDE RECORDS SUMMARY | 2022-06-25 13:56 | XMS_ITS | Encounter Summary ---
:1965 Author Organization [facility] Address [address] [place] [address] Care Team Providers Name Role Phone No Ref-Primary, Physician Primary Care Provider [phone] Encounter Details Date Type Department Care Team Description 07/09/2013 Hospital Encounter [facility] [facility] Fanny Ramirez, Radiology - [facility] [address] [facility] [address] [facility] [address] [place] [address] [place] [address] [place], [place] [id number] (Wo rk) Social History Tobacco Use Types Packs/Day Years Used Date Smoking Tobacco: Former Cigarettes Quit : 06/26/2011 Alcohol Use Standard Drinks/Week Comments No 0 (1 standard drink = 0.6 oz pure alcoho l) Sex Assigned at Date Recorded 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 Medications at Time of Discharge Medication Sig Dispensed Refills Start Date End Date ASPIRIN PO Take 81 mg by mouth 0 12/19 daily CREATINE PO Take 2 tablets by 0 2013 mouth every morning Creatinine POWD 2 dose every morning 0 12/19/2013 dhea 25 MG TABS Take 50 mg by mouth 0 12/19/2013 daily doxylamine (UNISOM) 25 Take 25 mg by mouth 0 04/12/2014 MG TABS nightly as needed METOPROLOL TARTRATE 25 mg daily 0 08/06 Omeprazole (PRILOSEC PO) Take 20 mg by mouth 0 04/12/2014 every evening Protein POWD Take 2 dose by mouth 0 every morning documented as of this encounter Plan of Treatment Not on filedocumented as of this encounter Visit Diagnoses Not on filedocumented in this encounter Care Teams Dictating Machine Transcriber Relationship Specialty Start Date End Date No Ref-Primary, Physician PCP - General 06/21/13 12/13/13 documented as of this encounter
--- OUTSIDE RECORDS SUMMARY | 2022-06-25 13:56 | XMS_ITS | Encounter Summary ---
:1965 Author Organization [place] Address [address] [place] [address] Care Team Providers Name Role Phone Maged Aggarwal MD Primary Care Provider Encounter Details Date Type Department Care Team Description 12/14/2013 Orders Only [facility] Maged Aggarwal, HTN (hypertension) Clinic [facility] (Primary Dx) [address] [place] [phone] Social History Tobacco Use Types Packs/Day Years Used Date Smoking Tobacco: Former Cigarettes Quit : 06/26/2011 Smokeless Tobacco: Never Alcohol Use Standard Drinks/Week Comments No 0 (1 standard drink = 0.6 oz pure alcoho l) Sex Assigned at Date Recorded 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
--- OUTSIDE RECORDS SUMMARY | 2022-06-25 13:56 | XMS_ITS | Encounter Summary ---
:1965 Author Organization [facility] Address [address] [place] [address] Care Team Providers Name Role Phone Maged Aggarwal MD Primary Care Provider Reason for Visit (Routine) - Closed Specialty Diagnoses / Procedures Referred By Contact Refer red To Contact Radiology / Radiology. Diagnoses EPIC, mr safe wt 200 Rh Mri Procedures MR CERVICAL SPINE WO [address] [place] [address] Phone: Fax: Referral ID Status Reason Start Date Expiration Date Visits Requ ested Visits Authorized [id number] Closed 03/06/2014 03/06/2015 1 1 Encounter Details Date Type Department Care Team Description 03/08/2014 Hospital Encounter [facility], Numb ness and tingling [facility] Leticia Bender MD of left arm and leg [address] [place], [place] [address] [address] [place], [place] [phone] Social History Tobacco Use Types Packs/Day Years Used Date Smoking Tobacco: Every Day Cigarettes L ast attempted to quit: 06/26/2011 Smokeless Tobacco: Never Alcohol Use Standard Drinks/Week Comments No 0 (1 standard drink = 0.6 oz pure alcoho l) Sex Assigned at Date Recorded 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 zolpidem (AMBIEN) 5 MG Take 1 tablet (5 mg) 30 tablet 5 09/201304/12/2014 tabletIndications: by mouth nightly as Insomnia needed for sleep documented as of this encounter Plan of Treatment Not on filedocumented as of this encounter Procedures Procedure Name Priority Date/Time Associated Diagnosis Comme nts MR CERVICAL SPINE Routine 03/08/2014 12:14 PM Numbness and Res ults for this W/O CONTRAST CDT tingling of left arm procedu re are in and leg the results section. documented in this encounter Results MR Cervical Spine w/o Contrast (03/08/2014 12:14 PM CDT) Anatomical Region Laterality Modality Spine, SUBRAD MR NEURO, UMP MR SPINE Mag netic Resonance Specimen (Source) Anatomical Location Collection Method / Collectio n Time Received Time / Laterality Volume Impressions 03/08/2014 2:26 PM CDT IMPRESSION: 1. Small central and right central broad -based disc protrusion C3-C4 with bilateral mild foraminal stenosis a t this level. 2. Moderate to large broad-based central /left central and foraminal disc protrusion/extrusion C5-C6. 3. Early degenerative disc disease elsew here without direct impingement on neural structures. WAYNE CLEMENTE MD Narrative 03/08/2014 2:26 PM CDT MR CERVICAL SPINE WITHOUT CONTRAST 03/08/2014 12:14 PM HISTORY: Left-sided neck and arm pain wi th weakness and numbness. No specific injury. TECHNIQUE: Sagittal T1, T2, STIR and gra dient echo images and axial gradient echo and T2-weighted images. COMPARISON: None. FINDINGS: The cervical cord and cervicom edullary junction appear intrinsically normal. Alignment is rony l. Minimal benign peridiscal degenerative signal change about the C5- C6 disc space and vertebral bone marrow signal is otherwise unremark able. C2-C3 disc space and posterior facets ar e normal. C3-C4 disc space shows diffuse disc bulg ing and a small superimposed broad-based central/right central disc p rotrusion. This effaces the anterior subarachnoid space but there is no significant overall central stenosis. There is probably mild bilateral foraminal narrowing from endplate/uncinate spurring and the posterior facets are normal. C4-C5 disc space shows a minimal focal c entral disc bulge without direct impingement on neural structures and there is no central or foraminal stenosis. Posterior facets are normal. C5-C6 disc space shows a moderate to lar ge broad-based central/left central disc protrusion/extrusion which causes some mass effect on the left anterolateral cord and results in a t least mild overall central stenosis. There is also moderate left fo raminal stenosis since the disc material appears to also extend int o the foramen. Clinical correlation for left-sided C6 nerve root symptoms is recommended. The right neural foramen is unremarkable and the posterior facets appear normal. C6-C7 disc space shows minimal disc bulg ing without impingement on neural structures. No central or foramin al stenosis and posterior facets are normal. C7-T1, T1-T2 and T2-3 disc spaces and po sterior facets are unremarkable. Procedure Note Wayne Clemente MD - 03/08/2014Fo rmatting of this note might be different from the original. MR CERVICAL SPINE WITHOUT CONTRAST 014 12:14 PM HISTORY: Left-sided neck and arm pain wi th weakness and numbness. No specific injury. TECHNIQUE: Sagittal T1, T2, STIR and gra dient echo images and axial gradient echo and T2-weighted images. COMPARISON: None. FINDINGS: The cervical cord and cervicom edullary junction appear intrinsically normal. Alignment is rony l. Minimal benign peridiscal degenerative signal change about the C5- C6 disc space and vertebral bone marrow signal is otherwise unremark able. C2-C3 disc space and posterior facets ar e normal. C3-C4 disc space shows diffuse disc bulg ing and a small superimposed broad-based central/right central disc p rotrusion. This effaces the anterior subarachnoid space but there is no significant overall central stenosis. There is probably mild bilateral foraminal narrowing from endplate/uncinate spurring and the posterior facets are normal. C4-C5 disc space shows a minimal focal c entral disc bulge without direct impingement on neural structures and there is no central or foraminal stenosis. Posterior facets are normal. C5-C6 disc space shows a moderate to lar ge broad-based central/left central disc protrusion/extrusion which causes some mass effect on the left anterolateral cord and results in a t least mild overall central stenosis. There is also moderate left fo raminal stenosis since the disc material appears to also extend int o the foramen. Clinical correlation for left-sided C6 nerve root symptoms is recommended. The right neural foramen is unremarkable and the posterior facets appear normal. C6-C7 disc space shows minimal disc bulg ing without impingement on neural structures. No central or foramin al stenosis and posterior facets are normal. C7-T1, T1-T2 and T2-3 disc spaces and po sterior facets are unremarkable. IMPRESSION IMPRESSION: 1. Small central and right central broad -based disc protrusion C3-C4 with bilateral mild foraminal stenosis a t this level. 2. Moderate to large broad-based central /left central and foraminal disc protrusion/extrusion C5-C6. 3. Early degenerative disc disease elsew here without direct impingement on neural structures. WAYNE CLEMENTE MD Leticia Armendariz MD IMG MRI ORDERABLES documented in this encounter Visit Diagnoses Diagnosis Numbness and tingling of left arm and le g Disturbance of skin sensation documented in this encounter Care Teams Enrolled Agent Relationship Specialty Start Date End Date Maged Aggarwal MD PCP - General Internal Medicine 12/14/13 03/16/15 [address] [place] [address] documented as of this encounter
--- OUTSIDE RECORDS SUMMARY | 2022-06-25 13:56 | XMS_ITS | Encounter Summary ---
:1965 Author Organization [facility] Address [address] [place] [address] Care Team Providers Name Role Phone No Ref-Primary, Physician Primary Care Provider [phone] Maged Aggarwal MD Primary Care Provider Leticia Armendariz MD Primary Care Provider Nahum Lemus MD Unavailable Karuna Ramirez MD Unavailable [phone] Gloria Karime Irina DO Unavailable Tito Almonte MD Unavailable Leticia Armendariz MD Unavailable Leticia Armendariz MD Unavailable Ro Reyna NP Unavailable Kedar Rodriguez MD Unavailable Leticia Armendariz MD Unavailable Cristian Cooper MD Unavailable Torsten Rodriguez MD Unavailable Annabelle Shields CNP Unavailable Encounter Details Date Type Department Care Team Description 07/09/2013 Office Visit-[facility] Karuna Keane MD [address] [facility] [address] [place] [phone] [address] [phone] [place] [id number] (Wo rk) Social History Tobacco Use Types Packs/Day Years Used Date Smoking Tobacco: Former Cigarettes Quit : 06/26/2011 Alcohol Use Standard Drinks/Week Comments No 0 (1 standard drink = 0.6 oz pure alcoho l) Sex Assigned at Date Recorded 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 [id number] DATE: 07/09/2013 LILIANA DUEÑAS DATE OF : 1965 AGE: [age] years old Referring Physician: IKER FANG CURRENT DIAGNOSES 1. - Chest Pain Precordial, 786.51 2. - Atrial Fibrillation, 427.31 3. Hematoma any artery, 998.1 4. Injury To Blood Vessels Of Unspecified Site, 904.9 ALLERGIES NKDA MEDICATIONS (prior to changes made today) 1. Aspirin Low Dose 81 mg tablet,delayed release (DR/EC) 1 p.o. daily 2. creatinine (bulk) 100 % Powder Dose/instruction UNKNOWN 3. DHEA 50 mg capsule 1 p.o. daily 4. metoprolol succinate 25 mg tablet extended release 24 hr one tablet daily 5. Prilosec 20 mg capsule,delayed release(DR/EC) 1 p.o. daily 6. protein Powder Dose/instruction UNKNOWN CHIEF COMPLAINTS Followup of - Atrial Fibrillation, Followup of - Chest Pain Precordial and Followup of Hematoma any artery HISTORY OF PRESENT ILLNESS This is a follow-up visit post cardiac catheterization. SUBJECTIVE: Mr. Dueñas is a pleasant 48-year-old gentleman who had an episode of atrial fibrillationand was cardioverted in the emergency room, also with complaints of vague chest discomfort for whichhe underwent a cardiac catheterization showing no obstructive disease. He states, he has no chest pain but is fatigued and can be short of breath on exertion. He has not been to the gym because he was told that he could not lift anything heavy for two weeks following his cath. He had a small hematoma that had reportedly healed. He also does complain of increased heartburn since this whole episode started, which coincides with starting a baby aspirin a day for potential paroxysmal atrial fibrillationwith a possibly CHADS2 0 risk score, though his blood pressure appears to be borderline high and mildly high on our measurement. His creatinine was mildly elevated, likely related to an increase 300 gram a day intake. He has no known kidney dysfunction. He does drink enough fluid. He states, he does not urinate very much. PAST HISTORY Past Medical Illnesses: previously healthy with no significant past history. 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 PHYSICAL EXAMINATION VITAL SIGNS: Blood Pressure: 136/90Sitting, Left arm, large cuff Pulse- 76.00/min. Weight- 212.60 lbs. Height- 69.5 BMI Measurement: 31 CONSTITUTIONAL cooperative, alert and oriented,well developed, well [...] time, person and place. MEDICATIONS UPDATED/STARTED TODAY: Diovan 80 mg tablet, one tablet daily instead of metoprolol, #30 (Thirty) MEDICATIONS REFILLED/STOPPED TODAY: metoprolol succinate 25 mg tablet extended release 24 hr one tablet daily #30 tablets Physician Order IMPRESSIONS/PLAN A pleasant 48-year-old gentleman with an episode of atrial fibrillation cardioverted in the emergency room. He had an overnight sleep study that showed no evidence of desaturation. He is wearing an event monitor to surveil for asymptomatic atrial fibrillation, but he thinks now that he was clearly symp tomatic with his episode. He has a CHADS2 0 to 1 risk score potentially with hypertension. He is on an aspirin a day, though in the absence of any recorded atrial fibrillation so far on his monitor andin the setting of him saying it is clearly symptomatic, we can stop the aspirin given the increased heartburn he has. I have recommended that he do touch base with his primary physician or maybe GI to further evaluate that. He is fatigued and does have a sleep center consult coming up. He did have a negative overnight oximetry, though I do not know what is the sensitivity and specificity of this test. He does have disordered sleep, and I think it is reasonable to follow up with them. He also has some complaints of dyspnea that appears non-limiting, and it would be reasonable to discuss this with the loading unit operator at that time as well. His echocardiogram shows low-normal systolic function and otherwise is grossly normal, with the exception of mild LVH. This may be related to occult hypertension. I have started him on 80 of Diovan instead of metoprolol, and we will recheck kidney function test now, as well as in two weeks' time in [facility]. I have asked that he try to maintain his protein intake constant at the 200 gram level. In order to control variables, we will recheck his kidney function test now, as well as in two weeks. Further recommendations will be pending the results. It is a pleasure being involved in his care. Total time is 30 minutes, 25 in coordination, care, and counseling. TODAYS ORDERS 1. BMP Today 2. BMP 10 days 3. call results of ultrasound to me isidro 4. F/U with Senia Patel, P.AJoce 7-14 days 5. Lower Ext/Pseudoaneurysm Right today-Include ltd illiac art duplex and ltd unilat Venous Karuna Ramirez M.D. documented in this encounter Plan of Treatment Not on filedocumented as of this encounter Visit Diagnoses Not on filedocumented in this encounter Care Teams Baker Head Relationship Specialty Start Date End Date No Ref-Primary, PCP - General 06/21/13 12/13/13 Physician Maged Aggarwal, PCP - General Internal Medicine 12/14/1308/19 [address] [place] [address] Leticia Armendariz, PCP - General Internal Medicine 03/17/15 Leticia Armendariz, PCP - Assigned PCP 06/30/14 [facility] [address] [place] [address] Nahum Lemus MD 09/16/16 [facility] [address] [facility] [place] [address] Karuna Ramirez MD Cardiology 09/16/16 MD Erend[facility] Karime Castro, Referring Physician Orthopedics 05/13/17 DO [facility] [address] [facility] [address] [place] [address] Tito Almonte MD MD Orthopedics 05/13/17 [address] [facility] [address] [place] [address] Leticia Armendariz, Assigned PCP 06/30/14 01/06/19 MD [facility] [address] [place] [address] [id number] Ro Reyna, Assigned PCP 01/07/19 [facility] [address] [place] [place] [id number] Kedar Rodriguez MD Assigned PCP 08/26/19 12/29/[address] [place] [id number] Leticia Armendariz, Assigned PCP 12/30/19 02/07/21 MD [facility] [address] [place] [address] [id number] Cristian Cooper MD Assigned Heart and 06/27/20 07/11/21 [address], Vascular Provider [address] [place], [place] [id number] Torsten Rodriguez MD Assigned Musculoskeletal 08/24/20 02/19/22 [address] [place], [place] [id number] Annabelle Shields, EDISON Assigned PCP 02/08/[address] [place], [place] [id number] documented as of this encounter
--- OUTSIDE RECORDS SUMMARY | 2022-06-25 13:57 | XMS_ITS | Encounter Summary ---
:1965 Author Organization [facility] Address [address] [place] [address] Care Team Providers Name Role Phone No Ref-Primary, Physician Primary Care Provider [phone] Encounter Details Date Type Department Care Team Description 06/27/2013 Telephone [facility] Janina Kraus, Interventional Radio logy RN [address] [place] [address] Social History Tobacco Use Types Packs/Day Years Used Date Smoking Tobacco: Former Cigarettes Quit : 06/26/2011 Alcohol Use Standard Drinks/Week Comments No 0 (1 standard drink = 0.6 oz pure alcoho l) Sex Assigned at Date Recorded 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
--- OUTSIDE RECORDS SUMMARY | 2022-06-25 13:57 | XMS_ITS | Encounter Summary ---
:1965 Author Organization [facility] Address [address] [place] [address] Care Team Providers Name Role Phone No Ref-Primary, Physician Primary Care Provider [phone] Maged Aggarwal MD Primary Care Provider Leticia Armendariz MD Primary Care Provider Leticia Armendariz MD Unavailable Leticia Armendariz MD Unavailable Encounter Details Date Type Department Care Team Description 06/29/2013 Historic Results [facility] Heart Unknown, [address] [address] Social History Tobacco Use Types Packs/Day Years Used Date Smoking Tobacco: Former Cigarettes Quit : 06/26/2011 Alcohol Use Standard Drinks/Week Comments No 0 (1 standard drink = 0.6 oz pure alcoho l) Sex Assigned at Date Recorded 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 Provider Scan CV ECHO ORDERABLES documented in this encounter Visit Diagnoses Not on filedocumented in this encounter Care Teams Director Industrial Relations Relationship Specialty Start Date End Date No Ref-Primary, Physician PCP - General 06/21/13 12/13/13 Maged Aggarwal MD PCP - General Internal Medicine 12/14/13 03/16/15 [address] [place], [place] [phone] Leticia Armendariz MD PCP - General Internal Medicine 03/17/15 Leticia Armendariz MD PCP - Assigned PCP 06/30/14 11/07/18 [facility] [address] [place] [address] Leticia Armendariz MD Assigned PCP 06/30/14 01/06/19 [facility] [address] [place] [id number] documented as of this encounter
--- OUTSIDE RECORDS SUMMARY | 2022-06-25 13:57 | XMS_ITS | Encounter Summary ---
:1965 Author Organization [facility] Address [address] [place] [address] Care Team Providers Name Role Phone No Ref-Primary, Physician Primary Care Provider [phone] Encounter Details Date Type Department Care Team Description 06/26/[address] 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 documented in this encounter Results Heart Cath Left heart cath (06/26/2013 10:55 AM CDT) Anatomical Region Laterality Modality Other Specimen (Source) Anatomical Collection Method Collection Time Re ceived Time Location / / Volume Laterality 06/26/2013 10:55 AM CDT Narrative 08/07/2013 3:57 PM EMR TRAINER FENG MagañaJoce SPENSER PROCEDURES PERFORMED: ? 1. ?? Selective right and left co ronary angiography. ? 2. ?? Left heart catheterization. ? 3. ?? Left ventriculogram. ? 4. ?? Manual pressure held for he mostasis. ?? INDICATION: The patient is a 48-year-old gentleman with a recent new onset of atrial fibrillation cardioverte d to normal sinus rhythm who presented with chest discomfort. Cardiac catheterization is performed to exclude significant coronary artery d isease. NARRATIVE: The patient was brought to [facility] cardiac Television Producer and was prepped and draped in appropriate steril e manner. Following that, conscious sedation was provided using a modified Seldinger technique and a micropuncture kit access was obtai laine in the right common femoral artery. A 4 Latvian 11 cm sheath was placed without difficulty. Coronary angiography was the n performed using a #4 Latvian JL4.5 and a 4 Latvian 3DRC for the right coronary. Following that a 4 Latvian pigtail catheter was extended in place to cross the LV cavity. Pressure measurements were undertaken. A n LV gram was then performed. The catheter was then withdrawn to acces s for any gradient. All films were reviewed and manual pressure was he ld for hemostasis. MEDICATIONS: IV contrast 45 mL. ?? CONSCIENCE SEDATION: ??1% local lidocain e at groin. FINDINGS: ?? Coronary circulation is right dominant. ?? Left main: Left main coronary artery is a large caliber vessel without any significant coronary artery disease. Circumflex: Circumflex is a medium to la rge caliber vessel giving rise to two major obtuse marginal branch es and smaller branches proximally. There is mild nonocclusive d isease present within the circumflex and its branches. Left anterior descending: Left anterior descending artery is a large caliber vessel which extends and wraps a round the apex giving rise to two major obtuse marginal branches and s everal septal perforators. There is no significant disease present in the left anterior descending artery and its branches. Right coronary artery: Right coronary ar pawel is a large caliber vessel with slight anterior orientation in the origin. This vessel gives off a conus branch proximally, RV marginal branches in the mid portion and distally. It bifurcates into a small size PDA and medium size posterolateral branch. The mid port ion of the posterolateral branch has an eccentric 20% diffuse sten osis. ?? Hemodynamics: LVEDP is 5 mmHg. There is no significant gradient on pullback catheter in the aorta. LV is 108/3/5 mmH g. ?? LV gram: Ejection fraction is estimated to be 50-55%. No regional wall motion abnormalities are noted. On limited injection, there is no significant mitral regurgitation appr eciated. ?? ASSESSMENT: ? 1. ?? No significant obstructive coronary artery disease. ? 2. ?? Normal LV systolic function . ? 3. ?? Normal LVEDP. ?? RECOMMENDATION: The patient will go to [facility] for recovery, continued management from a secondary pr eventive standpoint and followup with cardiology as directed. ?? Procedure Note Jj Purdy MD - 08/07/2013F ormatting of this note might be different from the original. FENG DUEÑAS PROCEDURES PERFORMED: 1. Selective right and left coronary an giography. 2. Left heart catheterization. 3. Left ventriculogram. 4. Manual pressure held for hemostasis. INDICATION: The patient is a 48-year-old gentleman with a recent new onset of atrial fibrillation cardioverte d to normal sinus rhythm who presented with chest discomfort. Cardiac catheterization is performed to exclude significant coronary artery d isease. NARRATIVE: The patient was brought to [facility] cardiac Television Producer and was prepped and draped in appropriate steril e manner. Following that, conscious sedation was provided using a modified Seldinger technique and a micropuncture kit access was obtai laine in the right common femoral artery. A 4 Latvian 11 cm sheath was placed without difficulty. Coronary angiography was the n performed using a #4 Latvian JL4.5 and a 4 Latvian 3DRC for the right coronary. Following that a 4 Latvian pigtail catheter was extended in place to cross the LV cavity. Pressure measurements were undertaken. A n LV gram was then performed. The catheter was then withdrawn to acces s for any gradient. All films were reviewed and manual pressure was he ld for hemostasis. MEDICATIONS: IV contrast 45 mL. CONSCIENCE SEDATION: 1% local lidocaine at groin. FINDINGS: Coronary circulation is right dominant. Left main: Left main coronary artery is a large caliber vessel without any significant coronary artery disease. Circumflex: Circumflex is a medium to la rge caliber vessel giving rise to two major obtuse marginal branch es and smaller branches proximally. There is mild nonocclusive d isease present within the circumflex and its branches. Left anterior descending: Left anterior descending artery is a large caliber vessel which extends and wraps a round the apex giving rise to two major obtuse marginal branches and s everal septal perforators. There is no significant disease present in the left anterior descending artery and its branches. Right coronary artery: Right coronary ar pawel is a large caliber vessel with slight anterior orientation in the origin. This vessel gives off a conus branch proximally, RV marginal branches in the mid portion and distally. It bifurcates into a small size PDA and medium size posterolateral branch. The mid port ion of the posterolateral branch has an eccentric 20% diffuse sten osis. Hemodynamics: LVEDP is 5 mmHg. There is no significant gradient on pullback catheter in the aorta. LV is 108/3/5 mmH g. LV gram: Ejection fraction is estimated to be 50-55%. No regional wall motion abnormalities are noted. On limited injection, there is no significant mitral regurgitation appr eciated. ASSESSMENT: 1. No significant obstructive coronary artery disease. 2. Normal LV systolic function. 3. Normal LVEDP. RECOMMENDATION: The patient will go to [facility] floor for recovery, continued management from a secondary pr eventive standpoint and followup with cardiology as directed. Karuna Ramirez MD CV CARDIAC CATH ORDERABLES documented in this encounter Visit Diagnoses Not on filedocumented in this encounter Care Teams Junior Marketing Associate Relationship Specialty Start Date End Date No Ref-Primary, Physician PCP - General 06/21/13 12/13/13 documented as of this encounter
--- OUTSIDE RECORDS SUMMARY | 2022-06-25 13:57 | XMS_ITS | Encounter Summary ---
:1965 Author Organization [facility] Address [address] [place] [address] Care Team Providers Name Role Phone No Ref-Primary, Physician Primary Care Provider [phone] Maged Aggarwal MD Primary Care Provider Leticia Armendariz MD Primary Care Provider Leticia Armendariz MD Unavailable Leticia Armendariz MD Unavailable Encounter Details Date Type Department Care Team Description 06/26/2013 Historic Results [facility] Heart Unknown, [facility] [address] [place] [address] Social History Tobacco Use Types Packs/Day Years Used Date Smoking Tobacco: Former Cigarettes Quit : 06/26/2011 Alcohol Use Standard Drinks/Week Comments No 0 (1 standard drink = 0.6 oz pure alcoho l) Sex Assigned at Date Recorded 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 Provider Scan CV ELECTROPHYSIOLOGY ORDERAB LES documented in this encounter Visit Diagnoses Not on filedocumented in this encounter Care Teams Crester Relationship Specialty Start Date End Date No Ref-Primary, Physician PCP - General 06/21/13 12/13/13 Maged Aggarwal MD PCP - General Internal Medicine 12/14/13 03/16/15 [address] [place], [place] [address] Leticia Armendariz MD PCP - General Internal Medicine 03/17/15 Leticia Armendariz MD PCP - Assigned PCP 06/30/14 11/07/18 [email or web address] [address] [place] [id number] Leticia Armendariz MD Assigned PCP 06/30/14 01/06/19 [employer] [address] [place] [id number] documented as of this encounter
--- OUTSIDE RECORDS SUMMARY | 2022-06-25 13:57 | XMS_ITS | Encounter Summary ---
:1965 Author Organization [facility] Address [address] [place] [address] Care Team Providers Name Role Phone No Ref-Primary, Physician Primary Care Provider [phone] aMged Aggarwal MD Primary Care Provider Leticia Armendariz MD Primary Care Provider Nahum Lemus MD Unavailable Karuna Ramirez MD Unavailable [phone] Gloria Karime Irina DO Unavailable Tito Almonte MD Unavailable Leticia Armendariz MD Unavailable Leticia Armendariz MD Unavailable Ro Reyna NP Unavailable Kedar Rodriguez MD Unavailable Leticia Armendariz MD Unavailable Cristian Cooper MD Unavailable Torsten Rodriguez MD Unavailable Annabelle Shields CNP Unavailable Encounter Details Date Type Department Care Team Description 06/25/2013 Office Visit-[facility] Karuna Keane MD [address] [facility] [address] [place] [id number] [address] [phone] [facility] [address] [place] [id number] (Wo rk) Social History Tobacco Use Types Packs/Day Years Used Date Smoking Tobacco: Former Alcohol Use Standard Drinks/Week Comments No 0 (1 standard drink = 0.6 oz pure alcoho l) Sex Assigned at Date Recorded 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 [id number] DATE: 06/25/2013 LILIA[place] DUEÑAS DATE OF : 1965 AGE: [age] years old Referring Physician: IKER FANG CURRENT DIAGNOSES 1. - Atrial Fibrillation, 427.31 2. - Chest Pain Precordial, 786.51 ALLERGIES NKDA MEDICATIONS (prior to changes made today) 1. Aspirin Low Dose 81 mg tablet,delayed release (DR/EC), 1 p.o. daily 2. creatinine (bulk) 100 % Powder, Dose/instruction UNKNOWN 3. DHEA 50 mg capsule, 1 p.o. daily 4. metoprolol succinate 25 mg tablet extended release 24 hr, one tablet daily 5. Prilosec 20 mg capsule,delayed release(DR/EC), 1 p.o. daily 6. protein Powder, Dose/instruction UNKNOWN CHIEF COMPLAINTS Atrial Fibrillation and Cardiac Assessment HISTORY OF PRESENT ILLNESS REASON FOR CONSULTATION: New patient evaluation for chest pain and atrial fibrillation. Mr. Dueñas is a very pleasant 48-year-old gentleman who presents with concerns of episodic palpitations and chest tightness that he has had multiple times in the past but mild and short lived perhaps 6-12 times. He had a stress test six years ago that was negative. Tuesday night while he was at the gym during training he became light-headed and went down to his knees. His chest got tight and he felt a rapid heart beat shortness of breath and diaphoresis. He continued to train perhaps 20 more minutes and went home where he showered and ate with improvement and a milder sensation of chest tightnessand shortness of breath and a general feeling, however, that everything was out of whack includinghis heart rate. He went to bed and tried to go to work the next morning but continued to feel unwelland went to the emergency room where he was found to be in atrial fibrillation with heart rate at 99beats per minute. He was cardioverted successfully and released home. He states that he has chest dis comfort that comes and goes since the cardioversion that is not clearly exertional and will last 10-15 minutes at a time. His energy level has generally been much worse. He has not had clear palpitations. He does not have clear exertional symptoms with his work-out at least on Tuesday, however has not worked out over the weekend. He does not do aerobics only lifting. He describes the discomfort as a vague tightness. He has no history of known sleep apnea but does snore significantly. He has to use over the counter sleep aids. In terms of caffeine he drinks one cup of coffee in the morning and does drink a pre-workout drink before the gym containing 100 mg plus of caffeine. This is daily. He has no other cardioresp iratory complaints and denies PND, orthopnea, presyncope, syncope or pedal edema. He is not diabetic nor hypertensive. His lipid status is unknown. He has a prior 30-60 pack year tobacco abuse history having quit two years ago. Of note, he does have a history of cocaine abuse from the age of 20 to 27 with a relapse in his 30s of a year or bit more. He is not currently using. He has a family history of peripheral arterial disease his father having had arterial blockages in his 40s requiring intervention in his lower extremities. His EKG shows no ischemia or injury and his cardiac troponin in the emergency room was negative x 1. PAST HISTORY Past Medical Illnesses: previously healthy with no significant past history. 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 EYES denies diplopia, history of glaucoma or visual field defects. EARS, NOSE, THROAT, MOUTH denies any hearing loss, epistaxis, hoarseness or difficulty speaking. RESPIRATORY shortness of breath with chest pain episode last week, history of asthma CARDIOVASCULAR ER visit 06/21 chest pain, light headedness, during weightlifting 06/20, chest tightness, palpitations, sweating, lasted 45-60 minutes ABDOMINAL history of GERD MUSCULOSKELETAL denies any history of arthritic symptoms or back problems. NEUROLOGICAL denies any history of recurrent headaches, strokes, TIA, or seizure disorder. PSYCHIATRIC sleep disturbance ENDOCRINE denies any history of thyroid disease or diabetes mellitus. HEMATOLOGICAL/IMMUNOLOGIC denies any food allergies, seasonal allergies, bleeding disorders or lymphadenopathy. PHYSICAL EXAMINATION VITAL SIGNS: Blood Pressure: 114/82Sitting, Left arm, large cuff Pulse- 88.00/min. Weight- 206.40 lbs. Height- 69.5 BMI Measurement: 30 CONSTITUTIONAL cooperative, alert and oriented,well developed, well nourished, in no acute distress. SKIN warm and dry to touch, no apparent skin lesions, or masses noted. HEAD normocephalic, atraumatic EYES Pupils equal and round, conjunctivae and lids unremarkable, sclera white, no xanthalasma ENT no pallor or cyanosis, dentition good NECK carotid pulses are full and equal bilaterally, JVP normal, no carotid bruit, no thyromegaly CHEST normal symmetry, no tenderness to palpation, normal respiratory excursion, no intercostal retraction, no use of accessory muscles, clear to auscultation and percussion. CARDIAC regular rhythm, S1 normal, S2 normal, No S3 or S4, Apical impulse not displaced, no murmurs, gallopsor rubs detected. ABDOMEN abdomen soft, bowel sounds normoactive, no masses, no hepatosplenomegaly, non- tender, no bruits PERIPHERAL PULSES pulses full and equal in all extremities, no bruits auscultated. EXTREMITIES & BACK no deformities, clubbing, cyanosis, erythema or edema observed. There are no spinal abnormalities noted. Normal muscle strength and tone. NEUROLOGICAL no gross motor deficits noted, affect appropriate, oriented to time, person and place. MEDICATIONS UPDATED/STARTED TODAY: Aspirin Low Dose 81 mg tablet,delayed release (DR/EC), 1 p.o. daily, #0 (Zero) creatinine (bulk) 100 % Powder, Dose/instruction UNKNOWN, #0 (Zero) DHEA 50 mg capsule, 1 p.o. daily, #0 (Zero) metoprolol succinate 25 mg tablet extended release 24 hr, one tablet daily, #30 tablets Prilosec 20mg capsule,delayed release(DR/EC), 1 p.o. daily, #0 (Zero) protein Powder, Dose/instruction UNKNOWN, #0 (Zero) IMPRESSIONS/PLAN A pleasant 48-year-old gentleman with an episode of atrial fibrillation and chest discomfort, diaphoresis and shortness of breath. He has had chest discomfort off and on since the time of his cardioversion. It is unclear whether this is related to runs of atrial fibrillation though interestingly his rate was not very fast at the time. I would be concerned for angina that could have prompted atrial fibrillation particularly in light of his prior cocaine and tobacco history. It is not entirely typicalhowever. We have discussed possible investigation such as stress testing, CT coronary angiography and cardiac catheterization and given my somewhat higher pretest suspicion but the atypical nature of the pain I think we can still do this as an outpatient, however would do a cardiac catheterization to exclude obstructive coronary disease. He is taking an aspirin and we will add metoprolol to his medical regimen to be taken at night. I will order overnight oximetry as he is reticent to do a sleep study. He was also reticent to consider admission to the hospital, however, for his chest pain. We will do an event monitor to assess theburden of his Afib as well as rate and need for continuous rate control and also an echocardiogram for structural evaluation. At this point he is CHADS 0 risk score, however, certainly there could be findings on echo that would suggest higher risk of stroke. We will arrange the cath as soon as possible. We have discussed a 1 in a 1,000 risk of , stroke, heart failure or need for emergent bypass or other severe morbility and he has verbalized understanding and he agrees to proceed. It is a pleasure being involved in this pleasant gentlemans care. Total time 45 minutes 40 in coordination care and counseling. TODAYS ORDERS 1. 2D, color flow, doppler 1 Day 2. Pre Cath Labs 3. Left Heart Cath 4. Cardionet MCOT Attach in 1-7 days 5. cath tomorrow please.Page me if not poss 6. Return Visit 2 weeks 7. Lipid profile/ALT with pre-cath labs 8. AST with pre-cath labs 9. LINCARE Today Karuna Ramirez M.D. documented in this encounter Plan of Treatment Not on filedocumented as of this encounter Visit Diagnoses Not on filedocumented in this encounter Care Teams Diagnostic Tech Relationship Specialty Start Date End Date No Ref-Primary, PCP - General 06/21/13 12/13/13 Physician Maged Aggarwal, PCP - General Internal Medicine 12/14/1308/19 [address] [place], [place] [phone] Leticia Armendariz, PCP - General Internal Medicine 03/17/15 Leticia Armendariz, PCP - Assigned PCP 06/30/14 MD Faby Johnson [address] [place] [id number] Nahum Lemus MD 09/16/16 [facility] [address] [facility] [facility] [address] [place] [phone] Karuna Ramirez MD Cardiology 09/16/16 MD Erendira Karime Castro, Referring Physician Orthopedics 05/13/17 DO [facility] [address] [id number] Tito Almonte MD MD Orthopedics 05/13/17 [address] [facility] [address] [place], [place] [phone] Leticia Armendariz, Assigned PCP 06/30/14 01/06/19 MD Faby Johnson [address] [place] [address] [id number] Ro Reyna, Assigned PCP 01/07/19 [employer] [address] [place], [place] [phone] Kedar Rodriguez MD Assigned PCP 08/26/19 12/29/19 [address] [place], [place] [phone] Leticia Armendraiz, Assigned PCP 12/30/19 02/07/21 [facility] [place] [address] [place] [phone] Cristian Cooper MD Assigned Heart and 06/27/20 07/11/21 [address], Vascular Provider [address] [place], [place] [phone] Torsten Rodriguez MD Assigned Musculoskeletal 08/24/20 02/19/22 [address] [facility] [place] [address] Annabelle Shields, EDISON Assigned PCP 02/08/21 [address] [place] [address] documented as of this encounter
--- OUTSIDE RECORDS SUMMARY | 2022-06-25 13:57 | XMS_ITS | Encounter Summary ---
:1965 Author Organization [facility] Address [address] [place] [address] Care Team Providers Name Role Phone No Ref-Primary, Physician Primary Care Provider [phone] Reason for Visit (Routine) - Closed Specialty Diagnoses / Procedures Referred By Contact Refer red To Contact Diagnoses Chest Pain Rh Cath Ir Pre/Post Rm Procedures [facility] [address] [place], [place] [address] Phone: Referral ID Status Reason Start Date Expiration Date Visits Requ ested Visits Authorized [id number] Closed 06/25/2013 06/25/2014 1 1 Encounter Details Date Type Department Care Team Description 06/26/2013 Hospital Encounter [facility] Kirk Ramirez post coronary [place] [employer] Karuna Krishna MD angiogram (Primary [address] [facility] HEART INST OF Dx) [facility] [place] [id number] [facility] [phone] [place] [address] Social History Tobacco Use Types Packs/Day Years Used Date Smoking Tobacco: Former Cigarettes Quit : 06/26/2011 Alcohol Use Standard Drinks/Week Comments No 0 (1 standard drink = 0.6 oz pure alcoho l) Sex Assigned at Date Recorded 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 Last Filed Vital Signs Vital Sign Reading Time Taken Comments Blood Pressure 134/77 06/26/2013 12:30 PM CDT Pulse - - Temperature - - Respiratory Rate 17 06/26/2013 12:30 PM CDT Oxygen Saturation 94% 06/26/2013 12:30 PM CDT Inhaled Oxygen Concentration - - Weight 93.9 kg (207 lb) 06/26/2013 9:50 AM CDT Height 175.3 cm (5' 9) 06/26/2013 9:50 AM CDT Body Mass Index 30.57 06/26/2013 9:50 AM CDT documented in this encounter Discharge Instructions Discharge InstructionsNarcisa Robles RN - 06/26/2013 12:23 PM CDT Going Home after a Coronary Angiogram Patient Name: Feng Perez Date of Procedure: June 26, 2013 Doctor: Dr. Chery Purdy After you go home: ?? Have an adult stay with you for 24 hours. ?? Drink plenty of fluids. ?? You may eat your normal diet, unless your doctor tells you otherwise. ?? For 24 hours: ?? Relax and take it easy. ?? Do NOT smoke. ?? Do NOT make any important or legal decisions. ?? Do NOT drive or operate machines at home or at work. ?? Do NOT drink alcohol. ?? Remove the Band-Aid after 24 hours. If there is minor oozing, apply another Band-aid and remove it after 12 hours. ?? For 2 days, do NOT have sex or do any heavy exercise. ?? Do NOT take a bath, or use a hot tub or pool for at least 3 days. You may shower. Care of groin site It is normal to have a small bruise or lump at the site. ?? Do not scrub the site. ?? For the first 2 days: Do not stoop or squat. When you cough, sneeze or move your bowels, hold your hand over the puncture site and press gently. ?? Do not lift more than 10 pounds for at least 3 to 5 days. ?? Do not use lotion or powder near the puncture site for 3 days. If you start bleeding from the site in your groin, lie down flat and press firmly on the site. Call your doctor as soon as you can. Medicines ?? If you have started taking Plavix or Effient, do not stop taking it until you talk to your heart doctor (solution consultant). ?? If you are on metformin (Glucophage), do not restart it until you have blood tests (within 2 to 3days after discharge). When your doctor tells you it is safe, you may restart the metformin. ?? If you have stopped any other medicines, check with your nurse or provider about when to restart them. Call 911 right away if you have bleeding that is heavy or does not stop. Call your doctor if: ?? You have a large or growing hard lump around the site. ?? The site is red, swollen, hot or tender. ?? Blood or fluid is draining from the site. ?? You have chills or a fever greater than 101??F (38??C). ?? Your leg or arm feels numb or cool. ?? You have hives, a rash or unusual itching. Remember to have Lipid panel done on Tuesday morning. Make sure you are fasting. [facility]: [phone] (7 days a week) We will contact you tomorrow for follow-up. Number where we can reach you: [phone] documented in this encounter Medications at Time [...] every morning documented as of this encounter Progress Notes Narcisa Robles RN - 06/26/2013 12:43 PM CDT Patient ambulated in unit with no problem groin site remained intact no hematoma. Discharge instructions given to and patient . Narcisa Robles RN - 06/26/2013 12:34 PM CDT Patient c/o right foot numb but after moving it he had normal feeling in right foot. Great pulse to right foot and great circulation. Foot warm and pink. Narcisa Robles RN - 06/26/2013 9:57 AM CDT Patient does not want to feel pain he has a low pain tolerance. documented in this encounter Procedure Notes Jj Purdy MD - 06/26/2013 10:39 AM CDT Interventional Cardiology No significant CAD LVEDP: 5 mmHg LV Gram: EF ~ 55% Jj Purdy MD documented in this encounter Plan of Treatment Not on filedocumented as of this encounter Procedures Procedure Name Priority Date/Time Associated Diagnosis Comme nts HIM IMAGING SCAN Routine 06/26/2013 10:57 AM CDT EKG 12-LEAD, Routine 06/26/2013 9:22 AM Results f or this TRACING ONLY CDT procedure are i n the results section. documented in this encounter Results Cardiac Angiogram - [facility] Imaging Scan (06/26/2013 10:57 AM CDT) Anatomical Region Laterality Modality Other Narrative This result has an attachment that is no t available. Karuna Ramirez MD IMG DIAGNOSTIC IMAGING ORDER [place] EKG 12-lead, tracing only (06/26/2013 9:22 AM CDT) [facility] gist Method Time Signature Interpretation ECG Click View RADIOLOGY Image link RESULTS to view waveform and result Specimen (Source) Anatomical Collection Method Collection Time Re ceived Time Location / / Volume Laterality 06/26/2013 9:22 AM CDT Karuna Ramirez MD ECG ORDERABLES Performing Organization Address City/State/ZIP Code Phon e Number RADIOLOGY RESULTS documented in this encounter Visit Diagnoses Diagnosis Status post coronary angiogram - Primary Other postprocedural status documented in this encounter Administered Medications Inactive Administered Medications - up to 3 most recent administrations Medication Order MAR Action Action Date Dose Rate Site 0.9 % sodium chloride IV New Bag 06/26/2013 9:35 AM CDT 1,000 mLs 150 mL/hr solution at 150 mL/hr, Intravenous, CONTINUOUS, 150 mL/hr IV for 2 hours prior to cardiac bottle labeler procedure, then decrease to 75 mL/hr to run throughout the procedure. Start at 0800 for inpatients., Cardiac Pre-procedure, Starting on Tue06/26/13 at 0915, Until Tue06/26/13 at 1058 0.9 % sodium chloride IV New Bag 06/26/2013 11:01 AM CDT 1,000 mLs 75 mL/hr solution at 75 mL/hr, Intravenous, CONTINUOUS, Administer over 2 Hours, or until patient is ambulating. Post coronary angiogram diagnostic exams. , Cardiac Post-procedure, Starting on Tue06/26/13 at 1115, Until Tue06/26/13 at 1517 aspirin EC tablet 325 mg Given 06/26/2013 9:35 AM CDT 324 mg 325 mg, Oral, DAILY, First dose on Tue06/26/13 at 0915, Including day before and day of cardiac bottle labeler procedure (except if pt. Allergic) if not already given today in ED for patients arriving on day of cardiac bottle labeler procedure., Cardiac Pre-procedure fentaNYL (SUBLIMAZE) injection 25-50 mcg Given 06/26/2013 10:34 AM CDT 100 mcg 25-50 mcg, Intravenous, EVERY 2 MIN PRN, moderate to severe pain, other, when verbally ordered by prescriber during the procedure., Starting on Tue06/26/13 at 1007, Doses can be exceeded under direct oversight of the patient by physician., Cardiac Intra-procedure LORazepam (ATIVAN) tablet 0.5 mg Given 06/26/2013 9:35 AM CDT 0.5 mg 0.5 mg, Oral, EVERY 2 HOURS PRN, anxiety, prior to bottle labeler procedure, Starting on Tue06/26/13 at 0905, For 2 doses, Give on nursing unit , Cardiac Pre-procedure midazolam (VERSED) injection 0.5-2 mg Given 06/26/2013 10:33 AM CDT 3 mg 0.5-2 mg, Intravenous, EVERY 2 MIN PRN, other, when verbally ordered by prescriber during the procedure., Starting on Tue06/26/13 at 1007, Doses can be exceeded under direct oversight of the patient by physician., Cardiac Intra-procedure documented in this encounter Active and Recently Administered Medications Times are shown in CDT. Scheduled Medication Order 06/24/2013 06/25/2013 06/26/2013 aspirin EC tablet 325 mg (CANCELED) 0935 (Given - Provider: Narcisa Robles RN) 325 mg, Oral, DAILY, First dose on Tue at 0915, Including day before and day of cardiac bottle labeler procedure (except if pt. Allergic) if not already given today in ED for patients arriving on day of cardiac bottle labeler procedure., Cardiac Pre-procedure Continuous Medication Order 06/24/2013 06/25/2013 06/26/2013 0.9 % sodium chloride IV solution (CANCELED) 0935 (New Bag - Provider: Narcisa Robles RN) at 150 mL/hr, Intravenous, CONTINUOUS, 1 50 mL/hr IV for 2 hours prior to cardiac bottle labeler procedure, then decrease to 75 mL/hr to run throughout the procedure. Start at 0800 for inpatients., Cardiac Pre-procedure 0.9 % sodium chloride IV solution (CANCELED) 1101 (New Bag - Provider: Narcisa Robles RN) at 75 mL/hr, Intravenous, CONTINUOUS, fo r 2 Hours, or until patient is ambulating. Post coronary angiogram diagnostic exams. , Cardiac Post-procedure PRN Medication Order 06/24/2013 06/25/2013 06/26/2013 fentaNYL (SUBLIMAZE) injection 25-50 mcg (CANCELED) 1034 (Given - Provider: Marixa Kraus RN) 25-50 mcg, Intravenous, EVERY 2 MIN PRN, Starting Tue06/26/13 at 1007, moderate to severe pain, other, when verbally ordered by prescriber during the procedure., Doses can be exceeded under direct over sight of the patient by physician., Cardiac Intra-procedure LORazepam (ATIVAN) tablet 0.5 mg (CANCELED) 0935 (Given - Provider: Narcisa Robles, [place]) 0.5 mg, Oral, EVERY 2 HOURS PRN, anxiety , prior to bottle labeler procedure, Starting Tue06/26/13 at 0905, For 2 doses, Give on nursing unit , Cardiac Pre-procedure midazolam (VERSED) injection 0.5-2 mg (CANCELED) 1033 (Given - Provider: Marixa Kraus RN) 0.5-2 mg, Intravenous, EVERY 2 MIN PRN, Starting Tue06/26/13 at 1007, other, when verbally ordered by prescriber during the procedure., Doses can be exceeded under direct oversight of the patient by physician., Cardiac Intra-procedure documented in this encounter Care Teams Supervisor [employer] Relationship Specialty Start Date End Date No Ref-Primary, Physician PCP - General 06/21/13 12/13/13 documented as of this encounter
--- OUTSIDE RECORDS SUMMARY | 2022-06-25 13:57 | XMS_ITS | Encounter Summary ---
:1965 Author Organization [facility] Address [address] [place] [id number] Care Team Providers Name Role Phone No Ref-Primary, Physician Primary Care Provider Reason for Visit (Routine) - Closed Specialty Diagnoses / Procedures Referred By Contact Refer red To Contact Cardiology Diagnoses ECHO COMPLETE ADULT W/O CONTRAST Procedure Notes: chest pain precordial Zz Rh Echocardiography Procedures RADIOLOGY [address], [place] [address] Phone: Referral ID Status Reason Start Date Expiration Date Visits Requ ested Visits Authorized [id number] Closed 06/25/2013 06/25/2014 1 1 Encounter Details Date Type Department Care Team Description 06/29/2013 Hospital Encounter [facility], Dr Gee Cardiopulmonary Karuna Ramirez MD HEART [address] [place], [place] [id number] [address] [place] [address] Social History Tobacco Use Types Packs/Day Years Used Date Smoking Tobacco: Former Cigarettes Quit : 06/26/2011 Alcohol Use Standard Drinks/Week Comments No 0 (1 standard drink = 0.6 oz pure alcoho l) Sex Assigned at Date Recorded Male 08/13/2020 9:06 AM [employer] WORK[employer] documented as of this encounter Medications at [...] documented as of this encounter Progress Notes Noah Non-Provider - 07/02/2013 4:44 PM CDT documented in this encounter Plan of Treatment Not on filedocumented as of this encounter Procedures Procedure Name Priority Date/Time Associated Diagnosis Comme nts ECHO COMPLETE Routine 06/29/2013 9:06 AM Results for this CDT procedure are i n the results section . documented in this encounter Results Echocardiogram (06/29/2013 9:06 AM CDT) [facility] Method Time Signature [facility] Interpretation Summary RESULTS Left ventricular systolic function is low normal. The visual ejection fraction is estimated at 50-55%. The left ventricle is normal in size. There is mild concentric left ventricular hypertrophy. No regional wall motion abnormalities noted. Doppler interrogation does not demons trate significant stenosis or insufficiency involving cardiac valves. PatientHeight: 69 in PatientWeight: 207 lbs SystolicPressure: 140 mmHg DiastolicPressure: 90 mmHg HeartRate: 65 bpm BSA 2.1 m^2 Left Ventricle The left ventricle is normal in size. There is mild concentric left ventricular hypertrophy. Left ventricular systolic function is low normal. The visual ejection fraction is estimated at 50-55%. No regional wall motion abnormalities noted. There is no thrombus seen in the left ventricle. Right Ventricle The right ventricle is normal in structure, function and siz e. There is no mass or thrombus in the right ventricle. Atria Normal left atrial size. Right atrial size is normal. There is no atrial shunt seen. Mitral Valve The mitral valve leaflets appear normal. There is no evidenc e of stenosis, fluttering, or prolapse. There is no mitral regurgitation noted. There is no mitral valve stenosis. Tricuspid Valve Normal tricuspid valve. The right ventricular systolic pressure is approximated at 27 mmHg plus the right atrial pressure. Right ventricle systolic pressure estimate normal. There is mild (1+) tricuspid regurgitation. There is no tricuspid stenosis. Aortic Valve The aortic valve is trileaflet. No aortic regurgitation is present. No aortic stenosis is present. Pulmonic Valve The pulmonic valve is not well seen, but is grossly normal. There is trace pulmonic valvular regurgitation. There is no pulmonic valvular stenosis. Vessels The aortic root is normal size. Normal size ascending aorta. The IVC is normal in size and reactivity with respirat ion, suggesting normal central venous pressure. The pulmonary artery is normal size. Pericardium The pericardium appears normal. There is no pleural effusion. Rhythm The rhythm was normal sinus. Procedure Complete Echo Adult. MMode 2D Measurements & Calculations IVSd: 1.2 cm LVIDd: 5.2 cm LVIDs: 4.1 cm LVPWd: 1.3 cm FS: 21 % LV mass(C)d: 252 grams Ao root diam: 2.9 cm LA dimension: 3.6 cm asc Aorta: 3.2 cm LA/Ao: 1.2 Doppler Measurements & Calculations MV E point: 77 cm/sec MV A point: 65 cm/sec MV E/A: 1.2 MV dec time: 0.18 sec TR Max neyda: 261 cm/sec TR Max P mmHg Interpreting Physician: ??Feng Valencia, ??electronically signed on 06-29-2013 09:26:41 Anatomical Region Laterality Modality Echocardiography Specimen (Source) Anatomical Collection Method Collection Time Re ceived Time Location / / Volume Laterality 06/29/2013 9:06 AM CDT Karuna Ramirez MD CV ECHO ORDERABLES documented in this encounter Visit Diagnoses Not on filedocumented in this encounter Care Teams Building Analyst/Supervisor Relationship Specialty Start Date End Date No Ref-Primary, Physician PCP - General 06/21/13 12/13/13 documented as of this encounter
--- OUTSIDE RECORDS SUMMARY | 2022-06-25 13:57 | XMS_ITS | Encounter Summary ---
:1965 Author Organization [facility] Address [address] [place] [address] Care Team Providers Name Role Phone No Ref-Primary, Physician Primary Care Provider [phone] Reason for Visit Reason Comments Chest Pain Encounter Details Date Type Department Care Team Description 06/21/2013 Emergency [facility] RenéRaulMarixa Atrial fibrillation [facility] Emergency Dep diandra Ramirez MD (H) (Primary Dx) [address] [facility] [place], [place] [address] [phone] [place], [place] [address] (Wo rk) Social History Tobacco Use Types Packs/Day Years Used Date Smoking Tobacco: Former Alcohol Use Standard Drinks/Week Comments No 0 (1 standard drink = 0.6 oz pure alcoho l) Sex Assigned at Date Recorded 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 Last Filed Vital Signs Vital Sign Reading Time Taken Comments Blood Pressure 135/80 06/21/2013 2:40 PM CDT Pulse - - Temperature 36.4 ??C (97.6 ??F) 06/21/2013 1:03 PM CDT Respiratory Rate 18 06/21/2013 2:40 PM CDT Oxygen Saturation 98% 06/21/2013 2:40 PM CDT Inhaled Oxygen Concentration - - Weight 97.5 kg (215 lb) 06/21/2013 1:03 PM CDT Height 175.3 cm (5' 9) 06/21/2013 1:03 PM CDT Body Mass Index 31.75 06/21/2013 1:03 PM CDT documented in this encounter Discharge Instructions Discharge InstructionsMarixa Merritt MD - 06/21/2013 2:42 PM CDT Please make an appointment to follow up with [facility] Cardiology or other interactive digital media specialist within 1-2 weeks to discuss continued management and evaluation of atrial fibrillation. Take one aspirin (81mg) a day until follow-up with Cardiology who can advise on continuing this medication or not. AttachmentsThe following attachments cannot be sent through Care Everywhere. ATRIAL FIBRILLATION ([facility])documented in this encounter Progress Notes Noah Provider - 06/22/2013 3:00 PM CDT Dee Gao RT - 06/21/2013 2:05 PM CDT Breathing assistance for cardioversion. Patient on 7L oxymask spo2 99%. Breathing maintained throughout procedure; co2 38-42 mm hg. No jaw thrust needed. Remains on 3L nc post; spo2 96%. Dee Paris 06/21/2013 documented in this encounter OR Notes OR Anesthesia - Noah Provider - 06/22/2013 3:00 PM CDT documented in this encounter ED Notes Samantha Hoyos RN - 06/21/2013 2:58 PM CDT Patient denies any pain or chest discomfort at this time. VSS; pt verbalizes understanding of teachings and has no further questions or concerns at this time. Pt alert and oriented x 4; ambulates independently. Samantha Hoyos RN - 06/21/2013 1:16 PM CDT Labs drawn with IV insertion and held Samantha Hoyos RN - 06/21/2013 1:06 PM CDT Patient presents to ED with chest tightness and shortness of breath that started last evening. Pt denies any cardiac history of any kind. Pt denies nausea or lightheadedness. Marixa Merritt MD - 06/21/2013 1:03 PM CDT History Chief Complaint: Chest Pain HPI Feng Perez is a 48 year old male who presents with chest pain. Yesterday evening the patient states he was at the gym and felt short of breath. He went home and began to experience a chest tightness (more so than pain) and states he just showered and went to bed. This morning the patient states he woke up ~8am feeling dizzy and light headed and my whole chest was really tight. It was hard for me to breath still and I could really feel my heart. It felt like it would pound out of the chest.Sensation does not radiate. No associated diaphoresis or nausea. Took no medications for it. The patient notes he has a cup of coffee everyday and supplements but denies any other medications. The patient voices no other concerns at this time. Similar episode happened once in the past but resolved on its own. Allergies: NKDA Medications: Supplements Past Medical History: History reviewed. No significant past medical history. Past Surgical History: The patient does not have any past pertinent surgical history. Family History: The patient denies a pertinent family history. 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 Cardiovascular: Positive for chest pain and palpitations. Neurological: Positive for dizziness and light-headedness. All other systems reviewed and are negative. Physical Exam First Vitals: Blood pressure: 175/97 Pulse: 72 Respiration rate: 18 SpO2: 100% Temperature: 97.6 Physical Exam General: Cooperative, appears in no distress Eyes: Sclera white; Pupils are equal and round ENT: External ears and nares normal Neck: No goiter CV: Irregularly irregular No murmur Resp: Breath sounds clear and equal bilaterally GI: Abdomen is soft, non-tender, non-distended MS: Moves all extremities Skin: Warm and dry, no BLE edema Neuro: Speech is normal and fluent. No apparent deficit. Emergency Department Course ECG: @ 1307 Rate 99 bpm. NM interval * ms. QRS duration 90 ms. QT/QTc 312/400 ms. P-R-T axes 96. Notes: Atrial fibrillation. Rightward axis. Abnormal ECG. Time read 1307. ECG: @ 1404 Rate 85 bpm. NM interval 150 ms. QRS duration 88 ms. QT/QTc 322/383 ms. P-R-T axes 95. Notes: Normal sinus rhythm with sinus arrhythmia. Rightward axis. Borderline ECG. Successful cardioversion as compared to previous ECG seen above. Time read 1405. Imaging: XR Chest 2 Views: Negative. Reading per Dr. Merritt. Radiographic findings were communicated with the patient who voiced understanding of the findings. Procedures: Cardioversion/Defibrillation: Performed by Dr. Merritt Pre Procedure Rhythm: Atrial Fibrillation Consent: Consent given by: Patient who states understanding of the procedure being performed after discussing the risks, benefits and alternatives. Time out at 1351: Immediately prior to procedure a time out was called to verify the correct patient, procedure, equipment, other sales support worker and site/side marked as required. Sedation: Patient sedated with Etomidate Vital signs, airway and pulse oximetry were monitored and remained stable throughout the procedure and sedation was maintained until the procedure was complete. The patient was monitored with staff at the bedside until he fully regained consciousness. Procedure: The patient was placed in the supine position and the chest area was exposed. The cardioversion pads were applied in the standard manner and configuration. The Biphasic defibrillator was set on the Synchronized mode and the patient was shocked at 120 Joules, resulting in Sinus Rhythm. The Patient tolerated the procedure well with no immediate complications. ECG Post Procedure: EKG Number: 2. Done at [address] Merritt Symptoms at time of EKG: None Rhythm: Normal sinus rhythm with sinus arrhythmia (see above) Rate 85 bpm. NM interval 150 ms. QRS duration 88 ms. QT/QTc 322/383 ms. P-R-T axes 95. Notes: Normal sinus rhythm with sinus arrhythmia. Rightward axis. Borderline ECG. Successful cardioversion as compared to previous ECG seen above. Time read 1405. Clinical Impression: successful cardioversion Laboratory: CBC: WBC 10.0 (WNL) HGB 17.8 (high) PLT 249 (WNL) Rest WNL BMP: Cr 1.37 (high) GFR 55 (low) Rest WNL Magnesium: 2.5 (high) TSH: 0.54 (WNL) T4: 0.81 (WNL) Troponin POCT: 0.01 (WNL) Interventions: NS, 1 L, IV ASA, 325 mg, PO Amidate, 9.8 mg, IV Fentanyl, 50 mcg, IV ED Course: The patient was roomed. The patient was placed on pulse oximetry. The patient's medical charts were reviewed and I examined the patient. Findings and plan explained to the Patient. Patient discharged home, status improved, with instructions regarding supportive care, medications, and reasons to return as well as the importance of close follow-up was reviewed. Impression & Plan Medical Decision Making: This patent presents to the ED with less than 24 hours of shortness of breath and chest tightness. His initial ECG shows atrial fibrillation which certainly matches the symptoms that he is having. Workup was conducted looking for underlying causes or side effects from this, specifically evaluating for electrolyte abnormalities, hyperthyroid state, intrathoracic process such as pneumonia or pneumothorax, and demand ischemia with troponin elevation. None of these altered etiologies or causes were found. 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 He was consented for cardioversion which was conducted as above. There are several studies suggesting no increased risk of stroke when performed within 48 hours of symptom onset. He did have some upper extremity muscle spasms after the etomidate but these resolved within a few minutes and repeat ECG demonstrated anormal sinus rhythm. He was given aspirin here. He has a CHADS2 score of zero and does not need Couma din anticoagulation. I am going to have him start a baby aspirin at this point and have him follow up with cardiology. He understands aspirin therapy may stop depending on their recommendations. Diagnosis: 1. Atrial fibrillation ISoraida, am serving as a scribe on 06/21/2013 at 1:03 PM to personally document servicesperformed by Dr. Matamoros based on my observations and the provider's statements to me. Marixa Merritt MD 06/21/13 1600 documented in this encounter Miscellaneous Notes Initial Assessments - Noah, Non-Provider - 06/22/2013 3:05 PM CDT documented in this encounter Plan of Treatment Not on filedocumented as of this encounter Procedures Procedure Name Priority Date/Time Associated Comments Diagnosis XR CHEST 2 VIEWS STAT 06/21/2013 1:39 PM Resul ts for this CDT procedure are i n the results section. TROPONIN POCT Routine 06/21/2013 1:11 PM Results for this CDT procedure are i n the results section. CBC WITH PLATELETS & STAT 06/21/2013 1:08 PM R esults for this DIFFERENTIAL CDT procedure are i n the results section. TSH STAT 06/21/2013 1:08 PM Results f or this CDT procedure are i n the results section. T4 FREE STAT 06/21/2013 1:08 PM Results f or this CDT procedure are i n the results section. MAGNESIUM STAT 06/21/2013 1:08 PM Results f or this CDT procedure are i n the results section. BASIC METABOLIC PANEL STAT 06/21/2013 1:08 PM Results for this CDT procedure are i n the results section. EKG 12-LEAD, TRACING STAT 06/21/2013 1:07 PM R esults for this ONLY CDT procedure are i n the results section. documented in this encounter Results XR Chest 2 Views (06/21/2013 1:39 PM CDT) Anatomical Region Laterality Modality Chest Computed Radiography Specimen (Source) Anatomical Location Collection Method / Collectio n Time Received Time / Laterality Volume Impressions 06/21/2013 1:52 PM CDT IMPRESSION: Essentially negative. SHANDA ZHENG MD Narrative 06/21/2013 1:52 PM CDT CHEST, PA AND LATERAL ??- ??06/21/2013 1:39 PM HISTORY: ??Atrial fibrillation. COMPARISON: None. FINDINGS: Tiny calcified granuloma later al left mid-lung, the lungs are otherwise expanded and clear. Heart and mediastinal contour are unremarkable. ? Procedure Note Shanda Zheng MD - 06/21/2013Forma tting of this note might be different from the original. CHEST, PA AND LATERAL - 06/21/2013 1:39 PM HISTORY: Atrial fibrillation. COMPARISON: None. FINDINGS: Tiny calcified granuloma later al left mid-lung, the lungs are otherwise expanded and clear. Heart and mediastinal contour are unremarkable. IMPRESSION IMPRESSION: Essentially negative. SHANDA ZHENG MD Marixa Merritt MD IMG DIAGNOSTIC IMAGING ORDER [place] Troponin POCT (06/21/2013 1:11 PM CDT) athologist Signature Troponin I 0.01 0.00 - 0.10 POINT OF CARE ug/L TEST, HANDHELD METER Specimen Anatomical Collection Method Collection Time Receive d Time (Source) Location / / Volume Laterality 06/21/2013 1:11 PM 3 1:25 CDT PM CDT Marixa Merritt MD LAB - ENTER/EDIT POCT Performing Organization Address City/State/ZIP Code Phon e Number [facility] POINT OF CARE TEST, HANDHELD METER POINT OF CARE TEST, HANDHELD METER T4 free (06/21/2013 1:08 PM CDT) athologist Signature T4 Free 0.81 0.70 - 1.85 [facility] ng/dL [facility] Specimen Anatomical Collection Method Collection Time Receive d Time (Source) Location / / Volume Laterality Blood specimen 06/21/2013 1:08 PM 013 1:22 (specimen) CDT PM CDT Marixa Merritt MD LAB - BLOOD ORDERABLES Performing Organization Address City/State/ZIP Code Phon e Number [facility] [address] [place], [place] [address] [facility] TSH (06/21/2013 1:08 PM CDT) athologist Signature TSH 0.54 0.4 - 5.0 [facility] mU/L [facility] Specimen Anatomical Collection Method Collection Time Receive d Time (Source) Location / / Volume Laterality Blood specimen 06/21/2013 1:08 PM 013 1:22 (specimen) CDT PM CDT Mraixa Merritt MD LAB - BLOOD ORDERABLES Performing Organization Address City/[facility]/ZIP Code Phon omar Shaffer [facility] [address] [place], [place] [address] [facility] (ABNORMAL) Magnesium (06/21/2013 1:08 PM CDT) P athologist Signature Magnesium 2.5 (H) 1.6 - 2.3 [place] mg/dL [facility] Specimen Anatomical Collection Method Collection Time Receive d Time (Source) Location / / Volume Laterality Blood specimen 06/21/2013 1:08 PM 013 1:22 (specimen) CDT PM CDT Marixa Merritt MD LAB - BLOOD ORDERABLES Performing Organization Address City/[facility] Phon omar Walsh [facility] [address] [place], [place] [address] [facility] (ABNORMAL) Basic metabolic panel (06/21/2013 1:08 PM CDT) Analysis Performed At Patho logist Time Signature Sodium 143 133 - 144 [place] mmol/L [facility] Potassium 4.3 3.4 - 5.3 [place] mmol/L [facility] Chloride 99 94 - 109 [place] mmol/L [facility] Carbon Dioxide 31 20 - 32 [place] mmol/L [facility] Anion Gap 12 6 - 17 [place] mmol/L [facility] Glucose 75 60 - 99 [place] mg/dL [facility] Urea Nitrogen 17 5 - 24 [place] mg/dL [facility] Creatinine 1.37 (H) 0.66 - [place] 1.25 mg/dL [facility] GFR Estimate 55 (L) >60 [place] mL/min/1.7 [facility] m2 [facility] LAB GFR Estimate If 67 >60 [place] Black mL/min/1.[address] LAB Calcium 9.5 8.5 - 10.4 [place] mg/dL [facility] Specimen Anatomical Collection Method Collection Time Receive d Time (Source) Location / / Volume Laterality Blood specimen 06/21/2013 1:08 PM 10/17/2 013 1:22 (specimen) CDT PM CDT Marixa Merritt MD LAB - BLOOD ORDERABLES Performing Organization Address City/State/ZIP Code Phon e Number M [facility] [address] [place], [place] [address] [facility] LAB (ABNORMAL) CBC with platelets differential (06/21/2013 1:08 PM CDT) [facility] gist Method Time Signature WBC 10.0 4.0 - [place] 11.0 [facility] 10e9/[facility] RBC Count 5.72 4.4 - 5.9 [place] 10e12/L [facility] Hemoglobin 17.8 (H) 13.3 - [place] 17.7 g/dL [facility] Hematocrit 52.8 40.0 - [place] 53.0 % [facility] MCV 92 78 - 100 [place] fl [facility] MCH 31.1 26.5 - [place] 33.0 pg [facility] MCHC 33.7 31.5 - [place] 36.5 g/dL [facility] RDW 14.7 10.0 - [place] 15.0 % [facility] Platelet Count 249 150 - 450 [place] 10e9/L [facility] Diff Method Automated [facility] LAB % Neutrophils 70.2 % [facility] LAB % Lymphocytes 22.7 % [facility] % Monocytes 5.5 % [facility] LAB % Eosinophils 0.7 % [facility] LAB % Basophils 0.5 % [facility] LAB % Immature 0.4 % [place] Granulocytes [facility] Absolute 7.0 1.6 - 8.3 [place] Neutrophil 10e9/L [facility] Absolute 2.3 0.8 - 5.3 [place] Lymphocytes 10e9/L [facility] Absolute 0.6 0.0 - 1.3 [place] Monocytes 10e9/L [facility] Absolute 0.1 0.0 - 0.7 [place] Eosinophils 10e9/L [facility] Absolute 0.1 0.0 - 0.2 [place] Basophils 10e9/L [facility] Abs Immature 0.0 0 - 0.4 [facility] 10e9/L [facility] Specimen Anatomical Collection Method Collection Time Receive d Time (Source) Location / / Volume Laterality Blood specimen 06/21/2013 1:08 PM 013 1:22 (specimen) CDT PM CDT Marixa Merritt MD LAB - BLOOD ORDERABLES Performing Organization Address City/State/ZIP Code Phon e Number [facility] [address] [place], [place] [address] [facility] EKG 12 lead (06/21/2013 1:07 PM CDT) [facility] gist Method Time Signature Interpretation ECG Click View RADIOLOGY Image link RESULTS to view waveform and result Specimen (Source) Anatomical Collection Method Collection Time Re ceived Time Location / / Volume Laterality 06/21/2013 1:07 PM CDT Marixa Merritt MD ECG ORDERABLES Performing Organization Address City/State/ZIP Code Phon e Number RADIOLOGY RESULTS documented in this encounter Visit Diagnoses Diagnosis Atrial fibrillation (H) - Primary Atrial fibrillation documented in this encounter Administered Medications Inactive Administered Medications - up to 3 most recent administrations Medication Order MAR Action Action Date Dose Rate Site aspirin tablet 325 mg Given 06/21/2013 2:11 PM CDT 325 mg 325 mg, Oral, ONCE, On Felicia 06/21/13 at 1330, For 1 dose etomidate (AMIDATE) injection 9.8 mg Given 06/21/2013 1:51 PM CDT 9.8 mg 9.8 mg (0.1 mg/kg ? 97.5 kg), Intravenous, ONCE, On Felicia 06/21/13 at 1345, For 1 dose fentaNYL (SUBLIMAZE) injection 50 mcg Given 06/21/2013 1:56 PM CDT 50 mcg 50 mcg, Intravenous, ONCE, On Felicia 06/21/13 at 1400, For 1 dose documented in this encounter Active and Recently Administered Medications Times are shown in CDT. Scheduled Medication Order 06/19/2013 06/20/2013 06/21/2013 aspirin tablet 325 mg (COMPLETED) 1411 (Given - Provider: Samantha Hoyos RN) 325 mg, Oral, ONCE, On Felicia 06/21/13 at 1330, For 1 dose etomidate (AMIDATE) injection 9.8 mg (COMPLETED) 1351 (Given - Provider: Samantha Hoyos RN) 9.8 mg (0.1 mg/kg ? 97.5 kg), Intravenous, ONCE, On Felicia 06/21/13 at 1345, For 1 dose fentaNYL (SUBLIMAZE) injection 50 mcg (COMPLETED) 1356 (Given - Provider: Samantha Hoyos RN)1400 (Due) 50 mcg, Intravenous, ONCE, On Felicia 06/21/13 at 1400, For 1 dose documented in this encounter Care Teams Bungy Jump Master Relationship Specialty Start Date End Date No Ref-Primary, Physician PCP - General 06/21/13 12/13/13 documented as of this encounter
--- OUTSIDE RECORDS SUMMARY | 2022-06-25 13:57 | XMS_ITS | Encounter Summary ---
:1965 Author Organization [facility] Address Formerly [facility] [place] [address] Care Team Providers Name Role Phone No Ref-Primary, Physician Primary Care Provider [phone] Maged Aggarwal MD Primary Care Provider Leticia Armendariz MD Primary Care Provider Nahum Lemus MD Unavailable Karuna Ramirez MD Unavailable [phone] Gloria Daniajeanie Arevalo DO Unavailable Tito Almonte MD Unavailable Leticia Armendariz MD Unavailable Leticia Armendariz MD Unavailable Ro Reyna NP Unavailable Kedar Rodriguez MD Unavailable Leticia Armendariz MD Unavailable Cristian Cooper MD Unavailable Torsten Rodriguez MD Unavailable Annabelle Shields BODY PAINTER Unavailable Encounter Details Date Type Department Care Team Description 06/29/2013 Office Visit-[facility] Tiana Marley APRN BODY PAINTER [address] [facility] [address] [facility] [address] [address] [place] [address] [place] [id number] (Wo rk) Social History Tobacco Use Types Packs/Day Years Used Date Smoking Tobacco: Former Cigarettes Quit : 06/26/2011 Alcohol Use Standard Drinks/Week Comments No 0 (1 standard drink = 0.6 oz pure alcoho l) Sex Assigned at Date Recorded 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 Hematoma any artery, 998.1 2. - Chest Pain Precordial, 786.51 3. - Atrial Fibrillation, 427.31 ALLERGIES NKDA MEDICATIONS (prior to changes made [...] 6. protein Powder, Dose/instruction UNKNOWN CHIEF COMPLAINTS right groin hematoma CHIEF COMPLAINT: Possible Right Groin Hematoma. HISTORY OF PRESENT ILLNESS: Mr. Dueñas is a pleasant 48-year-old gentleman who was recently seen by Dr. Ramirez. He had experienced some episodes of palpitations and chest tightness recently. Recently, while at the gym, he had symptoms severe enough to bring him to his knees. Ultimately, he ended up in the Emergency Department where he was found to be in atrial fibrillation with a heart rate at 99 beats per minute. He was cardioverted successfully and released to home. He was seen by Dr. Ramirez on 06/25/2013. She recommended pursuing coronary angiogram to rule out coronary artery disease as an underlying etiology. Heart catheterization was performed on 06/26/2013. He was found to hav e no significant obstructive coronary disease and normal LV systolic function with normal left ventricular end diastolic pressure. Subsequently, he went to the Echo Lab today for a transthoracic echocardiogram when he related to the chemistry technician that he did have a lump at the right groin. He was then fit into my clinic schedule for further evaluation for possible hematoma. He comes in today telling me he is feeling okay, but he still is experiencing some issues with shortness of breath ever since having been cardioverted. His echocardiogram done today does show an ejection fraction of 50-55%. There is mild left ventricular hypertrophy noted, but no regional wall motion a bnormalities. He tells me he does have some discomfort at the right groin. He noticed a lump there recently. Initially, after his discharge, he really had not checked, but happened to find this lump today. On exam this is a well developed, well nourished male who appears his stated age. He is cooperative and appropriate. Vital signs are stable. Neurologically, he is intact. HEENT: Normocephalic, atraumatic, without tenderness or involuntary movements. Face appears symmetric. Visual steiner are full. EOMs intact, conjunctivae clear. Oral mucosa is pink and moist. Neck is supple with full range of motion.Trachea appears midline. There is no thyromegaly, JVD, or carotid bruit noted. Cardiac exam reveals S1 and S2, regular rate and rhythm, no murmur, rub or gallop. Lungs: Chest expansion appears symmetric. Breath sounds are clear to auscultation bilaterally. No wheeze or accessory muscle use. Extremities are warm and dry without edema, cyanosis, or clubbing. The right groin does show a small hematoma, roughly the size of an elongated golf ball. It is relatively soft at this point. There is no bruit appreciated. For additional details regarding this clinic visit please see the note below. 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 PHYSICAL EXAMINATION VITAL SIGNS: Blood Pressure: 146/82Sitting, Right arm, large cuff Pulse- 84.00/min. Weight- 209.80 lbs. Height- 69.5 BMI Measurement: 30 CONSTITUTIONAL [...] time, person and place. MEDICATIONS UPDATED/STARTED TODAY: creatinine (bulk) 100 % Powder, Dose/instruction UNKNOWN, #0 (Zero) protein Powder, Dose/instruction UNKNOWN, #0 (Zero) IMPRESSIONS/PLAN IMPRESSION/PLAN: Right groin hematoma, status post coronary angiogram. At this point, I did discuss with Mr. Dueñas, my finding of a small hematoma. I did relate to him that it would heal, but that it would take a fair amount of time. I asked him to refrain from any heavy lifting and pushing or pulling for the next two weeks. Additionally, I have asked him to continue to monitor the site. If he notices any grown in the hematoma or increased issues with pain, I have asked him to contact the office again. He does have a follow-up appointment with Dr. Ramirez scheduled within the next couple ofweeks. Further evaluation at that time. Thank you for allowing me to participate in the care of this patient. Karuna James, EDISON documented in this encounter Plan of Treatment Not on filedocumented as of this encounter Visit Diagnoses Not on filedocumented in this encounter Care Teams Oven Tender Bagels Relationship Specialty Start Date End Date No Ref-Primary, PCP - General 06/21/13 12/13/13 Physician Maged Aggarwal, PCP - General Internal Medicine 12/14/1308/19 [address] [place], [place] [id number] Leticia Armendariz, PCP - General Internal Medicine 03/17/15 Leticia Armendariz, PCP - Assigned PCP 06/30/[address] [address] Nahum Lemus MD 09/16/16 CT [address] [facility] [address] [address] [place] [id number] Karuna Ramirez MD Cardiology 09/16/16 MD Erendira Karime Castro, Referring Physician Orthopedics 05/13/17 [facility] [address] [place], [place] [address] Tito Almonte MD MD Orthopedics 05/13/[address] [place], [place] [address] Leticia Armendariz, Assigned PCP 06/30/14 01/06/19 [employer] [address] [place] [address] Ro Reyna, Assigned PCP 01/07/19 [employer] [address] [place], [place] [address] Kedar Rodriguez MD Assigned PCP 08/26/19 12/29/19 [address] [facility] [address] [place], [place] [address] Leticia Armendariz, Assigned PCP 12/30/19 02/07/21 [employer] [address] [place] [id number] Cristian Cooper MD Assigned Heart and 06/27/20 07/11/21 [address], Vascular Provider [address] [place], [place] [address] Torsten Rodriguez MD Assigned Musculoskeletal 08/24/20 02/19/[address] Provider [place], [place] [address] Annabelle Shields, EDISON Assigned PCP 02/08/21 [address] [place], [place] [id number] documented as of this encounter
--- OUTSIDE RECORDS SUMMARY | 2022-06-25 13:57 | XMS_ITS | Encounter Summary ---
:1965 Author Organization [facility] Address [address] [place] [address] Care Team Providers Name Role Phone No Ref-Primary, Physician Primary Care Provider [phone] Encounter Details Date Type Department Care Team Description 06/25/2013 Orders Only [facility] Rama Wooten, [facility] p [facility] Heart RN (Prima ry Dx) Care [address] [place] [address] Social History Tobacco Use Types Packs/Day Years Used Date Smoking Tobacco: Former Alcohol Use Standard Drinks/Week Comments No 0 (1 standard drink = 0.6 oz pure alcoho l) Sex Assigned at Date Recorded 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
[2022-06-25 14:00] VITALS: BP 134/87; PULSE 90; RESP 18; O2SAT 98
[2022-06-25 14:00] LABS: Albumin* 4.3 g/dL (3.3-5.0); Chloride* 103 mmol/L (96-114); Sodium* 138 mmol/L (135-149)
[2022-06-25 14:01] LABS: Potassium* 3.8 mmol/L (3.6-5.1)
[2022-06-25 14:03] LABS: Alkaline Phosphatase* 60 U/L (40-150); Aspartate Amino Transferase* 22 U/L (12-35); Bilirubin Direct* 0.1 mg/dL (0.0-0.5); Bilirubin Total* 0.7 mg/dL (0.1-1.5); Blood Urea Nitrogen* 10 mg/dL (7-30); Carbon Dioxide* 29 mmol/L (20-32); Creatinine* 1.2 mg/dL (0.5-1.5); Est. Creatinine Clearance* 70.13; Estimated Glomerular Filt Rate 71 ml/min; Glucose* 115 mg/dL (60-115); INR 1.04 (0.91-1.10)
[2022-06-25 14:04] LABS: Alanine Aminotransferase* 17 U/L (4-50); Partial Thromboplastin Time* 30 Seconds (23-33)
[2022-06-25 14:06] LABS: D Dimer Quantitative* 0.27 ug/ml (0.00-0.50)
[2022-06-25 14:12] LABS: NT Pro B Type NatriureticPept* 24 PG/mL (0-125)
[2022-06-25 14:29] LABS: PCR FLU A Negative PCR FLU A (Negative); PCR FLU B Negative PCR FLU B (Negative); PCR RSV Negative PCR RSV (Negative)
[2022-06-25 14:30] VITALS: BP 140/94; PULSE 89; RESP 12; O2SAT 97
[2022-06-25 14:35] LABS: SARS PCR* Negative SARS-CoV-2 (Negative)
--- NOTE | 2022-06-25 14:40 | ED_ITS ---
HPI - Chest Pain General Date Seen: 06/25/22 Chief Complaint: Chest Pain Stated Complaint: Tightness in chest, numb left arm, disoriented Time Seen by Provider: 06/25/22 13:17 Source: patient Mode of arrival: ambulatory Limitations: no limitations History of Present Illness HPI narrative: Patient is a nice 57-year-old gentleman who presents here with chest pain that occurred 24 hours ago, describes his anterior chest more left-sided with radiation to his left shoulder and down his left arm. Is significantly improved from yesterday when this occurred but still little bit there. Describes his pain when this occurred his proximally or 05/15, now is down to 2 or 3. He does not describe it occurring with exertion it occurred with rest, he does not have any pain with exertion today when he moves around, he had denies a cough, no wheezing, no abdominal pain. Diaphoresis or nausea. Past history of atrial fibrillation, and hypertension but no past history of any coronary artery disease, he is a smoker of 1-2 packs per day, family history is positive and is unsure about his cholesterol. MD complaint: chest pain Onset (ago): hour(s) Timing of current episode: constant Prior episodes: Yes Pain location: substernal and left chest Pain radiation: left arm Severity: mild Quality: heaviness Relieving factors: nothing Exacerbating factors: nothing Treatment prior to arrival: aspirin Risk Factors Coronary artery disease risk factors: smoking history and hypertension Thoracic aortic dissection risk factors: none Related Data Home Medications Medication Instructions Recorded Confirmed amlodipine 5 mg tablet mg 06/25/22 fenofibrate nanocrystallized 48 mg mg PO 06/25/22 tablet losartan 50 mg tablet mg 06/25/22 tamsulosin 0.4 mg capsule mg PO 06/25/22 Allergies Allergy/AdvReac Type Severity Reaction Status Date / Time No Known Drug Allergies Allergy Verified 06/25/22 13:34 Review of Systems Status of ROS Reports: 10 or more systems reviewed and unremarkable except as noted in History and below [facility] Social History Smoking Status: Current every day smoker What tobacco products do you use: cigarettes Do you use any of these nicotine containing products: None Second hand tobacco smoke exposure: No How often do you have a drink containing alcohol: never AUDIT-C Alcohol total score: 0 Non-prescribed substance use: denies use Exam Narrative Exam Narrative: Patient is a well-muscled gentleman seen in room 8, is alert oriented in no apparent distress speaking to me normally, pupils equal round reactive to light there is no scleral icterus or redness TMs bilaterally are normal oropharynx is normal there is no adenopathy anterior posterior chains chest is clear bilaterally with no wheezing crackles noted, heart sounds are normal, no palpable tenderness noted on his chest, abdomen is soft there is no guarding no past splenomegaly no CVA tenderness, no masses, suggestive of aneurysmal dilatation, or other abnormality, his extremities are all normal, moves all extremities independently well with normal power both proximally and distally, and symmetrical. Pulses are normal. Const Vital Signs, click to edit/add: Vital Signs - 24 hr 06/25/22 13:22 06/25/22 13:30 06/25/22 14:00 Temperature 98.2 F Pulse Rate [Pulse Oximeter] 96 92 90 Respiratory Rate 18 18 18 Blood Pressure [Left Upper Arm] 161/74 H 154/104 H 134/87 Pulse Oximetry 97 98 98 Oxygen Delivery Method Room Air Room Air Room Air 06/25/22 14:30 06/25/22 15:00 06/25/22 15:30 Temperature Pulse Rate [Pulse Oximeter] 89 89 83 Respiratory Rate 12 15 23 Blood Pressure [Left Upper Arm] 140/94 H 153/98 H 154/94 H Pulse Oximetry 97 97 96 Oxygen Delivery Method Room Air Room Air Room Air Documenting provider has reviewed patient's vital signs: yes Course Course Hospital Course: I discussed with the patient that his troponins x2 90 minutes apart are negative, D-dimer was negative chest x-ray looks good, and the remainder of his blood tests were all reasonable, Multiple things are considered during this evaluation, but given the above findings I think the likelihood of them being positive given the pain occurred at rest, was a bit atypical and not associated with weightlifting, I do not think this is aortic dissection, pulmonary embolism, myocardial infarction, pneumothorax or other 8th something cardiac or pulmonary related. I do think this could be GI and I thinks restarting his Prilosec would be a good idea. However he does have risk factors I discussed with him that repeating a stress test in the next couple weeks would be appropriate and then staying on the aspirin. 81 mg a day, smoking cessation is also strongly suggested. Recurrent pain, shortness of breath, or other symptoms such as syncope he should come back to the ER and be re-evaluated. Was comfortable with this plan. He has a primary care physician and Ashtyn that he will see in follow-up Vital Signs Vital signs: Initial Vital Signs Temperature 98.2 F 06/25/22 13:22 Temperature Source Temporal Artery Scan 06/25/22 13:22 Pulse Rate 96 06/25/22 13:22 Respiratory Rate 18 06/25/22 13:22 Blood Pressure 161/74 H 06/25/22 13:22 Blood Pressure Mean 103 06/25/22 13:22 Blood Pressure Position Supine 06/25/22 13:22 Pulse Oximetry 97 06/25/22 13:22 Oxygen Delivery Method 06/25/22 13:22 Vital Signs Temperature 98.2 F 06/25/22 13:22 Pulse Rate 96 06/25/22 13:22 Respiratory Rate 18 06/25/22 13:22 Blood Pressure 161/74 H 06/25/22 13:22 Pulse Oximetry 97 06/25/22 13:22 Oxygen Delivery Method 06/25/22 13:22 Temperature 98.2 F 06/25/22 13:22 Pulse Rate 83 06/25/22 15:30 Respiratory Rate 23 06/25/22 15:30 Blood Pressure 154/94 H 06/25/22 15:30 Pulse Oximetry 96 06/25/22 15:30 Oxygen Delivery Method 06/25/22 15:30 MDM - Chest Pain MDM Narrative Medical decision making narrative: During the evaluation of this patient I considered multiple differential diagnosis is. The life-threatening differential diagnosis include coronary disease/AK, pulmonary embolism, pneumothorax, pneumonia, and aortic dissection. Other differential diagnosis included but were not limited to pericarditis, myocarditis, chest wall pain, GERD, esophageal rupture, rib fracture contusion, pleurisy, as well as other etiologies. Lab Data Labs: Lab Results 06/25/22 06/25/22 06/25/22 Range/Units 13:28 13:28 13:28 WBC 8.98 (4.50-11.00) K/uL RBC 4.91 (4.30-5.90) m/uL Hgb 15.3 (13.5-17.5) gm/dL Hct 44.9 (37.0-53.0) % MCV 91 (80-100) fL MCH 31 (26-34) pg MCHC 34 (32-36) gm/dL RDW Coeff of Phil 12.9 (11.5-15.5) % Plt Count 231 (140-440) K/uL Neut % (Auto) 67.0 (42.0-72.0) % Lymph % (Auto) 21.4 (20-44) % Robertson % (Auto) 9.7 (0.0-11.0) % Eos % (Auto) 1.2 (0.0-7.0) % Baso % (Auto) 0.3 (0.0-3.0) % Neut # (Auto) 6.01 (1.7-7.0) K/uL Lymph # (Auto) 1.92 (0.90-2.90) K/uL Robertson # (Auto) 0.90 (0.00-0.90) K/UL Eos # (Auto) 0.11 (0.00-0.50) K/uL Baso # (Auto) 0.03 (0.00-0.30) K/uL Abs Immat Gran (auto) 0.04 (0.00-0.30) K/uL INR 1.04 (0.91-1.10) APTT 30 (23-33) Seconds D-Dimer Quant (PE/DVT) 0.27 (0.00-0.50) ug/ml Sodium 138 (135-149) mmol/L Potassium 3.8 (3.6-5.1) mmol/L Chloride 103 (96-114) mmol/L Carbon Dioxide 29 (20-32) mmol/L BUN 10 (7-30) mg/dL Creatinine 1.2 (0.5-1.5) mg/dL Estimated Creat Clear 70.13 Estimated GFR 71 ml/min Glucose 115 (60-115) mg/dL Calcium 9.0 (8.4-10.6) mg/dL Total Bilirubin 0.7 (0.1-1.5) mg/dL Direct Bilirubin 0.1 (0.0-0.5) mg/dL AST 22 (12-35) U/L ALT 17 (4-50) U/L Alkaline Phosphatase 60 (40-150) U/L NT-Pro-B Natriuret Pep 24 (0-125) PG/mL Total Protein 7.0 (6.0-8.3) g/dL Albumin 4.3 (3.3-5.0) g/dL SARS-CoV-2 (PCR) (Negative) Influenza Type A (PCR) (Negative) Influenza Type B (PCR) (Negative) RSV (PCR) (Negative) POC Troponin I (0.01-0.04) ng/ml 06/25/22 06/25/22 06/25/22 Range/Units 13:36 13:36 15:00 WBC (4.50-11.00) K/uL RBC (4.30-5.90) m/uL Hgb (13.5-17.5) gm/dL Hct (37.0-53.0) % MCV (80-100) fL MCH (26-34) pg MCHC (32-36) gm/dL RDW Coeff of Phil (11.5-15.5) % Plt Count (140-440) K/uL Neut % (Auto) (42.0-72.0) % Lymph % (Auto) (20-44) % Robertson % (Auto) (0.0-11.0) % Eos % (Auto) (0.0-7.0) % Baso % (Auto) (0.0-3.0) % Neut # (Auto) (1.7-7.0) K/uL Lymph # (Auto) (0.90-2.90) K/uL Robertson # (Auto) (0.00-0.90) K/UL Eos # (Auto) (0.00-0.50) K/uL Baso # (Auto) (0.00-0.30) K/uL Abs Immat Gran (auto) (0.00-0.30) K/uL INR (0.91-1.10) APTT (23-33) Seconds D-Dimer Quant (PE/DVT) (0.00-0.50) ug/ml Sodium (135-149) mmol/L Potassium (3.6-5.1) mmol/L Chloride (96-114) mmol/L Carbon Dioxide (20-32) mmol/L BUN (7-30) mg/dL Creatinine (0.5-1.5) mg/dL Estimated Creat Clear Estimated GFR ml/min Glucose (60-115) mg/dL Calcium (8.4-10.6) mg/dL Total Bilirubin (0.1-1.5) mg/dL Direct Bilirubin (0.0-0.5) mg/dL AST (12-35) U/L ALT (4-50) U/L Alkaline Phosphatase (40-150) U/L NT-Pro-B Natriuret Pep (0-125) PG/mL Total Protein (6.0-8.3) g/dL Albumin (3.3-5.0) g/dL SARS-CoV-2 (PCR) Negative SARS-CoV-2 (Negative) Influenza Type A (PCR) Negative PCR FLU A (Negative) Influenza Type B (PCR) Negative PCR FLU B (Negative) RSV (PCR) Negative PCR RSV (Negative) POC Troponin I 0.01 0.00 L (0.01-0.04) ng/ml Discharge Plan Discharge Clinical Impression: Chest pain Patient Disposition: Home, Self-Care Condition: Stable Instructions: Chest Pain (DC) Additional Instructions: Home rest use of aspirin 81 mg a day follow-up with primary care within a week, recommend stress test as an outpatient, I would also try some Prilosec 20 mg a day and I would take this for the next month, in the possibility that this is GI related. Increasing chest pain, syncope, or chest pain with exertion would make me worried there is something else going on in please come back to the emergency Prescriptions: No Action losartan 50 mg tablet Label Comments: TAKE 1 TABLET BY MOUTH EVERY DAY amlodipine 5 mg tablet Label Comments: TAKE 1 TABLET BY MOUTH EVERY DAY tamsulosin 0.4 mg capsule PO Label Comments: TAKE 2 CAPSULES BY MOUTH EVERY DAY fenofibrate nanocrystallized 48 mg tablet PO Label Comments: TAKE 2 TABLETS BY MOUTH EVERY DAY Follow Up/Referrals: Provider,Not a Local [Primary Care Provider] - Stand Alone Forms: MyHealth Info Instructions
[2022-06-25 15:00] VITALS: BP 153/98; PULSE 89; RESP 15; O2SAT 97
[2022-06-25 15:30] VITALS: BP 154/94; PULSE 83; RESP 23; O2SAT 96
== END 2022-06-25 15:49 | disposition home or self-care (01) ==
PROVIDERS: Emergency Provider Family Medicine
DX: R07.9 Chest pain, unspecified (principal); I10 Essential (primary) hypertension; F17.210 Nicotine dependence, cigarettes, uncomplicated
CPT/HCPCS: 36415; 71045; 80048; 80076; 83880; 85025; 85379; 85610; 85730; 87502; 87634; 87635; 93005; 99284; 99285; A9270

== ENCOUNTER 2024-10-10 16:08 | Outpatient (CLI) | payer MEDICAID, SELFPAY ==
[2024-10-10 23:09] LABS: Chlamydia DNA Amplified* NOT DETECTED (No Detected); GC DNA Amplified* NOT DETECTED (No Detected)
== END 2024-10-10 16:09 | disposition home or self-care (01) ==
LOC: NFLDUCREF 16:09
PROVIDERS: Visit Provider Physician Assistant
DX: R30.0 Dysuria (principal); A64 Unspecified sexually transmitted disease; R82.90 Unspecified abnormal findings in urine
CPT/HCPCS: 87491; 87591